=== PATIENT | male | born 1930 | race Caucasian/White ===

== ENCOUNTER 2017-10-06 09:06 | Day surgery (SDC) | payer OTHER ==
--- OUTSIDE RECORDS SUMMARY | 2017-10-06 09:09 | XMS REPORT | Clinical Summary ---
:1930 Author Organization [facility] Address [address] [place] [address] Care Team Providers Name Role Phone Asked, No Pcp Primary Care Provider Unavailable Allergies Active Allergy Reactions Severity Noted Date Comments Iodine Hives High 08/12/2017 Current Medications Prescription Sig. Disp. Refills Start Date End Date Status benzonatate Take 100 mg by 06/26/2017 Active (TESSALON) 100 MG mouth as capsule needed for cough. carvedilol (COREG) Take 25 mg by 06/18/2017 Active 25 MG tablet mouth 2 (two) times a day with meals. ferrous sulfate 325 Take 325 mg by Active (65 FE) MG tablet mouth daily with breakfast. amLODIPine Take 5 mg by Active (NORVASC) 5 mg mouth 2 (two) tablet times a day. simvastatin (ZOCOR) Take 20 mg by Active 20 MG tablet mouth nightly. aspirin (ECOTRIN) Take 81 mg by Active 81 MG enteric mouth daily. coated tablet VIT Take 1 tablet Active C/E/ZN/COPPR/LUTEIN by mouth 2 /ZEAXAN (two) times a (PRESERVISION AREDS day. 2 ORAL) FOLIC Take 1 tablet Active ACID/MULTIVIT,IRON, by mouth ENROLLMENT ADVISOR (CENTRUM daily. ORAL) furosemide (LASIX) Take 80 mg by Active 40 mg tablet mouth daily. Pt normally takes PRN but has been taking daily for the last 2 weeks due to fluid build up SENNOSIDES/DOCUSATE Take 2 tablets Active SODIUM (SENOKOT-S by mouth as ORAL) needed. clopidogrel 07/29/2017 08/12/2017 Discontinued (PLAVIX) 75 mg tablet HEMOCYTE-PLUS 106 06/26/2017 08/12/2017 Discontinued mg iron- 1 mg capsule doxazosin (CARDURA) 06/28/2017 08/12/2017 Discontinued 2 MG tablet acetaminophen-codei Take 1 tablet 12 tablet 0 08/12/2017 08/15/2017 ne (TYLENOL WITH by mouth every CODEINE #3) 300-30 6 (six) hours mg per tablet as needed for moderate pain for up to 3 days. 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 (Primary Dx) 08/12/2017 Hospital Encounter General Surgery Kee Curran MD 08/12/2017 Anesthesia Event General Surgery Daria Huerta MD 08/12/2017 Procedure Pass General Surgery 08/12/2017 Surgery General Surgery Kee Curran Left UPPER EXTREMITY MD Casey AV FISTULA CREATION after 10/05/2016 Social History Tobacco Use Types Packs/Day Years Used Date Never Smoker Smokeless Tobacco: Never Used Alcohol Use Drinks/Week oz/Week Comments No Sex Assigned at Date Recorded Not on file Last Filed Vital Signs Vital Sign Reading Time Taken Blood Pressure 168/72 08/12/2017 6:17 PM CARDIOTHORACIC PHYSIOTHERAPIST Pulse 64 08/12/2017 6:17 PM CARDIOTHORACIC PHYSIOTHERAPIST Temperature 37.1 C (98.7 F) 08/12/2017 6:17 PM CARDIOTHORACIC PHYSIOTHERAPIST Respiratory Rate 16 08/12/2017 6:17 PM CARDIOTHORACIC PHYSIOTHERAPIST Oxygen Saturation 96% 08/12/2017 6:17 PM CARDIOTHORACIC PHYSIOTHERAPIST Inhaled Oxygen Concentration - - Weight 83.5 kg (184 lb) 08/12/2017 11:51 AM CARDIOTHORACIC PHYSIOTHERAPIST Height 177.8 cm (5' 10") 08/12/2017 11:51 AM CARDIOTHORACIC PHYSIOTHERAPIST Body Mass Index 26.4 08/12/2017 11:51 AM CARDIOTHORACIC PHYSIOTHERAPIST Plan of Treatment Date Type Specialty Care Team Description 10/08/2017 Office Visit General Surgery Kee Curran MD [address] [facility] [address] [place] [id number] Health Maintenance Due Date Last Done Comments SHINGRIX VACCINE (#1) 1980 ZOSTER VACCINE 1990 PNEUMOCOCCAL POLYSACCHARIDE VACCINE AGE 65 AND OVER 1995 PNEUMOCOCCAL-13 1995 INFLUENZA VACCINE 01/06/2018 Procedures Procedure Name Priority Date/Time Associated Diagnosis Comments OR AN ELECTIVE Routine 08/12/2017 3:10 PM SUPRAGLOTTIC AIRWAY CARDIOTHORACIC PHYSIOTHERAPIST Procedure Note - Wilmer Contreras MD - 08/12/2017 3:10 PM CARDIOTHORACIC PHYSIOTHERAPIST Airway Performed by: DARIA HUERTA Authorized by: DARIA HUERTA Location: OR Urgency: Elective Difficult Airway: No Anesthesiologist: DARIA HUERTA Performed by: anesthesiologist Preoxygenated with 100% O2: Yes C-spine Precautions Maintained Throughout: Yes Mask Ventilation: Easy mask Final Airway Type: Supraglottic airway Final LMA: Classic LMA Size: 4 Number of Attempts at Approach: 1 Left UPPER EXTREMITY AV FISTULA 08/12/2017 2:45 PM CARDIOTHORACIC PHYSIOTHERAPIST End stage renal disease CREATION Case Notes C-ARM Special Needs C-ARM after 10/05/2016 Results Potassium, syringe (08/12/2017 11:45 AM) Component Value Ref Range Potassium, syringe 4.7 3.5 - 5.0 mEq/L Specimen Performing Laboratory Blood [facility] DEPARTMENT OF PATHOLOGY AND GENOMIC MEDICINE [address] [place] [address] Hemoglobin, syringe (08/12/2017 11:45 AM) Component Value Ref Range Hemoglobin, syringe 9.3 (L) 14.0 - 18.0 g/dL Specimen Performing Laboratory Blood [facility] DEPARTMENT OF PATHOLOGY AND GENOMIC MEDICINE [address] [place] [address] Glucose level, syringe (08/12/2017 11:45 AM) Component Value Ref Range Glucose, syringe 96 65 - 99 mg/dL Specimen Performing Laboratory Blood [facility] DEPARTMENT OF PATHOLOGY AND GENOMIC MEDICINE [address] [place] [address] after 10/05/2016 Insurance Payer Benefit Plan / Group Subscriber ID Type Phone Address MEDICARE MEDICARE PART A AND B xxxxxxxxxx Medicare [place], [place] AETNA AETNA PPO OPEN CHOICE xxxxxxxxx PPO [employer] Self 1930 Home: [address] Liability [phone] [phone] [place] [address]
[2017-10-06] MEDS ORDERED: NA CHLORIDE 0.9% 1,000 ML ONE (09:35)
[2017-10-06 09:39] LABS: Absolute Lymphocytes (CBC) 1.1 K/uL (0.7-4.9); Absolute Monocytes 0.6 K/uL (0.1-1.3); Absolute Neutrophil 3.9 K/uL (1.8-8.0); Basophils % 0.8 % (0-1.3); Eosinophils % 4.4 % (0-4.4); Hematocrit 24.5 % (39.6-49.0); Lymphocytes % 18.4 % (15.3-44.8); MCH 31.1 pg (27.0-35.0); MCV 91.8 fL (80-100); MPV 6.5 fL (7.6-11.3); Monocytes % 9.6 % (3.3-12.3); RBC Red Blood Cell Count 2.67 M/uL (4.33-5.43)
[2017-10-06 09:41] LABS: Potassium 4.4 mEq/L (3.6-5.0)
[2017-10-06] MEDS ORDERED: NS 0.9% VIAL 10 ML ONE (09:58)
[2017-10-06] MEDS ORDERED: HEPARIN 5000 UNIT/ML 1 ML VIAL ONE (09:59)
[2017-10-06] MEDS ORDERED: LIDOCAINE 1% 20 ML MDV ONE (09:59)
[2017-10-06] MEDS ORDERED: NA CHLORIDE 0.9% 100 ML IV ONE (09:59)
[2017-10-06] MEDS ORDERED: PROPOFOL 200 MG/20 ML VIAL IV ONE ×2 (10:17→11:31)
[2017-10-06] MEDS ORDERED: FENTANYL CITR 100 MCG/2 ML ONE (10:17)
[2017-10-06] MEDS ORDERED: LIDOCAINE 2% MPF 5 ML VIAL ONE (10:17)
[2017-10-06] MEDS ORDERED: CEFAZOLIN SODIUM 1 GM/VIAL ONE (11:28)
--- NOTE | 2017-10-06 11:51 | RAD REPORT ---
EXAM DESCRIPTION: RAD - Fluoroscopy <1 Hour - 10/06/2017 11:46 am CLINICAL HISTORY: Venous catheter insertion. COMPARISON: None. FINDINGS: Fluoroscopic imaging is submitted from placement of a venous catheter. Details of the pro cedure not available.
--- NOTE | 2017-10-06 12:14 | RAD REPORT ---
EXAM DESCRIPTION: RAD - Chest Single View - 10/06/2017 12:07 pm CLINICAL HISTORY: Venous catheter placement COMPARISON: 10/05/2017 FINDINGS: Portable technique limits examination quality. Right-sided venous catheter its tip in the SVC. No postprocedure pneumothorax. Moderate left pleural effusion again noted. The heart is normal in size. No displaced fractures. IMPRESSION: No postprocedure pneumothorax.
[2017-10-06] MEDS ORDERED: HYDROCODONE/APAP 7.5/325 MG TAB ONE (12:59)
[2017-10-06 13:28] VITALS: BP 153/51; TEMP 97.7; O2SAT 98
--- NOTE | 2017-10-07 00:53 | OP ---
Date of Procedure: 10/06/2017 Surgeon: Arnie Mena MD Preoperative Diagnosis: End-stage renal disease. Postoperative Diagnosis: End-stage renal disease. Procedure: Placement of right IJ Tesio catheter and interpretation of intraoperative fluoroscopy. Estimated Blood Loss: Minimal. Specimen: None. Findings: Normal anatomy. Anesthesia: MAC. Disposition: The patient tolerated the procedure in stable condition and was taken to recovery in go od general condition. Procedure In Detail: The patient was brought to the OR and placed in supine position. MAC anesthesi a was begun. The patient was prepped and draped in usual sterile fashion. Lidocaine 1% was infiltra herson locally. An 18-gauge needle was used to access the right IJ vein. Guidewire was passed. Positi on was confirmed with fluoroscopy. Counterincision was made on the right anterior chest. Tunneling device was used to tunnel the catheter between the 2 wounds. Seldinger technique was used. Tip of t he catheter was placed in the SVC under direct vision and flushed with heparin and packed with hepari n with good blood flow. Then, 3-0 chromic was used to approximate the subcutaneous tissue and 3-0 ny jocy was used to secure the tube to the chest wall. Sterile dressing was applied. The patient was aw akened and taken to Recovery in good general condition. Chest x-ray has been ordered. Discharge Note: The patient will go to Day Surgery and home when stable. Disposition: Home. Condition: Stable. Discharge Instructions: Resume home medications and diet. Activity as tolerated. No heavy lifting. Remove outer dressing in 2 days. Shower. Keep wound clean and dry. Follow up in my office in 2 w eeks, call for appointment. Follow up in dialysis. /MODL Voice ID: [id number] Report ID: [id number]
== END 2017-10-06 13:22 | disposition home or self-care (01) ==
LOC: OR 09:06
PROVIDERS: ATTEND Surgery
PROC: 05HM33Z Insertion of Infusion Device into Right Internal Jugular Vein, Percutaneous Approach (ICD-10-PCS; 2017-10-06)
PROC: 0JH63XZ Insertion of Tunneled Vascular Access Device into Chest Subcutaneous Tissue and Fascia, Percutaneous Approach (ICD-10-PCS; principal; 2017-10-06 11:00)
DX: I12.0 Hypertensive chronic kidney disease with stage 5 chronic kidney disease or end stage renal disease (principal); N18.6 End stage renal disease; Z85.038 Personal history of other malignant neoplasm of large intestine; Z88.3 Allergy status to other anti-infective agents
CPT/HCPCS: 36415; 36565; 71045; 80048; 85025; C1752; J0690; J1644; J3010; J7030; 76000

== ENCOUNTER 2017-10-11 16:07 | Inpatient (IN) | payer OTHER ==
--- OUTSIDE RECORDS SUMMARY | 2017-10-11 16:09 | XMS REPORT | Clinical Summary ---
:1930 Author Organization [facility] Address [address] [place] [address] Care Team Providers Name Role Phone Asked, [...] Take 1 tablet Active ACID/MULTIVIT,IRON, by mouth SOLAR FABRICATION TECHNICIAN (CENTRUM daily. 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 (Primary Dx) 08/12/2017 Hospital Encounter General Surgery Kee Curran MD 08/12/2017 Anesthesia Event General Surgery Daria Huerta MD 08/12/2017 Procedure Pass General Surgery 08/12/2017 Surgery General Surgery Kee Curran Left UPPER EXTREMITY MD Casey AV FISTULA CREATION after 10/10/2016 Social History Tobacco Use Types Packs/Day Years Used Date Never Smoker Smokeless Tobacco: Never Used Alcohol Use Drinks/Week oz/Week Comments No Sex Assigned at Date Recorded Not on file Last Filed Vital Signs Vital Sign Reading Time Taken Blood Pressure 168/72 08/12/2017 6:17 PM BRAKE LINING FINISHER Pulse 64 08/12/2017 6:17 PM BRAKE LINING FINISHER Temperature 37.1 C (98.7 F) 08/12/2017 6:17 PM BRAKE LINING FINISHER Respiratory Rate 16 08/12/2017 6:17 PM BRAKE LINING FINISHER Oxygen Saturation 96% 08/12/2017 6:17 PM BRAKE LINING FINISHER Inhaled Oxygen Concentration - - Weight 81.5 kg (179 lb 9.6 oz) 10/08/2017 2:56 PM CDT Height 177.8 cm (5' 10") 10/08/2017 2:56 PM CDT Body Mass Index 25.77 10/08/2017 2:56 PM CDT Plan of Treatment Health Maintenance Due Date Last Done Comments SHINGRIX VACCINE (#1) 1980 ZOSTER VACCINE 1990 PNEUMOCOCCAL POLYSACCHARIDE VACCINE AGE 65 AND OVER 1995 PNEUMOCOCCAL-13 1995 INFLUENZA VACCINE 01/06/2018 Procedures Procedure Name Priority Date/Time Associated Diagnosis Comments DC AN ELECTIVE Routine 08/12/2017 3:10 PM SUPRAGLOTTIC AIRWAY BRAKE LINING FINISHER Procedure Note - Wilmer Contreras MD - 08/12/2017 3:10 PM BRAKE LINING FINISHER Airway Performed by: DARIA HUERTA Authorized by: DARIA HUERTA Location: OR Urgency: Elective Difficult Airway: No Anesthesiologist: DARIA HUERTA Performed by: anesthesiologist Preoxygenated with 100% O2: Yes C-spine Precautions Maintained Throughout: Yes Mask Ventilation: Easy mask Final Airway Type: Supraglottic airway Final LMA: Classic LMA Size: 4 Number of Attempts at Approach: 1 Left UPPER EXTREMITY AV FISTULA 08/12/2017 2:45 PM BRAKE LINING FINISHER End stage renal disease CREATION Case Notes C-ARM Special Needs C-ARM after 10/10/2016 Results Potassium, syringe (08/12/2017 11:45 AM) Component Value Ref Range Potassium, syringe 4.7 3.5 - 5.0 mEq/L Specimen Performing Laboratory Blood [facility] DEPARTMENT OF PATHOLOGY AND GENOMIC MEDICINE [address] [place] [phone] Hemoglobin, syringe (08/12/2017 11:45 AM) Component Value Ref Range Hemoglobin, syringe 9.3 (L) 14.0 - 18.0 g/dL Specimen Performing Laboratory Blood [facility] DEPARTMENT OF PATHOLOGY AND GENOMIC MEDICINE [address] [place] [id number] Glucose level, syringe (08/12/2017 11:45 AM) Component Value Ref Range Glucose, syringe 96 65 - 99 mg/dL Specimen Performing Laboratory Blood [facility] DEPARTMENT OF PATHOLOGY AND GENOMIC MEDICINE [address] [place] [address] after 10/10/2016 Insurance Payer Benefit Plan / Group Subscriber ID Type Phone Address MEDICARE MEDICARE PART A AND B xxxxxxxxxx Medicare [place], [place] AETNA AETNA PPO OPEN CHOICE xxxxxxxxx PPO [employer] Self 1930 Home: [address] [phone] [place] [address]
[2017-10-11] MEDS ORDERED: FUROSEMIDE 40 MG/4 ML VIAL ONE (16:37)
[2017-10-11 17:17] LABS: Absolute Monocytes 0.9 K/uL (0.1-1.3); Absolute Neutrophil 8.8 K/uL (1.8-8.0); Basophils % 0.7 % (0-1.3); Hematocrit 23.7 % (39.6-49.0); Lymphocytes % 8.9 % (15.3-44.8); MCH 30.2 pg (27.0-35.0); MCV 92.1 fL (80-100); MPV 6.8 fL (7.6-11.3); Monocytes % 8.6 % (3.3-12.3); RBC Red Blood Cell Count 2.58 M/uL (4.33-5.43)
[2017-10-11 17:19] LABS: Protime INR 1.23
--- NOTE | 2017-10-11 17:31 | RAD REPORT ---
EXAM DESCRIPTION: RAD - Chest Single View - 10/11/2017 5:25 pm CLINICAL HISTORY: Shortness of breath COMPARISON: 10/06/2017 FINDINGS: Portable technique limits examination quality. Moderate left pleural effusion is noted, chronic in appearing unchanged since prior study. Trace righ t pleural effusion is seen. Since the prior study, a moderate right lower lobe patchy opacity has dev eloped, likely representing pneumonia. Heart is moderately enlarged in size. Right-sided venous lauren ter tip in the SVC. IMPRESSION: Interval development of a patchy opacity in the right lower lobe suspicious for developi ng pneumonia. Trace right pleural effusion also present. Chronic moderate-size left pleural effusion, stable.
[2017-10-11 17:43] LABS: ALT/SGPT 11 IU/L (10-60); AST/SGOT 29 IU/L (10-42); Albumin 2.8 g/dL (3.2-5.5); Alkaline Phosphatase 74 IU/L (42-121); BUN Blood Urea Nitrogen 50 mg/dL (6-20); Bicarbonate 30 mEq/L (21-31); Bilirubin Direct < 0.1 mg/dL (0-0.2); Bilirubin Total 0.3 mg/dL (0.3-1.2); Glucose Level 133 mg/dL (65-120); Potassium 4.3 mEq/L (3.6-5.0); Protein, Total 6.8 g/dL (6.0-8.3); Sodium Level 138 mEq/L (135-145)
[2017-10-11] MEDS ORDERED: CEFTRIAXONE/SWI 1gm 1 GM/10 ML SYR ONE (17:43)
[2017-10-11] MEDS ORDERED: AZITHROMYCIN IV 500 MG in NA CHLORIDE 0.9% 250 ML IVPB ONE (18:00)
--- NOTE | 2017-10-11 18:08 | EDPHYS ---
Physician Documentation [facility] Name: Evans Thomas Age: 87 yrs Sex: Male : 1930 Arrival Date: 10/11/2017 Time: 16:15 Bed 2 Private MD: ED Physician Mg Collado HPI: 10/11 16:37 This 87 yrs old Male presents to ER via EMS with complaints of Shortness Of rn Breath. 16:37 The patient has shortness of breath at rest, with light activity. Onset: The rn symptoms/episode began/occurred last night. Duration: The symptoms are continuous. The patient's shortness of breath is aggravated by coughing, light activity, talking. Associated signs and symptoms: Pertinent positives: productive cough, Pertinent negatives: fever, hemoptysis, loss of consciousness. Severity of symptoms: At their worst the symptoms were moderate in the emergency department the symptoms are unchanged. The patient has experienced similar episodes in the past. Reports sob that began last night, worse this AM, refused transport at 0500, got worse, son convinced him to come, + CKD with first dialysis Thursday, no fever, + clear sputum, taking lasix, not making as much urine as normal. No oxygen at home, O2 sat in 70s for EMS.. Historical: - Allergies: 16:25 Iodine; jl7 - Home Meds: 19:37 amlodipine oral [Active]; aspirin 81 mg Oral chew 1 tab once daily [Active]; carvedilol jl7 Oral [Active]; clopidogrel 75 mg Oral tab 1 tab once daily [Active]; Simvastatin Oral [Active]; - PMHx: 16:25 Angina; CAD; colon cancer; High Cholesterol; Hypertension; jl7 - Immunization history:: Adult Immunizations unknown. - Family history:: not pertinent. - Social history:: Smoking status: unknown. - Hospitalizations: : No recent hospitalization is reported. ROS: 16:37 Constitutional: Negative for fever, chills, and weight loss, Eyes: Negative for injury, rn pain, redness, and discharge, Neck: Negative for injury, pain, and swelling, Cardiovascular: + edema and chest pain Respiratory: + sob and cough Abdomen/GI: Negative for abdominal pain, nausea, vomiting, diarrhea, and constipation, MS/Extremity: Negative for injury and deformity, Skin: Negative for injury, rash, and discoloration, Neuro: + generalized weakness Exam: 16:37 Constitutional: This is a well developed, male with moderate tachypnea and shallow rn breathing Head/Face: Normocephalic, atraumatic. Eyes: Pupils equal round and reactive to light, extra-ocular motions intact. Lids and lashes normal. Conjunctiva and sclera are non-icteric and not injected. Cornea within normal limits. Periorbital areas with no swelling, redness, or edema. ENT: dry MM, no stridor Neck: Trachea midline Cardiovascular: regular, no murmur Respiratory: coarse bilateral breath sounds, faint exp wheezing, + tachypnea, speaking 4 word sentences. Abdomen/GI: soft, non-tender, + ventral hernia/diastasis MS/ Extremity: Pulses equal, no cyanosis. Neurovascular intact. Non-pitting edema bilateral lower ext Neuro: Awake, alert, answers questions, moves all 4 extremities. Vital Signs: 16:15 BP 170 / 69; Pulse 69; Resp 32 S; Temp 98.2(A); Pulse Ox 80% on R/A; jl7 16:45 BP 162 / 63; Pulse 71; Resp 27; Pulse Ox 97% on BiPAP; Pain 0/10; jl7 17:00 BP 167 / 66; Pulse 78; Resp 27 S; Pulse Ox 99% on BiPAP; jl7 17:30 BP 148 / 63; Pulse 63; Resp 25; Pulse Ox 99% on BiPAP; jl7 18:00 BP 157 / 67; Pulse 66; Resp 23; Pulse Ox 100% on BiPAP; jl7 18:30 BP 145 / 69; Pulse 64; Resp 21; Pulse Ox 99% on BiPAP; jl7 19:43 BP 140 / 63; Pulse 70; Resp 20; Temp 98.2(TE); Pulse Ox 99% on BiPAP; Pain 0/10; ak1 MDM: 16:20 Patient medically screened. rn 18:03 Differential diagnosis: Anemia CHF exacerbation, Myocardial Infarction pneumonia, rn Pneumothorax pulmonary edema, reactive airway disease, Sepsis. Data reviewed: vital signs, nurses notes, lab test result(s), EKG, radiologic studies, plain films, and as a result, I will admit patient. Counseling: I had a detailed discussion with the patient and/or guardian regarding: the historical points, exam findings, and any diagnostic results supporting the discharge/admit diagnosis, lab results, radiology results, the need for further work-up and treatment in the hospital. Admission orders: after a detailed discussion of the patient's condition and case, the admit orders are written by me. ED course: Pt with combination of CHF/PNA, improved a lot with bipap, stable, will admit for ABX and diuresis, may need dialysis tomorrow if does not respond to diuretics, still makes urine.. 10/11 16:22 Order name: Blood Culture Adult (2) rn 10/11 16:22 Order name: BMP; Complete Time: 17:55 rn 10/11 16:22 Order name: BNP; Complete Time: 17:55 rn 10/11 16:22 Order name: CBC with Diff; Complete Time: 17:23 rn 10/11 16:22 Order name: Hepatic Function; Complete Time: 17:55 rn 10/11 16:22 Order name: PT-INR; Complete Time: 17:22 rn 10/11 16:22 Order name: XRAY CXR (1 view); Complete Time: 17:55 rn 10/11 16:22 Order name: Ptt, Activated; Complete Time: 17:22 rn 10/11 16:22 Order name: Troponin (emerg Dept Use Only); Complete Time: 17:55 rn 10/11 16:22 Order name: BIPAP rn 10/11 16:22 Order name: Procalcitonin; Complete Time: 17:55 rn 10/11 16:22 Order name: EKG; Complete Time: 16:23 rn 10/11 16:22 Order name: Cardiac monitoring; Complete Time: 16:35 rn 10/11 16:22 Order name: EKG - Nurse/Tech; Complete Time: 17:05 rn 10/11 16:22 Order name: IV Saline Lock; Complete Time: 17: rn 10/11 16:22 Order name: Labs collected and sent; Complete Time: 17:05 rn 10/11 16:22 Order name: O2 Per Protocol; Complete Time: 16:35 rn 10/11 16:22 Order name: O2 Sat Monitoring; Complete Time: 16:35 rn Administered Medications: 16:45 Drug: Lasix 40 mg Route: IVP; Site: right antecubital; jl7 18:13 Follow up: Response: No adverse reaction jl7 18:02 Drug: Rocephin - (cefTRIAXone) 1 grams Route: IVPB; Infused Over: 30 mins; Site: right jl7 forearm; 18:04 Follow up: Response: No adverse reaction; IV Status: Completed infusion jl7 18:12 Drug: AZITHromycin 500 mg Route: IVPB; Infused Over: 1 hrs; Site: right forearm; jl7 19:21 Follow up: Response: No adverse reaction; IV Status: Completed infusion aa5 Disposition: 10/11/17 18:07 Hospitalization ordered by Tessy Seay for Inpatient Admission. Preliminary diagnosis are Unspecified combined systolic (congestive) and diastolic (congestive) heart failure, Pleural effusion, not elsewhere classified, Pneumonia, Hypoxemia. - Bed requested for Telemetry/MedSurg (Inpatient). - Status is Inpatient Admission. ak1 - Condition is Stable. - Problem is new. - Symptoms have improved. UTI on Admission? No Signatures: Dispatcher [employer] EDMS Liane Zabala RN RN Mg Collado MD MD rn Krenek, Amber, RN RN ak1 Loretta Mckeon RN RN 7 Latoya Mckinley Audri RN aa5 Corrections: (The following items were deleted from the chart) 18:21 18:07 Hospitalization Ordered by Tessy Seay MD for Inpatient Admission. Preliminary eb diagnosis is Unspecified combined systolic (congestive) and diastolic (congestive) heart failure; Pleural effusion, not elsewhere classified; Pneumonia; Hypoxemia. Bed requested for Telemetry/MedSurg (Inpatient). Status is Inpatient Admission. Condition is Stable. Problem is new. Symptoms have improved. UTI on Admission? No. rn 19:33 18:21 10/11/2017 18:07 Hospitalization Ordered by Tessy Seay MD for Inpatient kl Admission. Preliminary diagnosis is Unspecified combined systolic (congestive) and diastolic (congestive) heart failure; Pleural effusion, not elsewhere classified; Pneumonia; Hypoxemia. Bed requested for Telemetry/MedSurg (Inpatient). Status is Inpatient Admission. Condition is Stable. Problem is new. Symptoms have improved. UTI on Admission? No. eb 20:16 19:33 10/11/2017 18:07 Hospitalization Ordered by Tessy Seay MD for Inpatient ak1 Admission. Preliminary diagnosis is Unspecified combined systolic (congestive) and diastolic (congestive) heart failure; Pleural effusion, not elsewhere classified; Pneumonia; Hypoxemia. Bed requested for Telemetry/MedSurg (Inpatient). Status is Inpatient Admission. Condition is Stable. Problem is new. Symptoms have improved. UTI on Admission? No. kl
--- NOTE | 2017-10-11 18:08 | ER ---
Nurse's Notes [facility] Name: Evans Thomas Age: 87 yrs Sex: Male : 1930 Arrival Date: 10/11/2017 Time: 16:15 Bed 2 Private MD: Diagnosis: Unspecified combined systolic (congestive) and diastolic (congestive) heart failure;Pleural effusion, not elsewhere classified;Pneumonia;Hypoxemia Presentation: 10/11 16:16 Presenting complaint: EMS states: Started getting SOB last night, chest pain this jl7 morning with a cough, midsternal pain non-radiating, rated 2/10. Transition of care: patient was not received from another setting of care. Onset of symptoms was October 10, 2017. Initial Sepsis Screen: Does the patient meet any 2 criteria? RR > 20 per min. HR > 90 bpm. Yes Does the patient have a suspected source of infection? Yes: Productive cough/pneumonia If YES to both, name of provider notified: Mg Collado MD. Care prior to arrival: Medication(s) given: IV initiated. 20 GA, in the right antecubital area, Oxygen administered. via nasal cannula. 16:16 Method Of Arrival: EMS: [facility] 16:16 Acuity: DWAIN 2 jl7 Triage Assessment: 16:15 General: Appears distressed, Behavior is cooperative. Pain: Denies pain. Neuro: Level jl7 of Consciousness is awake, alert, obeys commands. Cardiovascular: Heart tones S1 S2 present. Respiratory: Reports shortness of breath at rest Airway is patent Respiratory effort is even, labored, with retractions, Respiratory pattern is symmetrical, tachypnea Breath sounds with crackles in right upper lobe and left upper lobe Onset: The symptoms/episode began/occurred Pt's family reports "He's had a cough for a while but the SOB just started about 3 this morning and got worse this afternoon.", the patient has severe shortness of breath. Derm: Skin is moist, Skin is pink, Skin temperature is warm. Historical: - Allergies: 16:25 Iodine; jl7 - Home Meds: 19:37 amlodipine oral [Active]; aspirin 81 mg Oral chew 1 tab once daily [Active]; carvedilol jl7 Oral [Active]; clopidogrel 75 mg Oral tab 1 tab once daily [Active]; Simvastatin Oral [Active]; - PMHx: 16:25 Angina; CAD; colon cancer; High Cholesterol; Hypertension; jl7 - Immunization history:: Adult Immunizations unknown. - Family history:: not pertinent. - Social history:: Smoking status: unknown. - Hospitalizations: : No recent hospitalization is reported. Screenin:00 Abuse screen: Denies threats or abuse. Denies injuries from another. Nutritional jl7 screening: No deficits noted. Tuberculosis screening: No symptoms or risk factors identified. Fall Risk IV access (20 points). Gait- Weak (10 pts.). Mental Status- Oriented to own ability (0 pts). Total Ramirez Fall Scale indicates Low Risk Score (25-44 pts). Fall prevention measures have been instituted. Side Rails Up X 2 Placed close to Nursing Station Frequent Obs/Assesments occuring Family Present and informed to notify staff if they need to leave bedside As available Patient and Family Educated on Fall Prevention Program and strategies. Assessment: 16:15 General: See triage assessment. jl7 17:15 Reassessment: Patient and/or family updated on plan of care and expected duration. Pain jl7 level reassessed. Patient is alert, oriented x 3, equal unlabored respirations, skin warm/dry/pink. Pt reports the BiPap is helping. 17:47 Reassessment: Dr. Collado notified of critical lab, Troponin, 2.52. ss 18:15 Reassessment: Patient and/or family updated on plan of care and expected duration. Pain jl7 level reassessed. Patient is alert, oriented x 3, equal unlabored respirations, skin warm/dry/pink. 19:41 Cardiovascular: Rhythm is regular. ak1 Vital Signs: 16:15 BP 170 / 69; Pulse 69; Resp 32 S; Temp 98.2(A); Pulse Ox 80% on R/A; jl7 16:45 BP 162 / 63; Pulse 71; Resp 27; Pulse Ox 97% on BiPAP; Pain 0/10; jl7 17:00 BP 167 / 66; Pulse 78; Resp 27 S; Pulse Ox 99% on BiPAP; jl7 17:30 BP 148 / 63; Pulse 63; Resp 25; Pulse Ox 99% on BiPAP; jl7 18:00 BP 157 / 67; Pulse 66; Resp 23; Pulse Ox 100% on BiPAP; jl7 18:30 BP 145 / 69; Pulse 64; Resp 21; Pulse Ox 99% on BiPAP; jl7 19:43 BP 140 / 63; Pulse 70; Resp 20; Temp 98.2(TE); Pulse Ox 99% on BiPAP; Pain 0/10; ak1 ED Course: 16:15 Patient arrived in ED. jl7 16:15 Arm band placed on right wrist. jl7 16:15 Patient has correct armband on for positive identification. Placed in gown. Bed in low jl7 position. Call light in reach. Side rails up X2. checker/stocker on. Pulse ox on. NIBP on. Warm blanket given. 16:15 Maintain EMS IV. Dressing intact. Good blood return noted. Site clean \\T\\ dry. Gauge \\T\\ jl 7 site: 20 right AC. 16:20 Mg Collado MD is Attending Physician. rn 16:22 Triage completed. jl7 17:00 Inserted saline lock: 20 gauge in right forearm, using aseptic technique. Blood jl7 collected. 17:00 Initial lab(s) drawn, by vt, sent to lab. First set of blood cultures drawn by vt. jl7 17:23 X-ray completed. Portable x-ray completed in exam room. Patient tolerated procedure la2 well. 17:26 XRAY CXR (1 view) In Process Unspecified. EDMS 17:37 Loretta Mckeon RN is Primary Nurse. jl7 18:06 Tessy Seay MD is Hospitalizing Provider. rn 18:30 Second set of blood cultures drawn by vt. jl7 19:41 No provider procedures requiring assistance completed. Patient admitted, IV remains in ak1 place. Administered Medications: 16:45 Drug: Lasix 40 mg Route: IVP; Site: right antecubital; jl7 18:13 Follow up: Response: No adverse reaction jl7 18:02 Drug: Rocephin - (cefTRIAXone) 1 grams Route: IVPB; Infused Over: 30 mins; Site: right jl7 forearm; 18:04 Follow up: Response: No adverse reaction; IV Status: Completed infusion jl7 18:12 Drug: AZITHromycin 500 mg Route: IVPB; Infused Over: 1 hrs; Site: right forearm; jl7 19:21 Follow up: Response: No adverse reaction; IV Status: Completed infusion aa5 Outcome: 18:07 Decision to Hospitalize by Provider. rn 19:41 Condition: stable ak1 19:41 Instructed on the need for admit. 19:52 Admitted to Tele accompanied by tech, family with patient, via stretcher, room 230, ak1 with oxygen, with chart, Report called to giuseppe 20:16 Patient left the ED. ak1 Signatures: Dispatcher [employer] EDMg Mims MD MD rn Calderon, Audri, RN RN aa5 Petrona Tristan RN RN ss Krenek, Amber, RN RN ak1 Loretta Mckeon RN RN jl7 Fatemeh Han
[2017-10-11] MEDS ORDERED: ACETAMINOPHEN 500 MG TAB PO PRN (19:20)
[2017-10-11] MEDS ORDERED: ONDANSETRON 4 MG/2 ML VIAL IV PRN (19:20)
[2017-10-11] MEDS ORDERED: FUROSEMIDE 40 MG/4 ML VIAL IV ONE (20:40)
--- NOTE | 2017-10-11 20:49 | P.HP ---
Certification for Inpatient Patient admitted to: Inpatient With expected LOS: >2 Midnights Practitioner: I am a practitioner with admitting privileges, knowledge of patient current condition, hospital course, and medical plan of care. Services: Services provided to patient in accordance with Admission requirements found in Title 42 Section 412.3 of the Code of Federal Regulations Patient History Date of Service: 10/11/17 Reason for admission: acute respiratory failure History of Present Illness: Mr Thomas is an 87 years old male with multiple medical problems including CAD, S /P stenting, HTN, ESRD first time HD 2 days ago, who has had chest pain starting last night. He describes the pain as pressure like, associated with nausea and SOB, no radiating, 10/10 of intensity. He has had some cough as well but no fever or chills. Early this morning his symptoms got worse, he refused to come to ED. Later his SOB was even worse and called 911. O2 sat at home was 70%, then in ER was 80% on RA. He was placed on BiPAP in ED. Work up remarkable for normal WBC count, Hgb 7.8 mg/dl, no obvious signs of active bleeding. Trop I significantly elevated, 2.52, procalcitonin normal. 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 CXR remarkable for right lower lobe patchy opacity, left chronic pleural effusion stable. At my examination, his chest pain was resolved , still on BiPAP. Allergies doxycycline Allergy (Verified 10/11/17 20:32) Itching/Hives/Rash iodine [Iodine] Allergy (Verified 06/18/17 20:09) Anaphylaxis Home Medications: Amlodipine [Norvasc*] 5 mg PO BID 09/08/16 Aspirin [Aspirin EC 81 MG] 81 mg PO DAILY 09/08/16 Simvastatin [Zocor*] 20 mg PO BEDTIME 09/08/16 Carvedilol [Coreg*] 25 mg PO BID 6AM 6PM #60 tab 06/18/17 Benzonatate [Tessalon Perle*] 100 mg PO TID PRN #90 cap 06/26/17 Docusate/Senna [Senokot-S*] 2 tab PO BEDTIME PRN #60 tab 06/26/17 Ferrous Sulfate [Ferrous Sulfate*] 325 mg PO DAILY #30 tab 06/26/17 Multivit,Ther Iron,Ca,FA & Min [Centrum Tablet*] 1 tab PO DAILY #30 tab Zinc Oxide [Zinc Oxide 20%*] 1 appl TOP BIDP PRN #1 tube 06/26/17 - Past Medical/Surgical History Diabetic: No -: Angina -: CAD -: HTN -: Hylerlipidemia -: Colon Ca -: CKD Stage 3 -: skin Ca- squamous cell-left ear, face & right hand -: dyspnea -: nephrotic range proteinuria -: renal anasarca -: part of colon removed(2007) -: removal of skin Ca from left ear, face & right hand(different times) -: right shoulder surgery - Social History Alcohol use: No CD- Drugs: No Caffeine use: No Place of Residence: Home Review of Systems 10-point ROS is otherwise unremarkable Physical Examination - Vital Signs Temperature: 98.2 F Blood Pressure: 140/63 Pulse: 70 Respirations: 20 - Physical Exam General: Alert, In no apparent distress HEENT: Atraumatic, PERRLA, Mucous membr. moist/pink, EOMI, Sclerae nonicteric Neck: Supple, 2+ carotid pulse no bruit, No LAD, Without JVD or thyroid abnormality Respiratory: Normal air movement, Crackles/rales (right base crackles) Cardiovascular: Normal S1 S2, No gallops Gastrointestinal: Normal bowel sounds, No tenderness Musculoskeletal: No tenderness Integumentary: No rashes Neurological: Normal speech, Normal strength at 5/5 x4 extr, Normal tone, Normal affect Lymphatics: No axilla or inguinal lymphadenopathy - Studies Laboratory Data (last 24 hrs) 10/11/17 16:55: PT 14.6 H, INR 1.23, APTT 32.4 10/11/17 16:55: WBC 10.9 D, Hgb 7.8 L*, Hct 23.7 L, Plt Count 322 10/11/17 16:55: B-Natriuretic Peptide 1853 H 10/11/17 16:55: Sodium 138, Potassium 4.3, BUN 50 H, Creatinine 3.68 H, Glucose 133 H, Total Bilirubin 0.3, AST 29, ALT 11, Alkaline Phosphatase 74 Assessment and Plan - Problems (Diagnosis) (1) ESRD on dialysis Current Visit: Yes Status: Acute (2) Pneumonia Current Visit: Yes Status: Acute Qualifiers: Pneumonia type: due to unspecified organism (3) Acute respiratory failure Current Visit: Yes Status: Acute Qualifiers: Respiratory failure complication: hypoxia Qualified Code(s): J96.01 - Acute respiratory failure with hypoxia (4) NSTEMI (non-ST elevated myocardial infarction) Current Visit: Yes Status: Acute (5) History of cancer Onset Date: 06/11/17 Current Visit: No Status: Acute (6) CAD (coronary artery disease) Onset Date: 06/11/17 Current Visit: No Status: Chronic Qualifiers: Coronary Disease-Associated Artery/Lesion type: [place] artery [place] vs. transplanted heart: [place] heart Associated angina: without angina Qualified Code(s): I25.10 - Atherosclerotic heart disease of [place] coronary artery without angina pectoris (7) HTN (hypertension) Onset Date: 06/11/17 Current Visit: No Status: Chronic Qualifiers: Hypertension type: essential hypertension Qualified Code(s): I10 - Essential (primary) hypertension - Plan The patient has been admitted to the hospital due to acute respiratory failure. Most likely etiology is a combination of volume overload with possible pneumonia. Will start IV empiric antibiotic, IV diuretics, Consult Neprhologist for HD orders, Consult Tuber Helper, Transfuse 1 UNIT of blood due to anemia in context of ACS, Hgb 7.8 mg/dl, goal Hgb close to 10. - Advance Directives Does patient have a Living Will: Yes Does patient have a Durable POA for Healthcare: Yes - Code Status/Comfort Care Code Status Assessed: Yes Code Status: Full Code
[2017-10-11] MEDS ORDERED: CEFTRIAXONE 1 GM/NS 50 ML 1 GM/50 ML BAG IV SCH (21:00)
[2017-10-11] MEDS ORDERED: NA CHLORIDE 0.9% 250 ML IV SCH (21:00)
[2017-10-11 21:35] VITALS: BMI 26.2
[2017-10-11] MEDS: ASPIRIN EC 81 MG TAB PO SCH (22:56)
[2017-10-11] MEDS: ATORVASTATIN 10 MG TAB PO SCH (22:56)
[2017-10-11] MEDS: CARVEDILOL 3.125 MG TAB PO SCH (22:56)
[2017-10-11] MEDS: ENOXAPARIN 80 MG/0.8 ML SQ SCH (22:57)
[2017-10-12] MEDS: CARVEDILOL 3.125 MG TAB PO SCH (05:20)
[2017-10-12 05:35] LABS: Absolute Lymphocytes (CBC) 1.2 K/uL (0.7-4.9); Absolute Monocytes 0.9 K/uL (0.1-1.3); Absolute Neutrophil 6.3 K/uL (1.8-8.0); Basophils % 0.6 % (0-1.3); Eosinophils % 0.9 % (0-4.4); Hematocrit 24.1 % (39.6-49.0); Lymphocytes % 13.6 % (15.3-44.8); MCV 90.5 fL (80-100); Monocytes % 11.2 % (3.3-12.3); RBC Red Blood Cell Count 2.67 M/uL (4.33-5.43)
[2017-10-12 05:55] LABS: Albumin 2.2 g/dL (3.2-5.5); Bilirubin Total 0.5 mg/dL (0.3-1.2); Potassium 4.6 mEq/L (3.6-5.0); Protein, Total 5.3 g/dL (6.0-8.3)
[2017-10-12] MEDS ORDERED: CARVEDILOL 3.125 MG TAB PO SCH (06:00)
--- NOTE | 2017-10-12 06:55 | EKG ---
Test Date: 2017-10-11 Test Time: 16:35:53 Overlock Collar Setter: ADINA MEASUREMENT RESULTS: Intervals: Rate: 71 AK: 260 QRSD: 88 QT: 408 QTc: 443 Holiday: P: 17 AK: 260 QRS: 51 T: 19 INTERPRETIVE STATEMENTS: Sinus rhythm with 1st degree AV block Anterior infarct, age undetermined Abnormal ECG Compared to ECG 06/10/2017 16:00:12 Myocardial infarct finding now present Sinus bradycardia no longer present Electronically Signed On 10-12-17 06:53:45 CDT by Jonathan Carmona
[2017-10-12] MEDS ORDERED: ASPIRIN EC 81 MG TAB PO SCH (09:00)
[2017-10-12] MEDS ORDERED: SIMVASTATIN 20 MG PO SCH (09:00)
[2017-10-12] MEDS: CEFTRIAXONE/SWI 1gm 1 GM/10 ML SYR IV SCH ×2 (09:21→20:53)
[2017-10-12] MEDS: ASPIRIN EC 81 MG TAB PO SCH (09:21)
[2017-10-12] MEDS: AZITHROMYCIN IV 500 MG in NA CHLORIDE 0.9% 250 ML IVPB SCH (09:22)
[2017-10-12] MEDS: CALCITROL 0.25 MCG CAP PO SCH (14:00)
--- NOTE | 2017-10-12 14:57 | RAD REPORT ---
EXAM DESCRIPTION: RAD - Barium Swallow Modified - 10/12/2017 2:45 pm CLINICAL HISTORY: Suspected aspiration COMPARISON: None. TECHNIQUE: The patient was given liquid, semi-solid and solid forms of barium. Lateral view fluorosc opic imaging was performed in conjunction with [facility]. FINDINGS: No aspiration was observed during the examination and no laryngeal penetration confirmed. There was pooling of contrast in the valleculae and piriform sinuses. IMPRESSION: No aspiration confirmed. Findings are further detailed on speech pathology report.
--- NOTE | 2017-10-12 16:04 | ECHO ---
HEIGHT: 5 ft 10 in WEIGHT: 183 lb 0 oz DATE OF STUDY: 10/12/[address]: Jonathan Carmona MD 2-DIMENSIONAL: YES M.MODE: YES DOPPLER: YES COLOR FLOW: YES TDS: PORTABLE: DEFINITY: BUBBLE STUDY: DIAGNOSIS: CONGESTIVE HEART FAILURE CARDIAC HISTORY: CATHERIZATION: YES SURGERY: NO PROSTHETIC VALVE: NO PACEMAKER: NO MEASUREMENTS (cm) DIASTOLIC (NORMALS) SYSTOLIC (NORMALS) IVSd 1.3 (0.6-1.2) LA Diam 3.6 (1.9-4.0) LVEF 57% LVIDd 5.4 (3.5-5.7) LVIDs 3.7 (2.0-3.5) %FS 30% LVPWd 1.3 (0.6-1.2) Ao Diam 3.4 (2.0-3.7) 2 DIMENSIONAL ASSESSMENT: RIGHT ATRIUM: NORMAL LEFT ATRIUM: NORMAL RIGHT VENTRICLE: NORMAL LEFT VENTRICLE: NORMAL TRICUSPID VALVE: NORMAL MITRAL VALVE: NORMAL PULMONIC VALVE: NORMAL AORTIC VALVE: NORMAL PERICARDIAL EFFUSION: NONE AORTIC ROOT: NORMAL LEFT VENTRICULAR WALL MOTION: NORMAL DOPPLER/COLOR FLOW: MILD TO MODERATE MITRAL REGURGITATION. MILD AORTIC REGURGITATION. COMMENTS: NORMAL LEFT VENTRICULAR EJECTION FRACTION. NORMAL 2-DIMENSIONAL ECHOCARDIOGRAM. MILD TO MODERATE MITRAL REGURGITATION. MILD AORTIC REGURGITATION. TECHNOLOGIST: RAY BRASWELL
--- NOTE | 2017-10-12 19:19 | P.PN ---
Subjective Date of Service: 10/12/17 Chief Complaint: acute respiratory failure Subjective: No C/O voiced, Improving, Doing well Review of Systems General: As per HPI Physical Examination - Vital Signs Temperature: 97.6 F Blood Pressure: 166/77 Pulse: 63 Respirations: 16 Pulse Ox (%): 99 - Physical Exam General: Alert, Oriented x3, Mild distress HEENT: Atraumatic, PERRLA, EOMI Neck: Supple, JVD distended Respiratory: Normal air movement, Crackles/rales Cardiovascular: Regular rate/rhythm, Normal S1 S2 Gastrointestinal: Normal bowel sounds, No tenderness Musculoskeletal: No tenderness Integumentary: No rashes Neurological: Normal speech, Normal tone, Normal affect Lymphatics: No axilla or inguinal lymphadenopathy - Studies Microbiology Data (last 24 hrs): 10/11/17 18:00 Blood - Blood Anaerobic Blood Culture - Final Medications List Reviewed: Yes Assessment & Plan - Problems (Diagnosis) (1) Acute respiratory failure Onset Date: 10/12/17 Current Visit: Yes Status: Acute Plan: Most Likely 2/2 to volume overload vs PNA -IV lasix and Abx on board -Currently on BIPAP. Will continue. -Repeat xray and lab in AM Qualifiers: Respiratory failure complication: hypoxia Qualified Code(s): J96.01 - Acute respiratory failure with hypoxia (2) ESRD on dialysis Onset Date: 10/12/17 Current Visit: Yes Status: Acute Plan: Nephrology consulted. -HD restarted here in the hospital (3) Pneumonia Onset Date: 10/12/17 Current Visit: Yes Status: Acute Plan: PNA on Xray -IV abx -Sputum and blood culture pending Qualifiers: Pneumonia type: due to unspecified organism (4) Debility Onset Date: 06/22/17 Current Visit: No Status: Chronic (5) CAD (coronary artery disease) Onset Date: 06/11/17 Current Visit: No Status: Chronic Plan: With Elevated Troponin. -cardiology consulted. -Reccs Cardiac Cath outpt once pt is more stable -Continue medical mgmt Qualifiers: Coronary Disease-Associated Artery/Lesion type: [place] artery [place] vs. transplanted heart: [place] heart Associated angina: without angina Qualified Code(s): I25.10 - Atherosclerotic heart disease of [place] coronary artery without angina pectoris (6) HTN (hypertension) Onset Date: 06/11/17 Current Visit: No Status: Chronic Qualifiers: Hypertension type: essential hypertension Qualified Code(s): I10 - Essential (primary) hypertension (7) Hyperlipidemia Onset Date: 06/11/17 Current Visit: No Status: Chronic Qualifiers: Hyperlipidemia type: mixed hyperlipidemia Qualified Code(s): E78.2 - Mixed hyperlipidemia Discharge Plan: Home Plan to discharge in: 48 Hours - Code Status/Comfort Care Code Status Assessed: Yes Critical Care: No
[2017-10-12] MEDS: CARVEDILOL 25 MG TAB PO SCH (20:52)
[2017-10-12] MEDS: ATORVASTATIN 10 MG TAB PO SCH (20:53)
[2017-10-12] MEDS: ENOXAPARIN 80 MG/0.8 ML SQ SCH (20:53)
[2017-10-12] MEDS: JUVEN PACKET PO SCH (21:00)
[2017-10-12] MEDS: DOCUSATE NA/SENNA CONC 1 TAB PO PRN (21:53)
[2017-10-12] MEDS ORDERED: EPOETIN ALFA 20,000 UNIT/ML SQ SCH (23:00)
[2017-10-12] MEDS ORDERED: EPOETIN ALFA 10,000 UNIT/ML VIAL ONE (23:17)
--- NOTE | 2017-10-13 01:23 | CON ---
Date of Consultation: 10/12/2017 Chief Complaint: End stage renal disease, shortness of breath. History Of Present Illness: The patient came to the hospital because of some chest pressure and chest pain and shortness of breath. He has end-stage renal disease and has been treated with dialysis. The patient presented to the hospital because of chest pain, pressure like, associated with nausea, shortness of breath. He has history of coronary artery disease, status post PTCA. He has history of hypertension. The patient was found to have hypoxemia, SpO2 was 70% . It improved somewhat to 80%. The patient was started on BiPAP for severe shortness of breath. He was found to have elevated troponin up to 2.52. Procalcitonin was normal. EKG showed changes consistent with old anterior infarct. Chest x-ray showed patchy opacity and left chronic pleural effusion. The patient was started on BiPAP for shortness of breath and urgent dialysis was ordered today for control of azotemia and hypervolemia. Review of Systems: Unobtainable. The patient remains on BiPAP. Past Medical History: Coronary artery disease, status post PTCA; hypertension; hyperlipidemia; end-stage renal disease; hypertensive heart and kidney disease; angina; anemia; CKD; renal osteodystrophy; colon cancer; history of nephrotic range proteinuria; colon surgery in 2007; surgery for skin cancer removal; right shoulder surgery. Social History: Denies tobacco, alcohol, or illicit drugs. Family History: chronic kidney disease in the family. Physical Examination: Vital Signs: Blood pressure is 180/60, heart rate is 70, temperature 98.2, respiratory rate 22. General: The patient is alert, although he remains in mild to moderate respiratory distress. He is on BiPAP. Eyes: Anicteric sclerae. EOMI. Ears, nose, mouth, and throat: Oral mucosa moist. No pallor. Neck: Supple. No bruits. No JVD. No thyromegaly. Respiratory: Crackles bilaterally present. No wheezing. No rhonchi. Cardiovascular: S1, S2. No pericardial friction or rub. Abdomen: Soft, benign, nontender. No rebound. No guarding. Extremities: Edema present in both legs. Neurological: Moving extremities. Cranial nerves intact. Psychiatric: Alert and oriented x3. Normal affect. Laboratory Data: PT 14.6, INR 1.23, PTT 32.4. WBC 10.9, hemoglobin 7.8, hematocrit 23.7, platelet count 322. BNP 1853. Sodium 138, potassium 4.3. BUN 50, creatinine 3.68, glucose 133, total bilirubin 0.3. AST 29, ALT 11. Impression And Plan: 1. End-stage renal disease. Emergent hemodialysis with ultrafiltration ordered to treat fluid overload and to provide treatment for congestive heart failure with hypoxemic respiratotu failure. 2. Respiratory failure, hypoxemia. Continue BiPAP and daily hemodialysis with ultrafiltration to treat fluid overload. 3. Congestive heart failure, acute on chronic with hypoxemic respiratory failure. The patient will continue p.o. fluid restriction and low-sodium diet. Plan is to order dialysis with ultrafiltration. The patient was found to have non-ST elevation myocardial infarction. Dialysis parameters adjusted accordingly. 4. Monitor electrolytes closely. Continue renal diet. 5. Pneumonia. Continue antibiotics and adjust dose to renal dose. 6. Hypertension, accelerated, volemia controlled ordered with dialysis. Continue low-sodium diet. Adjust blood pressure medication. 7. Anemia, [id number]. Continue GUNJAN and plan blood transfusion as needed. JEFF/MORENA Voice ID: [id number] Report ID: [id number] GREY
[2017-10-13] MEDS: JUVEN PACKET PO SCH ×2 (09:00→20:33)
[2017-10-13] MEDS: ASPIRIN EC 81 MG TAB PO SCH (09:20)
[2017-10-13] MEDS: AZITHROMYCIN IV 500 MG in NA CHLORIDE 0.9% 250 ML IVPB SCH (09:20)
[2017-10-13] MEDS: CEFTRIAXONE/SWI 1gm 1 GM/10 ML SYR IV SCH ×2 (09:20→20:27)
[2017-10-13] MEDS: CARVEDILOL 25 MG TAB PO SCH ×2 (09:20→20:27)
[2017-10-13] MEDS: FUROSEMIDE 40 MG TABLET PO SCH (09:20)
[2017-10-13] MEDS: FERROUS SULFATE 325 MG TAB PO SCH (09:20)
--- NOTE | 2017-10-13 16:14 | P.PN ---
Subjective Date of Service: 10/13/17 Chief Complaint: acute respiratory failure Patient seen and examined at bedside with RN. Chart reviewed. Patient doing well overall. No complaints to offer overnight. Review of Systems General: As per HPI Physical Examination - Vital Signs Temperature: 98.3 F Blood Pressure: 166/70 Pulse: 65 Respirations: 16 Pulse Ox (%): 100 - Physical Exam General: Alert, In no apparent distress HEENT: Atraumatic Neck: Supple, JVD not distended Respiratory: Normal air movement, Crackles/rales Cardiovascular: Regular rate/rhythm, Normal S1 S2 Gastrointestinal: Normal bowel sounds, No tenderness Musculoskeletal: No tenderness Integumentary: No rashes Neurological: Normal speech, Normal tone, Normal affect Lymphatics: No axilla or inguinal lymphadenopathy - Studies Microbiology Data (last 24 hrs): 10/11/17 18:00 Blood - Blood Anaerobic Blood Culture - Final Medications List Reviewed: Yes Assessment & Plan - Problems (Diagnosis) (1) Acute respiratory failure Onset Date: 10/12/17 Current Visit: Yes Status: Acute Plan: Most Likely 2/2 to volume overload vs PNA -IV lasix and Abx on board -Currently on NC. Will continue. Qualifiers: Respiratory failure complication: hypoxia Qualified Code(s): J96.01 - Acute respiratory failure with hypoxia (2) ESRD on dialysis Onset Date: 10/12/17 Current Visit: Yes Status: Acute Plan: Nephrology consulted. -HD restarted here in the hospital (3) Pneumonia Onset Date: 10/12/17 Current Visit: Yes Status: Acute Plan: PNA on Xray -IV abx -Sputum and blood culture pending Qualifiers: Pneumonia type: due to unspecified organism (4) Debility Onset Date: 06/22/17 Current Visit: No Status: Chronic (5) CAD (coronary artery disease) Onset Date: 06/11/17 Current Visit: No Status: Chronic Plan: With Elevated Troponin. -cardiology consulted. -Reccs Cardiac Cath outpt once pt is more stable -Continue medical mgmt Qualifiers: Coronary Disease-Associated Artery/Lesion type: [place] artery [place] vs. transplanted heart: [place] heart Associated angina: without angina Qualified Code(s): I25.10 - Atherosclerotic heart disease of [place] coronary artery without angina pectoris (6) HTN (hypertension) Onset Date: 06/11/17 Current Visit: No Status: Chronic Qualifiers: Hypertension type: essential hypertension Qualified Code(s): I10 - Essential (primary) hypertension (7) Hyperlipidemia Onset Date: 06/11/17 Current Visit: No Status: Chronic Qualifiers: Hyperlipidemia type: mixed hyperlipidemia Qualified Code(s): E78.2 - Mixed hyperlipidemia
--- NOTE | 2017-10-13 19:00 | PN ---
Date of Progress Note: 10/13/2017 Subjective: The patient was admitted with non-ST elevation MO, over volume. The patient had dialysi s yesterday and today is seen. On dialysis yesterday, we managed to remove 2400. Physical Examination: Vital Signs: When I saw the patient, blood pressure 166/70, pulse of 65. Chest: Crackles bilateral with decreased entry on the left base. Heart: S1, S2. Regular. Systolic murmur. Abdomen: Soft, nontender. Extremities: Plus edema. Laboratory Data: H and H 8.3/24.1, WBC 8.5. Sodium 141, potassium 4.6, bicarb 27, BUN 54, creatinin e 3.9, calcium 9.2. Troponin 5.6. Medications: Current medications the patient is on include: 1.Z-Bec. 2.Ceftriaxone. 3.Ferrous sulfate. 4.Atorvastatin. 5.Carvedilol 25 b.i.d. 6.Lasix 80 daily. 7.Docusate. 8.Calcitriol 0.25. Assessment And Plan: 1.End-stage renal disease, over volume. I am going to do dialysis today and do sequential tomorrow. Then we will place the patient back to his schedule as Thursday, Thursday, Thursday, and we will monit or the patient. 2.Hypertension. We will utilize blood pressure for more diuresis and ultrafiltration. 3.Anemia. Resume Epogen. 4.Non-ST elevation myocardial infarction with congestive heart failure. We will follow up with Cardiology. 5.Pneumonia. Continue current antibiotic. ILDA Voice ID: [id number] Report ID: [id number]
[2017-10-13] MEDS: ENOXAPARIN 80 MG/0.8 ML SQ SCH (20:27)
[2017-10-13] MEDS: ATORVASTATIN 10 MG TAB PO SCH (20:27)
[2017-10-14 08:26] VITALS: O2SAT 95
[2017-10-14 09:40] LABS: HBsAG Nonreactive (Nonreactive)
[2017-10-14] MEDS: FUROSEMIDE 40 MG TABLET PO SCH (09:53)
[2017-10-14] MEDS: CEFTRIAXONE/SWI 1gm 1 GM/10 ML SYR IV SCH (09:53)
[2017-10-14] MEDS: FERROUS SULFATE 325 MG TAB PO SCH (09:53)
[2017-10-14] MEDS: ASPIRIN EC 81 MG TAB PO SCH (09:54)
[2017-10-14] MEDS: CARVEDILOL 25 MG TAB PO SCH (09:55)
[2017-10-14] MEDS: AZITHROMYCIN IV 500 MG in NA CHLORIDE 0.9% 250 ML IVPB SCH (09:55)
[2017-10-14] MEDS: JUVEN PACKET PO SCH (09:57)
[2017-10-14] MEDS ORDERED: EPOETIN ALFA 10,000 UNIT/ML VIAL IV SCH (11:00)
--- NOTE | 2017-10-14 11:01 | CON ---
Date of Consultation: 10/12/2017 Admitted on 10/11/[address] Worrell's service. I saw the patient on 10/12/2017. Reason For Consultation: Shortness of breath, chest pain, and pneumonia. History Of Present Illness: Mr. Thomas is an 87-year-old white male. He has been a patient of ____ clinic for a few years. On 10/06/2017, Dr. Mena placed an access sheath for dialysis. He got his first dialysis on 10/09/2017. The following day he did have some chest, had some shortness of br eath came into the hospital. Chest x-ray showed possible pneumonia, bilateral effusion. He was hype rtensive and had a blood pressure of 179/80. His creatinine was 3.08. His hemoglobin was 7.8. He h ad elevated white count of 10.4 with 80% neutrophils. The troponin was 5.61. BNP was 1853. When I saw him, he was on BiPAP and he continues to appear short of breath. Dialysis is pending. Dr. Ter olsen is seeing him. Denied any fever or chills. 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 Review of Systems: Negative. Social History: Negative. Most of the history obtained is from Mrs. Thomas. Physical Examination: Vital Signs: He was in sinus rhythm. HEENT: Negative. Neck: His neck was supple without bruit, JVD, lymphadenopathy or thyromegaly. Chest: His chest reveals some crackles at both bases. Cardiac: Revealed a regular rhythm and rate with an S4 and gallop but no murmurs or rubs. Extremities: Revealed 1+ edema. Diagnostic Data: As stated above. Impression And Plan: 1.Chest pain and shortness of breath, high troponin and high BNP certainly suggestive of coronary ar marium disease and non-ST elevation VT and congestive heart failure. We will obtain an echocardiogram to rule out wall motion abnormalities to check on his ejection fraction. He has a pneumonia with a w cora count of 10.8 and left shift on antibiotics. He is very anemic and is receiving blood transfusi on. I certainly do not think this is the right time to do a heart catheterization on Mr. Thomas and I am not so sure how eager he is to do so, but we will discuss this further as he improves. I will di scuss the case with Dr. Thomas, his son, as well as Dr. Santiago. The blood pressure is better controll ed today. 2.He has a history of dyslipidemia on Zocor. We will continue present regimen for now. BERNICE/MORENA Voice ID: [id number] Report ID: [id number]
--- NOTE | 2017-10-14 12:00 | EKG ---
Test Date: 2017-10-14 Test Time: 01:05:09 Medical Receptionist Biller: RT-O MEASUREMENT RESULTS: Intervals: Rate: 63 MT: 286 QRSD: 92 QT: 454 QTc: 464 Hudson: P: 23 MT: 286 QRS: 44 T: 74 INTERPRETIVE STATEMENTS: Sinus rhythm with marked sinus arrhythmia with 1st degree AV block Anterior infarct, age undetermined ST & T wave abnormality, consider lateral ischemia Abnormal ECG Compared to ECG 10/11/2017 16:35:53 ST (T wave) deviation now present Possible ischemia now present Myocardial infarct finding still present Electronically Signed On 10-14-17 12:00:12 CDT by Roque Santiago
--- NOTE | 2017-10-14 12:05 | P.PN ---
Subjective Date of Service: 10/14/17 Chief Complaint: acute respiratory failure Patient seen and examined at bedside with RN. Chart reviewed. Patient doing well overall. No complaints to offer overnight. Review of Systems General: As per HPI Physical Examination - Vital Signs Temperature: 98.7 F Blood Pressure: 167/75 Pulse: 64 Respirations: 16 Pulse Ox (%): 100 - Physical Exam General: Alert, Oriented x3, Mild distress HEENT: Atraumatic, PERRLA, EOMI Neck: Supple, JVD distended Respiratory: Normal air movement, Crackles/rales Cardiovascular: Regular rate/rhythm, Normal S1 S2 Gastrointestinal: Normal bowel sounds, No tenderness Musculoskeletal: No tenderness Integumentary: No rashes Neurological: Normal speech, Normal tone, Normal affect Lymphatics: No axilla or inguinal lymphadenopathy - Studies Medications List Reviewed: Yes Assessment & Plan - Problems (Diagnosis) (1) Acute respiratory failure Onset Date: 10/12/17 Current Visit: Yes Status: Acute Plan: Most Likely 2/2 to volume overload -IV lasix -On HD here in the hospital -Currently on NC. -IS and repeat ted in the AM Qualifiers: Respiratory failure complication: hypoxia Qualified Code(s): J96.01 - Acute respiratory failure with hypoxia (2) ESRD on dialysis Onset Date: 10/12/17 Current Visit: Yes Status: Acute Plan: Nephrology consulted. -HD restarted here in the hospital (3) Pneumonia Onset Date: 10/12/17 Current Visit: Yes Status: Acute Plan: PNA on Xray -IV abx -Blood culture negative for now. Qualifiers: Pneumonia type: due to unspecified organism (4) Debility Onset Date: 06/22/17 Current Visit: No Status: Chronic (5) CAD (coronary artery disease) Onset Date: 06/11/17 Current Visit: No Status: Chronic Plan: With Elevated Troponin NSTEMI -cardiology consulted. -Reccs Cardiac Cath outpt once pt is more stable -Continue medical mgmt Qualifiers: Coronary Disease-Associated Artery/Lesion type: [place] artery [place] vs. transplanted heart: [place] heart Associated angina: without angina Qualified Code(s): I25.10 - Atherosclerotic heart disease of [place] coronary artery without angina pectoris (6) HTN (hypertension) Onset Date: 06/11/17 Current Visit: No Status: Chronic Qualifiers: Hypertension type: essential hypertension Qualified Code(s): I10 - Essential (primary) hypertension (7) Hyperlipidemia Onset Date: 06/11/17 Current Visit: No Status: Chronic Qualifiers: Hyperlipidemia type: mixed hyperlipidemia Qualified Code(s): E78.2 - Mixed hyperlipidemia (8) CHF (congestive heart failure) Current Visit: Yes Status: Acute Qualifiers: Heart failure type: right-sided Heart failure chronicity: acute on chronic Qualified Code(s): I50.813 - Acute on chronic right heart failure (9) Anemia in chronic kidney disease Current Visit: Yes Status: Chronic Qualifiers: Chronic kidney disease stage: on chronic dialysis Qualified Code(s): N18.6 - End stage renal disease; D63.1 - Anemia in chronic kidney disease; Z99.2 - Dependence on renal dialysis (10) Pressure ulcer Current Visit: Yes Status: Chronic Qualifiers: Pressure ulcer location: unspecified location Pressure ulcer stage: stage 2 Qualified Code(s): L89.92 - Pressure ulcer of unspecified site, stage 2
--- NOTE | 2017-10-14 14:04 | PN ---
Subjective: The patient seen on dialysis. The patient feeling better. Shortness of breath has been subsided. The patient was seen by Cardiology. No intervention currently. Physical Examination: Vital Signs: Blood pressure 167/75, pulse of 64, afebrile. The patient had ultrafiltration yesterda y of 2200. Re-going for 3 L today. Chest: Crackles on the right base. Decreased air entry on the left. Heart: S1, S2. Systolic murmur. Abdomen: Soft, nontender. Extremities: No edema. Laboratory Data: WBC 8.5, H and H 8.3/24.1, platelets 240. Sodium 141, potassium 4.6, bicarb 27, BU N 53, creatinine 3.9, calcium 9.2. Medications: Current medications the patient on its include: 1.Z-Bec. 2.Ceftriaxone. 3.Lovenox. 4.Epogen. 5.Oral iron. 6.Carvedilol 25 b.i.d. 7.Tylenol. 8.Lasix. 9.Zofran. 10.Docusate. Assessment And Plan: 1.End-stage renal disease, over volume. Currently normal volume to me. I am going to back the sandra ent to his regular schedule as Thursday, Thursday, Thursday. 2.Hypertension, controlled, not optimal given the cardiac status and I am going to start the nephrot ic range of proteinuria before we will start the patient on low dose of AMADOU inhibitor and we will fol low up the patient. 3.Non-ST elevation myocardial infarction. Follow up with Cardiology. 4.Congestive heart failure. Echocardiogram show hypokinesia with ejection fraction of 57%. We will follow up with Cardiology. Normal volume currently. 5.Left pleural effusion, stable. CHRISTOPHER/MORENA Voice ID: [id number] Report ID: [id number]
[2017-10-14] MEDS: CALCITROL 0.25 MCG CAP PO SCH (15:02)
[2017-10-14] MEDS: DOCUSATE NA/SENNA CONC 1 TAB PO PRN (15:02)
[2017-10-14 17:01] VITALS: BP 155/69; TEMP 97.4
[2017-10-15] MEDS ORDERED: LISINOPRIL 10 MG TAB PO SCH (09:00)
== END 2017-10-14 07:45 | disposition home or self-care (01) | DRG 189 ==
LOC: ER 16:07 → ERHOLD 18:07 → 2ND 19:39
PROVIDERS: ADMIT Family Medicine; ATTEND Family Medicine
PROC: 5A09357 Assistance with Respiratory Ventilation, Less than 24 Consecutive Hours, Continuous Positive Airway Pressure (ICD-10-PCS; principal; 2017-10-11)
PROC: 5A1D70Z Performance of Urinary Filtration, Intermittent, Less than 6 Hours Per Day (ICD-10-PCS; 2017-10-12)
PROC: 5A1D70Z Performance of Urinary Filtration, Intermittent, Less than 6 Hours Per Day (ICD-10-PCS; 2017-10-13)
PROC: 5A1D70Z Performance of Urinary Filtration, Intermittent, Less than 6 Hours Per Day (ICD-10-PCS; 2017-10-14)
DX: J96.01 Acute respiratory failure with hypoxia (principal); N18.6 End stage renal disease; I21.4 Non-ST elevation (NSTEMI) myocardial infarction; J18.9 Pneumonia, unspecified organism; I12.0 Hypertensive chronic kidney disease with stage 5 chronic kidney disease or end stage renal disease; D62 Acute posthemorrhagic anemia; I13.2 Hypertensive heart and chronic kidney disease with heart failure and with stage 5 chronic kidney disease, or end stage renal disease; I25.10 Atherosclerotic heart disease of native coronary artery without angina pectoris; E78.5 Hyperlipidemia, unspecified; R53.81 Other malaise; I50.9 Heart failure, unspecified; L89.92 Pressure ulcer of unspecified site, stage 2; Z99.2 Dependence on renal dialysis
CPT/HCPCS: 36415; 71045; 74230; 80048; 80053; 80076; 83880; 84145; 84484; 85025; 85610; 85730; 86704; 86706; 86803; 86850; 86900; 86901; 87040; 87340; 90935; 93005; 93306; 94660; 97163; 99285; G0257; J0456; J0696; J0885; J1650; P9016; Q4081

== ENCOUNTER 2017-10-25 21:22 | Inpatient (IN) | payer OTHER ==
--- OUTSIDE RECORDS SUMMARY | 2017-10-25 21:24 | XMS REPORT | Clinical Summary ---
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 ORAL) furosemide (LASIX) Take 80 [...] EXTREMITY MD Casey AV FISTULA CREATION after 10/24/2016 Social History Tobacco Use Types Packs/Day Years Used Date Never Smoker Smokeless Tobacco: Never Used Alcohol Use Drinks/Week oz/Week Comments No Sex Assigned at Date Recorded Not on file Last Filed Vital Signs Vital Sign Reading Time Taken Blood Pressure 168/72 08/12/2017 6:17 PM OCCUPATIONAL THERAPIST ASSISTANT Pulse 64 08/12/2017 6:17 PM OCCUPATIONAL THERAPIST ASSISTANT Temperature 37.1 C (98.7 F) 08/12/2017 6:17 PM OCCUPATIONAL THERAPIST ASSISTANT Respiratory Rate 16 08/12/2017 6:17 PM OCCUPATIONAL THERAPIST ASSISTANT Oxygen Saturation 96% 08/12/2017 6:17 PM OCCUPATIONAL THERAPIST ASSISTANT Inhaled Oxygen Concentration - - Weight 81.5 [...] Procedure Name Priority Date/Time Associated Diagnosis Comments IA AN ELECTIVE Routine 08/12/2017 3:10 PM SUPRAGLOTTIC AIRWAY OCCUPATIONAL THERAPIST ASSISTANT Procedure Note - Wilmer Contreras MD - 08/12/2017 3:10 PM OCCUPATIONAL THERAPIST ASSISTANT Airway Performed by: DARIA HUERTA Authorized by: DARIA HUERTA Location: OR Urgency: Elective Difficult Airway: No Anesthesiologist: DARIA HUERTA Performed by: anesthesiologist Preoxygenated with 100% O2: Yes C-spine Precautions Maintained Throughout: Yes Mask Ventilation: Easy mask Final Airway Type: Supraglottic airway Final LMA: Classic LMA Size: 4 Number of Attempts at Approach: 1 Left UPPER EXTREMITY AV FISTULA 08/12/2017 2:45 PM OCCUPATIONAL THERAPIST ASSISTANT End stage renal disease CREATION Case Notes C-ARM Special Needs C-ARM after 10/24/2016 Results Potassium, syringe (08/12/2017 11:45 AM) Component Value Ref Range Potassium, syringe 4.7 3.5 - 5.0 mEq/L Specimen Performing Laboratory Blood [facility] DEPARTMENT OF PATHOLOGY AND GENOMIC MEDICINE [address] [place] [phone] Hemoglobin, syringe (08/12/2017 11:45 AM) Component Value Ref Range Hemoglobin, syringe 9.3 (L) 14.0 - 18.0 g/dL Specimen Performing Laboratory Blood [facility] DEPARTMENT OF PATHOLOGY AND GENOMIC MEDICINE [address] [place] [id number] Glucose level, syringe (08/12/2017 11:45 AM) Component Value Ref Range Glucose, syringe 96 65 - 99 mg/dL Specimen Performing Laboratory Blood [facility] DEPARTMENT OF PATHOLOGY AND GENOMIC MEDICINE [address] [place] [id number] after 10/24/2016 Insurance Payer Benefit Plan / Group Subscriber ID Type Phone Address MEDICARE MEDICARE PART A AND B xxxxxxxxxx Medicare [place], [place] AETNA AETNA PPO OPEN CHOICE xxxxxxxxx PPO [employer] Self 1930 Home: [address] Liability [phone] [address] [place] [address]
[2017-10-25 21:46] LABS: Absolute Lymphocytes (CBC) 0.9 K/uL (0.7-4.9); Absolute Monocytes 0.6 K/uL (0.1-1.3); Absolute Neutrophil 5.8 K/uL (1.8-8.0); Eosinophils % 4.9 % (0-4.4); Hematocrit 26.7 % (39.6-49.0); Lymphocytes % 11.1 % (15.3-44.8); MCH 30.5 pg (27.0-35.0); MCV 91.8 fL (80-100); MPV 6.8 fL (7.6-11.3); Monocytes % 8.3 % (3.3-12.3); RBC Red Blood Cell Count 2.91 M/uL (4.33-5.43)
[2017-10-25 21:58] LABS: Protime INR 1.26
[2017-10-25 22:01] LABS: Bicarbonate 30 mEq/L (21-31); Glucose Level 135 mg/dL (65-120); Lipase 31 U/L (22-51); Sodium Level 138 mEq/L (135-145)
[2017-10-25 22:08] LABS: ALT/SGPT 13 IU/L (10-60); AST/SGOT 18 IU/L (10-42); Albumin 2.8 g/dL (3.2-5.5); Alkaline Phosphatase 69 IU/L (42-121); BUN Blood Urea Nitrogen 54 mg/dL (6-20); Bilirubin Direct < 0.1 mg/dL (0-0.2); Bilirubin Total 0.2 mg/dL (0.3-1.2); Creatine Phosphokinase 21 IU/L (22-269); Protein, Total 6.7 g/dL (6.0-8.3)
[2017-10-25 22:10] LABS: CKMB Creatine Kinase MB 1.9 ng/ml (0.3-4.0)
[2017-10-25] MEDS ORDERED: ALBUTEROL 2.5 MG/3 ML NEB SOL ONE (22:14)
[2017-10-25] MEDS ORDERED: IPRATROPIUM BROM 0.5MG/2.5ML ONE (22:15)
--- NOTE | 2017-10-25 23:31 | ER ---
Nurse's Notes [facility] Name: Evans Thomas Age: 87 yrs Sex: Male : 1930 Arrival Date: 10/25/2017 Time: 21:29 Bed 5 Private MD: Evans Thomas E Diagnosis: Shortness of breath;Pulmonary edema Presentation: 10/25 21:30 Presenting complaint: EMS states: that pt is having difficulty breathing. Was fc discharged recently from hospital for pneumonia. Sats 96% on O2 at 2 liters per nasal cannula. Pt does have nonproductive cough. Transition of care: patient was not received from another setting of care. Onset of symptoms was October 25, 2017. Initial Sepsis Screen: Does the patient meet any 2 criteria? RR > 20 per min. Yes Does the patient have a suspected source of infection? Yes: Productive cough/pneumonia. Care prior to arrival: Medication(s) given: Albuterol Neb x 1, Atrovent Neb x 1, IV initiated. 20 GA, in the right antecubital area. 21:30 Method Of Arrival: EMS: [facility] 21:30 Acuity: DWAIN 3 Triage Assessment: 22:28 General: Appears uncomfortable, ill, Behavior is calm, cooperative, appropriate for bs1 age. Respiratory: Onset: The symptoms/episode began/occurred gradually, the patient has moderate shortness of breath. Respiratory: Reports shortness of breath at rest on exertion Airway is patent Trachea midline Respiratory effort is even, unlabored, Respiratory pattern is regular, symmetrical. Historical: - Allergies: 21:41 Iodine; fc 21:41 Doxycycline; fc - Home Meds: 21:41 Zocor 20 mg Oral tab 1 tab once daily [Active]; Men's Multivitamin Gummies 200 mcg oral fc chew daily [Active]; lisinopril 10 mg Oral tab 1 tab once daily [Active]; furosemide 80 mg Oral tab 1 tab once daily [Active]; ferrous sulfate 325 mg (65 mg iron) Oral tab daily [Active]; Senokot S 2 tabs Oral bedtime prn [Active]; Vitamin D Oral 1,000 unit daily [Active]; carvedilol 25 mg oral tab 1 tab 2 times per day [Active]; Tums 200 mg calcium (500 mg) Oral chew with every meal [Active]; calcitriol 0.25 mcg oral cap 1 cap q 48 hrs [Active]; benzonatate 100 mg oral cap 1 cap q6hr prn [Active]; aspirin 81 mg Oral TbEC 1 tab once daily [Active]; - PMHx: 21:41 ESRD; CHF; Hypertension; Anemia; Pneumonia; Myocardial infarction; High Cholesterol; fc colon cancer; CAD; Angina; - PSHx: 21:41 Heart stents; Bowel resection; right chest wall pascual; left forearm fistula; fc - Immunization history:: Last tetanus immunization: unknown. - Social history:: Smoking status: Patient/guardian denies using tobacco, Patient/guardian denies using alcohol. Screenin:30 Abuse screen: Denies threats or abuse. Nutritional screening: No deficits noted. fc Tuberculosis screening: No symptoms or risk factors identified. 22:28 Fall Risk No fall in past 12 months (0 pts). No secondary diagnosis (0 pts). IV access bs1 (20 points). Ambulatory Aid- Crutches/Cane/Walker (15 pts). Gait- Weak (10 pts.). Mental Status- Oriented to own ability (0 pts). Total Ramirez Fall Scale indicates Low Risk Score (25-44 pts). Assessment: 21:35 General: Appears uncomfortable, ill, Behavior is calm, cooperative, appropriate for bs1 age. Pain: Denies pain. Neuro: Level of Consciousness is awake, alert, obeys commands, Oriented to person, place, time, situation, Appropriate for age Tool Distributor are equal bilaterally Weakness Gait is unsteady, Speech is normal, Facial symmetry appears normal, Pupils are PERRLA. Cardiovascular: Reports shortness of breath, Denies chest pain, palpitations, Heart tones S1 S2 present Capillary refill < 3 seconds Patient's skin is warm and dry. Pulses are all present. Rhythm is regular. Respiratory: Airway is patent Trachea midline Respiratory effort is. Respiratory: Respiratory effort is even, unlabored, Respiratory pattern is regular, Breath sounds with crackles bilaterally. Breath sounds are diminished bilaterally. Respiratory: Reports shortness of breath at rest on exertion. GI: Abdomen is round Bowel sounds present X 4 quads. Abd is non tender X 4 quads. : Reports having a hard time urinating, doesn't urinate as much. EENT: No deficits noted. No signs and/or symptoms were reported regarding the EENT system. Derm: Skin has skin tears on noted to left forearm Skin is pale, Skin temperature is warm Bruising that is dark purple, on right arm and left arm Patients dialysis access noted to right subclavian, fistula noted to left forearm, thrill felt. Musculoskeletal: Circulation, motion, and sensation intact. Capillary refill < 3 seconds, Range of motion: intact in all extremities. 22:45 Reassessment: After breathing tx given patient was on room air, oxygen saturation bs1 dropped to 88%, when patient arrived patient was 97-100% on room air, applied 2L due to SOB on admission. 2L NC applied again at 2245 due to low oxygen saturation. 23:08 Reassessment: Patient appears in no apparent distress at this time. No changes from ak1 previously documented assessment. Patient is alert, oriented x 3, equal unlabored respirations, skin warm/dry/pink. pt placed on 2.5L NC after neb treatment. 10/26 00:22 Reassessment: Patient appears in no apparent distress at this time. Patient and/or bs1 family updated on plan of care and expected duration. Pain level reassessed. Patient is alert, oriented x 3, equal unlabored respirations, skin warm/dry/pink. Vital Signs: 10/25 21:30 BP 139 / 73; Pulse 84; Resp 22; Temp 98.8(TE); Pulse Ox 100% on 2 lpm NC; Weight 78.02 fc kg (R); Height 5 ft. 10 in. (177.80 cm); Pain 0/10; 23:10 BP 174 / 67; Pulse 75; Resp 25; Pulse Ox 95% on 2.5 lpm NC; ak1 23:45 BP 168 / 64 RA Supine (auto/); Pulse 74; Resp 20 S; Temp 98.3(O); Pulse Ox 97% on 2 lpm bs1 NC; Pain 0/10; 10/26 00:21 BP 164 / 87 RA Sitting (auto/reg); Pulse 75 RA; Resp 20 S; Pulse Ox 98% on 2 lpm NC; bs1 10/25 21:30 Body Mass Index 24.68 (78.02 kg, 177.80 cm) ED Course: 10/25 21:29 Patient arrived in ED. 21:30 Evans Thomas MD is Private Physician. 21:30 Arm band placed on Patient placed in an exam room, on a stretcher. fc 21:30 Patient has correct armband on for positive identification. Placed in gown. Bed in low fc position. Call light in reach. Side rails up X2. clinical research monitor on. Pulse ox on. NIBP on. 21:30 No provider procedures requiring assistance completed. Maintain EMS IV. Dressing fc intact. Good blood return noted. Site clean \T\ dry. Gauge \T\ site: 20 gauge to right a/c. 21:32 Triage completed. fc 21:32 Bob Estrella PA is PHCP. cp 21:32 Abhinav Oates MD is Attending Physician. cp 21:41 Ml Shipley, ROBERT is Primary Nurse. ak1 22:19 X-ray completed. Portable x-ray completed in exam room. Patient tolerated procedure kp1 well. 22:21 Chest Single View XRAY In Process Unspecified. EDMS 23:30 Carmen Lima MD is Hospitalizing Provider. 10/26 00:45 Patient admitted, IV remains in place. intact. bs1 Administered Medications: 10/25 22:20 Drug: Albuterol - atroVENT (3:1) (2.5 mg - 0.5 mg) 3 ml Route: Nebulizer; bs1 10/26 00:01 Follow up: Response: No adverse reaction bs1 10/25 23:56 Drug: Lasix 80 mg Route: IVP; Site: right antecubital; bs1 10/26 00:01 Follow up: Response: No adverse reaction bs1 Point of Care Testing: Blood Glucose: 10/25 21:51 Blood Glucose: 147 mg/dL; ak1 Ranges: Outcome: 23:30 Decision to Hospitalize by Provider. 10/26 00:21 Condition: stable bs1 00:45 Admitted to Med/surg accompanied by tech, via stretcher, room 204, with chart, Report bs1 called to BHARTI Moran 00:45 Instructed on the need for admit. 00:58 Patient left the ED. bs1 Signatures: Dispatcher [employer] EDBrielle Benavidez RN RN Ml Shipley, RN RN ak1 Bob Estrella PA PA Dianna Torres 1 Jessica Lutz RN RN bs1 Corrections: (The following items were deleted from the chart) 10/25 23:59 21:35 Derm: Skin has skin tears on noted to left forearm Skin is pale, Skin temperature bs1 is warm Bruising that is dark purple, on right arm and left arm bs1
--- NOTE | 2017-10-25 23:31 | EDPHYS ---
Physician Documentation [facility] Name: Evans Thomas Age: 87 yrs Sex: Male : 1930 Arrival Date: 10/25/2017 Time: 21:29 Bed 5 Private MD: Evans Thomas E ED Physician Abhinav Oates HPI: 10/25 21:40 This 87 yrs old Male presents to ER via EMS with complaints of Shortness Of cp Breath. 21:40 The patient has shortness of breath at rest. cp 21:40 Onset: The symptoms/episode began/occurred gradually. Duration: The symptoms are cp continuous, and are steadily getting worse. 21:40 Associated signs and symptoms: Pertinent positives: non-productive cough, Pertinent cp negatives: chest pain, diaphoresis, fever, hemoptysis, vomiting. Severity of symptoms: in the emergency department the symptoms are unchanged despite home interventions. Historical: - Allergies: 21:41 Iodine; fc 21:41 Doxycycline; fc - Home Meds: 21:41 Zocor 20 mg Oral tab 1 tab once daily [Active]; Men's Multivitamin Gummies 200 mcg oral fc chew daily [Active]; lisinopril 10 mg Oral tab 1 tab once daily [Active]; furosemide 80 mg Oral tab 1 tab once daily [Active]; ferrous sulfate 325 mg (65 mg iron) Oral tab daily [Active]; Senokot S 2 tabs Oral bedtime prn [Active]; Vitamin D Oral 1,000 unit daily [Active]; carvedilol 25 mg oral tab 1 tab 2 times per day [Active]; Tums 200 mg calcium (500 mg) Oral chew with every meal [Active]; calcitriol 0.25 mcg oral cap 1 cap q 48 hrs [Active]; benzonatate 100 mg oral cap 1 cap q6hr prn [Active]; aspirin 81 mg Oral TbEC 1 tab once daily [Active]; - PMHx: 21:41 ESRD; CHF; Hypertension; Anemia; Pneumonia; Myocardial infarction; High Cholesterol; fc colon cancer; CAD; Angina; - PSHx: 21:41 Heart stents; Bowel resection; right chest wall pascual; left forearm fistula; fc - Immunization history:: Last tetanus immunization: unknown. - Social history:: Smoking status: Patient/guardian denies using tobacco, Patient/guardian denies using alcohol. ROS: 21:45 Constitutional: Negative for body aches, chills, fever, poor PO intake. cp 21:45 Eyes: Negative for injury, pain, redness, and discharge. cp 21:45 ENT: Negative for drainage from ear(s), ear pain, sore throat, difficulty swallowing, difficulty handling secretions. 21:45 Neck: Negative for pain with movement, pain at rest, stiffness, swollen nodes, tenderness. 21:45 Cardiovascular: Negative for chest pain, edema, palpitations. 21:45 Respiratory: Positive for cough, with no reported sputum, shortness of breath, at rest. Negative for wheezing. 21:45 Abdomen/GI: Negative for abdominal pain, nausea, vomiting, and diarrhea, constipation, black/tarry stool, rectal bleeding. 21:45 Back: Negative for radiated pain. 21:45 : Negative for urinary symptoms. 21:45 Skin: Negative for cellulitis, rash. 21:45 Neuro: Negative for altered mental status, dizziness, headache, syncope, near syncope, weakness. 21:45 All other systems are negative. Exam: 21:47 Constitutional: The patient appears alert, awake, non-diaphoretic, non-toxic, well cp developed, well nourished, in obvious distress, mildly distressed. 21:47 Head/Face: Normocephalic, atraumatic. cp 21:47 Eyes: Periorbital structures: appear normal, Pupils: equal, round, and reactive to light and accomodation, Extraocular movements: intact throughout, Conjunctiva: normal, no exudate, no injection, Sclera: no appreciated abnormality, Lids and lashes: appear normal, bilaterally. 21:47 ENT: External ear(s): are unremarkable, Ear canal(s): are normal, clear, TM's: bulging, is not appreciated, bilaterally, dullness, bilaterally, erythema, is not appreciated, bilaterally, Nose: is normal, Mouth: Lips: moist, Oral mucosa: moist, Posterior pharynx: is normal, airway is patent, no erythema, no exudate. 21:47 Neck: ROM/movement: is normal, is supple, without pain, no range of motions limitations, no meningismus, no nuchal rigidity, Lymph nodes: no appreciated lymphadenopathy. 21:47 Chest/axilla: Inspection: normal, Palpation: is normal, no crepitus, no tenderness. 21:47 Cardiovascular: Rate: normal, Rhythm: regular, Pulses: Pulses are 2+ in right radial artery and left radial artery. Edema: is not appreciated, JVD: is not appreciated. 21:47 Respiratory: mild respiratory distress is noted, Respirations: labored breathing, that is mild, intercostal retractions, are absent, tachypnea, that is mild, Breath sounds: decreased breath sounds, that are moderate, throughout. 21:47 Abdomen/GI: Inspection: abdomen appears normal, Bowel sounds: active, all quadrants, Palpation: abdomen is soft and non-tender, in all quadrants, rebound tenderness, is not appreciated, voluntary guarding, is not appreciated, involuntary guarding, is not appreciated. 21:47 Back: pain, is absent, ROM is normal. Vital Signs: 21:30 BP 139 / 73; Pulse 84; Resp 22; Temp 98.8(TE); Pulse Ox 100% on 2 lpm NC; Weight 78.02 fc kg (R); Height 5 ft. 10 in. (177.80 cm); Pain 0/10; 23:10 BP 174 / 67; Pulse 75; Resp 25; Pulse Ox 95% on 2.5 lpm NC; ak1 23:45 BP 168 / 64 RA Supine (auto/); Pulse 74; Resp 20 S; Temp 98.3(O); Pulse Ox 97% on 2 lpm bs1 NC; Pain 0/10; 10/26 00:21 BP 164 / 87 RA Sitting (auto/reg); Pulse 75 RA; Resp 20 S; Pulse Ox 98% on 2 lpm NC; bs1 10/25 21:30 Body Mass Index 24.68 (78.02 kg, 177.80 cm) fc MDM: 10/25 21:46 Patient medically screened. cp 22:00 Differential diagnosis: CHF exacerbation, Chronic Obstructive Pulmonary Disease cp Myocardial Infarction pneumonia, Pneumothorax pulmonary edema, Pulmonary Embolism Sepsis Unstable Angina. 23:00 Physician consultation: Carmen Lima MD was contacted at 23:00, regarding admission, cp to the telemetry unit. and will see patient in ED, shortly. 23:25 Data reviewed: vital signs, nurses notes, lab test result(s), EKG, radiologic studies, cp plain films. 23:25 Antibiotic administration: Not indicated, the patient does not have an appreciated cp infiltrate. Test interpretation: by ED physician or midlevel provider: ECG, plain radiologic studies. 23:30 Physician consultation: Reymundo Marie MD was called at 23:25, was contacted at 23:25, cp regarding consult, patient's condition, arrangement for dialysis tomorrow. 10/25 21:34 Order name: Urine Microscopic Only cp 10/25 21:34 Order name: Basic Metabolic Panel; Complete Time: 22:37 cp 10/25 22:37 Interpretation: Normal except: CL 100; GLUC 135; BUN 54; CRE 4.43; GFR 13. cp 10/25 21:34 Order name: Blood Culture Adult (2) cp 10/25 21:35 Order name: BNP; Complete Time: 22:37 cp 10/25 22:37 Interpretation: Abnormal: BNP 2496. cp 10/25 21:35 Order name: CBC with Diff; Complete Time: 21:54 cp 10/25 22:38 Interpretation: Normal except: RBC 2.91; HGB 8.9; HCT 26.7; PLT 325; MPV 6.8; CATHERINE% cp 74.7; LYM% 11.1; EOSINOPHIL % 4.9. 10/25 21:35 Order name: Ckmb; Complete Time: 22:37 cp 10/25 21:35 Order name: CPK; Complete Time: 22:37 cp 10/25 22:49 Interpretation: Abnormal: CPK 21. cp 10/25 21:35 Order name: Lactate; Complete Time: 22:37 cp 10/25 21:35 Order name: LFT's; Complete Time: 22:37 cp 10/25 22:37 Interpretation: Normal except: BILIT 0.2; ALB 2.8; GLOB 3.9; A/G 0.7. cp 10/25 21:35 Order name: Lipase; Complete Time: 22:37 cp 10/25 21:35 Order name: Procalcitonin; Complete Time: 22:37 cp 10/25 21:35 Order name: Protime (+inr); Complete Time: 22:37 cp 20 22:38 Interpretation: PT 14.9. cp 10/25 21:35 Order name: Ptt, Activated; Complete Time: 22:37 cp 10/25 21:35 Order name: Troponin (emerg Dept Use Only); Complete Time: 22:37 cp 10/25 22:38 Interpretation: Abnormal: TROPED 0.04. cp 10/25 21:35 Order name: Chest Single View XRAY cp 10/25 21:35 Order name: Accucheck; Complete Time: 21:50 cp 10/25 21:35 Order name: Cardiac monitoring; Complete Time: 21:42 cp 10/25 21:35 Order name: EKG - Nurse/Tech; Complete Time: 22:12 cp 10/25 21:35 Order name: IV Saline Lock - Large Bore; Complete Time: 21:42 cp 10/25 21:35 Order name: Labs collected and sent; Complete Time: 21:42 cp 10/25 21:35 Order name: O2 Per Protocol; Complete Time: 21:42 cp 10/25 21:35 Order name: O2 Sat Monitoring; Complete Time: 21:42 cp 10/25 21:54 Order name: Influenza Screen (a \T\ B); Complete Time: 22:37 cp Administered Medications: 22:20 Drug: Albuterol - atroVENT (3:1) (2.5 mg - 0.5 mg) 3 ml Route: Nebulizer; bs1 10/26 00:01 Follow up: Response: No adverse reaction bs1 10/25 23:56 Drug: Lasix 80 mg Route: IVP; Site: right antecubital; bs1 10/26 00:01 Follow up: Response: No adverse reaction bs1 Point of Care Testing: Blood Glucose: 10/25 21:51 Blood Glucose: 147 mg/dL; ak1 Ranges: Critical Glucose Levels:Adult <50 mg/dl or >400 mg/dl <40 mg/dl or >180 mg/dl Disposition: 10/26 06:24 Co-signature as Attending Physician, Abhinav Oates MD. pkjerson Disposition: 10/25/17 23:30 Hospitalization ordered by Carmen Lima for Observation. Preliminary diagnosis are Shortness of breath, Pulmonary edema. - Bed requested for Telemetry/MedSurg (observation). - Status is Observation. bs1 - Condition is Stable. - Problem is an acute exacerbation. - Symptoms have improved. UTI on Admission? No Signatures: Dispatcher [employer] EDAbhinav Garcia MD MD pkl Chretien, Felicia, RN RN fc Page, Corey, PA PA cp Salazar, Brittany, RN RN bs1 Corrections: (The following items were deleted from the chart) 10/25 23:47 23:30 Hospitalization Ordered by Carmen Lima MD for Observation. Preliminary cp diagnosis is Shortness of breath. Bed requested for Telemetry/MedSurg (observation). Status is Observation. Condition is Stable. Problem is an acute exacerbation. Symptoms have improved. UTI on Admission? No. cp 10/26 00:05 10/25 23:47 10/25/2017 23:30 Hospitalization Ordered by Carmen Lima MD for fc Observation. Preliminary diagnosis is Shortness of breath; Pulmonary edema. Bed requested for Telemetry/MedSurg (observation). Status is Observation. Condition is Stable. Problem is an acute exacerbation. Symptoms have improved. UTI on Admission? No. cp 10/26 00:58 00:05 10/25/2017 23:30 Hospitalization Ordered by Carmen Lima MD for Observation. bs1 Preliminary diagnosis is Shortness of breath; Pulmonary edema. Bed requested for Telemetry/MedSurg (observation). Status is Observation. Condition is Stable. Problem is an acute exacerbation. Symptoms have improved. UTI on Admission? No. fc
--- NOTE | 2017-10-25 23:45 | P.HP ---
Certification for Inpatient Patient admitted to: Observation With expected LOS: <2 Midnights Practitioner: I am a practitioner with admitting privileges, knowledge of patient current condition, hospital course, and medical plan of care. Services: Services provided to patient in accordance with Admission requirements found in Title 42 Section 412.3 of the Code of Federal Regulations Patient History Date of Service: 10/25/17 Reason for admission: acute respiratory failure History of Present Illness: Mr Thomas is an 87 years old male with history of HTN, CAD, ESRD on HD who was recently admitted to the hospital due to pneumonia. After discharge home he was doing well, however he started with SOB associated with productive cough with whitish secretion. The cough is not new but is more profuse now. Last time he had HD was 2 days ago. No history of fever or chills. No chest pain either. At arrival to ED he was dyspneic, with O2 sat about 96% on 2L NC. Lab work remarkable for normal WBC count, elevated bnp, CXR similar to previous one during his last admission, however, awaiting radiology report. Allergies doxycycline Allergy (Verified 10/11/17 20:32) Itching/Hives/Rash iodine [Iodine] Allergy (Verified 06/18/17 20:09) Anaphylaxis Home Medications: Aspirin [Aspirin EC 81 MG] 81 mg PO DAILY 10/11/17 Benzonatate [Tessalon Perle*] 100 mg PO Q6H PRN 10/11/17 Calcitrol [Rocaltrol*] 0.25 mcg PO Q48H 10/11/17 Calcium Carbonate [Tums] 1 tab PO AC 10/11/17 Carvedilol [Coreg*] 25 mg PO BID 10/11/17 Cholecalciferol (Vitamin D3) [Vitamin D3] 1,000 units PO DAILY 10/11/17 Docusate/Senna [Senokot-S*] 2 tab PO BEDTIME PRN 10/11/17 Ferrous Sulfate [Ferrous Sulfate*] 325 mg PO DAILY 10/11/17 Furosemide [Lasix*] 80 mg PO DAILY 10/11/17 Multivit-Minerals/Folic Acid [Men's Multivitamin Gummies] 1 tab PO DAILY Simvastatin [Zocor] 20 mg PO DAILY 10/11/17 Vit A/Vit C/Vit E/Zinc/Copper [Preservision Areds Softgel] 1 cap PO BID Zinc Oxide [Zinc Oxide 20%*] 1 appl TOP BID PRN 10/11/17 Lisinopril [Prinivil*] 10 mg PO DAILY #30 tab 10/14/17 - Past Medical/Surgical History Diabetic: No -: Angina -: CAD -: HTN -: Hylerlipidemia -: Colon Ca -: CKD Stage 3 -: skin Ca- squamous cell-left ear, face & right hand -: dyspnea -: nephrotic range proteinuria -: renal anasarca -: part of colon removed(2007) -: removal of skin Ca from left ear, face & right hand(different times) -: right shoulder surgery - Family History Family History: Reviewed- Non-Contributory - Social History Alcohol use: No CD- Drugs: No Caffeine use: No Place of Residence: Home Review of Systems 10-point ROS is otherwise unremarkable Physical Examination - Physical Exam General: Alert, In no apparent distress HEENT: Atraumatic, PERRLA, Mucous membr. moist/pink, EOMI, Sclerae nonicteric Neck: Supple, 2+ carotid pulse no bruit, No LAD, Without JVD or thyroid abnormality Respiratory: Diminished, Expiratory wheezes, Rhonchi/gurgles Cardiovascular: Regular rate/rhythm, Normal S1 S2 Gastrointestinal: Normal bowel sounds, No tenderness Musculoskeletal: No tenderness Integumentary: No rashes Neurological: Normal speech, Normal strength at 5/5 x4 extr, Normal tone, Normal affect Lymphatics: No axilla or inguinal lymphadenopathy - Studies Laboratory Data (last 24 hrs) 10/25/17 21:35: PT 14.9 H, INR 1.26, APTT 32.1 10/25/17 21:35: WBC 7.8, Hgb 8.9 L, Hct 26.7 L, Plt Count 325 D 10/25/17 21:35: B-Natriuretic Peptide 2496 H 10/25/17 21:35: Sodium 138, Potassium 4.0, BUN 54 H, Creatinine 4.43 H, Glucose 135 H, Total Bilirubin 0.2 L, AST 18, ALT 13, Alkaline Phosphatase 69, Lipase 31 Microbiology Data (last 24 hrs): 10/25/17 22:18 Nasopharnyx Influenza Type A Antigen Screen - Final 10/25/17 22:18 Nasopharnyx Influenza Type B Antigen Screen - Final Assessment and Plan - Problems (Diagnosis) (1) Acute respiratory failure Onset Date: 10/12/17 Current Visit: No Status: Acute Qualifiers: Respiratory failure complication: hypoxia Qualified Code(s): J96.01 - Acute respiratory failure with hypoxia (2) CHF (congestive heart failure) Current Visit: No Status: Acute Qualifiers: Heart failure type: right-sided Heart failure chronicity: acute on chronic Qualified Code(s): I50.813 - Acute on chronic right heart failure (3) ESRD on dialysis Onset Date: 10/12/17 Current Visit: No Status: Acute (4) Anemia in chronic kidney disease Current Visit: No Status: Chronic Qualifiers: Chronic kidney disease stage: on chronic dialysis Qualified Code(s): N18.6 - End stage renal disease; D63.1 - Anemia in chronic kidney disease; Z99.2 - Dependence on renal dialysis (5) CAD (coronary artery disease) Onset Date: 06/11/17 Current Visit: No Status: Chronic Qualifiers: Coronary Disease-Associated Artery/Lesion type: [place] artery [place] vs. transplanted heart: [place] heart Associated angina: without angina Qualified Code(s): I25.10 - Atherosclerotic heart disease of [place] coronary artery without angina pectoris (6) HTN (hypertension) Onset Date: 06/11/17 Current Visit: No Status: Chronic Qualifiers: Hypertension type: essential hypertension Qualified Code(s): I10 - Essential (primary) hypertension - Plan The patient will be admitted to the hospital due to acute respiratory failure. Normal WBC count, no fever, CXR bilateral infiltrate similar to previous one in the last admission. Will resume his home medication once verified, consult Dr Marie to order HD. - Advance Directives Does patient have a Living Will: Yes Does patient have a Durable POA for Healthcare: Yes - Code Status/Comfort Care Code Status Assessed: Yes Code Status: Full Code
[2017-10-25] MEDS ORDERED: FUROSEMIDE 40 MG/4 ML VIAL ONE (23:50)
[2017-10-26] MEDS ORDERED: ACETAMINOPHEN 500 MG TAB PO PRN (00:53)
[2017-10-26] MEDS ORDERED: ONDANSETRON 4 MG/2 ML VIAL IV PRN (00:53)
[2017-10-26 02:56] LABS: Urine Appearance CLEAR; Urine Bilirubin NEGATIVE (NEG); Urine Blood NEGATIVE (NEG); Urine Color YELLOW; Urine Glucose NEGATIVE (NEG); Urine Protein 3+ (NEG); Urine Urobilinogen 0.2 mg/dL (0.2-1.0)
[2017-10-26 03:00] LABS: Urine Microscopic Reflex ORDER UMIC
[2017-10-26 03:27] LABS: Urine Amorphous Sediment 1+ /HPF (NONE SEEN); Urine Bacteria <20 /HPF (NONE SEEN); Urine Coarse Granular Casts 0-5 /LPF (NONE SEEN); Urine Culture Reflex Order REFLEXED; Urine RBC <5 /HPF (NONE SEEN)
[2017-10-26 04:53] LABS: Absolute Lymphocytes (CBC) 1.2 K/uL (0.7-4.9); Absolute Monocytes 0.8 K/uL (0.1-1.3); Absolute Neutrophil 5.3 K/uL (1.8-8.0); Basophils % 0.3 % (0-1.3); Eosinophils % 3.9 % (0-4.4); Hematocrit 25.5 % (39.6-49.0); Lymphocytes % 15.7 % (15.3-44.8); MCV 91.9 fL (80-100); MPV 6.8 fL (7.6-11.3); Monocytes % 10.9 % (3.3-12.3); RBC Red Blood Cell Count 2.77 M/uL (4.33-5.43)
--- NOTE | 2017-10-26 07:59 | EKG ---
Test Date: 2017-10-25 Test Time: 21:55:40 Mass Spectrometry Manager: JOSEPH MEASUREMENT RESULTS: Intervals: Rate: 75 VA: 296 QRSD: 86 QT: 418 QTc: 466 [place]: P: 66 VA: 296 QRS: 40 T: 23 INTERPRETIVE STATEMENTS: Sinus rhythm with 1st degree AV block Septal infarct, age undetermined T wave abnormality, consider anterior ischemia Abnormal ECG Compared to ECG 10/14/2017 01:05:09 T-wave abnormality now present Sinus arrhythmia no longer present ST (T wave) deviation no longer present Myocardial infarct finding still present Possible ischemia still present Electronically Signed On 10-26-17 07:58:38 CDT by Roque Santiago
--- NOTE | 2017-10-26 09:05 | RAD REPORT ---
EXAM DESCRIPTION: [place] Single View10/25/2017 10:21 pm CLINICAL HISTORY: cough COMPARISON: October 11 FINDINGS: Moderate left and small to moderate right pleural effusions are suspected. Bibasilar lung opacities are seen. The heart is enlarged. Central venous catheter remains in place IMPRESSION: By basilar lung opacities may represent pneumonia or pulmonary edema Bilateral pleural effusions
[2017-10-26] MEDS ORDERED: DOCUSATE NA/SENNA CONC 1 TAB PO PRN (16:29)
[2017-10-26] MEDS: CALCIUM CARBONATE CHEW 500MG TAB PO SCH (16:30)
--- NOTE | 2017-10-26 16:35 | P.PN ---
Subjective Date of Service: 10/26/17 Chief Complaint: acute respiratory failure Subjective: Improving (Patient improved. Patient off BiPAP. Patient to get dialysis.) Physical Examination - Vital Signs Temperature: 99.0 F Blood Pressure: 190/87 Pulse: 71 Respirations: 18 Pulse Ox (%): 98 - Physical Exam General: Alert, In no apparent distress, Cooperative HEENT: Atraumatic Neck: Supple Respiratory: Diminished (Bilateral) Cardiovascular: Normal pulses, Regular rate/rhythm Gastrointestinal: Normal bowel sounds, Soft and benign, Non-distended, No masses , No rebound, No guarding Musculoskeletal: No tenderness, No warmth Integumentary: Tenderness/swelling (Mild swelling bilateral to the lower extremities) Neurological: Normal speech, Normal strength at 5/5 x4 extr - Studies Laboratory Data (last 24 hrs) 10/25/17 21:35: PT 14.9 H, INR 1.26, APTT 32.1 10/25/17 21:35: WBC 7.8, Hgb 8.9 L, Hct 26.7 L, Plt Count 325 D 10/25/17 21:35: B-Natriuretic Peptide 2496 H 10/25/17 21:35: Sodium 138, Potassium 4.0, BUN 54 H, Creatinine 4.43 H, Glucose 135 H, Total Bilirubin 0.2 L, AST 18, ALT 13, Alkaline Phosphatase 69, Lipase 31 Microbiology Data (last 24 hrs): 10/25/17 22:18 Nasopharnyx Influenza Type A Antigen Screen - Final 10/25/17 22:18 Nasopharnyx Influenza Type B Antigen Screen - Final Medications List Reviewed: Yes Assessment & Plan - Problems (Diagnosis) (1) Acute respiratory failure Onset Date: 10/12/17 Current Visit: Yes Status: Acute Plan: Patient off BiPAP. Transition an wean off oxygen. Patient to get dialysis. Respiratory distress likely related to acute on chronic CHF with noted end- stage renal disease. Will teach on 1500 cc per day fluid restriction and low- salt diet. Will monitor closely. Will continue with Lasix. Will get physical therapy to ambulate tomorrow. Will need to assess home needs. Qualifiers: Respiratory failure complication: hypoxia Qualified Code(s): J96.01 - Acute respiratory failure with hypoxia (2) CHF (congestive heart failure) Onset Date: 10/26/17 Current Visit: Yes Status: Acute Plan: Continue with diuresis. Patient received dialysis. Will teach on fluid restriction and low-salt diet. Qualifiers: Heart failure type: diastolic Heart failure chronicity: acute on chronic Qualified Code(s): I50.33 - Acute on chronic diastolic (congestive) heart failure (3) ESRD on dialysis Onset Date: 10/12/17 Current Visit: Yes Status: Acute Plan: Patient to receive dialysis. Nephrology consulted (4) Anemia in chronic kidney disease Onset Date: 10/26/17 Current Visit: Yes Status: Chronic Plan: Will monitor closely. Overall stable. Qualifiers: Chronic kidney disease stage: on chronic dialysis Qualified Code(s): N18.6 - End stage renal disease; D63.1 - Anemia in chronic kidney disease; Z99.2 - Dependence on renal dialysis (5) CAD (coronary artery disease) Onset Date: 06/11/17 Current Visit: No Status: Chronic Plan: Continue with his medication Qualifiers: Coronary Disease-Associated Artery/Lesion type: [place] artery [place] vs. transplanted heart: [place] heart Associated angina: without angina Qualified Code(s): I25.10 - Atherosclerotic heart disease of [place] coronary artery without angina pectoris (6) HTN (hypertension) Onset Date: 06/11/17 Current Visit: No Status: Chronic Plan: Restart home medication. Qualifiers: Hypertension type: essential hypertension Qualified Code(s): I10 - Essential (primary) hypertension (7) Hyperlipidemia Onset Date: 06/11/17 Current Visit: No Status: Chronic Plan: Continue with medication Qualifiers: Hyperlipidemia type: mixed hyperlipidemia Qualified Code(s): E78.2 - Mixed hyperlipidemia Discharge Plan: Home Plan to discharge in: 24 Hours Time Spent Managing Pts Care (In Minutes): 55
[2017-10-26] MEDS ORDERED: HYDRALAZINE HCL 20 MG/ML VIAL IV PRN (16:36)
[2017-10-26] MEDS ORDERED: CALCITROL 0.25 MCG CAP PO SCH (17:00)
[2017-10-26] MEDS: CARVEDILOL 25 MG TAB PO SCH (17:40)
[2017-10-26] MEDS: LISINOPRIL 10 MG TAB PO SCH (17:41)
[2017-10-26] MEDS ORDERED: EPOETIN ALFA 10,000 UNIT/ML VIAL SQ ONE (21:00)
[2017-10-26] MEDS ORDERED: ATORVASTATIN 10 MG TAB PO SCH (21:00)
[2017-10-26] MEDS ORDERED: HOME MED 1 EA UNK (Vit A/Vit C/Vit E/Zinc/Copper [Preservision Areds Softgel] 1 CAP) PO SCH (21:00)
[2017-10-27 04:55] LABS: Absolute Lymphocytes (CBC) 1.2 K/uL (0.7-4.9); Absolute Monocytes 0.6 K/uL (0.1-1.3); Absolute Neutrophil 3.9 K/uL (1.8-8.0); Basophils % 1.3 % (0-1.3); Eosinophils % 4.4 % (0-4.4); Hematocrit 23.3 % (39.6-49.0); Lymphocytes % 19.5 % (15.3-44.8); MCH 30.5 pg (27.0-35.0); MCV 91.6 fL (80-100); MPV 6.9 fL (7.6-11.3); Monocytes % 10.1 % (3.3-12.3); RBC Red Blood Cell Count 2.55 M/uL (4.33-5.43)
[2017-10-27 05:05] LABS: Magnesium 1.8 mg/dL (1.8-2.5); Potassium 3.8 mEq/L (3.6-5.0)
[2017-10-27 05:40] VITALS: BMI 24.5
[2017-10-27] MEDS ORDERED: MAGNESIUM SULFATE 1 gm IVPB 1 GM/100 ML BAG IV ONE (05:44)
--- NOTE | 2017-10-27 08:23 | CON ---
Date of Consultation: 10/26/2017 Chief Complaint: End-stage renal disease, on dialysis. History Of Present Illness: The patient has multiple medical problems including history of congestive heart failure, coronary artery disease, hypertension. He recently was admitted to the hospital for pneumonia. After discharge from hospital he was doing well until 2 days ago when he developed progressively worse shortness of breath, productive cough with whitish secretion. He was found to have some dyspnea and he was placed on 2 L nasal cannula in the emergency room. He is admitted to the hospital because of respiratory distress, shortness of breath with light activities, and some chest discomfort. White blood cell count was normal. The patient is dialysis dependent and has been dialyzed 3 times per week. Last dialysis was on Thursday. Review of Systems: The patient complains generalized weakness and shortness of breath. Denies fever and chills. Eyes: Denies vision changes. Ears, Nose, Mouth, and Throat: Denies sore throat or earache. Respiratory: Has shortness of breath with light activities, productive cough. Denies hemoptysis. GI: Denies nausea or vomiting. : Denies dysuria or hematuria. Musculoskeletal: Denies muscle aches or joint swelling. Has some edema of the legs. All other system reviewed and all are negative. 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 Past Surgical History: Removal of the skin cancer of the left ear and right shoulder surgery, colon surgery. Family History: No kidney disease in the family. Social History: Denies tobacco, alcohol, or illicit drugs. Physical Examination: General: The patient is not in acute distress. Eyes: Anicteric sclerae. EOMI. Ears, Nose, Mouth, and Throat: Oral mucosa moist. No pallor. Neck: Supple. No JVD. No bruits. Lungs: Diminished breath sounds in the bases. Few wheezes, rhonchi, and crackles present bilaterally. Heart: S1, S2. No pericardial friction rub. Abdomen: Soft, benign, nontender. No rebound. No guarding. Extremities: Some edema present in both legs. Neurological: Moving extremities. Cranial nerves intact. Psychiatric: Alert and oriented x3. Normal affect. Laboratory Data: Sodium 140, potassium 4.0, chloride 104, CO2 27, BUN 56, creatinine 4.42, glucose 93, calcium 8.7, lactic acid 12.4, glucose 147. Troponin 0.04. BNP 2496. Hemoglobin 8.3, WBC 7.7, platelet count 306,000. 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 Impression And Plan: 1. Congestive heart failure, severe with diastolic dysfunction, fluid overload , hypertensive heart disease; the patient will start dialysis to control volume status. The patient was found to have elevated blood pressure. Systolic blood pressure up to 180. Resume carvedilol for blood pressure control. The patient has fluid overload. Continue dialysis. The patient may require dialysis with ultrafiltration. It will be done daily to treat fluid overload and provide management for acute on chronic congestive heart failure. 2. Anemia due to chronic disease , monitor hemoglobin level, adjust GUNJAN. 3. Renal osteodystrophy. Continue renal diet, monitor phosphorus and calcium level, adjust binders.. 4. Pulmonary edema. Workup is pending for coronary artery disease. Monitor troponin level. The patient will be seen by director of convention services to evaluate for congestive heart failure. 5. History of hyperparathyroidism. Continue renal diet , monitor phosphorus. 6. History of hypoalbuminemia, malnutrition, failure to thrive. Continue high -protein intake. Monitor calorie intake. JEFF/MORENA Voice ID: [id number] Report ID: [id number] GREY
--- NOTE | 2017-10-27 08:49 | RAD REPORT ---
EXAM DESCRIPTION: RAD - Chest Single View - 10/27/2017 6:44 am CLINICAL HISTORY: Shortness of breath. COMPARISON: 10/25/2017 FINDINGS: Portable technique limits examination quality. Moderate left and a small right pleural effusion, appearing slightly increased since prior study. Pat nathan opacity in both lung bases appear similar to comparative study. Right-sided venous catheter has t ip in the SVC. The heart is moderately enlarged. No displaced fractures. IMPRESSION: Slight worsening in lung aeration as detailed since comparative study.
[2017-10-27] MEDS ORDERED: FOLIC ACID 1 MG TABLET PO SCH (09:00)
[2017-10-27] MEDS ORDERED: ASPIRIN EC 81 MG TAB PO SCH (09:00)
[2017-10-27] MEDS ORDERED: MULTIVIT W/ MINERAL TAB PO SCH (09:00)
[2017-10-27] MEDS ORDERED: FERROUS SULFATE 325 MG TAB PO SCH (09:00)
[2017-10-27] MEDS ORDERED: OCUVITE (VIT A,C & E/LUTEIN/MINERAL) TABLET PO SCH (09:00)
[2017-10-27] MEDS ORDERED: VITAMIN D 1000 UNIT TAB PO SCH (09:00)
[2017-10-27] MEDS ORDERED: FUROSEMIDE 40 MG TABLET PO SCH (09:00)
[2017-10-27] MEDS: CALCIUM CARBONATE CHEW 500MG TAB PO SCH ×2 (09:14→11:38)
[2017-10-27] MEDS: LISINOPRIL 10 MG TAB PO SCH (09:15)
[2017-10-27] MEDS: CARVEDILOL 25 MG TAB PO SCH (09:17)
[2017-10-27 09:18] LABS: Hematocrit 26.4 % (39.6-49.0)
--- NOTE | 2017-10-27 12:33 | P.DS ---
Admission Date: 10/27/17 Discharge Date: 10/27/17 Primary Care Provider: Dr. Thomas; Nephrology-Dr. Marie Disposition: DC HOME/HOME HEALTH CARE Discharge Condition: GOOD Reason for Admission: acute respiratory failure Consultations: Nephrology-Dr. Hernandez/Dr. Quiñones Procedures: Recent echo shows ejection fraction 57%. - Problems (1) Acute respiratory failure Onset Date: 10/12/17 Current Visit: Yes Status: Acute Qualifiers: Respiratory failure complication: hypoxia Qualified Code(s): J96.01 - Acute respiratory failure with hypoxia (2) CHF (congestive heart failure) Onset Date: 10/26/17 Current Visit: Yes Status: Acute Qualifiers: Heart failure type: diastolic Heart failure chronicity: acute on chronic Qualified Code(s): I50.33 - Acute on chronic diastolic (congestive) heart failure (3) ESRD on dialysis Onset Date: 10/12/17 Current Visit: Yes Status: Acute (4) Anemia in chronic kidney disease Onset Date: 10/26/17 Current Visit: Yes Status: Chronic Qualifiers: Chronic kidney disease stage: on chronic dialysis Qualified Code(s): N18.6 - End stage renal disease; D63.1 - Anemia in chronic kidney disease; Z99.2 - Dependence on renal dialysis (5) CAD (coronary artery disease) Onset Date: 06/11/17 Current Visit: No Status: Chronic Qualifiers: Coronary Disease-Associated Artery/Lesion type: [place] artery [place] vs. transplanted heart: [place] heart Associated angina: without angina Qualified Code(s): I25.10 - Atherosclerotic heart disease of [place] coronary artery without angina pectoris (6) HTN (hypertension) Onset Date: 06/11/17 Current Visit: No Status: Chronic Qualifiers: Hypertension type: essential hypertension Qualified Code(s): I10 - Essential (primary) hypertension (7) Hyperlipidemia Onset Date: 06/11/17 Current Visit: No Status: Chronic Qualifiers: Hyperlipidemia type: mixed hyperlipidemia Qualified Code(s): E78.2 - Mixed hyperlipidemia (8) Anemia Current Visit: Yes Status: Chronic Qualifiers: Anemia type: due to chronic kidney disease Chronic kidney disease stage: on chronic dialysis Qualified Code(s): N18.6 - End stage renal disease; D63.1 - Anemia in chronic kidney disease; Z99.2 - Dependence on renal dialysis (9) Pleural effusion Current Visit: Yes Status: Chronic Brief History of Present Illness: 87-year-old male presented emergency room with increased shortness of breath. Patient with history of end-stage renal disease on dialysis, chronic pleural effusion, CHF, hypertension. Patient was evaluated emergency room. Patient required BiPAP initially. The patient was admitted for further evaluation. Hospital Course: Patient presented with acute respiratory distress secondary to chronic pleural effusions and likely acute on chronic CHF with underlying end-stage renal disease on hemodialysis. Patient was treated with dialysis. Shortness of breath improved. Patient had negative blood cultures. Patient with history of chronic pleural effusions. Previous CT scan done April 2017 showed bilateral pleural effusions at that time. Patient received information on fluid restriction and low-salt diet. Patient with home oxygen. At discharge he will continue with home oxygen to maintain sats above 90%. Patient will continue with a 1500 cc per day fluid restriction and low-salt diet. Patient did receive 2 dialysis treatments in the hospital. Patient will continue with dialysis Wednesdays and Fridays. He will need to monitor his weight daily. If his weight increases by more than 5 lb he is to contact nephrology for further recommendation. Nephrology requests that the patient be seen as an outpatient by pulmonology to further assess his chronic pleural effusions. Patient will continue with home health and physical therapy at discharge. Patient will continue with Lasix 80 mg daily. Case discussed with pulmonology prior to discharge. Patient has seen pulmonology in the past. Patient with chronic pleural effusions. At this time will continue with diuretic therapy. Patient with end-stage renal disease. Patient continue with dialysis Wednesdays and Fridays. Recommendation is for the patient follow up with nephrology as an outpatient to further monitor. Patient has hypertension. Patient continue with his medications carvedilol 25 mg 1 pill twice daily and lisinopril 10 mg daily. Recommendation is to maintain blood pressures less 150/80. Further adjustment can be done by nephrology or PCP. Patient has anemia of chronic disease. This has remained stable. This can be monitored and addressed by nephrology as an outpatient. Recommendation to recheck CBC in 1-2 weeks to monitor his progress. Patient will continue with iron supplementation and folic acid. Patient has CHF, diastolic dysfunction. Patient continue with above recommendation. Patient has hyperlipidemia peer patient continue with medication. Vital Signs/Physical Exam: Temp Pulse Resp BP Pulse Ox 98.0 F 60 18 158/65 H 96 10/27/17 08:00 10/27/17 09:17 10/27/17 08:00 10/27/17 09:17 10/27/17 08:00 General: Alert, In no apparent distress, Oriented x3, Cooperative HEENT: Atraumatic Neck: Supple Respiratory: Clear to auscultation bilaterally, Normal air movement Cardiovascular: Normal pulses, Regular rate/rhythm Gastrointestinal: Normal bowel sounds, Soft and benign, Non-distended, No tenderness, No masses, No rebound, No guarding Musculoskeletal: No erythema, No tenderness, No warmth Integumentary: No erythema, No warmth, No cyanosis Neurological: Normal speech, Normal strength at 5/5 x4 extr, Normal tone, Normal affect Laboratory Data at Discharge: WBC 6.0 K/uL (4.3-10.9) D 10/27/17 04:32 Hgb 8.9 g/dL (13.6-17.9) L 10/27/17 09:06 Hct 26.4 % (39.6-49.0) L 10/27/17 09:06 Plt Count 302 K/uL (152-406) 10/27/17 04:32 PT 14.9 SECONDS (9.5-12.5) H 10/25/17 21:35 INR 1.26 10/25/17 21:35 APTT 32.1 SECONDS (24.3-36.9) 10/25/17 21:35 Sodium 140 mEq/L (135-145) 10/27/17 04:32 Potassium 3.8 mEq/L (3.6-5.0) 10/27/17 04:32 BUN 35 mg/dL (6-20) H D 10/27/17 04:32 Creatinine 3.48 mg/dL (0.61-1.24) H 10/27/17 04:32 Glucose 105 mg/dL (65-120) 10/27/17 04:32 Magnesium 1.8 mg/dL (1.8-2.5) 10/27/17 04:32 Total Bilirubin 0.2 mg/dL (0.3-1.2) L 10/25/17 21:35 AST 18 IU/L (10-42) 10/25/17 21:35 ALT 13 IU/L (10-60) 10/25/17 21:35 Alkaline Phosphatase 69 IU/L (42-121) 10/25/17 21:35 B-Natriuretic Peptide 2496 pg/ml (<=100) H 10/25/17 21:35 Lipase 31 U/L (22-51) 10/25/17 21:35 Home Medications: Aspirin [Aspirin EC 81 MG] 81 mg PO DAILY 10/11/17 Benzonatate [Tessalon Perle*] 100 mg PO Q6H PRN 10/11/17 Calcitrol [Rocaltrol*] 0.25 mcg PO Q48H 10/11/17 Calcium Carbonate [Tums] 1 tab PO AC 10/11/17 Carvedilol [Coreg*] 25 mg PO BID 10/11/17 Cholecalciferol (Vitamin D3) [Vitamin D3] 1,000 units PO DAILY 10/11/17 Docusate/Senna [Senokot-S*] 2 tab PO BEDTIME PRN 10/11/17 Ferrous Sulfate [Ferrous Sulfate*] 325 mg PO DAILY 10/11/17 Furosemide [Lasix*] 80 mg PO DAILY 10/11/17 Multivit-Minerals/Folic Acid [Men's Multivitamin Gummies] 1 tab PO DAILY Simvastatin [Zocor] 20 mg PO DAILY 10/11/17 Vit A/Vit C/Vit E/Zinc/Copper [Preservision Areds Softgel] 1 cap PO BID Zinc Oxide [Zinc Oxide 20%*] 1 appl TOP BID PRN 10/11/17 Lisinopril [Prinivil*] 10 mg PO DAILY #30 tab 10/14/17 Folic Acid 1 mg PO DAILY #30 tablet 10/27/17 New Medications: Folic Acid 1 mg PO DAILY #30 tablet Patient Discharge Instructions: 1. Patient will need a follow up with PCP in 1 week to follow up this hospitalization. 2. Patient presented with acute respiratory distress secondary to chronic pleural effusions and likely acute on chronic CHF with underlying end-stage renal disease on hemodialysis. Patient was treated with dialysis. Shortness of breath improved. Patient had negative blood cultures. Patient with history of chronic pleural effusions. Previous CT scan done April 2017 showed bilateral pleural effusions at that time. At discharge he will continue with home oxygen to maintain sats above 90%. Patient will continue with a 1500 cc per day fluid restriction and low-salt diet. Patient will continue with dialysis Wednesdays and Fridays. He will need to monitor his weight daily. If his weight increases by more than 5 lb he is to contact nephrology for further recommendation. Patient will continue with home health and physical therapy at discharge. Patient will continue with Lasix 80 mg daily. Patient will need to follow up with pulmonology as an outpatient to further follow his chronic pleural effusions. 3. Patient with end-stage renal disease. Patient continue with dialysis Wednesdays and Fridays. Recommendation is for the patient follow up with nephrology as an outpatient to further monitor. 4. Patient has hypertension. Patient continue with his medications carvedilol 25 mg 1 pill twice daily and lisinopril 10 mg daily. Recommendation is to maintain blood pressures less 150/80. Further adjustment can be done by nephrology or PCP. 5. Patient has anemia of chronic disease. This has remained stable. This can be monitored and addressed by nephrology as an outpatient. Recommendation to recheck CBC in 1-2 weeks to monitor his progress. Patient will continue with iron supplementation and folic acid. 6. Patient has CHF, diastolic dysfunction. Patient continue with above recommendation. Diet: Renal Activity: Fall precautions Time spent managing pt's care (in minutes): 55
--- NOTE | 2017-10-27 13:16 | PN ---
Date of Progress Note: 10/27/2017 Subjective: The patient admitted with over volume. The patient is status post dialysis yesterday, f eeling better. Still requiring oxygen. Blood pressure has been maintained. Objective: Vital Signs: Blood pressure 158/65, pulse of 60, afebrile. Chest: Decreased air entry on the left base. Heart: S1, S2. Regular. Systolic murmur. Abdomen: Soft, nontender. Extremities: Trace edema. Laboratory Data: H and H 8.9/26.4. Sodium 140, potassium 3.8, bicarb 31, BUN 35, creatinine 3.4, ca lcium 8.3, magnesium 1.8. Medications: Current medications the patient on its include Epogen, oral iron, calcium carbonate, at orvastatin, carvedilol 25 b.i.d., hydralazine p.r.n., lisinopril 10 daily, Lasix 80 daily, folic acid , Calcitriol, cholecalciferol, multivitamin. Assessment And Plan: 1.End-stage renal disease, over volume. I am going to go ahead and do sequential of 2 hour today. After that, the patient is going to be cleared from the renal standpoint for discharge planning to fo llow up with his dialysis Thursday, Thursday, Thursday. We will consider doing extra treatment every ot her week to establish better volume control on him given the recurrent admission. 2.Anemia. Continue Epogen. 3.Secondary hyperparathyroidism, stable. Continue current treatment. 4.Clear effusion. The patient had been seen by Dr. Sharma before. We will arrange for outpatient followup. The patient cleared from the renal standpoint for discharge planning. ILDA Voice ID: [id number] Report ID: [id number]
[2017-10-27 16:44] VITALS: BP 183/81; TEMP 97.8
[2017-10-27] MEDS ORDERED: CALCITROL 0.25 MCG CAP PO SCH (17:00)
[2017-10-27 17:19] VITALS: O2SAT 95
[2017-10-29 02:40] LABS: HBsAG Nonreactive (Nonreactive)
== END 2017-10-27 17:25 | disposition home health service (06) | DRG 189 ==
LOC: ER 21:22 → ERHOLD 23:30 → 2ND 10-26 00:09 → OBSVTOIN 10-27 11:54
PROVIDERS: ADMIT Internal Medicine; ATTEND Internal Medicine
PROC: 5A1D70Z Performance of Urinary Filtration, Intermittent, Less than 6 Hours Per Day (ICD-10-PCS; principal; 2017-10-27)
PROC: 5A09457 Assistance with Respiratory Ventilation, 24-96 Consecutive Hours, Continuous Positive Airway Pressure (ICD-10-PCS; 2017-10-27)
DX: J96.01 Acute respiratory failure with hypoxia (principal); N18.6 End stage renal disease; I50.33 Acute on chronic diastolic (congestive) heart failure; I13.2 Hypertensive heart and chronic kidney disease with heart failure and with stage 5 chronic kidney disease, or end stage renal disease; Z99.2 Dependence on renal dialysis; I25.10 Atherosclerotic heart disease of native coronary artery without angina pectoris; D63.1 Anemia in chronic kidney disease; E78.5 Hyperlipidemia, unspecified; Z79.82 Long term (current) use of aspirin; N25.0 Renal osteodystrophy
CPT/HCPCS: 36415; 71045; 80048; 80076; 81003; 81015; 82550; 82553; 82962; 83605; 83690; 83735; 83880; 84145; 84484; 85014; 85018; 85025; 85610; 85730; 86704; 86706; 86803; 87040; 87086; 87088; 87340; 87804; 90935; 93005; 94640; 94660; 94760; 96374; 99285; G0378; J3475; Q4081

== ENCOUNTER 2017-11-17 12:58 | Observation (INO) | payer OTHER ==
--- OUTSIDE RECORDS SUMMARY | 2017-11-17 13:04 | XMS REPORT | Clinical Summary ---
:1930 Author Organization [facility] Address [address] [place] [address] Care Team Providers Name Role Phone Asked, [...] Take 1 tablet Active ACID/MULTIVIT,IRON, by mouth TOWEL HEMMER (CENTRUM daily. ORAL) furosemide (LASIX) Take 80 [...] EXTREMITY MD Casey AV FISTULA CREATION after 11/16/2016 Social History Tobacco Use Types Packs/Day Years Used Date Never Smoker Smokeless Tobacco: Never Used Alcohol Use Drinks/Week oz/Week Comments No Sex Assigned at Date Recorded Not on file Last Filed Vital Signs Vital Sign Reading Time Taken Blood Pressure 168/72 08/12/2017 6:17 PM [employer]ER Pulse 64 08/12/2017 6:17 PM [employer] Temperature 37.1 C (98.7 F) 08/12/2017 6:17 PM [employer] RECY[employer]ER Respiratory Rate 16 08/12/2017 6:17 PM [employer]S RECYCLER Oxygen Saturation 96% 08/12/2017 6:17 PM MATERIALS RECYCLER Inhaled Oxygen Concentration - - Weight 81.5 [...] Procedure Name Priority Date/Time Associated Diagnosis Comments TN AN ELECTIVE Routine 08/12/2017 3:10 PM SUPRAGLOTTIC AIRWAY [employer] Procedure Note - Wilmer Contreras MD - 08/12/2017 3:10 PM [employer] Airway Performed by: DARIA HUERTA Authorized by: DARIA HUERTA Location: OR Urgency: Elective Difficult Airway: No Anesthesiologist: DARIA HUERTA Performed by: anesthesiologist Preoxygenated with 100% O2: Yes C-spine Precautions Maintained Throughout: Yes Mask Ventilation: Easy mask Final Airway Type: Supraglottic airway Final LMA: Classic LMA Size: 4 Number of Attempts at Approach: 1 Left UPPER EXTREMITY AV FISTULA 08/12/2017 2:45 PM MATERIALS RECYCLER End stage renal disease CREATION Case Notes C-ARM Special Needs C-ARM after 11/16/2016 Results Potassium, syringe (08/12/2017 11:45 AM) Component Value Ref Range Potassium, syringe 4.7 3.5 - 5.0 mEq/L Specimen Performing Laboratory Blood [facility] DEPARTMENT OF PATHOLOGY AND GENOMIC MEDICINE [address] [place] [phone] Hemoglobin, syringe (08/12/2017 11:45 AM) Component Value Ref Range Hemoglobin, syringe 9.3 (L) 14.0 - 18.0 g/dL Specimen Performing Laboratory Blood [facility] DEPARTMENT OF PATHOLOGY AND GENOMIC MEDICINE [address] [place] [phone] Glucose level, syringe (08/12/2017 11:45 AM) Component Value Ref Range Glucose, syringe 96 65 - 99 mg/dL Specimen Performing Laboratory Blood [facility] DEPARTMENT OF PATHOLOGY AND GENOMIC MEDICINE [address] [place] [phone] after 11/16/2016 Insurance Payer Benefit Plan / Group Subscriber ID Type Phone Address MEDICARE MEDICARE PART A AND B xxxxxxxxxx Medicare [place], [place] AETNA AETNA PPO OPEN CHOICE xxxxxxxxx PPO [employer] Self 1930 Home: [address] Liability [phone] [phone] [place] [address]
[2017-11-17] MEDS ORDERED: ONDANSETRON 4 MG/2 ML VIAL IV PRN (13:53)
[2017-11-17] MEDS ORDERED: ACETAMINOPHEN 500 MG TAB PO PRN (13:53)
[2017-11-17] MEDS ORDERED: VANCOMYCIN/NS 1 gm 1 GM/250 ML BAG IVPB SCH (14:00)
[2017-11-17 14:10] VITALS: BMI 23.4
[2017-11-17 14:34] LABS: Absolute Lymphocytes (CBC) 1.2 K/uL (0.7-4.9); Absolute Monocytes 0.7 K/uL (0.1-1.3); Absolute Neutrophil 3.7 K/uL (1.8-8.0); Basophils % 0.8 % (0-1.3); Eosinophils % 3.8 % (0-4.4); Hematocrit 25.9 % (39.6-49.0); Lymphocytes % 20.1 % (15.3-44.8); MCV 89.8 fL (80-100); MPV 6.7 fL (7.6-11.3); RBC Red Blood Cell Count 2.88 M/uL (4.33-5.43)
--- NOTE | 2017-11-17 14:37 | EKG ---
Test Date: 2017-11-17 Test Time: 14:04:54 [employer] Conservationist: BERNICE MEASUREMENT RESULTS: Intervals: Rate: 60 [place]: QRSD: 98 QT: 454 QTc: 454 [place]: P: IL: QRS: 59 T: 52 INTERPRETIVE STATEMENTS: Atrial fibrillation Septal infarct, age undetermined T wave abnormality, consider anterior ischemia or digitalis effect Abnormal ECG Compared to ECG 10/25/2017 21:55:40 Sinus rhythm no longer present First degree AV block no longer present Myocardial infarct finding still present T-wave abnormality still present Possible ischemia still present Electronically Signed On 11-17-17 14:36:54 CDT by Jonathan Carmona
[2017-11-17 14:45] LABS: Potassium 3.2 mEq/L (3.6-5.0)
[2017-11-17] MEDS ORDERED: VANCOMYCIN 500 MG in NA CHLORIDE 0.9% 100 ML IVPB SCH (14:45)
[2017-11-17 14:48] LABS: Albumin 2.7 g/dL (3.2-5.5); Bilirubin Total 0.4 mg/dL (0.3-1.2); Phosphorus 3.5 mg/dL (2.5-4.3); Protein, Total 6.7 g/dL (6.0-8.3)
[2017-11-17] MEDS: CEFTRIAXONE/SWI 1gm 1 GM/10 ML SYR IV SCH ×2 (14:57→20:21)
--- NOTE | 2017-11-17 15:54 | RAD REPORT ---
EXAM DESCRIPTION: RAD - Chest Pa And Lat (2 Views) - 11/17/2017 3:42 pm CLINICAL HISTORY: Shortness of breath COMPARISON: 10/27/2017 FINDINGS: Small left pleural effusion is noted. Linear atelectasis is present in the right lung base . Right-sided venous catheter its tip in the SVC. The heart is mildly enlarged. No displaced fracture s. IMPRESSION: Small left pleural effusion.
[2017-11-17] MEDS ORDERED: POTASSIUM CL SA 10 MEQ TAB PO ONE (16:00)
[2017-11-17] MEDS: ENOXAPARIN 30 MG/0.3 ML SQ SCH (17:05)
[2017-11-17] MEDS ORDERED: EPOETIN ALFA 10,000 UNIT/ML VIAL SQ SCH (17:30)
[2017-11-17] MEDS ORDERED: SOD FERRIC GLUC COMPLX/SUCROSE 125 MG in NA CHLORIDE 0.9% 100 ML IV SCH (18:00)
[2017-11-17] MEDS ORDERED: DOCUSATE NA/SENNA CONC 1 TAB PO PRN (18:08)
[2017-11-17] MEDS: CARVEDILOL 12.5 MG TAB PO SCH (20:20)
[2017-11-17] MEDS: ATORVASTATIN 10 MG TAB PO SCH (20:20)
[2017-11-17] MEDS ORDERED: CALCITROL 0.25 MCG CAP PO SCH (21:00)
--- NOTE | 2017-11-18 02:00 | HP ---
Date of Admission: 11/17/2017 Primary Care Physician: Dr. Evans Thomas. Attraction Attendant: Dr. Marie, Nephrology. Chief Complaint: Shortness of breath. Code Status: Do not resuscitate. History Of Present Illness: The patient is an 87-year-old male with past medical history of coronary artery disease, hypertension, hyperlipidemia, history of colon cancer, chronic kidney disease, end-stage renal disease on hemodialysis, congestive heart failure. He was in his usual state of health and was recently discharged from the hospital on 10/27/2017 for acute respiratory failure. 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 The patient is suspected to have pneumonia. He always has some chronic effusion. The patient was therefore sent into the hospital for further evaluation and treatment of his symptoms as a direct admission by Dr. Marie. The patient does report generalized weakness for the past week, some shortness of breath. It should be noted that the patient is on 2 L of oxygen all the time. The patient denies any cough, fever, or sputum production. Does report some ill contacts, specifically his grandson, whom he visited recently. The patient was noted to have a hemoglobin of 7.5 from labs that were drawn on Thursday. The patient's symptoms were constant, moderate, progressively worsening. The patient was admitted to the hospital for further evaluation and treatment. Past Medical History: Coronary artery disease, CHF, hypertension, hyperlipidemia, history of colon cancer, end-stage renal disease on hemodialysis Thursday, Thursday, Thursday; history of skin cancers on the left ear , face and right hand. Past Surgical History: Partial colectomy 2007, removal of skin cancer from the left ear, face and right hand at different times, right shoulder surgery. Allergies: TO DOXYCYCLINE CAUSES ITCHING, HIVES AND RASH; TO IODINE, WHICH CAUSES ANAPHYLAXIS. Medications: List reviewed. Family History: Noncontributory in this 87-year-old male. Social History: The patient denies any alcohol use, tobacco use, or illicit drug use. The patient lives at home. Needs cane with activities of daily living. Review of Systems: An 11-point system reviewed, negative except as per HPI. Physical Examination: Vital Signs: T97.2, HR 73. RR18 BP 154/83 O2 98% ON 2L General: Awake, alert, oriented x3, in some mild distress. Elderly male, ill appearing, lethargic. HEENT: Normocephalic and atraumatic. PERRLA. EOMI. Moist mucous membranes. Oropharynx is clear. Conjunctiva anicteric. Normal dentition. CV: S1 and S2. Regular rate and rhythm. Peripheral pulses present. Respiratory: Diminished breath sounds at the bases. No wheezing or stridor. Gastrointestinal: Abdomen is soft, nontender, nondistended. Positive bowel sounds. No guarding or rigidity. Extremities: No clubbing, cyanosis, or edema. No calf tenderness. Neurologic: Cranial nerves 2 through 12 intact grossly. Strength is symmetric in bilateral upper and lower extremities. Speech is normal. Skin: No rashes. Normal skin turgor. Psych: Mood is okay. Affect is full. Insight and judgment are good. Laboratory Data: Pending. Assessment And Plan: An 87-year-old male with; 1. [id number] respiratory distress, may be secondary to pneumonia versus pleural effusion from pulmonary edema related to his end-stage renal disease. We will obtain chest x-ray. Continue home oxygen. Monitor O2 saturation. 2. End-stage renal disease, on hemodialysis. We will consult Dr. Marie. The patient was dialyzed extra day yesterday. 3. Congestive heart failure, diastolic dysfunction, chronic. 4. Anemia of chronic disease secondary to end-stage renal disease on dialysis. We will monitor H and H. The patient will likely need transfusion. We will type and cross and transfuse in a.m. with dialysis. Hemoglobin was 7.5 on the weekend. 5. Coronary artery disease, negative artery and negative heart without angina. Resume home medications as appropriate. 6. Essential hypertension. We will resume home medications as appropriate. 7. Hyperlipidemia, mixed. Continue home medications. 8. History of colon cancer, status post partial colectomy. 9. History of skin cancer, status post resection. 10. Gastrointestinal and deep venous thrombosis prophylaxis with PPI and Lovenox renally dosed. Plan: Admit to Med-Surg, place as observation. The patient may have pneumonia. We will start him on empiric antibiotics. Obtain chest x-ray, blood cultures, sputum cultures, pharmacy to dose. /MORENA Voice ID: [id number]
[2017-11-18] MEDS ORDERED: HYDRALAZINE HCL 20 MG/ML VIAL IV ONE (03:49)
[2017-11-18 04:48] LABS: Absolute Lymphocytes (CBC) 1.4 K/uL (0.7-4.9); Absolute Monocytes 0.6 K/uL (0.1-1.3); Absolute Neutrophil 3.9 K/uL (1.8-8.0); Basophils % 0.7 % (0-1.3); Hematocrit 26.7 % (39.6-49.0); Lymphocytes % 21.8 % (15.3-44.8); MCH 29.4 pg (27.0-35.0); MCV 89.8 fL (80-100); MPV 6.6 fL (7.6-11.3); Monocytes % 10.2 % (3.3-12.3); RBC Red Blood Cell Count 2.97 M/uL (4.33-5.43)
[2017-11-18 05:14] LABS: Potassium 3.6 mEq/L (3.6-5.0)
[2017-11-18] MEDS: CALCIUM CARBONATE CHEW 500MG TAB PO SCH ×3 (09:11→18:34)
--- NOTE | 2017-11-18 09:11 | EKG ---
Test Date: 2017-11-18 Test Time: 07:36:33 Senior Information Security Architect: BERNICE MEASUREMENT RESULTS: Intervals: Rate: 71 CO: 354 QRSD: 96 QT: 430 QTc: 467 [place]: P: 59 CO: 354 QRS: 64 T: 37 INTERPRETIVE STATEMENTS: Sinus rhythm with 1st degree AV block Anteroseptal infarct, age undetermined T wave abnormality, consider lateral ischemia Abnormal ECG Compared to ECG 11/17/2017 14:04:54 First degree AV block now present Atrial fibrillation no longer present Myocardial infarct finding still present T-wave abnormality still present Possible ischemia still present Electronically Signed On 11-18-17 09:10:45 CDT by Roque Santiago
[2017-11-18] MEDS: CARVEDILOL 12.5 MG TAB PO SCH ×2 (09:12→21:07)
[2017-11-18] MEDS: ASPIRIN EC 81 MG TAB PO SCH (09:12)
[2017-11-18] MEDS: CEFTRIAXONE/SWI 1gm 1 GM/10 ML SYR IV SCH ×2 (09:13→21:08)
[2017-11-18] MEDS: LISINOPRIL 10 MG TAB PO SCH (09:13)
[2017-11-18] MEDS: FOLIC ACID 1 MG TABLET PO SCH (09:14)
[2017-11-18] MEDS ORDERED: NA CHLORIDE 0.9% 250 ML ONE (11:47)
--- NOTE | 2017-11-18 12:06 | CON ---
Date of Consultation: 11/18/2017 Additional Consulting Physician: Tessy Seay MD Reason For Consultation: Elevated BUN and creatinine, fluid management, end-stage renal disease. History Of Present Illness: This is an 87-year-old gentleman with significant past medical history o f hypertension, end-stage renal disease, recently started on dialysis, CHF, coronary artery disease c omplicated with congestive heart failure, skin cancer, the patient came to the hospital direct admiss ion from my office as the patient's lab showed severe anemia down to 7.3. The patient was shortness of breath and feeling weak. For that reason, send over. The patient denied any cough. Has signific ant fatigue. The patient had treatment of dialysis in Thursday. After that, he felt better, then ag ain felt weak. Past Medical History: Includes: 1.Coronary artery disease, complicated with congestive heart failure. 2.Hypertension. 3.Hyperlipidemia. 4.End-stage renal disease, on hemodialysis, Thursday, Thursday, Thursday at home dialysis through [facility]. Past Surgical History: Includes: 1.Colectomy in 2007. 2.Skin cancer removal. 3.Right hand surgery. 4.AV fistula creation on the left arm. Allergies: TO DOXYCYCLINE, IODINE. Family History: Positive for hypertension. Social History: Denies smoking. Denied alcohol. Denied drug abuse. Review of Systems: Head and Neck: No red eye. No ear pain. Has fatigue. GI: Decreased intake. : No polyuria. No dysuria. No hematuria. BIO MEDICAL TECHNICIAN: Not applicable. Respiratory: Has shortness of breath, oxygen-dependent. Cardiovascular: No leg swelling. Has orthopnea. Endocrine: No polydipsia. Skin: No rash. Neuro: Generalized fatigue. Musculoskeletal: Generalized weakness. Physical Examination: Vital Signs: When I saw the patient, blood pressure 179/64, pulse of 69, afebrile. Chest: Decreased air entry on the left base. Heart: S1, S2. Systolic murmur. Abdomen: Soft, nontender. Extremity: No edema. Laboratory Data: WBC 6.3, H and H 8.7/26.7, platelets 305. Sodium 141, potassium 3.6, bicarb 30, BU N 40, creatinine 4.1, GFR of 14, calcium 8.8. Vitamin D of 26, TSH of 1. Chest x-ray, cardiomegaly, no significant congestion. Assessment And Plan: 1.End-stage renal disease, looked to me normal volume. I am going to do dialysis today. I will adj ust his dry weight to 74 kilos. We are not going to challenge the patient as looked the patient on t he dry side and we will follow up. 2.Hypertension. The patient was orthostatic mostly secondary to over ultrafiltration. We are not g oing to challenge the patient today and we will follow up the patient. 3.Questionable bronchitis/pneumonia. Continue current antibiotics. Culture done yesterday, still n egative. 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 We will give 1 unit of transfusion today. We will give IV iron and Epogen, and we will follow up. 5.Congestive heart failure, currently normal volume. We will establish better new dry weight. The patient cleared from the Renal standpoint for discharge kristian nichole after dialysis. CHRISTOPHER/MORENA Voice ID: [id number] Report ID: [id number]
--- NOTE | 2017-11-18 16:43 | DS ---
Date of Discharge: 11/18/2017 Consultants: Dr. Marie with Nephrology. Admitting Diagnoses: 1.Acute on chronic respiratory distress. 2.End-stage renal disease, on hemodialysis. 3.Congestive heart failure, diastolic dysfunction, chronic. 4.Anemia of chronic disease secondary to end-stage renal disease, on dialysis. 5.Coronary artery disease, ek[place] artery and ekuk heart without angina. 6.Essential hypertension. 7.Hyperlipidemia, mixed. 8.History of colon cancer status post partial colectomy. 9.History of skin cancer status post resection. Discharge Diagnoses: 1.Acute on chronic respiratory distress secondary to pneumonia and pleural effusion, improved. 2.End-stage renal disease, on hemodialysis. 3.Diastolic heart failure, chronic. 4.Anemia of chronic disease secondary to end-stage renal disease, on dialysis. 5.Coronary artery disease, ek[place] artery and ek[place] heart without angina. 6.Essential hypertension, stable. 7.Hyperlipidemia, mixed. 8.History of colon cancer status post partial colectomy. 9.History of skin cancer, status post resection. Hospital Course: The patient is an 87-year-old male, who is on dialysis due to end-stage renal disea se. Has other comorbid conditions including heart disease, hypertension, hyperlipidemia, history of previous skin and colon cancer, who comes in directly from Dr. Marie's office for hemoglobin of 7. 3. The patient was admitted to the hospital. He was also found to have some possible pneumonia type symptoms; however, his chest x-ray only showed a small pleural effusion. The patient's white count was normal. His hemoglobin was improved, on admission it was 8.3; however, he did receive 1 unit of PRBCs with dialysis. He did have some electrolyte abnormalities, which were corrected. His blood cu ltures were negative. The patient was seen by Dr. Marie with Nephrology. He was dialyzed the . The patient did report some weakness, otherwise was doing okay at home. The patient was then cleared for discharge after dialysis. He did have some difficulty getting access to his dialys is catheter. Condition: Fair. Diet: Renal. Activity: Fall precautions. Followup: Follow up with primary care physician in 2-3 days. Return to ER for worsening condition. Follow up with corrosion control technician, Dr. Marie in 1 week. Medications: As per medication reconciliation list. Physical Examination: General: Awake, alert, oriented, no acute distress. CV: S1, S2. No murmurs. Respiratory: Moving air well bilaterally. Gastrointestinal: Abdomen is soft, nontender, and nondistended. Positive bowel sounds. Extremities: No clubbing, cyanosis, edema. Neurologic: Nonfocal. SA/MODL Voice ID: [id number] Report ID: [id number]
[2017-11-18] MEDS: HYDRALAZINE HCL 20 MG/ML VIAL IV PRN (16:45)
[2017-11-18] MEDS ORDERED: FUROSEMIDE 20 MG/ 2ML VIAL IV ONE (17:00)
[2017-11-18] MEDS ORDERED: cloNIDine HCl 0.1 MG TAB PO ONE (18:00)
[2017-11-18] MEDS: ENOXAPARIN 30 MG/0.3 ML SQ SCH (18:35)
--- NOTE | 2017-11-18 20:33 | RAD REPORT ---
EXAM DESCRIPTION: RAD - Chest Single View - 11/18/2017 8:13 pm CLINICAL HISTORY: Dialysis patient, shortness of breath COMPARISON: November 17 TECHNIQUE: AP portable chest image was obtained 2002 hours . FINDINGS: Left pleural effusion is present similar to the prior study. Right pleural fluid is slight ly larger than prior study. Lung volumes are low accentuating heart, vasculature and lung markings. R esidual volume overload suspected. Trachea is midline. Dialysis catheter in place. Heart size is mini fredo enlarged. No pneumothorax. No gross bony abnormality seen. No acute aortic findings suspected. IMPRESSION: Shallow inspiration film showing bilateral pleural effusions slightly larger on the righ t compared to November 17. Vasculature and lung markings are prominent. Residual or recurrent volume overload suspected.
[2017-11-18 20:44] LABS: Hematocrit 28.1 % (39.6-49.0)
[2017-11-18] MEDS: ATORVASTATIN 10 MG TAB PO SCH (21:07)
[2017-11-18 21:11] LABS: Potassium 3.8 mEq/L (3.6-5.0)
[2017-11-18 21:12] LABS: Magnesium 1.8 mg/dL (1.8-2.5)
[2017-11-19] MEDS: HYDRALAZINE HCL 20 MG/ML VIAL IV PRN (01:40)
[2017-11-19 05:24] LABS: Absolute Lymphocytes (CBC) 1.2 K/uL (0.7-4.9); Absolute Monocytes 0.8 K/uL (0.1-1.3); Absolute Neutrophil 4.6 K/uL (1.8-8.0); Basophils % 0.7 % (0-1.3); Eosinophils % 3.9 % (0-4.4); Hematocrit 27.3 % (39.6-49.0); Lymphocytes % 17.3 % (15.3-44.8); MCH 30.4 pg (27.0-35.0); MCV 88.1 fL (80-100); MPV 6.8 fL (7.6-11.3); Monocytes % 11.4 % (3.3-12.3)
[2017-11-19 05:46] LABS: Potassium 3.6 mEq/L (3.6-5.0)
[2017-11-19 08:19] VITALS: BP 125/54; TEMP 97.2
[2017-11-19] MEDS: CEFTRIAXONE/SWI 1gm 1 GM/10 ML SYR IV SCH (08:23)
[2017-11-19] MEDS: CALCIUM CARBONATE CHEW 500MG TAB PO SCH (08:23)
[2017-11-19] MEDS: FOLIC ACID 1 MG TABLET PO SCH (08:24)
[2017-11-19] MEDS: ASPIRIN EC 81 MG TAB PO SCH (08:24)
[2017-11-19] MEDS: CARVEDILOL 12.5 MG TAB PO SCH (08:24)
--- NOTE | 2017-11-19 08:24 | EKG ---
Test Date: 2017-11-19 Test Time: 06:41:40 Sole Seamer: RT MEASUREMENT RESULTS: Intervals: Rate: 71 RI: QRSD: 96 QT: 442 QTc: 480 [place]: P: RI: QRS: 54 T: 19 INTERPRETIVE STATEMENTS: Atrial fibrillation Anteroseptal infarct, age undetermined Abnormal ECG Compared to ECG 11/18/2017 07:36:33 Sinus rhythm no longer present First degree AV block no longer present T-wave abnormality no longer present Possible ischemia no longer present Myocardial infarct finding still present Electronically Signed On 11-19-17 08:23:34 CDT by Jonathan Carmona
[2017-11-19] MEDS: LISINOPRIL 10 MG TAB PO SCH (08:25)
[2017-11-19 09:21] VITALS: O2SAT 98
--- NOTE | 2017-11-19 16:32 | PN ---
Date of Progress Note: 11/19/2017 Subjective: The patient doing well. No nausea. No vomiting. Feeling more energy. Physical Examination: Vital Signs: Blood pressure 125/54, pulse of 73. Chest: Clear to auscultation. Heart: S1, S2. Regular. Abdomen: Soft, nontender. Extremities: No edema. Laboratory Data: H and H 9.4/27.3. Sodium 141, potassium 3.6, bicarb 31, BUN 22, creatinine 2.8, calcium 8.8. Medications: Current medications the patient on its include Lasix, hydralazine. Assessment And Plan: 1. End-stage renal disease. Continue dialysis Thursday, Thursday, Thursday. 2. Secondary hyperparathyroidism, stable. 3. Anemia status post transfusion. Continue of IV iron. 4. Fatigue secondary to over ultrafiltration. We will adjust his dry weight and we will follow up. 5. Bronchitis, chronic obstructive pulmonary disease exacerbation. Agreed with Levaquin and breathing treatment. The patient cleared from the Renal standpoint for discharge planning to follow up with his dialysis. ILDA Voice ID: [id number] Report ID: [id number] GREY
--- NOTE | 2017-11-19 17:17 | PN ---
Date of Progress Note: 11/19/2017 Subjective: The patient seen and examined, chart reviewed, and case discussed with RN and Dr. Artemio mc. The patient unfortunately was unable to be discharged yesterday after blood transfusion and dial ysis and repeat blood check. The patient denies any complaints other than a little bit of leg spasms . Review of Systems: Negative except as above. Medications: Reviewed. Objective: Vital signs: Temperature 97.2, heart rate 73, blood pressure 125/54, respirations 18, an d O2 98% on 2 L via nasal cannula. General: Awake, alert, oriented, no acute distress. Elderly male. CV: S1, S2. Peripheral pulses present. Respiratory: Moving air well bilaterally. Some diminished breath sounds at the bases. Gastrointestinal: Abdomen is soft, nontender, nondistended. Positive bowel sounds. Extremities: No clubbing, cyanosis. Trace edema. Neurologic: Nonfocal. Laboratory Data: Sodium 141, potassium 3.6, chloride 99, CO2 31, BUN 22, creatinine 2.80, glucose 11 1, and calcium 8.8. WBC 6.8, H and H 7.4, 27.3, and platelets 280. Chest x-ray shows shallow inspir ation, film showing bilateral pleural effusions slightly larger on the right compared to November 17. Vascular and lung markings prominent, residual recurrent volume overload suspected. Assessment: An 87-year-old male with; 1.Acute on chronic respiratory distress secondary to pleural effusion, improved, back on 2 L. The p atient is oxygen dependent. 2.End-stage renal disease, on hemodialysis. 3.Diastolic heart failure, chronic. 4.Anemia of chronic disease secondary to end-stage renal disease, on dialysis. 5.Coronary artery disease, [place] artery and [place] fork heart without angina. 6.Essential hypertension, stable. 7.Hyperlipidemia, mixed. 8.History of colon cancer, status post partial colectomy. 9.History of skin cancer, status post resection. 10.Bilateral pleural effusions secondary to end-stage renal disease. Plan: Discharge home. /MORENA Voice ID: [id number] Report ID: [id number]
== END 2017-11-19 12:46 | disposition home or self-care (01) ==
LOC: 4TH 13:01
PROVIDERS: ADMIT Family Medicine; ATTEND Family Medicine
DX: R06.03 Acute respiratory distress (principal); I13.2 Hypertensive heart and chronic kidney disease with heart failure and with stage 5 chronic kidney disease, or end stage renal disease; N18.6 End stage renal disease; I50.32 Chronic diastolic (congestive) heart failure; D63.1 Anemia in chronic kidney disease; I25.10 Atherosclerotic heart disease of native coronary artery without angina pectoris; E78.2 Mixed hyperlipidemia; Z85.038 Personal history of other malignant neoplasm of large intestine; Z85.828 Personal history of other malignant neoplasm of skin; Z99.2 Dependence on renal dialysis
CPT/HCPCS: 36415 ×2; 71045; 71046; 80048 ×2; 80053; 82306; 83605; 83735 ×2; 84100; 84132; 84443; 85014; 85018; 85025 ×3; 86850; 86900; 86901; 87040 ×2; 90935; 93005 ×3; 94760 ×6; J0360 ×3; J0696 ×5; J1650 ×2; J2916; P9016; Q4081; 36430; G0257

== ENCOUNTER 2017-12-30 08:54 | Day surgery (SDC) | payer OTHER ==
[2017-12-30] MEDS ORDERED: BUPIVACAINE 0.5% PF 10 ML VIAL ONE (09:13)
--- OUTSIDE RECORDS SUMMARY | 2017-12-30 09:32 | XMS REPORT | Clinical Summary ---
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 ORAL) furosemide (LASIX) Take 80 [...] EXTREMITY MD Casey AV FISTULA CREATION after 12/29/2016 Social History Tobacco Use Types Packs/Day Years Used Date Never Smoker Smokeless Tobacco: Never Used Alcohol Use Drinks/Week oz/Week Comments No Sex Assigned at Date Recorded Not on file Last Filed Vital Signs Vital Sign Reading Time Taken Blood Pressure 168/72 08/12/2017 6:17 PM HEALTH PLAN SPECIALIST Pulse 64 08/12/2017 6:17 PM HEALTH PLAN SPECIALIST Temperature 37.1 C (98.7 F) 08/12/2017 6:17 PM HEALTH PLAN SPECIALIST Respiratory Rate 16 08/12/2017 6:17 PM HEALTH PLAN SPECIALIST Oxygen Saturation 96% 08/12/2017 6:17 PM HEALTH PLAN SPECIALIST Inhaled Oxygen Concentration - - Weight 81.5 [...] Procedure Name Priority Date/Time Associated Diagnosis Comments [place] AN ELECTIVE Routine 08/12/2017 3:10 PM SUPRAGLOTTIC AIRWAY HEALTH PLAN SPECIALIST Procedure Note - Wilmer Contreras MD - 08/12/2017 3:10 PM HEALTH PLAN SPECIALIST Airway Performed by: DARIA HUERTA Authorized by: DARIA HUERTA Location: OR Urgency: Elective Difficult Airway: No Anesthesiologist: DARIA HUERTA Performed by: anesthesiologist Preoxygenated with 100% O2: Yes C-spine Precautions Maintained Throughout: Yes Mask Ventilation: Easy mask Final Airway Type: Supraglottic airway Final LMA: Classic LMA Size: 4 Number of Attempts at Approach: 1 CREATION, AV FISTULA 08/12/2017 2:45 PM HEALTH PLAN SPECIALIST End stage renal disease Case Notes C-ARM Special Needs C-ARM HEMOGLOBIN, SYRINGE STAT 08/12/2017 11:45 AM HEALTH PLAN SPECIALIST GLUCOSE LEVEL, SYRINGE STAT 08/12/2017 11:45 AM HEALTH PLAN SPECIALIST POTASSIUM, SYRINGE STAT 08/12/2017 11:45 AM HEALTH PLAN SPECIALIST after 12/29/2016 Results Potassium, syringe (08/12/2017 11:45 AM) Potassium, syringe 4.7 3.5 - 5.0 mEq/L [facility] DEPARTMENT OF PATHOLOGY AND GENOMIC MEDICINE Specimen Blood Performing Organization Address City/[facility] Phone Number [facility] DEPARTMENT OF PATHOLOGY AND [address] [place] [phone] GENOMIC MEDICINE Hemoglobin, syringe (08/12/2017 11:45 AM) Hemoglobin, syringe 9.3 (L) 14.0 - 18.0 g/dL [facility] DEPARTMENT OF PATHOLOGY AND GENOMIC MEDICINE Specimen Blood Performing Organization Address City/[facility] Phone Number [facility] DEPARTMENT OF PATHOLOGY AND [address] [place] [phone] GENOMIC MEDICINE Glucose level, syringe (08/12/2017 11:45 AM) Glucose, syringe 96 65 - 99 mg/dL [facility] DEPARTMENT OF PATHOLOGY AND GENOMIC MEDICINE Specimen Blood Performing Organization Address City/[facility] Phone Number [facility] DEPARTMENT OF PATHOLOGY AND [address] [place], [place] [phone] [employer] MEDICINE after 12/29/2016 Insurance Payer Benefit Plan / Group Subscriber ID Type Phone Address MEDICARE MEDICARE PART A AND B xxxxxxxxxx Medicare [place], [place] AETNA AETNA PPO OPEN CHOICE xxxxxxxxx PPO [employer] Self 1930 Home: [address] [facility] [phone] [place] [address]
[2017-12-30 09:43] LABS: Absolute Lymphocytes (CBC) 1.3 K/uL (0.7-4.9); Absolute Monocytes 0.6 K/uL (0.1-1.3); Absolute Neutrophil 3.5 K/uL (1.8-8.0); Basophils % 0.9 % (0-1.3); Eosinophils % 6.8 % (0-4.4); Lymphocytes % 21.9 % (15.3-44.8); MCV 90.3 fL (80-100); MPV 6.9 fL (7.6-11.3); Monocytes % 10.7 % (3.3-12.3); RBC Red Blood Cell Count 3.33 M/uL (4.33-5.43)
[2017-12-30 09:49] LABS: Potassium 3.7 mmol/L (3.5-5.1)
[2017-12-30] MEDS ORDERED: NA CHLORIDE 0.9% 500 ML ONE (10:06)
[2017-12-30] MEDS ORDERED: CEFAZOLIN/SWI 1gm 1 GM/10 ML SYR ONE (10:37)
[2017-12-30] MEDS ORDERED: LIDOCAINE 1% MPF 5 ML VIAL ONE (10:45)
[2017-12-30] MEDS ORDERED: PROPOFOL 200 MG/20 ML VIAL IV ONE (10:45)
[2017-12-30] MEDS ORDERED: FENTANYL CITR 100 MCG/2 ML ONE (10:45)
[2017-12-30 13:45] VITALS: BP 183/65; TEMP 98.4; O2SAT 96
--- NOTE | 2017-12-30 19:02 | OP ---
Date of Procedure: 12/30/2017 Surgeon: Arnie Mena MD Preoperative Diagnosis: End-stage renal disease. Postoperative Diagnosis: End-stage renal disease. Procedure: Removal OF right chest Tesio catheter. Estimated Blood Loss: Minimal. Specimen: Tensor catheter for identification. Findings: Normal anatomy. Anesthesia: MAC. Complications: None. Disposition: The patient tolerated the procedure in stable condition and taken to Recovery in good g eneral condition. Operative Note: The patient was brought to the OR and placed in supine position. MAC anesthesia beg un and then the patient was prepped draped in the usual sterile fashion. Lidocaine 1% was infiltrated locally. A 15-blade was used to make approximately a 3 x 1 cm ellipse of skin incision around the i nsertion site of the catheter. Subcutaneous tissue divided. Cuff identified, freed from the surroun ding tissue with sharp and blunt dissection. Then catheter removed for identification and sent to [facility]. Wound irrigated. Bleeding controlled with the cautery. Flaps created. A 2-0 chromic and 3-0 chromic used to approximate tissue and close the skin. Sterile dressing was applied. The patien t was awakened and taken to Recovery in good general condition. Discharge Note: The patient will go to Day surgery and home when stable. Disposition: Home. Condition: Stable. Discharge Instructions: Resume home medications and diet. Activity as tolerated. No heavy lifting. Remove outer dressing in 2 days. Shower. Keep wound clean and dry. Follow up in my office in 2 w eeks. Call for appointment. Tylenol No.3 one tablet p.o. q.4 p.r.n. pain. /MODL Voice ID: [id number] Report ID: [id number]
== END 2017-12-30 12:40 | disposition home or self-care (01) ==
LOC: OR 08:54
PROVIDERS: ATTEND Surgery
PROC: 0JPT0XZ Removal of Tunneled Vascular Access Device from Trunk Subcutaneous Tissue and Fascia, Open Approach (ICD-10-PCS; principal; 2017-12-30 10:45)
DX: Z49.01 Encounter for fitting and adjustment of extracorporeal dialysis catheter (principal); N18.6 End stage renal disease
CPT/HCPCS: 36415; 36590; 80048; 85025; 88300; J0690; J3010

== ENCOUNTER 2018-02-14 12:59 | Inpatient (IN) | payer OTHER ==
--- OUTSIDE RECORDS SUMMARY | 2018-02-14 13:02 | XMS REPORT | Clinical Summary ---
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 ORAL) furosemide (LASIX) Take 80 [...] EXTREMITY MD Casey AV FISTULA CREATION after 02/13/2017 Social History Tobacco Use Types Packs/Day Years Used Date Never Smoker Smokeless Tobacco: Never Used Alcohol Use Drinks/Week oz/Week Comments No Sex Assigned at Date Recorded Not on file Last Filed Vital Signs Vital Sign Reading Time Taken Blood Pressure 168/72 08/12/2017 6:17 PM HYDRATOR OPERATOR Pulse 64 08/12/2017 6:17 PM HYDRATOR OPERATOR Temperature 37.1 C (98.7 F) 08/12/2017 6:17 PM HYDRATOR OPERATOR Respiratory Rate 16 08/12/2017 6:17 PM HYDRATOR OPERATOR Oxygen Saturation 96% 08/12/2017 6:17 PM HYDRATOR OPERATOR Inhaled Oxygen Concentration - - Weight 81.5 [...] Procedure Name Priority Date/Time Associated Diagnosis Comments [place] AN ELECTIVE Routine 08/12/2017 3:10 PM SUPRAGLOTTIC AIRWAY HYDRATOR OPERATOR Procedure Note - Wilmer Contreras MD - 08/12/2017 3:10 PM HYDRATOR OPERATOR Airway Performed by: DARIA UHERTA Authorized by: DARIA HUERTA Location: OR Urgency: Elective Difficult Airway: No Anesthesiologist: DARIA HUERTA Performed by: anesthesiologist Preoxygenated with 100% O2: Yes C-spine Precautions Maintained Throughout: Yes Mask Ventilation: Easy mask Final Airway Type: Supraglottic airway Final LMA: Classic LMA Size: 4 Number of Attempts at Approach: 1 CREATION, AV FISTULA 08/12/2017 2:45 PM HYDRATOR OPERATOR End stage renal disease Case Notes C-ARM Special Needs C-ARM HEMOGLOBIN, SYRINGE STAT 08/12/2017 11:45 AM HYDRATOR OPERATOR GLUCOSE LEVEL, SYRINGE STAT 08/12/2017 11:45 AM HYDRATOR OPERATOR POTASSIUM, SYRINGE STAT 08/12/2017 11:45 AM HYDRATOR OPERATOR after 02/13/2017 Results Potassium, syringe (08/12/2017 11:45 AM) Potassium, syringe 4.7 3.5 - 5.0 mEq/L [facility] DEPARTMENT OF PATHOLOGY AND GENOMIC MEDICINE Specimen Blood Performing Organization Address City[facility] Phone Number [facility] DEPARTMENT OF PATHOLOGY AND [address] [place] [phone] GENOMIC MEDICINE Hemoglobin, syringe (08/12/2017 11:45 AM) Hemoglobin, syringe 9.3 (L) 14.0 - 18.0 g/dL [facility] DEPARTMENT OF PATHOLOGY AND GENOMIC MEDICINE Specimen Blood Performing Organization Address City/[facility] Phone Number [facility] DEPARTMENT OF PATHOLOGY AND [address] [place] [phone] GENOMIC MEDICINE Glucose level, syringe (08/12/2017 11:45 AM) Glucose, syringe 96 65 - 99 mg/dL [facility] DEPARTMENT OF PATHOLOGY AND GENOMIC MEDICINE Specimen Blood Performing Organization Address City/[facility] Phone Number [facility] DEPARTMENT OF PATHOLOGY AND [address] [place], [place] [phone] [employer] MEDICINE after 02/13/2017 Insurance Payer Benefit Plan / Group Subscriber ID Type Phone Address MEDICARE MEDICARE PART A AND B xxxxxxxxxx Medicare [place], [place] AETNA AETNA PPO OPEN CHOICE xxxxxxxxx PPO [employer] ROSS Third [employer] Party Self 1930 Home: [address] [facility] [phone] [place] [address]
--- NOTE | 2018-02-14 14:08 | RAD REPORT ---
EXAM DESCRIPTION: RAD - Chest Single View - 02/14/2018 1:52 pm CLINICAL HISTORY: Shortness of breath COMPARISON: November 2017 TECHNIQUE: AP portable chest image was obtained 1347 hours . FINDINGS: Lung volumes are low. Central vasculature and lung markings are prominent. Small bilateral pleural effusions are present. There is lung base atelectasis. Heart size is still within normal ran ge. Trachea is midline. No pneumothorax. No gross bony abnormality seen. No acute aortic findings shamar pected. IMPRESSION: Mild CHF/volume overload findings accentuated by shallow inspiration.
[2018-02-14 14:26] LABS: Absolute Monocytes 0.6 K/uL (0.1-1.3); Absolute Neutrophil 4.4 K/uL (1.8-8.0); Basophils % 1.2 % (0-1.3); Eosinophils % 2.7 % (0-4.4); Hematocrit 29.5 % (39.6-49.0); Lymphocytes % 16.4 % (15.3-44.8); MCH 29.7 pg (27.0-35.0); MPV 7.1 fL (7.6-11.3); Monocytes % 9.7 % (3.3-12.3); RBC Red Blood Cell Count 3.24 M/uL (4.33-5.43)
[2018-02-14 14:29] LABS: Protime INR 1.31
[2018-02-14 14:40] LABS: CKMB Creatine Kinase MB 1.6 ng/mL (0.3-3.6); Magnesium 2.2 mg/dL (1.8-2.4); Potassium 3.8 mmol/L (3.5-5.1); Troponin (Emerg Dept Use Only) 0.24 ng/mL (0.0-0.045)
--- NOTE | 2018-02-14 15:05 | EDPHYS ---
Physician Documentation [facility] Name: Evans Thomas Age: 87 yrs Sex: Male : 1930 Arrival Date: 02/14/2018 Time: 13:01 Bed 14 Private MD: ED Physician Mg Collado HPI: 02/14 14:55 This 87 yrs old Male presents to ER via Wheelchair with complaints of kb Breathing Difficulty. 14:55 The patient has shortness of breath at rest. Onset: The symptoms/episode began/occurred kb 1 week(s) ago. Duration: The symptoms are continuous. The patient's shortness of breath is aggravated by light activity. Associated signs and symptoms: The patient has no apparent associated signs or symptoms. Severity of symptoms: At their worst the symptoms were moderate in the emergency department the symptoms are unchanged. The patient has experienced similar episodes in the past, multiple times. The patient has not recently seen a physician. Historical: - Allergies: 13:18 Doxycycline; aj1 13:18 Iodine; aj1 - Home Meds: 13:18 carvedilol 12.5 mg oral tab 2 times per day [Active]; lisinopril 10 mg Oral tab 1 tab aj1 once daily [Active]; Zocor 20 mg Oral tab 1 tab once daily [Active]; folic acid 1 mg Oral tab 1 tab once daily [Active]; hydralazine 25 mg Oral tab 1 tab three times daily. Hold if SBP <140 [Active]; Senokot S 2 tabs Oral bedtime prn [Active]; aspirin 81 mg Oral TbEC 1 tab once daily [Active]; Men's Multivitamin Gummies 200 mcg Oral chew daily [Active]; Vitamin D Oral 1000 unit daily [Active]; - PMHx: 13:18 Anemia; Angina; CAD; CHF; colon cancer; ESRD; High Cholesterol; Hypertension; aj1 Myocardial infarction; Pneumonia; - PSHx: 13:30 Heart stents; Bowel resection; right chest wall pascual; rb1 - Immunization history:: Flu vaccine is not up to date. - Social history:: Smoking status: Patient/guardian denies using tobacco. - Ebola Screening: : Patient denies travel to an Ebola-affected area in the 21 days before illness onset. ROS: 14:55 Constitutional: Negative for fever, chills, and weight loss, Cardiovascular: Negative kb for chest pain, palpitations, and edema, Abdomen/GI: Negative for abdominal pain, nausea, vomiting, diarrhea, and constipation, Back: Negative for injury and pain, : Negative for injury, bleeding, discharge, and swelling, MS/Extremity: Negative for injury and deformity, Skin: Negative for injury, rash, and discoloration, Neuro: Negative for headache, weakness, numbness, tingling, and seizure. 14:55 Respiratory: Positive for dyspnea on exertion, shortness of breath, Negative for cough, hemoptysis, orthopnea, pleurisy, sputum production, wheezing. Exam: 14:55 Constitutional: This is a well developed, well nourished patient who is awake, alert, kb and in no acute distress. Head/Face: Normocephalic, atraumatic. Chest/axilla: Normal chest wall appearance and motion. Nontender with no deformity. No lesions are appreciated. Cardiovascular: Regular rate and rhythm with a normal S1 and S2. No gallops, murmurs, or rubs. Normal PMI, no JVD. No pulse deficits. Abdomen/GI: Soft, non-tender, with normal bowel sounds. No distension or tympany. No guarding or rebound. No evidence of tenderness throughout. Skin: Warm, dry with normal turgor. Normal color with no rashes, no lesions, and no evidence of cellulitis. MS/ Extremity: Pulses equal, no cyanosis. Neurovascular intact. Full, normal range of motion. Neuro: Awake and alert, GCS 15, oriented to person, place, time, and situation. Cranial nerves II-XII grossly intact. Motor strength 5/5 in all extremities. Sensory grossly intact. Cerebellar exam normal. Normal gait. 14:55 Respiratory: mild respiratory distress is noted, Respirations: labored breathing, that is mild, Breath sounds: decreased breath sounds, that are mild, that are moderate, are located in both bases. Vital Signs: 13:18 BP 162 / 48; Pulse 62; Resp 20; Temp 97.6(TE); Pulse Ox 98% on 2 lpm NC; Weight 73.48 aj1 kg (R); 16:30 BP 173 / 69; Pulse 60; Resp 22; Pulse Ox 100% on 2 lpm NC; rb1 17:30 BP 187 / 70; Pulse 67; Resp 20; Pulse Ox 99% on 2 lpm NC; rb1 18:30 BP 183 / 71; Pulse 64; Resp 19; Pulse Ox 99% on 2 lpm NC; rb1 MDM: 13:23 Patient medically screened. kb 15:02 Data reviewed: vital signs, nurses notes. Data interpreted: Pulse oximetry: on room air kb is 98 %. Interpretation: normal. Counseling: I had a detailed discussion with the patient and/or guardian regarding: the historical points, exam findings, and any diagnostic results supporting the discharge/admit diagnosis, lab results, radiology results, the need for further work-up and treatment in the hospital. 15:02 Physician consultation: Josesito Pitts MD was contacted at 15:03, regarding admission, to kb the telemetry unit. patient's condition, and will see patient shortly, would like consultation with Nephrology. 15:03 Physician consultation: Sherman Pérez MD was contacted at 15:03, regarding kb consult. 02/14 13:32 Order name: Basic Metabolic Panel kb 02/14 13:32 Order name: CBC with Diff; Complete Time: 14:38 kb 02/14 13:32 Order name: Ckmb; Complete Time: 14:46 kb 02/14 13:32 Order name: CPK; Complete Time: 14:46 kb 02/14 13:32 Order name: Magnesium; Complete Time: 14:46 kb 02/14 13:32 Order name: NT PRO-BNP; Complete Time: 14:46 kb 02/14 13:32 Order name: PT-INR; Complete Time: 14:38 kb 02/14 13:32 Order name: Ptt, Activated; Complete Time: 14:38 kb 02/14 13:32 Order name: Troponin (emerg Dept Use Only); Complete Time: 14:46 kb 02/14 13:32 Order name: XRAY Chest (1 view); Complete Time: 14:16 kb 02/14 13:32 Order name: EKG; Complete Time: 13:33 kb 02/14 13:32 Order name: Cardiac monitoring; Complete Time: 14:15 kb 02/14 13:33 Order name: Basic Metabolic Panel; Complete Time: 14:46 EDMS 02/14 13:32 Order name: IV Saline Lock; Complete Time: 14:15 kb 02/14 13:32 Order name: Labs collected and sent; Complete Time: 14:15 kb 02/14 13:32 Order name: O2 Per Protocol; Complete Time: 14:15 kb 02/14 13:32 Order name: O2 Sat Monitoring; Complete Time: 14:15 kb Administered Medications: No medications were administered Disposition: 02/15 06:59 Co-signature as Attending Physician, Mg Collado MD. rn Disposition: 02/14/18 15:04 Hospitalization ordered by Josesito Pitts for Observation. Preliminary diagnosis are Dyspnea, Volume Overload. - Bed requested for Telemetry/MedSurg (observation). - Status is Observation. rb1 - Condition is Stable. - Problem is an acute exacerbation. - Symptoms are unchanged. UTI on Admission? No Signatures: Dispatcher [employer] EDMS Akilah Cope, RENÉE-C NEUROSURGICAL NURSE-CkBonnie Dao Angela, RN RN aj1 Mg Collado MD MD rn Barber, Rebecca RN RN rb1 Corrections: (The following items were deleted from the chart) 02/14 15:02 14:55 Respiratory: mild respiratory distress is noted, moderate respiratory distress is kb noted, kb 16:24 15:04 Hospitalization Ordered by Josesito Pitts MD for Observation. Preliminary diagnosis bd is Dyspnea; Volume Overload. Bed requested for Telemetry/MedSurg (observation). Status is Observation. Condition is Stable. Problem is an acute exacerbation. Symptoms are unchanged. UTI on Admission? No. kb 18:32 16:24 02/14/2018 15:04 Hospitalization Ordered by Josesito Pitts MD for Observation. rb1 Preliminary diagnosis is Dyspnea; Volume Overload. Bed requested for Telemetry/MedSurg (observation). Status is Observation. Condition is Stable. Problem is an acute exacerbation. Symptoms are unchanged. UTI on Admission? No. bd
--- NOTE | 2018-02-14 15:05 | ER ---
Nurse's Notes [facility] Name: Evans Thomas Age: 87 yrs Sex: Male : 1930 Arrival Date: 02/14/2018 Time: 13:01 Bed 14 Private MD: Diagnosis: Dyspnea;Volume Overload Presentation: 02/14 13:12 Presenting complaint: Child states: He's been feeling short of breath for several days, aj1 when he had dialysis on Thursday he was told to come to the emergency room on Thursday to have a blood transfusion and to see if he needs dialysis again. Denies cough, congestion, fever. Transition of care: patient was not received from another setting of care. Onset of symptoms was February 12, 2018. Risk Assessment: Do you want to hurt yourself or someone else? Patient reports no desire to harm self or others. Initial Sepsis Screen: Does the patient meet any 2 criteria? No. Patient's initial sepsis screen is negative. Does the patient have a suspected source of infection? No. Patient's initial sepsis screen is negative. Care prior to arrival: None. 13:12 Method Of Arrival: Wheelchair aj1 13:12 Acuity: DWAIN 3 aj1 Triage Assessment: 13:18 General: Appears in no apparent distress. uncomfortable, Behavior is calm, cooperative, aj1 appropriate for age. Pain: Denies pain. Neuro: Level of Consciousness is awake, alert, obeys commands. Cardiovascular: Patient's skin is warm and dry. Respiratory: Reports shortness of breath on exertion Airway is patent Respiratory effort is even, unlabored, Respiratory pattern is regular, symmetrical, Onset: The symptoms/episode began/occurred gradually, the patient has mild shortness of breath. Historical: - Allergies: 13:18 Doxycycline; aj1 13:18 Iodine; aj1 - Home Meds: 13:18 carvedilol 12.5 mg oral tab 2 times per day [Active]; lisinopril 10 mg Oral tab 1 tab aj1 once daily [Active]; Zocor 20 mg Oral tab 1 tab once daily [Active]; folic acid 1 mg Oral tab 1 tab once daily [Active]; hydralazine 25 mg Oral tab 1 tab three times daily. Hold if SBP <140 [Active]; Senokot S 2 tabs Oral bedtime prn [Active]; aspirin 81 mg Oral TbEC 1 tab once daily [Active]; Men's Multivitamin Gummies 200 mcg Oral chew daily [Active]; Vitamin D Oral 1000 unit daily [Active]; - PMHx: 13:18 Anemia; Angina; CAD; CHF; colon cancer; ESRD; High Cholesterol; Hypertension; aj1 Myocardial infarction; Pneumonia; - PSHx: 13:30 Heart stents; Bowel resection; right chest wall pascual; rb1 - Immunization history:: Flu vaccine is not up to date. - Social history:: Smoking status: Patient/guardian denies using tobacco. - Ebola Screening: : Patient denies travel to an Ebola-affected area in the 21 days before illness onset. Screenin:30 Abuse screen: Denies threats or abuse. Nutritional screening: No deficits noted. rb1 Tuberculosis screening: No symptoms or risk factors identified. 13:30 Fall Risk No fall in past 12 months (0 pts). No secondary diagnosis (0 pts). IV access rb1 (20 points). Ambulatory Aid- Crutches/Cane/Walker (15 pts). Gait- Normal/Bed Rest/Wheelchair (0 pts) Mental Status- Oriented to own ability (0 pts). Total Ramirez Fall Scale indicates Low Risk Score (25-44 pts). Fall prevention measures have been instituted. Side Rails Up X 2 Placed close to Nursing Station 1:1 attendant Assigned to Pt. Frequent Obs/Assesments occuring Family Present and informed to notify staff if they need to leave bedside As available Patient and Family Educated on Fall Prevention Program and strategies. Assessment: 13:30 General: Appears in no apparent distress. comfortable, Behavior is calm, cooperative, rb1 Denies fever. Pain: Denies pain. Neuro: Level of Consciousness is awake, alert, obeys commands, Oriented to person, place, time, situation. Cardiovascular: Capillary refill < 3 seconds is brisk in bilateral fingers. Respiratory: Airway is patent Respiratory effort is even, unlabored, Respiratory pattern is regular, symmetrical, Breath sounds are diminished in right lower lobe Denies cough, congestions Parent/caregiver reports the patient having shortness of breath several days. GI: No signs and/or symptoms were reported involving the gastrointestinal system. : Parent/caregiver report the patient having Dialysis on MWF. Derm: Skin is pink, warm \T\ dry. Musculoskeletal: NO STICKS ON THE LEFT ARM. 13:30 Cardiovascular: Rhythm is irregular. rb1 14:30 Reassessment: Patient appears in no apparent distress at this time. No changes from rb1 previously documented assessment. Family at bedside. 15:29 Reassessment: Patient appears in no apparent distress at this time. Patient and/or rb1 family updated on plan of care and expected duration. Pain level reassessed. Patient is alert, oriented x 3, equal unlabored respirations, skin warm/dry/pink. Call light within reach. 15:30 Reassessment: Gave report to ROBERT Morales. She will be coming in to dialyze the pt later. rb1 Provider, Pt. and family notified. 16:28 Reassessment: Patient appears in no apparent distress at this time. Pt. is resting with rb1 eyes closed, respirations even, unlabored. Call light within reach. Family at bedside. 17:15 Reassessment: Tried to call report, was told by community relations officer that ROBERT Polanco was rb1 giving pain medication and would call me back for report. 17:26 Reassessment: Patient appears in no apparent distress at this time. Patient and/or rb1 family updated on plan of care and expected duration. Pain level reassessed. Patient is alert, oriented x 3, equal unlabored respirations, skin warm/dry/pink. 18:00 Reassessment: Gave report to ROBERT Polanco. Information from the [facility] was given. All rb1 questions asked and answered. 18:04 Reassessment: Dr. Pitts is at bedside. Notified of pt. high blood pressure. He will put rb1 orders in for the floor. 18:22 Reassessment: Patient appears in no apparent distress at this time. No changes from rb1 previously documented assessment. Vital Signs: 13:18 BP 162 / 48; Pulse 62; Resp 20; Temp 97.6(TE); Pulse Ox 98% on 2 lpm NC; Weight 73.48 aj1 kg (R); 16:30 BP 173 / 69; Pulse 60; Resp 22; Pulse Ox 100% on 2 lpm NC; rb1 17:30 BP 187 / 70; Pulse 67; Resp 20; Pulse Ox 99% on 2 lpm NC; rb1 18:30 BP 183 / 71; Pulse 64; Resp 19; Pulse Ox 99% on 2 lpm NC; rb1 ED Course: 13:01 Patient arrived in ED. as 13:15 Triage completed. aj1 13:18 Arm band placed on Patient placed in an exam room. aj1 13:23 [facility]ilah Cope [facility]-C [facility]. kb 13:23 Mg Collado MD is Attending Physician. kb 13:25 Marium Linda, RN is Primary Nurse. rb1 13:30 Patient has correct armband on for positive identification. Bed in low position. Call rb1 light in reach. Side rails up X 1. RED SLEEVE PLACED ON LEFT ARM. air sampling and monitoring on. Pulse ox on. NIBP on. Warm blanket given. 13:52 XRAY Chest (1 view) In Process Unspecified. EDMS 14:05 Initial lab(s) drawn, by me, sent to lab. Inserted saline lock: 20 gauge in right dh3 antecubital area, using aseptic technique. Blood collected. 15:04 Josesito Pitts MD is Hospitalizing Provider. kb 18:32 No provider procedures requiring assistance completed. Patient admitted, IV remains in rb1 place. Administered Medications: No medications were administered Outcome: 15:04 Decision to Hospitalize by Provider. kb 18:32 Patient left the ED. rb1 18:32 Admitted to accompanied by nurse, via wheelchair, Report called to ROBERT Moralescheckering machine adjuster rb1 will take the pt. to the floor after dialysis 18:32 Condition: stable 18:32 Instructed on the need for admit. Signatures: Dispatcher [employer] EDIN Akilah Cope FNP-C FNP-Manuela Caldwell RN RN aj1 Makayla Wright as Marium Linda, RN RN [facility] Corrections: (The following items were deleted from the chart) 16:56 13:30 Respiratory: Airway is patent Respiratory effort is even, unlabored, Respiratory rb1 pattern is regular, symmetrical, Breath sounds are diminished in right lower lobe Denies cough, congestions rb1
[2018-02-14] MEDS ORDERED: HYDRALAZINE HCL 20 MG/ML VIAL IV PRN (18:10)
--- NOTE | 2018-02-14 18:32 | P.HP ---
Certification for Inpatient Patient admitted to: Observation With expected LOS: <2 Midnights Patient will require the following post-hospital care: None Practitioner: I am a practitioner with admitting privileges, knowledge of patient current condition, hospital course, and medical plan of care. Services: Services provided to patient in accordance with Admission requirements found in Title 42 Section 412.3 of the Code of Federal Regulations Patient History Date of Service: 02/14/18 Reason for admission: SOB History of Present Illness: 87 y/o man with CAD, ESRD on HD who presents with progressive SOB, worseing in the past 2 days. He has no chest pain. He has no fever. He had similar problems in the recent past. He states that urgent HD did not help much of his SOB. CT showed pleural effusions before, as well as small amount pericardial effusions. Allergies doxycycline Allergy (Verified 12/30/17 09:19) Itching/Hives/Rash iodine [Iodine] Allergy (Verified 12/30/17 09:19) Anaphylaxis Home Medications: Aspirin [Aspirin EC 81 MG] 81 mg PO DAILY 10/11/17 Calcitrol [Rocaltrol*] 0.25 mcg PO Q48H 10/11/17 Carvedilol [Coreg*] 12.5 mg PO BID 10/11/17 Docusate/Senna [Senokot-S*] 2 tab PO BEDTIME PRN 10/11/17 Multivit-Minerals/Folic Acid [Men's Multivitamin Gummies] 1 tab PO DAILY Simvastatin [Zocor] 20 mg PO BEDTIME 10/11/17 Vit A/Vit C/Vit E/Zinc/Copper [Preservision Areds Softgel] 1 cap PO BID Folic Acid 1 mg PO DAILY #30 tablet 10/27/17 Amino Acids/Protein Hydrolys [Liquacel 100 Liquid Protein] 2 tbsp PO DAILY 11/17 Calcium Carbonate [Tums] 200 mg PO TIDWM 12/30/17 Hydralazine HCl 25 mg PO TID PRN 12/30/17 Lisinopril [Prinivil*] 10 mg PO BID 12/30/17 - Past Medical/Surgical History Diabetic: No -: Angina -: CAD -: HTN -: Hylerlipidemia -: Colon Ca -: CKD Stage 3 -: skin Ca- squamous cell-left ear, face & right hand -: dyspnea -: nephrotic range proteinuria -: renal anasarca -: part of colon removed(2007) -: removal of skin Ca from left ear, face & right hand(different times) -: right shoulder surgery -: left fistula -: right pascual - Family History Father -: Heart disease Sister -: Diabetes - Social History Alcohol use: No CD- Drugs: No Caffeine use: No Review of Systems 10-point ROS is otherwise unremarkable Physical Examination - Physical Exam General: Alert, In no apparent distress HEENT: Atraumatic, PERRLA, Mucous membr. moist/pink, EOMI, Sclerae nonicteric Neck: Supple, 2+ carotid pulse no bruit, No LAD, Without JVD or thyroid abnormality Respiratory: Clear to auscultation bilaterally, Normal air movement Cardiovascular: Regular rate/rhythm, Normal S1 S2 Gastrointestinal: Normal bowel sounds, No tenderness Musculoskeletal: No tenderness Integumentary: No rashes Neurological: Normal gait, Normal speech, Normal strength at 5/5 x4 extr, Normal tone, Normal affect Lymphatics: No axilla or inguinal lymphadenopathy - Studies Laboratory Data (last 24 hrs) 02/14/18 14:03: PT 15.5 H, INR 1.31, APTT 36.7 02/14/18 14:03: WBC 6.3, Hgb 9.6 L, Hct 29.5 L, Plt Count 337 02/14/18 14:03: Sodium 145, Potassium 3.8, BUN 64 H, Creatinine 5.50 H*, Glucose 118 H, Magnesium 2.2 Assessment and Plan - Plan SOB, fluid overload, r/o pericardial effusion, r/o pleural effusion CAD, ? A Fib on EKG HTN ESRD on HD PLANS: --Will start urgent HD today --Hydralazine PRN IV --CT chest --ECho repeated tomorrow --Resume home meds - Advance Directives Does patient have a Living Will: Yes Does patient have a Durable POA for Healthcare: Yes
[2018-02-15 05:34] LABS: Urine Appearance CLOUDY; Urine Bilirubin NEGATIVE (NEG); Urine Blood TRACE (NEG); Urine Color YELLOW; Urine Glucose TRACE (NEG); Urine Protein 3+ (NEG); Urine Specific Gravity 1.025 (1.005-1.030); Urine Urobilinogen 0.2 mg/dL (0.2-1.0); Urine pH 5.5 (5.0-7.0)
[2018-02-15 05:36] LABS: Urine Microscopic Reflex ORDER UMIC
[2018-02-15 05:45] LABS: Absolute Lymphocytes (CBC) 1.1 K/uL (0.7-4.9); Absolute Monocytes 0.6 K/uL (0.1-1.3); Absolute Neutrophil 3.9 K/uL (1.8-8.0); Basophils % 0.7 % (0-1.3); Eosinophils % 5.1 % (0-4.4); Lymphocytes % 18.3 % (15.3-44.8); MCH 29.9 pg (27.0-35.0); MCV 89.7 fL (80-100); MPV 6.5 fL (7.6-11.3); Monocytes % 10.8 % (3.3-12.3); RBC Red Blood Cell Count 3.13 M/uL (4.33-5.43)
[2018-02-15 05:47] LABS: Albumin 2.4 g/dL (3.4-5.0); Bilirubin Total 0.3 mg/dL (0.2-1.0); Protein, Total 6.9 g/dL (6.4-8.2)
[2018-02-15 05:56] LABS: Urine Bacteria >50 /HPF (NONE SEEN); Urine Coarse Granular Casts 0-5 /LPF (NONE SEEN); Urine Culture Reflex Order REFLEXED; Urine Waxy Casts 0-5 /LPF (NONE SEEN)
--- NOTE | 2018-02-15 07:03 | EKG ---
Test Date: 2018-02-14 Test Time: 14:45:47 Diploma Dental Assistant: MEASUREMENT RESULTS: Intervals: Rate: 62 [place]: QRSD: 100 QT: 506 QTc: 513 [place]: P: IL: QRS: 63 T: 87 INTERPRETIVE STATEMENTS: Atrial fibrillation Anteroseptal infarct, age undetermined Prolonged QT Abnormal ECG Compared to ECG 11/19/2017 06:41:40 Prolonged QT interval now present Myocardial infarct finding still present Electronically Signed On 02-15-18 07:01:14 CDT by Jonathan Carmona
[2018-02-15] MEDS ORDERED: PNEUMOCOCCAL VACCINE 0.5 ML IMVAC ONE (08:00)
[2018-02-15] MEDS ORDERED: ALBUTEROL 2.5 MG/3 ML NEB SOL IH PRN (08:06)
[2018-02-15] MEDS: HYDRALAZINE HCL 25 MG TABLET PO SCH ×3 (08:54→22:30)
[2018-02-15] MEDS: CARVEDILOL 12.5 MG TAB PO SCH ×2 (08:54→22:31)
[2018-02-15] MEDS: LISINOPRIL 10 MG TAB PO SCH (08:54)
[2018-02-15] MEDS: VITAMIN D 1000 UNIT TAB PO SCH (08:54)
[2018-02-15] MEDS: FOLIC ACID 1 MG TABLET PO SCH (08:54)
[2018-02-15] MEDS: ASPIRIN EC 81 MG TAB PO SCH (08:58)
--- NOTE | 2018-02-15 08:58 | RAD REPORT ---
EXAM DESCRIPTION: CT - Thorax Wo Con - 02/15/2018 8:35 am CLINICAL HISTORY: Shortness of breath COMPARISON: Chest film February 14, CT chest April 2017 TECHNIQUE: Axial 5 mm thick images of the chest were obtained without IV contrast. All CT scans are performed using dose optimization technique as appropriate and may include automated exposure control or mA/KV adjustment according to patient size. FINDINGS: Large pleural effusion is present filling approximately 40% of the right hemithorax. Pleur al effusion has either enlarged or is significantly underestimated based on the prior day chest film. No mass or infiltrate of the aerated lung parenchyma. There is complete right lower lobe atelectasis and partial right middle lobe atelectasis. Pleural calcifications are present without a right-side p leural based mass. Small left pleural effusion is present. This has a more thickened rind when compar ed to the left. Loculation is suspected. There are pleural calcifications on the left. In the posteri or gutter on the left there is masslike opacification present 7 x 3 cm in size. This may simply be at electasis. Focal infiltrate is present. Lung parenchymal mass lesion is possible. No pneumothorax. No abnormal mediastinal or hilar masses or lymphadenopathy seen. No gross aortic or pulmonary artery finding suspected. Pericardial thickening and pericardial effusion are present but diminished from [place]. Dense vascular calcifications are present. Disc and bony degenerative changes are present without pat hologic bone process confirmed. No chest wall mass or abnormal axillary lymphadenopathy. IMPRESSION: Large right pleural effusion occupying approximately 40% of the right hemithorax. There is complete right lower lobe atelectasis and partial right middle lobe atelectasis. Small left pleural effusion is present. Size is smaller than seen in April; however, there are conchita nges now present suggesting the pleural effusion is now loculated. Masslike density 7 x 3 cm in the posterior gutter on the left may be simple atelectasis/scarred paren chyma. Focal pneumonia or even a focal lung mass lesion are possible. Pericardial thickening and pericardial effusion are present but improved from April.
[2018-02-15] MEDS ORDERED: PROMETHAZINE 25 MG/ML VIAL IV PRN (11:30)
--- NOTE | 2018-02-15 17:40 | P.PN ---
Subjective Date of Service: 02/15/18 Chief Complaint: SOB feels slightly better Physical Examination - Vital Signs Temperature: 97.4 F Blood Pressure: 142/63 Pulse: 59 Respirations: 18 Pulse Ox (%): 98 - Physical Exam General: Alert, In no apparent distress HEENT: Atraumatic, PERRLA, EOMI Neck: Supple, JVD not distended Respiratory: Clear to auscultation bilaterally, Normal air movement Cardiovascular: Regular rate/rhythm, Normal S1 S2 Gastrointestinal: Normal bowel sounds, No tenderness Musculoskeletal: No tenderness Integumentary: No rashes Neurological: Normal speech, Normal tone, Normal affect Lymphatics: No axilla or inguinal lymphadenopathy - Studies Medications List Reviewed: Yes Assessment And Plan - Current Problems (Diagnosis) (1) Pleural effusion Current Visit: Yes Status: Chronic (2) ESRD on hemodialysis Onset Date: 02/15/18 Current Visit: Yes Status: Acute (3) SOB (shortness of breath) Onset Date: 02/15/18 Current Visit: Yes Status: Acute (4) CHF (congestive heart failure) Onset Date: 10/26/17 Current Visit: No Status: Acute Qualifiers: Heart failure type: diastolic Heart failure chronicity: acute on chronic Qualified Code(s): I50.33 - Acute on chronic diastolic (congestive) heart failure (5) CAD (coronary artery disease) Onset Date: 06/11/17 Current Visit: No Status: Chronic Qualifiers: Coronary Disease-Associated Artery/Lesion type: [place] artery [place] vs. transplanted heart: [place] heart Associated angina: without angina Qualified Code(s): I25.10 - Atherosclerotic heart disease of [place] coronary artery without angina pectoris (6) HTN (hypertension) Onset Date: 06/11/17 Current Visit: No Status: Chronic Qualifiers: Hypertension type: essential hypertension Qualified Code(s): I10 - Essential (primary) hypertension - Plan SOB, more likely from a large right pleural effusion CAD, ? new onset A Fib on EKG HTN ESRD on HD Lung Mass PLANS: --Cont HD today --Hydralazine PRN IV --CT chest shows a large effusion --ECho repeated today --Cons Dr Gutierres RE: possible thoracentesis --Cons Dr Carmona new A fib
[2018-02-15] MEDS: ALBUMIN HUMAN 25% 50 ML IV SCH (19:18)
--- NOTE | 2018-02-16 04:54 | CON ---
Date of Consultation: 02/15/2018 Chief Complaint: Severe fatigue, dyspnea, congestive heart failure, fluid overload. History Of Present Illness: The patient presented to the hospital because of generalized weakness. He has end-stage renal disease and has been dialyzed 3 times per week on Thursday, Thursday, Thursday. He was complaining of progressively worse dyspnea, fatigue, and denies cough. Over the last 7 days, he has not been feeling well, although he denies PND, orthopnea and difficulty with ambulation and castañeda d dyspnea on exertion. The patient was admitted to the hospital for further workup. He had emergent dialysis done to control volume overload. During dialysis, blood pressure was in stable range. Ult rafiltration was adjusted to prevent intradialytic hypotension. The patient has history of coronary artery disease, end-stage renal disease, on dialysis. After dialysis, shortness of breath somewhat i mproved. CT scan showed pleural effusion previously as well as small amount of pericardial effusion. Review of Systems: Constitutional: The patient is complaining of generalized weakness. Denies syncope. Eyes: Denies vision changes. Ears, Nose, Mouth, and Throat: Denies sore throat or earache. Respiratory: Has severe dyspnea on exertion. Denies PND, orthopnea. GI: Denies nausea, vomiting. He is complaining of abdominal distention. Denies constipation, melen a, hematemesis. : Denies dysuria, hematuria. Musculoskeletal: Denies gout or joint swelling. All other systems reviewed and all are negative. Past Medical History: Coronary artery disease; angina; hypertension; hyperlipidemia; colon cancer; e nd-stage renal disease; skin cancer, squamous cell, left ear, face, and right hand; dyspnea; history of nephrotic range proteinuria; anasarca; colon removed in 2007; removal of the skin cancer from the ear, face, and right hand; right shoulder surgery; left fistula for dialysis access, right IJ tunnele d dialysis catheter. Family History: Father had heart disease. Sister has diabetes. Social History: Denies use tobacco, alcohol, or illicit drugs. Physical Examination: General: The patient is awake alert. Eyes: Anicteric sclerae. EOMI. Ears, Nose, Mouth, and Throat: Oral mucosa moist. No pallor. Neck: Supple. No JVD. No bruits. Lungs: Diminished breath sounds at bases, few rhonchi. Cardiovascular: S1, S2. No pericardial friction rub. Abdomen: Somewhat soft. No rebound. No guarding. Extremities: Slight edema in both ankles. Neurological: Moving extremities. Cranial nerves intact. Psychiatric: Alert and oriented x3. Normal affect. Laboratory Data: Sodium 145, potassium 3.8, BUN 64, creatinine 5.5, glucose 118, magnesium 2.2. WBC 6.3, hemoglobin 9.6, hematocrit 29.5, platelet count 337,000. Chest x-ray showed mild CHF, volume o verload, finding accentuated by shallow inspiration. No pneumothorax. There is lung base atelectasi s. Heart size is within normal range. CT scan of the chest without contrast was done today. There was large pleural effusion present, seeing approximately 40% of right hemithorax. Pleural effusion h as enlarged significantly, was underestimated on the chest x-ray. Lung parenchymal lesion is possibl e, but no pneumothorax. Small left pleural effusion was present. Mass like density 7 x 3 cm in post erior gutter of the left lung may represent atelectasis or scar tissue. Focal pneumonia, focal lung mass lesion needs to be ruled out. Pericardial thickening and pericardial effusion present, but impr kristyn since April. Impression And Plan: 1.Fluid overload, pleural effusion, possible pneumonia. The patient is undergoing workup with Mandi espinoza. 2.Intradialytic hypotension. The patient will require IV albumin for blood pressure control. 3.Fluid overload, dyspnea. The patient will require daily dialysis with ultrafiltration. The patie nt is scheduled to have treatment today to control volemia. 4.Anemia of chronic kidney disease. Monitor hemoglobin level. Adjust GUNJAN. 5.Renal osteodystrophy. Continue renal diet. Monitor phosphorus level. Adjust binders as needed. 6.History of pericardial effusion. The patient will have cardiac workup. 7.Questionable lung mass. The patient will require several workup, and pulmonary consultation was o btained. EB/MODL Voice ID: [id number] Report ID: [id number]
[2018-02-16 05:47] LABS: Absolute Lymphocytes (CBC) 1.3 K/uL (0.7-4.9); Absolute Monocytes 0.8 K/uL (0.1-1.3); Basophils % 0.7 % (0-1.3); Eosinophils % 5.3 % (0-4.4); Hematocrit 27.9 % (39.6-49.0); Lymphocytes % 20.7 % (15.3-44.8); MCH 29.7 pg (27.0-35.0); MCV 89.4 fL (80-100); MPV 6.9 fL (7.6-11.3); RBC Red Blood Cell Count 3.12 M/uL (4.33-5.43)
[2018-02-16 05:56] LABS: Albumin 2.5 g/dL (3.4-5.0); Bilirubin Total 0.4 mg/dL (0.2-1.0); Potassium 3.9 mmol/L (3.5-5.1)
[2018-02-16] MEDS: LISINOPRIL 10 MG TAB PO SCH (08:49)
[2018-02-16] MEDS: VITAMIN D 1000 UNIT TAB PO SCH (08:49)
[2018-02-16] MEDS: FOLIC ACID 1 MG TABLET PO SCH (08:49)
[2018-02-16] MEDS: CARVEDILOL 12.5 MG TAB PO SCH ×2 (08:50→21:51)
[2018-02-16] MEDS: ASPIRIN EC 81 MG TAB PO SCH (08:50)
[2018-02-16] MEDS: HYDRALAZINE HCL 25 MG TABLET PO SCH ×3 (08:50→21:00)
--- NOTE | 2018-02-16 09:28 | ECHO ---
HEIGHT: 5 ft 10 in WEIGHT: 154 lb 4 oz DATE OF STUDY: 02/15/[address]: Josesito Pitts MD 2-DIMENSIONAL: YES M.MODE: YES DOPPLER: YES COLOR FLOW: YES TDS: NO PORTABLE: NO DEFINITY: NO BUBBLE STUDY: NO DIAGNOSIS: CHEST PAIN CARDIAC HISTORY: CATHERIZATION: YES SURGERY: NO PROSTHETIC VALVE: NO PACEMAKER: NO MEASUREMENTS (cm) DIASTOLIC (NORMALS) SYSTOLIC (NORMALS) IVSd 1.3 (0.6-1.2) LA Diam 4.5 (1.9-4.0) LVEF 57% LVIDd 5.0 (3.5-5.7) LVIDs 3.5 (2.0-3.5) %FS 30% LVPWd 1.3 (0.6-1.2) Ao Diam 3.4 (2.0-3.7) 2 DIMENSIONAL ASSESSMENT: RIGHT ATRIUM: NORMAL LEFT ATRIUM: DILATED RIGHT VENTRICLE: NORMAL LEFT VENTRICLE: NORMAL TRICUSPID VALVE: NORMAL MITRAL VALVE: NORMAL PULMONIC VALVE: NORMAL AORTIC VALVE: NORMAL PERICARDIAL EFFUSION: TRACE AORTIC ROOT: NORMAL LEFT VENTRICULAR WALL MOTION: NORMAL DOPPLER/COLOR FLOW: MILD TRICUSPID REGURGITATION. RIGHT VENTRICULAR SYSTOLIC PRESSURE 40mmHg. COMMENTS: MILD PULMONARY HYPERTENSION. TRACE PERICARDIAL EFFUSION. NORMAL LEFT VENTRICULAR SIZE AND FUNCTION. NO WALL MOTION ABNORMALITY. LEFT ATRIAL ENLARGEMENT. NO THROMBUS. TECHNOLOGIST: Christine COLEMAN
[2018-02-16] MEDS: ALBUMIN HUMAN 25% 50 ML IV SCH ×2 (11:19→12:54)
--- NOTE | 2018-02-16 11:39 | P.CNS ---
Date of Consult: 02/16/18 Reason for Consult: Pleural effusion Chief Complaint: SOB History of Present Illness: Patient is 87 years of age on a chronic hemodialysis admitted with worsening dyspnea over the past week he has had dyspnea for a prolonged time. Has some discomfort on the left side denies any fever chills cough sputum or hemoptysis patient denies any edema of lower extremities Allergies doxycycline Allergy (Verified 12/30/17 09:19) Itching/Hives/Rash iodine [Iodine] Allergy (Verified 12/30/17 09:19) Anaphylaxis Home Medications: Aspirin [Aspirin EC 81 MG] 81 mg PO DAILY 10/11/17 Carvedilol [Coreg*] 12.5 mg PO BID 10/11/17 Docusate/Senna [Senokot-S*] 1 - 2 tab PO BEDTIME PRN PRN 10/11/17 Multivit-Minerals/Folic Acid [Men's Multivitamin Gummies] 1 tab PO DAILY Simvastatin [Zocor] 20 mg PO BEDTIME 10/11/17 Vit A/Vit C/Vit E/Zinc/Copper [Preservision Areds Softgel] 1 cap PO BID Folic Acid 1 mg PO DAILY #30 tablet 10/27/17 Amino Acids/Protein Hydrolys [Liquacel 100 Liquid Protein] 2 tbsp PO BREAKFAST 11/17/17 Hydralazine HCl 25 mg PO TID 12/30/17 Lisinopril [Prinivil*] 10 mg PO DAILY 12/30/17 Albuterol Sulfate [Albuterol Sulfate 0.083% Neb Soln] 2.5 mg IH Q4HP PRN Cholecalciferol (Vitamin D3) [Vitamin D3] 1,000 unit PO DAILY 02/14/18 - Past Medical/Surgical History Diabetic: No -: Angina -: CAD -: HTN -: Hylerlipidemia -: Colon Ca -: CKD Stage 3 -: skin Ca- squamous cell-left ear, face & right hand -: dyspnea -: nephrotic range proteinuria -: renal anasarca -: part of colon removed(2007) -: removal of skin Ca from left ear, face & right hand(different times) -: right shoulder surgery -: left fistula -: right pascual - Family History Father Medical History: Heart disease Sister Medical History: Diabetes - Social History Smoking Status: Unknown if ever smoked Alcohol use: No CD- Drugs: No Caffeine use: No Place of Residence: Home Review of Systems 10-point ROS is otherwise unremarkable General: Weakness Respiratory: Shortness of Breath Cardiovascular: Chest Pain Physical Examination Temp Pulse Resp BP Pulse Ox 97.0 F 68 16 120/58 L 98 02/16/18 08:00 02/16/18 08:00 02/16/18 08:00 02/16/18 08:00 02/16/18 08:00 General: Alert, Oriented x3 HEENT: Atraumatic Neck: Supple Respiratory: Diminished (Diminished air entry left worse than the right) Cardiovascular: No edema, Normal S1 S2 Gastrointestinal: Normal bowel sounds, Soft and benign - Problems (1) Pleural effusion Current Visit: Yes Status: Chronic Plan: Patient is 87 years of age admitted with worsening dyspnea he has bilateral pleural effusion right worse than the left no evidence of sepsis white count is normal patient has chronic renal failure BNP is daily 30,000 echocardiogram shows normal left ventricular function TSH done last year was normal 98% on 2 L patient is prominent layering on the right side on the CT scan I am not sure this time thoracentesis is going to help I have ordered bilateral decubitus of the chest and PA lateral chest x-ray continue with present treatment I suspect that he has atelectasis and is a left lower lung base which is visible on the CT scan
--- NOTE | 2018-02-16 14:02 | P.PN ---
Subjective Date of Service: 02/16/18 Chief Complaint: SOB Patient seen and examined at bedside with RN. Chart reviewed. Case discussed with nephrology. Currently awaiting recommendations from pulmonology. Patient this morning does complain of having some shortness of breath. States that he feels like there is a lot of fluid in his lungs. Review of Systems 10-point ROS is otherwise unremarkable Physical Examination - Vital Signs Temperature: 97.0 F Blood Pressure: 120/58 Pulse: 68 Respirations: 16 Pulse Ox (%): 98 - Physical Exam General: Alert, Oriented x3, Mild distress HEENT: Atraumatic, PERRLA, EOMI Neck: Supple, JVD not distended Respiratory: Normal air movement, Diminished, Rhonchi/gurgles Cardiovascular: Regular rate/rhythm, Normal S1 S2 Gastrointestinal: Normal bowel sounds, Soft and benign, Non-distended, No tenderness Musculoskeletal: No tenderness Integumentary: No rashes Neurological: Normal speech, Normal tone, Normal affect Lymphatics: No axilla or inguinal lymphadenopathy - Studies Medications List Reviewed: Yes Assessment And Plan - Current Problems (Diagnosis) (1) Acute respiratory failure Onset Date: 10/12/17 Current Visit: No Status: Acute Plan: acute respiratory failure 2.2 to Volume overload vs pleural effusion vs Atelectasis -oxygen as needed. Wean as tolerated -pulmonology consulted. -Geraldo Chest PA and lateral -possible thoracentesis Qualifiers: Respiratory failure complication: hypoxia Qualified Code(s): J96.01 - Acute respiratory failure with hypoxia (2) ESRD on hemodialysis Onset Date: 02/15/18 Current Visit: Yes Status: Chronic (3) CHF (congestive heart failure) Onset Date: 10/26/17 Current Visit: No Status: Chronic Qualifiers: Heart failure type: diastolic Heart failure chronicity: acute on chronic Qualified Code(s): I50.33 - Acute on chronic diastolic (congestive) heart failure (4) History of cancer Onset Date: 06/11/17 Current Visit: No Status: Chronic (5) Anemia Current Visit: No Status: Chronic Qualifiers: Anemia type: due to chronic kidney disease Chronic kidney disease stage: on chronic dialysis Qualified Code(s): N18.6 - End stage renal disease; D63.1 - Anemia in chronic kidney disease; Z99.2 - Dependence on renal dialysis (6) CAD (coronary artery disease) Onset Date: 06/11/17 Current Visit: No Status: Chronic Qualifiers: Coronary Disease-Associated Artery/Lesion type: [place] artery [place] vs. transplanted heart: [place] heart Associated angina: without angina Qualified Code(s): I25.10 - Atherosclerotic heart disease of [place] coronary artery without angina pectoris (7) HTN (hypertension) Onset Date: 06/11/17 Current Visit: No Status: Chronic Qualifiers: Hypertension type: essential hypertension Qualified Code(s): I10 - Essential (primary) hypertension (8) Hyperlipidemia Onset Date: 06/11/17 Current Visit: No Status: Chronic Qualifiers: Hyperlipidemia type: mixed hyperlipidemia Qualified Code(s): E78.2 - Mixed hyperlipidemia (9) Pressure ulcer Current Visit: No Status: Chronic Qualifiers: Qualified Code(s): L89.92 - Pressure ulcer of unspecified site, stage 2 - Plan Currently awaiting clinical improvement at this time. Patient is awaiting pulmonology consult. Nephrology will be doing dialysis here in the hospital daily for volume overload. Will follow up with pulmonology on further recommendations at this time. Discharge Plan: Other Plan to discharge in: 72 Hours - Code Status/Comfort Care Code Status Assessed: Yes Critical Care: No
--- NOTE | 2018-02-16 16:43 | RAD REPORT ---
EXAM DESCRIPTION: RAD - Chest Pa And Lat (2 Views) - 02/16/2018 4:31 pm CLINICAL HISTORY: Pleural effusion Chest pain. COMPARISON: Chest Single View dated 02/14/2018; Chest Single View dated 11/18/2017; Chest Pa And Lat (2 Views) dated 11/17/2017; Chest Single View dated 10/27/2017 FINDINGS: Moderate left and a small right pleural effusion is noted. Mild interstitial pulmonary tee ma. The heart is moderately enlarged in size. No displaced fractures. Aortic atherosclerosis. IMPRESSION: Moderate left and a small right pleural effusion is noted. Mild CHF.
--- NOTE | 2018-02-16 17:13 | RAD REPORT ---
EXAM DESCRIPTION: RAD - Chest Lateral Decubitus - 02/16/2018 4:54 pm CLINICAL HISTORY: sob Pleural effusions. COMPARISON: Chest Pa And Lat (2 Views) dated 02/16/2018 FINDINGS: Left side up decubitus view shows a freely flowing large right pleural effusion measuring 6 cm in maximum thickness. Right-side up decubitus view shows a small to moderate-sized loculated lef t pleural effusion measuring 2 cm in maximum thickness.
[2018-02-16 18:49] VITALS: BMI 21.8
[2018-02-16] MEDS ORDERED: EPOETIN ALFA 10,000 UNIT/ML VIAL IV SCH (21:45)
--- NOTE | 2018-02-17 | CON ---
Date of Consultation: 02/16/[address] Pitts's service on 02/14/2018. I saw the patient on 02/16/2018. Reason For Consultation: New-onset atrial fibrillation. History Of Present Illness: Mr. Thomas is an 87-year-old white male. He has end-stage renal disease, on hemodialysis. He has history of colon cancer, anemia, coronary artery disease, hypertension, dys lipidemia, and COPD. He is followed from a renal standpoint by Dr. Hernandez. He basically came in for v olume overload and has been getting dialysis daily. While he is in the hospital, he was noted to go into atrial fibrillation at a rate of 60 without any symptoms. Past Medical History: As stated above. Allergies: HE IS ALLERGIC TO IODINE AND DOXYCYCLINE. Review of Systems: Negative. Social History: Negative. Family History: Negative. Medications At Home: Include multiple inhalers, aspirin, Coreg, lisinopril, Zocor, and hydralazine. Physical Examination: General: He appeared his stated age. Vital Signs: Stable. Atrial fibrillation, rate of 60, afebrile. HEENT: Negative. Neck: Supple. No bruit or lymphadenopathy or JVD. Chest: Clear. Cardiac: Revealed an irregularly irregular rhythm and rate without any murmurs, gallops, or rubs. Abdomen: Benign. Extremities: Revealed no clubbing, cyanosis. He had trace edema. Laboratory Data: His creatinine was 5.5, hemoglobin 9.4, troponin 0.24. BNP was 29,915. Impression And Plan: 1.New-onset atrial fibrillation, rate control, asymptomatic. The patient has anemia of chronic dar l disease, history of colon cancer. Not a candidate for anticoagulation. 2.Chronic diastolic congestive heart failure. Another echocardiogram is pending. 3.Coronary artery disease, stable. 4.Hypertension, that is stable. 5.Dyslipidemia, that is controlled. 6.Chronic obstructive pulmonary disease. The patient's chest x-ray showed moderate left pleural eff usion. This seems to be loculated. I am not so sure if there is any plan for workup after this left pleural effusion with a possible mass. There is 1 more reason not to give him any anticoagulation. I will leave the pulmonary workup up to primary admitting physician and pulmonary consult. BERNICE/MORENA Voice ID: [id number] Report ID: [id number]
--- NOTE | 2018-02-17 02:26 | PN ---
Date of Progress Note: 02/16/2018 Subjective: The patient was admitted for shortness of breath, found to have right-sided clear effusi on with a questionable mass. The patient over volume. Physical Examination: Vital Signs: When I saw the patient blood pressure 113/56, pulse of 62. Chest: Decreased entry on the right base. Crackles on the upper zone. Heart: S1, S2. Systolic murmur. Abdomen: Soft, nontender. Extremities: Trace edema. Laboratory Data: H and H 9.3/27.9. Sodium 139, potassium 3.9, bicarb 30, BUN 32, creatinine 3.4, ca lcium 8.6. BNP 52106. Medications: Current medications the patient is on include: 1.Aspirin. 2.Promethazine. 3.Albumin. 4.Hydralazine 25 t.i.d. 5.Lisinopril. Assessment And Plan: 1.End-stage renal disease, over volume. I am going to continue the patient on daily dialysis. We w ill alternate between sequential and regular dialysis. 2.Over volume. As above we will continue diuresis and ultrafiltration. 3.Hypertension. Given the low blood pressure, I am going to discontinue hydralazine to utilize the blood pressure for more ultrafiltration and I am going to discontinue lisinopril. We will monitor th e patient off blood pressure medication. 4.Clear effusion. We will follow up with Pulmonary. We will get thoracocentesis. 5.Questionable lung mass/atelectasis. We will follow up with Pulmonary. ILDA Voice ID: [id number] Report ID: [id number]
[2018-02-17] MEDS ORDERED: MORPHINE 2 MG/ML SYR IV PRN (03:16)
[2018-02-17] MEDS: CARVEDILOL 12.5 MG TAB PO SCH ×2 (09:00→20:54)
[2018-02-17] MEDS: FOLIC ACID 1 MG TABLET PO SCH (10:04)
[2018-02-17] MEDS: VITAMIN D 1000 UNIT TAB PO SCH (10:04)
[2018-02-17] MEDS: ASPIRIN EC 81 MG TAB PO SCH (10:16)
--- NOTE | 2018-02-17 13:57 | P.PN ---
Subjective Date of Service: 02/17/18 Chief Complaint: SOB Patient seen and examined at bedside with RN. Chart reviewed. Case discussed with nephrology. Currently states that has been feeling better than before. Pulmonology repeated x-ray shows improvement no plans for thoracentesis Review of Systems 10-point ROS is otherwise unremarkable Physical Examination - Vital Signs Temperature: 97.8 F Blood Pressure: 141/61 Pulse: 60 Respirations: 18 Pulse Ox (%): 100 - Physical Exam General: Alert, Oriented x3, Acute distress HEENT: Atraumatic, PERRLA, EOMI Neck: Supple, JVD not distended Respiratory: Normal air movement, Expiratory wheezes, Inspiratory wheezes Cardiovascular: Regular rate/rhythm, Normal S1 S2 Gastrointestinal: Normal bowel sounds, No tenderness Musculoskeletal: No tenderness Integumentary: No rashes Neurological: Normal speech, Normal tone, Normal affect Lymphatics: No axilla or inguinal lymphadenopathy - Studies Microbiology Data (last 24 hrs): 02/15/18 03:50 Clean Catch Urine Moore Count - Final 02/15/18 03:50 Clean Catch Urine - Final Medications List Reviewed: Yes Assessment And Plan - Current Problems (Diagnosis) (1) Acute respiratory failure Onset Date: 10/12/17 Current Visit: No Status: Acute Plan: acute respiratory failure 2.2 to Volume overload vs Atelectasis -oxygen as needed. Wean as tolerated -pulmonology consulted. Recommendations appreciated this time -no plans for thoracentesis this chest x-ray shows improvement -patient improving slowly as well today. Qualifiers: Respiratory failure complication: hypoxia Qualified Code(s): J96.01 - Acute respiratory failure with hypoxia (2) ESRD on hemodialysis Onset Date: 02/15/18 Current Visit: Yes Status: Chronic Plan: Continue on dialysis for volume overload -will follow up with nephrology regarding discharge planning -patient is Thursday schedule. (3) CHF (congestive heart failure) Onset Date: 10/26/17 Current Visit: No Status: Chronic Qualifiers: Heart failure type: diastolic Heart failure chronicity: acute on chronic Qualified Code(s): I50.33 - Acute on chronic diastolic (congestive) heart failure (4) History of cancer Onset Date: 06/11/17 Current Visit: No Status: Chronic (5) Anemia Current Visit: No Status: Chronic Qualifiers: Anemia type: due to chronic kidney disease Chronic kidney disease stage: on chronic dialysis Qualified Code(s): N18.6 - End stage renal disease; D63.1 - Anemia in chronic kidney disease; Z99.2 - Dependence on renal dialysis (6) CAD (coronary artery disease) Onset Date: 06/11/17 Current Visit: No Status: Chronic Qualifiers: Coronary Disease-Associated Artery/Lesion type: [place] artery [place] vs. transplanted heart: [place] heart Associated angina: without angina Qualified Code(s): I25.10 - Atherosclerotic heart disease of [place] coronary artery without angina pectoris (7) HTN (hypertension) Onset Date: 06/11/17 Current Visit: No Status: Chronic Qualifiers: Hypertension type: essential hypertension Qualified Code(s): I10 - Essential (primary) hypertension (8) Hyperlipidemia Onset Date: 06/11/17 Current Visit: No Status: Chronic Qualifiers: Hyperlipidemia type: mixed hyperlipidemia Qualified Code(s): E78.2 - Mixed hyperlipidemia (9) Pressure ulcer Current Visit: No Status: Chronic Qualifiers: Qualified Code(s): L89.92 - Pressure ulcer of unspecified site, stage 2 - Plan Currently awaiting clinical improvement at this time. Will monitor for next 24- 48 hr for worsening of his respiratory failure. If no worsening noted that patient can be safely discharged home. Will get physical therapy consultation at this time as well. Discharge Plan: Home Plan to discharge in: 48 Hours - Code Status/Comfort Care Code Status Assessed: Yes Critical Care: No
--- NOTE | 2018-02-17 16:23 | PN ---
Date of Progress Note: 02/17/2018 Subjective: The patient, according to him, doing better. No significant the nasal cannul a. The patient seen by Dr. Sharma, Pulmonary. Want to watch currently. No intervention. No thor acocentesis. The patient is scheduled for dialysis today. Objective: Vital Signs: Blood pressure 141/61, pulse of 60. Chest decreased entry on the right base. Heart: S1, S2. Systolic murmur. Abdomen: Soft. Nontender. Extremity: No edema. Laboratory Data: H and H 9.3/27.9. Sodium 139, potassium 3.9, bicarb 30, BUN 32, creatinine 3.4, GF R of 17. Current Medications: The patient on its include: 1.Aspirin. 2.Promethazine. 3.Epogen. 4.Carvedilol 12.5 b.i.d. 5.Folic acid. 6.Cholecalciferol. Assessment And Plan: 1.End-stage renal disease with over volume status. We will do extra treatment today just sequential of 2 hours. The patient will be cleared to be discharged after dialysis. 2.Hypertension, controlled optimal. Continue current medication. 3.Secondary hyperparathyroidism, stable. 4.Anemia. Continue Epogen. 5.Pleural effusion. Follow up with Pulmonary. CHRISTOPHER/MORENA Voice ID: [id number] Report ID: [id number]
[2018-02-17 19:40] LABS: HBsAG Nonreactive (Nonreactive)
[2018-02-17 21:44] VITALS: O2SAT 99
[2018-02-18] MEDS: FOLIC ACID 1 MG TABLET PO SCH (08:07)
[2018-02-18] MEDS: CARVEDILOL 12.5 MG TAB PO SCH (08:07)
[2018-02-18] MEDS: VITAMIN D 1000 UNIT TAB PO SCH (08:07)
[2018-02-18] MEDS: ASPIRIN EC 81 MG TAB PO SCH (08:08)
--- NOTE | 2018-02-18 15:05 | P.DS ---
Admission Date: 02/16/18 Discharge Date: 02/18/18 Disposition: ROUTINE DISCHARGE Discharge Condition: GOOD Reason for Admission: SOB Consultations: Nephrology Pulmonology - Problems (1) Acute respiratory failure Onset Date: 10/12/17 Status: Acute Qualifiers: Respiratory failure complication: hypoxia Qualified Code(s): J96.01 - Acute respiratory failure with hypoxia (2) ESRD on hemodialysis Onset Date: 02/15/18 Status: Chronic (3) CHF (congestive heart failure) Onset Date: 10/26/17 Status: Chronic Qualifiers: Heart failure type: diastolic Heart failure chronicity: acute on chronic Qualified Code(s): I50.33 - Acute on chronic diastolic (congestive) heart failure (4) History of cancer Onset Date: 06/11/17 Status: Chronic (5) Anemia Status: Chronic Qualifiers: Anemia type: due to chronic kidney disease Chronic kidney disease stage: on chronic dialysis Qualified Code(s): N18.6 - End stage renal disease; D63.1 - Anemia in chronic kidney disease; Z99.2 - Dependence on renal dialysis (6) CAD (coronary artery disease) Onset Date: 06/11/17 Status: Chronic Qualifiers: Coronary Disease-Associated Artery/Lesion type: [place] artery [place] vs. transplanted heart: [place] heart Associated angina: without angina Qualified Code(s): I25.10 - Atherosclerotic heart disease of [place] coronary artery without angina pectoris (7) HTN (hypertension) Onset Date: 06/11/17 Status: Chronic Qualifiers: Hypertension type: essential hypertension Qualified Code(s): I10 - Essential (primary) hypertension (8) Hyperlipidemia Onset Date: 06/11/17 Status: Chronic Qualifiers: Hyperlipidemia type: mixed hyperlipidemia Qualified Code(s): E78.2 - Mixed hyperlipidemia (9) Pressure ulcer Status: Chronic Qualifiers: Qualified Code(s): L89.92 - Pressure ulcer of unspecified site, stage 2 Brief History of Present Illness: 87 y/o man with CAD, ESRD on HD who presents with progressive SOB, worseing in the past 2 days. He has no chest pain. He has no fever. He had similar problems in the recent past. He states that urgent HD did not help much of his SOB. CT showed pleural effusions before, as well as small amount pericardial effusions. Hospital Course: Patient remained stable while here in the hospital Patient initially was admitted to the hospital for dyspnea most likely secondary to volume overload. Initially patient was found to have right pleural effusion along with small left pleural effusion pulmonology was consulted for possible thoracentesis who recommended the patient be started on IV Lasix and have emergent dialysis here in the hospital. Patient did have improvement in his dyspnea after having hemodialysis. Then patient had chest x-ray which showed improvement in his pleural effusion at that time. No further procedure was required to help with patient's dyspnea or profusion. Patient is a end-stage renal disease and I mentioned before received dialysis here in the hospital and had no complications from it. Patient then was working with physical therapy and ambulated 150 feet with rolling walker and thus was discharged home under stable condition. Patient also had an x-ray with its risks concerning for a long months however pulmonology stated that it is most likely atelectasis and will be followed up in the clinic in about 1-2 weeks. Patient was notified about followup appointments and was asked to continue taking all his medications at home and then was discharged home under stable condition Vital Signs/Physical Exam: Temp Pulse Resp BP Pulse Ox 97.1 F 68 17 164/72 H 100 02/18/18 08:00 02/18/18 08:07 02/18/18 08:00 02/18/18 08:07 02/18/18 08:00 General: Alert, In no apparent distress HEENT: Atraumatic, PERRLA, EOMI Neck: Supple, JVD not distended Respiratory: Clear to auscultation bilaterally, Normal air movement Cardiovascular: Regular rate/rhythm, Normal S1 S2 Gastrointestinal: Normal bowel sounds, No tenderness Musculoskeletal: No tenderness Integumentary: No rashes Neurological: Normal speech, Normal tone, Normal affect Lymphatics: No axilla or inguinal lymphadenopathy Laboratory Data at Discharge: WBC 6.4 K/uL (4.3-10.9) 02/16/18 05:12 Hgb 9.3 g/dL (13.6-17.9) L 02/16/18 05:12 Hct 27.9 % (39.6-49.0) L 02/16/18 05:12 Plt Count 293 K/uL (152-406) 02/16/18 05:12 PT 15.5 SECONDS (9.5-12.5) H 02/14/18 14:03 INR 1.31 02/14/18 14:03 APTT 36.7 SECONDS (24.3-36.9) 02/14/18 14:03 Sodium 139 mmol/L (136-145) 02/16/18 05:12 Potassium 3.9 mmol/L (3.5-5.1) 02/16/18 05:12 BUN 32 mg/dL (7-18) H 02/16/18 05:12 Creatinine 3.40 mg/dL (0.55-1.3) H 02/16/18 05:12 Glucose 88 mg/dL (74-106) 02/16/18 05:12 Magnesium 2.2 mg/dL (1.8-2.4) 02/14/18 14:03 Total Bilirubin 0.4 mg/dL (0.2-1.0) 02/16/18 05:12 AST 13 U/L (15-37) L 02/16/18 05:12 ALT 16 U/L (12-78) 02/16/18 05:12 Alkaline Phosphatase 93 U/L (45-117) 02/16/18 05:12 Home Medications: Aspirin [Aspirin EC 81 MG] 81 mg PO DAILY 10/11/17 Carvedilol [Coreg*] 12.5 mg PO BID 10/11/17 Docusate/Senna [Senokot-S*] 1 - 2 tab PO BEDTIME PRN PRN 10/11/17 Multivit-Minerals/Folic Acid [Men's Multivitamin Gummies] 1 tab PO DAILY Simvastatin [Zocor] 20 mg PO BEDTIME 10/11/17 Vit A/Vit C/Vit E/Zinc/Copper [Preservision Areds Softgel] 1 cap PO BID Folic Acid 1 mg PO DAILY #30 tablet 10/27/17 Amino Acids/Protein Hydrolys [Liquacel 100 Liquid Protein] 2 tbsp PO BREAKFAST 11/17/17 Hydralazine HCl 25 mg PO TID 12/30/17 Lisinopril [Prinivil*] 10 mg PO DAILY 12/30/17 Albuterol Sulfate [Albuterol Sulfate 0.083% Neb Soln] 2.5 mg IH Q4HP PRN Cholecalciferol (Vitamin D3) [Vitamin D3] 1,000 unit PO DAILY 02/14/18 Patient Discharge Instructions: Please f.u with Pulomonology and Nephrology in 1 to 2 week post discharge. No New medicaiton. COntinue all home medication. You will need to See Dr Aviles in the office to repeat a Chest Xray Diet: Regular Activity: Ad ashley Followup: Denis Sharma MD [ACTIVE - CAN ADMIT] - 1 Week (Call office to schedule an appointment) Reymundo Marie MD [ACTIVE - CAN ADMIT] - 1 Week (Call office to schedule an appointment) Jonathan Carmona MD [ACTIVE - CAN ADMIT] - 1-2 Weeks (Call office to schedule an appointment)
[2018-02-18 17:52] VITALS: BP 124/58; TEMP 97.5
--- NOTE | 2018-02-19 04:24 | PN ---
Date of Progress Note: 02/18/2018 Subjective: The patient was admitted with respiratory distress secondary to over volume, pleural eff usion. Seen by Pulmonary, who will monitor patient for the time being. Physical Examination: Vital Signs: Blood pressure 124/58, pulse of 57. Chest: Clear on the upper zone. Decreased air entry, bilateral base. Heart: S1, S2. Regular. Systolic murmur. Abdomen: Soft, nontender. Extremities: No edema. Laboratory Data: H and H 9.3/27.9. Sodium 139, potassium 3.9, bicarb 30, BUN 32, creatinine 3.4, ca lcium 8.6. Medications: Current medications the patient on include; 1.Aspirin. 2.Albuterol. 3.Cholecalciferol. 4.Epogen. 5.Promethazine. Assessment And Plan: 1.End-stage renal disease. We will continue the patient on dialysis. He is due for dialysis tomorr ow. 2.Hypertension, controlled, optimal. 3.Pleural effusion. No intervention for the time being. 4.Congestive heart failure. Started to be in normal volume. Right now we will continue to monitor. The patient cleared from the renal standpoint for discharge planning. ILDA Voice ID: [id number] Report ID: [id number]
== END 2018-02-18 14:12 | disposition home health service (06) | DRG 291 ==
LOC: ER 12:59 → ERHOLD 15:05 → 2ND 18:19 → OBSVTOIN 02-16 21:58
PROVIDERS: ADMIT Internal Medicine Hematology & Oncology; ATTEND Family Medicine
PROC: 5A1D70Z Performance of Urinary Filtration, Intermittent, Less than 6 Hours Per Day (ICD-10-PCS; principal; 2018-02-14)
PROC: 5A1D70Z Performance of Urinary Filtration, Intermittent, Less than 6 Hours Per Day (ICD-10-PCS; 2018-02-15)
PROC: 5A1D70Z Performance of Urinary Filtration, Intermittent, Less than 6 Hours Per Day (ICD-10-PCS; 2018-02-16)
PROC: 5A1D70Z Performance of Urinary Filtration, Intermittent, Less than 6 Hours Per Day (ICD-10-PCS; 2018-02-17)
DX: I13.2 Hypertensive heart and chronic kidney disease with heart failure and with stage 5 chronic kidney disease, or end stage renal disease (principal); J96.01 Acute respiratory failure with hypoxia; N18.6 End stage renal disease; I50.33 Acute on chronic diastolic (congestive) heart failure; N25.81 Secondary hyperparathyroidism of renal origin; J98.11 Atelectasis; I25.10 Atherosclerotic heart disease of native coronary artery without angina pectoris; E78.5 Hyperlipidemia, unspecified; I95.3 Hypotension of hemodialysis; D63.1 Anemia in chronic kidney disease; N25.0 Renal osteodystrophy; L89.92 Pressure ulcer of unspecified site, stage 2; Z99.2 Dependence on renal dialysis
CPT/HCPCS: 36415; 71045; 71046; 71250; 80048; 80053; 81003; 81015; 82550; 82553; 83735; 83880; 84484; 85025; 85610; 85730; 86317; 86704; 86706; 87086; 87088; 87340; 90935; 93005; 93306; 97163; 99285; G0257; G0378; J2550; P9047

== ENCOUNTER 2018-03-18 07:30 | Day surgery (SDC) | payer OTHER ==
[2018-03-17 15:25] LABS: Hematocrit 24.2 % (39.6-49.0)
--- OUTSIDE RECORDS SUMMARY | 2018-03-18 07:38 | XMS REPORT | Clinical Summary ---
:1930 Author Organization [facility] Address [address] [place] [address] Care Team Providers Name Role Phone Asked, [...] Take 1 tablet Active ACID/MULTIVIT,IRON, by mouth SHIPPING RECEIVING MANAGER (CENTRUM daily. ORAL) furosemide (LASIX) Take 80 [...] EXTREMITY MD Casey AV FISTULA CREATION after 03/17/2017 Social History Tobacco Use Types Packs/Day Years Used Date Never Smoker Smokeless Tobacco: Never Used Alcohol Use Drinks/Week oz/Week Comments No Sex Assigned at Date Recorded Not on file Last Filed Vital Signs Vital Sign Reading Time Taken Blood Pressure 168/72 08/12/2017 6:17 PM INDUSTRIAL HEALTH ENGINEER Pulse 64 08/12/2017 6:17 PM INDUSTRIAL HEALTH ENGINEER Temperature 37.1 C (98.7 F) 08/12/2017 6:17 PM INDUSTRIAL HEALTH ENGINEER Respiratory Rate 16 08/12/2017 6:17 PM INDUSTRIAL HEALTH ENGINEER Oxygen Saturation 96% 08/12/2017 6:17 PM INDUSTRIAL HEALTH ENGINEER Inhaled Oxygen Concentration - - Weight 81.5 [...] Procedure Name Priority Date/Time Associated Diagnosis Comments VT AN ELECTIVE Routine 08/12/2017 3:10 PM SUPRAGLOTTIC AIRWAY INDUSTRIAL HEALTH ENGINEER Procedure Note - Wilmer Contreras MD - 08/12/2017 3:10 PM INDUSTRIAL HEALTH ENGINEER Airway Performed by: DARIA HUERTA Authorized by: DARIA HUERTA Location: OR Urgency: Elective Difficult Airway: No Anesthesiologist: DARIA HUERTA Performed by: anesthesiologist Preoxygenated with 100% O2: Yes C-spine Precautions Maintained Throughout: Yes Mask Ventilation: Easy mask Final Airway Type: Supraglottic airway Final LMA: Classic LMA Size: 4 Number of Attempts at Approach: 1 CREATION, AV FISTULA 08/12/2017 2:45 PM INDUSTRIAL HEALTH ENGINEER End stage renal disease Case Notes C-ARM Special Needs C-ARM HEMOGLOBIN, SYRINGE STAT 08/12/2017 11:45 AM INDUSTRIAL HEALTH ENGINEER GLUCOSE LEVEL, SYRINGE STAT 08/12/2017 11:45 AM INDUSTRIAL HEALTH ENGINEER POTASSIUM, SYRINGE STAT 08/12/2017 11:45 AM INDUSTRIAL HEALTH ENGINEER after 03/17/2017 Results Potassium, syringe (08/12/2017 11:45 AM) Potassium, syringe 4.7 3.5 - 5.0 mEq/L [facility] DEPARTMENT OF PATHOLOGY AND GENOMIC MEDICINE Specimen Blood Performing Organization Address City/[facility] Number [facility] DEPARTMENT OF PATHOLOGY AND [address] [place] [phone] GENOMIC MEDICINE Hemoglobin, syringe (08/12/2017 11:45 AM) Hemoglobin, syringe 9.3 (L) 14.0 - 18.0 g/dL [facility] DEPARTMENT OF PATHOLOGY AND GENOMIC MEDICINE Specimen Blood Performing Organization Address City/[facility] Phone Number [facility] DEPARTMENT OF PATHOLOGY AND [address] [place] [phone] GENOMIC MEDICINE Glucose level, syringe (08/12/2017 11:45 AM) Glucose, syringe 96 65 - 99 mg/dL [facility] DEPARTMENT OF PATHOLOGY AND GENOMIC MEDICINE Specimen Blood Performing Organization Address City/[facility] Phone Number [facility] DEPARTMENT OF PATHOLOGY AND [address] [place], [place] [phone] [employer] MEDICINE after 03/17/2017 Insurance Payer Benefit Plan / Group Subscriber ID Type Phone Address MEDICARE MEDICARE PART A AND B xxxxxxxxxx Medicare [place], [place] AETNA AETNA PPO OPEN CHOICE xxxxxxxxx PPO [employer] Self 1930 Home: [address] [facility] [phone] [place] [address]
[2018-03-18] MEDS ORDERED: NA CHLORIDE 0.9% 250 ML ONE ×2 (08:09→12:32)
[2018-03-18 08:59] VITALS: BMI 21.9
[2018-03-18 15:36] VITALS: BP 144/55; TEMP 97.5; O2SAT 100
[2018-03-18 17:04] LABS: Hematocrit 28.8 % (39.6-49.0)
== END 2018-03-18 14:30 | disposition home or self-care (01) ==
LOC: DS 07:30
PROVIDERS: ATTEND Internal Medicine Nephrology
DX: N18.6 End stage renal disease (principal); D63.1 Anemia in chronic kidney disease
CPT/HCPCS: 36415; 36430; 84132; 85014 ×2; 85018 ×2; 86850; 86900; 86901; P9016 ×2

== ENCOUNTER 2018-04-30 12:43 | Observation (INO) | payer OTHER ==
--- OUTSIDE RECORDS SUMMARY | 2018-04-30 12:45 | XMS REPORT | Clinical Summary ---
:1930 Author Organization [facility] Address [address] [place] [address] Care Team Providers Name Role Phone Asked, No Pcp Primary Care Provider Unavailable Allergies Active Allergy Reactions Severity Noted Date Comments Iodine Hives High 08/12/2017 Medications Medication Sig Dispensed Refills Start Date End Date Status benzonatate Take 100 mg by 0 06/26/2017 Active (TESSALON) 100 MG mouth as needed capsule for cough. carvedilol (COREG) Take 25 mg by 0 06/18/2017 Active 25 MG tablet mouth 2 (two) times a day with meals. ferrous sulfate Take 325 mg by 0 Active 325 (65 FE) MG mouth daily tablet with breakfast. amLODIPine Take 5 mg by 0 Active (NORVASC) 5 mg mouth 2 (two) tablet times a day. simvastatin Take 20 mg by 0 Active (ZOCOR) 20 MG mouth nightly. tablet aspirin (ECOTRIN) Take 81 mg by 0 Active 81 MG enteric mouth daily. coated tablet VIT Take 1 tablet 0 Active C/E/ZN/COPPR/LUTEI by mouth 2 N/ZEAXAN (two) times a (PRESERVISION day. AREDS 2 ORAL) FOLIC Take 1 tablet 0 Active ACID/MULTIVIT,IRON by mouth daily. ,VINER OPERATOR (CENTRUM ORAL) furosemide (LASIX) Take 80 mg by 0 Active 40 mg tablet mouth daily. Pt normally takes PRN but has been taking daily for the last 2 weeks due to fluid build up SENNOSIDES/DOCUSAT Take 2 tablets 0 Active E SODIUM by mouth as (SENOKOT-S ORAL) needed. clopidogrel 0 07/29/2017 08/12/2017 Discontinued (PLAVIX) 75 mg tablet HEMOCYTE-PLUS 106 0 06/26/2017 08/12/2017 Discontinued mg iron- 1 mg capsule doxazosin 0 06/28/2017 08/12/2017 Discontinued (CARDURA) 2 MG tablet acetaminophen-code Take 1 tablet 12 tablet 0 08/12/2017 08/15/2017 ine (TYLENOL WITH by mouth every CODEINE #3) [...] not on chronic dialysis (Primary Dx) 08/12/2017 Anesthesia Event General Surgery Daria Huerta MD 08/12/2017 Surgery General Surgery Kee Curran Left UPPER EXTREMITY MD Casey AV FISTULA CREATION 08/12/2017 Hospital Encounter General Surgery Kee Curran MD after 04/29/2017 Social History Tobacco Use Types Packs/Day Years Used Date Never Smoker Smokeless Tobacco: Never Used Alcohol Use Drinks/Week oz/Week Comments No Sex Assigned at Date Recorded Not on file Job Start Date Occupation Industry Not on file Not on file Not on file Travel History Travel Start Travel End No recent travel history available. Last Filed Vital Signs Vital Sign Reading Time Taken Blood Pressure 168/72 08/12/2017 6:17 PM ANESTHESIA TECHNICIAN Pulse 64 08/12/2017 6:17 PM ANESTHESIA TECHNICIAN Temperature 37.1 C (98.7 F) 08/12/2017 6:17 PM ANESTHESIA TECHNICIAN Respiratory Rate 16 08/12/2017 6:17 PM ANESTHESIA TECHNICIAN Oxygen Saturation 96% 08/12/2017 6:17 PM ANESTHESIA TECHNICIAN Inhaled Oxygen Concentration - - Weight 81.5 kg (179 lb 9.6 oz) 10/08/2017 2:56 PM CDT Height 177.8 cm (5' 10") 10/08/2017 2:56 PM CDT Body Mass Index 25.77 10/08/2017 2:56 PM CDT Plan of Treatment Health Maintenance Due Date Last Done Comments SHINGRIX VACCINE (1 of 2) 1980 ZOSTER VACCINE 1990 PNEUMOCOCCAL POLYSACCHARIDE VACCINE AGE 65 AND OVER 1995 PNEUMOCOCCAL-13 1995 INFLUENZA VACCINE 01/06/2018 Procedures Procedure Name Priority Date/Time Associated Diagnosis Comments ND AN ELECTIVE Routine 08/12/2017 3:10 PM SUPRAGLOTTIC AIRWAY ANESTHESIA TECHNICIAN Procedure Note - Wilmer Contreras MD - 08/12/2017 3:10 PM ANESTHESIA TECHNICIAN Airway Performed by: DARIA HUERTA Authorized by: DARIA HUERTA Location: OR Urgency: Elective Difficult Airway: No Anesthesiologist: DARIA HUERTA Performed by: anesthesiologist Preoxygenated with 100% O2: Yes C-spine Precautions Maintained Throughout: Yes Mask Ventilation: Easy mask Final Airway Type: Supraglottic airway Final LMA: Classic LMA Size: 4 Number of Attempts at Approach: 1 CREATION, AV FISTULA 08/12/2017 2:45 PM ANESTHESIA TECHNICIAN End stage renal disease Case Notes C-ARM Special Needs C-ARM HEMOGLOBIN, SYRINGE STAT 08/12/2017 11:45 AM ANESTHESIA TECHNICIAN GLUCOSE LEVEL, SYRINGE STAT 08/12/2017 11:45 AM ANESTHESIA TECHNICIAN POTASSIUM, SYRINGE STAT 08/12/2017 11:45 AM ANESTHESIA TECHNICIAN after 04/29/2017 Results Potassium, syringe (08/12/2017 11:45 AM ANESTHESIA TECHNICIAN) Potassium, syringe 4.7 3.5 - 5.0 mEq/L [facility] DEPARTMENT OF PATHOLOGY AND GENOMIC MEDICINE Specimen Blood Performing Organization Address [facility] Phone Number [facility] DEPARTMENT OF PATHOLOGY AND [address] [place] [phone] GENOMIC MEDICINE Hemoglobin, syringe (08/12/2017 11:45 AM ANESTHESIA TECHNICIAN) Hemoglobin, syringe 9.3 (L) 14.0 - 18.0 g/dL [facility] DEPARTMENT OF PATHOLOGY AND GENOMIC MEDICINE Specimen Blood Performing Organization Address City/[facility] Phone Number [facility] DEPARTMENT OF PATHOLOGY AND [address] [place] [phone] GENOMIC MEDICINE Glucose level, syringe (08/12/2017 11:45 AM ANESTHESIA TECHNICIAN) Glucose, syringe 96 65 - 99 mg/dL [facility] DEPARTMENT OF PATHOLOGY AND GENOMIC MEDICINE Specimen Blood Performing Organization Address [facility]ode Phone Number [facility] DEPARTMENT OF PATHOLOGY AND [address] [place] [phone] GENOMIC MEDICINE after 04/29/2017 Insurance Payer Benefit Plan / Group Subscriber ID Type Phone Address MEDICARE MEDICARE PART A AND B xxxxxxxxxx Medicare [place], [place] AETNA AETNA PPO OPEN CHOICE xxxxxxxxx PPO Advance Directives Patient has advance care planning documents on file. For more information, please contact:[place] [address]
[2018-04-30 14:16] LABS: Absolute Lymphocytes (CBC) 1.1 K/uL (0.7-4.9); Absolute Monocytes 1.1 K/uL (0.1-1.3); Absolute Neutrophil 4.4 K/uL (1.8-8.0); Eosinophils % 5.6 % (0-4.4); Hematocrit 26.6 % (39.6-49.0); Lymphocytes % 15.3 % (15.3-44.8); MPV 7.4 fL (7.6-11.3); Monocytes % 15.2 % (3.3-12.3); RBC Red Blood Cell Count 2.92 M/uL (4.33-5.43)
[2018-04-30 14:24] LABS: Protime INR 1.32
[2018-04-30 14:43] LABS: ALT/SGPT 25 U/L (12-78); AST/SGOT 13 U/L (15-37); Albumin 2.5 g/dL (3.4-5.0); Alkaline Phosphatase 99 U/L (45-117); BUN Blood Urea Nitrogen 91 mg/dL (7-18); Bicarbonate 25 mmol/L (21-32); Bilirubin Direct 0.2 mg/dL (0-0.2); Bilirubin Total 0.4 mg/dL (0.2-1.0); Blood Morphology Comment NOTED (NOT SEEN); Glucose Level 91 mg/dL (74-106); Magnesium 2.1 mg/dL (1.8-2.4); NT PRO-BNP 21057 pg/mL (<450); Platelet Estimate ADEQ; Potassium 4.2 mmol/L (3.5-5.1); Sodium Level 141 mmol/L (136-145); Troponin (Emerg Dept Use Only) < 0.02 ng/mL (0.0-0.045); Urine White Blood Cell Casts OK
[2018-04-30 14:44] LABS: Hypochromasia 1+
[2018-04-30 14:46] LABS: Elliptocytes 1+
--- NOTE | 2018-04-30 16:07 | ER ---
Nurse's Notes [facility] Name: Evans Thomas Age: 87 yrs Sex: Male : 1930 Arrival Date: 04/30/2018 Time: 12:49 Bed 19 Private MD: Diagnosis: Chronic kidney disease (CKD);Pleural effusion in conditions classified elsewhere;Systolic (congestive) heart failure;Chest pain, unspecified Presentation: 04/30 12:55 Presenting complaint: EMS states: called out to dialysis center for right sided chest em pain with nausea, missed Thursday dialysis due to "blow dialysis access," completed little over an hour of dialysis, given Nitro x 1 at dialysis center, pt appears in no apparent distress, rates pain 2/10. Transition of care: patient was not received from another setting of care. Onset of symptoms Onset of symptoms was April 30, 2018. Risk Assessment: Do you want to hurt yourself or someone else? Patient reports no desire to harm self or others. Initial Sepsis Screen: Does the patient meet any 2 criteria? No. Patient's initial sepsis screen is negative. Does the patient have a suspected source of infection? No. Patient's initial sepsis screen is negative. Care prior to arrival: Medication(s) given: Nitro 0.4 mg. 12:55 Method Of Arrival: EMS: [facility] em 13:16 Acuity: DWAIN 3 ss Triage Assessment: 13:08 General: Appears in no apparent distress. comfortable, Behavior is calm, cooperative. em Pain: Complains of pain in anterior aspect of right upper chest. Cardiovascular: Capillary refill < 3 seconds Patient's skin is warm and dry. Rhythm is atrial fibrillation. GI: Reports nausea. Historical: - Allergies: 13:08 Doxycycline; em 13:08 Iodine; em - Home Meds: 13:08 aspirin 81 mg Oral TbEC 1 tab once daily [Active]; carvedilol 12.5 mg Oral tab 2 times em per day [Active]; folic acid 1 mg Oral tab 1 tab once daily [Active]; hydralazine 25 mg Oral tab 1 tab three times daily. Hold if SBP <140 [Active]; lisinopril 10 mg Oral tab 1 tab once daily [Active]; Zocor 20 mg Oral tab 1 tab once daily [Active]; Senokot S 2 tabs Oral bedtime prn [Active]; - PMHx: 13:08 Anemia; Angina; CAD; CHF; colon cancer; ESRD; High Cholesterol; Hypertension; em Myocardial infarction; Pneumonia; ADD/ADHD; - PSHx: 13:08 Heart stents; partial colon removal; em - Immunization history:: Adult Immunizations up to date. - Social history:: Smoking status: Patient/guardian denies using tobacco. - Ebola Screening: : Patient negative for fever greater than or equal to 101.5 degrees Fahrenheit, and additional compatible Ebola Virus Disease symptoms Patient denies exposure to infectious person Patient denies travel to an Ebola-affected area in the 21 days before illness onset No symptoms or risks identified at this time. Screenin:09 Abuse screen: Denies threats or abuse. Nutritional screening: No deficits noted. em Tuberculosis screening: No symptoms or risk factors identified. Fall Risk None identified. Assessment: 13:10 General: Appears in no apparent distress. comfortable, Behavior is calm, cooperative, em Denies fever. Pain: Complains of pain in anterior aspect of right upper chest Pain does not radiate. Pain currently is 2 out of 10 on a pain scale. Pain began 30 min ago. Neuro: Level of Consciousness is awake, alert, obeys commands, Oriented to person, place, time, situation. Cardiovascular: Reports nausea, Heart tones S1 S2 present Capillary refill < 3 seconds Patient's skin is warm and dry. Rhythm is atrial fibrillation Dialysis shunt: in the dorsal aspect of left forearm, with palpable thrill, with auscultated bruit, with no erythema, with no edema, no bleeding noted. Respiratory: Airway is patent Respiratory effort is even, unlabored, Respiratory pattern is regular, symmetrical, Breath sounds with wheezes in right posterior upper lobe and right posterior middle lobe Onset: The symptoms/episode began/occurred suddenly. GI: Abdomen is flat, Reports nausea, Patient currently denies vomiting. : No signs and/or symptoms were reported regarding the genitourinary system. EENT: No signs and/or symptoms were reported regarding the EENT system. Derm: Skin is intact, Skin is pink, warm \\T\\ dry. Musculoskeletal: Range of motion: intact in all extremities. 13:15 General: The previous assessment is accurate, call light remains within reach. . ss 14:00 Reassessment: Patient appears in no apparent distress at this time. Patient and/or em family updated on plan of care and expected duration. Pain level reassessed. Patient is alert, oriented x 3, equal unlabored respirations, skin warm/dry/pink. 15:07 Reassessment: Patient appears in no apparent distress at this time. Patient and/or em family updated on plan of care and expected duration. Pain level reassessed. Patient is alert, oriented x 3, equal unlabored respirations, skin warm/dry/pink. Patient denies pain at this time. Patient states feeling better. Patient states symptoms have improved. 16:05 Reassessment: Patient appears in no apparent distress at this time. Patient and/or em family updated on plan of care and expected duration. Pain level reassessed. Patient is alert, oriented x 3, equal unlabored respirations, skin warm/dry/pink. 17:20 Reassessment: Patient appears in no apparent distress at this time. Patient and/or em family updated on plan of care and expected duration. Pain level reassessed. Patient is alert, oriented x 3, equal unlabored respirations, skin warm/dry/pink. pending room assignment, family at bedside. 18:30 Reassessment: Patient appears in no apparent distress at this time. Patient and/or em family updated on plan of care and expected duration. Pain level reassessed. Patient is alert, oriented x 3, equal unlabored respirations, skin warm/dry/pink. pending room assignment Patient denies pain at this time. Patient states symptoms have improved. 19:00 Reassessment: Patient appears in no apparent distress at this time. Patient and/or jb4 family updated on plan of care and expected duration. Pain level reassessed. Patient is alert, oriented x 3, equal unlabored respirations, skin warm/dry/pink. Cardiovascular: Patient's skin is warm and dry. Respiratory: Airway is patent Respiratory effort is even, unlabored, Respiratory pattern is regular, symmetrical. 20:18 Reassessment: Patient appears in no apparent distress at this time. Patient and/or jb4 family updated on plan of care and expected duration. Pain level reassessed. Patient is alert, oriented x 3, equal unlabored respirations, skin warm/dry/pink. Vital Signs: 13:08 BP 159 / 69; Pulse 66; Resp 18; Temp 97.7(T); Pulse Ox 99% on R/A; Weight 71.67 kg; em Height 5 ft. 10 in. (177.80 cm); Pain 2/10; 14:29 BP 146 / 69; Pulse 59; Resp 17; Pulse Ox 97% on R/A; mh5 15:14 BP 151 / 50; Pulse 67; Resp 15; Pulse Ox 96% on R/A; Pain 0/10; em 16:15 BP 139 / 73; Pulse 63; Resp 18; Pulse Ox 99% on R/A; Pain 0/10; em 17:30 BP 143 / 62; Pulse 65; Resp 20; Pulse Ox 99% ; em 18:30 BP 148 / 59; Pulse 59; Resp 16; Pulse Ox 99% on R/A; Pain 0/10; em 19:30 BP 153 / 58; Pulse 63; Resp 18; Pulse Ox 97% on R/A; jb4 13:08 Body Mass Index 22.67 (71.67 kg, 177.80 cm) em ED Course: 12:49 Patient arrived in ED. tw2 12:55 Jone Ponce LVN is Primary Nurse. em 12:58 Rick Yeboah PA is PHCP. tw2 13:08 Arm band placed on. em 13:12 Patient has correct armband on for positive identification. Placed in gown. Bed in low em position. Call light in reach. Adult w/ patient. case monitor on. Pulse ox on. NIBP on. 13:12 No provider procedures requiring assistance completed. Maintain EMS IV. Dressing em intact. Good blood return noted. Site clean \\T\\ dry. Gauge \\T\\ site: 20 RAC. Patient maintains SpO2 saturation greater than 95% on room air. 13:17 Triage completed. ss 14:13 Bob Ovalle MD is Attending Physician. jr8 14:41 X-ray completed. Portable x-ray completed in exam room. Patient tolerated procedure ag1 well. 14:44 XRAY Chest (1 view) In Process Unspecified. EDMS 16:00 Yisel Bell MD is Hospitalizing Provider. jr8 20:18 Patient admitted, IV remains in place. jb4 Administered Medications: No medications were administered Outcome: 16:01 Decision to Hospitalize by Provider. jr8 20:17 Admitted to Med/surg accompanied by tech, via stretcher, room 204, with chart, Report jb4 called to ROBERT Heredia 20:17 Condition: stable 20:17 Discharge instructions given to patient, Instructed on the need for admit, Demonstrated understanding of instructions. 20:19 Patient left the ED. jb4 Signatures: Dispatcher [employer] Jone Malhotra, SALES FACILITATOR SALES FACILITATOR Petrona Carranza, RN RN ss Rick Yeboah PA PA jr8 Shahnaz Alex 1 Alisa Charles RN RN tw2 Master Winter RN RN jb4 Kylie Wright [facility]
--- NOTE | 2018-04-30 16:07 | EDPHYS ---
Physician Documentation [facility] Name: Evans Thomas Age: 87 yrs Sex: Male : 1930 Arrival Date: 04/30/2018 Time: 12:49 Bed 19 Private MD: ED Physician Bob Ovalle HPI: 04/30 14:11 This 87 yrs old Male presents to ER via EMS with complaints of Chest Pain. jr8 14:11 The patient or guardian reports chest pain that is located primarily in the anterior jr8 chest wall, right. Onset: acutely, today. The pain does not radiate. Associated signs and symptoms: The patient has no apparent associated signs or symptoms. The chest pain is described as dull. Duration: The patient or guardian reports a single episode. Modifying factors: The symptoms are alleviated by nothing. the symptoms are aggravated by nothing. The patient has experienced a previous episode. The patient has not recently seen a physician. Patient stated that for the past three times at dialysis they have not been able to take as much fluid off of him. Stated that he started to have chest tightness which will happen if he accumulates water around his lungs which has happened before. Historical: - Allergies: 13:08 Doxycycline; em 13:08 Iodine; em - Home Meds: 13:08 aspirin 81 mg Oral TbEC 1 tab once daily [Active]; carvedilol 12.5 mg Oral tab 2 times em per day [Active]; folic acid 1 mg Oral tab 1 tab once daily [Active]; hydralazine 25 mg Oral tab 1 tab three times daily. Hold if SBP <140 [Active]; lisinopril 10 mg Oral tab 1 tab once daily [Active]; Zocor 20 mg Oral tab 1 tab once daily [Active]; Senokot S 2 tabs Oral bedtime prn [Active]; - PMHx: 13:08 Anemia; Angina; CAD; CHF; colon cancer; ESRD; High Cholesterol; Hypertension; em Myocardial infarction; Pneumonia; ADD/ADHD; - PSHx: 13:08 Heart stents; partial colon removal; em - Immunization history:: Adult Immunizations up to date. - Social history:: Smoking status: Patient/guardian denies using tobacco. - Ebola Screening: : Patient negative for fever greater than or equal to 101.5 degrees Fahrenheit, and additional compatible Ebola Virus Disease symptoms Patient denies exposure to infectious person Patient denies travel to an Ebola-affected area in the 21 days before illness onset No symptoms or risks identified at this time. ROS: 14:11 Eyes: Negative for injury, pain, redness, and discharge, ENT: Negative for injury, jr8 pain, and discharge, Neck: Negative for injury, pain, and swelling, Respiratory: Negative for shortness of breath, cough, wheezing, and pleuritic chest pain, Abdomen/GI: Negative for abdominal pain, nausea, vomiting, diarrhea, and constipation, Back: Negative for injury and pain, MS/Extremity: Negative for injury and deformity, Skin: Negative for injury, rash, and discoloration, Neuro: Negative for headache, weakness, numbness, tingling, and seizure. 14:11 Cardiovascular: Positive for chest pain, Negative for edema, orthopnea, palpitations, paroxysmal nocturnal dyspnea. Exam: 14:11 Eyes: Pupils equal round and reactive to light, extra-ocular motions intact. Lids and jr8 lashes normal. Conjunctiva and sclera are non-icteric and not injected. Cornea within normal limits. Periorbital areas with no swelling, redness, or edema. ENT: Nares patent. No nasal discharge, no septal abnormalities noted. Tympanic membranes are normal and external auditory canals are clear. Oropharynx with no redness, swelling, or masses, exudates, or evidence of obstruction, uvula midline. Mucous membranes moist. Neck: Trachea midline, no thyromegaly or masses palpated, and no cervical lymphadenopathy. Supple, full range of motion without nuchal rigidity, or vertebral point tenderness. No Meningismus. Cardiovascular: Regular rate and rhythm with a normal S1 and S2. No gallops, murmurs, or rubs. Normal PMI, no JVD. No pulse deficits. Abdomen/GI: Soft, non-tender, with normal bowel sounds. No distension or tympany. No guarding or rebound. No evidence of tenderness throughout. Back: No spinal tenderness. No costovertebral tenderness. Full range of motion. Skin: Warm, dry with normal turgor. Normal color with no rashes, no lesions, and no evidence of cellulitis. MS/ Extremity: Pulses equal, no cyanosis. Neurovascular intact. Full, normal range of motion. Neuro: Awake and alert, GCS 15, oriented to person, place, time, and situation. Cranial nerves II-XII grossly intact. Motor strength 5/5 in all extremities. Sensory grossly intact. Cerebellar exam normal. Normal gait. 14:11 Respiratory: the patient does not display signs of respiratory distress, Respirations: normal, symetrical, no use of accessory muscles, no grunting, no evidence of nasal flaring, no prolonged exhalations, no pursed lip breathing, no retractions, no shallow respirations, no splinting, no tachypnea, Breath sounds: rales, that are mild, are heard in the right upper lobe, right posterior upper lobe and right posterior middle lobe. Vital Signs: 13:08 BP 159 / 69; Pulse 66; Resp 18; Temp 97.7(T); Pulse Ox 99% on R/A; Weight 71.67 kg; em Height 5 ft. 10 in. (177.80 cm); Pain 2/10; 14:29 BP 146 / 69; Pulse 59; Resp 17; Pulse Ox 97% on R/A; mh5 15:14 BP 151 / 50; Pulse 67; Resp 15; Pulse Ox 96% on R/A; Pain 0/10; em 16:15 BP 139 / 73; Pulse 63; Resp 18; Pulse Ox 99% on R/A; Pain 0/10; em 17:30 BP 143 / 62; Pulse 65; Resp 20; Pulse Ox 99% ; em 18:30 BP 148 / 59; Pulse 59; Resp 16; Pulse Ox 99% on R/A; Pain 0/10; em 19:30 BP 153 / 58; Pulse 63; Resp 18; Pulse Ox 97% on R/A; jb4 13:08 Body Mass Index 22.67 (71.67 kg, 177.80 cm) em MDM: 12:58 Patient medically screened. [facility] 15:59 Data reviewed: vital signs, nurses notes, lab test result(s), EKG, radiologic studies, jr8 plain films. Data interpreted: Pulse oximetry: on room air is 96 %. Interpretation: normal. Counseling: I had a detailed discussion with the patient and/or guardian regarding: the historical points, exam findings, and any diagnostic results supporting the discharge/admit diagnosis, lab results, radiology results, the need for further work-up and treatment in the hospital. Physician consultation: Yisel Bell MD was called at 15:59, was contacted at 16:00, regarding admission, to the telemetry unit. consult, patient's condition, and will see patient. 04/30 13:31 Order name: Basic Metabolic Panel; Complete Time: 14:47 [facility] 04/30 13:31 Order name: CBC with Diff; Complete Time: 14:47 8 04/30 13:31 Order name: LFT's; Complete Time: 14:47 [facility] 04/30 13:31 Order name: Magnesium; Complete Time: 14:47 [facility] 04/30 13:31 Order name: NT PRO-BNP; Complete Time: 14:47 8 04/30 13:31 Order name: PT-INR; Complete Time: 14:40 [facility] 04/30 13:31 Order name: Troponin (emerg Dept Use Only); Complete Time: 14:47 [facility] 04/30 13:31 Order name: XRAY Chest (1 view); Complete Time: 17:19 [facility] 04/30 13:31 Order name: EKG; Complete Time: 13:33 [facility] 04/30 13:31 Order name: Cardiac monitoring; Complete Time: 13:38 [facility] 04/30 13:31 Order name: EKG - Nurse/Tech; Complete Time: 13:38 [facility] 04/30 13:31 Order name: IV Saline Lock; Complete Time: 13:38 [facility] 04/30 14:23 Order name: CBC Smear Scan; Complete Time: 14:47 [facility]PR 04/30 16:15 Order name: CONS Physician Consult EDPR 04/30 13:31 Order name: Labs collected and sent; Complete Time: 13:38 [facility] 04/30 13:31 Order name: O2 Per Protocol; Complete Time: 13:38 [facility] 04/30 13:31 Order name: O2 Sat Monitoring; Complete Time: 13:38 [facility] Administered Medications: No medications were administered Disposition: 04/30/18 16:01 Hospitalization ordered by Yisel Bell for Observation. Preliminary diagnosis are Chronic kidney disease (CKD), Pleural effusion in conditions classified elsewhere, Systolic (congestive) heart failure, Chest pain, unspecified. - Bed requested for Telemetry/MedSurg (observation). - Status is Observation. jb4 - Condition is Stable. - Problem is new. - Symptoms have improved. UTI on Admission? No Addendum: 05/03/2018 08:14 Co-signature as Attending Physician, Bob Ovalle MD I agree with the assessment and c castañeda plan of care. Signatures: Dispatcher [employer] Chani Mercedes, RN RN Bob Bradford MD MD cha Munoz, Edgar, AUTO REBUILDER AUTO REBUILDER Rick Nava PA PA jr8 Master Winter, RN RN jb4 Corrections: (The following items were deleted from the chart) 04/30 19:38 16:01 Hospitalization Ordered by Yisel Bell MD for Observation. Preliminary diagnosis dw is Chronic kidney disease (CKD); Pleural effusion in conditions classified elsewhere; Systolic (congestive) heart failure; Chest pain, unspecified. Bed requested for Telemetry/MedSurg (observation). Status is Observation. Condition is Stable. Problem is new. Symptoms have improved. UTI on Admission? No. jr8 20:19 19:38 04/30/2018 16:01 Hospitalization Ordered by Yisel Bell MD for Observation. jb4 Preliminary diagnosis is Chronic kidney disease (CKD); Pleural effusion in conditions classified elsewhere; Systolic (congestive) heart failure; Chest pain, unspecified. Bed requested for Telemetry/MedSurg (observation). Status is Observation. Condition is Stable. Problem is new. Symptoms have improved. UTI on Admission? No. dw
--- NOTE | 2018-04-30 17:18 | RAD REPORT ---
EXAM DESCRIPTION: RAD - Chest Single View - 04/30/2018 2:44 pm CLINICAL HISTORY: Chest pain, shortness of breath COMPARISON: Two-view chest exam February 16, 2018, CT chest study February 15, 2011 TECHNIQUE: AP portable chest image was obtained 1438 hours . FINDINGS: Lung volumes are low. Bilateral pleural effusions are present similar on the left and slig htly larger on the right compared to chest imaging. Vasculature is prominent. Heart size is normal ra nge and stable. No pneumothorax. Trachea is midline. Retrocardiac left base opacification is present. This has been seen on prior imaging. The CT study demonstrated a 7 x 3 centimeter focal mass density that could be chronic atelectasis, mass or infiltrate. There are no findings to suggest interval res olution. IMPRESSION: Shallow inspiration film showing a mild failure/ volume overload pattern. Right pleural effusion has increased slightly from prior imaging. Masslike density retrocardiac left base has not changed from the mid February imaging. Chronic infil trate, chronic atelectasis and mass are all possible.
--- NOTE | 2018-04-30 17:54 | P.HP ---
Certification for Inpatient Patient admitted to: Observation With expected LOS: <2 Midnights Patient will require the following post-hospital care: None Practitioner: I am a practitioner with admitting privileges, knowledge of patient current condition, hospital course, and medical plan of care. Services: Services provided to patient in accordance with Admission requirements found in Title 42 Section 412.3 of the Code of Federal Regulations Patient History Date of Service: 04/30/18 Primary Care Provider: Dr Thomas Reason for admission: Chest pain History of Present Illness: This is a 87-year-old male with significant past medical history of end-stage renal disease on hemodialysis Thursday, congestive heart failure , CAD, hypertension, GERD, recurrent pleural effusion volume overload state who presented to the ED complaining of having some chest tightness that has been going on for past couple of days. Patient's family at bedside stated that patient usually gets this chest tightness when there is a lot of fluid that is built around his lungs and he is unable to take a deep breath in. Patient has not been able to finish his dialysis session for past 3 days due to several reasons. The 1st session has been disconnected due to malfunction of his catheters the 2nd was unknown reason and on the 3rd 1 because patient started having chest tightness. Again patient was decided to come to the ER for further workup. Patient was seen last visit for similar symptoms and was found to have pair of fusion that got worse due to volume overload. At that time pulmonology was consulted who recommended he margin dialysis versus IV Lasix. Patient had marked improvement after the treatment and did not require any thoracentesis. In the ER today patient was again found to have chest tightness and on imaging and lab work was found to have volume overload with worsening of the right- sided pleural effusion. Patient thus was admitted for further care for his Pleural Effusion and chest tightness. Allergies doxycycline Allergy (Verified 12/30/17 09:19) Itching/Hives/Rash iodine [Iodine] Allergy (Verified 12/30/17 09:19) Anaphylaxis Home Medications: Aspirin [Aspirin EC 81 MG] 81 mg PO DAILY 10/11/17 Carvedilol [Coreg*] 12.5 mg PO BID 10/11/17 Docusate/Senna [Senokot-S*] 1 - 2 tab PO BEDTIME PRN PRN 10/11/17 Multivit-Minerals/Folic Acid [Men's Multivitamin Gummies] 1 tab PO DAILY Simvastatin [Zocor] 20 mg PO BEDTIME 10/11/17 Vit A/Vit C/Vit E/Zinc/Copper [Preservision Areds Softgel] 1 cap PO BID Folic Acid 1 mg PO DAILY #30 tablet 10/27/17 Amino Acids/Protein Hydrolys [Liquacel 100 Liquid Protein] 2 tbsp PO BREAKFAST 11/17/17 Hydralazine HCl 25 mg PO TID 12/30/17 Lisinopril [Prinivil*] 10 mg PO DAILY 12/30/17 Albuterol Sulfate [Albuterol Sulfate 0.083% Neb Soln] 2.5 mg IH Q4HP PRN Cholecalciferol (Vitamin D3) [Vitamin D3] 1,000 unit PO DAILY 02/14/18 - Past Medical/Surgical History Diabetic: No -: Angina -: CAD -: HTN -: Hylerlipidemia -: Colon Ca -: CKD Stage 3 -: skin Ca- squamous cell-left ear, face & right hand -: dyspnea -: nephrotic range proteinuria -: renal anasarca -: part of colon removed(2007) -: removal of skin Ca from left ear, face & right hand(different times) -: right shoulder surgery -: left fistula -: right pascual - Family History Father -: Heart disease Sister -: Diabetes - Social History Alcohol use: No CD- Drugs: No Caffeine use: No Review of Systems 10-point ROS is otherwise unremarkable Physical Examination - Physical Exam General: Alert, Cachectic, Mild distress HEENT: Atraumatic, PERRLA, EOMI, Sclerae nonicteric Neck: Supple, 2+ carotid pulse no bruit, No LAD, JVD distended Respiratory: Normal air movement, Crackles/rales Cardiovascular: Regular rate/rhythm, Normal S1 S2 Gastrointestinal: Normal bowel sounds, Soft and benign, Non-distended, No tenderness Musculoskeletal: No tenderness Integumentary: No rashes Neurological: Normal gait, Normal speech, Normal strength at 5/5 x4 extr, Normal tone, Normal affect Lymphatics: No axilla or inguinal lymphadenopathy - Studies Laboratory Data (last 24 hrs) 04/30/18 14:08: PT 15.6 H, INR 1.32 04/30/18 14:08: WBC 7.0, Hgb 9.0 L, Hct 26.6 L, Plt Count 286 04/30/18 14:08: Sodium 141, Potassium 4.2, BUN 91 H, Creatinine 6.70 H*, Glucose 91, Magnesium 2.1, Total Bilirubin 0.4, AST 13 L, ALT 25, Alkaline Phosphatase 99 Assessment and Plan - Problems (Diagnosis) (1) Chest pain Current Visit: Yes Status: Acute Plan: Chest tightness on Breathing most likely 2.2 to Pleural Effusion and volume overload due to Failed dialysis for past 3 session -Cardiology consulted. Awaiting reccs -Troponin x 2 q8h to r.o CAD -IV lasix and Dialysis for Volume overload and Pleural Effusion Qualifiers: Chest pain type: chest pain on breathing Qualified Code(s): R07.1 - Chest pain on breathing; R07.81 - Pleurodynia (2) Pleural effusion Current Visit: No Status: Chronic Plan: BL pleural Effusion, Right worse than Left and Right worse than before as well -2.2 to Volume overload -IV lasix for now -If no improvement Pulmonology consult for possible Throacentesis (3) ESRD on dialysis Onset Date: 10/12/17 Current Visit: No Status: Chronic Plan: HD M,W,F however unable to get it done for past three times for multifactorial reasons -Nephrology consulted. Awaiting reccs -Will need Emergent Dialysis here in the hospital -Will F.u post dialysis (4) Anemia in chronic kidney disease Onset Date: 10/26/17 Current Visit: No Status: Chronic Plan: Currently Stable. Monitor closely Qualifiers: Chronic kidney disease stage: on chronic dialysis Qualified Code(s): N18.6 - End stage renal disease; D63.1 - Anemia in chronic kidney disease; Z99.2 - Dependence on renal dialysis (5) CAD (coronary artery disease) Onset Date: 06/11/17 Current Visit: No Status: Chronic Qualifiers: Coronary Disease-Associated Artery/Lesion type: [place] artery [place] vs. transplanted heart: [place] heart Associated angina: with stable angina Qualified Code(s): I25.118 - Atherosclerotic heart disease of [place] coronary artery with other forms of angina pectoris (6) CHF (congestive heart failure) Onset Date: 10/26/17 Current Visit: No Status: Chronic Qualifiers: Heart failure type: systolic Heart failure chronicity: chronic Qualified Code(s): I50.22 - Chronic systolic (congestive) heart failure (7) HTN (hypertension) Onset Date: 06/11/17 Current Visit: No Status: Chronic Qualifiers: Hypertension type: essential hypertension Qualified Code(s): I10 - Essential (primary) hypertension (8) Hyperlipidemia Onset Date: 06/11/17 Current Visit: No Status: Chronic Qualifiers: Hyperlipidemia type: mixed hyperlipidemia Qualified Code(s): E78.2 - Mixed hyperlipidemia Discharge Plan: Home Plan to discharge in: 48 Hours - Advance Directives Does patient have a Living Will: Yes Does patient have a Durable POA for Healthcare: Yes - Code Status/Comfort Care Code Status Assessed: Yes Critical Care: No
[2018-04-30] MEDS ORDERED: ONDANSETRON 4 MG/2 ML VIAL IV PRN (20:04)
[2018-04-30 22:36] LABS: Troponin I < 0.02 ng/mL (0.0-0.045)
[2018-05-01 03:07] LABS: Urine Appearance CLEAR; Urine Bilirubin NEGATIVE (NEG); Urine Blood NEGATIVE (NEG); Urine Color YELLOW; Urine Glucose NEGATIVE (NEG); Urine Protein 2+ (NEG); Urine Specific Gravity 1.015 (1.005-1.030); Urine Urobilinogen 0.2 mg/dL (0.2-1.0); Urine pH 5.5 (5.0-7.0)
[2018-05-01 03:16] LABS: Urine Microscopic Reflex ORDER UMIC
[2018-05-01 03:25] LABS: Urine Amorphous Sediment TRACE /HPF (NONE SEEN); Urine Bacteria <20 /HPF (NONE SEEN); Urine Culture Reflex Order NOT NEEDED; Urine RBC NONE SEEN /HPF (NONE SEEN)
[2018-05-01 05:44] LABS: Absolute Lymphocytes (CBC) 1.4 K/uL (0.7-4.9); Absolute Monocytes 0.7 K/uL (0.1-1.3); Absolute Neutrophil 3.7 K/uL (1.8-8.0); Basophils % 0.8 % (0-1.3); Eosinophils % 8.4 % (0-4.4); Hematocrit 24.8 % (39.6-49.0); MPV 7.3 fL (7.6-11.3); Monocytes % 11.5 % (3.3-12.3); RBC Red Blood Cell Count 2.71 M/uL (4.33-5.43)
[2018-05-01 06:01] LABS: Albumin 2.4 g/dL (3.4-5.0); Bilirubin Total 0.4 mg/dL (0.2-1.0); Magnesium 2.3 mg/dL (1.8-2.4); Phosphorus 7.9 mg/dL (2.5-4.9); Potassium 4.7 mmol/L (3.5-5.1); Protein, Total 6.6 g/dL (6.4-8.2)
--- NOTE | 2018-05-01 07:03 | EKG ---
Test Date: 2018-04-30 Test Time: 13:07:39 Software Systems Architect: KEREN MEASUREMENT RESULTS: Intervals: Rate: 65 SD: QRSD: 92 QT: 430 QTc: 447 Shannon: P: SD: QRS: 78 T: 67 INTERPRETIVE STATEMENTS: Atrial fibrillation Anteroseptal infarct, age undetermined Abnormal ECG Compared to ECG 02/14/2018 14:45:47 Prolonged QT interval no longer present Myocardial infarct finding still present Electronically Signed On 05-01-18 07:02:57 ANIMAL CARE PROVIDER by Roque Santiago
[2018-05-01] MEDS ORDERED: NA CHLORIDE 0.9% 1,000 ML IV PRN (08:28)
--- NOTE | 2018-05-01 08:38 | RAD REPORT ---
EXAM DESCRIPTION: RAD - Chest Pa And Lat (2 Views) - 05/01/2018 6:22 am CLINICAL HISTORY: Pleural effusion, shortness of breath COMPARISON: Portable April 30, two view February 16 TECHNIQUE: PA and lateral views of the chest were obtained. FINDINGS: The lungs are normal volume. There is underlying fibrotic lung disease. Small bilateral pl eural effusions are present not substantially different back to February. Masslike density remains in the posterior left lung base. Heart size is normal and central vasculature is within normal limits . No pleural effusion or pneumothorax seen. No acute bony finding noted. No aortic abnormality. IMPRESSION: Bilateral pleural effusion stable back to February 16. Posterior left base masslike density unchanged back to February imaging. No new or progressive cardiopulmonary finding.
[2018-05-01] MEDS: FUROSEMIDE 20 MG/ 2ML VIAL IV SCH ×3 (08:47→16:37)
[2018-05-01] MEDS ORDERED: ALBUMIN HUMAN 25% 50 ML IV SCH (09:00)
--- NOTE | 2018-05-01 11:16 | CON ---
History Of Present Illness: Mr. Thomas is 87. He has renal failure. He has missed 2 dialysis becaus e of problems with his access graft. He has an AV fistula or AV connection of some kind in his left arm. It has normally worked well, but one spell of dialysis was interrupted by low blood pressure. The second one interrupted by the graft failure. Now, he is here complaining of being tired and out of breath. He normally gets dialysis on Mondays, Wednesdays and Fridays, but now has gotten just 1 h our of dialysis where he should have had about 9. His creatinine is 7.7. Mr. Thomas has a history of coronary heart disease with multiple stents. He has history of colon cancer. He is not having ches t pain now. He has renal failure, longstanding hypertension, dyslipidemia. Physical Examination: General: He looks tired, exhausted. Vital signs: He is 5 feet and 10 inches, 157 pounds. Lungs: Clear. Heart: Regular rate and rhythm. Abdomen: Soft. Extremities: The left arm has a graft with a thrill, but there is ecchymosis, hematoma around the mo re proximal portion of that. Recommendations: I would recommend we put a Tesio catheter in, do dialysis through that for a month or so, let the graft heal, let it get revised if need be, but do all his dialysis through Tesio. He probably needs to get the Tesio today and dialysis later today. JOYCE/MORENA Voice ID: [id number] Report ID: [id number]
--- NOTE | 2018-05-01 11:37 | PREOPCON ---
Date of Consultation: 05/01/2018 Reason: The patient needs a Tesio catheter. History Of Present Illness: The patient is an 87-year-old gentleman, who has end-stage renal disease , is on dialysis, has a left arm AV fistula, which was infiltrated couple of days ago and yesterday t ried to dialyze it more, not able to and needs a catheter for dialysis while his AV fistula heals and he may need intervention which is unclear at this time. He is awake, alert, no complaint. He had o ccasional chest discomfort secondary to increased fluid. No fever or chills. No other signs of infe ction. Review of Systems: Otherwise unremarkable. Past Medical History: Significant for angina coronary artery disease, hypertension, hyperlipidemia, colon cancer, and end-stage renal disease. Past Surgical History: Significant for colectomy, skin cancer, removal of vitiligo surgery, left arm AV fistula. Catheters in the past for dialysis. Allergies: DOXYCYCLINE AND IODINE. Social History: He does not smoke or drink. Family History: Significant for heart disease and diabetes. Physical Examination: Vital Signs: Stable. He is afebrile. General: He is awake, alert, orient x3. Head and Neck: Cranial nerves 2 through 12 grossly within normal limits. No neck masses. No JVD. Throat clear. Neck is supple. Chest: Clear. Heart: S1, S2. Abdomen: Soft. Extremities: Neurovascularly intact. Neuro: Nonfocal. Laboratory Data: White count is 6.5, H and H is 8.4 and 24.8, platelets are 256. INR is 1.32. Chem istry shows BUN to be 101, creatinine to be 7.7. Assessment: An 87-year-old gentleman with end-stage renal disease requiring dialysis soon because of volume overload. Recommendations: We will proceed with Tesio catheter placement. The case discussed with the nephrol ogist and Dr. Santiago. The patient understands the risks, benefits, and alternatives and agrees to pr ocedure. We will do it today. /MODL Voice ID: [id number] Report ID: [id number]
[2018-05-01] MEDS ORDERED: HYDRALAZINE HCL 20 MG/ML VIAL IV ONE (11:38)
[2018-05-01] MEDS ORDERED: NA CHLORIDE 0.9% 500 ML ONE (13:21)
[2018-05-01] MEDS ORDERED: MIDAZOLAM HCL 2 MG/2 ML INJ ONE (13:39)
[2018-05-01] MEDS ORDERED: CEFAZOLIN/SWI 1gm 1 GM/10 ML SYR ONE (13:41)
[2018-05-01] MEDS ORDERED: NS 0.9% VIAL 10 ML ONE (13:42)
[2018-05-01] MEDS ORDERED: NA CHLORIDE 0.9% 100 ML IV ONE (13:43)
[2018-05-01] MEDS ORDERED: LIDOCAINE 1% MPF 30 ML VIAL ONE (13:43)
--- NOTE | 2018-05-01 13:47 | P.CNS ---
Date of Consult: 05/01/18 Reason for Consult: ESRD to resume HD and volume management Primary Care Provider: Dr Thomas Chief Complaint: Chest pain History of Present Illness: AN 87-year-old man with past medical history of hypertension, ESRD on home HD MWF via lt AVF , CHF on Home o2, coronary artery disease complicated with congestive heart failure, and skin cancer. Pt was complaining of chest pain started yesterday during HD pt didnt have full HD treatments this wk , due to hypertotension and access infiltration in ER Bun 91/Cr 6.7, CXR pulmonary edema No palpitation, nausea, vomiting or diarrhea t Allergies doxycycline Allergy (Verified 04/30/18 20:49) Itching/Hives/Rash iodine [Iodine] Allergy (Verified 04/30/18 20:49) constipation Home Medications: Albuterol Sulfate [Albuterol Sulfate 0.083% Neb Soln] 1 vial IH Q4H PRN Amino AC/Protein Hydr/Whey Pro [Liquacel Liquid Protein] 2 tbsp PO DAILY Aspirin [Adult Aspirin] 1 tab PO DAILY 04/30/18 Carvedilol [Coreg] 1 tab PO BID 04/30/18 Cholecalciferol (Vitamin D3) [Vitamin D3] 1 tab PO DAILY 04/30/18 Docusate/Senna [Senokot-S*] 1 tab PO BEDTIME PRN 04/30/18 Folic Acid 1 tab PO DAILY 04/30/18 Hydralazine [Apresoline*] 1 tab PO TID PRN 04/30/18 Lisinopril 1 tab PO DAILY 04/30/18 Multivit-Min/Folic/Vit K/Lycop [Men's Multivitamin Tablet] 1 tab PO DAILY Simvastatin 1 tab PO BEDTIME 04/30/18 Vit A/Vit C/Vit E/Zinc/Copper [Preservision Areds Softgel] 1 tab PO BID - Past Medical/Surgical History Diabetic: No -: Angina -: CAD -: HTN -: Hylerlipidemia -: Colon Ca -: CKD Stage 3 -: skin Ca- squamous cell-left ear, face & right hand -: dyspnea -: nephrotic range proteinuria -: renal anasarca -: anemia -: CHF -: part of colon removed(2007) -: removal of skin Ca from left ear, face & right hand(different times) -: right shoulder surgery -: left fistula -: right pascual - Family History Father Medical History: Heart disease Sister Medical History: Diabetes - Social History Smoking Status: Unknown if ever smoked Alcohol use: No CD- Drugs: No Caffeine use: No Place of Residence: Home Physical Examination Temp Pulse Resp BP Pulse Ox 98.1 F 63 16 174/80 H 95 05/01/18 12:00 05/01/18 12:00 05/01/18 12:00 05/01/18 12:00 05/01/18 12:00 General: Alert, Oriented x3 HEENT: Atraumatic Neck: Supple, Without JVD or thyroid abnormality Respiratory: Crackles/rales Cardiovascular: Regular rate/rhythm, Normal S1 S2, No rubs, No murmurs, Edema Laboratory Data (last 24 hrs) 04/30/18 14:08: PT 15.6 H, INR 1.32 04/30/18 14:08: WBC 7.0, Hgb 9.0 L, Hct 26.6 L, Plt Count 286 04/30/18 14:08: Sodium 141, Potassium 4.2, BUN 91 H, Creatinine 6.70 H*, Glucose 91, Magnesium 2.1, Total Bilirubin 0.4, AST 13 L, ALT 25, Alkaline Phosphatase 99 - Problems (1) Chest pain Current Visit: Yes Status: Acute Qualifiers: Chest pain type: chest pain on breathing Qualified Code(s): R07.1 - Chest pain on breathing; R07.81 - Pleurodynia (2) Hypervolemia Onset Date: 02/15/18 Current Visit: No Status: Acute (3) CAD (coronary artery disease) Onset Date: 06/11/17 Current Visit: No Status: Chronic Qualifiers: Coronary Disease-Associated Artery/Lesion type: [place] artery [place] vs. transplanted heart: [place] heart Associated angina: with stable angina Qualified Code(s): I25.118 - Atherosclerotic heart disease of [place] coronary artery with other forms of angina pectoris (4) ESRD on dialysis Onset Date: 10/12/17 Current Visit: No Status: Chronic Conclusions/Impression: AN 87-year-old man with past medical history of hypertension, ESRD on home HD MWF via lt AVF , CHF on Home o2, coronary artery disease complicated with congestive heart failure, and skin cancer. Pt was complaining of chest pain started yesterday during HD pt didnt have full HD treatments this wk , due to hypertotension and access infiltration in ER Bun 91/Cr 6.7, CXR pulmonary edema No palpitation, nausea, vomiting or diarrhea ESRD on HD MWF Access infiltrated Will need PC for now HD today and then TTsat MWF at home will monotr Bun between rx infiltrated access PC today Chest pain ce -ve so far Anemia Will check iron panel, b12 and folate will resume Epo MBD check Phos resume binders
[2018-05-01] MEDS: HEPARIN 5000 UNIT/ML 1 ML VIAL ONE ×2 (14:15→14:21)
--- NOTE | 2018-05-01 14:28 | P.OP ---
Preoperative diagnosis: ESRD, Failed Fistula Postoperative diagnosis: same Primary procedure: KARLI Lama, Fluoroscopy Anesthesia: MAC Estimated blood loss: min Specimen: none Findings: as above Complications: None Transferred to: Recovery Room Condition: Good
--- NOTE | 2018-05-01 15:13 | OP ---
Date of Procedure: 05/01/2018 Surgeon: Arnie Mena MD Preoperative Diagnosis: End-stage renal disease and arteriovenous fistula not working. Postoperative Diagnosis: End-stage renal disease and arteriovenous fistula not working. Procedure: Placement of right internal jugular Tesio catheter and interpretation of intraoperative f luoroscopy. Estimated Blood Loss: Minimal. Specimen: None. Findings: Normal anatomy. Anesthesia: MAC. Complications: None. Disposition: The patient tolerated the procedure in stable condition. Taken recovery in good genera l condition. Procedure In Detail: The patient was brought to the OR, placed in supine position. MAC anesthesia w as begun. The patient was prepped and draped in the usual sterile fashion. Lidocaine 1% infiltrated locally. An 18-gauge needle was used to access the right IJ vein. Guidewire was passed. Position was confirmed with fluoroscopy. Counterincision was made in the right chest. Tunneling device was u sed to tunnel the catheter between the 2 wounds. Seldinger technique was used. Vein was dilated, an d then tip of the catheter was placed in the SVC under fluoroscopy, and then catheter was flushed wit h heparin and packed with heparin with good blood flow, and 3-0 chromic was used to approximate the s ubcutaneous tissue and close skin and 3-0 nylon was used to secure the tube to the chest wall. Steri le dressing was applied. The patient was awakened and taken to recovery in good general condition, and chest x-r ay has been ordered. /MODL Voice ID: [id number] Report ID: [id number]
--- NOTE | 2018-05-01 15:28 | P.PN ---
Subjective Date of Service: 05/01/18 Primary Care Provider: Dr Thomas Chief Complaint: Chest pain Patient seen and examined at bedside with RN. Chart reviewed. Case discussed with general surgery and nephrology at this time. Patient has been scheduled for a Tesio catheter placement this morning Review of Systems 10-point ROS is otherwise unremarkable Physical Examination - Vital Signs Temperature: 98 F Blood Pressure: 131/48 Pulse: 68 Respirations: 16 Pulse Ox (%): 95 - Physical Exam General: Alert, Oriented x3, Mild distress HEENT: Atraumatic, PERRLA, EOMI Neck: Supple, JVD not distended Respiratory: Normal air movement, Crackles/rales Cardiovascular: Regular rate/rhythm, Normal S1 S2 Gastrointestinal: Normal bowel sounds, No tenderness Musculoskeletal: No tenderness Integumentary: No rashes Neurological: Normal speech, Normal tone, Normal affect Lymphatics: No axilla or inguinal lymphadenopathy - Studies Medications List Reviewed: Yes Assessment And Plan - Current Problems (Diagnosis) (1) Chest pain Current Visit: Yes Status: Acute Plan: Chest tightness on Breathing most likely 2.2 to Pleural Effusion and volume overload due to Failed dialysis for past 3 session -Cardiology consulted. Recommendations appreciated at this time -Troponin x 2 q8h to r.o CAD -IV lasix and Dialysis after Tesio catheter placed for Volume overload and Pleural Effusion Qualifiers: Chest pain type: chest pain on breathing Qualified Code(s): R07.1 - Chest pain on breathing; R07.81 - Pleurodynia (2) Pleural effusion Current Visit: No Status: Chronic Plan: BL pleural Effusion, Right worse than Left and Right worse than before as well -2.2 to Volume overload -IV lasix for now -If no improvement Pulmonology consult for possible Throacentesis (3) ESRD on dialysis Onset Date: 10/12/17 Current Visit: No Status: Chronic Plan: HD M,W,F however unable to get it done for past three times for multifactorial reasons -Nephrology consulted. Recommendations appreciated at this time -general surgery has been consulted. Recommendations appreciated at this time -patient scheduled for a Tesio catheter placement this morning has his fistula and the permanent catheter has not been working -patient will be dialyzed post the catheter placement (4) Anemia in chronic kidney disease Onset Date: 10/26/17 Current Visit: No Status: Chronic Plan: Currently Stable. Monitor closely Qualifiers: Chronic kidney disease stage: on chronic dialysis Qualified Code(s): N18.6 - End stage renal disease; D63.1 - Anemia in chronic kidney disease; Z99.2 - Dependence on renal dialysis (5) CAD (coronary artery disease) Onset Date: 06/11/17 Current Visit: No Status: Chronic Qualifiers: Coronary Disease-Associated Artery/Lesion type: [place] artery [place] vs. transplanted heart: [place] heart Associated angina: with stable angina Qualified Code(s): I25.118 - Atherosclerotic heart disease of [place] coronary artery with other forms of angina pectoris (6) CHF (congestive heart failure) Onset Date: 10/26/17 Current Visit: No Status: Chronic Qualifiers: Heart failure type: systolic Heart failure chronicity: chronic Qualified Code(s): I50.22 - Chronic systolic (congestive) heart failure (7) HTN (hypertension) Onset Date: 06/11/17 Current Visit: No Status: Chronic Qualifiers: Hypertension type: essential hypertension Qualified Code(s): I10 - Essential (primary) hypertension (8) Hyperlipidemia Onset Date: 06/11/17 Current Visit: No Status: Chronic Qualifiers: Hyperlipidemia type: mixed hyperlipidemia Qualified Code(s): E78.2 - Mixed hyperlipidemia - Plan Pending clinical improvement at this time Discharge Plan: Home Plan to discharge in: 48 Hours - Code Status/Comfort Care Code Status Assessed: Yes Critical Care: No
--- NOTE | 2018-05-01 16:07 | RAD REPORT ---
EXAM DESCRIPTION: RAD - Chest Single View - 05/01/2018 3:18 pm CLINICAL HISTORY: Expiration chest film following Tessio catheter placement COMPARISON: May 01, April 30 TECHNIQUE: AP portable chest image was obtained 1508 hours . FINDINGS: Tessio catheter is in place on the right side with the catheter tips in the mid and distal SVC. There is a small pneumothorax seen in the lateral mid and upper right lung field. Review of ned or imaging shows the pneumothorax was present prior to the catheter placement. Pneumothorax is accent uated due to the expiration technique. This is estimated at 10% or less. Enlargement since prior imag ing has not occurred. No left-sided pneumothorax. Left base parenchymal opacification has not changed . IMPRESSION: Small 10% or less right-sided pneumothorax. Tessio catheter is in good position. The pneumothorax pre dates the catheter placement. No evidence for interval enlargement.
--- NOTE | 2018-05-01 16:57 | RAD REPORT ---
EXAM DESCRIPTION: RAD - Fluoroscopy <1 Hour - 05/01/2018 2:46 pm FINDINGS: Two portable C-arm views were obtained during fluoroscopic assisted placement of a Tessio catheter. No suspicious or unexpected finding. Fluoro time was 0.1 minutes.
[2018-05-01] MEDS: ACETAMINOPHEN 500 MG TAB PO PRN (23:47)
[2018-05-02 02:50] VITALS: BMI 22.8
[2018-05-02 05:31] LABS: Absolute Lymphocytes (CBC) 0.7 K/uL (0.7-4.9); Absolute Monocytes 0.6 K/uL (0.1-1.3); Absolute Neutrophil 4.6 K/uL (1.8-8.0); Basophils % 0.5 % (0-1.3); Hematocrit 25.6 % (39.6-49.0); Lymphocytes % 11.5 % (15.3-44.8); Monocytes % 10.3 % (3.3-12.3); RBC Red Blood Cell Count 2.84 M/uL (4.33-5.43)
[2018-05-02 05:44] LABS: Albumin 2.5 g/dL (3.4-5.0); Bilirubin Total 0.4 mg/dL (0.2-1.0); Phosphorus 5.1 mg/dL (2.5-4.9)
[2018-05-02 06:12] LABS: Ferritin 1033.3 ng/mL (26-388); Folic Acid, (Folate) > 20.0 ng/mL (3.1-17.5); Transferrin 130 mg/dL (200-360)
[2018-05-02] MEDS: ACETAMINOPHEN 500 MG TAB PO PRN ×2 (08:06→11:28)
[2018-05-02] MEDS: FUROSEMIDE 20 MG/ 2ML VIAL IV SCH (09:00)
[2018-05-02] MEDS ORDERED: EPOETIN ALFA 10,000 UNIT/ML VIAL SQ SCH (10:00)
--- NOTE | 2018-05-02 10:34 | PN ---
Date of Progress Note: 05/02/2018 Subjective: The patient is awake and alert, feels better after dialysis. No complaints. Objective: Vital Signs: Stable. Afebrile. Imaging: Chest x-ray yesterday after the procedure revealed a 10% pneumothorax. However, that pneum othorax had been present prior to my intervention and had not changed and it was 10%. Dressing is cl keegan, dry, and intact, had minimal bleeding from it and dressing was changed earlier. Assessment: Status post chest tube catheter placement. Recommendation: Medical management and renal follow up. Follow up the patient with chest x-rays and encouraged oxygen incentive spirometry. /MODL Voice ID: [id number] Report ID: [id number]
--- NOTE | 2018-05-02 10:59 | PN ---
Mr. Thomas is feeling better today. He is less fatigued, less dyspneic. I think he probably lost a s ignificant amount of extracellular fluid yesterday during dialysis. His dialysis was accomplished vi a a Tesio catheter put in by Dr. Mena. There were no complications. SH/MODL Voice ID: [id number] Report ID: [id number]
[2018-05-02] MEDS ORDERED: HYDRALAZINE HCL 25 MG TABLET PO PRN (11:20)
[2018-05-02] MEDS ORDERED: DOCUSATE NA/SENNA CONC 1 TAB PO PRN (11:20)
--- NOTE | 2018-05-02 11:29 | P.PN ---
Subjective Date of Service: 05/02/18 Primary Care Provider: Dr Thomas Chief Complaint: Chest pain no new complaints Chest pain resolved trop -ve X3 Bun/cr significantly improved after HD HD now via Rt PC will cont HD MWF Physical Examination - Vital Signs Temperature: 97.6 F Blood Pressure: 119/57 Pulse: 64 Respirations: 20 Pulse Ox (%): 96 - Physical Exam General: In no apparent distress, Oriented x3 HEENT: Atraumatic Neck: Supple, Without JVD or thyroid abnormality Respiratory: Clear to auscultation bilaterally Cardiovascular: No edema, Regular rate/rhythm, Normal S1 S2, No gallops, No rubs - Studies Medications List Reviewed: Yes Assessment And Plan - Current Problems (Diagnosis) (1) Chest pain Current Visit: Yes Status: Acute Qualifiers: Chest pain type: chest pain on breathing Qualified Code(s): R07.1 - Chest pain on breathing; R07.81 - Pleurodynia (2) Hypervolemia Onset Date: 02/15/18 Current Visit: No Status: Acute (3) CAD (coronary artery disease) Onset Date: 06/11/17 Current Visit: No Status: Chronic Qualifiers: Coronary Disease-Associated Artery/Lesion type: [place] artery [place] vs. transplanted heart: [place] heart Associated angina: with stable angina Qualified Code(s): I25.118 - Atherosclerotic heart disease of [place] coronary artery with other forms of angina pectoris (4) ESRD on dialysis Onset Date: 10/12/17 Current Visit: No Status: Chronic - Plan AN 87-year-old man with past medical history of hypertension, ESRD on home HD MWF via lt AVF , CHF on Home o2, coronary artery disease complicated with congestive heart failure, and skin cancer. Pt was complaining of chest pain started yesterday during HD pt didnt have full HD treatments this wk , due to hypertotension and access infiltration in ER Bun 91/Cr 6.7, CXR pulmonary edema No palpitation, nausea, vomiting or diarrhea ESRD on HD MWF Access infiltrated HD now via Rt Perm cath Will cont HD MWF Chest pain , resolved trop -ve x3 Anemia on Epo b12 and folate ok ferin .1000, not candidate for IV iron MBD High phos Will check PTH resume binders
[2018-05-02] MEDS ORDERED: CA ACETATE 667 MG CAP PO SCH (12:00)
[2018-05-02 12:53] VITALS: BP 120/82; TEMP 98.3
--- NOTE | 2018-05-02 13:08 | RAD REPORT ---
EXAM DESCRIPTION: RAD - Chest Pa And Lat (2 Views) - 05/02/2018 8:56 am CLINICAL HISTORY: Pleural Effusion Chest pain. COMPARISON: Chest Single View dated 05/01/2018; Chest Pa And Lat (2 Views) dated 05/01/2018; Chest S ranjit View dated 04/30/2018; Chest Pa And Lat (2 Views) dated 02/16/2018; Chest Lateral Decubitus date d 02/16/2018 FINDINGS: Small right-sided pneumothorax is again seen, however, mildly reduced in size since compar ative study, estimated at about 5% of lung volume. Small bilateral pleural effusions are present, gre ater on the left. The heart is mildly enlarged in size. Right-sided venous catheter has tip in the SV C.
[2018-05-02 13:40] VITALS: O2SAT 94
--- NOTE | 2018-05-02 13:56 | P.DS ---
Admission Date: 04/30/18 Discharge Date: 05/02/18 Primary Care Provider: Dr Thomas Disposition: ROUTINE DISCHARGE Discharge Condition: GOOD Reason for Admission: Chest pain - Problems (1) Chest pain Current Visit: Yes Status: Acute Qualifiers: Chest pain type: chest pain on breathing Qualified Code(s): R07.1 - Chest pain on breathing; R07.81 - Pleurodynia (2) Pleural effusion Current Visit: No Status: Chronic (3) ESRD on dialysis Onset Date: 10/12/17 Current Visit: No Status: Chronic (4) Anemia in chronic kidney disease Onset Date: 10/26/17 Current Visit: No Status: Chronic Qualifiers: Chronic kidney disease stage: on chronic dialysis Qualified Code(s): N18.6 - End stage renal disease; D63.1 - Anemia in chronic kidney disease; Z99.2 - Dependence on renal dialysis (5) CAD (coronary artery disease) Onset Date: 06/11/17 Current Visit: No Status: Chronic Qualifiers: Coronary Disease-Associated Artery/Lesion type: [place] artery [place] vs. transplanted heart: [place] heart Associated angina: with stable angina Qualified Code(s): I25.118 - Atherosclerotic heart disease of [place] coronary artery with other forms of angina pectoris (6) CHF (congestive heart failure) Onset Date: 10/26/17 Current Visit: No Status: Chronic Qualifiers: Heart failure type: systolic Heart failure chronicity: chronic Qualified Code(s): I50.22 - Chronic systolic (congestive) heart failure (7) HTN (hypertension) Onset Date: 06/11/17 Current Visit: No Status: Chronic Qualifiers: Hypertension type: essential hypertension Qualified Code(s): I10 - Essential (primary) hypertension (8) Hyperlipidemia Onset Date: 06/11/17 Current Visit: No Status: Chronic Qualifiers: Hyperlipidemia type: mixed hyperlipidemia Qualified Code(s): E78.2 - Mixed hyperlipidemia Brief History of Present Illness: This is a 87-year-old male with significant past medical history of end-stage renal disease on hemodialysis Thursday, congestive heart failure , CAD, hypertension, GERD, recurrent pleural effusion volume overload state who presented to the ED complaining of having some chest tightness that has been going on for past couple of days. Patient's family at bedside stated that patient usually gets this chest tightness when there is a lot of fluid that is built around his lungs and he is unable to take a deep breath in. Patient has not been able to finish his dialysis session for past 3 days due to several reasons. The 1st session has been disconnected due to malfunction of his catheters the 2nd was unknown reason and on the 3rd 1 because patient started having chest tightness. Again patient was decided to come to the ER for further workup. Patient was seen last visit for similar symptoms and was found to have pair of fusion that got worse due to volume overload. At that time pulmonology was consulted who recommended he margin dialysis versus IV Lasix. Patient had marked improvement after the treatment and did not require any thoracentesis. In the ER today patient was again found to have chest tightness and on imaging and lab work was found to have volume overload with worsening of the right- sided pleural effusion. Patient thus was admitted for further care for his Pleural Effusion and chest tightness. Hospital Course: Overall during the hospital stay patient remained stable Patient was initially admitted to the hospital for chest tightness most likely secondary to volume overload 2.2 to failed Dialysis session due to non working Fistula. After admission patient had a general surgery consulted here in the hospital will put in a TESIO catheter. Patient is to get hemodialysis through the CATHETER AT THIS TIME. PATIENT PER NEPHROLOGY CAN BE DISCHARGED HOME UNDER STABLE CONDITION. PATIENT WILL HAVE CONSULTED VASCULAR SURGEON ABOUT 1-2 WEEKS POST DISCHARGE FOR OUTPATIENT REVISION OF HIS PERMANENT CATHETER. Family and patient demonstrated understanding and thus patient was discharged home under stable condition Vital Signs/Physical Exam: Temp Pulse Resp BP Pulse Ox 98.3 F 72 18 120/82 94 05/02/18 12:00 05/02/18 12:00 05/02/18 12:00 05/02/18 12:00 05/02/18 12:00 General: Alert, In no apparent distress HEENT: Atraumatic, PERRLA, EOMI Neck: Supple, JVD not distended Respiratory: Clear to auscultation bilaterally, Normal air movement Cardiovascular: Regular rate/rhythm, Normal S1 S2 Gastrointestinal: Normal bowel sounds, No tenderness Musculoskeletal: No tenderness Integumentary: No rashes Neurological: Normal speech, Normal tone, Normal affect Lymphatics: No axilla or inguinal lymphadenopathy Laboratory Data at Discharge: WBC 6.3 K/uL (4.3-10.9) 05/02/18 04:50 Hgb 8.7 g/dL (13.6-17.9) L 05/02/18 04:50 Hct 25.6 % (39.6-49.0) L 05/02/18 04:50 Plt Count 262 K/uL (152-406) 05/02/18 04:50 PT 15.6 SECONDS (9.5-12.5) H 04/30/18 14:08 INR 1.32 04/30/18 14:08 Sodium 136 mmol/L (136-145) 05/02/18 04:50 Potassium 4.0 mmol/L (3.5-5.1) 05/02/18 04:50 BUN 43 mg/dL (7-18) H D 05/02/18 04:50 Creatinine 4.30 mg/dL (0.55-1.3) H D 05/02/18 04:50 Glucose 104 mg/dL (74-106) 05/02/18 04:50 Phosphorus 5.1 mg/dL (2.5-4.9) H 05/02/18 04:50 Magnesium 2.0 mg/dL (1.8-2.4) 05/02/18 04:50 Total Bilirubin 0.4 mg/dL (0.2-1.0) 05/02/18 04:50 AST 18 U/L (15-37) 05/02/18 04:50 ALT 22 U/L (12-78) 05/02/18 04:50 Alkaline Phosphatase 100 U/L (45-117) 05/02/18 04:50 Troponin I < 0.02 ng/mL (0.0-0.045) 05/01/18 13:25 Home Medications: Albuterol Sulfate [Albuterol Sulfate 0.083% Neb Soln] 1 vial IH Q4H PRN Amino AC/Protein Hydr/Whey Pro [Liquacel Liquid Protein] 2 tbsp PO DAILY Aspirin [Adult Aspirin] 1 tab PO DAILY 04/30/18 Carvedilol [Coreg] 1 tab PO BID 04/30/18 Cholecalciferol (Vitamin D3) [Vitamin D3] 1 tab PO DAILY 04/30/18 Docusate/Senna [Senokot-S*] 1 tab PO BEDTIME PRN 04/30/18 Folic Acid 1 tab PO DAILY 04/30/18 Hydralazine [Apresoline*] 1 tab PO TID PRN 04/30/18 Lisinopril 1 tab PO DAILY 04/30/18 Multivit-Min/Folic/Vit K/Lycop [Men's Multivitamin Tablet] 1 tab PO DAILY Simvastatin 1 tab PO BEDTIME 04/30/18 Vit A/Vit C/Vit E/Zinc/Copper [Preservision Areds Softgel] 1 tab PO BID Diet: Regular Activity: Ad ashley Followup: Reymundo Marie MD [ACTIVE - CAN ADMIT] - 1 Week Roque Santiago MD [ACTIVE - CAN ADMIT] - 1 Week
[2018-05-02] MEDS ORDERED: ATORVASTATIN 10 MG TAB PO SCH (21:00)
[2018-05-02] MEDS ORDERED: CARVEDILOL 12.5 MG TAB PO SCH (21:00)
[2018-05-03] MEDS ORDERED: LISINOPRIL 10 MG TAB PO SCH (09:00)
[2018-05-03] MEDS ORDERED: PROTEIN HYDR PO SCH (09:00)
[2018-05-03] MEDS ORDERED: AMINO AC PO SCH (09:00)
[2018-05-03] MEDS ORDERED: VITAMIN D 1000 UNIT TAB PO SCH (09:00)
[2018-05-03] MEDS ORDERED: WHEY PRO PO SCH (09:00)
[2018-05-03] MEDS ORDERED: ASPIRIN EC 81 MG TAB PO SCH (09:00)
[2018-05-03] MEDS ORDERED: FOLIC ACID 1 MG TABLET PO SCH (09:00)
[2018-05-05 03:34] LABS: HBsAG Nonreactive (Nonreactive)
== END 2018-05-02 14:32 | disposition home or self-care (01) ==
LOC: ER 12:43 → ERHOLD 16:13 → 2ND 20:07
PROVIDERS: ADMIT Family Medicine; ATTEND Family Medicine
PROC: B513ZZA Fluoroscopy of Right Jugular Veins, Guidance (ICD-10-PCS; 2018-05-01)
PROC: 05HM33Z Insertion of Infusion Device into Right Internal Jugular Vein, Percutaneous Approach (ICD-10-PCS; principal; 2018-05-01 14:00)
DX: R07.81 Pleurodynia (principal); J93.9 Pneumothorax, unspecified; I13.2 Hypertensive heart and chronic kidney disease with heart failure and with stage 5 chronic kidney disease, or end stage renal disease; N18.6 End stage renal disease; I50.22 Chronic systolic (congestive) heart failure; D63.1 Anemia in chronic kidney disease; I25.10 Atherosclerotic heart disease of native coronary artery without angina pectoris; E78.5 Hyperlipidemia, unspecified; Z99.2 Dependence on renal dialysis; Z85.038 Personal history of other malignant neoplasm of large intestine
CPT/HCPCS: 36415 ×2; 36565; 71045 ×2; 71046 ×2; 77001; 80048; 80053 ×2; 80076; 82607; 82728; 82746; 83540; 83735 ×3; 83880; 84100 ×2; 84443; 84466; 84484 ×4; 85025 ×3; 85610; 86317; 86704; 86706; 87340; 90935; 93005; 99285; C1752; G0378 ×2; J0360; J0690; J1644 ×3; J2250; Q4081; 76000; 81003; 81015; J1940

== ENCOUNTER 2018-05-19 09:05 | Emergency (ER) | payer OTHER ==
--- OUTSIDE RECORDS SUMMARY | 2018-05-19 09:07 | XMS REPORT | Clinical Summary ---
:1930 Author Organization [facility] [employer] Address [address] [place] [address] Care Team Providers Name Role Phone Asked, [...] tablet 0 Active ACID/MULTIVIT,IRON by mouth daily. 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 (LASIX) Take 80 mg [...] Encounter General Surgery Kee Curran MD after 05/18/2017 Social History Tobacco Use Types Packs/Day Years [...] Taken Blood Pressure 168/72 08/12/2017 6:17 PM INTERNATIONAL MARKETING COORDINATOR Pulse 64 08/12/2017 6:17 PM INTERNATIONAL MARKETING COORDINATOR Temperature 37.1 C (98.7 F) 08/12/2017 6:17 PM INTERNATIONAL MARKETING COORDINATOR Respiratory Rate 16 08/12/2017 6:17 PM INTERNATIONAL MARKETING COORDINATOR Oxygen Saturation 96% 08/12/2017 6:17 PM INTERNATIONAL MARKETING COORDINATOR Inhaled Oxygen Concentration - - Weight 81.5 [...] Procedure Name Priority Date/Time Associated Diagnosis Comments [place] AN ELECTIVE Routine 08/12/2017 3:10 PM SUPRAGLOTTIC AIRWAY INTERNATIONAL MARKETING COORDINATOR Procedure Note - Wilmer Contreras MD - 08/12/2017 3:10 PM INTERNATIONAL MARKETING COORDINATOR Airway Performed by: DARIA HUERTA Authorized by: DARIA HUERTA Location: OR Urgency: Elective Difficult Airway: No Anesthesiologist: DARIA HUERTA Performed by: anesthesiologist Preoxygenated with 100% O2: Yes C-spine Precautions Maintained Throughout: Yes Mask Ventilation: Easy mask Final Airway Type: Supraglottic airway Final LMA: Classic LMA Size: 4 Number of Attempts at Approach: 1 CREATION, AV FISTULA 08/12/2017 2:45 PM INTERNATIONAL MARKETING COORDINATOR End stage renal disease Case Notes C-ARM Special Needs C-ARM HEMOGLOBIN, SYRINGE STAT 08/12/2017 11:45 AM INTERNATIONAL MARKETING COORDINATOR GLUCOSE LEVEL, SYRINGE STAT 08/12/2017 11:45 AM INTERNATIONAL MARKETING COORDINATOR POTASSIUM, SYRINGE STAT 08/12/2017 11:45 AM INTERNATIONAL MARKETING COORDINATOR after 05/18/2017 Results Potassium, syringe (08/12/2017 11:45 AM INTERNATIONAL MARKETING COORDINATOR) Potassium, syringe 4.7 3.5 - 5.0 mEq/L [facility] DEPARTMENT OF PATHOLOGY AND GENOMIC MEDICINE Specimen Blood Performing Organization Address [facility] [place] Phone Number [facility] DEPARTMENT OF PATHOLOGY AND [address] [place] [phone] GENOMIC MEDICINE Hemoglobin, syringe (08/12/2017 11:45 AM INTERNATIONAL MARKETING COORDINATOR) Hemoglobin, syringe 9.3 (L) 14.0 - 18.0 g/dL [facility] DEPARTMENT OF PATHOLOGY AND GENOMIC MEDICINE Specimen Blood Performing Organization Address City/[facility] [place] Phone Number [facility] DEPARTMENT OF PATHOLOGY AND [address] [place] [phone] GENOMIC MEDICINE Glucose level, syringe (08/12/2017 11:45 AM INTERNATIONAL MARKETING COORDINATOR) Glucose, syringe 96 65 - 99 mg/dL [facility] DEPARTMENT OF PATHOLOGY AND GENOMIC MEDICINE Specimen Blood Performing Organization Address [facility] [place] Phone Number [facility] DEPARTMENT OF PATHOLOGY AND [address] [place] [phone] GENOMIC MEDICINE after 05/18/2017 Insurance Payer Benefit Plan / Group Subscriber ID Type Phone Address MEDICARE MEDICARE PART A AND B xxxxxxxxxx Medicare [place], [place] AETNA A[employer] PPO OPEN CHOICE xxxxxxxxx PPO Advance Directives Patient has advance care planning documents on file. For more information, please contact:[place] [address]
[2018-05-19 09:55] LABS: Absolute Monocytes 0.6 K/uL (0.1-1.3); Basophils % 1.2 % (0-1.3); Eosinophils % 4.6 % (0-4.4); Hematocrit 31.4 % (39.6-49.0); MCH 30.1 pg (27.0-35.0); MCV 93.4 fL (80-100); MPV 7.2 fL (7.6-11.3); Monocytes % 10.7 % (3.3-12.3); RBC Red Blood Cell Count 3.36 M/uL (4.33-5.43)
[2018-05-19 10:22] LABS: Albumin 2.7 g/dL (3.4-5.0); Bilirubin Total 0.4 mg/dL (0.2-1.0); Potassium 4.2 mmol/L (3.5-5.1); Protein, Total 7.5 g/dL (6.4-8.2)
--- NOTE | 2018-05-19 10:56 | RAD REPORT ---
EXAM DESCRIPTION: RAD - Chest Single View - 05/19/2018 10:39 am CLINICAL HISTORY: verify line placement Chest pain. COMPARISON: Chest Pa And Lat (2 Views) dated 05/02/2018; Chest Single View dated 05/01/2018; Chest P a And Lat (2 Views) dated 05/01/2018; Chest Single View dated 04/30/2018 FINDINGS: Portable technique limits examination quality. Previously noted minimal right-sided pneumothorax appears resolved. Opacities in both lung bases have a relatively chronic appearance probably representing small amounts of pleural fluid. The heart is m ildly enlarged in size. Right-sided dialysis catheter has tip in the SVC. No new catheter tubing is s een.
--- NOTE | 2018-05-19 11:11 | RAD REPORT ---
EXAM DESCRIPTION: US - UPPER EXTREMITY VENOUS UNILATE - 05/19/2018 11:03 am CLINICAL HISTORY: pain, swelling, dialysis cath Right upper extremity swelling COMPARISON: Extrem Venous W Compress Viet dated 06/15/2017 FINDINGS: Right upper extremity venous system was interrogated with Doppler technique. Normal flow, compressibility and augmentation was noted. There is no DVT present. IMPRESSION: No evidence of right upper extremity deep venous thrombosis.
--- NOTE | 2018-05-19 11:17 | EDPHYS ---
Physician Documentation [facility] Name: Evans Thomas Age: 87 yrs Sex: Male : 1930 Arrival Date: 05/19/2018 Time: 09:07 Bed 8 Private MD: Evans Thomas E ED Physician Mg Collado HPI: 05/19 10:17 This 87 yrs old Male presents to ER via Wheelchair with complaints of Neck jr8 swelling. 10:17 Family and patient noticed that right side of neck had swollen area that he did not jr8 have on Thursday. Patient has dialysis catheter on right side. Had dialysis on Thursday with no complications. Denies fevers or chills. Only pain to swollen region of neck . Severity of symptoms: At their worst the symptoms were mild in the emergency department the symptoms are unchanged. The patient has not experienced similar symptoms in the past. The patient has not recently seen a physician. Historical: - Allergies: 09:32 Iodine; iw 09:32 Doxycycline; iw - Home Meds: :32 carvedilol 12.5 mg Oral tab 2 times per day [Active]; lisinopril 10 mg Oral tab 1 tab iw once daily [Active]; Zocor 20 mg Oral tab 1 tab once daily [Active]; folic acid 1 mg Oral tab 1 tab once daily [Active]; hydralazine 25 mg Oral tab 1 tab three times daily. Hold if SBP <140 [Active]; aspirin 81 mg Oral TbEC 1 tab once daily [Active]; PreserVision AREDS 7,160-113-100 wcke-wu-stci oral tab twice a day [Active]; Men's Multivitamin Gummies 200 mcg Oral chew daily [Active]; Vitamin D3 1,000 unit oral tab daily [Active]; Liquacel oral liqd daily [Active]; albuterol sulfate 2.5 mg/0.5 mL Inhl nebu 0.5 mL 4 times per day [Active]; - PMHx: 09:32 ADD/ADHD; Anemia; Angina; CAD; CHF; colon cancer; ESRD; High Cholesterol; Hypertension; iw Myocardial infarction; Pneumonia; - PSHx: 09:32 Heart stents; partial colon removal; iw - Immunization history:: Adult Immunizations not up to date. - Social history:: Smoking status: Patient/guardian denies using tobacco. - Ebola Screening: : Patient negative for fever greater than or equal to 101.5 degrees Fahrenheit, and additional compatible Ebola Virus Disease symptoms Patient denies exposure to infectious person Patient denies travel to an Ebola-affected area in the 21 days before illness onset No symptoms or risks identified at this time. ROS: 10:17 Eyes: Negative for injury, pain, redness, and discharge, ENT: Negative for injury, jr8 pain, and discharge, Neck: Negative for injury, pain, and swelling, Cardiovascular: Negative for chest pain, palpitations, and edema, Respiratory: Negative for shortness of breath, cough, wheezing, and pleuritic chest pain, Abdomen/GI: Negative for abdominal pain, nausea, vomiting, diarrhea, and constipation, Back: Negative for injury and pain, MS/Extremity: Negative for injury and deformity, Skin: Negative for injury, rash, and discoloration, Neuro: Negative for headache, weakness, numbness, tingling, and seizure. Exam: 10:17 Eyes: Pupils equal round and reactive to light, extra-ocular motions intact. Lids and jr8 lashes normal. Conjunctiva and sclera are non-icteric and not injected. Cornea within normal limits. Periorbital areas with no swelling, redness, or edema. ENT: Nares patent. No nasal discharge, no septal abnormalities noted. Tympanic membranes are normal and external auditory canals are clear. Oropharynx with no redness, swelling, or masses, exudates, or evidence of obstruction, uvula midline. Mucous membranes moist. Cardiovascular: Regular rate and rhythm with a normal S1 and S2. No gallops, murmurs, or rubs. Normal PMI, no JVD. No pulse deficits. Respiratory: Lungs have equal breath sounds bilaterally, clear to auscultation and percussion. No rales, rhonchi or wheezes noted. No increased work of breathing, no retractions or nasal flaring. Abdomen/GI: Soft, non-tender, with normal bowel sounds. No distension or tympany. No guarding or rebound. No evidence of tenderness throughout. Back: No spinal tenderness. No costovertebral tenderness. Full range of motion. Skin: Warm, dry with normal turgor. Normal color with no rashes, no lesions, and no evidence of cellulitis. MS/ Extremity: Pulses equal, no cyanosis. Neurovascular intact. Full, normal range of motion. Neuro: Awake and alert, GCS 15, oriented to person, place, time, and situation. Cranial nerves II-XII grossly intact. Motor strength 5/5 in all extremities. Sensory grossly intact. Cerebellar exam normal. Normal gait. 10:17 Neck: External neck: Patient has palpable catheter to right side starting below the clavicle and go superiorly to IJ region. Tenderness to area. No erythema or edema noted , Thyroid: appears normal, no enlargement, no nodules, no tenderness, Trachea: is midline with no obvious abnormalities, ROM/movement: is normal, Lymph nodes: no appreciated lymphadenopathy. Vital Signs: 09:23 BP 173 / 49; Pulse 62; Resp 18; Temp 96.8(TE); Pulse Ox 100% on R/A; Weight 76.2 kg; hj Height 5 ft. 10 in. (177.80 cm); 10:12 BP 151 / 45; Pulse 58; Resp 18; Pulse Ox 100% on R/A; hj 11:04 BP 163 / 58; Pulse 55; Resp 18; Pulse Ox 100% on R/A; hj 09:23 Body Mass Index 24.11 (76.20 kg, 177.80 cm) MDM: 09:23 Patient medically screened. 8 11:09 Data reviewed: vital signs, nurses notes, lab test result(s), radiologic studies, plain jr8 films, ultrasound. Data interpreted: Pulse oximetry: on room air is 100 %. Interpretation: normal. Counseling: I had a detailed discussion with the patient and/or guardian regarding: the historical points, exam findings, and any diagnostic results supporting the discharge/admit diagnosis, lab results, radiology results, the need for outpatient follow up, a general surgeon, to return to the emergency department if symptoms worsen or persist or if there are any questions or concerns that arise at home. ED course: Discussed with family and patient that the bend in the catheter and moved more superficially which has cause the catheter pain and them to be able to see catheter at neck level. No dvt or other suspicious findings noted. Patient needs to f/u with surgeon who put it in . 05/19 09:36 Order name: CBC with Diff; Complete Time: 10:16 jr8 05/19 09:36 Order name: CMP; Complete Time: 10:28 jr8 05/19 09:36 Order name: IV; Complete Time: 09:41 jr8 05/19 09:36 Order name: XRAY Chest (1 view); Complete Time: 11:16 jr8 05/19 10:35 Order name: UPPER EXTREMITY VENOUS UNILATE; Complete Time: 11:16 EDMS Administered Medications: No medications were administered Disposition: 11:26 Co-signature as Attending Physician, Mg Collado MD. rn Disposition: 05/19/18 11:16 Discharged to Home. Impression: Other complication of vascular dialysis catheter. - Condition is Stable. - Discharge Instructions: Hemodialysis. - Medication Reconciliation Form, Thank You Letter, Antibiotic Education, Prescription Opioid Use form. - Follow up: Arnie Mena MD; When: 2 - 3 days; Reason: Recheck today's complaints, Continuance of care, Re-evaluation by your physician. - Problem is new. - Symptoms have improved. Signatures: Dispatcher [employer] [facility] Bridgette Granger RN RN iw Nieto, Roman, MD MD rn Roszak, Josh, PA PA jr8 Elvis Easley RN RN Corrections: (The following items were deleted from the chart) 10:35 10:32 Extremity Venous Uni [id number] ordered. [facility] EDRI 11:24 11:16 05/19/2018 11:16 Discharged to Home. Impression: Other complication of vascular hj dialysis catheter. Condition is Stable. Forms are Medication Reconciliation Form, Thank You Letter, Antibiotic Education, Prescription Opioid Use. Follow up: Dr. Arnie Mena; When: 2 - 3 days; Reason: Recheck today's complaints, Continuance of care, Re-evaluation by your physician. Problem is new. Symptoms have improved. jr8
--- NOTE | 2018-05-19 11:17 | ER ---
Nurse's Notes [facility] Name: Evans Thomas Age: 87 yrs Sex: Male : 1930 Arrival Date: 05/19/2018 Time: 09:07 Bed 8 Private MD: Evans Thomas E Diagnosis: Other complication of vascular dialysis catheter Presentation: 05/19 09:26 Presenting complaint: Patient states: has had pain and tenderness to dialysis catheter iw in chest, today he noticed that vein in his neck is hard, last dialysis was Thursday, due for dialysis today, sees Dr. Contreras, catheter was placed the week of by Dr. Mena. Transition of care: patient was not received from another setting of care. Onset of symptoms was May 18, 2018. Risk Assessment: Do you want to hurt yourself or someone else? Patient reports no desire to harm self or others. Initial Sepsis Screen: Does the patient meet any 2 criteria? No. Patient's initial sepsis screen is negative. Does the patient have a suspected source of infection? No. Patient's initial sepsis screen is negative. Care prior to arrival: None. 09:26 Method Of Arrival: Wheelchair iw 09:26 Acuity: DWAIN 3 iw Triage Assessment: 09:35 General: Appears in no apparent distress. uncomfortable, Behavior is calm, cooperative, hj appropriate for age. Pain: Complains of pain in neck. Historical: - Allergies: 09:32 Iodine; iw 09:32 Doxycycline; iw - Home Meds: 09:32 carvedilol 12.5 mg Oral tab 2 times per day [Active]; lisinopril 10 mg Oral tab 1 tab iw once daily [Active]; Zocor 20 mg Oral tab 1 tab once daily [Active]; folic acid 1 mg Oral tab 1 tab once daily [Active]; hydralazine 25 mg Oral tab 1 tab three times daily. Hold if SBP <140 [Active]; aspirin 81 mg Oral TbEC 1 tab once daily [Active]; PreserVision AREDS 7,160-113-100 rhme-yq-ejrm oral tab twice a day [Active]; Men's Multivitamin Gummies 200 mcg Oral chew daily [Active]; Vitamin D3 1,000 unit oral tab daily [Active]; Liquacel oral liqd daily [Active]; albuterol sulfate 2.5 mg/0.5 mL Inhl nebu 0.5 mL 4 times per day [Active]; - PMHx: 09:32 ADD/ADHD; Anemia; Angina; CAD; CHF; colon cancer; ESRD; High Cholesterol; Hypertension; iw Myocardial infarction; Pneumonia; - PSHx: 09:32 Heart stents; partial colon removal; iw - Immunization history:: Adult Immunizations not up to date. - Social history:: Smoking status: Patient/guardian denies using tobacco. - Ebola Screening: : Patient negative for fever greater than or equal to 101.5 degrees Fahrenheit, and additional compatible Ebola Virus Disease symptoms Patient denies exposure to infectious person Patient denies travel to an Ebola-affected area in the 21 days before illness onset No symptoms or risks identified at this time. Screenin:35 Abuse screen: Denies threats or abuse. Denies injuries from another. Nutritional hj screening: No deficits noted. Tuberculosis screening: No symptoms or risk factors identified. Fall Risk None identified. Assessment: 09:37 General: Appears in no apparent distress. uncomfortable, Behavior is calm, cooperative, hj appropriate for age. Pain: Complains of pain in neck. Neuro: Level of Consciousness is awake, alert, obeys commands, Oriented to person, place, time, situation, Appropriate for age. Cardiovascular: Capillary refill < 3 seconds Patient's skin is warm and dry. Respiratory: Airway is patent Respiratory effort is even, unlabored, Respiratory pattern is regular, symmetrical. GI: No signs and/or symptoms were reported involving the gastrointestinal system. : No signs and/or symptoms were reported regarding the genitourinary system. EENT: No signs and/or symptoms were reported regarding the EENT system. Derm: No signs and/or symptoms reported regarding the dermatologic system. Musculoskeletal: No signs and/or symptoms reported regarding the musculoskeletal system. 10:12 Reassessment: Patient and/or family updated on plan of care and expected duration. Pain hj level reassessed. Patient is alert, oriented x 3, equal unlabored respirations, skin warm/dry/pink. awaiting results;. 10:39 Reassessment: provider in room for results and POC;. hj 11:04 Reassessment: USD tech in room;. hj Vital Signs: 09:23 BP 173 / 49; Pulse 62; Resp 18; Temp 96.8(TE); Pulse Ox 100% on R/A; Weight 76.2 kg; hj Height 5 ft. 10 in. (177.80 cm); 10:12 BP 151 / 45; Pulse 58; Resp 18; Pulse Ox 100% on R/A; hj 11:04 BP 163 / 58; Pulse 55; Resp 18; Pulse Ox 100% on R/A; hj 09:23 Body Mass Index 24.11 (76.20 kg, 177.80 cm) ED Course: 09:07 Patient arrived in ED. mr 09:07 Evans Thomas MD is Private Physician. mr 09:11 Elvis Easley, ROBERT is Primary Nurse. hj 09:14 Rick Yeboah PA is PHCP. jr8 09:14 Mg Collado MD is Attending Physician. jr8 09:29 Triage completed. iw 09:32 Arm band placed on. iw 09:36 Patient has correct armband on for positive identification. Bed in low position. Call light in reach. Side rails up X 1. Adult w/ patient. 09:41 Initial lab(s) drawn, by me, sent to lab. Inserted saline lock: 20 gauge in right dh3 antecubital area, using aseptic technique. Blood collected. 10:39 XRAY Chest (1 view) In Process Unspecified. EDMS 11:03 UPPER EXTREMITY VENOUS UNILATE In Process Unspecified. EDMS 11:15 Arnie Mena MD is Referral Physician. jr8 11:23 No provider procedures requiring assistance completed. IV discontinued, intact, hj bleeding controlled, No redness/swelling at site. Pressure dressing applied. Administered Medications: No medications were administered Outcome: 11:16 Discharge ordered by . jr8 11:23 Discharged to home ambulatory, with family. hj 11:23 Condition: stable 11:23 Discharge instructions given to patient, family, Instructed on discharge instructions, follow up and referral plans. Demonstrated understanding of instructions, follow-up care. 11:24 Patient left the ED. Signatures: Dispatcher [employer] STACYCO Reinaldo Misa herrera Bridgette Granger, RN RN Rick Yeboah PA PA jr8 Elvis Easley RN RN Cristela Dangelonna [facility] Corrections: (The following items were deleted from the chart) 09:26 09:23 BP 173 / 49; Pulse 62bpm; Resp 18bpm; Pulse Ox 100% RA; hj hj
[2018-05-19 11:31] VITALS: TEMP 96.8; O2SAT 100
[2018-05-19 11:34] VITALS: BP 163/58
== END 2018-05-19 11:24 | disposition home or self-care (01) ==
LOC: ER 09:05
DX: T82.898A Other specified complication of vascular prosthetic devices, implants and grafts, initial encounter (principal); I12.0 Hypertensive chronic kidney disease with stage 5 chronic kidney disease or end stage renal disease; N18.6 End stage renal disease; I25.10 Atherosclerotic heart disease of native coronary artery without angina pectoris; I50.9 Heart failure, unspecified; I25.2 Old myocardial infarction; Z99.2 Dependence on renal dialysis; Z85.038 Personal history of other malignant neoplasm of large intestine; Z79.82 Long term (current) use of aspirin; Z88.1 Allergy status to other antibiotic agents; Z91.048 Other nonmedicinal substance allergy status
CPT/HCPCS: 36415; 71045; 80053; 85025; 93971; 99283

== ENCOUNTER 2018-06-10 09:36 | Day surgery (SDC) | payer OTHER ==
--- OUTSIDE RECORDS SUMMARY | 2018-06-10 09:39 | XMS REPORT | Clinical Summary ---
:1930 Author Organization [facility] Address [address] [place] [address] Care Team Providers Name Role Phone Asked, [...] tablet 0 Active ACID/MULTIVIT,IRON by mouth daily. ,TALENT SOURCER (CENTRUM ORAL) furosemide (LASIX) Take 80 mg [...] Encounter General Surgery Kee Curran MD after 06/09/2017 Social History Tobacco Use Types Packs/Day Years [...] Taken Blood Pressure 168/72 08/12/2017 6:17 PM PIE CRUST MIXER Pulse 64 08/12/2017 6:17 PM PIE CRUST MIXER Temperature 37.1 C (98.7 F) 08/12/2017 6:17 PM PIE CRUST MIXER Respiratory Rate 16 08/12/2017 6:17 PM PIE CRUST MIXER Oxygen Saturation 96% 08/12/2017 6:17 PM PIE CRUST MIXER Inhaled Oxygen Concentration - - Weight 81.5 kg (179 lb 9.6 oz) 10/08/2017 2:56 PM CDT Height 177.8 cm (5' 10") 10/08/2017 2:56 PM CDT Body Mass Index 25.77 10/08/2017 2:56 PM CDT Plan of Treatment Health Maintenance Due Date Last Done Comments SHINGLES VACCINES (1 of 2) 1980 PNEUMOCOCCAL POLYSACCHARIDE VACCINE AGE 65 AND OVER 1995 PNEUMOCOCCAL-13 1995 INFLUENZA VACCINE 01/06/2018 Procedures Procedure Name Priority Date/Time Associated Diagnosis Comments UT AN ELECTIVE Routine 08/12/2017 3:10 PM SUPRAGLOTTIC AIRWAY PIE CRUST MIXER Procedure Note - Wilmer Contreras MD - 08/12/2017 3:10 PM PIE CRUST MIXER Airway Performed by: DARIA HUERTA Authorized by: DARIA HUERTA Location: OR Urgency: Elective Difficult Airway: No Anesthesiologist: DARIA HUERTA Performed by: anesthesiologist Preoxygenated with 100% O2: Yes C-spine Precautions Maintained Throughout: Yes Mask Ventilation: Easy mask Final Airway Type: Supraglottic airway Final LMA: Classic LMA Size: 4 Number of Attempts at Approach: 1 CREATION, AV FISTULA 08/12/2017 2:45 PM PIE CRUST MIXER End stage renal disease Case Notes C-ARM Special Needs C-ARM HEMOGLOBIN, SYRINGE STAT 08/12/2017 11:45 AM PIE CRUST MIXER GLUCOSE LEVEL, SYRINGE STAT 08/12/2017 11:45 AM PIE CRUST MIXER POTASSIUM, SYRINGE STAT 08/12/2017 11:45 AM PIE CRUST MIXER after 06/09/2017 Results Potassium, syringe (08/12/2017 11:45 AM PIE CRUST MIXER) Potassium, syringe 4.7 3.5 - 5.0 mEq/L [facility] DEPARTMENT OF PATHOLOGY AND GENOMIC MEDICINE Specimen Blood Performing Organization Address [facility] Phone Number [facility] DEPARTMENT OF PATHOLOGY AND [address] [place], [place] [phone] GENOMIC MEDICINE Hemoglobin, syringe (08/12/2017 11:45 AM PIE CRUST MIXER) Hemoglobin, syringe 9.3 (L) 14.0 - 18.0 g/dL [facility] DEPARTMENT OF PATHOLOGY AND GENOMIC MEDICINE Specimen Blood Performing Organization Address City/[facility]/Zipcode Phone Number [facility] DEPARTMENT OF PATHOLOGY AND [address] [place] [phone] GENOMIC MEDICINE Glucose level, syringe (08/12/2017 11:45 AM PIE CRUST MIXER) Glucose, syringe 96 65 - 99 mg/dL [facility] DEPARTMENT OF PATHOLOGY AND GENOMIC MEDICINE Specimen Blood Performing Organization Address City/[facility] Phone Number [facility] DEPARTMENT OF PATHOLOGY AND [address] [place] [phone] GENOMIC MEDICINE after 06/09/2017 Insurance Payer Benefit Plan / Group Subscriber ID Type Phone Address MEDICARE MEDICARE PART A AND B xxxxxxxxxx Medicare [place], [place] AETNA AETNA PPO OPEN CHOICE xxxxxxxxx PPO Advance Directives Patient has advance care planning documents on file. For more information, please contact:Rik Lao[address] [place] [address]
[2018-06-10 09:55] LABS: Absolute Monocytes 0.5 K/uL (0.1-1.3); Absolute Neutrophil 3.5 K/uL (1.8-8.0); Basophils % 0.9 % (0-1.3); Eosinophils % 3.5 % (0-4.4); Hematocrit 32.2 % (39.6-49.0); Lymphocytes % 18.5 % (15.3-44.8); MPV 7.3 fL (7.6-11.3); Monocytes % 9.9 % (3.3-12.3); RBC Red Blood Cell Count 3.46 M/uL (4.33-5.43)
[2018-06-10] MEDS ORDERED: CEFAZOLIN 1GM (PREMIX IV) 1 GM/50 ML BAG ONE (10:03)
[2018-06-10] MEDS ORDERED: NA CHLORIDE 0.9% 500 ML ONE (10:03)
[2018-06-10 10:13] LABS: Potassium 4.1 mmol/L (3.5-5.1)
[2018-06-10] MEDS ORDERED: LIDOCAINE 1% MPF 5 ML VIAL ONE (10:27)
[2018-06-10] MEDS ORDERED: LIDOCAINE 2% MPF 5 ML VIAL ONE (10:45)
[2018-06-10] MEDS ORDERED: PROPOFOL 200 MG/20 ML VIAL IV ONE (10:45)
--- NOTE | 2018-06-10 11:38 | DS ---
Discharge Note: The patient will go to Day Surgery and home when stable. Disposition: Home. Condition: Stable. Discharge Instructions: Resume home medications and diet. Activity as tolerated. No heavy lifting. Remove outer dressing in 2 days. Shower. Keep wound clean and dry. Keep Steri-Strips on at all t imes. Follow up in my office p.r.n. Remove Steri-Strips after 2 weeks. Tylenol No. 3 one tablet p.o . q.4h. p.r.n. pain. EDGAR/MORENA Voice ID: [id number] Report ID: [id number]
[2018-06-10 11:49] VITALS: BP 116/50; TEMP 98.6; O2SAT 97
--- NOTE | 2018-06-10 11:53 | OP ---
Date of Procedure: 06/10/2018 Surgeon: Arnie Mena MD Preoperative Diagnosis: End-stage renal disease. Postoperative Diagnosis: End-stage renal disease. Procedure: Removal of right chest Tesio catheter. Estimated Blood Loss: Minimal. Specimen: Tesio catheter. Findings: Normal anatomy. Anesthesia: MAC. Complications: None. Disposition: The patient tolerated the procedure in stable condition and taken to Recovery in good g eneral condition. Procedure In Detail: The patient was brought to the OR and placed in supine position. MAC anesthesi a was begun. The patient was prepped and draped in the sterile fashion. Lidocaine 1% was infiltrate d locally. A 15-blade was used to make a slight incision around the insertion site. Subcutaneous ti ssue divided. Gentle pressure applied. Cuff removed. Tip of the catheter removed, sent to Patholog y for identification. Wound irrigated. Bleeding controlled with cautery. A 3-0 chromic used to nella roximate the subcutaneous tissue and close the skin. Sterile dressing was applied. The patient was awakened and taken to [facility] very in good general condition. /MODL Voice ID: [id number] Report ID: [id number]
== END 2018-06-10 12:10 | disposition home or self-care (01) ==
LOC: OR 09:36
PROVIDERS: ATTEND Surgery
PROC: 0JPT0XZ Removal of Tunneled Vascular Access Device from Trunk Subcutaneous Tissue and Fascia, Open Approach (ICD-10-PCS; principal; 2018-06-10 11:00)
DX: Z45.2 Encounter for adjustment and management of vascular access device (principal); I12.0 Hypertensive chronic kidney disease with stage 5 chronic kidney disease or end stage renal disease; N18.6 End stage renal disease; Z85.038 Personal history of other malignant neoplasm of large intestine; Z91.041 Radiographic dye allergy status; Z88.8 Allergy status to other drugs, medicaments and biological substances
CPT/HCPCS: 36415; 36589; 80048; 85025; 88300; J0690; J2704

== ENCOUNTER 2018-06-29 07:30 | Day surgery (SDC) | payer OTHER ==
--- OUTSIDE RECORDS SUMMARY | 2018-06-28 13:17 | XMS REPORT | Clinical Summary ---
:1930 Author Organization [facility] Address [address] [place] [address] Care Team Providers Name Role Phone Asked, [...] tablet 0 Active ACID/MULTIVIT,IRON by mouth daily. ,CLIENT ACCOUNT ASSISTANT (CENTRUM ORAL) furosemide (LASIX) Take 80 mg [...] Encounter General Surgery Kee Curran MD after 06/27/2017 Social History Tobacco Use Types Packs/Day Years [...] Taken Blood Pressure 168/72 08/12/2017 6:17 PM ACADEMIC SPECIALIST Pulse 64 08/12/2017 6:17 PM ACADEMIC SPECIALIST Temperature 37.1 C (98.7 F) 08/12/2017 6:17 PM ACADEMIC SPECIALIST Respiratory Rate 16 08/12/2017 6:17 PM ACADEMIC SPECIALIST Oxygen Saturation 96% 08/12/2017 6:17 PM ACADEMIC SPECIALIST Inhaled Oxygen Concentration - - Weight [...] Procedure Name Priority Date/Time Associated Diagnosis Comments KS AN ELECTIVE Routine 08/12/2017 3:10 PM SUPRAGLOTTIC AIRWAY ACADEMIC SPECIALIST Procedure Note - Wilmer Contreras MD - 08/12/2017 3:10 PM ACADEMIC SPECIALIST Airway Performed by: DARIA HUERTA Authorized by: DARIA HUERTA Location: OR Urgency: Elective Difficult Airway: No Anesthesiologist: DARIA HUERTA Performed by: anesthesiologist Preoxygenated with 100% O2: Yes C-spine Precautions Maintained Throughout: Yes Mask Ventilation: Easy mask Final Airway Type: Supraglottic airway Final LMA: Classic LMA Size: 4 Number of Attempts at Approach: 1 CREATION, AV FISTULA 08/12/2017 2:45 PM ACADEMIC SPECIALIST End stage renal disease Case Notes C-ARM Special Needs C-ARM HEMOGLOBIN, SYRINGE STAT 08/12/2017 11:45 AM ACADEMIC SPECIALIST GLUCOSE LEVEL, SYRINGE STAT 08/12/2017 11:45 AM ACADEMIC SPECIALIST POTASSIUM, SYRINGE STAT 08/12/2017 11:45 AM ACADEMIC SPECIALIST after 06/27/2017 Results Potassium, syringe (08/12/2017 11:45 AM ACADEMIC SPECIALIST) Potassium, syringe 4.7 3.5 - 5.0 mEq/L [facility] DEPARTMENT OF PATHOLOGY AND GENOMIC MEDICINE Specimen Blood Performing Organization Address [facility] Phone Number [facility] DEPARTMENT OF PATHOLOGY AND [address] [place], [place] [phone] GENOMIC MEDICINE Hemoglobin, syringe (08/12/2017 11:45 AM ACADEMIC SPECIALIST) Hemoglobin, syringe 9.3 (L) 14.0 - 18.0 g/dL [facility] DEPARTMENT OF PATHOLOGY AND GENOMIC MEDICINE Specimen Blood Performing Organization Address City/[facility]/Zipcode Phone Number [facility] DEPARTMENT OF PATHOLOGY AND [address] [place] [phone] GENOMIC MEDICINE Glucose level, syringe (08/12/2017 11:45 AM ACADEMIC SPECIALIST) Glucose, syringe 96 65 - 99 mg/dL [facility] DEPARTMENT OF PATHOLOGY AND GENOMIC MEDICINE Specimen Blood Performing Organization Address City/[facility] Phone Number [facility] DEPARTMENT OF PATHOLOGY AND [address] [place] [phone] [employer] MEDICINE after 06/27/2017 Insurance Payer Benefit Plan / Group Subscriber ID Type Phone Address MEDICARE MEDICARE PART A AND B xxxxxxxxxx Medicare [place], [place] AETNA AETNA PPO OPEN CHOICE xxxxxxxxx PPO Advance Directives Patient has advance care planning documents on file. For more information, please contact:Rik Lao[address] [place] [address]
[2018-06-28 13:40] LABS: Hematocrit 29.4 % (39.6-49.0)
--- OUTSIDE RECORDS SUMMARY | 2018-06-29 07:32 | XMS REPORT | Clinical Summary ---
:1930 Author Organization [facility] [employer] Address [address] [place] [address] Care Team Providers Name Role Phone Asked, [...] tablet 0 Active ACID/MULTIVIT,IRON by mouth daily. ,TRANSPORT COMPANY MANAGER (CENTRUM ORAL) furosemide (LASIX) Take 80 [...] Encounter General Surgery Kee Curran MD after 06/28/2017 Social History Tobacco Use Types Packs/Day Years [...] Taken Blood Pressure 168/72 08/12/2017 6:17 PM FILM SPLICER Pulse 64 08/12/2017 6:17 PM FILM SPLICER Temperature 37.1 C (98.7 F) 08/12/2017 6:17 PM FILM SPLICER Respiratory Rate 16 08/12/2017 6:17 PM FILM SPLICER Oxygen Saturation 96% 08/12/2017 6:17 PM FILM SPLICER Inhaled Oxygen Concentration - - Weight 81.5 [...] Procedure Name Priority Date/Time Associated Diagnosis Comments RI AN ELECTIVE Routine 08/12/2017 3:10 PM SUPRAGLOTTIC AIRWAY FILM SPLICER Procedure Note - Wlimer Contreras MD - 08/12/2017 3:10 PM FILM SPLICER Airway Performed by: DARIA HUERTA Authorized by: DARIA HUERTA Location: OR Urgency: Elective Difficult Airway: No Anesthesiologist: DARIA HUERTA Performed by: anesthesiologist Preoxygenated with 100% O2: Yes C-spine Precautions Maintained Throughout: Yes Mask Ventilation: Easy mask Final Airway Type: Supraglottic airway Final LMA: Classic LMA Size: 4 Number of Attempts at Approach: 1 CREATION, AV FISTULA 08/12/2017 2:45 PM FILM SPLICER End stage renal disease Case Notes C-ARM Special Needs C-ARM HEMOGLOBIN, SYRINGE STAT 08/12/2017 11:45 AM FILM SPLICER GLUCOSE LEVEL, SYRINGE STAT 08/12/2017 11:45 AM FILM SPLICER POTASSIUM, SYRINGE STAT 08/12/2017 11:45 AM FILM SPLICER after 06/28/2017 Results Potassium, syringe (08/12/2017 11:45 AM FILM SPLICER) Potassium, syringe 4.7 3.5 - 5.0 mEq/L [facility] DEPARTMENT OF PATHOLOGY AND GENOMIC MEDICINE Specimen Blood Performing Organization Address [facility] Phone Number [facility] DEPARTMENT OF PATHOLOGY AND [address] [place], [place] [phone] GENOMIC MEDICINE Hemoglobin, syringe (08/12/2017 11:45 AM FILM SPLICER) Hemoglobin, syringe 9.3 (L) 14.0 - 18.0 g/dL [facility] DEPARTMENT OF PATHOLOGY AND GENOMIC MEDICINE Specimen Blood Performing Organization Address City/[facility]/Zipcode Phone Number [facility] DEPARTMENT OF PATHOLOGY AND [address] [place] [phone] GENOMIC MEDICINE Glucose level, syringe (08/12/2017 11:45 AM FILM SPLICER) Glucose, syringe 96 65 - 99 mg/dL [facility] DEPARTMENT OF PATHOLOGY AND GENOMIC MEDICINE Specimen Blood Performing Organization Address City/[facility] Centercode Phone Number [facility] DEPARTMENT OF PATHOLOGY AND [address] [place] [phone] [employer] MEDICINE after 06/28/2017 Insurance Payer Benefit Plan / Group Subscriber ID Type Phone Address MEDICARE MEDICARE PART A AND B xxxxxxxxxx Medicare [place], [place] AETNA AETNA PPO OPEN CHOICE xxxxxxxxx PPO Advance Directives Patient has advance care planning documents on file. For more information, please contact:Rik Lao[address] [place] [address]
[2018-06-29] MEDS ORDERED: NA CHLORIDE 0.9% 250 ML ONE (08:55)
[2018-06-29 12:37] LABS: Hematocrit 30.9 % (39.6-49.0)
[2018-06-29 12:48] VITALS: BP 141/46; TEMP 98.5; O2SAT 97
== END 2018-06-29 12:40 | disposition home or self-care (01) ==
LOC: DS 07:30
PROVIDERS: ATTEND Internal Medicine Nephrology
DX: N18.6 End stage renal disease (principal); D63.1 Anemia in chronic kidney disease
CPT/HCPCS: 36415 ×2; 36430; 85014 ×2; 85018 ×2; 86850; 86900; 86901; P9016

== ENCOUNTER 2018-09-01 21:13 | Inpatient (IN) | payer OTHER ==
--- OUTSIDE RECORDS SUMMARY | 2018-09-01 21:16 | XMS REPORT | Clinical Summary ---
:1930 Author Organization [facility] Address [address] [place] [address] Care Team Providers Name Role Phone Asked, No Pcp Primary Care Provider Unavailable Allergies Active Allergy Reactions Severity Noted Date Comments Iodine Hives High 08/12/2017 Medications Medication Sig Dispensed Refills Start Date End Date Status benzonatate (TESSALON) Take 100 mg by 0 06/26/2017 Active 100 MG capsule mouth as needed for cough. carvedilol (COREG) 25 Take 25 mg by 0 06/18/2017 Active MG tablet mouth 2 (two) times a day with meals. ferrous sulfate 325 Take 325 mg by 0 Active (65 FE) MG tablet mouth daily with breakfast. amLODIPine (NORVASC) 5 Take 5 mg by mouth 0 Active mg tablet 2 (two) times a day. simvastatin (ZOCOR) 20 Take 20 mg by 0 Active MG tablet mouth nightly. aspirin (ECOTRIN) 81 Take 81 mg by 0 Active MG enteric coated mouth daily. tablet VIT Take 1 tablet by 0 Active C/E/ZN/COPPR/LUTEIN/ZE mouth 2 (two) AXAN (PRESERVISION times a day. AREDS 2 ORAL) FOLIC Take 1 tablet by 0 Active ACID/MULTIVIT,IRON,MIN mouth daily. ER (CENTRUM ORAL) furosemide (LASIX) 40 Take 80 mg by 0 Active mg tablet mouth daily. Pt normally takes PRN but has been taking daily for the last 2 weeks due to fluid build up SENNOSIDES/DOCUSATE Take 2 tablets by 0 Active SODIUM (SENOKOT-S mouth as needed. ORAL) Active Problems No known active problems Encounters Date Type Specialty Care Team Description 10/08/2017 Office Visit General Surgery Kee Curran, Surgery follow- up MD examination (Primary Dx) after 08/31/2017 Social History Tobacco Use Types Packs/Day Years [...] Vital Sign Reading Time Taken Blood Pressure - - Pulse - - Temperature - - Respiratory Rate - - Oxygen Saturation - - Inhaled Oxygen Concentration - - Weight 81.5 kg (179 lb 9.6 oz) 10/08/2017 2:56 PM CDT Height 177.8 cm (5' 10") 10/08/2017 2:56 PM CDT Body Mass Index 25.77 10/08/2017 2:56 PM CDT Plan of Treatment Health Maintenance Due Date Last Done Comments SHINGLES VACCINES (#1) 1980 65+ PNEUMOCOCCAL VACCINE (1 of 2 - PCV13) 1995 PNEUMOCOCCAL POLYSACCHARIDE VACCINE AGE 65 AND OVER 1995 INFLUENZA VACCINE 01/06/2018 Results Not on fileafter 08/31/2017 Insurance Payer Benefit Plan / Group Subscriber ID Type Phone Address MEDICARE MEDICARE PART A AND B xxxxxxxxxx Medicare [place], [place] AETNA AETNA PPO OPEN CHOICE xxxxxxxxx PPO Advance Directives Patient has advance care planning documents on file. For more information, please contact:[place] [address]
[2018-09-01 22:02] LABS: Absolute Lymphocytes (CBC) 0.8 K/uL (0.7-4.9); Absolute Monocytes 0.6 K/uL (0.1-1.3); Absolute Neutrophil 5.2 K/uL (1.8-8.0); Basophils % 0.7 % (0-1.3); Eosinophils % 1.4 % (0-4.4); Hematocrit 35.6 % (39.6-49.0); MPV 7.1 fL (7.6-11.3); Monocytes % 8.6 % (3.3-12.3); RBC Red Blood Cell Count 3.84 M/uL (4.33-5.43)
[2018-09-01 22:05] LABS: Protime INR 1.29
[2018-09-01 22:13] LABS: Potassium 3.5 mmol/L (3.5-5.1)
[2018-09-01] MEDS ORDERED: ACETAMINOPHEN 500 MG TAB PO PRN (22:27)
[2018-09-01] MEDS ORDERED: ONDANSETRON 4 MG/2 ML VIAL IV PRN (22:27)
--- NOTE | 2018-09-01 22:34 | ER ---
Nurse's Notes [facility] Name: Evans Thomas Age: 88 yrs Sex: Male : 1930 Arrival Date: 09/01/2018 Time: 21:16 Bed 25 Private MD: Diagnosis: Cerebral infarction Presentation: 09/01 21:20 Presenting complaint: EMS states: THE NOTICED PATIENT SLURRED SPEECH AT AROUND rv 1900. 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 NO LOC. NO CHEST PAIN. NO HEADACHE. Transition of care: patient was not received from another setting of care. Onset of symptoms was September 01, 2018 at 19:00. Risk Assessment: Do you want to hurt yourself or someone else? Patient reports no desire to harm self or others. Initial Sepsis Screen: Does the patient meet any 2 criteria? No. Patient's initial sepsis screen is negative. Does the patient have a suspected source of infection? No. Patient's initial sepsis screen is negative. Care prior to arrival: None. 21:20 Method Of Arrival: EMS: [facility] rv 21:20 Acuity: DWAIN 3 rv Triage Assessment: 21:28 General: Appears in no apparent distress. comfortable, Behavior is calm, cooperative. rv Pain: Complains of pain in heel of left foot. EENT: No signs and/or symptoms were reported regarding the EENT system. Neuro: Level of Consciousness is awake, alert, obeys commands, Oriented to person, place. Cardiovascular: Capillary refill < 3 seconds. Respiratory: Airway is patent. GI: No signs and/or symptoms were reported involving the gastrointestinal system. : No signs and/or symptoms were reported regarding the genitourinary system. Derm: Skin is intact. Musculoskeletal: No signs and/or symptoms reported regarding the musculoskeletal system. Historical: - Allergies: 21: Doxycycline; rv 21:27 Iodine; rv - Home Meds: 21:27 carvedilol 6.25 mg oral tab 1 tab 2 times per day [Active]; lisinopril 10 mg Oral tab 1 rv tab once daily [Active]; simvastatin 20 mg Oral tab 1 tab once daily [Active]; folic acid 1 mg Oral tab 1 tab once daily [Active]; hydralazine 25 mg Oral tab 1 tab three times daily. Hold if SBP <140 [Active]; omeprazole 40 mg Oral cpDR 1 cap once daily [Active]; ferrous sulfate 325 mg (65 mg iron) Oral TbEC 325 mg daily [Active]; magnesium oxide 250 mg Oral tab daily [Active]; Senokot S 1-3 TABS Oral as needed [Active]; aspirin 81 mg Oral TbEC 1 tab once daily [Active]; PreserVision AREDS 7,160-113-100 gryc-vs-[id number] Oral tab twice a day [Active]; Men's Multivitamin Gummies 200 mcg Oral chew daily [Active]; - PMHx: 21:27 ADD/ADHD; Anemia; Angina; CAD; CHF; colon cancer; ESRD; High Cholesterol; Hypertension; rv Myocardial infarction; - PSHx: 21:27 CARDIAC STENTS; rv - Immunization history:: Adult Immunizations up to date. - Social history:: Smoking status: Patient/guardian denies using tobacco. - Ebola Screening: : Patient negative for fever greater than or equal to 101.5 degrees Fahrenheit, and additional compatible Ebola Virus Disease symptoms Patient denies exposure to infectious person Patient denies travel to an Ebola-affected area in the 21 days before illness onset. Screenin:29 Abuse screen: Denies threats or abuse. Denies injuries from another. Nutritional rv screening: No deficits noted. Tuberculosis screening: No symptoms or risk factors identified. Fall Risk None identified. 21:35 VAN Screening: Arm Drift: Patient shows no arm weakness. Patient is VAN negative. ca1 Visual Disturbance: No visual disturbance noted. Aphasia: Expressive aphasia noted. Provider notified of +VAN scoring. Neglect: No neglect noted. 22:28 Patient has been NPO before screening. The patient is alert, able to follow commands. ca1 The patient does not exhibit slurred or garbled speech The patient is exhibiting difficulty speaking. The patient does not exhibit difficulty understanding words. The patient is able to swallow own secretions with no drooling or need for suction. Patient tolerated one teaspoon of water. No drooling, immediate coughing, gurgling, or clearing of the throat was noted. The patient tolerated 90mL of water. No drooling, immediate coughing, gurgling, or clearing of the throat was noted. The patient passed the bedside swallow screening. Oral medications may be given as ordered. Contact Physician for further diet orders. Provider notified of bedside swallow screening results: Denae Gottlieb RN. Assessment: 21:35 General: Appears in no apparent distress. comfortable, Behavior is calm, cooperative, ca1 appropriate for age. Pain: Denies pain. Neuro: Level of Consciousness is awake, alert, obeys commands, Oriented to none Sap Project Manager are equal bilaterally Moves all extremities. Speech with expressive aphasia noted, Facial symmetry appears normal, Pupils are PERRLA, Intact. Cardiovascular: Heart tones S1 S2 present Capillary refill < 3 seconds Patient's skin is warm and dry. Rhythm is regular. Respiratory: Airway is patent Respiratory effort is even, unlabored, Respiratory pattern is regular, symmetrical, Breath sounds are clear bilaterally. GI: Abdomen is flat, non-distended, Bowel sounds present X 4 quads. Abd is soft and non tender X 4 quads. : No deficits noted. No signs and/or symptoms were reported regarding the genitourinary system. EENT: No deficits noted. No signs and/or symptoms were reported regarding the EENT system. Derm: Skin is intact, is fragile, is thin, Skin is. Musculoskeletal: Circulation, motion, and sensation intact. Capillary refill < 3 seconds. 22:25 Reassessment: Patient appears in no apparent distress at this time. Patient and/or ca1 family updated on plan of care and expected duration. Pain level reassessed. Patient is alert, oriented x 3, equal unlabored respirations, skin warm/dry/pink. 23:21 Reassessment: Patient appears in no apparent distress at this time. Patient and/or ca1 family updated on plan of care and expected duration. Pain level reassessed. Patient is alert, oriented x 3, equal unlabored respirations, skin warm/dry/pink. Family at bedside. 23:21 Reassessment: Called 4th for report. Nurse will call back. ca1 23:30 Reassessment: Assisted pt to bedside commode. Pt tolerated well. Reassessment: Patient ca1 appears in no apparent distress at this time. Patient is alert, oriented x 3, equal unlabored respirations, skin warm/dry/pink. Vital Signs: 21:35 BP 141 / 76; Pulse 72; Resp 19; Temp 100.1; Pulse Ox 100% on 2 lpm NC; Weight 70.31 kg; ca1 Height 5 ft. 10 in. (177.80 cm); Pain 0/10; 22:49 BP 149 / 59; Pulse 65; Resp 19; Temp 99.4(O); Pulse Ox 99% on 2 lpm NC; ca1 23:21 BP 133 / 66; Pulse 67; Resp 19; Temp 98.8(O); Pulse Ox 95% on 2 lpm NC; ca1 21:35 Body Mass Index 22.24 (70.31 kg, 177.80 cm) ca1 Vitals: 21:35 Cardiac Rhythm Assessment Sinus rhythm. ca1 NIH Stroke Scale Scores: 22:00 NIHSS Score: 4 ca1 22:16 NIHSS Score: 3 ED Course: 21:16 Patient arrived in ED. rv 21:22 Triage completed. rv 21:29 Patient has correct armband on for positive identification. Placed in gown. Bed in low rv position. Call light in reach. Side rails up X2. Adult w/ patient. cafeteria monitor on. Pulse ox on. NIBP on. 21:30 Patient placed in an exam room, on a stretcher, on cafeteria monitor, on pulse oximetry, rv Patient notified of wait time. 21:36 Denae Gottlieb RN is Primary Nurse. ca1 21:38 Inserted saline lock: 20 gauge in right antecubital area, using aseptic technique. ca1 Blood collected. 21:42 Shaka Ortiz MD is Attending Physician. gs 22:03 CT Stroke Brain w/o Contrast In Process Unspecified. EDMS 22:16 X-ray completed. Portable x-ray completed in exam room. Patient tolerated procedure ml well. 22:18 Stroke CXR 1 View In Process Unspecified. EDMS 22:33 Markus Abdi MD is Hospitalizing Provider. gs 23:18 No provider procedures requiring assistance completed. Patient admitted, IV remains in ca1 place. Administered Medications: No medications were administered Point of Care Testing: Blood Glucose: 22:22 Blood Glucose: 99 mg/dL; lt1 Ranges: Outcome: 22:33 Decision to Hospitalize by Provider. gs 23:31 Admitted to Tele accompanied by tech, family with patient, via stretcher, room 429, ca1 Report called to Daria Lion RN 23:31 Condition: stable 23:31 Instructed on the need for admit. 23:57 Patient left the ED. ca1 NIH Stroke Scale - NIH Stroke Score Date: 09/01/2018 Time: 22:00 Total Score = 4 1a. Level of Consciousness (LOC) - 0(Alert) 1b. Level of Consciousness (LOC) (Year \T\ Age) - 2(Neither) 1c. LOC Commands (Open \T\ Closes Eyes/Energy Risk Management Analyst) - 0(Both) 2. Best Gaze (Lateral Gaze Paresis) - 0(Normal) 3. Visual Field Loss - 0(No visual loss) 4. Facial Palsy - 0(Normal) 5a. Left Arm: Motor (10-second hold) - 0(No drift) 5b. Right Arm: Motor (10-second hold) - 0(No drift) 6a. Left Leg: Motor (5-second hold - always test supine) - 0(No drift) 6b. Right Leg: Motor (5-second hold - always test supine) - 0(No drift) 7. Limb Ataxia (finger/nose \T\ heel/valencia - test with eyes open) - 0(Absent) 8. Sensory Loss (pinprick arms/legs/face) - 0(Normal) 9. Best Language: Aphasia (description/naming/reading) - 1(Mild to moderate aphasia) 10. Dysarthria (speech clarity - read or repeat words) - 1(Mild to Moderate) 11. Extinction and Inattention (visual/tactile/auditory/spatial/personal) - 0(No abnormality) Initials: ca1 NIH Stroke Scale - NIH Stroke Score Date: 09/01/2018 Time: 22:16 Total Score = 3 1a. Level of Consciousness (LOC) - 0(Alert) 1b. Level of Consciousness (LOC) (Year \T\ Age) - 1(One) 1c. LOC Commands (Open \T\ Closes Eyes/Energy Risk Management Analyst) - 0(Both) 2. Best Gaze (Lateral Gaze Paresis) - 0(Normal) 3. Visual Field Loss - 0(No visual loss) 4. Facial Palsy - 0(Normal) 5a. Left Arm: Motor (10-second hold) - 0(No drift) 5b. Right Arm: Motor (10-second hold) - 0(No drift) 6a. Left Leg: Motor (5-second hold - always test supine) - 0(No drift) 6b. Right Leg: Motor (5-second hold - always test supine) - 0(No drift) 7. Limb Ataxia (finger/nose \T\ heel/valencia - test with eyes open) - 0(Absent) 8. Sensory Loss (pinprick arms/legs/face) - 0(Normal) 9. Best Language: Aphasia (description/naming/reading) - 2(Severe aphasia) 10. Dysarthria (speech clarity - read or repeat words) - 0(Normal) 11. Extinction and Inattention (visual/tactile/auditory/spatial/personal) - 0(No abnormality) Initials: Signatures: Dispatcher [employer] Caitlin Hyman Gregory, MD MD Rosendo Faith RN RN Denae Gottlieb RN RN [facility] [place], Sabrina lt1 Corrections: (The following items were deleted from the chart) 23: 23:21 BP 133 / 66; Pulse 67bpm; Resp 19bpm; Pulse Ox 95% 2 lpm Nasal Cannula; [place] [id number] 09/02 00:43 09/01 23:31 Admitted to Tele accompanied by tech, family with patient, via [facility] stretcher, room 429, [facility]
--- NOTE | 2018-09-01 22:34 | EDPHYS ---
Physician Documentation [facility] Name: Evans Thomas Age: 88 yrs Sex: Male : 1930 Arrival Date: 09/01/2018 Time: 21:16 Bed 25 Private MD: ED Physician Shaka Ortiz HPI: 09/02 03:08 This 88 yrs old Male presents to ER via EMS with complaints of DIFFICULTY gs SPEAKING. 03:08 The patient presents to the emergency department with a speech or higher order brain gs function problem, aphasia, that is moderate. Onset: The symptoms/episode began/occurred yesterday, at 18:00. Context: occurred at home, occurred while the patient was sitting. Associated signs and symptoms: Pertinent negatives: loss of vision, weakness. Severity of symptoms: At their worst the symptoms were moderate in the emergency department the symptoms are unchanged. Current symptoms: APHASIA. The patient has not experienced similar symptoms in the past. Historical: - Allergies: 09/01 21:27 Doxycycline; rv 21:27 Iodine; rv - Home Meds: 21:27 carvedilol 6.25 mg oral tab 1 tab 2 times per day [Active]; lisinopril 10 mg Oral tab 1 rv tab once daily [Active]; simvastatin 20 mg Oral tab 1 tab once daily [Active]; folic acid 1 mg Oral tab 1 tab once daily [Active]; hydralazine 25 mg Oral tab 1 tab three times daily. Hold if SBP <140 [Active]; omeprazole 40 mg Oral cpDR 1 cap once daily [Active]; ferrous sulfate 325 mg (65 mg iron) Oral TbEC 325 mg daily [Active]; magnesium oxide 250 mg Oral tab daily [Active]; Senokot S 1-3 TABS Oral as needed [Active]; aspirin 81 mg Oral TbEC 1 tab once daily [Active]; PreserVision AREDS 7,160-113-100 epye-ir-twsu Oral tab twice a day [Active]; Men's Multivitamin Gummies 200 mcg Oral chew daily [Active]; - PMHx: 21:27 ADD/ADHD; Anemia; Angina; CAD; CHF; colon cancer; ESRD; High Cholesterol; Hypertension; rv Myocardial infarction; - PSHx: 21:27 CARDIAC STENTS; rv - Immunization history:: Adult Immunizations up to date. - Social history:: Smoking status: Patient/guardian denies using tobacco. - Ebola Screening: : Patient negative for fever greater than or equal to 101.5 degrees Fahrenheit, and additional compatible Ebola Virus Disease symptoms Patient denies exposure to infectious person Patient denies travel to an Ebola-affected area in the 21 days before illness onset. ROS: 09/02 03:08 All other systems are negative. gs Exam: 03:08 Head/Face: Normocephalic, atraumatic. Eyes: Pupils equal round and reactive to light, gs extra-ocular motions intact. Lids and lashes normal. Conjunctiva and sclera are non-icteric and not injected. Cornea within normal limits. Periorbital areas with no swelling, redness, or edema. ENT: Nares patent. No nasal discharge, no septal abnormalities noted. Tympanic membranes are normal and external auditory canals are clear. Oropharynx with no redness, swelling, or masses, exudates, or evidence of obstruction, uvula midline. Mucous membranes moist. Neck: Trachea midline, no thyromegaly or masses palpated, and no cervical lymphadenopathy. Supple, full range of motion without nuchal rigidity, or vertebral point tenderness. No Meningismus. Chest/axilla: Normal chest wall appearance and motion. Nontender with no deformity. No lesions are appreciated. Respiratory: Lungs have equal breath sounds bilaterally, clear to auscultation and percussion. No rales, rhonchi or wheezes noted. No increased work of breathing, no retractions or nasal flaring. Abdomen/GI: Soft, non-tender, with normal bowel sounds. No distension or tympany. No guarding or rebound. No evidence of tenderness throughout. Back: No spinal tenderness. No costovertebral tenderness. Full range of motion. Skin: Warm, dry with normal turgor. Normal color with no rashes, no lesions, and no evidence of cellulitis. 03:08 MS/ Extremity: Pulses equal, no cyanosis. Neurovascular intact. Full, normal range of motion. 03:08 Constitutional: The patient appears alert, awake. 03:08 Cardiovascular: Rate: normal, Rhythm: irregularly irregular, Pulses: no pulse deficits are appreciated. 03:08 ECG was reviewed by the Attending Physician. 03:08 ECG was reviewed by the Attending Physician. 03:08 Neuro: Cranial nerves: CN II- XII are normal as tested, Cerebellar function: normal finger to nose testing, Motor: moves all fours, Sensation: no obvious gross deficits. Vital Signs: 09/01 21:35 BP 141 / 76; Pulse 72; Resp 19; Temp 100.1; Pulse Ox 100% on 2 lpm NC; Weight 70.31 kg; ca1 Height 5 ft. 10 in. (177.80 cm); Pain 0/10; 22:49 BP 149 / 59; Pulse 65; Resp 19; Temp 99.4(O); Pulse Ox 99% on 2 lpm NC; ca1 23:21 BP 133 / 66; Pulse 67; Resp 19; Temp 98.8(O); Pulse Ox 95% on 2 lpm NC; ca1 21:35 Body Mass Index 22.24 (70.31 kg, 177.80 cm) ca1 NIH Stroke Scale Scores: 22:00 NIHSS Score: 4 ca1 22:16 NIHSS Score: 3 gs MDM: 22:11 Patient medically screened. 09/02 03:08 Data reviewed: vital signs, nurses notes, lab test result(s), EKG, radiologic studies, gs CT scan. Data interpreted: monitoring analyst: Pulse oximetry:. Counseling: I had a detailed discussion with the patient and/or guardian regarding: the historical points, exam findings, and any diagnostic results supporting the discharge/admit diagnosis, lab results, radiology results, the need for further work-up and treatment in the hospital. Response to treatment: the patient's symptoms have mildly improved after treatment, and as a result, I will discharge patient. ED course: NO TPA OUT OF WINDOW.. 03:08 Physician consultation: Deandre Solis MD regarding patient's condition, need to gs evaluate the patient as soon as possible, and will see patient in inpatient room. 09/01 21:43 Order name: Basic Metabolic Panel; Complete Time: 22:14 09/01 21:43 Order name: CBC with Diff; Complete Time: 22:22 09/01 21:43 Order name: Protime (+inr); Complete Time: 22:22 09/01 21:43 Order name: Ptt, Activated; Complete Time: 22:22 09/01 22:25 Order name: Glucose, Ancillary Testing; Complete Time: : EDMS 09/01 22:32 Order name: CBC with Automated Diff EDMS 09/01 22:32 Order name: CBC with Automated Diff EDNE 09/01 22:32 Order name: Comprehensive Metabolic Panel [facility]NE 09/01 22:32 Order name: Comprehensive Metabolic Panel [facility] 09/01 22:32 Order name: Lipid Profile [facility] 09/01 22:32 Order name: Lipid Profile [facility] 09/01 22:32 Order name: Magnesium [facility] 09/01 22:32 Order name: Magnesium [facility] 09/01 22:32 Order name: Phosphorus [facility] 09/01 21:43 Order name: CT Stroke Brain w/o Contrast 09/01 21:43 Order name: Stroke CXR 1 View 09/01 21:43 Order name: EKG; Complete Time: 21:43 09/01 22:31 Order name: NPO [facility] 09/01 22:31 Order name: NPO [facility] 09/01 22:32 Order name: Physical Therapy Consult [facility] 09/01 22:32 Order name: Speech Therapy Consult [facility] 09/01 22:32 Order name: NPO [facility] 09/01 22:32 Order name: Echo with Doppler [facility] 09/01 22:32 Order name: EKG Electrocardiogram [facility] 09/01 22:32 Order name: Phosphorus [facility] 09/01 22:32 Order name: Troponin I [facility] 09/01 22:32 Order name: Troponin I [facility] 09/01 22:32 Order name: Stroke Protocol [facility] 09/01 22:33 Order name: Chest Pa And Lat (2 Views) [facility] 09/01 22:33 Order name: Carotid Artery Bilateral [facility] 09/01 21:43 Order name: Accucheck; Complete Time: : 09/01 21:43 Order name: Cardiac monitoring; Complete Time: : 09/01 21:43 Order name: EKG - Nurse/Tech; Complete Time: 22: 09/01 21:43 Order name: IV Saline Lock; Complete Time: : 09/01 21:43 Order name: Labs collected and sent; Complete Time: : 09/01 21:43 Order name: NPO; Complete Time: 22: 09/01 21:43 Order name: O2 Per Protocol; Complete Time: 22: 09/01 21:43 Order name: O2 Sat Monitoring; Complete Time: : 09/01 21:43 Order name: Stroke Swallow Screen; Complete Time: :27 EC:08 Rate is 69 beats/min. Rhythm is irregular. QRS interval is normal. QT interval is gs normal. T waves are Inverted. T waves are Flattened. Clinical impression: Abnormal EKG without significant change and Atrial Fibrillation. Interpreted by me. Administered Medications: No medications were administered Point of Care Testing: Blood Glucose: 09/01 22:22 Blood Glucose: 99 mg/dL; lt1 Ranges: Critical Glucose Levels:Adult <50 mg/dl or >400 mg/dl <40 mg/dl or >180 mg/dl Disposition: 09/01/18 22:33 Hospitalization ordered by Markus Abdi for Inpatient Admission. Preliminary diagnosis is Cerebral infarction. - Bed requested for Telemetry/MedSurg (Inpatient). - Status is Inpatient Admission. ca1 - Condition is Stable. - Problem is new. - Symptoms have improved. UTI on Admission? No Critical care time excluding procedures: 09/02 03:08 Critical care time: Bedside Care: 10 minutes, Consultation: 10 minutes, Family gs Intervention: 10 minutes. Total time: 30 minutes NIH Stroke Scale - NIH Stroke Score Date: 09/01/2018 Time: 22:00 Total Score = 4 1a. Level of Consciousness (LOC) - 0(Alert) 1b. Level of Consciousness (LOC) (Year \T\ Age) - 2(Neither) 1c. LOC Commands (Open \T\ Closes Eyes/Putaway Driver) - 0(Both) 2. Best Gaze (Lateral Gaze Paresis) - 0(Normal) 3. Visual Field Loss - 0(No visual loss) 4. Facial Palsy - 0(Normal) 5a. Left Arm: Motor (10-second hold) - 0(No drift) 5b. Right Arm: Motor (10-second hold) - 0(No drift) 6a. Left Leg: Motor (5-second hold - always test supine) - 0(No drift) 6b. Right Leg: Motor (5-second hold - always test supine) - 0(No drift) 7. Limb Ataxia (finger/nose \T\ heel/valencia - test with eyes open) - 0(Absent) 8. Sensory Loss (pinprick arms/legs/face) - 0(Normal) 9. Best Language: Aphasia (description/naming/reading) - 1(Mild to moderate aphasia) 10. Dysarthria (speech clarity - read or repeat words) - 1(Mild to Moderate) 11. Extinction and Inattention (visual/tactile/auditory/spatial/personal) - 0(No abnormality) Initials: ca1 NIH Stroke Scale - NIH Stroke Score Date: 09/01/2018 Time: 22:16 Total Score = 3 1a. Level of Consciousness (LOC) - 0(Alert) 1b. Level of Consciousness (LOC) (Year \T\ Age) - 1(One) 1c. LOC Commands (Open \T\ Closes Eyes/Putaway Driver) - 0(Both) 2. Best Gaze (Lateral Gaze Paresis) - 0(Normal) 3. Visual Field Loss - 0(No visual loss) 4. Facial Palsy - 0(Normal) 5a. Left Arm: Motor (10-second hold) - 0(No drift) 5b. Right Arm: Motor (10-second hold) - 0(No drift) 6a. Left Leg: Motor (5-second hold - always test supine) - 0(No drift) 6b. Right Leg: Motor (5-second hold - always test supine) - 0(No drift) 7. Limb Ataxia (finger/nose \T\ heel/valencia - test with eyes open) - 0(Absent) 8. Sensory Loss (pinprick arms/legs/face) - 0(Normal) 9. Best Language: Aphasia (description/naming/reading) - 2(Severe aphasia) 10. Dysarthria (speech clarity - read or repeat words) - 0(Normal) 11. Extinction and Inattention (visual/tactile/auditory/spatial/personal) - 0(No abnormality) Initials: Signatures: Dispatcher [employer] EDMS Lucy Paige RN RN mw Starr, Gregory, MD MD Rosendo Faith RN RN AcobDenae RN RN ca1 Corrections: (The following items were deleted from the chart) 09/01 23:05 22:33 Hospitalization Ordered by Markus Abdi MD for Inpatient Admission. caren Preliminary diagnosis is Cerebral infarction. Bed requested for Telemetry/MedSurg (Inpatient). Status is Inpatient Admission. Condition is Stable. Problem is new. Symptoms have improved. UTI on Admission? No. 23:57 23:05 09/01/2018 22:33 Hospitalization Ordered by Markus Abdi MD for ca1 Inpatient Admission. Preliminary diagnosis is Cerebral infarction. Bed requested for Telemetry/MedSurg (Inpatient). Status is Inpatient Admission. Condition is Stable. Problem is new. Symptoms have improved. UTI on Admission? No. mw
[2018-09-02] MEDS: NA CHLORIDE 0.9% 1,000 ML IV SCH ×2 (00:40→12:20)
[2018-09-02 01:59] VITALS: BMI 24.5
[2018-09-02] MEDS ORDERED: ASPIRIN 325 MG TAB PO ONE (02:06)
[2018-09-02] MEDS ORDERED: DOCUSATE NA/SENNA CONC 1 TAB PO PRN (03:24)
[2018-09-02 04:24] LABS: Absolute Lymphocytes (CBC) 1.1 K/uL (0.7-4.9); Absolute Monocytes 0.7 K/uL (0.1-1.3); Absolute Neutrophil 4.5 K/uL (1.8-8.0); Basophils % 0.7 % (0-1.3); Eosinophils % 1.8 % (0-4.4); Hematocrit 33.4 % (39.6-49.0); Lymphocytes % 16.9 % (15.3-44.8); MPV 7.4 fL (7.6-11.3); Monocytes % 10.7 % (3.3-12.3); RBC Red Blood Cell Count 3.64 M/uL (4.33-5.43)
[2018-09-02 04:33] LABS: Albumin 2.4 g/dL (3.4-5.0); Bilirubin Total 0.6 mg/dL (0.2-1.0); Magnesium 1.8 mg/dL (1.8-2.4); Potassium 3.3 mmol/L (3.5-5.1); Protein, Total 6.6 g/dL (6.4-8.2); Troponin I 0.04 ng/mL (0.0-0.045)
[2018-09-02] MEDS ORDERED: MAGNESIUM SULFATE 1 gm IVPB 1 GM/100 ML BAG IV ONE (04:40)
[2018-09-02] MEDS ORDERED: ENOXAPARIN 60 MG/0.6 ML SQ ONE ×2 (05:00→06:00)
--- NOTE | 2018-09-02 06:00 | EKG ---
Test Date: 2018-09-01 Test Time: 21:36:34 Bar Attendant: LILA MEASUREMENT RESULTS: Intervals: Rate: 69 DC: QRSD: 96 QT: 442 QTc: 473 [place]: P: DC: QRS: 49 T: 146 INTERPRETIVE STATEMENTS: Atrial fibrillation with a competing junctional pacemaker Anteroseptal infarct, age undetermined T wave abnormality, consider lateral ischemia Abnormal ECG Compared to ECG 04/30/2018 13:07:39 no significant change from previous ECG Electronically Signed On 09-02-18 05:59:57 CDT by Roque Santiago
[2018-09-02] MEDS: PANTOPRAZOLE 40MG TABLET PO SCH (06:30)
[2018-09-02] MEDS: ENOXAPARIN 60 MG/0.6 ML SQ SCH (06:31)
--- NOTE | 2018-09-02 08:08 | RAD REPORT ---
EXAM DESCRIPTION: [place] Single View3 10:29 pm CLINICAL HISTORY: Shortness of breath COMPARISON: May 2018 FINDINGS: Small to moderate pleural effusions suspected. Mild bilateral pulmonary opacities. The heart is moderately enlarged IMPRESSION: These findings probably indicate CHF
[2018-09-02] MEDS ORDERED: ENOXAPARIN 30 MG/0.3 ML SQ SCH (09:00)
[2018-09-02] MEDS: CLOPIDOGREL 75 MG TABLET PO SCH (09:00)
[2018-09-02] MEDS: ASPIRIN EC 81 MG TAB PO SCH (09:00)
[2018-09-02] MEDS: CARVEDILOL 12.5 MG TAB PO SCH ×2 (09:00→20:53)
--- NOTE | 2018-09-02 09:04 | CON ---
History Of Present Illness: Mr. Thomas was in his usual state of health until late afternoon when he started slurring speech and not being very aware. He has been brought to the emergency room and [facility] then a brain CAT scan has been done. The radiologist has not typed interpretation yet. To my own reading, it does not show anything remarkable. Mr. Thomas has an extensive past medical history. He has had colon cancer, multiple intracoronary stents, chronic atrial fib, GI blood loss, unable to katia erate anticoagulation, and end-stage renal disease, on hemodialysis. His CAT scan does not look like there is a mass or hemorrhage. Medications: Outpatient medications have been aspirin, Senokot, hydralazine, folic acid, simvastatin , lisinopril, carvedilol, multivitamin, omeprazole, vitamin A, magnesium oxide, iron sulfate. Physical Examination: General: He is searching for words, stumbling. He seems to have no awareness of his difficulties wi th speech. He does not think there is anything wrong. Vital Signs: His blood pressure is 133/66, heart rate 67, atrial fibrillation. Lungs: Clear. Heart: Otherwise, within normal limits. Abdomen: Soft. Extremities: Mild edema. There is discoloration of the skin at the feet and ankles. Distal pulses diminished. Laboratory Data: Reveals creatinine 3.97. Troponin is 0.04. Impression: I believe a neurological consult is underway. I would be very reluctant to initiate ant icoagulant therapy in Mr. Thomas because of his history of GI bleeding. I think we are fairly much st uck here. If we do try it, we could try it with a low dose of Lovenox in the hospital first as that would wear off quicker than any oral anticoagulant in case he does start bleed ing again. JOYCE/MODL Voice ID: [id number] Report ID: [id number]
--- NOTE | 2018-09-02 10:10 | RAD REPORT ---
EXAM DESCRIPTION: MRI - Brain Wo Cont - 09/02/2018 9:08 am CLINICAL HISTORY: Slurred speech COMPARISON: September 01, 2017 TECHNIQUE: Axial, sagittal, and coronal magnetic images of the brain were obtained. Contrast was not requested FINDINGS: Serpiginous signal is present within the left parietal lobe measuring approximately 4 x 1 centimeters consistent with an acute infarction. Mild to moderate signal within periventricular white matter likely secondary to ischemic changes seco ndary to small vessel disease. The ventricles are normal caliber. An extra-axial fluid collection is not present Mild signal seen within left mastoids. Fluid within the sinuses is not noted IMPRESSION: 4 x 1 centimeter acute left parietal lobe infarction. The exam was discussed with Dr. Rabia snow
--- NOTE | 2018-09-02 10:13 | RAD REPORT ---
EXAM DESCRIPTION: MRI - MRA Head Wo Cont - 09/02/2018 9:08 am CLINICAL HISTORY: Slurred speech COMPARISON: None. TECHNIQUE: Magnetic resonance angiogram was performed. 3D MIPS reconstruction performed FINDINGS: The anterior cerebral, middle cerebral, right posterior cerebral, distal internal carotid and basilar arteries do not demonstrate a significant stenosis. Diminished signal is seen within a posterior branch of the left middle cerebral artery An aneurysm is not displayed. IMPRESSION: Diminished signal within a posterior branch of the left middle cerebral artery. Patient has a known left parietal lobe infarct
--- NOTE | 2018-09-02 10:19 | RAD REPORT ---
EXAM DESCRIPTION: USCarotid Artery Bilateral09/02/2018 9:46 am CLINICAL HISTORY: Slurred speech COMPARISON: 2017 FINDINGS: The velocity of the right internal carotid artery equals 81 cm/sec. The right ICA/CCA rati o 1.5 The velocity of the left internal carotid artery equals 53 cm/sec. The left ICA/CCA ratio 0.8 Mild plaque is present within the carotid arteries. The vertebral arteries demonstrate antegrade flow IMPRESSION: Mild plaque within the carotid arteries without evidence of a hemodynamically significan t stenosis NASCET criteria used. Mild 0-49% stenosis Moderate 50-69% stenosis Severe 70-99% stenosis
--- NOTE | 2018-09-02 10:28 | P.HP ---
Certification for Inpatient Patient admitted to: Inpatient With expected LOS: >2 Midnights Patient will require the following post-hospital care: None Practitioner: I am a practitioner with admitting privileges, knowledge of patient current condition, hospital course, and medical plan of care. Services: Services provided to patient in accordance with Admission requirements found in Title 42 Section 412.3 of the Code of Federal Regulations Patient History Date of Service: 09/01/18 Reason for admission: CVA History of Present Illness: Patient is a 88-year-old gentleman who came into the hospital with Wernicke's aphasia. Mr. Thomas have slurred speech. He was not able to operate his wheelchair. The brought him into the hospital. In the emergency room, he was found have a CVA. He will be admitted to the hospital for stroke workup. Allergies doxycycline Allergy (Verified 06/29/18 09:20) Itching/Hives/Rash iodine [Iodine] Allergy (Verified 06/29/18 09:20) constipation Home Medications: Aspirin [Adult Aspirin] 1 tab PO DAILY 04/30/18 Carvedilol [Coreg] 6.25 mg PO BID 04/30/18 Docusate/Senna [Senokot-S*] 1 tab PO BEDTIME PRN 04/30/18 Folic Acid 1 tab PO DAILY 04/30/18 Hydralazine [Apresoline*] 1 tab PO TID PRN 04/30/18 Lisinopril 1 tab PO DAILY 04/30/18 Simvastatin 1 tab PO BEDTIME 04/30/18 Multivitamin [Multivitamins] 1 each PO DAILY 06/10/18 Omeprazole [Prilosec] 40 mg PO DAILY 06/10/18 Ferrous Sulfate [Ferrous Sulfate*] 1 tab PO DAILY 09/02/18 Magnesium Oxide [Magnesium] 1 tab PO DAILY 09/02/18 Vit A/Vit C/Vit E/Zinc/Copper [Preservision Areds Softgel] 1 tab PO BID - Past Medical/Surgical History Has patient received pneumonia vaccine in the past: Yes Diabetic: No -: Angina -: CAD -: HTN -: Hylerlipidemia -: Colon Ca -: CKD Stage 3 -: skin Ca- squamous cell-left ear, face & right hand -: dyspnea -: ESRD (MWF) -: ADD/ADHD -: anemia -: CHF -: part of colon removed(2007) -: removal of skin Ca from left ear, face & right hand(different times) -: right shoulder surgery -: left fistula -: right pascual - Family History Father Medical History: Heart disease Sister Medical History: Diabetes, Cancer Notes: colon cancer - Social History Smoking Status: Never smoker Alcohol use: No CD- Drugs: No Caffeine use: No Place of Residence: Home Review of Systems 10-point ROS is otherwise unremarkable Physical Examination - Vital Signs Temperature: 98.8 F Blood Pressure: 133/66 Pulse: 67 Respirations: 19 - Physical Exam General: Alert, In no apparent distress, Oriented x3 HEENT: Atraumatic, PERRLA, Mucous membr. moist/pink, EOMI, Sclerae nonicteric Neck: Supple, 2+ carotid pulse no bruit, No LAD, Without JVD or thyroid abnormality Respiratory: Clear to auscultation bilaterally, Normal air movement Cardiovascular: Regular rate/rhythm, Normal S1 S2, No murmurs Gastrointestinal: Normal bowel sounds, Soft and benign, Non-distended, No tenderness Musculoskeletal: No clubbing, No swelling, No tenderness Integumentary: No rashes Neurological: Normal gait, Normal speech, Normal strength at 5/5 x4 extr, Normal tone, Sensation intact, Cranial nerves 3-12 intact, Normal affect Lymphatics: No axilla or inguinal lymphadenopathy - Studies Laboratory Data (last 24 hrs) 09/01/18 21:35: PT 15.1 H, INR 1.29, APTT 33.1 09/01/18 21:35: WBC 6.7, Hgb 11.3 L, Hct 35.6 L, Plt Count 248 09/01/18 21:35: Sodium 140, Potassium 3.5, BUN 29 H, Creatinine 3.64 H, Glucose 110 H Assessment & Plan - Problems (Diagnosis) (1) Stroke Current Visit: Yes Status: Acute (2) CAD (coronary artery disease) Onset Date: 06/11/17 Current Visit: No Status: Chronic Qualifiers: Coronary Disease-Associated Artery/Lesion type: [place] artery [place] vs. transplanted heart: [place] heart Associated angina: with stable angina Qualified Code(s): I25.118 - Atherosclerotic heart disease of [place] coronary artery with other forms of angina pectoris (3) CHF (congestive heart failure) Onset Date: 10/26/17 Current Visit: No Status: Chronic Qualifiers: Heart failure type: systolic Heart failure chronicity: chronic Qualified Code(s): I50.22 - Chronic systolic (congestive) heart failure (4) Chronic renal failure, stage 3 (moderate) Onset Date: 06/11/17 Current Visit: No Status: Chronic (5) ESRD on dialysis Onset Date: 10/12/17 Current Visit: No Status: Chronic (6) HTN (hypertension) Onset Date: 06/11/17 Current Visit: No Status: Chronic Qualifiers: Hypertension type: essential hypertension Qualified Code(s): I10 - Essential (primary) hypertension (7) Hyperlipidemia Onset Date: 06/11/17 Current Visit: No Status: Chronic Qualifiers: Hyperlipidemia type: mixed hyperlipidemia Qualified Code(s): E78.2 - Mixed hyperlipidemia - Plan Plan: 1. Anti-platelet therapy and statin therapy 2. Lipid profile 3. DVT prophylaxis 4. PT and speech therapy 5. Cardiac medications 6. Strict blood pressure and blood sugar control 7. MRI of the brain 8. Echo and carotid Doppler 9. GI and DVT prophylaxis Discharge Plan: Home Plan to discharge in: Greater than 2 days - Advance Directives Does patient have a Living Will: Yes Does patient have a Durable POA for Healthcare: Yes - Code Status/Comfort Care Code Status Assessed: Yes Code Status: Full Code Critical Care: No Time Spent Managing PTS Care (In Minutes): 45
--- NOTE | 2018-09-02 12:08 | ECHO ---
HEIGHT: 5 ft 7 in WEIGHT: 157 lb 0 oz DATE OF STUDY: 09/02/[address]: Markus Abdi MD 2-DIMENSIONAL: YES M.MODE: YES DOPPLER: YES COLOR FLOW: YES TDS: PORTABLE: DEFINITY: BUBBLE STUDY: DIAGNOSIS: STROKE CARDIAC HISTORY: CATHERIZATION: YES SURGERY: NO PROSTHETIC VALVE: NO PACEMAKER: NO MEASUREMENTS (cm) DIASTOLIC (NORMALS) SYSTOLIC (NORMALS) IVSd 1.2 (0.6-1.2) LA Diam 4.5 (1.9-4.0) LVEF 46% LVIDd 5.2 (3.5-5.7) LVIDs 4.0 (2.0-3.5) %FS 23% LVPWd 1.3 (0.6-1.2) Ao Diam 3.0 (2.0-3.7) 2 DIMENSIONAL ASSESSMENT: RIGHT ATRIUM: NORMAL LEFT ATRIUM: DILATED RIGHT VENTRICLE: NORMAL LEFT VENTRICLE: NORMAL TRICUSPID VALVE: NORMAL MITRAL VALVE: NORMAL PULMONIC VALVE: NORMAL AORTIC VALVE: NORMAL PERICARDIAL EFFUSION: NONE AORTIC ROOT: NORMAL LEFT VENTRICULAR WALL MOTION: GLOBAL HYPOKINESIS DOPPLER/COLOR FLOW: MILD AORTIC, MITRAL AND TRICUSPID REGURGITATION. MODERATE PULMONARY HYPERTENSION. ESTIMATED RIGHT VENTRICULAR SYSTOLIC PRESSURE 55 mmHg. COMMENTS: DEPRESSED LEFT VENTRICULAR EJECTION FRACTION. DILATED LEFT ATRIUM. SMALL PERICARDIAL EFFUSION. MILD AORTIC, MITRAL AND TRICUSPID REGURGITATION. MODERATE PULMONARY HYPERTENSION. TECHNOLOGIST: RAY BRASWELL
[2018-09-02 12:43] VITALS: O2SAT 100
--- NOTE | 2018-09-02 12:54 | RAD REPORT ---
EXAM DESCRIPTION: CT - Ct Stroke Brain Wo Cont - 09/01/2018 10:02 pm CLINICAL HISTORY: DECLINING STATE COMPARISON: None Available. TECHNIQUE: Multiple helical axial tomographic images were obtained of the head without intravenous c ontrast. Coronal and sagittal reformatted images were obtained. This exam was performed according to our departmental dose-optimization program, which includes automated exposure control, adjustment of the mA and/or kV according to patient size and/or use of iterative reconstruction technique. FINDINGS: Mild generalized brain volume loss is present. There is mild low-attenuation in the perive ntricular and subcortical white matter suggestive of chronic microvascular ischemic changes. There is no acute intracranial hemorrhage. No mass. No midline shift. No ventriculomegaly. Sanders-white matter differentiation is maintained. Paranasal sinuses are clear. Mastoid air cells and middle ear spaces are clear. Changes of lens repla cement noted. Osseous structures are unremarkable. Surrounding soft tissues are unremarkable. IMPRESSION: No acute intracranial process. THIS REPORT CONTAINS FINDINGS THAT MAY BE CRITICAL TO PATIENT CARE: The findings were verbally discu ssed via telephone conference with Dr. Ortiz by Dr. Bell at 2212 hours central time on September 01, 2018. The results were acknowledged and understood. Electronically signed by: Mirza Bell MD 09/01/2018 10:12 PM CDT Due to temporary technical issues with the PACS/Fluency reporting system, reports are being signed by the in house radiologist as a courtesy to ensure prompt reporting. The interpreting radiologist is f ully responsible for the content of the report.
--- NOTE | 2018-09-02 18:31 | P.PN ---
Subjective Date of Service: 09/02/18 Chief Complaint: CVA Subjective: No new changes Review of Systems 10-point ROS is otherwise unremarkable Physical Examination - Vital Signs Temperature: 96.6 F Blood Pressure: 145/60 Pulse: 63 Respirations: 22 Pulse Ox (%): 100 - Physical Exam General: Alert, In no apparent distress, Other (with aphasia) HEENT: Mucous membr. moist/pink Neck: Supple, 2+ carotid pulse no bruit Respiratory: Clear to auscultation bilaterally Gastrointestinal: Normal bowel sounds Neurological: Abnormal speech - Studies Laboratory Data (last 24 hrs) 09/01/18 21:35: PT 15.1 H, INR 1.29, APTT 33.1 09/01/18 21:35: WBC 6.7, Hgb 11.3 L, Hct 35.6 L, Plt Count 248 09/01/18 21:35: Sodium 140, Potassium 3.5, BUN 29 H, Creatinine 3.64 H, Glucose 110 H Assessment And Plan - Plan 1. Anti-platelet therapy and statin therapy 2. PT, OT and speech therapy 3. Cardiac medications 4. Strict blood pressure and blood sugar control 5. GI and DVT prophylaxis
[2018-09-02] MEDS ORDERED: ATORVASTATIN 10 MG TAB PO SCH (21:00)
[2018-09-02] MEDS ORDERED: ATORVASTATIN 20 MG TAB PO SCH (21:00)
--- NOTE | 2018-09-03 00:25 | CON ---
Reason For Consultation: Consultation called because of stroke. History Of Present Illness: Mr. Thomas is an 88-year-old patient, who was doing well yesterday aftern oon when he had sudden onset confusion, slurred speech, and he was reportedly "speaking gibberish" an d he was brought into the [facility] and his workup for stroke initially revealed head CT sc an without an obvious acute ischemic or hemorrhagic change. The initial NIH stroke scale was 4 and a repeat 16 was later, 3. The patient was admitted for stroke workup. His brain MRI done earlier tolakeshia melton identified a 4 x 1 cm acute ischemic stroke in the left parietal lobe off the posterior branch of the left middle cerebral artery. His electrocardiogram showed atrial fibrillation with a paced ventr icular response. It should be noted that the patient has had a history of GI bleeding and is not on anticoagulation. He is just taking an aspirin daily. Additional workup included a brain MRA of the head, which showed a serpentigenous branch of the left posterior middle cerebral artery consistent with the location of the patient's ischemic stroke. His echocardiogram of the heart showed ejection fraction of 46% with moderate pulmonary hypertension. Ca rotid artery ultrasound showed no evidence of hemodynamically significant stenosis. In the emergency room, the patient's regimen of antiplatelet medication was adjusted to aspirin along with Plavix. Radha cochran was put on Lovenox for DVT prophylaxis level. Lipitor was continued 40 mg at bedtime. Past Medical History: Includes atrial fibrillation, hypertension, prior GI bleed, dyslipidemia, myoc ardial infarction. Family History: Noncontributory. Social History: The patient resides with the family in with his . He does have a son, Dr. Thomas , who is a physician in the area. No alcohol, tobacco, or IV drug use. Allergies: DOXYCYCLINE, IODINE. Medications At Home: Carvedilol 6.25 mg twice daily, lisinopril 10 mg daily, simvastatin 20 mg daily , folate 1 mg daily, hydralazine 25 mg daily, omeprazole 40 mg daily, ferrous sulfate 325 mg daily, m agnesium oxide 250 mg daily, Senokot-S 1-3 tablets as needed, aspirin 81 mg daily, PreserVision AREDS twice daily with men's multivitamin daily. Surgical History: Multiple cardiac stents. Review of Systems: Mr. Thomas had no recent fevers, chills, nausea, vomiting, myalgias, arthralgias, rash, headache, weig ht change, or active psychiatric issues. Physical Examination: Vital Signs: Blood pressure 145/60, pulse 63, respiratory rate 18, temperature is afebrile, oxygen s aturation 100% on 2 L oxygen by nasal cannula. Weight 157 pounds, height 5 feet and 7 inches. General: Mr. Thomas is resting in bed. He is in no acute distress. HEENT: Normocephalic, atraumatic. Sclerae are anicteric. Oropharynx is moist. Neck: Supple. Chest: Clear. Heart: Irregularly irregular. Extremities: Show no clubbing, cyanosis, or edema. Abdomen: Soft. Neurological: He is alert and oriented to himself. He does follow commands with some simple repeate d instructions. He has poor labial, lingual, and guttural sounds and mild expressive and receptive a phasia. He has mild incoordination of the left upper extremity and lower extremity. Otherwise, no s tocking-glove loss to light touch, temperature. Depressed reflexes with stress noted in upper and lo wer extremities. The patient actually will be ambulated with the physical therapist. NIH stroke sca le of 3. Laboratory Studies: White blood cell count 6.4, hemoglobin of 10.5, platelets 240. INR 1.29. Chemi stries: Sodium 138, potassium 3.3, chloride 100, carbon dioxide 21, BUN 35, creatinine 3.97. Please note, he is actually on hemodialysis 3 days a week. HDL cholesterol 38, LDL cholesterol 22, total c holesterol 73. Assessment: Mr. Thomas is an 88-year-old patient in the acute stroke in the posterior branch of the l eft middle cerebral artery, illustrating aphasia and incoordination in his left upper and lower extre mities. He has chronic atrial fibrillation and is not on any anticoagulation due to history of GI bl eeds. He has multiple stroke risk factors. Currently on aspirin and Plavix along with Lovenox, foli c acid, statin, and AMADOU inhibitor. Plan: The patient should be on full anticoagulation with careful followup for the possible GI bleed to reduce his risk of stroke given atrial fibrillation carries identifiable stroke risk increase. Th is was discussed with the patient's family and will be further discussed with Dr. Roque Santiago, his c ardiologist and the Renal [facility]. Otherwise, he may be evaluated by physical, occupational, and spe ech therapist to determine his level of need for his stroke. It should be noted that he did have a b edside swallow evaluation and has been cleared for swallowing, but at the time of my evaluation nallely asher the lunchtime, he did have some coughing while eating lunch. He should have a barium swallow evalu ation. HEMAL/MORENA Voice ID: [id number] Report ID: [id number]
[2018-09-03] MEDS: ENOXAPARIN 60 MG/0.6 ML SQ SCH (06:00)
[2018-09-03] MEDS: PANTOPRAZOLE 40MG TABLET PO SCH (06:23)
[2018-09-03 06:26] LABS: Magnesium 1.9 mg/dL (1.8-2.4); Potassium 3.6 mmol/L (3.5-5.1)
[2018-09-03 06:32] LABS: Ferritin 987.6 ng/mL (26-388)
--- NOTE | 2018-09-03 08:23 | CON ---
Date of Consultation: 09/02/2018 Chief Complaint: Cerebrovascular accident and congestive heart failure. Reason For Consult: Fluid overload, elevated BUN and creatinine, hemodialysis. History Of Present Illness: The patient is unable to provide history. History is obtained from nico t and family at bedside. An 88-year-old man with past medical history of end-stage renal disease and on hemodialysis by left AV fistula on Thursday, Thursday, and Thursday. History of congestive heart fa ilure, AFib, on anticoagulation, and coronary artery disease. The patient was admitted for slurred s peech . Chest x-ray showed pulmonary edema and congestion. Head CT was negative. The pat ient denies chest pain, nausea, vomiting or diarrhea. Past Medical History: As above. Review of Systems: As in HPI. Past Surgical History: Left AV fistula. Family History: Father with history of coronary artery disease. Sister with diabetes and colon canc er. Social History: Never a smoker. No history of alcohol or recreational drug abuse. Allergies: DOXYCYCLINE AND IODINE. Medications At Home: Aspirin, Coreg, hydralazine, lisinopril, simvastatin, multivitamin, omeprazole. Physical Examination: Vital signs: Temperature 96.6, pulse 63, respiratory rate 22, blood pressure 145/60. General: Awake and alert, not in distress. Heart: Regular rate and rhythm. Normal S1 and S2. Chest: Clear to auscultation bilaterally. Abdomen: Soft and nontender. Extremities: No edema. Laboratory Data: White count 6.4, hemoglobin 10.5, platelet count 214. Sodium 138, potassium 3.3, B UN 35, creatinine 3.9, calcium 8.2, and albumin 2.4. Assessment And Plan: 1.End-stage renal disease, on hemodialysis today for fluid overload and then will resume patient's s chedule. medication. 2.Cerebrovascular accident with mild aphasia. The aphasia is improving now. Head CT negative. Foll ow up MRI and carotid doppler results. 3.Anemia. We will hold Epogen, . Recently B12 and within normal limits. We wi ll check iron panel. 4.Metabolic bone disease. Corrected calcium within normal. We will check phosphorous. 5.Congestive heart failure, not in distress. Continue oxygen. We will do dialysis today. 6.Atrial fibrillation. He is on anticoagulation due to history of gastrointestinal bleeding, on Keesha enox right now. as per Cardiology. 7.Rehabilitation. Continue physical therapy and occupational therapy evaluation and speech and swal low evaluation. POP Voice ID: [id number] Report ID: [id number]
[2018-09-03 08:41] LABS: Hematocrit 32.2 % (39.6-49.0); MPV 7.7 fL (7.6-11.3); RBC Red Blood Cell Count 3.51 M/uL (4.33-5.43)
[2018-09-03] MEDS ORDERED: POTASSIUM 25 MEQ EFFERV TAB PO ONE (09:00)
--- NOTE | 2018-09-03 09:07 | PN ---
Mr. Thomas has evidence of a stroke due to a posterior branch of the left middle cerebral artery consi stent with the place of his infarct consistent with his speech deficit. I would think this is most l ikely to be a cardioembolic event. The big question is whether he would be able to tolerate anticoag ulation at all. With him on Lovenox, his hemoglobin dropped almost a gram overnight. We will check another CBC today and see if him taking Lovenox is tolerated. If it is, we can try apixaban 2.5 b.i. d. to prevent further strokes, but in the past, we have abandoned this because of actual bleeding wit nessed or concerns that he would bleed. JOYCE/MORENA Voice ID: [id number] Report ID: [id number]
[2018-09-03] MEDS: CLOPIDOGREL 75 MG TABLET PO SCH (10:07)
[2018-09-03] MEDS: CARVEDILOL 12.5 MG TAB PO SCH (10:07)
[2018-09-03] MEDS: ASPIRIN EC 81 MG TAB PO SCH (10:08)
--- NOTE | 2018-09-03 14:34 | P.PN ---
Subjective Date of Service: 09/03/18 Chief Complaint: CVA Subjective: Improving Patient seen and evaluated at bedside. Family at bedside. Chart reviewed and case discussed with nursing staff Pateint seems to know what he would like to say but unable to find words, seems to be slightly improved though, Was able to tell us that he has not had his sennakot x 2 days and therefore not had a bowel movement. Review of Systems 10-point ROS is otherwise unremarkable Physical Examination - Vital Signs Temperature: 96.6 F Blood Pressure: 145/60 Pulse: 63 Respirations: 22 Pulse Ox (%): 100 - Physical Exam General: Alert, In no apparent distress HEENT: Atraumatic Neck: 2+ carotid pulse no bruit Respiratory: Clear to auscultation bilaterally, Normal air movement Cardiovascular: Normal pulses, Regular rate/rhythm Gastrointestinal: Normal bowel sounds Neurological: Abnormal speech Assessment And Plan - Current Problems (Diagnosis) (1) Acute CVA (cerebrovascular accident) Onset Date: 09/01/18 Current Visit: Yes Status: Acute (2) History of GI bleed Current Visit: Yes Status: Acute (3) CAD (coronary artery disease) Onset Date: 06/11/17 Current Visit: No Status: Chronic Qualifiers: Coronary Disease-Associated Artery/Lesion type: tribal artery [place] vs. transplanted heart: tribal heart Associated angina: with stable angina Qualified Code(s): I25.118 - Atherosclerotic heart disease of tribal coronary artery with other forms of angina pectoris (4) CHF (congestive heart failure) Onset Date: 10/26/17 Current Visit: No Status: Chronic Qualifiers: Heart failure type: systolic Heart failure chronicity: chronic Qualified Code(s): I50.22 - Chronic systolic (congestive) heart failure (5) ESRD on hemodialysis Onset Date: 02/15/18 Current Visit: No Status: Chronic (6) HTN (hypertension) Onset Date: 06/11/17 Current Visit: No Status: Chronic Qualifiers: Hypertension type: essential hypertension Qualified Code(s): I10 - Essential (primary) hypertension - Plan Acute CVA Continue anticoagulation with lovenox at this time. Will need to closely monitor for any bleeding and closely monitor H&H Continue with PT, OT, and speech therapy. Neuro consult, Recommendations appreciated. CAD CHF, chronic systolic Cardiac medications Cardiology consultation, Recommendations appreciated. ESRD, on HD Nephrology consult, Recommendations appreciated HD per nephro History of GI bleed Continue lovenox at this time. Monitor H&H/bleeding. If tolerated, will consider changing to PO anticoagulation. Will discuss with cardiology.
--- NOTE | 2018-09-03 15:49 | RAD REPORT ---
EXAM DESCRIPTION: RAD - Barium Swallow Modified - 09/03/2018 3:42 pm CLINICAL HISTORY: Difficulty swallowing, CVA COMPARISON: October 2017 TECHNIQUE: The patient was given liquid, semi-solid and solid forms of barium. Lateral view fluorosc opic imaging was performed in conjunction with speech pathology service. FINDINGS: Cineloop acquisitions: 16 Fluoro time: 3:24 minutes Laryngeal penetration: cleared with large cup sip thin Pharyngeal residue: vallecular, mild with thin and pill with thin. Pyriform with mild to moderate with honey, pill with thin via cup sip. reduced to minimum on subsequ ent swallow. barium tablet got stuck in esophagus, did not clear with thin liquid or pudding wash. IMPRESSION: Modified barium swallow as detailed above and on speech pathology report.
[2018-09-03 16:22] VITALS: BP 122/57; TEMP 97.2
--- NOTE | 2018-09-03 19:44 | PN ---
Date of Progress Note: 09/03/2018 Subjective: The patient with end-stage renal disease on hemodialysis Thursday, Thursday and Thursday at home. The patient was admitted for slurred speech. MRI of left parietal lobe, infarct. The patien t has stable vitals today. Tolerated hemodialysis yesterday. We will do dialysis on Thursday, then resume his schedule Thursday, Thursday, and Thursday. Plan to transfer to rehab. We will hold on Epoge n due to stroke. We will start on IV iron. Objective: VITAL SIGNS: Temperature 97.8, pulse 61, blood pressure 114/53. General: Awake and alert, not in distress. Heart: Regular rate and rhythm. Normal S1 and S2. Chest: Clear to auscultation bilaterally. No rubs or wheezes. Abdomen: Soft and nontender. Extremities: No edema. Laboratory Data: White count 6.2, hemoglobin 10.2, platelet of 17. Sodium 138, potassium 3.6, BUN 2 6, creatinine 3.5, calcium 8.3. Assessment And Plan: 1.End-stage renal disease. The patient on hemodialysis Thursday, Thursday, and Thursday at home. We w ill dialyze him tomorrow on Thursday, then resume his home scheduled Thursday, Thursday, and Thursday. 2.Anemia. We will hold on Epogen right now due to stroke. We will start on IV iron. 3.Metabolic bone disease. Continue binders. 4.Cerebrovascular accident. MRI, left parietal lobe infarct. Continue PT/OT. Anticoagulation on h old due to high risks of GI bleeding. On aspirin and Plavix. The patient right now on Lovenox. Possible plan to start him on apixaban as per Cardiology. 5.Deconditioning, PT/OT. AA/MODL Voice ID: [id number] Report ID: [id number]
[2018-09-03] MEDS ORDERED: DOCUSATE NA/SENNA CONC 1 TAB PO SCH (21:00)
[2018-09-04] MEDS ORDERED: SOD FERRIC GLUC COMPLX/SUCROSE 125 MG in NA CHLORIDE 0.9% 100 ML IV SCH (09:00)
== END 2018-09-03 17:54 | DRG 64 ==
LOC: ER 21:13 → ERHOLD 22:28 → 4TH 23:43
PROVIDERS: ADMIT Hospitalist; ATTEND Family Medicine
PROC: 5A1D70Z Performance of Urinary Filtration, Intermittent, Less than 6 Hours Per Day (ICD-10-PCS; principal; 2018-09-02)
DX: I63.89 Other cerebral infarction (principal); N18.6 End stage renal disease; I13.2 Hypertensive heart and chronic kidney disease with heart failure and with stage 5 chronic kidney disease, or end stage renal disease; I50.22 Chronic systolic (congestive) heart failure; R47.01 Aphasia; I25.118 Atherosclerotic heart disease of native coronary artery with other forms of angina pectoris; Z99.2 Dependence on renal dialysis; E78.2 Mixed hyperlipidemia; Z85.038 Personal history of other malignant neoplasm of large intestine; Z85.828 Personal history of other malignant neoplasm of skin; I48.2 Chronic atrial fibrillation; Z95.5 Presence of coronary angioplasty implant and graft; R29.703 NIHSS score 3; E87.70 Fluid overload, unspecified; N25.0 Renal osteodystrophy; D64.9 Anemia, unspecified; Z87.898 Personal history of other specified conditions; Z79.02 Long term (current) use of antithrombotics/antiplatelets; Z79.82 Long term (current) use of aspirin
CPT/HCPCS: 36415; 70450; 70544; 70551; 71045; 74230; 80048; 80053; 80061; 82728; 82962; 83540; 83735; 84100; 84466; 84484; 85025; 85027; 85610; 85730; 90935; 92523; 92610; 92611; 93005; 93306; 93880; 97116; 97163; 97165; 99285; J1650; J2916; J7030

== ENCOUNTER 2018-09-03 13:41 | Inpatient (IN) | payer OTHER ==
--- NOTE | 2018-09-03 15:42 | R.PREADM ---
SCREENING DATE AND TIME 09/03/2018 14:12 (CDT) ANTICIPATED REHAB ADMISSION DATE 09/05/2018 REFERRING FACILITY [facility] REFERRAL DATE AND TIME 09/03/2018 14:13 (CDT) REFERRAL ROOM# [id number] ACUTE ADMIT DATE 09/01/2018 Previous Rehabilitation(s): No. 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 Deandre Solis M.D. MR# [id number] NAME EVANS ROSS ADDRESS [address] [facility] [address] [facility] PHONE [facility] [id number] DATE OF 1930 AGE 88 SSN# [id number] GENDER male MARITAL STATUS RACE white ADMIT FROM 02 - [facility] PRE-HOSPITAL LIVING SETTING 01 - Home (private home/apt. board/care, assisted living, half-way, transitional living) HOME TYPE AND DETAILS Type of home: two sandy # of steps within the residence: 0 # of levels in the residence: 2 # of steps to enter the residence: 4 PRE-HOSPITAL LIVING WITH Family/Relatives FAMILY SUPPORT Yes PRIMARY FAMILY CONTACT NAME Monisha ROSS PRIMARY FAMILY CONTACT PHONE PHONE PRIMARY FAMILY CONTACT ON ADM.? no IS PRIMARY FAMILY CONTACT AUTH. REP.? no 1ST EMERGENCY CONTACT Monisha ROSS 1ST CONTACT PHONE PHONE 1ST CONTACT ON ADM. no IS 1ST CONTACT AUTH. REP.? no PHONE 2ND CONTACT ON ADM.? no PATIENT EMPLOYMENT STATUS Retired (for age) PATIENT EMPLOYER No Employer PAYOR INFORMATION: 1ST PAYOR NAME MEDICARE 1ST PAYOR PHONE [phone] 1ST PAYOR INJURY/ILLNESS DUE TO ACCIDENT? No ANOTHER GREEN PARTY RESPONSIBLE? No PRIMARY REHAB/ACUTE DIAGNOSIS: ACUTE LEFT PARIETAL LOBE INFARCTION ONSET DATE 09/01/2018 REHAB IMPAIRMENT CATEGORY (ROLAND): 01 Stroke (STR) MEETS 60% rule AFFECTED EXTREMITIES: RLE, and RUE PRIMARY DIAGNOSIS-RELATED SURGERIES: N/A COMORBID REHAB/ACUTE DIAGNOSES: - Tier 1 Dependence on renal dialysis (Z99.2) - N/A CAD ANGINA HYPERTENSION HYPERLIPIDEMIA COLON CA CKD STAGE 3 SKIN CANCER DYSPNEA ESRDA ADD/ADHD ANEMIA CHF INTERVENTIONS: - CAD 02 sats Activity management Medications VS - Hypertension Fluid management Medications VS RISK FOR COMPLICATIONS: - CAD CHF Cardiac Arrest ID Pain - Hypertension CVA Hypotension ID TIA SUMMARY OF ACUTE HOSPITALIZATION: Pt. is a 88 yo Right-handed white male. On 09/01/2018 Pt. presented to [facility] with sudden onset of right-side weakn ess. On 09/01/2018 he was admitted to [facility] with diagnosis ACUTE LEFT PARIETAL LOBE INFARCTION. His impairment category is Stroke 01 - Right Body (Left Brain) (01.2). Pre-morbidly, Pt. was independent/mod-I in Self-Care, Sphincter Control, Transfers Control, Locomotio n, Communication, and Social Cognition; and he had good Sphincter Control. Currently, he has deficits of Transfers Control, Locomotion, Communication, Endurance, Balance, Safet y Awareness, and Self-Care. Pt. is now referred to [facility] for acute in-patient rehabilitation in order to maximize patient's functional independence in activities of daily living, strength, ROM, and mobi lity. Patient has realistic goal of being discharged at assistance level 3-modA to reside at Home with Fam ming/Relatives. Evans Ross is an 88 year old male that lives in a two sandy home with spouse and family. Patient manages to ambulate without assistive device. On 09/01/2018, he started to have slurred speech and was admitted to [facility] and treated. He is now medically stable but in need of 24-hour nursing, doctor supervision and oversite while receiving acti ve and ongoing intensive PT, OT expected to participate in 3hours of therapy a day/15 hours per week and receive care with an intensive interdisciplinary approach. PAST MEDICAL HISTORY ADD/ADHD ANEMIA ANGINA CAD CHF CKD STAGE 3 COLON CA DYSPNEA Dependence on renal dialysis (Z99.2) ESRDA HYPERLIPIDEMIA HYPERTENSION SKIN CANCER PAST SURGICAL HISTORY: PART OF COLON REMOVED RIGHT SHOULDER SURGERY LEFT FISTULA RIGHT ROXANA REMOVAL OF SKIN CA FROM LEFT EAR, FACE AND RIGHT HAND MEDICATION ALLERGIES: DOXYCYCLINE Iodine ENVIRONMENTAL ALLERGIES: None Known - Substance Allergies None Known - Other Allergies None Known CODE STATUS: Full code WEIGHT/HEIGHT/BMI: WEIGHT 157 lbs HEIGHT 5' 7" BMI 24.6 DIET: - Diet Type Regular - Diet - Solid Texture Regular - Diet - Liquid Texture Regular - Tube Feed N/A REVIEW OF SYSTEMS: - Gen Alert and awake Lying in bed No apparent distress Oriented to: person, time, and place - Vital Signs Temperature: 96.6 F SBP/DBP: 145/60 Pulse: 63 Resp: 22 Vital signs stable, afebrile - CVS RRR VITAL SIGNS Temperature: 96.6 F SBP/DBP: 145/60 Pulse: 63 Resp: 22 Vital signs stable, afebrile CURRENT SPHINCTER CONTROL: Pre-hospital bladder status: continent # of bladder accidents in the last 7 days prior to screenin Pre-hospital bowel status: continent # of bowel accidents in the last 7 days prior to screenin Last Bowel Movement Date: 09/03/2018 DETAILED CURRENT FUNCTIONAL STATUS: - Bladder accident frequency: Ind - No accidents in the past 7 days - Bowel accident frequency: Ind - No accidents in the past 7 days - Walking score based on distance walked: 3(>=150ft) - Wheelchair score based on distance traveled: 0(N/A) FUNCTIONAL STATUS: - Self-Care A. Eating Ind Ind B. Grooming Ind Ind C. Bathing Ind sup D. Dressing - Upper Ind sup E. Dressing - Lower Ind Gale F. Toileting Ind Gale - Sphincter Control G: Bladder control Ind Ind H: Bowel control Ind Ind - Transfers Control I. Bed/Chair/Wheelchair Ind CGA J. Toilet Ind CGA K. Tub/Shower Ind ADNO - Locomotion L. Walk/Wheelchair (C) Ind CGA L. Walk/Wheelchair (W) Ind CGA M. Stairs Ind ADNO - Communication N. Comprehension (B) Ind Gale O. Expression (B) Ind modA - Social Cognition P. Social Interaction Ind Princess Q. Problem Solving Ind Princess R. Memory Ind Princess - Endurance Fair - Balance Fair - Safety Awareness Fair CURRENT FUNC. DEFICITS: Transfers Control, Locomotion, Communication, Endurance, Balance, Safety Awareness, and Self-Care THERAPY NOTES FROM ACUTE CARE: Attached. SPECIAL NEEDS: - Safety Concerns Skin breakdown precautions needed due to skin breakdown risk PATIENT NEEDS ACTIVE AND ONGOING THERAPEUTIC INTERVENTION OF MULTIPLE THERAPY DISCIPLINES, INCLUDING: - Occupational Therapy Evaluate and Treat. Visual Perceptual Training. Cognitive Retraining. - Speech Therapy Cognitive Training. Memory Strategies. Speech Intelligibility Training. Expressive Language Skills. R eceptive Language Skills. - Physical Therapy Evaluate and Treat. PATIENT NEEDS CLOSE MEDICAL SUPERVISION BY A REHABILITATION PHYSICIAN FOR: Bowel and Bladder Management Coordination of Treatment Team Medical and Co-Morbidity Management DVT Management PATIENT REQUIRES 24X7 REHAB NURSING FOR MEDICAL AND FUNCTIONAL MGT. OF THE FOLLOWING DEFICITS: ADL's Ambulation Bowel and Bladder Management Cognition Communication Disease Management Medication Management Patient/Family Education Providing Safe Environment Transfers PATIENT REQUIRES INTENSIVE, COORDINATED INTERDISCIPLINARY APPROACH TO REHAB: Arranging Home Equipment/Services Discharge Planning Family Intervention/Training Head Girls Golf Coach/Case Management PATIENT REHAB POTENTIAL: Expected level of measurable improvement will be of a practical value to patient's functional capacit y or adaptations to impairments Has a viable Discharge Plan Medically appropriate; condition is sufficiently stable to participate in intensive rehab program Patient is able and expected to receive 3 hours of individualized therapy daily on at least 5 of ever y 7 days Patient's prognosis for significant practical improvement within a reasonable period of time appears Good DISCHARGE PLAN: - Estimated Length of Stay (days) 17. - Consensus on plan Discharge plan has been discussed with primary caregiver. Patient/Family is in agreement with the cami n. Primary caregiver is in agreement with the plan. - Patient/Family Goals Return home with assistance. - Planned Living Setting Upon Discharge Home, to live with Family/Relatives. Transitional Living. RECOMMENDED CARE LEVEL: IRF RECOMMENDATION DETAILS: Recommended Admission to Comprehensive Rehabilitation Program to Increase Functional [place] SCREENER'S COMPLETENESS CONFIRMATION: - Screening Confirmation The patient data collection on this preadmission screening form is finished PHYSICIANS REVIEW AND ADMISSION DETERMINATION Admit - Based on my review of the Pre-Admission Screening results, in my medical judgment and experie nce, I concur with the findings and recommend admission to [facility], as this patient requires an IRF level of care. SIGNATURE PANEL: Clinical Liaison - [electronically] signed by Eva Ramirez on 09/03/2018 at 15:38 (CDT) Physician Reviewer - [electronically] signed by Dr. Deandre Solis M.D. on 09/03/2018 at 15:41 (CDT )
--- OUTSIDE RECORDS SUMMARY | 2018-09-03 18:01 | XMS REPORT | Clinical Summary ---
:1930 Author Organization [facility] Address [address] [place] [address] Care Team Providers Name Role Phone Asked, [...] follow- up MD examination (Primary Dx) after 09/02/2017 Social History Tobacco Use Types Packs/Day Years [...] INFLUENZA VACCINE 01/06/2018 Results Not on fileafter 09/02/2017 Insurance Payer Benefit Plan / Group Subscriber ID Type Phone Address MEDICARE MEDICARE PART A AND B xxxxxxxxxx Medicare [place], [place] AETNA A[employer] PPO OPEN CHOICE xxxxxxxxx PPO Advance Directives Patient has advance care planning documents on file. For more information, please contact:[place] [address]
[2018-09-03] MEDS: ATORVASTATIN 20 MG TAB PO SCH (20:10)
[2018-09-03] MEDS: DOCUSATE NA/SENNA CONC 1 TAB PO PRN (20:10)
[2018-09-03] MEDS: CARVEDILOL 6.25 MG TAB PO SCH (20:11)
[2018-09-04] MEDS ORDERED: HYDRALAZINE HCL 25 MG TABLET PO PRN (00:34)
[2018-09-04 05:48] LABS: Urine Appearance CLOUDY; Urine Bilirubin NEGATIVE (NEG); Urine Blood 2+ (NEG); Urine Color YELLOW; Urine Glucose NEGATIVE (NEG); Urine Protein 3+ (NEG); Urine Specific Gravity 1.015 (1.005-1.030); Urine Urobilinogen 0.2 mg/dL (0.2-1.0)
[2018-09-04 06:29] LABS: Urine Bacteria <20 /HPF (NONE SEEN); Urine RBC >50 /HPF (NONE SEEN)
[2018-09-04 06:30] LABS: Urine Culture Reflex Order NOT NEEDED
[2018-09-04] MEDS: PANTOPRAZOLE 40MG TABLET PO SCH (06:45)
[2018-09-04 06:54] LABS: Absolute Lymphocytes (CBC) 1.1 K/uL (0.7-4.9); Absolute Monocytes 0.6 K/uL (0.1-1.3); Basophils % 1.2 % (0-1.3); Eosinophils % 3.4 % (0-4.4); Hematocrit 38.4 % (39.6-49.0); Lymphocytes % 17.7 % (15.3-44.8); MPV 6.9 fL (7.6-11.3); Monocytes % 9.9 % (3.3-12.3); RBC Red Blood Cell Count 4.15 M/uL (4.33-5.43)
[2018-09-04 07:19] LABS: Albumin 2.9 g/dL (3.4-5.0); Potassium 4.1 mmol/L (3.5-5.1); Prealbumin 14.8 mg/dL (20-40)
[2018-09-04] MEDS: OCUVITE (VIT A,C & E/LUTEIN/MINERAL) TABLET PO SCH (08:00)
[2018-09-04] MEDS: FERROUS SULFATE 325 MG TAB PO SCH (08:23)
[2018-09-04] MEDS: MAGNESIUM OXIDE 400 MG TAB PO SCH (08:23)
[2018-09-04] MEDS: MULTIVITAMINS,THERAPEUT 1 TAB PO SCH (08:23)
[2018-09-04] MEDS: FOLIC ACID 1 MG TABLET PO SCH (08:23)
[2018-09-04] MEDS: ASPIRIN EC 81 MG TAB PO SCH (08:23)
[2018-09-04] MEDS: LISINOPRIL 10 MG TAB PO SCH (08:24)
[2018-09-04] MEDS: CARVEDILOL 6.25 MG TAB PO SCH ×2 (08:24→20:09)
--- NOTE | 2018-09-04 14:25 | FAST ---
SHIFT START DATE/TIME: 09/04/2018 07:00 (CDT) SHIFT END DATE/TIME: 09/04/2018 19:00 (CDT) NAME JOSE ALEJANDRO ROSS DATE OF : 1930 DATE OF ADMISSION: 09/03/2018 17:45 (CDT) PHONE: AGE: 88 N# [id number] GENDER: Male ENCOUNTER PHYSICIAN: Dr. Deandre Solis M.D. ADMISSION DIAGNOSIS: - Stroke 01 - Right Body (Left Brain) (01.2) ACUTE LEFT PARIETAL LOBE INFARCTION. EATING: EATING - STEP 1: Does the patient require the assistance of a person or device, or need extra time when eating? Yes. EATING - STEP 2: Does the patient require the assistance of a helper? Yes. EATING - STEP 3: Does the patient perform half or more of the eating tasks? Yes. EATING - STEP 4: Does the patient need only supervision, cuing, coaxing OR help to apply an orthosis OR help to cut fo od, open containers, pour liquids, or butter bread? Yes. EATING - SCORE: 5-SUP GROOMING: Activity did not occur on this shift GROOMING - SCORE: 0-UNK BATHING: Activity did not occur on this shift BATHING - SCORE: 0-UNK DRESSING - UPPER BODY: Activity did not occur on this shift ARTICLES SCORE Total number of steps: 0 DRESSING - UPPER BODY - SCORE: 0-UNK DRESSING - LOWER BODY: Activity did not occur on this shift ARTICLES SCORE Total number of steps: 0 DRESSING - LOWER BODY - SCORE: 0-UNK TOILETING: TOILETING - STEP 1: Does the patient require the assistance of a person or device, or need extra time with toileting? Yes . TOILETING - STEP 2: Does the patient require the assistance of a helper? Yes. TOILETING - STEP 3: How much assistance does the patient require from the helper? Hands-on assistance from the helper TOILETING - STEP 4: Of the 3 tasks: 1) Adjusting clothing prior to use, 2) Cleansing of perineal area, 3) Adjusting clot dileep after use; How many tasks does the patient perform WITHOUT assistance of the helper? Three tasks with steadying assistance from the helper TOILETING - SCORE: 4-MIN BLADDER MANAGEMENT: BLADDER MANAGEMENT - STEP 1: Does the patient control the bladder completely and intentionally without equipment or devices or med ications, and is always continent? No. BLADDER MANAGEMENT - STEP 2: Does the patient require the assistance of a helper? No, patient only requires extra time BLADDER MANAGEMENT - SCORE: 6-CATHY BLADDER MANAGEMENT - FREQUENCY OF ACCIDENTS: BLADDER MANAGEMENT(FA) - STEP 1: How many accidents has the patient had during the current shift? 0 BOWEL MANAGEMENT: BOWEL MANAGEMENT - STEP 1: Does the patient control bowels completely and intentionally without equipment devices or medications AND is always continent? No. BOWEL MANAGEMENT - STEP 2: Does the patient require the assistance of a helper? No, patient requires medication for control such as stool softeners, suppositories, laxatives, enemas, or OTC medications BOWEL MANAGEMENT - SCORE: 6-CATHY BOWEL MANAGEMENT - FREQUENCY OF ACCIDENTS: BOWEL MANAGEMENT(FA) - STEP 1: How many accidents has the patient had during the current shift? 0 TRANSFERS: BED, CHAIR, WHEELCHAIR: TRANSFERS: BED, CHAIR, WHEELCHAIR - STEP 1: Does the patient require assistance of a person or device, or need extra time with bed, chair, or whe elchair transfers? Yes. TRANSFERS: BED, CHAIR, WHEELCHAIR - STEP 2: Does the patient require the assistance of a helper? Yes. TRANSFERS: BED, CHAIR, WHEELCHAIR - STEP 3: How much assistance does the patient require from the helper? Steadying/guiding assistance TRANSFERS: BED, CHAIR, WHEELCHAIR - SCORE: 4-MIN TRANSFERS: TOILET: TRANSFERS: TOILET - STEP 1: Does the patient require the assistance of a person or device, or need extra time with toilet transfe rs? Yes. TRANSFERS: TOILET - STEP 2: Does the patient require the assistance of a helper? Yes. TRANSFERS: TOILET - STEP 3: How much assistance does the patient require from the helper? Patient performs half or more of the tr ansferring tasks TRANSFERS: TOILET - STEP 4: Does the patient need only incidental help such as contact guard or steadying during toilet transfer? Yes. TRANSFERS: TOILET - SCORE: 4-MIN TRANSFERS: SHOWER: Activity did not occur on this shift TRANSFERS: SHOWER - SCORE: 0-UNK TRANSFERS: TUB: Activity did not occur on this shift TRANSFERS: TUB - SCORE: 0-UNK LOCOMOTION: WALK: LOCOMOTION: WALK - STEP 1: Does the patient need help from a person or device, or need extra time to walk 150 feet? Yes. LOCOMOTION: WALK - STEP 2: How much assistance does the patient require to walk a minimum of 150 feet? More than incidental help LOCOMOTION: WALK - SCORE: 3-MOD LOCOMOTION: WHEELCHAIR: Activity did not occur on this shift LOCOMOTION: WHEELCHAIR - SCORE: 0-UNK COMPREHENSION: COMPREHENSION: TYPE: Both COMPREHENSION - STEP 1: Does the patient require help from a person or device, or need extra time to understand complex and a bstract ideas (such as current events, finances, discharge planning, medical issues, relationships, e tc)? Yes. COMPREHENSION - STEP 2: Does the patient require help to understand questions or statements about basic needs or ideas (such as hunger, thirst, sleep, safety, daily schedule, room location, or discomfort) half or more of the t ezio? No. COMPREHENSION - STEP 3: How often does the patient need help to understand directions and conversation about basic needs? 10% - 24% of the time COMPREHENSION - SCORE: 4-MIN EXPRESSION EXPRESSION: TYPE: Both EXPRESSION - STEP 1: Does the patient require help from a person or device, or need extra time expressing complex and abst ract ideas (such as current events, finances, discharge planning, medical issues, relationships, etc) ? Yes. EXPRESSION - STEP 2: Does the patient require help to express basic necessities or ideas (such as hunger, thirst, sleep, s afety, daily schedule, room location, or discomfort) half or more of the time? No. EXPRESSION - STEP 3: How often does the patient need help to express directions and conversation about basic needs? 10-24% of the time EXPRESSION - SCORE: 4-MIN SOCIAL INTERACTION: SOCIAL INTERACTION - STEP 1: Does the patient require a helper to interact with others in social and therapeutic situations? No. SOCIAL INTERACTION - STEP 2: Does the patient need extra time in social situations, OR does s/he interact with staff, other patien ts, and family members ONLY in structured environments, OR does s/he require medication for social in teraction? Yes, patient needs extra time SOCIAL INTERACTION - SCORE: 6-CATHY PROBLEM SOLVING: PROBLEM SOLVING - STEP 1: Does the patient need help from a person or device, or need extra time to solve complex problems such as managing a checking account or confronting interpersonal problems? Yes. PROBLEM SOLVING - STEP 2: Does the patient solve basic routine problems half or more of the time? Yes. PROBLEM SOLVING - STEP 3: How often does the patient need help to solve basic routine problems? 10%-24% of the time PROBLEM SOLVING - SCORE: 4-MIN MEMORY: MEMORY - STEP 1: Does the patient need help from a person or device, or need extra time to remember frequently encount ered people, daily routines, and executing requests? Yes. MEMORY - STEP 2: How often does the patient need help to remember frequently encountered people, daily routines, and e xecuting requests? 10% - 24% of the time MEMORY - SCORE: 4-MIN SIGNATURE PANEL: The following modified sections: Eating - Score, Grooming - Score, Bathing - Score, Dressing - Upper Body - Score, Dressing - Lower Body - Score, Toileting - Score, Bladder Management - Score, Bowel Man agement - Score, Transfers: Bed, Chair, Wheelchair - Score, Transfers: Toilet - Score, Transfers: Rupa wer - Score, Transfers: Tub - Score, Locomotion: Walk - Score, Locomotion: Wheelchair - Score, Compre hension - Score, Expression - Score, Social Interaction - Score, Problem Solving - Score, Memory - Sc ore were [electronically] signed by Su Pop C.N.A. on ThuSep 04 2018 14:23:38 T-0500 (Centra l Daylight Time)
[2018-09-04] MEDS: ATORVASTATIN 20 MG TAB PO SCH (20:10)
[2018-09-04] MEDS: DOCUSATE NA/SENNA CONC 1 TAB PO PRN (20:53)
--- NOTE | 2018-09-04 21:44 | R.HP ---
FACILITY: [facility] ENCOUNTER DATE AND TIME: 09/04/2018 21:37 (CDT) MR#: [id number] NAME EVANS THOMAS ADDRESS: [address] [place] [address] CITY: [place] [address]IP [id number] PHONE: DATE OF : 1930 AGE: 88 SSN# [id number] GENDER: Male DEXTERITY Right-handed MARITAL STATUS RACE White PRE-HOSPITAL LIVING SETTING 01 - Home (private home/apt. board/care, assisted living, long-term, transitional living) PRE-HOSPITAL LIVING WITH Family/Relatives ENCOUNTER PHYSICIAN: Dr. Deandre Solis M.D. REFERRING DOCTOR: tiffany Bell DATE OF ADMISSION: 09/03/2018 17:45 (CDT) REFERRING FACILITY [facility] HOME TYPE AND DETAILS: Type of home: two sandy # of steps within the residence: 0 # of levels in the residence: 2 # of steps to enter the residence: 4 ADMISSION DIAGNOSIS: ACUTE LEFT PARIETAL LOBE INFARCTION ONSET DATE: 09/01/2018 PRIMARY DIAGNOSIS-RELATED SURGERIES: N/A SECONDARY/COMORBID DIAGNOSES (TIERED): - Tier 1 Dependence on renal dialysis (Z99.2) - N/A CAD ANGINA HYPERTENSION HYPERLIPIDEMIA COLON CA CKD STAGE 3 SKIN CANCER DYSPNEA ESRDA ADD/ADHD ANEMIA CHF HISTORY OF PRESENT ILLNESS (HPI): Pt. is a 88 yo Right-handed white male. On 09/01/2018 Pt. presented to [facility] with sudden onset of right-side weakn ess. On 09/01/2018 he was admitted to [facility] with diagnosis ACUTE LEFT PARIETAL LOBE INFARCTION. His impairment category is Stroke 01 - Right Body (Left Brain) (01.2). Pre-morbidly, Pt. was independent/mod-I in Self-Care, Sphincter Control, Transfers Control, Locomotio n, Communication, and Social Cognition; and he had good Sphincter Control. Currently, he has deficits of Transfers Control, Locomotion, Communication, Endurance, Balance, Safet y Awareness, and Self-Care. Pt. is now referred to [facility] for acute in-patient rehabilitation in order to maximize patient's functional independence in activities of daily living, strength, ROM, and mobi lity. Patient has realistic goal of being discharged at assistance level 3-modA to reside at Home with Fam ming/Relatives. Evans Thomas is an 88 year old male that lives in a two sandy home with spouse and family. Patient manages to ambulate without assistive device. On 09/01/2018, he started to have slurred speech and was admitted to [facility] and treated. He is now medically stable but in need of 24-hour nursing, doctor supervision and oversite while receiving acti ve and ongoing intensive PT, OT expected to participate in 3hours of therapy a day/15 hours per week and receive care with an intensive interdisciplinary approach. MEDICATION ALLERGIES: DOXYCYCLINE Iodine ENVIRONMENTAL ALLERGIES: None Known - Substance Allergies None Known - Other Allergies None Known PAST MEDICAL HISTORY: ADD/ADHD ANEMIA ANGINA CAD CHF CKD STAGE 3 COLON CA DYSPNEA Dependence on renal dialysis (Z99.2) ESRDA HYPERLIPIDEMIA HYPERTENSION SKIN CANCER PAST SURGICAL HISTORY: PART OF COLON REMOVED RIGHT SHOULDER SURGERY LEFT FISTULA RIGHT ROXANA REMOVAL OF SKIN CA FROM LEFT EAR, FACE AND RIGHT HAND FAMILY HISTORY: Family history is not contributory. SOCIAL HISTORY: - Home Living Family/Relatives REVIEW OF SYSTEMS: - Gen No Chills No Fatigue No Fever - Eyes No Double Vision No itchiness - ENMT No Difficulty Swallowing - CVS No Chest Discomfort No Chest Pain Fatigue No Weight Gain - Resp No Cough No Shortness of Breath - GI Continent No Abdominal Pain No Constipation No Diarrhea - Continent No Kidney Pain No Painful Urination No Urinary Urgency - MSK No Joint Pain No Muscle Cramps No Stiffness - Skin No Itching No Rash No Suspicious Lesions - Neuro Coordination Difficulty No Difficulty with Concentration No Memory Loss No Seizures Weakness - Psych No Anxiety No Depression No HIV Exposure No Persistent Infections No Seasonal Allergies - Endo No Cold/Heat Intolerance No Excessive Hunger No Excessive Thirst No Excessive Urination PHYSICAL EXAM - Gen Alert and awake Lying in bed No apparent distress Oriented to: person, time, and place - Skin No breakdown Normacephalic - Eyes No abnormalities - ENMT No abnormalities - Neck No abnormalities - CVS RRR - Chest No abnormalities - Resp Clear to auscultation - Abd +bowel sounds - GI Soft Deferred - Little urine production. On hemodialysis three times weekly. - Ext No significant edema - MSK 5-/5 weakness in left upper and lower extremity - Neuro Aphasia, dysarthria, 5-/5 strength left upper and lower extremities. Unsteady gait. - Psych Mild depression. VITAL SIGNS Temperature: 96.6 F SBP/DBP: 145/60 Pulse: 63 Resp: 22 NURSING: - Shower allowing shower - Bladder care per protocol - Skin care per protocol PRECAUTIONS: - Weight Bearing Precaution WBAT left LE ACTIVITIES OOB only with supervision FUNCTIONAL STATUS: - Self-Care A. Eating Ind Ind B. Grooming Ind Ind C. Bathing Ind sup D. Dressing - Upper Ind sup E. Dressing - Lower Ind Gale F. Toileting Ind Gale - Sphincter Control G: Bladder control Ind Ind H: Bowel control Ind Ind - Transfers Control I. Bed/Chair/Wheelchair Ind CGA J. Toilet Ind CGA K. Tub/Shower Ind ADNO - Locomotion L. Walk/Wheelchair (C) Ind CGA L. Walk/Wheelchair (W) Ind CGA M. Stairs Ind ADNO - Communication N. Comprehension (B) Ind Gale O. Expression (B) Ind modA - Social Cognition P. Social Interaction Ind Princess Q. Problem Solving Ind Princess R. Memory Ind Princess - Endurance Fair - Balance Fair - Safety Awareness Fair CURRENT FUNC. DEFICITS: Transfers Control, Locomotion, Communication, Endurance, Balance, Safety Awareness, and Self-Care ASSESSMENT: Pt. is a 88 yo Right-handed white male.On 09/01/2018 Pt. presented to [facility] with sudden onset of right-side weakness.On 09/01/2018 [facility] diagnosis ACUTE LEFT PARIETAL LOBE INFARCTION.His impairment category is Stroke 01 - Ri ght Body (Left Brain) (01.2).Pre-morbidly, Pt. was independent/mod-I in Self-Care, Sphincter Control, Transfers Control, Locomotion, Communication, and Social Cognition; and he had good Sphincter Contro l.Currently, he has deficits of Transfers Control, Locomotion, Communication, Endurance, Balance, Saf ety Awareness, and Self-Care.Pt. is now referred to [facility] for acute in-pa tient rehabilitation in order to maximize patient's functional independence in activities of daily li ving, strength, ROM, and mobility.- Rehab Goal Patient has realistic goal of being discharged at assistance level 3-modA to reside at Home with Fam ming/Relatives. Evans Thomas is an 88 year old male that lives in a two sandy home with spouse and family. Patient manages to ambulate without assistive device. On 09/01/2018, he started to have slurred speech and was admitted to [facility] and treated. He is now medically stable but in need of 24-hour nursing, doctor supervision and oversite while receiving acti ve and ongoing intensive PT, OT expected to participate in 3hours of therapy a day/15 hours per week and receive care with an intensive interdisciplinary approach.REHAB PLAN: for Dementia, TBI, Stroke, or others - Physical Therapy Gait dysfunction - to improve, our physical therapists will perform initial evaluation of pt's status upon admission and devise an individualized program for Gait Training, and Wheel Chair mobility Inability to transfer - to improve, our physical therapists will perform initial evaluation of pt's s tatus upon admission and devise an individualized program for Bed mobility Need for home safety evaluation - to improve, our physical therapists will perform initial evaluation of pt's status upon admission and devise an individualized program for Home Evaluation Need in caregiver upon discharge - to improve, our physical therapists will perform initial evaluatio n of pt's status upon admission and devise an individualized program for Caregiver Training New precaution - to improve, our physical therapists will perform initial evaluation of pt's status u karin admission and devise an individualized program for Patient precaution education Edema - to improve, our physical therapists will perform initial evaluation of pt's status upon admi ssion and devise an individualized program for Elevation Training, and Lymphedema Therapy Poor balance - to improve, our physical therapists will perform initial evaluation of pt's status upo n admission and devise an individualized program for Balance Training Poor endurance - to improve, our physical therapists will perform initial evaluation of pt's status u karin admission and devise an individualized program for Endurance Training Weakness - to improve, our physical therapists will perform initial evaluation of pt's status upon ad mission and devise an individualized program for Aquatic Therapy, Neuromuscular Reeducation, and Stre ngthening Achieving independence - to improve, our physical therapists will perform initial evaluation of pt's status upon admission and devise an individualized program for Community Reintegration Activities - Occupational Therapy ADL deficits - to improve, our occupation therapists will perform initial evaluation of pt's status u karin admission and devise an individualized program for Bathing, Bed mobility, Community Reintegration , Cooking, Dressing, Eating, Fine Motor Skills, Grooming, Homemaking, Kitchen Mobility, Laundry, Antonette ent Education, Safety Awareness, Splinting - Positioning, Transfers(Toilet, Tub, Shower), and Wheel C hair Management Need for care partner - to improve, our occupation therapists will perform initial evaluation of pt's s tatus upon admission and devise an individualized program for Caregiver Training Weakness - to improve, our occupation therapists will perform initial evaluation of pt's status upon admission and devise an individualized program for Aquatic Therapy, Balance, Endurance, UE ROM, and U E strengthening MEDICAL PLAN: - Diet Type Start Regular - Diet - Liquid Texture Start Regular - Tube Feed Start N/A - Bladder care per protocol - Weight Bearing Precaution WBAT left LE - Skin care per protocol - Diet - Solid Texture Regular - Shower shower DISCHARGE PLAN: - Estimated Length of Stay (days) 17. - Consensus on plan Discharge plan has been discussed with primary caregiver. Patient/Family is in agreement with the cami n. Primary caregiver is in agreement with the plan. - Patient/Family Goals Return home with assistance. - Planned Living Setting Upon Discharge Home, to live with Family/Relatives. Transitional Living. SIGNATURE PANEL: (CDT)
--- NOTE | 2018-09-04 21:45 | PAPE ---
PATIENT: [facility] MR# [id number] REFERRING DOCTOR tiffany Bell EVALUATION DATE AND TIME 09/04/2018 21:43 (CDT) NAME JOSE ALEJANDRO ROSS DATE OF 1930 AGE 88 PHONE N# [id number] GENDER male EVALUATING PHYSICIAN Dr. Deandre Solis M.D. ADMISSION DIAGNOSIS: ACUTE LEFT PARIETAL LOBE INFARCTION ONSET DATE 09/01/2018 SECONDARY/COMORBID DIAGNOSES TIERED: - Tier 1 Dependence on renal dialysis (Z99.2) - N/A CAD ANGINA HYPERTENSION HYPERLIPIDEMIA COLON CA CKD STAGE 3 SKIN CANCER DYSPNEA ESRDA ADD/ADHD ANEMIA CHF POST-ADMISSION FUNCTIONAL/MEDICAL STATUS: - Bladder Same accident frequency: Ind - No accidents in the past 7 days - Bowel Same accident frequency: Ind - No accidents in the past 7 days - Walking Same score based on distance walked: 3(>=150ft) - Wheelchair Same score based on distance traveled: 0(N/A) STATUS CHANGE EVALUATION: No change in Functional or Medical Status is identified compared with Pre-Admission screening. PATIENT NEEDS CLOSE MEDICAL SUPERVISION BY A REHABILITATION PHYSICIAN FOR: Bowel and Bladder Management Coordination of Treatment Team Medical and Co-Morbidity Management DVT Management PATIENT REQUIRES 24X7 REHAB NURSING FOR MEDICAL AND FUNCTIONAL MGT. OF THE FOLLOWING DEFICITS: ADL's Ambulation Bowel and Bladder Management Cognition Communication Disease Management Medication Management Patient/Family Education Providing Safe Environment Transfers PATIENT REQUIRES INTENSIVE, COORDINATED INTERDISCIPLINARY APPROACH TO REHAB: Arranging Home Equipment/Services Discharge Planning Family Intervention/Training Expanded Function Dental Assistant/Case Management LIST OF IDENTIFIED AND POTENTIAL PROBLEMS: Alteration in leisure activities Bladder, Incontinence Blood Pressure, Hypertension/hypotension Issues Bowel, Incontinence Fluid volume overload related to Congestive Heart Failure (CHF) Infection, Actual or Potential Mobility Impaired Pain, Alteration in Comfort Self Care Deficit Skin Integrity, Actual or Potential Urinary Tract Infection (UTI), Actual or Potential RISK FOR COMPLICATIONS - CAD CHF. Cardiac Arrest. WI. Pain. - Hypertension CVA. Hypotension. WI. TIA. INTERVENTIONS - CAD 02 sats. Activity management. Medications. VS. - Hypertension PATIENT COULD BE AT RISK FOR COMPLICATIONS FROM ADVERSE MEDICAL CONDITIONS DUE TO HIS/HER COMORBIDITI ES AND THE RIGORS OF THE INTENSIVE REHABILLITATION PROGRAM. METHODS OR INTERVENTIONS TO AVOID COMPLIC ATIONS INCLUDE: - Deep Vein Thrombosis (DVT) Prophylaxis therapy for prevention . Sequential Compression Device (SCD). ARDEN Borjas Hose. - Bleeding Stroke patients assessed for lethargy or change in status. - Infection Clinical staff to assess and manage the signs and symptoms of infection including fever, redness, war mth, etc. - Urinary Tract Infection - Aspiration Clinical staff will assess and manage coughing, drooling, congestion. - Falls Patient will be evaluated for Fall Precautions and will be placed on Fall Precautions as indicated pe r protocol. - Skin Breakdown Nursing will assess skin daily using assessment tool and will place on Skin Breakdown Precautions as indicated per protocol. - Pain Clinical staff may employ non-medication methods such as massage, distraction, decrease stimulus, etc . as needed. Clinical staff will assess patient's pain level every shift per protocol to assess and e nsure pain management effectiveness. Medications will be given and the pain level re-assessed. PRELIMINARY PLAN OF CARE: - Physical Therapy Patient needs Physical Therapy for a daily minimum of 1.5 hours at least 5 out of 7 days, to improve: Mobility, Strengthening, Transfers, Stretching, ROM, Endurance, Ability to manage stairs, Gait, and Balance. - Speech Therapy Patient needs Speech Therapy for a daily minimum of 0.5 hours at least 5 out of 7 days, to improve: S wallowing, Cognition, Language Skills, and Compensatory Strategies. - Rehabilitation Nursing Patient requires 24x7 Rehabilitation Nursing for: Pain Issues, Identifying and preventing risk factor s, Monitoring and reporting current medical conditions, Assisting with ambulation and transfer, Marlen ting with all ADL-s, Teaching patients about disease process and medications, Family teaching, Provid ing safe environment, Bowel and Bladder Issues, Skin Integrity, and Medication Management. Patient needs Expanded Function Dental Assistant and/or Case Management for: Discharge Planning, Arranging Home Equipmen t or Services, and Family Interventions. - Dietary and Nutrition Services Patient needs Dietary and Nutrition Services for: Adequate Nutrition, Nutritional Supplements, and Nu tritional Education. - Occupational Therapy Patient needs Occupational Therapy for a daily minimum of 1.5 hours at least 5 out of 7 days, to impr ove Activities of Daily Living, including: Eating, Grooming, Bathing, Dressing, Toileting, Toilet Tra nsfers, Community Reintegration, Higher functional activities, Adaptive Equipment, Splinting, Househo ld Tasks, and Other activities as determined. POTENTIAL FUNCTIONAL GOALS FOR PATIENT TO ACHIEVE BY DISCHARGE: - Safety Precaution Patient will remain free from falls or injury at time of discharge. - Bed Mobility Patient will perform bed mobility at 4-Gale level of assistance. - Transfers Patient will complete transfers from bed to chair at 4-Gale level of assistance. - Mobility Patient will ambulate 150 ft with 4-Gale level of assistance with RW. PATIENT REHAB POTENTIAL Expected level of measurable improvement will be of a practical value to patient's functional capacit y or adaptations to impairments Has a viable Discharge Plan Medically appropriate; condition is sufficiently stable to participate in intensive rehab program Patient is able and expected to receive 3 hours of individualized therapy daily on at least 5 of ever y 7 days Patient's prognosis for significant practical improvement within a reasonable period of time appears Good DISCHARGE PLAN: - Estimated Length of Stay (days) 17. - Consensus on plan Discharge plan has been discussed with primary caregiver. Patient/Family is in agreement with the cami n. Primary caregiver is in agreement with the plan. - Patient/Family Goals Return home with assistance. - Planned Living Setting Upon Discharge Home, to live with Family/Relatives. Transitional Living. CONCLUSION ON REHABILITATION NECESSITY: I have evaluated patient's pre-admission functional status and, comparing it to the patient's post-ad mission functional status now, I conclude that the pre-admission assessment was accurate. Patient's c ondition on admission supports the medical necessity of admission to [facility]. It is safe to proceed with patient's therapy program. SIGNATURE PANEL: (CDT)
--- NOTE | 2018-09-05 00:39 | FAST ---
SHIFT START DATE/TIME: 09/04/2018 19:00 (CDT) SHIFT END DATE/TIME: 09/05/2018 07:00 (CDT) NAME JOSE ALEJANDRO ROSS DATE OF : 1930 DATE OF ADMISSION: 09/03/2018 17:45 (CDT) PHONE: AGE: 88 N# [id number] GENDER: Male ENCOUNTER PHYSICIAN: Dr. Deandre Solis M.D. ADMISSION DIAGNOSIS: - Stroke 01 - Right Body (Left Brain) (01.2) ACUTE LEFT PARIETAL LOBE INFARCTION. EATING: Activity did not occur on this shift EATING - SCORE: 0-UNK GROOMING: Wash, rinse, and dry hands GROOMING - STEP 1: Does the patient require the assistance of a person or device, or need extra time when grooming? Yes. GROOMING - STEP 2: Does the patient require the assistance of a helper? Yes. GROOMING - STEP 3: How much assistance does the patient require from the helper? Only prior equipment preparation/set up from the helper GROOMING - SCORE: 5-SUP BATHING: Activity did not occur on this shift BATHING - SCORE: 0-UNK DRESSING - UPPER BODY: Patient is not dressing in public clothing ARTICLES SCORE Total number of steps: 0 DRESSING - UPPER BODY - SCORE: 0-UNK DRESSING - LOWER BODY: Patient is not dressing in public clothing ARTICLES SCORE Total number of steps: 0 DRESSING - LOWER BODY - SCORE: 0-UNK TOILETING: TOILETING - STEP 1: Does the patient require the assistance of a person or device, or need extra time with toileting? Yes . TOILETING - STEP 2: Does the patient require the assistance of a helper? Yes. TOILETING - STEP 3: How much assistance does the patient require from the helper? Hands-on assistance from the helper TOILETING - STEP 4: Of the 3 tasks: 1) Adjusting clothing prior to use, 2) Cleansing of perineal area, 3) Adjusting clot dileep after use; How many tasks does the patient perform WITHOUT assistance of the helper? Three tasks with steadying assistance from the helper TOILETING - SCORE: 4-MIN BLADDER MANAGEMENT: BLADDER MANAGEMENT - STEP 1: Does the patient control the bladder completely and intentionally without equipment or devices or med ications, and is always continent? No. BLADDER MANAGEMENT - STEP 2: Does the patient require the assistance of a helper? Yes. BLADDER MANAGEMENT - STEP 3: How much assistance does the patient require from the helper? Only supervision, stand-by, cuing, or c oaxing BLADDER MANAGEMENT - SCORE: 5-SUP BOWEL MANAGEMENT: BOWEL MANAGEMENT - STEP 1: Does the patient control bowels completely and intentionally without equipment devices or medications AND is always continent? No. BOWEL MANAGEMENT - STEP 2: Does the patient require the assistance of a helper? No, patient requires medication for control such as stool softeners, suppositories, laxatives, enemas, or OTC medications BOWEL MANAGEMENT - SCORE: 6-CATHY TRANSFERS: BED, CHAIR, WHEELCHAIR: TRANSFERS: BED, CHAIR, WHEELCHAIR - STEP 1: Does the patient require assistance of a person or device, or need extra time with bed, chair, or whe elchair transfers? Yes. TRANSFERS: BED, CHAIR, WHEELCHAIR - STEP 2: Does the patient require the assistance of a helper? Yes. TRANSFERS: BED, CHAIR, WHEELCHAIR - STEP 3: How much assistance does the patient require from the helper? Steadying/guiding assistance TRANSFERS: BED, CHAIR, WHEELCHAIR - SCORE: 4-MIN TRANSFERS: TOILET: TRANSFERS: TOILET - STEP 1: Does the patient require the assistance of a person or device, or need extra time with toilet transfe rs? Yes. TRANSFERS: TOILET - STEP 2: Does the patient require the assistance of a helper? Yes. TRANSFERS: TOILET - STEP 3: How much assistance does the patient require from the helper? Only supervision, cuing, coaxing, OR he lp to set out transfer equipment or to lock brakes and/or lift foot rests TRANSFERS: TOILET - SCORE: 5-SUP TRANSFERS: SHOWER: Activity did not occur on this shift TRANSFERS: SHOWER - SCORE: 0-UNK TRANSFERS: TUB: Activity did not occur on this shift TRANSFERS: TUB - SCORE: 0-UNK LOCOMOTION: WALK: Activity did not occur on this shift LOCOMOTION: WALK - SCORE: 0-UNK LOCOMOTION: WHEELCHAIR: Activity did not occur on this shift LOCOMOTION: WHEELCHAIR - SCORE: 0-UNK COMPREHENSION: COMPREHENSION: TYPE: Both COMPREHENSION - STEP 1: Does the patient require help from a person or device, or need extra time to understand complex and a bstract ideas (such as current events, finances, discharge planning, medical issues, relationships, e tc)? Yes. COMPREHENSION - STEP 2: Does the patient require help to understand questions or statements about basic needs or ideas (such as hunger, thirst, sleep, safety, daily schedule, room location, or discomfort) half or more of the t ezio? No. COMPREHENSION - STEP 3: How often does the patient need help to understand directions and conversation about basic needs? 10% - 24% of the time COMPREHENSION - SCORE: 4-MIN EXPRESSION EXPRESSION: TYPE: Both EXPRESSION - STEP 1: Does the patient require help from a person or device, or need extra time expressing complex and abst ract ideas (such as current events, finances, discharge planning, medical issues, relationships, etc) ? Yes. EXPRESSION - STEP 2: Does the patient require help to express basic necessities or ideas (such as hunger, thirst, sleep, s afety, daily schedule, room location, or discomfort) half or more of the time? Yes. EXPRESSION - STEP 3: Is the patient basically unable to express or does s/he express inappropriately or inconsistently key pite prompting? No. EXPRESSION - SCORE: 2-MAX SOCIAL INTERACTION: SOCIAL INTERACTION - STEP 1: Does the patient require a helper to interact with others in social and therapeutic situations? Yes. SOCIAL INTERACTION - STEP 2: Does the patient interact appropriately half or more of the time? Yes. SOCIAL INTERACTION - STEP 3: How often does the patient need help to interact appropriately? 10-24% of the time SOCIAL INTERACTION - SCORE: 4-MIN PROBLEM SOLVING: PROBLEM SOLVING - STEP 1: Does the patient need help from a person or device, or need extra time to solve complex problems such as managing a checking account or confronting interpersonal problems? Yes. PROBLEM SOLVING - STEP 2: Does the patient solve basic routine problems half or more of the time? Yes. PROBLEM SOLVING - STEP 3: How often does the patient need help to solve basic routine problems? 10%-24% of the time PROBLEM SOLVING - SCORE: 4-MIN MEMORY: MEMORY - STEP 1: Does the patient need help from a person or device, or need extra time to remember frequently encount ered people, daily routines, and executing requests? Yes. MEMORY - STEP 2: How often does the patient need help to remember frequently encountered people, daily routines, and e xecuting requests? 25% - 49% of the time MEMORY - SCORE: 3-MOD SIGNATURE PANEL: The following modified sections: Eating - Score, Grooming - Score, Dressing - Upper Body - Score, Kyrie ssing - Lower Body - Score, Toileting - Score, Bladder Management - Score, Bowel Management - Score, Transfers: Bed, Chair, Wheelchair - Score, Transfers: Toilet - Score, Transfers: Shower - Score, [place] sfers: Tub - Score, Locomotion: Walk - Score, Locomotion: Wheelchair - Score, Comprehension - Score, Expression - Score, Social Interaction - Score, Problem Solving - Score, Memory - Score were [electro nically] signed by Carmen Caal CNA on ThuSep 05 2018 00:38:28 GMT-0500 (Central Daylight Time)
--- NOTE | 2018-09-05 04:13 | CON ---
Date of Consultation: 09/04/2018 Chief Complaint: End-stage renal disease, on dialysis. History Of Present Illness: The patient has multiple medical problems including history of end-stage renal disease. He developed CVA and is admitted to rehab for PT. The patient on arrival to the hospital was found to have congestive heart failure, atrial fibrillation, and chest x-ray showed pulmonary edema. He underwent dialysis today. He is to have dialysis for metabolic clearance and to obtain ultrafiltration. Review of Systems: Constitutional: The patient denies fever, chills. Eyes: Denies vision changes. Ears, Nose, Mouth, and Throat: Denies sore throat, earache. Respiratory: Denies PND, orthopnea. Cardiovascular: Denies chest pain, syncope. Has shortness of breath with activities. All other systems reviewed and all are negative. 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 Family History: Diabetes mellitus, coronary artery disease, hypertension. Social History: Denies tobacco, alcohol, or illicit drugs. Physical Examination: Vital Signs: Blood pressure is 140/60, heart rate 63, temperature 96.6, respiratory rate 16. Eyes: Anicteric sclerae, EOMI. Ears, Nose, Mouth, and Throat: Oral mucosa moist. No pallor. Neck: Supple. No JVD Lungs: Few crackles at bases. Heart: S1, S2. No pericardial friction rub. Abdomen: Soft, benign. No rebound Extremities: Slight edema in both ankles. Skin: no cellulitis, no oozing. Neurologic: CN intact, no tremor Laboratory Data: WBC 6.4, hemoglobin 10.5, platelet count 214,000. Sodium 138 , potassium 3.3, BUN 35, creatinine 3.9, albumin 2.4. Impression And Plan: 1. End-stage renal disease. Dialysis will be done to provide metabolic clearance and ultrafiltration. Continue p.o. fluid restriction, low-sodium diet. 2. Renal osteodystrophy. Monitor phosphorus level. Adjust binders. 3. Hypoalbuminemia. Increase p.o. protein intake. 4. Anemia in chronic kidney disease. Hemoglobin level improved from 10.5 to 12.1. Monitor hemoglobin level. GUNJAN on hold. 5. Deconditioning, history of stroke. Physical therapy program will be started and evaluation is pending. JEFF/MORENA Voice ID: [id number] Report ID: [id number] MTDD
[2018-09-05] MEDS: PANTOPRAZOLE 40MG TABLET PO SCH (07:52)
[2018-09-05] MEDS: ASPIRIN EC 81 MG TAB PO SCH (08:52)
[2018-09-05] MEDS: FOLIC ACID 1 MG TABLET PO SCH (08:53)
[2018-09-05] MEDS: CARVEDILOL 6.25 MG TAB PO SCH ×2 (08:53→20:12)
[2018-09-05] MEDS: MULTIVITAMINS,THERAPEUT 1 TAB PO SCH (08:54)
[2018-09-05] MEDS: LISINOPRIL 10 MG TAB PO SCH (08:54)
[2018-09-05] MEDS: MAGNESIUM OXIDE 400 MG TAB PO SCH (08:54)
[2018-09-05] MEDS: FERROUS SULFATE 325 MG TAB PO SCH (08:55)
[2018-09-05] MEDS: OCUVITE (VIT A,C & E/LUTEIN/MINERAL) TABLET PO SCH (13:28)
--- NOTE | 2018-09-05 13:35 | FAST ---
SHIFT START DATE/TIME: 09/05/2018 07:00 (CDT) SHIFT END DATE/TIME: 09/05/2018 19:00 (CDT) NAME JOSE ALEJANDRO ROSS DATE OF : 1930 DATE OF ADMISSION: 09/03/2018 17:45 (CDT) PHONE: AGE: 88 N# [id number] GENDER: Male ENCOUNTER PHYSICIAN: Dr. Deandre Solis M.D. ADMISSION DIAGNOSIS: - Stroke 01 - Right Body (Left Brain) (01.2) ACUTE LEFT PARIETAL LOBE INFARCTION. EATING: EATING - STEP 1: Does the patient require the assistance of a person or device, or need extra time when eating? Yes. EATING - STEP 2: Does the patient require the assistance of a helper? Yes. EATING - STEP 3: Does the patient perform half or more of the eating tasks? Yes. EATING - STEP 4: Does the patient need only supervision, cuing, coaxing OR help to apply an orthosis OR help to cut fo od, open containers, pour liquids, or butter bread? Yes. EATING - SCORE: 5-SUP GROOMING: Activity did not occur on this shift GROOMING - SCORE: 0-UNK BATHING: Activity did not occur on this shift BATHING - SCORE: 0-UNK DRESSING - UPPER BODY: Activity did not occur on this shift ARTICLES SCORE Total number of steps: 0 DRESSING - UPPER BODY - SCORE: 0-UNK DRESSING - LOWER BODY: Activity did not occur on this shift ARTICLES SCORE Total number of steps: 0 DRESSING - LOWER BODY - SCORE: 0-UNK TOILETING: TOILETING - STEP 1: Does the patient require the assistance of a person or device, or need extra time with toileting? Yes . TOILETING - STEP 2: Does the patient require the assistance of a helper? Yes. TOILETING - STEP 3: How much assistance does the patient require from the helper? Hands-on assistance from the helper TOILETING - STEP 4: Of the 3 tasks: 1) Adjusting clothing prior to use, 2) Cleansing of perineal area, 3) Adjusting clot dileep after use; How many tasks does the patient perform WITHOUT assistance of the helper? Two tasks TOILETING - SCORE: 3-MOD BLADDER MANAGEMENT: BLADDER MANAGEMENT - STEP 1: Does the patient control the bladder completely and intentionally without equipment or devices or med ications, and is always continent? No. BLADDER MANAGEMENT - STEP 2: Does the patient require the assistance of a helper? No, patient only requires extra time BLADDER MANAGEMENT - SCORE: 6-CATHY BLADDER MANAGEMENT - FREQUENCY OF ACCIDENTS: BLADDER MANAGEMENT(FA) - STEP 1: How many accidents has the patient had during the current shift? 0 BOWEL MANAGEMENT: Activity did not occur on this shift BOWEL MANAGEMENT - SCORE: 7-IND BOWEL MANAGEMENT - FREQUENCY OF ACCIDENTS: BOWEL MANAGEMENT(FA) - STEP 1: How many accidents has the patient had during the current shift? 0 TRANSFERS: BED, CHAIR, WHEELCHAIR: TRANSFERS: BED, CHAIR, WHEELCHAIR - STEP 1: Does the patient require assistance of a person or device, or need extra time with bed, chair, or whe elchair transfers? Yes. TRANSFERS: BED, CHAIR, WHEELCHAIR - STEP 2: Does the patient require the assistance of a helper? Yes. TRANSFERS: BED, CHAIR, WHEELCHAIR - STEP 3: How much assistance does the patient require from the helper? Steadying/guiding assistance TRANSFERS: BED, CHAIR, WHEELCHAIR - SCORE: 4-MIN TRANSFERS: TOILET: TRANSFERS: TOILET - STEP 1: Does the patient require the assistance of a person or device, or need extra time with toilet transfe rs? Yes. TRANSFERS: TOILET - STEP 2: Does the patient require the assistance of a helper? Yes. TRANSFERS: TOILET - STEP 3: How much assistance does the patient require from the helper? Patient performs half or more of the tr ansferring tasks TRANSFERS: TOILET - STEP 4: Does the patient need only incidental help such as contact guard or steadying during toilet transfer? Yes. TRANSFERS: TOILET - SCORE: 4-MIN TRANSFERS: SHOWER: Activity did not occur on this shift TRANSFERS: SHOWER - SCORE: 0-UNK TRANSFERS: TUB: Activity did not occur on this shift TRANSFERS: TUB - SCORE: 0-UNK LOCOMOTION: WALK: Activity did not occur on this shift LOCOMOTION: WALK - SCORE: 0-UNK LOCOMOTION: WHEELCHAIR: Activity did not occur on this shift LOCOMOTION: WHEELCHAIR - SCORE: 0-UNK COMPREHENSION: COMPREHENSION: TYPE: Both COMPREHENSION - STEP 1: Does the patient require help from a person or device, or need extra time to understand complex and a bstract ideas (such as current events, finances, discharge planning, medical issues, relationships, e tc)? Yes. COMPREHENSION - STEP 2: Does the patient require help to understand questions or statements about basic needs or ideas (such as hunger, thirst, sleep, safety, daily schedule, room location, or discomfort) half or more of the t ezio? No. COMPREHENSION - STEP 3: How often does the patient need help to understand directions and conversation about basic needs? Les s than 10% of the time COMPREHENSION - SCORE: 5-SUP EXPRESSION EXPRESSION: TYPE: Both EXPRESSION - STEP 1: Does the patient require help from a person or device, or need extra time expressing complex and abst ract ideas (such as current events, finances, discharge planning, medical issues, relationships, etc) ? Yes. EXPRESSION - STEP 2: Does the patient require help to express basic necessities or ideas (such as hunger, thirst, sleep, s afety, daily schedule, room location, or discomfort) half or more of the time? No. EXPRESSION - STEP 3: How often does the patient need help to express directions and conversation about basic needs? 10-24% of the time EXPRESSION - SCORE: 4-MIN SOCIAL INTERACTION: SOCIAL INTERACTION - STEP 1: Does the patient require a helper to interact with others in social and therapeutic situations? No. SOCIAL INTERACTION - STEP 2: Does the patient need extra time in social situations, OR does s/he interact with staff, other patien ts, and family members ONLY in structured environments, OR does s/he require medication for social in teraction? Yes, patient needs extra time SOCIAL INTERACTION - SCORE: 6-CATHY PROBLEM SOLVING: PROBLEM SOLVING - STEP 1: Does the patient need help from a person or device, or need extra time to solve complex problems such as managing a checking account or confronting interpersonal problems? Yes. PROBLEM SOLVING - STEP 2: Does the patient solve basic routine problems half or more of the time? Yes. PROBLEM SOLVING - STEP 3: How often does the patient need help to solve basic routine problems? Less than 10% of the time PROBLEM SOLVING - SCORE: 5-SUP MEMORY: MEMORY - STEP 1: Does the patient need help from a person or device, or need extra time to remember frequently encount ered people, daily routines, and executing requests? Yes. MEMORY - STEP 2: How often does the patient need help to remember frequently encountered people, daily routines, and e xecuting requests? 10% - 24% of the time MEMORY - SCORE: 4-MIN SIGNATURE PANEL: The following modified sections: Eating - Score, Grooming - Score, Bathing - Score, Dressing - Upper Body - Score, Dressing - Lower Body - Score, Toileting - Score, Bladder Management - Score, Bowel Man agement - Score, Transfers: Bed, Chair, Wheelchair - Score, Transfers: Toilet - Score, Transfers: Rupa wer - Score, Transfers: Tub - Score, Locomotion: Walk - Score, Locomotion: Wheelchair - Score, Compre hension - Score, Expression - Score, Social Interaction - Score, Problem Solving - Score, Memory - Sc ore were [electronically] signed by Su Pop C.N.A. on ThuSep 05 2018 13:35:20 T-0500 (Centra l Daylight Time)
[2018-09-05] MEDS ORDERED: ONDANSETRON 4 MG (ODT) TAB PO ONE (13:40)
[2018-09-05] MEDS ORDERED: LACTULOSE 20 GM/30 ML UCUP PO ONE (13:40)
[2018-09-05] MEDS: ATORVASTATIN 20 MG TAB PO SCH (20:12)
[2018-09-05] MEDS: DOCUSATE NA/SENNA CONC 1 TAB PO SCH (20:13)
--- NOTE | 2018-09-06 00:33 | FAST ---
SHIFT START DATE/TIME: 09/05/2018 19:00 (CDT) SHIFT END DATE/TIME: 09/06/2018 07:00 (CDT) NAME JOSE ALEJANDRO ROSS DATE OF : 1930 DATE OF ADMISSION: 09/03/2018 17:45 (CDT) PHONE: AGE: 88 N# [id number] GENDER: Male ENCOUNTER PHYSICIAN: Dr. Deandre Solis M.D. ADMISSION DIAGNOSIS: - Stroke 01 - Right Body (Left Brain) (01.2) ACUTE LEFT PARIETAL LOBE INFARCTION. EATING: Activity did not occur on this shift EATING - SCORE: 0-UNK GROOMING: Oral care Wash, rinse, and dry hands GROOMING - STEP 1: Does the patient require the assistance of a person or device, or need extra time when grooming? Yes. GROOMING - STEP 2: Does the patient require the assistance of a helper? Yes. GROOMING - STEP 3: How much assistance does the patient require from the helper? Only prior equipment preparation/set up from the helper GROOMING - SCORE: 5-SUP BATHING: Activity did not occur on this shift BATHING - SCORE: 0-UNK DRESSING - UPPER BODY: Patient is not dressing in public clothing ARTICLES SCORE Total number of steps: 0 DRESSING - UPPER BODY - SCORE: 0-UNK DRESSING - LOWER BODY: Patient is not dressing in public clothing ARTICLES SCORE Total number of steps: 0 DRESSING - LOWER BODY - SCORE: 0-UNK TOILETING: TOILETING - STEP 1: Does the patient require the assistance of a person or device, or need extra time with toileting? Yes . TOILETING - STEP 2: Does the patient require the assistance of a helper? Yes. TOILETING - STEP 3: How much assistance does the patient require from the helper? Hands-on assistance from the helper TOILETING - STEP 4: Of the 3 tasks: 1) Adjusting clothing prior to use, 2) Cleansing of perineal area, 3) Adjusting clot dileep after use; How many tasks does the patient perform WITHOUT assistance of the helper? Three tasks with steadying assistance from the helper TOILETING - SCORE: 4-MIN BLADDER MANAGEMENT: BLADDER MANAGEMENT - STEP 1: Does the patient control the bladder completely and intentionally without equipment or devices or med ications, and is always continent? No. BLADDER MANAGEMENT - STEP 2: Does the patient require the assistance of a helper? No, patient only requires extra time BLADDER MANAGEMENT - SCORE: 6-CATHY BOWEL MANAGEMENT: BOWEL MANAGEMENT - STEP 1: Does the patient control bowels completely and intentionally without equipment devices or medications AND is always continent? No. BOWEL MANAGEMENT - STEP 2: Does the patient require the assistance of a helper? No, patient requires medication for control such as stool softeners, suppositories, laxatives, enemas, or OTC medications BOWEL MANAGEMENT - SCORE: 6-CATHY TRANSFERS: BED, CHAIR, WHEELCHAIR: TRANSFERS: BED, CHAIR, WHEELCHAIR - STEP 1: Does the patient require assistance of a person or device, or need extra time with bed, chair, or whe elchair transfers? Yes. TRANSFERS: BED, CHAIR, WHEELCHAIR - STEP 2: Does the patient require the assistance of a helper? Yes. TRANSFERS: BED, CHAIR, WHEELCHAIR - STEP 3: How much assistance does the patient require from the helper? Steadying/guiding assistance TRANSFERS: BED, CHAIR, WHEELCHAIR - SCORE: 4-MIN TRANSFERS: TOILET: TRANSFERS: TOILET - STEP 1: Does the patient require the assistance of a person or device, or need extra time with toilet transfe rs? Yes. TRANSFERS: TOILET - STEP 2: Does the patient require the assistance of a helper? Yes. TRANSFERS: TOILET - STEP 3: How much assistance does the patient require from the helper? Only supervision, cuing, coaxing, OR he lp to set out transfer equipment or to lock brakes and/or lift foot rests TRANSFERS: TOILET - SCORE: 5-SUP TRANSFERS: SHOWER: Activity did not occur on this shift TRANSFERS: SHOWER - SCORE: 0-UNK TRANSFERS: TUB: Activity did not occur on this shift TRANSFERS: TUB - SCORE: 0-UNK LOCOMOTION: WALK: Activity did not occur on this shift LOCOMOTION: WALK - SCORE: 0-UNK LOCOMOTION: WHEELCHAIR: Activity did not occur on this shift LOCOMOTION: WHEELCHAIR - SCORE: 0-UNK COMPREHENSION: COMPREHENSION: TYPE: Both COMPREHENSION - STEP 1: Does the patient require help from a person or device, or need extra time to understand complex and a bstract ideas (such as current events, finances, discharge planning, medical issues, relationships, e tc)? Yes. COMPREHENSION - STEP 2: Does the patient require help to understand questions or statements about basic needs or ideas (such as hunger, thirst, sleep, safety, daily schedule, room location, or discomfort) half or more of the t ezio? Yes. COMPREHENSION - STEP 3: Is the patient basically able to understand and respond appropriately and consistently? Yes. COMPREHENSION - SCORE: 2-MAX EXPRESSION EXPRESSION: TYPE: Both EXPRESSION - STEP 1: Does the patient require help from a person or device, or need extra time expressing complex and abst ract ideas (such as current events, finances, discharge planning, medical issues, relationships, etc) ? Yes. EXPRESSION - STEP 2: Does the patient require help to express basic necessities or ideas (such as hunger, thirst, sleep, s afety, daily schedule, room location, or discomfort) half or more of the time? Yes. EXPRESSION - STEP 3: Is the patient basically unable to express or does s/he express inappropriately or inconsistently key pite prompting? No. EXPRESSION - SCORE: 2-MAX SOCIAL INTERACTION: SOCIAL INTERACTION - STEP 1: Does the patient require a helper to interact with others in social and therapeutic situations? Yes. SOCIAL INTERACTION - STEP 2: Does the patient interact appropriately half or more of the time? Yes. SOCIAL INTERACTION - STEP 3: How often does the patient need help to interact appropriately? 10-24% of the time SOCIAL INTERACTION - SCORE: 4-MIN PROBLEM SOLVING: PROBLEM SOLVING - STEP 1: Does the patient need help from a person or device, or need extra time to solve complex problems such as managing a checking account or confronting interpersonal problems? Yes. PROBLEM SOLVING - STEP 2: Does the patient solve basic routine problems half or more of the time? Yes. PROBLEM SOLVING - STEP 3: How often does the patient need help to solve basic routine problems? 10%-24% of the time PROBLEM SOLVING - SCORE: 4-MIN MEMORY: MEMORY - STEP 1: Does the patient need help from a person or device, or need extra time to remember frequently encount ered people, daily routines, and executing requests? Yes. MEMORY - STEP 2: How often does the patient need help to remember frequently encountered people, daily routines, and e xecuting requests? 25% - 49% of the time MEMORY - SCORE: 3-MOD SIGNATURE PANEL: The following modified sections: Eating - Score, Grooming - Score, Dressing - Upper Body - Score, Kyrie ssing - Lower Body - Score, Toileting - Score, Bladder Management - Score, Bowel Management - Score, Transfers: Bed, Chair, Wheelchair - Score, Transfers: Toilet - Score, Transfers: Shower - Score, [place] sfers: Tub - Score, Locomotion: Walk - Score, Locomotion: Wheelchair - Score, Comprehension - Score, Expression - Score, Social Interaction - Score, Problem Solving - Score, Memory - Score were [electro nically] signed by Carmen Caal CNA on ThuSep 06 2018 00:32:37 GMT-0500 (Central Daylight Time)
--- NOTE | 2018-09-06 03:50 | PN ---
Date of Progress Note: 09/05/2018 Chief Complaint: End-stage renal disease; congestive heart failure, chronic. The patient is dialysis dependent. He is undergoing physical therapy rehab after he developed stroke. Today, he is complaining of constipation, episodes of nausea. Denies melena, hematemesis. Physical Examination: Lungs: Clear to auscultation bilaterally. Heart: S1, S2. Abdomen: Soft, benign. Extremities: No edema. Laboratory Data: Hemoglobin is 10.5, platelet count 214,000. Sodium 138, potassium 3.3, BUN 35, creatinine 3.9, albumin 2.4. Impression And Plan: 1. End-stage renal disease. Next dialysis tomorrow. 2. Renal osteodystrophy. Monitor calcium and phosphorus. 3. Anemia in chronic kidney disease. Hemoglobin level is maintained at target range. Continue to monitor and adjust GUNJAN. 4. Deconditioning. History of stroke. Continue physical therapy. 5. Constipation. The patient will have lactulose p.r.n. constipation. The patient will continue Zofran for antinausea medication. JEFF/MORENA Voice ID: [id number] Report ID: [id number] GREY
[2018-09-06 05:26] VITALS: BMI 24.0
[2018-09-06] MEDS: PANTOPRAZOLE 40MG TABLET PO SCH (07:25)
[2018-09-06] MEDS: HEPARIN 5000 UNIT/ML 1 ML VIAL SQ SCH (07:48)
[2018-09-06] MEDS: ASPIRIN EC 81 MG TAB PO SCH (08:16)
[2018-09-06] MEDS: FERROUS SULFATE 325 MG TAB PO SCH (08:16)
[2018-09-06] MEDS: LISINOPRIL 10 MG TAB PO SCH (08:16)
[2018-09-06] MEDS: CARVEDILOL 6.25 MG TAB PO SCH ×2 (08:16→22:19)
[2018-09-06] MEDS: OCUVITE (VIT A,C & E/LUTEIN/MINERAL) TABLET PO SCH (08:16)
[2018-09-06] MEDS: MAGNESIUM OXIDE 400 MG TAB PO SCH (08:16)
[2018-09-06] MEDS: MULTIVITAMINS,THERAPEUT 1 TAB PO SCH (08:16)
[2018-09-06] MEDS: FOLIC ACID 1 MG TABLET PO SCH (08:17)
--- NOTE | 2018-09-06 12:27 | FAST ---
ENCOUNTER DATE AND TIME: 09/06/2018 08:00 (CDT) NAME JOSE ALEJANDRO ROSS DATE OF : 1930 DATE OF ADMISSION: 09/03/2018 17:45 (CDT) PHONE: AGE: 88 N# [id number] GENDER: Male ENCOUNTER PHYSICIAN: Dr. Deandre Solis M.D. ADMISSION DIAGNOSIS: - Stroke 01 - Right Body (Left Brain) (01.2) ACUTE LEFT PARIETAL LOBE INFARCTION. EATING: Activity did not occur on this shift EATING - SCORE: 0-UNK GROOMING: Activity did not occur on this shift GROOMING - SCORE: 0-UNK BATHING: Activity did not occur on this shift BATHING - SCORE: 0-UNK DRESSING - UPPER BODY: Activity did not occur on this shift Patient is not dressing in public clothing ARTICLES SCORE Total number of steps: 0 DRESSING - UPPER BODY - SCORE: 0-UNK DRESSING - LOWER BODY: Activity did not occur on this shift Patient is not dressing in public clothing ARTICLES SCORE Total number of steps: 0 DRESSING - LOWER BODY - SCORE: 0-UNK TOILETING: Activity did not occur on this shift TOILETING - SCORE: 0-UNK BLADDER MANAGEMENT: Activity did not occur on this shift BLADDER MANAGEMENT - SCORE: 7-IND BOWEL MANAGEMENT: Activity did not occur on this shift BOWEL MANAGEMENT - SCORE: 7-IND TRANSFERS: BED, CHAIR, WHEELCHAIR: TRANSFERS: BED, CHAIR, WHEELCHAIR - STEP 1: Does the patient require assistance of a person or device, or need extra time with bed, chair, or whe elchair transfers? Yes. TRANSFERS: BED, CHAIR, WHEELCHAIR - STEP 2: Does the patient require the assistance of a helper? Yes. TRANSFERS: BED, CHAIR, WHEELCHAIR - STEP 3: How much assistance does the patient require from the helper? Lifting of the patient TRANSFERS: BED, CHAIR, WHEELCHAIR - STEP 4: Does the helper lift the patient ONLY up? ONLY down? Up AND Down? ONLY up. TRANSFERS: BED, CHAIR, WHEELCHAIR - SCORE: 3-MOD TRANSFERS: TOILET: Activity did not occur on this shift TRANSFERS: TOILET - SCORE: 0-UNK TRANSFERS: SHOWER: Activity did not occur on this shift TRANSFERS: SHOWER - SCORE: 0-UNK TRANSFERS: TUB: Activity did not occur on this shift TRANSFERS: TUB - SCORE: 0-UNK LOCOMOTION: WALK: Patient walks less than 50 feet LOCOMOTION: WALK - SCORE: 1-DEP LOCOMOTION: WHEELCHAIR: LOCOMOTION: WHEELCHAIR - STEP 1: Does the patient need help to go 150 feet in a wheelchair? Yes. LOCOMOTION: WHEELCHAIR - STEP 2: How much assistance does the patient need from the helper? Only incidental help such as around corner s or over thresholds LOCOMOTION: WHEELCHAIR - SCORE: 4-MIN LOCOMOTION: STAIRS: Activity did not occur on this shift LOCOMOTION: STAIRS - SCORE: 0-UNK COMPREHENSION: COMPREHENSION - SCORE: 0-UNK EXPRESSION EXPRESSION - SCORE: 0-UNK SOCIAL INTERACTION: SOCIAL INTERACTION - SCORE: 0-UNK PROBLEM SOLVING: PROBLEM SOLVING - SCORE: 0-UNK MEMORY: MEMORY - SCORE: 0-UNK SIGNATURE PANEL: The following modified sections: Transfers: Bed, Chair, Wheelchair - Score, Transfers: Toilet - Score , Locomotion: Walk - Score, Locomotion: Wheelchair - Score, Locomotion: Stairs - Score were [electron genesis] signed by Shorty Fernandez PT on ThuSep 06 2018 12:27:02 T-0500 (Central Daylight Time)
--- NOTE | 2018-09-06 14:39 | FAST ---
ENCOUNTER DATE AND TIME: 09/04/2018 08:00 (CDT) NAME JOSE ALEJANDRO ROSS DATE OF : 1930 DATE OF ADMISSION: 09/03/2018 17:45 (CDT) PHONE: AGE: 88 N# [id number] GENDER: Male ENCOUNTER PHYSICIAN: Dr. Deandre Solis M.D. ADMISSION DIAGNOSIS: - Stroke 01 - Right Body (Left Brain) (01.2) ACUTE LEFT PARIETAL LOBE INFARCTION. EATING: EATING - STEP 1: Does the patient require the assistance of a person or device, or need extra time when eating? No. EATING - SCORE: 7-IND GROOMING: Comb/brush hair Wash, rinse, and dry face Wash, rinse, and dry hands GROOMING - STEP 1: Does the patient require the assistance of a person or device, or need extra time when grooming? Yes. GROOMING - STEP 2: Does the patient require the assistance of a helper? Yes. GROOMING - STEP 3: How much assistance does the patient require from the helper? Cuing, coaxing, instructions, or encour agement for completion of grooming GROOMING - SCORE: 5-SUP BATHING: Abdomen Buttocks Chest Left arm Left lower leg and foot Left upper leg Perineal area Right arm Right lower leg and foot Right upper leg BATHING - STEP 1: Does the patient require the assistance of a person or device, or need extra time when bathing? Yes. BATHING - STEP 2: Does the patient require the assistance of a helper? Yes. BATHING - STEP 3: How much assistance does the patient require from the helper? Only incidental help such as placement of a wash cloth in his/her hand a few times as s/he bathes OR help to bathe just one or two areas of the body BATHING - SCORE: 4-MIN DRESSING - UPPER BODY: Patient is not dressing in public clothing ARTICLES SCORE Total number of steps: 0 DRESSING - UPPER BODY - SCORE: 0-UNK DRESSING - LOWER BODY: Elastic waist pants (three steps) Sock - Left foot (one step) Sock - Right foot (one step) Underwear (three steps) ARTICLES SCORE Total number of steps: 8 DRESSING - LOWER BODY - STEP 1: Does the patient require help from a person or device, or need extra time when dressing below the woody st? Yes. DRESSING - LOWER BODY - STEP 2: Does the patient require the assistance of a helper? Yes. DRESSING - LOWER BODY - STEP 3: Does the helper touch the patient while dressing? Yes. DRESSING - LOWER BODY - STEP 4: How many of the total steps does the patient complete on his/her own? 2 DRESSING - LOWER BODY - STEP 5: Does patient require total assistance for dressing below the waist such as the helper holding clothin g and performing basically all the activities? No. DRESSING - LOWER BODY - SCORE: 2-MAX TOILETING: Activity did not occur on this shift TOILETING - SCORE: 0-UNK BLADDER MANAGEMENT: Activity did not occur on this shift BLADDER MANAGEMENT - SCORE: 7-IND BOWEL MANAGEMENT: Activity did not occur on this shift BOWEL MANAGEMENT - SCORE: 7-IND TRANSFERS: BED, CHAIR, WHEELCHAIR: Activity did not occur on this shift TRANSFERS: BED, CHAIR, WHEELCHAIR - SCORE: 0-UNK TRANSFERS: TOILET: Activity did not occur on this shift TRANSFERS: TOILET - SCORE: 0-UNK TRANSFERS: SHOWER: TRANSFERS: SHOWER - STEP 1: Does the patient require the assistance of a person or device, or need extra time with shower transfe rs? Yes. TRANSFERS: SHOWER - STEP 2: Does the patient require the assistance of a helper? Yes. TRANSFERS: SHOWER - STEP 3: How much assistance does the patient require from the helper? Only incidental help such as contact gu arding or steadying during shower transfers, or help to lift one leg into the shower TRANSFERS: SHOWER - SCORE: 4-MIN TRANSFERS: TUB: Activity did not occur on this shift TRANSFERS: TUB - SCORE: 0-UNK LOCOMOTION: WALK: Activity did not occur on this shift LOCOMOTION: WALK - SCORE: 0-UNK LOCOMOTION: WHEELCHAIR: Activity did not occur on this shift LOCOMOTION: WHEELCHAIR - SCORE: 0-UNK LOCOMOTION: STAIRS: Activity did not occur on this shift LOCOMOTION: STAIRS - SCORE: 0-UNK COMPREHENSION: COMPREHENSION: TYPE: Both COMPREHENSION - STEP 1: Does the patient require help from a person or device, or need extra time to understand complex and a bstract ideas (such as current events, finances, discharge planning, medical issues, relationships, e tc)? Yes. COMPREHENSION - STEP 2: Does the patient require help to understand questions or statements about basic needs or ideas (such as hunger, thirst, sleep, safety, daily schedule, room location, or discomfort) half or more of the t ezio? No. COMPREHENSION - STEP 3: How often does the patient need help to understand directions and conversation about basic needs? Les s than 10% of the time COMPREHENSION - SCORE: 5-SUP EXPRESSION EXPRESSION: TYPE: Both EXPRESSION - STEP 1: Does the patient require help from a person or device, or need extra time expressing complex and abst ract ideas (such as current events, finances, discharge planning, medical issues, relationships, etc) ? Yes. EXPRESSION - STEP 2: Does the patient require help to express basic necessities or ideas (such as hunger, thirst, sleep, s afety, daily schedule, room location, or discomfort) half or more of the time? Yes. EXPRESSION - STEP 3: Is the patient basically unable to express or does s/he express inappropriately or inconsistently key pite prompting? No. EXPRESSION - SCORE: 2-MAX SOCIAL INTERACTION: SOCIAL INTERACTION - STEP 1: Does the patient require a helper to interact with others in social and therapeutic situations? Yes. SOCIAL INTERACTION - STEP 2: Does the patient interact appropriately half or more of the time? Yes. SOCIAL INTERACTION - STEP 3: How often does the patient need help to interact appropriately? Less than 10% of the time SOCIAL INTERACTION - SCORE: 5-SUP PROBLEM SOLVING: PROBLEM SOLVING - STEP 1: Does the patient need help from a person or device, or need extra time to solve complex problems such as managing a checking account or confronting interpersonal problems? Yes. PROBLEM SOLVING - STEP 2: Does the patient solve basic routine problems half or more of the time? Yes. PROBLEM SOLVING - STEP 3: How often does the patient need help to solve basic routine problems? 10%-24% of the time PROBLEM SOLVING - SCORE: 4-MIN MEMORY: MEMORY - STEP 1: Does the patient need help from a person or device, or need extra time to remember frequently encount ered people, daily routines, and executing requests? Yes. MEMORY - STEP 2: How often does the patient need help to remember frequently encountered people, daily routines, and e xecuting requests? 10% - 24% of the time MEMORY - SCORE: 4-MIN SIGNATURE PANEL: The following modified sections: Eating - Score, Grooming - Score, Bathing - Score, Dressing - Upper Body - Score, Dressing - Lower Body - Score, Toileting - Score, Transfers: Bed, Chair, Wheelchair - S core, Transfers: Toilet - Score, Transfers: Tub - Score, Transfers: Shower - Score, Comprehension - S core, Expression - Score, Social Interaction - Score, Problem Solving - Score, Memory - Score were [e lectronically] signed by Shayy Mendoza OT on ThuSep 06 2018 14:38:17 T-0500 (Central Daylight T ezio)
--- NOTE | 2018-09-06 15:42 | FAST ---
SHIFT START DATE/TIME: 09/06/2018 07:00 (CDT) SHIFT END DATE/TIME: 09/06/2018 19:00 (CDT) NAME JOSE ALEJANDRO ROSS DATE OF : 1930 DATE OF ADMISSION: 09/03/2018 17:45 (CDT) PHONE: AGE: 88 N# [id number] GENDER: Male ENCOUNTER PHYSICIAN: Dr. Deandre Solis M.D. ADMISSION DIAGNOSIS: - Stroke 01 - Right Body (Left Brain) (01.2) ACUTE LEFT PARIETAL LOBE INFARCTION. EATING: EATING - STEP 1: Does the patient require the assistance of a person or device, or need extra time when eating? Yes. EATING - STEP 2: Does the patient require the assistance of a helper? Yes. EATING - STEP 3: Does the patient perform half or more of the eating tasks? Yes. EATING - STEP 4: Does the patient need only supervision, cuing, coaxing OR help to apply an orthosis OR help to cut fo od, open containers, pour liquids, or butter bread? Yes. EATING - SCORE: 5-SUP GROOMING: Comb/brush hair Oral care Wash, rinse, and dry face Wash, rinse, and dry hands GROOMING - STEP 1: Does the patient require the assistance of a person or device, or need extra time when grooming? Yes. GROOMING - STEP 2: Does the patient require the assistance of a helper? No. The patient only requires an assistive devic e, OR takes more than reasonable time to groom, OR there is a concern for safety as the patient groom s GROOMING - SCORE: 6-CATHY BATHING: Activity did not occur on this shift BATHING - SCORE: 0-UNK DRESSING - UPPER BODY: Activity did not occur on this shift ARTICLES SCORE Total number of steps: 0 DRESSING - UPPER BODY - SCORE: 0-UNK DRESSING - LOWER BODY: Activity did not occur on this shift ARTICLES SCORE Total number of steps: 0 DRESSING - LOWER BODY - SCORE: 0-UNK TOILETING: TOILETING - STEP 1: Does the patient require the assistance of a person or device, or need extra time with toileting? Yes . TOILETING - STEP 2: Does the patient require the assistance of a helper? Yes. TOILETING - STEP 3: How much assistance does the patient require from the helper? Hands-on assistance from the helper TOILETING - STEP 4: Of the 3 tasks: 1) Adjusting clothing prior to use, 2) Cleansing of perineal area, 3) Adjusting clot dileep after use; How many tasks does the patient perform WITHOUT assistance of the helper? Three tasks with steadying assistance from the helper TOILETING - SCORE: 4-MIN BLADDER MANAGEMENT: BLADDER MANAGEMENT - STEP 1: Does the patient control the bladder completely and intentionally without equipment or devices or med ications, and is always continent? No. BLADDER MANAGEMENT - STEP 2: Does the patient require the assistance of a helper? No, patient requires and independently uses an a ssistive device, such as a urinal, bedpan, bedside commode, catheter, absorbent pad, or collecting de vice BLADDER MANAGEMENT - SCORE: 6-CATHY BOWEL MANAGEMENT: Activity did not occur on this shift BOWEL MANAGEMENT - SCORE: 7-IND TRANSFERS: BED, CHAIR, WHEELCHAIR: TRANSFERS: BED, CHAIR, WHEELCHAIR - STEP 1: Does the patient require assistance of a person or device, or need extra time with bed, chair, or whe elchair transfers? Yes. TRANSFERS: BED, CHAIR, WHEELCHAIR - STEP 2: Does the patient require the assistance of a helper? Yes. TRANSFERS: BED, CHAIR, WHEELCHAIR - STEP 3: How much assistance does the patient require from the helper? Steadying/guiding assistance TRANSFERS: BED, CHAIR, WHEELCHAIR - SCORE: 4-MIN TRANSFERS: TOILET: TRANSFERS: TOILET - STEP 1: Does the patient require the assistance of a person or device, or need extra time with toilet transfe rs? Yes. TRANSFERS: TOILET - STEP 2: Does the patient require the assistance of a helper? Yes. TRANSFERS: TOILET - STEP 3: How much assistance does the patient require from the helper? Patient performs half or more of the tr ansferring tasks TRANSFERS: TOILET - STEP 4: Does the patient need only incidental help such as contact guard or steadying during toilet transfer? No. Patient needs more than incidental help TRANSFERS: TOILET - SCORE: 3-MOD TRANSFERS: SHOWER: Activity did not occur on this shift TRANSFERS: SHOWER - SCORE: 0-UNK TRANSFERS: TUB: Activity did not occur on this shift TRANSFERS: TUB - SCORE: 0-UNK LOCOMOTION: WALK: Activity did not occur on this shift LOCOMOTION: WALK - SCORE: 0-UNK LOCOMOTION: WHEELCHAIR: Activity did not occur on this shift LOCOMOTION: WHEELCHAIR - SCORE: 0-UNK COMPREHENSION: COMPREHENSION: TYPE: Both COMPREHENSION - STEP 1: Does the patient require help from a person or device, or need extra time to understand complex and a bstract ideas (such as current events, finances, discharge planning, medical issues, relationships, e tc)? Yes. COMPREHENSION - STEP 2: Does the patient require help to understand questions or statements about basic needs or ideas (such as hunger, thirst, sleep, safety, daily schedule, room location, or discomfort) half or more of the t ezio? No. COMPREHENSION - STEP 3: How often does the patient need help to understand directions and conversation about basic needs? Les s than 10% of the time COMPREHENSION - SCORE: 5-SUP EXPRESSION EXPRESSION: TYPE: Both EXPRESSION - STEP 1: Does the patient require help from a person or device, or need extra time expressing complex and abst ract ideas (such as current events, finances, discharge planning, medical issues, relationships, etc) ? Yes. EXPRESSION - STEP 2: Does the patient require help to express basic necessities or ideas (such as hunger, thirst, sleep, s afety, daily schedule, room location, or discomfort) half or more of the time? No. EXPRESSION - STEP 3: How often does the patient need help to express directions and conversation about basic needs? 25-49% of the time EXPRESSION - SCORE: 3-MOD SOCIAL INTERACTION: SOCIAL INTERACTION - STEP 1: Does the patient require a helper to interact with others in social and therapeutic situations? Yes. SOCIAL INTERACTION - STEP 2: Does the patient interact appropriately half or more of the time? Yes. SOCIAL INTERACTION - STEP 3: How often does the patient need help to interact appropriately? 25-49% of the time SOCIAL INTERACTION - SCORE: 3-MOD PROBLEM SOLVING: PROBLEM SOLVING - STEP 1: Does the patient need help from a person or device, or need extra time to solve complex problems such as managing a checking account or confronting interpersonal problems? Yes. PROBLEM SOLVING - STEP 2: Does the patient solve basic routine problems half or more of the time? Yes. PROBLEM SOLVING - STEP 3: How often does the patient need help to solve basic routine problems? 25%-49% of the time PROBLEM SOLVING - SCORE: 3-MOD MEMORY: MEMORY - STEP 1: Does the patient need help from a person or device, or need extra time to remember frequently encount ered people, daily routines, and executing requests? Yes. MEMORY - STEP 2: How often does the patient need help to remember frequently encountered people, daily routines, and e xecuting requests? 25% - 49% of the time MEMORY - SCORE: 3-MOD SIGNATURE PANEL: The following modified sections: Eating - Score, Grooming - Score, Bathing - Score, Dressing - Upper Body - Score, Dressing - Lower Body - Score, Toileting - Score, Bladder Management - Score, Bowel Man agement - Score, Transfers: Bed, Chair, Wheelchair - Score, Transfers: Toilet - Score, Transfers: Rupa wer - Score, Transfers: Tub - Score, Locomotion: Walk - Score, Locomotion: Wheelchair - Score, Compre hension - Score, Expression - Score, Social Interaction - Score, Problem Solving - Score, Memory - Sc ore were [electronically] signed by Jarad Chaney on ThuSep 06 2018 15:41:14 T-0500 (Central Daylight Time)
--- NOTE | 2018-09-06 21:52 | R.PN ---
ENCOUNTER DATE AND TIME: 09/06/2018 21:44 (CDT) NAME JOSE ALEJANDRO ROSS DATE OF : 1930 DATE OF ADMISSION: 09/03/2018 17:45 (CDT) ACUTE LEFT PARIETAL LOBE INFARCTIONCHIEF COMPLAINT: Aphasic stroke, dysphagia, incoordination SUBJECTIVE: Pt denied any Shortness of Breath. Pt denied any depression. WBC 6, Hgb 12.1, prealbumin 14.8, Repairer Helper 5.5, urine culture is negative. Ambulated 675', contact guard assistance. Working well speech therapy. He passed his barium swallow t est last Thursday without aspiration. Minor coughing noted with meals. VITAL SIGNS Temperature: 97.6 F SBP/DBP: 149/65 Pulse: 61 Resp: 16 MEDICATION ALLERGIES: DOXYCYCLINE Iodine ENVIRONMENTAL ALLERGIES: None Known - Substance Allergies None Known - Other Allergies None Known NURSING: - Shower allowing shower - Bladder care per protocol - Skin care per protocol PRECAUTIONS: - Weight Bearing Precaution WBAT left LE ACTIVITIES OOB only with supervision THERAPIES: - Occupational Therapy Evaluate and Treat. Visual Perceptual Training. Cognitive Retraining. - Speech Therapy Cognitive Training. Memory Strategies. Speech Intelligibility Training. Expressive Language Skills. R eceptive Language Skills. - Physical Therapy Evaluate and Treat. PHYSICAL EXAM - Gen Alert and awake Lying in bed No apparent distress Oriented to: person, time, and place - Skin No breakdown Normacephalic - Eyes No abnormalities - ENMT No abnormalities - Neck No abnormalities - CVS RRR - Chest No abnormalities - Resp Clear to auscultation - Abd +bowel sounds - GI Soft Deferred - Little urine production. On hemodialysis three times weekly. - Ext No significant edema - MSK 5-/5 weakness in left upper and lower extremity - Neuro Aphasia, dysarthria, 5-/5 strength left upper and lower extremities. Unsteady gait. - Psych Mild depression. ASSESSMENT: Pt. is a 88 yo Right-handed white male.On 09/01/2018 Pt. presented to [facility] with sudden onset of right-side weakness.On 09/01/2018 he was admitted to [facility] with diagnosis ACUTE LEFT PARIETAL LOBE INFARCTION.His impairment category is Stroke 01 - Ri ght Body (Left Brain) (01.2).Pre-morbidly, Pt. was independent/mod-I in Self-Care, Sphincter Control, Transfers Control, Locomotion, Communication, and Social Cognition; and he had good Sphincter Contro l.Currently, he has deficits of Transfers Control, Locomotion, Communication, Endurance, Balance, Saf ety Awareness, and Self-Care.Pt. is now referred to [facility] for acute in-pa tient rehabilitation in order to maximize patient's functional independence in activities of daily li ving, strength, ROM, and mobility.- Rehab Goal Patient has realistic goal of being discharged at assistance level 3-modA to reside at Home with Fam ming/Relatives. MDM/PLAN: - Physical Therapy Gait dysfunction - to improve, our physical therapists will perform initial evaluation of pt's statu s upon admission and devise an individualized program for Gait Training, and Wheel Chair mobility Inability to transfer - to improve, our physical therapists will perform initial evaluation of pt's status upon admission and devise an individualized program for Bed mobility Need for home safety evaluation - to improve, our physical therapists will perform initial evaluatio n of pt's status upon admission and devise an individualized program for Home Evaluation Need in caregiver upon discharge - to improve, our physical therapists will perform initial evaluati on of pt's status upon admission and devise an individualized program for Caregiver Training New precaution - to improve, our physical therapists will perform initial evaluation of pt's status upon admission and devise an individualized program for Patient precaution education Edema - to improve, our physical therapists will perform initial evaluation of pt's status upon admis rui and devise an individualized program for Elevation Training, and Lymphedema Therapy Poor balance - to improve, our physical therapists will perform initial evaluation of pt's status up on admission and devise an individualized program for Balance Training Poor endurance - to improve, our physical therapists will perform initial evaluation of pt's status upon admission and devise an individualized program for Endurance Training Weakness - to improve, our physical therapists will perform initial evaluation of pt's status upon a dmission and devise an individualized program for Aquatic Therapy, Neuromuscular Reeducation, and Str engthening Achieving independence - to improve, our physical therapists will perform initial evaluation of pt's status upon admission and devise an individualized program for Community Reintegration Activities - Occupational Therapy ADL deficits - to improve, our occupation therapists will perform initial evaluation of pt's status upon admission and devise an individualized program for Bathing, Bed mobility, Community Reintegratio n, Cooking, Dressing, Eating, Fine Motor Skills, Grooming, Homemaking, Kitchen Mobility, Laundry, Pat ient Education, Safety Awareness, Splinting - Positioning, Transfers(Toilet, Tub, Shower), and Wheel Chair Management Need for care nurse rn - to improve, our occupation therapists will perform initial evaluation of pt's status upon admission and devise an individualized program for Caregiver Training Weakness - to improve, our occupation therapists will perform initial evaluation of pt's status upon admission and devise an individualized program for Aquatic Therapy, Balance, Endurance, UE ROM, and UE strengthening - Diet Type Continue Regular - Diet - Liquid Texture Continue Regular - Tube Feed Continue N/A - Bladder care per protocol - Weight Bearing Precaution WBAT left LE - Skin care per protocol - Diet - Solid Texture Continue Regular - Shower allowing shower for Dementia, TBI, Stroke, or others FUNCTIONAL STATUS: UPDATED AT WEEKLY TEAM CONFERENCE - Bladder Same accident frequency: 7-Ind - No accidents in the past 7 days - Bowel Same accident frequency: 7-Ind - No accidents in the past 7 days - Walking Same score based on distance walked: 3(>=150ft) - Wheelchair Same score based on distance traveled: 0(N/A) FUNCTIONAL STATUS: - Self-Care A. Eating Ind B. Grooming Ind C. Bathing sup D. Dressing - Upper sup E. Dressing - Lower Gale F. Toileting Gale - Sphincter Control G: Bladder control Ind H: Bowel control Ind - Transfers Control I. Bed/Chair/Wheelchair CGA J. Toilet CGA K. Tub/Shower ADNO - Locomotion L. Walk/Wheelchair (C) CGA L. Walk/Wheelchair (W) CGA M. Stairs ADNO - Communication N. Comprehension (B) Gale O. Expression (B) modA - Social Cognition P. Social Interaction Princess Q. Problem Solving Princess R. Memory Princess - Endurance Fair - Balance Fair - Safety Awareness Fair [facility] DEFICITS: Transfers Control, Locomotion, Communication, Endurance, Balance, Safety Awareness, and Self-Care SIGNATURE PANEL: (CDT)
[2018-09-06] MEDS: DOCUSATE NA/SENNA CONC 1 TAB PO SCH (22:20)
[2018-09-06] MEDS: ATORVASTATIN 20 MG TAB PO SCH (22:20)
--- NOTE | 2018-09-07 02:37 | FAST ---
SHIFT START DATE/TIME: 09/06/2018 19:00 (CDT) SHIFT END DATE/TIME: 09/07/2018 07:00 (CDT) NAME JOSE ALEJANDRO ROSS DATE OF : 1930 DATE OF ADMISSION: 09/03/2018 17:45 (CDT) PHONE: AGE: 88 SSN# [id number] GENDER: Male ENCOUNTER PHYSICIAN: Dr. Deandre Solis M.D. ADMISSION DIAGNOSIS: - Stroke 01 - Right Body (Left Brain) (01.2) ACUTE LEFT PARIETAL LOBE INFARCTION. EATING: Activity did not occur on this shift EATING - SCORE: 0-UNK GROOMING: Activity did not occur on this shift GROOMING - SCORE: 0-UNK BATHING: Activity did not occur on this shift BATHING - SCORE: 0-UNK DRESSING - UPPER BODY: Activity did not occur on this shift ARTICLES SCORE Total number of steps: 0 DRESSING - UPPER BODY - SCORE: 0-UNK DRESSING - LOWER BODY: Activity did not occur on this shift ARTICLES SCORE Total number of steps: 0 DRESSING - LOWER BODY - SCORE: 0-UNK TOILETING: TOILETING - STEP 1: Does the patient require the assistance of a person or device, or need extra time with toileting? Yes . TOILETING - STEP 2: Does the patient require the assistance of a helper? Yes. TOILETING - STEP 3: How much assistance does the patient require from the helper? Only supervision TOILETING - SCORE: 5-SUP BLADDER MANAGEMENT: BLADDER MANAGEMENT - STEP 1: Does the patient control the bladder completely and intentionally without equipment or devices or med ications, and is always continent? Yes. BLADDER MANAGEMENT - SCORE: 7-IND BOWEL MANAGEMENT: Activity did not occur on this shift BOWEL MANAGEMENT - SCORE: 7-IND TRANSFERS: BED, CHAIR, WHEELCHAIR: TRANSFERS: BED, CHAIR, WHEELCHAIR - STEP 1: Does the patient require assistance of a person or device, or need extra time with bed, chair, or whe elchair transfers? Yes. TRANSFERS: BED, CHAIR, WHEELCHAIR - STEP 2: Does the patient require the assistance of a helper? Yes. TRANSFERS: BED, CHAIR, WHEELCHAIR - STEP 3: How much assistance does the patient require from the helper? Steadying/guiding assistance TRANSFERS: BED, CHAIR, WHEELCHAIR - SCORE: 4-MIN TRANSFERS: TOILET: TRANSFERS: TOILET - STEP 1: Does the patient require the assistance of a person or device, or need extra time with toilet transfe rs? Yes. TRANSFERS: TOILET - STEP 2: Does the patient require the assistance of a helper? Yes. TRANSFERS: TOILET - STEP 3: How much assistance does the patient require from the helper? Patient performs half or more of the tr ansferring tasks TRANSFERS: TOILET - STEP 4: Does the patient need only incidental help such as contact guard or steadying during toilet transfer? Yes. TRANSFERS: TOILET - SCORE: 4-MIN TRANSFERS: SHOWER: Activity did not occur on this shift TRANSFERS: SHOWER - SCORE: 0-UNK TRANSFERS: TUB: Activity did not occur on this shift TRANSFERS: TUB - SCORE: 0-UNK LOCOMOTION: WALK: Activity did not occur on this shift LOCOMOTION: WALK - SCORE: 0-UNK LOCOMOTION: WHEELCHAIR: Activity did not occur on this shift LOCOMOTION: WHEELCHAIR - SCORE: 0-UNK COMPREHENSION: COMPREHENSION: TYPE: Both COMPREHENSION - STEP 1: Does the patient require help from a person or device, or need extra time to understand complex and a bstract ideas (such as current events, finances, discharge planning, medical issues, relationships, e tc)? Yes. COMPREHENSION - STEP 2: Does the patient require help to understand questions or statements about basic needs or ideas (such as hunger, thirst, sleep, safety, daily schedule, room location, or discomfort) half or more of the t ezio? Yes. COMPREHENSION - STEP 3: Is the patient basically able to understand and respond appropriately and consistently? Yes. COMPREHENSION - SCORE: 2-MAX EXPRESSION EXPRESSION: TYPE: Both EXPRESSION - STEP 1: Does the patient require help from a person or device, or need extra time expressing complex and abst ract ideas (such as current events, finances, discharge planning, medical issues, relationships, etc) ? Yes. EXPRESSION - STEP 2: Does the patient require help to express basic necessities or ideas (such as hunger, thirst, sleep, s afety, daily schedule, room location, or discomfort) half or more of the time? Yes. EXPRESSION - STEP 3: Is the patient basically unable to express or does s/he express inappropriately or inconsistently key pite prompting? No. EXPRESSION - SCORE: 2-MAX SOCIAL INTERACTION: SOCIAL INTERACTION - STEP 1: Does the patient require a helper to interact with others in social and therapeutic situations? No. SOCIAL INTERACTION - STEP 2: Does the patient need extra time in social situations, OR does s/he interact with staff, other patien ts, and family members ONLY in structured environments, OR does s/he require medication for social in teraction? No. SOCIAL INTERACTION - SCORE: 7-IND PROBLEM SOLVING: Patient requires bed/chair alarms due to attempts to get up unassisted when helper is needed. PROBLEM SOLVING - STEP 1: How often do the bed/chair alarms go off? Occasionally - the alarms go off about 25% or less PROBLEM SOLVING - SCORE: 4-MIN MEMORY: MEMORY - STEP 1: How often do the bed/chair alarms go off? Occasionally - the alarms go off about 25% of the time or l ess MEMORY - SCORE: 4-MIN SIGNATURE PANEL: The following modified sections: Eating - Score, Grooming - Score, Bathing - Score, Dressing - Upper Body - Score, Dressing - Lower Body - Score, Toileting - Score, Bladder Management - Score, Bowel Man agement - Score, Transfers: Bed, Chair, Wheelchair - Score, Transfers: Shower - Score, Transfers: Tub - Score, Locomotion: Walk - Score, Locomotion: Wheelchair - Score, Comprehension - Score, Expression - Score, Social Interaction - Score, Problem Solving - Score, Memory - Score, Transfers: Toilet - Sc ore were [electronically] signed by Divina Pena CNA on ThuSep 07 2018 02:37:01 T-0500 ([facility] Time)
--- NOTE | 2018-09-07 02:57 | PN ---
Date of Progress Note: 09/06/2018 History Of Present Illness: End-stage renal disease, congestive heart failure, acute on chronic escobar tolic and systolic dysfunction. The patient underwent dialysis on Thursday. He is scheduled to have dialysis with ultrafiltration today. Review of Systems: Denies PND or orthopnea. Denies melena or hematemesis. Physical Examination: LUNGS: Crackles bilaterally present. HEART: S1, S2. No pericardial friction. ABDOMEN: Soft and benign. EXTREMITIES: No edema. Laboratory Data: Hemoglobin 10.5. Potassium 3.3, sodium 138, creatinine 3.9, albumin 2.4, BUN 35. Impression And Plan: 1.End-stage renal disease. Next dialysis on Thursday. The patient underwent dialysis today with u ltrafiltration and procedure was well tolerated. 2.Renal osteodystrophy. Monitor phosphorus level. Adjust GUNJAN. 3.Decondition. 4.History of stroke. The patient will continue physical therapy. Monitor urine output and fluid ba orin. 5.Constipation. The patient will have lactulose p.r.n. and Zofran p.r.n. nausea. EB/MODL Voice ID: [id number] Report ID: [id number]
[2018-09-07] MEDS: PANTOPRAZOLE 40MG TABLET PO SCH (05:33)
[2018-09-07] MEDS ORDERED: BISACODYL 10 MG RECTAL SUPP PR PRN (07:10)
[2018-09-07] MEDS ORDERED: FLEET ENEMA ADULT PR PRN (07:11)
[2018-09-07] MEDS: FERROUS SULFATE 325 MG TAB PO SCH (08:29)
[2018-09-07] MEDS: ASPIRIN EC 81 MG TAB PO SCH (08:29)
[2018-09-07] MEDS: CARVEDILOL 6.25 MG TAB PO SCH ×2 (08:29→19:58)
[2018-09-07] MEDS: MULTIVITAMINS,THERAPEUT 1 TAB PO SCH (08:29)
[2018-09-07] MEDS: MAGNESIUM OXIDE 400 MG TAB PO SCH (08:29)
[2018-09-07] MEDS: FOLIC ACID 1 MG TABLET PO SCH (08:30)
[2018-09-07] MEDS: LISINOPRIL 10 MG TAB PO SCH (08:30)
[2018-09-07] MEDS: OCUVITE (VIT A,C & E/LUTEIN/MINERAL) TABLET PO SCH (08:31)
[2018-09-07] MEDS: HEPARIN 5000 UNIT/ML 1 ML VIAL SQ SCH (09:04)
--- NOTE | 2018-09-07 10:43 | FAST ---
SHIFT START DATE/TIME: 09/07/2018 07:00 (CDT) SHIFT END DATE/TIME: 09/07/2018 19:00 (CDT) NAME JOSE ALEJANDRO ROSS DATE OF : 1930 DATE OF ADMISSION: 09/03/2018 17:45 (CDT) PHONE: AGE: 88 SSN# [id number] GENDER: Male ENCOUNTER PHYSICIAN: Dr. Deandre Solis M.D. ADMISSION DIAGNOSIS: - Stroke 01 - Right Body (Left Brain) (01.2) ACUTE LEFT PARIETAL LOBE INFARCTION. EATING: EATING - STEP 1: Does the patient require the assistance of a person or device, or need extra time when eating? Yes. EATING - STEP 2: Does the patient require the assistance of a helper? No, patient only requires an assistive device, O R s/he takes more than reasonable time to eat, OR there is a safety concern, OR s/he requires modifie d food consistency EATING - SCORE: 6-CATHY GROOMING: Comb/brush hair Oral care Wash, rinse, and dry face Wash, rinse, and dry hands GROOMING - STEP 1: Does the patient require the assistance of a person or device, or need extra time when grooming? Yes. GROOMING - STEP 2: Does the patient require the assistance of a helper? No. The patient only requires an assistive devic e, OR takes more than reasonable time to groom, OR there is a concern for safety as the patient groom s GROOMING - SCORE: 6-CATHY BATHING: Activity did not occur on this shift BATHING - SCORE: 0-UNK DRESSING - UPPER BODY: Activity did not occur on this shift ARTICLES SCORE Total number of steps: 0 DRESSING - UPPER BODY - SCORE: 0-UNK DRESSING - LOWER BODY: Activity did not occur on this shift ARTICLES SCORE Total number of steps: 0 DRESSING - LOWER BODY - SCORE: 0-UNK TOILETING: TOILETING - STEP 1: Does the patient require the assistance of a person or device, or need extra time with toileting? Yes . TOILETING - STEP 2: Does the patient require the assistance of a helper? Yes. TOILETING - STEP 3: How much assistance does the patient require from the helper? Hands-on assistance from the helper TOILETING - STEP 4: Of the 3 tasks: 1) Adjusting clothing prior to use, 2) Cleansing of perineal area, 3) Adjusting clot dileep after use; How many tasks does the patient perform WITHOUT assistance of the helper? Two tasks TOILETING - SCORE: 3-MOD BLADDER MANAGEMENT: BLADDER MANAGEMENT - STEP 1: Does the patient control the bladder completely and intentionally without equipment or devices or med ications, and is always continent? No. BLADDER MANAGEMENT - STEP 2: Does the patient require the assistance of a helper? No, patient requires and independently uses an a ssistive device, such as a urinal, bedpan, bedside commode, catheter, absorbent pad, or collecting de vice BLADDER MANAGEMENT - SCORE: 6-CATHY BOWEL MANAGEMENT: Activity did not occur on this shift BOWEL MANAGEMENT - SCORE: 7-IND TRANSFERS: BED, CHAIR, WHEELCHAIR: TRANSFERS: BED, CHAIR, WHEELCHAIR - STEP 1: Does the patient require assistance of a person or device, or need extra time with bed, chair, or whe elchair transfers? Yes. TRANSFERS: BED, CHAIR, WHEELCHAIR - STEP 2: Does the patient require the assistance of a helper? Yes. TRANSFERS: BED, CHAIR, WHEELCHAIR - STEP 3: How much assistance does the patient require from the helper? Only supervision TRANSFERS: BED, CHAIR, WHEELCHAIR - SCORE: 5-SUP TRANSFERS: TOILET: TRANSFERS: TOILET - STEP 1: Does the patient require the assistance of a person or device, or need extra time with toilet transfe rs? Yes. TRANSFERS: TOILET - STEP 2: Does the patient require the assistance of a helper? Yes. TRANSFERS: TOILET - STEP 3: How much assistance does the patient require from the helper? Only supervision, cuing, coaxing, OR he lp to set out transfer equipment or to lock brakes and/or lift foot rests TRANSFERS: TOILET - SCORE: 5-SUP TRANSFERS: SHOWER: Activity did not occur on this shift TRANSFERS: SHOWER - SCORE: 0-UNK TRANSFERS: TUB: Activity did not occur on this shift TRANSFERS: TUB - SCORE: 0-UNK LOCOMOTION: WALK: Activity did not occur on this shift LOCOMOTION: WALK - SCORE: 0-UNK LOCOMOTION: WHEELCHAIR: Activity did not occur on this shift LOCOMOTION: WHEELCHAIR - SCORE: 0-UNK COMPREHENSION: COMPREHENSION: TYPE: Both COMPREHENSION - STEP 1: Does the patient require help from a person or device, or need extra time to understand complex and a bstract ideas (such as current events, finances, discharge planning, medical issues, relationships, e tc)? Yes. COMPREHENSION - STEP 2: Does the patient require help to understand questions or statements about basic needs or ideas (such as hunger, thirst, sleep, safety, daily schedule, room location, or discomfort) half or more of the t ezio? No. COMPREHENSION - STEP 3: How often does the patient need help to understand directions and conversation about basic needs? 10% - 24% of the time COMPREHENSION - SCORE: 4-MIN EXPRESSION EXPRESSION: TYPE: Both EXPRESSION - STEP 1: Does the patient require help from a person or device, or need extra time expressing complex and abst ract ideas (such as current events, finances, discharge planning, medical issues, relationships, etc) ? Yes. EXPRESSION - STEP 2: Does the patient require help to express basic necessities or ideas (such as hunger, thirst, sleep, s afety, daily schedule, room location, or discomfort) half or more of the time? No. EXPRESSION - STEP 3: How often does the patient need help to express directions and conversation about basic needs? 25-49% of the time EXPRESSION - SCORE: 3-MOD SOCIAL INTERACTION: SOCIAL INTERACTION - STEP 1: Does the patient require a helper to interact with others in social and therapeutic situations? Yes. SOCIAL INTERACTION - STEP 2: Does the patient interact appropriately half or more of the time? Yes. SOCIAL INTERACTION - STEP 3: How often does the patient need help to interact appropriately? Less than 10% of the time SOCIAL INTERACTION - SCORE: 5-SUP PROBLEM SOLVING: PROBLEM SOLVING - STEP 1: Does the patient need help from a person or device, or need extra time to solve complex problems such as managing a checking account or confronting interpersonal problems? Yes. PROBLEM SOLVING - STEP 2: Does the patient solve basic routine problems half or more of the time? Yes. PROBLEM SOLVING - STEP 3: How often does the patient need help to solve basic routine problems? 25%-49% of the time PROBLEM SOLVING - SCORE: 3-MOD MEMORY: MEMORY - STEP 1: Does the patient need help from a person or device, or need extra time to remember frequently encount ered people, daily routines, and executing requests? Yes. MEMORY - STEP 2: How often does the patient need help to remember frequently encountered people, daily routines, and e xecuting requests? 25% - 49% of the time MEMORY - SCORE: 3-MOD SIGNATURE PANEL: The following modified sections: Eating - Score, Grooming - Score, Bathing - Score, Dressing - Upper Body - Score, Dressing - Lower Body - Score, Toileting - Score, Bladder Management - Score, Bowel Man agement - Score, Transfers: Bed, Chair, Wheelchair - Score, Transfers: Toilet - Score, Transfers: Rupa wer - Score, Transfers: Tub - Score, Locomotion: Walk - Score, Locomotion: Wheelchair - Score, Compre hension - Score, Expression - Score, Social Interaction - Score, Problem Solving - Score, Memory - Sc ore were [electronically] signed by Jarad Chaney on ThuSep 07 2018 10:42:20 GMT-0500 (Central Daylight Time)
--- NOTE | 2018-09-07 14:08 | FAST ---
ENCOUNTER DATE AND TIME: 09/07/2018 08:00 (CDT) NAME JOSE ALEJANDRO ROSS DATE OF : 1930 DATE OF ADMISSION: 09/03/2018 17:45 (CDT) PHONE: AGE: 88 N# [id number] GENDER: Male ENCOUNTER PHYSICIAN: Dr. Deandre Solis M.D. ADMISSION DIAGNOSIS: - Stroke 01 - Right Body (Left Brain) (01.2) ACUTE LEFT PARIETAL LOBE INFARCTION. EATING: Activity did not occur on this shift EATING - SCORE: 0-UNK GROOMING: Activity did not occur on this shift GROOMING - SCORE: 0-UNK BATHING: Activity did not occur on this shift BATHING - SCORE: 0-UNK DRESSING - UPPER BODY: Activity did not occur on this shift Patient is not dressing in public clothing ARTICLES SCORE Total number of steps: 0 DRESSING - UPPER BODY - SCORE: 0-UNK DRESSING - LOWER BODY: Activity did not occur on this shift Patient is not dressing in public clothing ARTICLES SCORE Total number of steps: 0 DRESSING - LOWER BODY - SCORE: 0-UNK TOILETING: Activity did not occur on this shift TOILETING - SCORE: 0-UNK BLADDER MANAGEMENT: Activity did not occur on this shift BLADDER MANAGEMENT - SCORE: 7-IND BOWEL MANAGEMENT: Activity did not occur on this shift BOWEL MANAGEMENT - SCORE: 7-IND TRANSFERS: BED, CHAIR, WHEELCHAIR: TRANSFERS: BED, CHAIR, WHEELCHAIR - STEP 1: Does the patient require assistance of a person or device, or need extra time with bed, chair, or whe elchair transfers? Yes. TRANSFERS: BED, CHAIR, WHEELCHAIR - STEP 2: Does the patient require the assistance of a helper? Yes. TRANSFERS: BED, CHAIR, WHEELCHAIR - STEP 3: How much assistance does the patient require from the helper? Steadying/guiding assistance TRANSFERS: BED, CHAIR, WHEELCHAIR - SCORE: 4-MIN TRANSFERS: TOILET: Activity did not occur on this shift TRANSFERS: TOILET - SCORE: 0-UNK TRANSFERS: SHOWER: Activity did not occur on this shift TRANSFERS: SHOWER - SCORE: 0-UNK TRANSFERS: TUB: Activity did not occur on this shift TRANSFERS: TUB - SCORE: 0-UNK LOCOMOTION: WALK: LOCOMOTION: WALK - STEP 1: Does the patient need help from a person or device, or need extra time to walk 150 feet? Yes. LOCOMOTION: WALK - STEP 2: How much assistance does the patient require to walk a minimum of 150 feet? Only incidental help such as contact guarding or steadying LOCOMOTION: WALK - SCORE: 4-MIN LOCOMOTION: WHEELCHAIR: Activity did not occur on this shift LOCOMOTION: WHEELCHAIR - SCORE: 0-UNK LOCOMOTION: STAIRS: Activity did not occur on this shift LOCOMOTION: STAIRS - SCORE: 0-UNK COMPREHENSION: COMPREHENSION - SCORE: 0-UNK EXPRESSION EXPRESSION - SCORE: 0-UNK SOCIAL INTERACTION: SOCIAL INTERACTION - SCORE: 0-UNK PROBLEM SOLVING: PROBLEM SOLVING - SCORE: 0-UNK MEMORY: MEMORY - SCORE: 0-UNK SIGNATURE PANEL: The following modified sections: Transfers: Bed, Chair, Wheelchair - Score, Transfers: Toilet - Score , Locomotion: Walk - Score, Locomotion: Wheelchair - Score, Locomotion: Stairs - Score were [electron genesis] signed by Shorty Fernandez PT on ThuSep 07 2018 14:07:40 T-0500 (Central Daylight Time)
[2018-09-07] MEDS: MAGNES/ALUMIN/SIMET 30ML UCUP PO PRN ×2 (14:44→23:16)
--- NOTE | 2018-09-07 15:59 | P.CNS ---
Date of Consult: 09/07/18 Reason for Consult: Painful toenails and left heel Chief Complaint: Painful toenails and left heel Allergies doxycycline Allergy (Verified 06/29/18 09:20) Itching/Hives/Rash iodine [Iodine] Allergy (Verified 06/29/18 09:20) constipation Home Medications: Aspirin [Adult Aspirin] 1 tab PO DAILY 04/30/18 Carvedilol [Coreg] 6.25 mg PO BID 04/30/18 Docusate/Senna [Senokot-S*] 3 tab PO BEDTIME 04/30/18 Folic Acid 1 tab PO DAILY 04/30/18 Hydralazine [Apresoline*] 1 tab PO TID PRN 04/30/18 Lisinopril 1 tab PO DAILY 04/30/18 Simvastatin 1 tab PO BEDTIME 04/30/18 Multivitamin [Multivitamins] 1 each PO DAILY 06/10/18 Omeprazole [Prilosec] 40 mg PO DAILY 06/10/18 Ferrous Sulfate [Ferrous Sulfate*] 1 tab PO DAILY 09/02/18 Magnesium Oxide [Magnesium] 1 tab PO DAILY 09/02/18 Vit A/Vit C/Vit E/Zinc/Copper [Preservision Areds Softgel] 1 tab PO BID - Past Medical/Surgical History Diabetic: No -: Angina -: CAD -: HTN -: Hylerlipidemia -: Colon Ca -: CKD Stage 3 -: skin Ca- squamous cell-left ear, face & right hand -: dyspnea -: ESRD (MWF) -: ADD/ADHD -: anemia -: CHF -: part of colon removed(2007) -: removal of skin Ca from left ear, face & right hand(different times) -: right shoulder surgery -: left fistula -: right pascual - Family History Father Medical History: Heart disease Sister Medical History: Diabetes, Cancer Notes: colon cancer - Social History Smoking Status: Unknown if ever smoked Alcohol use: No CD- Drugs: No Caffeine use: No Place of Residence: Home Review of Systems 10-point ROS is otherwise unremarkable Physical Examination Temp Pulse Resp BP Pulse Ox 97.8 F 63 16 132/62 98 09/07/18 07:03 09/07/18 08:30 09/07/18 07:03 09/07/18 08:30 09/07/18 07:03 General: Alert, In no apparent distress Cardiovascular: No edema, Abnormal pulses (nonpalpable pedal pulses bilateral) Capillary refill: >2 Seconds Musculoskeletal: No clubbing, No swelling, No contractures, No erythema, Tenderness (tenderness on palpation posterior aspect of left heel with lexi prominence. Mild erythema, no eschar, no open wound) Integumentary: Other (absent hair growth bilateral feet with thickened hypertrophic nails with subungual debris bilateral hallux and third digit. Dystrophic nails otherwise) Neurological: Sensation intact - Problems (1) Generalized atherosclerosis Current Visit: Yes Status: Acute (2) Tinea unguium Current Visit: Yes Status: Acute (3) Onychogryphosis Current Visit: Yes Status: Acute Conclusions/Impression: Debridement of nails at bedside. Patient has lexi prominence posterior left heel that when the foot is resting in the bed/recliner causes pressure on this area. Patient to suspend left heel off of a pillow to relieve pressure Physician Review: Patient Assessed, Agree with Above Assessment and Plan Critical Care: No Time Spent Managing Pts care (In Minutes): 30
--- NOTE | 2018-09-07 16:54 | PN ---
Date of Progress Note: 09/07/2018 Subjective: The patient complaining of epigastric pain. The patient was admitted with CVA. Transfe rred to rehab. Physical Examination: Vital Signs: Blood pressure 132/62, pulse of 63. Chest: Clear to auscultation. Heart: S1, S2. Regular. Abdomen: Mild tenderness on the epigastric area. Extremities: No edema. Laboratory Data: H and H of 12.1/38.4. Sodium 138, potassium 4.1, bicarb 29, BUN 42, creatinine 5.5 , calcium 8.9. Medications: Current medications the patient is on include: 1.Ferrous sulfate. 2.Atorvastatin. 3.Carvedilol 6.25. 4.Hydralazine 25 t.i.d. 5.Lisinopril. 6.Pantoprazole. Assessment And Plan: 1.End-stage renal disease. Normal volume. I am going to continue the patient on dialysis Thursday, W , Thursday. The patient is going to be due for dialysis tomorrow. 2.Hypertension, controlled optimal to avoid low blood pressure. I am going to hold on the hydralazi ne for the time being and we will follow up. 3.Cerebrovascular accident. Continue PT/OT. Follow up with Primary. 4.Anemia of chronic kidney disease. No need for GUNJAN for the time being. ILDA Voice ID: [id number] Report ID: [id number]
--- NOTE | 2018-09-07 18:24 | R.PN ---
ENCOUNTER DATE AND TIME: 09/07/2018 18:19 (CDT) NAME JOSE ALEJANDRO ROSS DATE OF : 1930 DATE OF ADMISSION: 09/03/2018 17:45 (CDT) ACUTE LEFT PARIETAL LOBE INFARCTIONCHIEF COMPLAINT: Aphasic stroke, dysphagia, incoordination SUBJECTIVE: Pt denied any Shortness of Breath. Pt denied any depression. WBC 6, Hgb 12.1, prealbumin 14.8, Hop Strainer 5.5, urine culture is negative. Ambulated 500' contact guard assistance. Working well speech therapy. He passed his barium swallow te st last Thursday without aspiration. Minor coughing noted with meals. Dr. Man identified left heel bone spur likely causing pain in the left heel. Rec. off loading the h eel. VITAL SIGNS Temperature: 97.8 F SBP/DBP: 132/62 Pulse: 63 Resp: 16 MEDICATION ALLERGIES: DOXYCYCLINE Iodine ENVIRONMENTAL ALLERGIES: None Known - Substance Allergies None Known - Other Allergies None Known NURSING: - Shower allowing shower - Bladder care per protocol - Skin care per protocol PRECAUTIONS: - Weight Bearing Precaution WBAT left LE ACTIVITIES OOB only with supervision THERAPIES: - Occupational Therapy Evaluate and Treat. Visual Perceptual Training. Cognitive Retraining. - Speech Therapy Cognitive Training. Memory Strategies. Speech Intelligibility Training. Expressive Language Skills. R eceptive Language Skills. - Physical Therapy Evaluate and Treat. PHYSICAL EXAM - Gen Alert and awake Lying in bed No apparent distress Oriented to: person, time, and place - Skin No breakdown Normacephalic - Eyes No abnormalities - ENMT No abnormalities - Neck No abnormalities - CVS RRR - Chest No abnormalities - Resp Clear to auscultation - Abd +bowel sounds - GI Soft Deferred - Little urine production. On hemodialysis three times weekly. - Ext No significant edema - MSK 5-/5 weakness in left upper and lower extremity - Neuro Aphasia, dysarthria, 5-/5 strength left upper and lower extremities. Unsteady gait. - Psych Mild depression. ASSESSMENT: Pt. is a 88 yo Right-handed white male.On 09/01/2018 Pt. presented to [facility] with sudden onset of right-side weakness.On 09/01/2018 [facility] ACUTE LEFT PARIETAL LOBE INFARCTION.His impairment category is Stroke 01 - Ri ght Body (Left Brain) (01.2).Pre-morbidly, Pt. was independent/mod-I in Self-Care, Sphincter Control, Transfers Control, Locomotion, Communication, and Social Cognition; and he had good Sphincter Contro l.Currently, he has deficits of Transfers Control, Locomotion, Communication, Endurance, Balance, Saf ety Awareness, and Self-Care.Pt. is now referred to [facility] for acute in-pa tient rehabilitation in order to maximize patient's functional independence in activities of daily li ving, strength, ROM, and mobility.- Rehab Goal Patient has realistic goal of being discharged at assistance level 3-modA to reside at Home with Fam ming/Relatives. MDM/PLAN: - Physical Therapy Gait dysfunction - to improve, our physical therapists will perform initial evaluation of pt's statu s upon admission and devise an individualized program for Gait Training, and Wheel Chair mobility Inability to transfer - to improve, our physical therapists will perform initial evaluation of pt's status upon admission and devise an individualized program for Bed mobility Need for home safety evaluation - to improve, our physical therapists will perform initial evaluatio n of pt's status upon admission and devise an individualized program for Home Evaluation Need in caregiver upon discharge - to improve, our physical therapists will perform initial evaluati on of pt's status upon admission and devise an individualized program for Caregiver Training New precaution - to improve, our physical therapists will perform initial evaluation of pt's status upon admission and devise an individualized program for Patient precaution education Edema - to improve, our physical therapists will perform initial evaluation of pt's status upon admi ssion and devise an individualized program for Elevation Training, and Lymphedema Therapy Poor balance - to improve, our physical therapists will perform initial evaluation of pt's status up on admission and devise an individualized program for Balance Training Poor endurance - to improve, our physical therapists will perform initial evaluation of pt's status upon admission and devise an individualized program for Endurance Training Weakness - to improve, our physical therapists will perform initial evaluation of pt's status upon a dmission and devise an individualized program for Aquatic Therapy, Neuromuscular Reeducation, and Str engthening Achieving independence - to improve, our physical therapists will perform initial evaluation of pt's status upon admission and devise an individualized program for Community Reintegration Activities - Occupational Therapy ADL deficits - to improve, our occupation therapists will perform initial evaluation of pt's status upon admission and devise an individualized program for Bathing, Bed mobility, Community Reintegratio n, Cooking, Dressing, Eating, Fine Motor Skills, Grooming, Homemaking, Kitchen Mobility, Laundry, Pat ient Education, Safety Awareness, Splinting - Positioning, Transfers(Toilet, Tub, Shower), and Wheel Chair Management Need for hearing care professional - to improve, our occupation therapists will perform initial evaluation of pt's status upon admission and devise an individualized program for Caregiver Training Weakness - to improve, our occupation therapists will perform initial evaluation of pt's status upon admission and devise an individualized program for Aquatic Therapy, Balance, Endurance, UE ROM, and UE strengthening - Diet Type Continue Regular - Diet - Liquid Texture Continue Regular - Tube Feed Continue N/A - Bladder care per protocol - Weight Bearing Precaution WBAT left LE - Skin care per protocol - Diet - Solid Texture Continue Regular - Shower allowing shower for Dementia, TBI, Stroke, or others FUNCTIONAL STATUS: UPDATED AT WEEKLY TEAM CONFERENCE - Bladder Same accident frequency: 7-Ind - No accidents in the past 7 days - Bowel Same accident frequency: 7-Ind - No accidents in the past 7 days - Walking Same score based on distance walked: 3(>=150ft) - Wheelchair Same score based on distance traveled: 0(N/A) FUNCTIONAL STATUS: - Self-Care A. Eating Ind B. Grooming Ind C. Bathing sup D. Dressing - Upper sup E. Dressing - Lower Gale F. Toileting Gale - Sphincter Control G: Bladder control Ind H: Bowel control Ind - Transfers Control I. Bed/Chair/Wheelchair CGA J. Toilet CGA K. Tub/Shower ADNO - Locomotion L. Walk/Wheelchair (C) CGA L. Walk/Wheelchair (W) CGA M. Stairs ADNO - Communication N. Comprehension (B) Gale O. Expression (B) modA - Social Cognition P. Social Interaction Princess Q. Problem Solving Princess R. Memory Princess - Endurance Fair - Balance Fair - Safety Awareness Fair CURRENT FUNC. DEFICITS: Transfers Control, Locomotion, Communication, Endurance, Balance, Safety Awareness, and Self-Care SIGNATURE PANEL: (CDT)
[2018-09-07] MEDS: MELATONIN 3 MG TABLET PO SCH (19:59)
[2018-09-07] MEDS: ATORVASTATIN 20 MG TAB PO SCH (19:59)
[2018-09-07] MEDS: DOCUSATE NA/SENNA CONC 1 TAB PO SCH (19:59)
[2018-09-07] MEDS: GABAPENTIN 100 MG CAP PO SCH (19:59)
--- NOTE | 2018-09-08 02:00 | FAST ---
SHIFT START DATE/TIME: 09/07/2018 19:00 (CDT) SHIFT END DATE/TIME: 09/08/2018 07:00 (CDT) NAME JOSE ALEJANDRO ROSS DATE OF : 1930 DATE OF ADMISSION: 09/03/2018 17:45 (CDT) PHONE: AGE: 88 N# [id number] GENDER: Male ENCOUNTER PHYSICIAN: Dr. Deandre Solis M.D. ADMISSION DIAGNOSIS: - Stroke 01 - Right Body (Left Brain) (01.2) ACUTE LEFT PARIETAL LOBE INFARCTION. EATING: Activity did not occur on this shift EATING - SCORE: 0-UNK GROOMING: Activity did not occur on this shift GROOMING - SCORE: 0-UNK BATHING: Activity did not occur on this shift BATHING - SCORE: 0-UNK DRESSING - UPPER BODY: Activity did not occur on this shift ARTICLES SCORE Total number of steps: 0 DRESSING - UPPER BODY - SCORE: 0-UNK DRESSING - LOWER BODY: Activity did not occur on this shift ARTICLES SCORE Total number of steps: 0 DRESSING - LOWER BODY - SCORE: 0-UNK TOILETING: TOILETING - STEP 1: Does the patient require the assistance of a person or device, or need extra time with toileting? Yes . TOILETING - STEP 2: Does the patient require the assistance of a helper? Yes. TOILETING - STEP 3: How much assistance does the patient require from the helper? Hands-on assistance from the helper TOILETING - STEP 4: Of the 3 tasks: 1) Adjusting clothing prior to use, 2) Cleansing of perineal area, 3) Adjusting clot dileep after use; How many tasks does the patient perform WITHOUT assistance of the helper? Three tasks with steadying assistance from the helper TOILETING - SCORE: 4-MIN BLADDER MANAGEMENT: BLADDER MANAGEMENT - STEP 1: Does the patient control the bladder completely and intentionally without equipment or devices or med ications, and is always continent? Yes. BLADDER MANAGEMENT - SCORE: 7-IND BOWEL MANAGEMENT: Activity did not occur on this shift BOWEL MANAGEMENT - SCORE: 7-IND TRANSFERS: BED, CHAIR, WHEELCHAIR: TRANSFERS: BED, CHAIR, WHEELCHAIR - STEP 1: Does the patient require assistance of a person or device, or need extra time with bed, chair, or whe elchair transfers? Yes. TRANSFERS: BED, CHAIR, WHEELCHAIR - STEP 2: Does the patient require the assistance of a helper? Yes. TRANSFERS: BED, CHAIR, WHEELCHAIR - STEP 3: How much assistance does the patient require from the helper? Steadying/guiding assistance TRANSFERS: BED, CHAIR, WHEELCHAIR - SCORE: 4-MIN TRANSFERS: TOILET: TRANSFERS: TOILET - STEP 1: Does the patient require the assistance of a person or device, or need extra time with toilet transfe rs? Yes. TRANSFERS: TOILET - STEP 2: Does the patient require the assistance of a helper? Yes. TRANSFERS: TOILET - STEP 3: How much assistance does the patient require from the helper? Patient performs half or more of the tr ansferring tasks TRANSFERS: TOILET - STEP 4: Does the patient need only incidental help such as contact guard or steadying during toilet transfer? Yes. TRANSFERS: TOILET - SCORE: 4-MIN TRANSFERS: SHOWER: Activity did not occur on this shift TRANSFERS: SHOWER - SCORE: 0-UNK TRANSFERS: TUB: Activity did not occur on this shift TRANSFERS: TUB - SCORE: 0-UNK LOCOMOTION: WALK: Activity did not occur on this shift LOCOMOTION: WALK - SCORE: 0-UNK LOCOMOTION: WHEELCHAIR: Activity did not occur on this shift LOCOMOTION: WHEELCHAIR - SCORE: 0-UNK COMPREHENSION: COMPREHENSION: TYPE: Both COMPREHENSION - STEP 1: Does the patient require help from a person or device, or need extra time to understand complex and a bstract ideas (such as current events, finances, discharge planning, medical issues, relationships, e tc)? Yes. COMPREHENSION - STEP 2: Does the patient require help to understand questions or statements about basic needs or ideas (such as hunger, thirst, sleep, safety, daily schedule, room location, or discomfort) half or more of the t ezio? Yes. COMPREHENSION - STEP 3: Is the patient basically able to understand and respond appropriately and consistently? Yes. COMPREHENSION - SCORE: 2-MAX EXPRESSION EXPRESSION: TYPE: Both EXPRESSION - STEP 1: Does the patient require help from a person or device, or need extra time expressing complex and abst ract ideas (such as current events, finances, discharge planning, medical issues, relationships, etc) ? Yes. EXPRESSION - STEP 2: Does the patient require help to express basic necessities or ideas (such as hunger, thirst, sleep, s afety, daily schedule, room location, or discomfort) half or more of the time? Yes. EXPRESSION - STEP 3: Is the patient basically unable to express or does s/he express inappropriately or inconsistently key pite prompting? No. EXPRESSION - SCORE: 2-MAX SOCIAL INTERACTION: SOCIAL INTERACTION - STEP 1: Does the patient require a helper to interact with others in social and therapeutic situations? No. SOCIAL INTERACTION - STEP 2: Does the patient need extra time in social situations, OR does s/he interact with staff, other patien ts, and family members ONLY in structured environments, OR does s/he require medication for social in teraction? Yes, patient needs extra time SOCIAL INTERACTION - SCORE: 6-CATHY PROBLEM SOLVING: Patient requires bed/chair alarms due to attempts to get up unassisted when helper is needed. PROBLEM SOLVING - STEP 1: How often do the bed/chair alarms go off? Occasionally - the alarms go off about 25% or less PROBLEM SOLVING - SCORE: 4-MIN MEMORY: MEMORY - STEP 1: How often do the bed/chair alarms go off? Occasionally - the alarms go off about 25% of the time or l ess MEMORY - SCORE: 4-MIN SIGNATURE PANEL: The following modified sections: Eating - Score, Grooming - Score, Bathing - Score, Dressing - Upper Body - Score, Dressing - Lower Body - Score, Toileting - Score, Bladder Management - Score, Bowel Man agement - Score, Transfers: Bed, Chair, Wheelchair - Score, Transfers: Toilet - Score, Transfers: Rupa wer - Score, Transfers: Tub - Score, Locomotion: Walk - Score, Locomotion: Wheelchair - Score, Compre hension - Score, Expression - Score, Social Interaction - Score, Problem Solving - Score, Memory - Sc ore were [electronically] signed by Divina Pena CNA on ThuSep 08 2018 01:59:35 GMT-0500 ([place] Da ylight Time)
[2018-09-08] MEDS: HEPARIN 5000 UNIT/ML 1 ML VIAL SQ SCH (07:06)
[2018-09-08] MEDS: PANTOPRAZOLE 40MG TABLET PO SCH (07:06)
[2018-09-08] MEDS: CARVEDILOL 6.25 MG TAB PO SCH ×2 (08:30→21:39)
[2018-09-08] MEDS: MAGNESIUM OXIDE 400 MG TAB PO SCH (08:31)
[2018-09-08] MEDS: ASPIRIN EC 81 MG TAB PO SCH (08:31)
[2018-09-08] MEDS: FOLIC ACID 1 MG TABLET PO SCH (08:31)
[2018-09-08] MEDS: OCUVITE (VIT A,C & E/LUTEIN/MINERAL) TABLET PO SCH (08:31)
[2018-09-08] MEDS: FERROUS SULFATE 325 MG TAB PO SCH (08:31)
[2018-09-08] MEDS: MULTIVITAMINS,THERAPEUT 1 TAB PO SCH (08:31)
[2018-09-08] MEDS: LISINOPRIL 10 MG TAB PO SCH (08:31)
[2018-09-08] MEDS: MAGNES/ALUMIN/SIMET 30ML UCUP PO PRN (09:29)
--- NOTE | 2018-09-08 13:55 | FAST ---
SHIFT START DATE/TIME: 09/08/2018 07:00 (CDT) SHIFT END DATE/TIME: 09/08/2018 19:00 (CDT) NAME JOSE ALEJANDRO ROSS DATE OF : 1930 DATE OF ADMISSION: 09/03/2018 17:45 (CDT) PHONE: AGE: 88 SSN# [id number] GENDER: Male ENCOUNTER PHYSICIAN: Dr. Deandre Solis M.D. ADMISSION DIAGNOSIS: - Stroke 01 - Right Body (Left Brain) (01.2) ACUTE LEFT PARIETAL LOBE INFARCTION. EATING: EATING - STEP 1: Does the patient require the assistance of a person or device, or need extra time when eating? Yes. EATING - STEP 2: Does the patient require the assistance of a helper? No, patient only requires an assistive device, O R s/he takes more than reasonable time to eat, OR there is a safety concern, OR s/he requires modifie d food consistency EATING - SCORE: 6-CATHY GROOMING: GROOMING - STEP 1: Does the patient require the assistance of a person or device, or need extra time when grooming? Yes. GROOMING - STEP 2: Does the patient require the assistance of a helper? No. The patient only requires an assistive devic e, OR takes more than reasonable time to groom, OR there is a concern for safety as the patient groom s GROOMING - SCORE: 6-CATHY BATHING: Activity did not occur on this shift BATHING - SCORE: 0-UNK DRESSING - UPPER BODY: Activity did not occur on this shift ARTICLES SCORE Total number of steps: 0 DRESSING - UPPER BODY - SCORE: 0-UNK DRESSING - LOWER BODY: Activity did not occur on this shift ARTICLES SCORE Total number of steps: 0 DRESSING - LOWER BODY - SCORE: 0-UNK TOILETING: TOILETING - STEP 1: Does the patient require the assistance of a person or device, or need extra time with toileting? Yes . TOILETING - STEP 2: Does the patient require the assistance of a helper? Yes. TOILETING - STEP 3: How much assistance does the patient require from the helper? Hands-on assistance from the helper TOILETING - STEP 4: Of the 3 tasks: 1) Adjusting clothing prior to use, 2) Cleansing of perineal area, 3) Adjusting clot dileep after use; How many tasks does the patient perform WITHOUT assistance of the helper? Two tasks TOILETING - SCORE: 3-MOD BLADDER MANAGEMENT: Patient is on renal dialysis or peritoneal dialysis and no voiding activity BLADDER MANAGEMENT - SCORE: 7-IND BLADDER MANAGEMENT - FREQUENCY OF ACCIDENTS: BLADDER MANAGEMENT(FA) - STEP 1: How many accidents has the patient had during the current shift? 0 BOWEL MANAGEMENT: BOWEL MANAGEMENT - STEP 1: Does the patient control bowels completely and intentionally without equipment devices or medications AND is always continent? No. BOWEL MANAGEMENT - STEP 2: Does the patient require the assistance of a helper? No, patient requires medication for control such as stool softeners, suppositories, laxatives, enemas, or OTC medications BOWEL MANAGEMENT - SCORE: 6-CATHY BOWEL MANAGEMENT - FREQUENCY OF ACCIDENTS: BOWEL MANAGEMENT(FA) - STEP 1: How many accidents has the patient had during the current shift? 0 TRANSFERS: BED, CHAIR, WHEELCHAIR: TRANSFERS: BED, CHAIR, WHEELCHAIR - STEP 1: Does the patient require assistance of a person or device, or need extra time with bed, chair, or whe elchair transfers? Yes. TRANSFERS: BED, CHAIR, WHEELCHAIR - STEP 2: Does the patient require the assistance of a helper? Yes. TRANSFERS: BED, CHAIR, WHEELCHAIR - STEP 3: How much assistance does the patient require from the helper? Steadying/guiding assistance TRANSFERS: BED, CHAIR, WHEELCHAIR - SCORE: 4-MIN TRANSFERS: TOILET: TRANSFERS: TOILET - STEP 1: Does the patient require the assistance of a person or device, or need extra time with toilet transfe rs? Yes. TRANSFERS: TOILET - STEP 2: Does the patient require the assistance of a helper? Yes. TRANSFERS: TOILET - STEP 3: How much assistance does the patient require from the helper? Only supervision, cuing, coaxing, OR he lp to set out transfer equipment or to lock brakes and/or lift foot rests TRANSFERS: TOILET - SCORE: 5-SUP TRANSFERS: SHOWER: Activity did not occur on this shift TRANSFERS: SHOWER - SCORE: 0-UNK TRANSFERS: TUB: Activity did not occur on this shift TRANSFERS: TUB - SCORE: 0-UNK LOCOMOTION: WALK: LOCOMOTION: WALK - STEP 1: Does the patient need help from a person or device, or need extra time to walk 150 feet? Yes. LOCOMOTION: WALK - STEP 2: How much assistance does the patient require to walk a minimum of 150 feet? Only incidental help such as contact guarding or steadying LOCOMOTION: WALK - SCORE: 4-MIN LOCOMOTION: WHEELCHAIR: Activity did not occur on this shift LOCOMOTION: WHEELCHAIR - SCORE: 0-UNK COMPREHENSION: COMPREHENSION: TYPE: Both COMPREHENSION - STEP 1: Does the patient require help from a person or device, or need extra time to understand complex and a bstract ideas (such as current events, finances, discharge planning, medical issues, relationships, e tc)? Yes. COMPREHENSION - STEP 2: Does the patient require help to understand questions or statements about basic needs or ideas (such as hunger, thirst, sleep, safety, daily schedule, room location, or discomfort) half or more of the t ezio? No. COMPREHENSION - STEP 3: How often does the patient need help to understand directions and conversation about basic needs? 10% - 24% of the time COMPREHENSION - SCORE: 4-MIN EXPRESSION EXPRESSION: TYPE: Both EXPRESSION - STEP 1: Does the patient require help from a person or device, or need extra time expressing complex and abst ract ideas (such as current events, finances, discharge planning, medical issues, relationships, etc) ? Yes. EXPRESSION - STEP 2: Does the patient require help to express basic necessities or ideas (such as hunger, thirst, sleep, s afety, daily schedule, room location, or discomfort) half or more of the time? No. EXPRESSION - STEP 3: How often does the patient need help to express directions and conversation about basic needs? 25-49% of the time EXPRESSION - SCORE: 3-MOD SOCIAL INTERACTION: SOCIAL INTERACTION - STEP 1: Does the patient require a helper to interact with others in social and therapeutic situations? No. SOCIAL INTERACTION - STEP 2: Does the patient need extra time in social situations, OR does s/he interact with staff, other patien ts, and family members ONLY in structured environments, OR does s/he require medication for social in teraction? Yes, patient needs extra time SOCIAL INTERACTION - SCORE: 6-CATHY PROBLEM SOLVING: PROBLEM SOLVING - STEP 1: Does the patient need help from a person or device, or need extra time to solve complex problems such as managing a checking account or confronting interpersonal problems? Yes. PROBLEM SOLVING - STEP 2: Does the patient solve basic routine problems half or more of the time? Yes. PROBLEM SOLVING - STEP 3: How often does the patient need help to solve basic routine problems? 25%-49% of the time PROBLEM SOLVING - SCORE: 3-MOD MEMORY: MEMORY - STEP 1: Does the patient need help from a person or device, or need extra time to remember frequently encount ered people, daily routines, and executing requests? Yes. MEMORY - STEP 2: How often does the patient need help to remember frequently encountered people, daily routines, and e xecuting requests? 25% - 49% of the time MEMORY - SCORE: 3-MOD SIGNATURE PANEL: The following modified sections: Eating - Score, Grooming - Score, Bathing - Score, Dressing - Upper Body - Score, Dressing - Lower Body - Score, Toileting - Score, Bladder Management - Score, Bowel Man agement - Score, Transfers: Bed, Chair, Wheelchair - Score, Transfers: Toilet - Score, Transfers: Rupa wer - Score, Transfers: Tub - Score, Locomotion: Walk - Score, Locomotion: Wheelchair - Score, Compre hension - Score, Expression - Score, Social Interaction - Score, Problem Solving - Score, Memory - Sc ore were [electronically] signed by Su Pop C.N.A. on ThuSep 08 2018 13:54:52 T-0500 ([place])
--- NOTE | 2018-09-08 14:37 | FAST ---
ENCOUNTER DATE AND TIME: 09/08/2018 08:00 (CDT) NAME JOSE ALEJANDRO ROSS DATE OF : 1930 DATE OF ADMISSION: 09/03/2018 17:45 (CDT) PHONE: AGE: 88 N# [id number] GENDER: Male ENCOUNTER PHYSICIAN: Dr. Deandre Solis M.D. ADMISSION DIAGNOSIS: - Stroke 01 - Right Body (Left Brain) (01.2) ACUTE LEFT PARIETAL LOBE INFARCTION. EATING: Activity did not occur on this shift EATING - SCORE: 0-UNK GROOMING: Activity did not occur on this shift GROOMING - SCORE: 0-UNK BATHING: Activity did not occur on this shift BATHING - SCORE: 0-UNK DRESSING - UPPER BODY: Activity did not occur on this shift Patient is not dressing in public clothing ARTICLES SCORE Total number of steps: 0 DRESSING - UPPER BODY - SCORE: 0-UNK DRESSING - LOWER BODY: Activity did not occur on this shift Patient is not dressing in public clothing ARTICLES SCORE Total number of steps: 0 DRESSING - LOWER BODY - SCORE: 0-UNK TOILETING: Activity did not occur on this shift TOILETING - SCORE: 0-UNK BLADDER MANAGEMENT: Activity did not occur on this shift BLADDER MANAGEMENT - SCORE: 7-IND BOWEL MANAGEMENT: Activity did not occur on this shift BOWEL MANAGEMENT - SCORE: 7-IND TRANSFERS: BED, CHAIR, WHEELCHAIR: TRANSFERS: BED, CHAIR, WHEELCHAIR - STEP 1: Does the patient require assistance of a person or device, or need extra time with bed, chair, or whe elchair transfers? Yes. TRANSFERS: BED, CHAIR, WHEELCHAIR - STEP 2: Does the patient require the assistance of a helper? Yes. TRANSFERS: BED, CHAIR, WHEELCHAIR - STEP 3: How much assistance does the patient require from the helper? Only supervision TRANSFERS: BED, CHAIR, WHEELCHAIR - SCORE: 5-SUP TRANSFERS: TOILET: Activity did not occur on this shift TRANSFERS: TOILET - SCORE: 0-UNK TRANSFERS: SHOWER: Activity did not occur on this shift TRANSFERS: SHOWER - SCORE: 0-UNK TRANSFERS: TUB: Activity did not occur on this shift TRANSFERS: TUB - SCORE: 0-UNK LOCOMOTION: WALK: LOCOMOTION: WALK - STEP 1: Does the patient need help from a person or device, or need extra time to walk 150 feet? Yes. LOCOMOTION: WALK - STEP 2: How much assistance does the patient require to walk a minimum of 150 feet? Only supervision, cuing, or coaxing LOCOMOTION: WALK - SCORE: 5-SUP LOCOMOTION: WHEELCHAIR: Activity did not occur on this shift LOCOMOTION: WHEELCHAIR - SCORE: 0-UNK LOCOMOTION: STAIRS: LOCOMOTION: STAIRS - STEP 1: Does the patient need help to go up and down 12 to 14 stairs? Yes. LOCOMOTION: STAIRS - STEP 2: How much assistance does the patient need from the helper to go a minimum of 12 to 14 stairs? Only dee pervision, cuing, or coaxing LOCOMOTION: STAIRS - SCORE: 5-SUP COMPREHENSION: COMPREHENSION - SCORE: 0-UNK EXPRESSION EXPRESSION - SCORE: 0-UNK SOCIAL INTERACTION: SOCIAL INTERACTION - SCORE: 0-UNK PROBLEM SOLVING: PROBLEM SOLVING - SCORE: 0-UNK MEMORY: MEMORY - SCORE: 0-UNK SIGNATURE PANEL: The following modified sections: Transfers: Bed, Chair, Wheelchair - Score, Transfers: Toilet - Score , Locomotion: Walk - Score, Locomotion: Wheelchair - Score, Locomotion: Stairs - Score were [electron genesis] signed by Shorty Fernandez PT on ThuSep 08 2018 14:37:10 T-0500 ([place] Daylight Time)
[2018-09-08] MEDS: ATORVASTATIN 20 MG TAB PO SCH (21:39)
[2018-09-08] MEDS: DOCUSATE NA/SENNA CONC 1 TAB PO SCH (21:40)
[2018-09-08] MEDS: GABAPENTIN 100 MG CAP PO SCH (21:40)
[2018-09-08] MEDS: MELATONIN 3 MG TABLET PO SCH (21:40)
--- NOTE | 2018-09-09 02:17 | FAST ---
SHIFT START DATE/TIME: 09/08/2018 19:00 (CDT) SHIFT END DATE/TIME: 09/09/2018 07:00 (CDT) NAME JOSE ALEJANDRO ROSS DATE OF : 1930 DATE OF ADMISSION: 09/03/2018 17:45 (CDT) PHONE: AGE: 88 N# [id number] GENDER: Male ENCOUNTER PHYSICIAN: Dr. Deandre Solis M.D. ADMISSION DIAGNOSIS: - Stroke 01 - Right Body (Left Brain) (01.2) ACUTE LEFT PARIETAL LOBE INFARCTION. EATING: Activity did not occur on this shift EATING - SCORE: 0-UNK GROOMING: Oral care Wash, rinse, and dry hands GROOMING - STEP 1: Does the patient require the assistance of a person or device, or need extra time when grooming? Yes. GROOMING - STEP 2: Does the patient require the assistance of a helper? Yes. GROOMING - STEP 3: How much assistance does the patient require from the helper? Only prior equipment preparation/set up from the helper GROOMING - SCORE: 5-SUP BATHING: Activity did not occur on this shift BATHING - SCORE: 0-UNK DRESSING - UPPER BODY: Patient is not dressing in public clothing ARTICLES SCORE Total number of steps: 0 DRESSING - UPPER BODY - SCORE: 0-UNK DRESSING - LOWER BODY: Patient is not dressing in public clothing ARTICLES SCORE Total number of steps: 0 DRESSING - LOWER BODY - SCORE: 0-UNK TOILETING: TOILETING - STEP 1: Does the patient require the assistance of a person or device, or need extra time with toileting? Yes . TOILETING - STEP 2: Does the patient require the assistance of a helper? Yes. TOILETING - STEP 3: How much assistance does the patient require from the helper? Only supervision TOILETING - SCORE: 5-SUP BLADDER MANAGEMENT: BLADDER MANAGEMENT - STEP 1: Does the patient control the bladder completely and intentionally without equipment or devices or med ications, and is always continent? No. BLADDER MANAGEMENT - STEP 2: Does the patient require the assistance of a helper? Yes. BLADDER MANAGEMENT - STEP 3: How much assistance does the patient require from the helper? Only supervision, stand-by, cuing, or c oaxing BLADDER MANAGEMENT - SCORE: 5-SUP BOWEL MANAGEMENT: BOWEL MANAGEMENT - STEP 1: Does the patient control bowels completely and intentionally without equipment devices or medications AND is always continent? No. BOWEL MANAGEMENT - STEP 2: Does the patient require the assistance of a helper? No, patient requires medication for control such as stool softeners, suppositories, laxatives, enemas, or OTC medications BOWEL MANAGEMENT - SCORE: 6-CATHY TRANSFERS: BED, CHAIR, WHEELCHAIR: TRANSFERS: BED, CHAIR, WHEELCHAIR - STEP 1: Does the patient require assistance of a person or device, or need extra time with bed, chair, or whe elchair transfers? Yes. TRANSFERS: BED, CHAIR, WHEELCHAIR - STEP 2: Does the patient require the assistance of a helper? Yes. TRANSFERS: BED, CHAIR, WHEELCHAIR - STEP 3: How much assistance does the patient require from the helper? Steadying/guiding assistance TRANSFERS: BED, CHAIR, WHEELCHAIR - SCORE: 4-MIN TRANSFERS: TOILET: TRANSFERS: TOILET - STEP 1: Does the patient require the assistance of a person or device, or need extra time with toilet transfe rs? Yes. TRANSFERS: TOILET - STEP 2: Does the patient require the assistance of a helper? Yes. TRANSFERS: TOILET - STEP 3: How much assistance does the patient require from the helper? Only supervision, cuing, coaxing, OR he lp to set out transfer equipment or to lock brakes and/or lift foot rests TRANSFERS: TOILET - SCORE: 5-SUP TRANSFERS: SHOWER: Activity did not occur on this shift TRANSFERS: SHOWER - SCORE: 0-UNK TRANSFERS: TUB: Activity did not occur on this shift TRANSFERS: TUB - SCORE: 0-UNK LOCOMOTION: WALK: Activity did not occur on this shift LOCOMOTION: WALK - SCORE: 0-UNK LOCOMOTION: WHEELCHAIR: Activity did not occur on this shift LOCOMOTION: WHEELCHAIR - SCORE: 0-UNK COMPREHENSION: COMPREHENSION: TYPE: Both COMPREHENSION - STEP 1: Does the patient require help from a person or device, or need extra time to understand complex and a bstract ideas (such as current events, finances, discharge planning, medical issues, relationships, e tc)? Yes. COMPREHENSION - STEP 2: Does the patient require help to understand questions or statements about basic needs or ideas (such as hunger, thirst, sleep, safety, daily schedule, room location, or discomfort) half or more of the t ezio? No. COMPREHENSION - STEP 3: How often does the patient need help to understand directions and conversation about basic needs? 10% - 24% of the time COMPREHENSION - SCORE: 4-MIN EXPRESSION EXPRESSION: TYPE: Both EXPRESSION - STEP 1: Does the patient require help from a person or device, or need extra time expressing complex and abst ract ideas (such as current events, finances, discharge planning, medical issues, relationships, etc) ? Yes. EXPRESSION - STEP 2: Does the patient require help to express basic necessities or ideas (such as hunger, thirst, sleep, s afety, daily schedule, room location, or discomfort) half or more of the time? No. EXPRESSION - STEP 3: How often does the patient need help to express directions and conversation about basic needs? 10-24% of the time EXPRESSION - SCORE: 4-MIN SOCIAL INTERACTION: SOCIAL INTERACTION - STEP 1: Does the patient require a helper to interact with others in social and therapeutic situations? No. SOCIAL INTERACTION - STEP 2: Does the patient need extra time in social situations, OR does s/he interact with staff, other patien ts, and family members ONLY in structured environments, OR does s/he require medication for social in teraction? Yes, patient needs extra time SOCIAL INTERACTION - SCORE: 6-CATHY PROBLEM SOLVING: PROBLEM SOLVING - STEP 1: Does the patient need help from a person or device, or need extra time to solve complex problems such as managing a checking account or confronting interpersonal problems? Yes. PROBLEM SOLVING - STEP 2: Does the patient solve basic routine problems half or more of the time? Yes. PROBLEM SOLVING - STEP 3: How often does the patient need help to solve basic routine problems? 10%-24% of the time PROBLEM SOLVING - SCORE: 4-MIN MEMORY: MEMORY - STEP 1: Does the patient need help from a person or device, or need extra time to remember frequently encount ered people, daily routines, and executing requests? Yes. MEMORY - STEP 2: How often does the patient need help to remember frequently encountered people, daily routines, and e xecuting requests? 25% - 49% of the time MEMORY - SCORE: 3-MOD SIGNATURE PANEL: The following modified sections: Eating - Score, Grooming - Score, Dressing - Upper Body - Score, [place] ssing - Lower Body - Score, Toileting - Score, Bladder Management - Score, Bowel Management - Score, Transfers: Bed, Chair, Wheelchair - Score, Transfers: Toilet - Score, Transfers: Shower - Score, [place] sfers: Tub - Score, Locomotion: Walk - Score, Locomotion: Wheelchair - Score, Comprehension - Score, Expression - Score, Social Interaction - Score, Problem Solving - Score, Memory - Score were [electro nically] signed by Carmen Caal CNA on ThuSep 09 2018 02:16:52 GMT-0500 ([place] Daylight Time)
[2018-09-09 06:15] LABS: Absolute Lymphocytes (CBC) 1.2 K/uL (0.7-4.9); Absolute Monocytes 0.6 K/uL (0.1-1.3); Absolute Neutrophil 3.3 K/uL (1.8-8.0); Eosinophils % 4.3 % (0-4.4); Hematocrit 28.8 % (39.6-49.0); Lymphocytes % 21.6 % (15.3-44.8); MPV 7.2 fL (7.6-11.3); RBC Red Blood Cell Count 3.18 M/uL (4.33-5.43)
[2018-09-09 06:38] LABS: Albumin 2.5 g/dL (3.4-5.0); Potassium 5.1 mmol/L (3.5-5.1); Prealbumin 11.9 mg/dL (20-40)
[2018-09-09] MEDS: PANTOPRAZOLE 40MG TABLET PO SCH (07:15)
[2018-09-09] MEDS: HEPARIN 5000 UNIT/ML 1 ML VIAL SQ SCH (07:15)
[2018-09-09] MEDS: CARVEDILOL 6.25 MG TAB PO SCH ×2 (08:00→20:44)
[2018-09-09] MEDS: LISINOPRIL 10 MG TAB PO SCH (08:00)
[2018-09-09] MEDS: FOLIC ACID 1 MG TABLET PO SCH (08:10)
[2018-09-09] MEDS: MULTIVITAMINS,THERAPEUT 1 TAB PO SCH (08:10)
[2018-09-09] MEDS: MAGNESIUM OXIDE 400 MG TAB PO SCH (08:11)
[2018-09-09] MEDS: FERROUS SULFATE 325 MG TAB PO SCH (08:11)
[2018-09-09] MEDS: OCUVITE (VIT A,C & E/LUTEIN/MINERAL) TABLET PO SCH (08:11)
[2018-09-09] MEDS: ASPIRIN EC 81 MG TAB PO SCH (08:11)
--- NOTE | 2018-09-09 12:13 | FAST ---
ENCOUNTER DATE AND TIME: 09/08/2018 08:00 (CDT) NAME JOSE ALEJANDRO ROSS DATE OF : 1930 DATE OF ADMISSION: 09/03/2018 17:45 (CDT) PHONE: AGE: 88 N# [id number] GENDER: Male ENCOUNTER PHYSICIAN: Dr. Deandre Solis M.D. ADMISSION DIAGNOSIS: - Stroke 01 - Right Body (Left Brain) (01.2) ACUTE LEFT PARIETAL LOBE INFARCTION. EATING: EATING - STEP 1: Does the patient require the assistance of a person or device, or need extra time when eating? No. EATING - SCORE: 7-IND GROOMING: Comb/brush hair Wash, rinse, and dry face Wash, rinse, and dry hands GROOMING - STEP 1: Does the patient require the assistance of a person or device, or need extra time when grooming? No. GROOMING - SCORE: 7-IND BATHING: Abdomen Buttocks Chest Left arm Left lower leg and foot Left upper leg Perineal area Right arm Right lower leg and foot Right upper leg BATHING - STEP 1: Does the patient require the assistance of a person or device, or need extra time when bathing? Yes. BATHING - STEP 2: Does the patient require the assistance of a helper? Yes. BATHING - STEP 3: How much assistance does the patient require from the helper? Only supervision, cuing, coaxing, instr uctions, encouragement BATHING - SCORE: 5-SUP DRESSING - UPPER BODY: T-shirt/pullover shirt (four steps) ARTICLES SCORE Total number of steps: 4 DRESSING - UPPER BODY - STEP 1: Does the patient require help from a person or device, or need extra time when dressing above the wood[address] st? Yes. DRESSING - UPPER BODY - STEP 2: Does the patient require the assistance of a helper? Yes. DRESSING - UPPER BODY - STEP 3: Does the helper touch the patient while dressing? No. DRESSING - UPPER BODY - SCORE: 5-SUP DRESSING - LOWER BODY: Elastic waist pants (three steps) Slip-on shoe - Left foot (one step) Slip-on shoe - Right foot (one step) Sock - Left foot (one step) Sock - Right foot (one step) Underwear (three steps) ARTICLES SCORE Total number of steps: 10 DRESSING - LOWER BODY - STEP 1: Does the patient require help from a person or device, or need extra time when dressing below the woody st? Yes. DRESSING - LOWER BODY - STEP 2: Does the patient require the assistance of a helper? Yes. DRESSING - LOWER BODY - STEP 3: Does the helper touch the patient while dressing? No. DRESSING - LOWER BODY - SCORE: 5-SUP TOILETING: TOILETING - STEP 1: Does the patient require the assistance of a person or device, or need extra time with toileting? No. TOILETING - SCORE: 7-IND BLADDER MANAGEMENT: Activity did not occur on this shift BLADDER MANAGEMENT - SCORE: 7-IND BOWEL MANAGEMENT: Activity did not occur on this shift BOWEL MANAGEMENT - SCORE: 7-IND TRANSFERS: BED, CHAIR, WHEELCHAIR: Activity did not occur on this shift TRANSFERS: BED, CHAIR, WHEELCHAIR - SCORE: 0-UNK TRANSFERS: TOILET: Activity did not occur on this shift TRANSFERS: TOILET - SCORE: 0-UNK TRANSFERS: SHOWER: TRANSFERS: SHOWER - STEP 1: Does the patient require the assistance of a person or device, or need extra time with shower transfe rs? Yes. TRANSFERS: SHOWER - STEP 2: Does the patient require the assistance of a helper? Yes. TRANSFERS: SHOWER - STEP 3: How much assistance does the patient require from the helper? Only supervision, cuing, coaxing, or he lp to set out transfer equipment or to lock brakes and/or lift foot rests TRANSFERS: SHOWER - SCORE: 5-SUP TRANSFERS: TUB: Activity did not occur on this shift TRANSFERS: TUB - SCORE: 0-UNK LOCOMOTION: WALK: Activity did not occur on this shift LOCOMOTION: WALK - SCORE: 0-UNK LOCOMOTION: WHEELCHAIR: Activity did not occur on this shift LOCOMOTION: WHEELCHAIR - SCORE: 0-UNK LOCOMOTION: STAIRS: Activity did not occur on this shift LOCOMOTION: STAIRS - SCORE: 0-UNK COMPREHENSION: COMPREHENSION: TYPE: Both COMPREHENSION - STEP 1: Does the patient require help from a person or device, or need extra time to understand complex and a bstract ideas (such as current events, finances, discharge planning, medical issues, relationships, e tc)? No. COMPREHENSION - STEP 2: Does the patient need extra time, require an assistive device (such as glasses for visual comprehensi on or a hearing aid for auditory comprehension) or does s/he have mild difficulty understanding compl ex and abstract information? Yes. COMPREHENSION - SCORE: 6-CATHY EXPRESSION EXPRESSION: TYPE: Both EXPRESSION - STEP 1: Does the patient require help from a person or device, or need extra time expressing complex and abst ract ideas (such as current events, finances, discharge planning, medical issues, relationships, etc) ? Yes. EXPRESSION - STEP 2: Does the patient require help to express basic necessities or ideas (such as hunger, thirst, sleep, s afety, daily schedule, room location, or discomfort) half or more of the time? No. EXPRESSION - STEP 3: How often does the patient need help to express directions and conversation about basic needs? 10-24% of the time EXPRESSION - SCORE: 4-MIN SOCIAL INTERACTION: SOCIAL INTERACTION - STEP 1: Does the patient require a helper to interact with others in social and therapeutic situations? Yes. SOCIAL INTERACTION - STEP 2: Does the patient interact appropriately half or more of the time? Yes. SOCIAL INTERACTION - STEP 3: How often does the patient need help to interact appropriately? Less than 10% of the time SOCIAL INTERACTION - SCORE: 5-SUP PROBLEM SOLVING: PROBLEM SOLVING - STEP 1: Does the patient need help from a person or device, or need extra time to solve complex problems such as managing a checking account or confronting interpersonal problems? Yes. PROBLEM SOLVING - STEP 2: Does the patient solve basic routine problems half or more of the time? Yes. PROBLEM SOLVING - STEP 3: How often does the patient need help to solve basic routine problems? Less than 10% of the time PROBLEM SOLVING - SCORE: 5-SUP MEMORY: MEMORY - STEP 1: Does the patient need help from a person or device, or need extra time to remember frequently encount ered people, daily routines, and executing requests? Yes. MEMORY - STEP 2: How often does the patient need help to remember frequently encountered people, daily routines, and e xecuting requests? Less than 10% of the time MEMORY - SCORE: 5-SUP SIGNATURE PANEL: The following modified sections: Eating - Score, Grooming - Score, Bathing - Score, Dressing - Upper Body - Score, Dressing - Lower Body - Score, Toileting - Score, Transfers: Bed, Chair, Wheelchair - S core, Transfers: Toilet - Score, Transfers: Tub - Score, Transfers: Shower - Score, Comprehension - S core, Expression - Score, Social Interaction - Score, Problem Solving - Score, Memory - Score were [e lectronically] signed by Shayy Mendoza OT on ThuSep 09 2018 12:12:44 GMT-0500 ([facility] Day[facility] T e[facility]io)
--- NOTE | 2018-09-09 13:49 | FAST ---
SHIFT START DATE/TIME: 09/09/2018 07:00 (CDT) SHIFT END DATE/TIME: 09/09/2018 19:00 (CDT) NAME JOSE ALEJANDRO ROSS DATE OF : 1930 DATE OF ADMISSION: 09/03/2018 17:45 (CDT) PHONE: AGE: 88 SSN# [id number] GENDER: Male ENCOUNTER PHYSICIAN: Dr. Deandre Solis M.D. ADMISSION DIAGNOSIS: - Stroke 01 - Right Body (Left Brain) (01.2) ACUTE LEFT PARIETAL LOBE INFARCTION. EATING: EATING - STEP 1: Does the patient require the assistance of a person or device, or need extra time when eating? Yes. EATING - STEP 2: Does the patient require the assistance of a helper? No, patient only requires an assistive device, O R s/he takes more than reasonable time to eat, OR there is a safety concern, OR s/he requires modifie d food consistency EATING - SCORE: 6-CATHY GROOMING: Activity did not occur on this shift GROOMING - SCORE: 0-UNK BATHING: Activity did not occur on this shift BATHING - SCORE: 0-UNK DRESSING - UPPER BODY: Activity did not occur on this shift ARTICLES SCORE Total number of steps: 0 DRESSING - UPPER BODY - SCORE: 0-UNK DRESSING - LOWER BODY: Activity did not occur on this shift ARTICLES SCORE Total number of steps: 0 DRESSING - LOWER BODY - SCORE: 0-UNK TOILETING: TOILETING - STEP 1: Does the patient require the assistance of a person or device, or need extra time with toileting? Yes . TOILETING - STEP 2: Does the patient require the assistance of a helper? Yes. TOILETING - STEP 3: How much assistance does the patient require from the helper? Hands-on assistance from the helper TOILETING - STEP 4: Of the 3 tasks: 1) Adjusting clothing prior to use, 2) Cleansing of perineal area, 3) Adjusting clot dileep after use; How many tasks does the patient perform WITHOUT assistance of the helper? Two tasks TOILETING - SCORE: 3-MOD BLADDER MANAGEMENT: BLADDER MANAGEMENT - STEP 1: Does the patient control the bladder completely and intentionally without equipment or devices or med ications, and is always continent? No. BLADDER MANAGEMENT - STEP 2: Does the patient require the assistance of a helper? No, patient only requires extra time BLADDER MANAGEMENT - SCORE: 6-CATHY BLADDER MANAGEMENT - FREQUENCY OF ACCIDENTS: BLADDER MANAGEMENT(FA) - STEP 1: How many accidents has the patient had during the current shift? 0 BOWEL MANAGEMENT: Activity did not occur on this shift BOWEL MANAGEMENT - SCORE: 7-IND BOWEL MANAGEMENT - FREQUENCY OF ACCIDENTS: BOWEL MANAGEMENT(FA) - STEP 1: How many accidents has the patient had during the current shift? 0 TRANSFERS: BED, CHAIR, WHEELCHAIR: TRANSFERS: BED, CHAIR, WHEELCHAIR - STEP 1: Does the patient require assistance of a person or device, or need extra time with bed, chair, or whe elchair transfers? Yes. TRANSFERS: BED, CHAIR, WHEELCHAIR - STEP 2: Does the patient require the assistance of a helper? Yes. TRANSFERS: BED, CHAIR, WHEELCHAIR - STEP 3: How much assistance does the patient require from the helper? Steadying/guiding assistance TRANSFERS: BED, CHAIR, WHEELCHAIR - SCORE: 4-MIN TRANSFERS: TOILET: TRANSFERS: TOILET - STEP 1: Does the patient require the assistance of a person or device, or need extra time with toilet transfe rs? Yes. TRANSFERS: TOILET - STEP 2: Does the patient require the assistance of a helper? Yes. TRANSFERS: TOILET - STEP 3: How much assistance does the patient require from the helper? Only supervision, cuing, coaxing, OR he lp to set out transfer equipment or to lock brakes and/or lift foot rests TRANSFERS: TOILET - SCORE: 5-SUP TRANSFERS: SHOWER: Activity did not occur on this shift TRANSFERS: SHOWER - SCORE: 0-UNK TRANSFERS: TUB: Activity did not occur on this shift TRANSFERS: TUB - SCORE: 0-UNK LOCOMOTION: WALK: LOCOMOTION: WALK - STEP 1: Does the patient need help from a person or device, or need extra time to walk 150 feet? Yes. LOCOMOTION: WALK - STEP 2: How much assistance does the patient require to walk a minimum of 150 feet? Only incidental help such as contact guarding or steadying LOCOMOTION: WALK - SCORE: 4-MIN LOCOMOTION: WHEELCHAIR: Activity did not occur on this shift LOCOMOTION: WHEELCHAIR - SCORE: 0-UNK COMPREHENSION: COMPREHENSION: TYPE: Both COMPREHENSION - STEP 1: Does the patient require help from a person or device, or need extra time to understand complex and a bstract ideas (such as current events, finances, discharge planning, medical issues, relationships, e tc)? Yes. COMPREHENSION - STEP 2: Does the patient require help to understand questions or statements about basic needs or ideas (such as hunger, thirst, sleep, safety, daily schedule, room location, or discomfort) half or more of the t ezio? No. COMPREHENSION - STEP 3: How often does the patient need help to understand directions and conversation about basic needs? 10% - 24% of the time COMPREHENSION - SCORE: 4-MIN EXPRESSION EXPRESSION: TYPE: Both EXPRESSION - STEP 1: Does the patient require help from a person or device, or need extra time expressing complex and abst ract ideas (such as current events, finances, discharge planning, medical issues, relationships, etc) ? Yes. EXPRESSION - STEP 2: Does the patient require help to express basic necessities or ideas (such as hunger, thirst, sleep, s afety, daily schedule, room location, or discomfort) half or more of the time? No. EXPRESSION - STEP 3: How often does the patient need help to express directions and conversation about basic needs? 25-49% of the time EXPRESSION - SCORE: 3-MOD SOCIAL INTERACTION: SOCIAL INTERACTION - STEP 1: Does the patient require a helper to interact with others in social and therapeutic situations? No. SOCIAL INTERACTION - STEP 2: Does the patient need extra time in social situations, OR does s/he interact with staff, other patien ts, and family members ONLY in structured environments, OR does s/he require medication for social in teraction? Yes, patient needs extra time SOCIAL INTERACTION - SCORE: 6-CATHY PROBLEM SOLVING: PROBLEM SOLVING - STEP 1: Does the patient need help from a person or device, or need extra time to solve complex problems such as managing a checking account or confronting interpersonal problems? Yes. PROBLEM SOLVING - STEP 2: Does the patient solve basic routine problems half or more of the time? Yes. PROBLEM SOLVING - STEP 3: How often does the patient need help to solve basic routine problems? 25%-49% of the time PROBLEM SOLVING - SCORE: 3-MOD MEMORY: MEMORY - STEP 1: Does the patient need help from a person or device, or need extra time to remember frequently encount ered people, daily routines, and executing requests? Yes. MEMORY - STEP 2: How often does the patient need help to remember frequently encountered people, daily routines, and e xecuting requests? 25% - 49% of the time MEMORY - SCORE: 3-MOD SIGNATURE PANEL: The following modified sections: Eating - Score, Grooming - Score, Bathing - Score, Dressing - Upper Body - Score, Dressing - Lower Body - Score, Toileting - Score, Bladder Management - Score, Bowel Man agement - Score, Transfers: Bed, Chair, Wheelchair - Score, Transfers: Toilet - Score, Transfers: Rupa wer - Score, Transfers: Tub - Score, Locomotion: Walk - Score, Locomotion: Wheelchair - Score, Compre hension - Score, Expression - Score, Social Interaction - Score, Problem Solving - Score, Memory - Sc ore were [electronically] signed by Ruben ManzoNCande on ThuSep 09 2018 13:48:54 T-0500 ([facility])
--- NOTE | 2018-09-09 13:49 | P.PN ---
Subjective Date of Service: 09/09/18 Chief Complaint: Painful toenails and left heel Subjective: Improving participating in PT/OT HD MWF Bp on the lower side , will cont to monitor and consider reducing lisinopril or Coreg Physical Examination - Vital Signs Temperature: 97.4 F Blood Pressure: 104/51 Pulse: 59 Respirations: 16 Pulse Ox (%): 98 - Physical Exam General: In no apparent distress, Oriented x3 HEENT: Atraumatic Neck: Supple, Without JVD or thyroid abnormality Respiratory: Clear to auscultation bilaterally, Normal air movement Cardiovascular: No edema, Regular rate/rhythm Gastrointestinal: Normal bowel sounds - Studies Laboratory Data (last 24 hrs) 09/09/18 05:51: Sodium 136, Potassium 5.1, BUN 38 H, Creatinine 4.30 H D, Glucose 77 09/09/18 05:51: WBC 5.4, Hgb 9.4 L D, Hct 28.8 L D, Plt Count 212 D Assessment And Plan - Current Problems (Diagnosis) (1) Acute CVA (cerebrovascular accident) Onset Date: 09/01/18 Current Visit: No Status: Acute (2) ESRD on dialysis Onset Date: 10/12/17 Current Visit: No Status: Chronic - Plan End-stage renal disease. Cont HD MWF renal dose meds Anemia. completed IV iron We will hold on Epogen right now due to stroke. Metabolic bone disease. Phso wnl , not on binders Cerebrovascular accident. Continue PT/OT. HTn Bp on the lower normal side will consider reducing Coreg and lisinopril dose if still on the lo side Physician Review: Patient Assessed, Agree with Above Assessment and Plan
--- NOTE | 2018-09-09 15:07 | FAST ---
ENCOUNTER DATE AND TIME: 09/09/2018 08:00 (CDT) NAME JOSE ALEJANDRO ROSS DATE OF : 1930 DATE OF ADMISSION: 09/03/2018 17:45 (CDT) PHONE: AGE: 88 N# [id number] GENDER: Male ENCOUNTER PHYSICIAN: Dr. Deandre Solis M.D. ADMISSION DIAGNOSIS: - Stroke 01 - Right Body (Left Brain) (01.2) ACUTE LEFT PARIETAL LOBE INFARCTION. EATING: Activity did not occur on this shift EATING - SCORE: 0-UNK GROOMING: Activity did not occur on this shift GROOMING - SCORE: 0-UNK BATHING: Activity did not occur on this shift BATHING - SCORE: 0-UNK DRESSING - UPPER BODY: Activity did not occur on this shift Patient is not dressing in public clothing ARTICLES SCORE Total number of steps: 0 DRESSING - UPPER BODY - SCORE: 0-UNK DRESSING - LOWER BODY: Activity did not occur on this shift Patient is not dressing in public clothing ARTICLES SCORE Total number of steps: 0 DRESSING - LOWER BODY - SCORE: 0-UNK TOILETING: Activity did not occur on this shift TOILETING - SCORE: 0-UNK BLADDER MANAGEMENT: Activity did not occur on this shift BLADDER MANAGEMENT - SCORE: 7-IND BOWEL MANAGEMENT: Activity did not occur on this shift BOWEL MANAGEMENT - SCORE: 7-IND TRANSFERS: BED, CHAIR, WHEELCHAIR: TRANSFERS: BED, CHAIR, WHEELCHAIR - STEP 1: Does the patient require assistance of a person or device, or need extra time with bed, chair, or whe elchair transfers? Yes. TRANSFERS: BED, CHAIR, WHEELCHAIR - STEP 2: Does the patient require the assistance of a helper? Yes. TRANSFERS: BED, CHAIR, WHEELCHAIR - STEP 3: How much assistance does the patient require from the helper? Only supervision TRANSFERS: BED, CHAIR, WHEELCHAIR - SCORE: 5-SUP TRANSFERS: TOILET: Activity did not occur on this shift TRANSFERS: TOILET - SCORE: 0-UNK TRANSFERS: SHOWER: Activity did not occur on this shift TRANSFERS: SHOWER - SCORE: 0-UNK TRANSFERS: TUB: Activity did not occur on this shift TRANSFERS: TUB - SCORE: 0-UNK LOCOMOTION: WALK: LOCOMOTION: WALK - STEP 1: Does the patient need help from a person or device, or need extra time to walk 150 feet? Yes. LOCOMOTION: WALK - STEP 2: How much assistance does the patient require to walk a minimum of 150 feet? Only supervision, cuing, or coaxing LOCOMOTION: WALK - SCORE: 5-SUP LOCOMOTION: WHEELCHAIR: Activity did not occur on this shift LOCOMOTION: WHEELCHAIR - SCORE: 0-UNK LOCOMOTION: STAIRS: Activity did not occur on this shift LOCOMOTION: STAIRS - SCORE: 0-UNK COMPREHENSION: COMPREHENSION - SCORE: 0-UNK EXPRESSION EXPRESSION - SCORE: 0-UNK SOCIAL INTERACTION: SOCIAL INTERACTION - SCORE: 0-UNK PROBLEM SOLVING: PROBLEM SOLVING - SCORE: 0-UNK MEMORY: MEMORY - SCORE: 0-UNK SIGNATURE PANEL: The following modified sections: Transfers: Bed, Chair, Wheelchair - Score, Transfers: Toilet - Score , Locomotion: Walk - Score, Locomotion: Wheelchair - Score, Locomotion: Stairs - Score were [electron ically] signed by Shorty Fernandez PT on ThuSep 09 2018 15:06:42 T-0500 (Central Daylight Time)
[2018-09-09 19:02] LABS: HBsAG Nonreactive (Nonreactive)
[2018-09-09] MEDS: GABAPENTIN 100 MG CAP PO SCH (20:44)
[2018-09-09] MEDS: MELATONIN 3 MG TABLET PO SCH (20:44)
[2018-09-09] MEDS: DOCUSATE NA/SENNA CONC 1 TAB PO SCH (20:45)
[2018-09-09] MEDS: ATORVASTATIN 20 MG TAB PO SCH (20:45)
--- NOTE | 2018-09-10 00:49 | FAST ---
SHIFT START DATE/TIME: 09/09/2018 19:00 (CDT) SHIFT END DATE/TIME: 09/10/2018 07:00 (CDT) NAME JOSE ALEJANDRO ROSS DATE OF : 1930 DATE OF ADMISSION: 09/03/2018 17:45 (CDT) PHONE: AGE: 88 SSN# [id number] GENDER: Male ENCOUNTER PHYSICIAN: Dr. Deandre Solis M.D. ADMISSION DIAGNOSIS: - Stroke 01 - Right Body (Left Brain) (01.2) ACUTE LEFT PARIETAL LOBE INFARCTION. EATING: Activity did not occur on this shift EATING - SCORE: 0-UNK GROOMING: Oral care Wash, rinse, and dry hands GROOMING - STEP 1: Does the patient require the assistance of a person or device, or need extra time when grooming? Yes. GROOMING - STEP 2: Does the patient require the assistance of a helper? Yes. GROOMING - STEP 3: How much assistance does the patient require from the helper? Only prior equipment preparation/set up from the helper GROOMING - SCORE: 5-SUP BATHING: Activity did not occur on this shift BATHING - SCORE: 0-UNK DRESSING - UPPER BODY: Patient is not dressing in public clothing ARTICLES SCORE Total number of steps: 0 DRESSING - UPPER BODY - SCORE: 0-UNK DRESSING - LOWER BODY: Patient is not dressing in public clothing ARTICLES SCORE Total number of steps: 0 DRESSING - LOWER BODY - SCORE: 0-UNK TOILETING: TOILETING - STEP 1: Does the patient require the assistance of a person or device, or need extra time with toileting? Yes . TOILETING - STEP 2: Does the patient require the assistance of a helper? Yes. TOILETING - STEP 3: How much assistance does the patient require from the helper? Only supervision TOILETING - SCORE: 5-SUP BLADDER MANAGEMENT: BLADDER MANAGEMENT - STEP 1: Does the patient control the bladder completely and intentionally without equipment or devices or med ications, and is always continent? No. BLADDER MANAGEMENT - STEP 2: Does the patient require the assistance of a helper? No, patient only requires extra time BLADDER MANAGEMENT - SCORE: 6-CATHY BOWEL MANAGEMENT: BOWEL MANAGEMENT - STEP 1: Does the patient control bowels completely and intentionally without equipment devices or medications AND is always continent? No. BOWEL MANAGEMENT - STEP 2: Does the patient require the assistance of a helper? No, patient requires medication for control such as stool softeners, suppositories, laxatives, enemas, or OTC medications BOWEL MANAGEMENT - SCORE: 6-CATHY TRANSFERS: BED, CHAIR, WHEELCHAIR: TRANSFERS: BED, CHAIR, WHEELCHAIR - STEP 1: Does the patient require assistance of a person or device, or need extra time with bed, chair, or whe elchair transfers? Yes. TRANSFERS: BED, CHAIR, WHEELCHAIR - STEP 2: Does the patient require the assistance of a helper? Yes. TRANSFERS: BED, CHAIR, WHEELCHAIR - STEP 3: How much assistance does the patient require from the helper? Steadying/guiding assistance TRANSFERS: BED, CHAIR, WHEELCHAIR - SCORE: 4-MIN TRANSFERS: TOILET: TRANSFERS: TOILET - STEP 1: Does the patient require the assistance of a person or device, or need extra time with toilet transfe rs? Yes. TRANSFERS: TOILET - STEP 2: Does the patient require the assistance of a helper? Yes. TRANSFERS: TOILET - STEP 3: How much assistance does the patient require from the helper? Only supervision, cuing, coaxing, OR he lp to set out transfer equipment or to lock brakes and/or lift foot rests TRANSFERS: TOILET - SCORE: 5-SUP TRANSFERS: SHOWER: Activity did not occur on this shift TRANSFERS: SHOWER - SCORE: 0-UNK TRANSFERS: TUB: Activity did not occur on this shift TRANSFERS: TUB - SCORE: 0-UNK LOCOMOTION: WALK: Activity did not occur on this shift LOCOMOTION: WALK - SCORE: 0-UNK LOCOMOTION: WHEELCHAIR: Activity did not occur on this shift LOCOMOTION: WHEELCHAIR - SCORE: 0-UNK COMPREHENSION: COMPREHENSION: TYPE: Both COMPREHENSION - STEP 1: Does the patient require help from a person or device, or need extra time to understand complex and a bstract ideas (such as current events, finances, discharge planning, medical issues, relationships, e tc)? Yes. COMPREHENSION - STEP 2: Does the patient require help to understand questions or statements about basic needs or ideas (such as hunger, thirst, sleep, safety, daily schedule, room location, or discomfort) half or more of the t ezio? No. COMPREHENSION - STEP 3: How often does the patient need help to understand directions and conversation about basic needs? 10% - 24% of the time COMPREHENSION - SCORE: 4-MIN EXPRESSION EXPRESSION: TYPE: Both EXPRESSION - STEP 1: Does the patient require help from a person or device, or need extra time expressing complex and abst ract ideas (such as current events, finances, discharge planning, medical issues, relationships, etc) ? Yes. EXPRESSION - STEP 2: Does the patient require help to express basic necessities or ideas (such as hunger, thirst, sleep, s afety, daily schedule, room location, or discomfort) half or more of the time? No. EXPRESSION - STEP 3: How often does the patient need help to express directions and conversation about basic needs? 10-24% of the time EXPRESSION - SCORE: 4-MIN SOCIAL INTERACTION: SOCIAL INTERACTION - STEP 1: Does the patient require a helper to interact with others in social and therapeutic situations? No. SOCIAL INTERACTION - STEP 2: Does the patient need extra time in social situations, OR does s/he interact with staff, other patien ts, and family members ONLY in structured environments, OR does s/he require medication for social in teraction? Yes, patient needs extra time SOCIAL INTERACTION - SCORE: 6-CATHY PROBLEM SOLVING: PROBLEM SOLVING - STEP 1: Does the patient need help from a person or device, or need extra time to solve complex problems such as managing a checking account or confronting interpersonal problems? Yes. PROBLEM SOLVING - STEP 2: Does the patient solve basic routine problems half or more of the time? Yes. PROBLEM SOLVING - STEP 3: How often does the patient need help to solve basic routine problems? 10%-24% of the time PROBLEM SOLVING - SCORE: 4-MIN MEMORY: MEMORY - STEP 1: Does the patient need help from a person or device, or need extra time to remember frequently encount ered people, daily routines, and executing requests? No. MEMORY - STEP 2: Does the patient have slight difficulty recognizing frequently encountered people, daily routines, or executing requests without the need for repetition or using self-initiated or environmental cues to remember? Yes. MEMORY - SCORE: 6-CATHY SIGNATURE PANEL: The following modified sections: Eating - Score, Grooming - Score, Dressing - Upper Body - Score, Kyrie ssing - Lower Body - Score, Toileting - Score, Bladder Management - Score, Bowel Management - Score, Transfers: Bed, Chair, Wheelchair - Score, Transfers: Toilet - Score, Transfers: Shower - Score, [place] sfers: Tub - Score, Locomotion: Walk - Score, Locomotion: Wheelchair - Score, Comprehension - Score, Expression - Score, Social Interaction - Score, Problem Solving - Score, Memory - Score were [electro nically] signed by Carmen Caal CNA on ThuSep 10 2018 00:47:59 GMT-0500 (Central Daylight Time)
[2018-09-10] MEDS: ACETAMINOPHEN 500 MG TAB PO PRN ×2 (01:17→08:34)
[2018-09-10] MEDS: PANTOPRAZOLE 40MG TABLET PO SCH (07:21)
[2018-09-10] MEDS: CARVEDILOL 6.25 MG TAB PO SCH ×2 (08:00→21:07)
[2018-09-10] MEDS: LISINOPRIL 10 MG TAB PO SCH (08:00)
[2018-09-10] MEDS: ASPIRIN EC 81 MG TAB PO SCH (08:30)
[2018-09-10] MEDS: DULOXETINE 20 MG CAP PO SCH (08:30)
[2018-09-10] MEDS: OCUVITE (VIT A,C & E/LUTEIN/MINERAL) TABLET PO SCH (08:30)
[2018-09-10] MEDS: MULTIVITAMINS,THERAPEUT 1 TAB PO SCH (08:30)
[2018-09-10] MEDS: HEPARIN 5000 UNIT/ML 1 ML VIAL SQ SCH (08:31)
[2018-09-10] MEDS: MAGNESIUM OXIDE 400 MG TAB PO SCH (08:31)
[2018-09-10] MEDS: FERROUS SULFATE 325 MG TAB PO SCH (08:31)
[2018-09-10] MEDS: FOLIC ACID 1 MG TABLET PO SCH (08:32)
[2018-09-10] MEDS: MECLIZINE HCL 12.5 MG TAB PO PRN (09:21)
--- NOTE | 2018-09-10 09:27 | FAST ---
SHIFT START DATE/TIME: 09/10/2018 07:00 (CDT) SHIFT END DATE/TIME: 09/10/2018 19:00 (CDT) NAME JOSE ALEJANDRO ROSS DATE OF : 1930 DATE OF ADMISSION: 09/03/2018 17:45 (CDT) PHONE: AGE: 88 SSN# [id number] GENDER: Male ENCOUNTER PHYSICIAN: Dr. Deandre Solis M.D. ADMISSION DIAGNOSIS: - Stroke 01 - Right Body (Left Brain) (01.2) ACUTE LEFT PARIETAL LOBE INFARCTION. EATING: EATING - STEP 1: Does the patient require the assistance of a person or device, or need extra time when eating? Yes. EATING - STEP 2: Does the patient require the assistance of a helper? No, patient only requires an assistive device, O R s/he takes more than reasonable time to eat, OR there is a safety concern, OR s/he requires modifie d food consistency EATING - SCORE: 6-CATHY GROOMING: Activity did not occur on this shift GROOMING - SCORE: 0-UNK BATHING: Activity did not occur on this shift BATHING - SCORE: 0-UNK DRESSING - UPPER BODY: Activity did not occur on this shift ARTICLES SCORE Total number of steps: 0 DRESSING - UPPER BODY - SCORE: 0-UNK DRESSING - LOWER BODY: Elastic waist pants (three steps) Underwear (three steps) ARTICLES SCORE Total number of steps: 6 DRESSING - LOWER BODY - STEP 1: Does the patient require help from a person or device, or need extra time when dressing below the woody st? Yes. DRESSING - LOWER BODY - STEP 2: Does the patient require the assistance of a helper? Yes. DRESSING - LOWER BODY - STEP 3: Does the helper touch the patient while dressing? Yes. DRESSING - LOWER BODY - STEP 4: How many of the total steps does the patient complete on his/her own? 5 DRESSING - LOWER BODY - SCORE: 4-MIN TOILETING: TOILETING - STEP 1: Does the patient require the assistance of a person or device, or need extra time with toileting? Yes . TOILETING - STEP 2: Does the patient require the assistance of a helper? No. TOILETING - SCORE: 6-CATHY BLADDER MANAGEMENT: BLADDER MANAGEMENT - STEP 1: Does the patient control the bladder completely and intentionally without equipment or devices or med ications, and is always continent? Yes. BLADDER MANAGEMENT - SCORE: 7-IND BLADDER MANAGEMENT - FREQUENCY OF ACCIDENTS: BLADDER MANAGEMENT(FA) - STEP 1: How many accidents has the patient had during the current shift? 0 BOWEL MANAGEMENT: BOWEL MANAGEMENT - STEP 1: Does the patient control bowels completely and intentionally without equipment devices or medications AND is always continent? Yes. BOWEL MANAGEMENT - SCORE: 7-IND BOWEL MANAGEMENT - FREQUENCY OF ACCIDENTS: BOWEL MANAGEMENT(FA) - STEP 1: How many accidents has the patient had during the current shift? 0 TRANSFERS: BED, CHAIR, WHEELCHAIR: TRANSFERS: BED, CHAIR, WHEELCHAIR - STEP 1: Does the patient require assistance of a person or device, or need extra time with bed, chair, or whe elchair transfers? Yes. TRANSFERS: BED, CHAIR, WHEELCHAIR - STEP 2: Does the patient require the assistance of a helper? Yes. TRANSFERS: BED, CHAIR, WHEELCHAIR - STEP 3: How much assistance does the patient require from the helper? Steadying/guiding assistance TRANSFERS: BED, CHAIR, WHEELCHAIR - SCORE: 4-MIN TRANSFERS: TOILET: TRANSFERS: TOILET - STEP 1: Does the patient require the assistance of a person or device, or need extra time with toilet transfe rs? Yes. TRANSFERS: TOILET - STEP 2: Does the patient require the assistance of a helper? Yes. TRANSFERS: TOILET - STEP 3: How much assistance does the patient require from the helper? Patient performs half or more of the tr ansferring tasks TRANSFERS: TOILET - STEP 4: Does the patient need only incidental help such as contact guard or steadying during toilet transfer? Yes. TRANSFERS: TOILET - SCORE: 4-MIN TRANSFERS: SHOWER: Activity did not occur on this shift TRANSFERS: SHOWER - SCORE: 0-UNK TRANSFERS: TUB: Activity did not occur on this shift TRANSFERS: TUB - SCORE: 0-UNK LOCOMOTION: WALK: Activity did not occur on this shift LOCOMOTION: WALK - SCORE: 0-UNK LOCOMOTION: WHEELCHAIR: Activity did not occur on this shift LOCOMOTION: WHEELCHAIR - SCORE: 0-UNK COMPREHENSION: COMPREHENSION - SCORE: 0-UNK EXPRESSION EXPRESSION - SCORE: 0-UNK SOCIAL INTERACTION: SOCIAL INTERACTION - SCORE: 0-UNK PROBLEM SOLVING: PROBLEM SOLVING - SCORE: 0-UNK MEMORY: MEMORY - SCORE: 0-UNK SIGNATURE PANEL: The following modified sections: Eating - Score, Grooming - Score, Bathing - Score, Dressing - Upper Body - Score, Dressing - Lower Body - Score, Toileting - Score, Bladder Management - Score, Bowel Man agement - Score, Transfers: Bed, Chair, Wheelchair - Score, Transfers: Toilet - Score, Transfers: Rupa wer - Score, Transfers: Tub - Score, Locomotion: Walk - Score, Locomotion: Wheelchair - Score, Compre hension - Score, Expression - Score, Social Interaction - Score, Problem Solving - Score, Memory - Sc ore were [electronically] signed by Evelyn Stout CNA on ThuSep 10 2018 09:26:37 T-0500 (Centra l Daylight Time)
--- NOTE | 2018-09-10 09:27 | P.RH.PN ---
Estimated Length of Stay: 13 Expected Discharge Date: 09/15/18 Discharge Disposition Plan: Home Family Support: Yes Residential Goal: Mobility, Transfers, Self Care Vital Signs: Last Vital Signs Temp 97.2 F 09/10/18 07:20 Pulse 61 09/10/18 07:20 Resp 16 09/10/18 07:20 BP 111/56 L 09/10/18 07:20 Pulse Ox 95 09/10/18 07:20 Laboratory: Laboratory Last Values WBC 5.4 K/uL (4.3-10.9) 09/09/18 05:51 RBC 3.18 M/uL (4.33-5.43) L D 09/09/18 05:51 Hgb 9.4 g/dL (13.6-17.9) L D 09/09/18 05:51 Hct 28.8 % (39.6-49.0) L D 09/09/18 05:51 MCV 90.7 fL (80-100) 09/09/18 05:51 MCH 29.4 pg (27.0-35.0) 09/09/18 05:51 MCHC 32.4 g/dL (32.0-36.0) 09/09/18 05:51 RDW 17.2 % (12.1-15.2) H 09/09/18 05:51 Plt Count 212 K/uL (152-406) D 09/09/18 05:51 MPV 7.2 fL (7.6-11.3) L 09/09/18 05:51 Neutrophils % 62.1 % (41.7-73.7) 09/09/18 05:51 Lymphocytes % 21.6 % (15.3-44.8) 09/09/18 05:51 Monocytes % 11.0 % (3.3-12.3) 09/09/18 05:51 Eosinophils % 4.3 % (0-4.4) 09/09/18 05:51 Basophils % 1.0 % (0-1.3) 09/09/18 05:51 Absolute Neutrophils 3.3 K/uL (1.8-8.0) 09/09/18 05:51 Absolute Lymphocytes 1.2 K/uL (0.7-4.9) 09/09/18 05:51 Absolute Monocytes 0.6 K/uL (0.1-1.3) 09/09/18 05:51 Absolute Eosinophils 0.2 K/uL (0-0.5) 09/09/18 05:51 Absolute Basophils 0.1 K/uL (0-0.5) 09/09/18 05:51 Sodium 136 mmol/L (136-145) 09/09/18 05:51 Potassium 5.1 mmol/L (3.5-5.1) 09/09/18 05:51 Chloride 99 mmol/L (98-107) 09/09/18 05:51 Carbon Dioxide 30 mmol/L (21-32) 09/09/18 05:51 BUN 38 mg/dL (7-18) H 09/09/18 05:51 Creatinine 4.30 mg/dL (0.55-1.3) H D 09/09/18 05:51 Estimated GFR 13 mL/min (=/>90) L 09/09/18 05:51 Glucose 77 mg/dL (74-106) 09/09/18 05:51 Calcium 8.2 mg/dL (8.5-10.1) L 09/09/18 05:51 Magnesium 2.0 mg/dL (1.8-2.4) 09/04/18 06:41 Albumin 2.5 g/dL (3.4-5.0) L 09/09/18 05:51 Prealbumin 11.9 mg/dL (20-40) L 09/09/18 05:51 Urine Color Yellow 09/04/18 04:30 Urine Appearance Cloudy 09/04/18 04:30 Urine pH 7.0 (5.0-7.0) 09/04/18 04:30 Ur Specific [place] 1.015 (1.005-1.030) 09/04/18 04:30 Urine Ketones Negative (NEG) 09/04/18 04:30 Urine Blood 2+ (NEG) H 09/04/18 04:30 Urine Nitrite Negative (NEG) 09/04/18 04:30 Urine Bilirubin Negative (NEG) 09/04/18 04:30 Urine Urobilinogen 0.2 mg/dL (0.2-1.0) 09/04/18 04:30 Ur Leukocyte Esterase Trace (NEG) H 09/04/18 04:30 Urine RBC >50 /HPF (NONE SEEN) H 09/04/18 04:30 Urine WBC 10-20 /HPF (<5) H 09/04/18 04:30 Ur Squamous Epith Cells 10-20 /HPF (NONE SEEN) H 09/04/18 04:30 Urine Bacteria <20 /HPF (NONE SEEN) 09/04/18 04:30 Urine Culture Reflexed Not needed 09/04/18 04:30 Urine Glucose Negative (NEG) 09/04/18 04:30 Urine Total Protein 3+ (NEG) H 09/04/18 04:30 Hep Bs Antigen Nonreactive (Nonreactive) 09/04/18 13:25 Hep Bs Antibody Nonreactive (Nonreactive) 09/04/18 13:25 Hep B Core Total Ab Nonreactive (Nonreactive) 09/04/18 13:25 Hepatitis C Antibody Nonreactive (Nonreactive) 09/04/18 13:25 Hep C Ab Signal/Cutoff 0.02 ratio (<1.00) 09/04/18 13:25 Weight: 154 lb 9 oz Wound Present: No Closed Surgical Incision Present: No Negative Pressure Wound Therapy Present: No Physician Update: His labs have reviewed. His Hgb is low at 9.4 down from 12.1, 5 days ago. His prealbumin islow at 11.9. His at standby assistance with occupational therapy. He ambulates with observation. He gets frustrated with speech expression and comprehension. 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 Cymbalta 20 mg is started. Medical Issues: DVT Prophylaxis - Heparin 5,000 units SQ Daily Pain Issues: Gabapentin 100mg PO Bedtime Functional Improvement: pt has demonstrated progress throughout the week; however, pt's decreased motivation and willingness to participate fully in therapy has limited his improvement. pt continues to retain potential for significant improvement and requires continued intensive therapy to enhance his functional performance and safety. Functional Improvement Occupational Therapy: Patient requires SBA and set up during BADL tasks at this time, due to significant fatigue. Continues to benefit from further OT to address overall strenght/endurance, which should help improving independence with BADL tasks and functional trf; meeting LTG as set in POC before a safe d/c home. Speech Therapy Update: Patient has been working diligently in speech therapy and has made significant progress in his ability to comprehend complex information and communicate verbally. Patient is at MIN A for auditory comprehension, MOD A for verbal expression, SUPV for social interaction, SUPV for problem solving, and SUPV for memory. At times patient is emotionally labile but is redirectable. Summary: Patient's care plan and long winder tender goals have been reviewed and revised as necessary. Please see the Rehabilitation Signature page for all necessary signatures.
[2018-09-10] MEDS: ONDANSETRON 4 MG (ODT) TAB PO PRN (12:06)
--- NOTE | 2018-09-10 15:41 | FAST ---
ENCOUNTER DATE AND TIME: 09/10/2018 08:00 (CDT) NAME JOSE ALEJANDRO ROSS DATE OF : 1930 DATE OF ADMISSION: 09/03/2018 17:45 (CDT) PHONE: AGE: 88 N# [id number] GENDER: Male ENCOUNTER PHYSICIAN: Dr. Deandre Solis M.D. ADMISSION DIAGNOSIS: - Stroke 01 - Right Body (Left Brain) (01.2) ACUTE LEFT PARIETAL LOBE INFARCTION. EATING: Activity did not occur on this shift EATING - SCORE: 0-UNK GROOMING: Activity did not occur on this shift GROOMING - SCORE: 0-UNK BATHING: Activity did not occur on this shift BATHING - SCORE: 0-UNK DRESSING - UPPER BODY: Activity did not occur on this shift Patient is not dressing in public clothing ARTICLES SCORE Total number of steps: 0 DRESSING - UPPER BODY - SCORE: 0-UNK DRESSING - LOWER BODY: Activity did not occur on this shift Patient is not dressing in public clothing ARTICLES SCORE Total number of steps: 0 DRESSING - LOWER BODY - SCORE: 0-UNK TOILETING: Activity did not occur on this shift TOILETING - SCORE: 0-UNK BLADDER MANAGEMENT: Activity did not occur on this shift BLADDER MANAGEMENT - SCORE: 7-IND BOWEL MANAGEMENT: Activity did not occur on this shift BOWEL MANAGEMENT - SCORE: 7-IND TRANSFERS: BED, CHAIR, WHEELCHAIR: TRANSFERS: BED, CHAIR, WHEELCHAIR - STEP 1: Does the patient require assistance of a person or device, or need extra time with bed, chair, or whe elchair transfers? Yes. TRANSFERS: BED, CHAIR, WHEELCHAIR - STEP 2: Does the patient require the assistance of a helper? Yes. TRANSFERS: BED, CHAIR, WHEELCHAIR - STEP 3: How much assistance does the patient require from the helper? Steadying/guiding assistance TRANSFERS: BED, CHAIR, WHEELCHAIR - SCORE: 4-MIN TRANSFERS: TOILET: Activity did not occur on this shift TRANSFERS: TOILET - SCORE: 0-UNK TRANSFERS: SHOWER: Activity did not occur on this shift TRANSFERS: SHOWER - SCORE: 0-UNK TRANSFERS: TUB: Activity did not occur on this shift TRANSFERS: TUB - SCORE: 0-UNK LOCOMOTION: WALK: Activity did not occur on this shift LOCOMOTION: WALK - SCORE: 0-UNK LOCOMOTION: WHEELCHAIR: LOCOMOTION: WHEELCHAIR - STEP 1: Does the patient need help to go 150 feet in a wheelchair? Yes. LOCOMOTION: WHEELCHAIR - STEP 2: How much assistance does the patient need from the helper? Only incidental help such as around corner s or over thresholds LOCOMOTION: WHEELCHAIR - SCORE: 4-MIN LOCOMOTION: STAIRS: Activity did not occur on this shift LOCOMOTION: STAIRS - SCORE: 0-UNK COMPREHENSION: COMPREHENSION - SCORE: 0-UNK EXPRESSION EXPRESSION - SCORE: 0-UNK SOCIAL INTERACTION: SOCIAL INTERACTION - SCORE: 0-UNK PROBLEM SOLVING: PROBLEM SOLVING - SCORE: 0-UNK MEMORY: MEMORY - SCORE: 0-UNK SIGNATURE PANEL: The following modified sections: Transfers: Bed, Chair, Wheelchair - Score, Transfers: Toilet - Score , Locomotion: Walk - Score, Locomotion: Wheelchair - Score, Locomotion: Stairs - Score were [cheri hurtado] signed by Marium Ruiz PTA on ThuSep 10 2018 15:40:14 T-0500 (Central Daylight Time)
[2018-09-10] MEDS: DOCUSATE NA/SENNA CONC 1 TAB PO SCH (21:07)
[2018-09-10] MEDS: MELATONIN 3 MG TABLET PO SCH (21:07)
[2018-09-10] MEDS: GABAPENTIN 100 MG CAP PO SCH (21:07)
[2018-09-10] MEDS: ATORVASTATIN 20 MG TAB PO SCH (21:07)
[2018-09-11] MEDS: PANTOPRAZOLE 40MG TABLET PO SCH (06:55)
[2018-09-11] MEDS: ONDANSETRON 4 MG (ODT) TAB PO PRN (06:55)
[2018-09-11] MEDS: CARVEDILOL 6.25 MG TAB PO SCH ×2 (08:00→20:43)
[2018-09-11] MEDS: LISINOPRIL 10 MG TAB PO SCH (08:00)
[2018-09-11] MEDS: OCUVITE (VIT A,C & E/LUTEIN/MINERAL) TABLET PO SCH (08:34)
[2018-09-11] MEDS: FERROUS SULFATE 325 MG TAB PO SCH (08:35)
[2018-09-11] MEDS: MULTIVITAMINS,THERAPEUT 1 TAB PO SCH (08:35)
[2018-09-11] MEDS: DULOXETINE 20 MG CAP PO SCH (08:35)
[2018-09-11] MEDS: MAGNESIUM OXIDE 400 MG TAB PO SCH (08:35)
[2018-09-11] MEDS: ASPIRIN EC 81 MG TAB PO SCH (08:36)
[2018-09-11] MEDS: FOLIC ACID 1 MG TABLET PO SCH (08:36)
[2018-09-11] MEDS: HEPARIN 5000 UNIT/ML 1 ML VIAL SQ SCH (09:18)
--- NOTE | 2018-09-11 09:51 | FAST ---
SHIFT START DATE/TIME: 09/11/2018 07:00 (CDT) SHIFT END DATE/TIME: 09/11/2018 19:00 (CDT) NAME JOSE ALEJANDRO ROSS DATE OF : 1930 DATE OF ADMISSION: 09/03/2018 17:45 (CDT) PHONE: AGE: 88 N# [id number] GENDER: Male ENCOUNTER PHYSICIAN: Dr. Deandre Solis M.D. ADMISSION DIAGNOSIS: - Stroke 01 - Right Body (Left Brain) (01.2) ACUTE LEFT PARIETAL LOBE INFARCTION. EATING: EATING - STEP 1: Does the patient require the assistance of a person or device, or need extra time when eating? Yes. EATING - STEP 2: Does the patient require the assistance of a helper? Yes. EATING - STEP 3: Does the patient perform half or more of the eating tasks? Yes. EATING - STEP 4: Does the patient need only supervision, cuing, coaxing OR help to apply an orthosis OR help to cut fo od, open containers, pour liquids, or butter bread? Yes. EATING - SCORE: 5-SUP GROOMING: Comb/brush hair Oral care Wash, rinse, and dry face Wash, rinse, and dry hands GROOMING - STEP 1: Does the patient require the assistance of a person or device, or need extra time when grooming? Yes. GROOMING - STEP 2: Does the patient require the assistance of a helper? No. The patient only requires an assistive devic e, OR takes more than reasonable time to groom, OR there is a concern for safety as the patient groom s GROOMING - SCORE: 6-CATHY BATHING: Activity did not occur on this shift BATHING - SCORE: 0-UNK DRESSING - UPPER BODY: Activity did not occur on this shift ARTICLES SCORE Total number of steps: 0 DRESSING - UPPER BODY - SCORE: 0-UNK DRESSING - LOWER BODY: Activity did not occur on this shift ARTICLES SCORE Total number of steps: 0 DRESSING - LOWER BODY - SCORE: 0-UNK TOILETING: TOILETING - STEP 1: Does the patient require the assistance of a person or device, or need extra time with toileting? Yes . TOILETING - STEP 2: Does the patient require the assistance of a helper? Yes. TOILETING - STEP 3: How much assistance does the patient require from the helper? Hands-on assistance from the helper TOILETING - STEP 4: Of the 3 tasks: 1) Adjusting clothing prior to use, 2) Cleansing of perineal area, 3) Adjusting clot dileep after use; How many tasks does the patient perform WITHOUT assistance of the helper? Two tasks TOILETING - SCORE: 3-MOD BLADDER MANAGEMENT: BLADDER MANAGEMENT - STEP 1: Does the patient control the bladder completely and intentionally without equipment or devices or med ications, and is always continent? No. BLADDER MANAGEMENT - STEP 2: Does the patient require the assistance of a helper? No, patient requires and independently uses an a ssistive device, such as a urinal, bedpan, bedside commode, catheter, absorbent pad, or collecting de vice BLADDER MANAGEMENT - SCORE: 6-CATHY BOWEL MANAGEMENT: Activity did not occur on this shift BOWEL MANAGEMENT - SCORE: 7-IND TRANSFERS: BED, CHAIR, WHEELCHAIR: TRANSFERS: BED, CHAIR, WHEELCHAIR - STEP 1: Does the patient require assistance of a person or device, or need extra time with bed, chair, or whe elchair transfers? Yes. TRANSFERS: BED, CHAIR, WHEELCHAIR - STEP 2: Does the patient require the assistance of a helper? Yes. TRANSFERS: BED, CHAIR, WHEELCHAIR - STEP 3: How much assistance does the patient require from the helper? Steadying/guiding assistance TRANSFERS: BED, CHAIR, WHEELCHAIR - SCORE: 4-MIN TRANSFERS: TOILET: TRANSFERS: TOILET - STEP 1: Does the patient require the assistance of a person or device, or need extra time with toilet transfe rs? Yes. TRANSFERS: TOILET - STEP 2: Does the patient require the assistance of a helper? Yes. TRANSFERS: TOILET - STEP 3: How much assistance does the patient require from the helper? Patient performs half or more of the tr ansferring tasks TRANSFERS: TOILET - STEP 4: Does the patient need only incidental help such as contact guard or steadying during toilet transfer? Yes. TRANSFERS: TOILET - SCORE: 4-MIN TRANSFERS: SHOWER: Activity did not occur on this shift TRANSFERS: SHOWER - SCORE: 0-UNK TRANSFERS: TUB: Activity did not occur on this shift TRANSFERS: TUB - SCORE: 0-UNK LOCOMOTION: WALK: Activity did not occur on this shift LOCOMOTION: WALK - SCORE: 0-UNK LOCOMOTION: WHEELCHAIR: Activity did not occur on this shift LOCOMOTION: WHEELCHAIR - SCORE: 0-UNK COMPREHENSION: COMPREHENSION: TYPE: Both COMPREHENSION - STEP 1: Does the patient require help from a person or device, or need extra time to understand complex and a bstract ideas (such as current events, finances, discharge planning, medical issues, relationships, e tc)? Yes. COMPREHENSION - STEP 2: Does the patient require help to understand questions or statements about basic needs or ideas (such as hunger, thirst, sleep, safety, daily schedule, room location, or discomfort) half or more of the t ezio? No. COMPREHENSION - STEP 3: How often does the patient need help to understand directions and conversation about basic needs? 10% - 24% of the time COMPREHENSION - SCORE: 4-MIN EXPRESSION EXPRESSION: TYPE: Both EXPRESSION - STEP 1: Does the patient require help from a person or device, or need extra time expressing complex and abst ract ideas (such as current events, finances, discharge planning, medical issues, relationships, etc) ? Yes. EXPRESSION - STEP 2: Does the patient require help to express basic necessities or ideas (such as hunger, thirst, sleep, s afety, daily schedule, room location, or discomfort) half or more of the time? No. EXPRESSION - STEP 3: How often does the patient need help to express directions and conversation about basic needs? 10-24% of the time EXPRESSION - SCORE: 4-MIN SOCIAL INTERACTION: SOCIAL INTERACTION - STEP 1: Does the patient require a helper to interact with others in social and therapeutic situations? Yes. SOCIAL INTERACTION - STEP 2: Does the patient interact appropriately half or more of the time? Yes. SOCIAL INTERACTION - STEP 3: How often does the patient need help to interact appropriately? 10-24% of the time SOCIAL INTERACTION - SCORE: 4-MIN PROBLEM SOLVING: PROBLEM SOLVING - STEP 1: Does the patient need help from a person or device, or need extra time to solve complex problems such as managing a checking account or confronting interpersonal problems? Yes. PROBLEM SOLVING - STEP 2: Does the patient solve basic routine problems half or more of the time? Yes. PROBLEM SOLVING - STEP 3: How often does the patient need help to solve basic routine problems? 10%-24% of the time PROBLEM SOLVING - SCORE: 4-MIN MEMORY: MEMORY - STEP 1: Does the patient need help from a person or device, or need extra time to remember frequently encount ered people, daily routines, and executing requests? Yes. MEMORY - STEP 2: How often does the patient need help to remember frequently encountered people, daily routines, and e xecuting requests? 25% - 49% of the time MEMORY - SCORE: 3-MOD SIGNATURE PANEL: The following modified sections: Eating - Score, Grooming - Score, Bathing - Score, Dressing - Upper Body - Score, Dressing - Lower Body - Score, Toileting - Score, Bladder Management - Score, Bowel Man agement - Score, Transfers: Bed, Chair, Wheelchair - Score, Transfers: Toilet - Score, Transfers: Rupa wer - Score, Transfers: Tub - Score, Locomotion: Walk - Score, Locomotion: Wheelchair - Score, Compre hension - Score, Expression - Score, Social Interaction - Score, Problem Solving - Score, Memory - Sc ore were [electronically] signed by Jarad Chaney on Sat Sep 11 2018 09:50:37 GMT-0500 (Central Daylight Time)
[2018-09-11] MEDS: MAGNES/ALUMIN/SIMET 30ML UCUP PO PRN (20:42)
[2018-09-11] MEDS: DOCUSATE NA/SENNA CONC 1 TAB PO SCH (20:42)
[2018-09-11] MEDS: MELATONIN 3 MG TABLET PO SCH (20:43)
[2018-09-11] MEDS: GABAPENTIN 100 MG CAP PO SCH (20:43)
[2018-09-11] MEDS: ATORVASTATIN 20 MG TAB PO SCH (20:43)
[2018-09-11] MEDS: ACETAMINOPHEN 500 MG TAB PO PRN (20:47)
--- NOTE | 2018-09-12 03:19 | FAST ---
SHIFT START DATE/TIME: 09/11/2018 19:00 (CDT) SHIFT END DATE/TIME: 09/12/2018 07:00 (CDT) NAME JOSE ALEJANDRO ROSS DATE OF : 1930 DATE OF ADMISSION: 09/03/2018 17:45 (CDT) PHONE: AGE: 88 SSN# [id number] GENDER: Male ENCOUNTER PHYSICIAN: Dr. Deandre Solis M.D. ADMISSION DIAGNOSIS: - Stroke 01 - Right Body (Left Brain) (01.2) ACUTE LEFT PARIETAL LOBE INFARCTION. EATING: Activity did not occur on this shift EATING - SCORE: 0-UNK GROOMING: Activity did not occur on this shift GROOMING - SCORE: 0-UNK BATHING: Activity did not occur on this shift BATHING - SCORE: 0-UNK DRESSING - UPPER BODY: Activity did not occur on this shift ARTICLES SCORE Total number of steps: 0 DRESSING - UPPER BODY - SCORE: 0-UNK DRESSING - LOWER BODY: Activity did not occur on this shift ARTICLES SCORE Total number of steps: 0 DRESSING - LOWER BODY - SCORE: 0-UNK TOILETING: TOILETING - STEP 1: Does the patient require the assistance of a person or device, or need extra time with toileting? Yes . TOILETING - STEP 2: Does the patient require the assistance of a helper? Yes. TOILETING - STEP 3: How much assistance does the patient require from the helper? Only supervision TOILETING - SCORE: 5-SUP BLADDER MANAGEMENT: BLADDER MANAGEMENT - STEP 1: Does the patient control the bladder completely and intentionally without equipment or devices or med ications, and is always continent? No. BLADDER MANAGEMENT - STEP 2: Does the patient require the assistance of a helper? Yes. BLADDER MANAGEMENT - STEP 3: How much assistance does the patient require from the helper? Only supervision, stand-by, cuing, or c oaxing BLADDER MANAGEMENT - SCORE: 5-SUP BOWEL MANAGEMENT: Activity did not occur on this shift BOWEL MANAGEMENT - SCORE: 7-IND TRANSFERS: BED, CHAIR, WHEELCHAIR: TRANSFERS: BED, CHAIR, WHEELCHAIR - STEP 1: Does the patient require assistance of a person or device, or need extra time with bed, chair, or whe elchair transfers? Yes. TRANSFERS: BED, CHAIR, WHEELCHAIR - STEP 2: Does the patient require the assistance of a helper? Yes. TRANSFERS: BED, CHAIR, WHEELCHAIR - STEP 3: How much assistance does the patient require from the helper? Steadying/guiding assistance TRANSFERS: BED, CHAIR, WHEELCHAIR - SCORE: 4-MIN TRANSFERS: TOILET: TRANSFERS: TOILET - STEP 1: Does the patient require the assistance of a person or device, or need extra time with toilet transfe rs? Yes. TRANSFERS: TOILET - STEP 2: Does the patient require the assistance of a helper? Yes. TRANSFERS: TOILET - STEP 3: How much assistance does the patient require from the helper? Only supervision, cuing, coaxing, OR he lp to set out transfer equipment or to lock brakes and/or lift foot rests TRANSFERS: TOILET - SCORE: 5-SUP TRANSFERS: SHOWER: Activity did not occur on this shift TRANSFERS: SHOWER - SCORE: 0-UNK TRANSFERS: TUB: Activity did not occur on this shift TRANSFERS: TUB - SCORE: 0-UNK LOCOMOTION: WALK: Activity did not occur on this shift LOCOMOTION: WALK - SCORE: 0-UNK LOCOMOTION: WHEELCHAIR: Activity did not occur on this shift LOCOMOTION: WHEELCHAIR - SCORE: 0-UNK COMPREHENSION: COMPREHENSION: TYPE: Both COMPREHENSION - STEP 1: Does the patient require help from a person or device, or need extra time to understand complex and a bstract ideas (such as current events, finances, discharge planning, medical issues, relationships, e tc)? Yes. COMPREHENSION - STEP 2: Does the patient require help to understand questions or statements about basic needs or ideas (such as hunger, thirst, sleep, safety, daily schedule, room location, or discomfort) half or more of the t ezio? No. COMPREHENSION - STEP 3: How often does the patient need help to understand directions and conversation about basic needs? 10% - 24% of the time COMPREHENSION - SCORE: 4-MIN EXPRESSION EXPRESSION: TYPE: Both EXPRESSION - STEP 1: Does the patient require help from a person or device, or need extra time expressing complex and abst ract ideas (such as current events, finances, discharge planning, medical issues, relationships, etc) ? Yes. EXPRESSION - STEP 2: Does the patient require help to express basic necessities or ideas (such as hunger, thirst, sleep, s afety, daily schedule, room location, or discomfort) half or more of the time? No. EXPRESSION - STEP 3: How often does the patient need help to express directions and conversation about basic needs? 10-24% of the time EXPRESSION - SCORE: 4-MIN SOCIAL INTERACTION: SOCIAL INTERACTION - STEP 1: Does the patient require a helper to interact with others in social and therapeutic situations? No. SOCIAL INTERACTION - STEP 2: Does the patient need extra time in social situations, OR does s/he interact with staff, other patien ts, and family members ONLY in structured environments, OR does s/he require medication for social in teraction? Yes, patient needs extra time SOCIAL INTERACTION - SCORE: 6-CATHY PROBLEM SOLVING: Patient requires bed/chair alarms due to attempts to get up unassisted when helper is needed. PROBLEM SOLVING - STEP 1: How often do the bed/chair alarms go off? Occasionally - the alarms go off about 25% or less PROBLEM SOLVING - SCORE: 4-MIN MEMORY: MEMORY - STEP 1: How often do the bed/chair alarms go off? Occasionally - the alarms go off about 25% of the time or l ess MEMORY - SCORE: 4-MIN SIGNATURE PANEL: The following modified sections: Eating - Score, Grooming - Score, Bathing - Score, Dressing - Upper Body - Score, Dressing - Lower Body - Score, Toileting - Score, Bladder Management - Score, Bowel Man agement - Score, Transfers: Bed, Chair, Wheelchair - Score, Transfers: Toilet - Score, Transfers: Rupa wer - Score, Transfers: Tub - Score, Locomotion: Walk - Score, Locomotion: Wheelchair - Score, Compre hension - Score, Expression - Score, Social Interaction - Score, Problem Solving - Score, Memory - Sc ore were [electronically] signed by Divina Pena CNA on ThuSep 12 2018 03:18:58 T-0500 ([place] Da ylight Time)
[2018-09-12] MEDS: PANTOPRAZOLE 40MG TABLET PO SCH (07:07)
[2018-09-12] MEDS: ONDANSETRON 4 MG (ODT) TAB PO PRN (07:07)
[2018-09-12] MEDS: LISINOPRIL 10 MG TAB PO SCH (08:00)
[2018-09-12] MEDS: CARVEDILOL 6.25 MG TAB PO SCH ×2 (08:00→20:00)
[2018-09-12] MEDS: MAGNESIUM OXIDE 400 MG TAB PO SCH (08:29)
[2018-09-12] MEDS: FERROUS SULFATE 325 MG TAB PO SCH (08:29)
[2018-09-12] MEDS: OCUVITE (VIT A,C & E/LUTEIN/MINERAL) TABLET PO SCH (08:29)
[2018-09-12] MEDS: MECLIZINE HCL 12.5 MG TAB PO PRN (08:31)
[2018-09-12] MEDS: DULOXETINE 20 MG CAP PO SCH (08:31)
[2018-09-12] MEDS: MULTIVITAMINS,THERAPEUT 1 TAB PO SCH (08:31)
[2018-09-12] MEDS: FOLIC ACID 1 MG TABLET PO SCH (08:32)
[2018-09-12] MEDS: ASPIRIN EC 81 MG TAB PO SCH (08:32)
[2018-09-12] MEDS: HEPARIN 5000 UNIT/ML 1 ML VIAL SQ SCH (09:13)
--- NOTE | 2018-09-12 09:22 | FAST ---
SHIFT START DATE/TIME: 09/12/2018 07:00 (CDT) SHIFT END DATE/TIME: 09/12/2018 19:00 (CDT) NAME JOSE ALEJANDRO ROSS DATE OF : 1930 DATE OF ADMISSION: 09/03/2018 17:45 (CDT) PHONE: AGE: 88 N# [id number] GENDER: Male ENCOUNTER PHYSICIAN: Dr. Deandre Solis M.D. ADMISSION DIAGNOSIS: - Stroke 01 - Right Body (Left Brain) (01.2) ACUTE LEFT PARIETAL LOBE INFARCTION. EATING: EATING - STEP 1: Does the patient require the assistance of a person or device, or need extra time when eating? Yes. EATING - STEP 2: Does the patient require the assistance of a helper? Yes. EATING - STEP 3: Does the patient perform half or more of the eating tasks? Yes. EATING - STEP 4: Does the patient need only supervision, cuing, coaxing OR help to apply an orthosis OR help to cut fo od, open containers, pour liquids, or butter bread? Yes. EATING - SCORE: 5-SUP GROOMING: Comb/brush hair Oral care GROOMING - STEP 1: Does the patient require the assistance of a person or device, or need extra time when grooming? Yes. GROOMING - STEP 2: Does the patient require the assistance of a helper? Yes. GROOMING - STEP 3: How much assistance does the patient require from the helper? Only prior equipment preparation/set up from the helper GROOMING - SCORE: 5-SUP BATHING: Activity did not occur on this shift BATHING - SCORE: 0-UNK DRESSING - UPPER BODY: Activity did not occur on this shift ARTICLES SCORE Total number of steps: 0 DRESSING - UPPER BODY - SCORE: 0-UNK DRESSING - LOWER BODY: Activity did not occur on this shift ARTICLES SCORE Total number of steps: 0 DRESSING - LOWER BODY - SCORE: 0-UNK TOILETING: TOILETING - STEP 1: Does the patient require the assistance of a person or device, or need extra time with toileting? Yes . TOILETING - STEP 2: Does the patient require the assistance of a helper? Yes. TOILETING - STEP 3: How much assistance does the patient require from the helper? Only supervision TOILETING - SCORE: 5-SUP BLADDER MANAGEMENT: BLADDER MANAGEMENT - STEP 1: Does the patient control the bladder completely and intentionally without equipment or devices or med ications, and is always continent? No. BLADDER MANAGEMENT - STEP 2: Does the patient require the assistance of a helper? No, patient requires and independently uses an a ssistive device, such as a urinal, bedpan, bedside commode, catheter, absorbent pad, or collecting de vice BLADDER MANAGEMENT - SCORE: 6-CATHY BOWEL MANAGEMENT: Activity did not occur on this shift BOWEL MANAGEMENT - SCORE: 7-IND TRANSFERS: BED, CHAIR, WHEELCHAIR: TRANSFERS: BED, CHAIR, WHEELCHAIR - STEP 1: Does the patient require assistance of a person or device, or need extra time with bed, chair, or whe elchair transfers? Yes. TRANSFERS: BED, CHAIR, WHEELCHAIR - STEP 2: Does the patient require the assistance of a helper? Yes. TRANSFERS: BED, CHAIR, WHEELCHAIR - STEP 3: How much assistance does the patient require from the helper? Steadying/guiding assistance TRANSFERS: BED, CHAIR, WHEELCHAIR - SCORE: 4-MIN TRANSFERS: TOILET: TRANSFERS: TOILET - STEP 1: Does the patient require the assistance of a person or device, or need extra time with toilet transfe rs? Yes. TRANSFERS: TOILET - STEP 2: Does the patient require the assistance of a helper? Yes. TRANSFERS: TOILET - STEP 3: How much assistance does the patient require from the helper? Only supervision, cuing, coaxing, OR he lp to set out transfer equipment or to lock brakes and/or lift foot rests TRANSFERS: TOILET - SCORE: 5-SUP TRANSFERS: SHOWER: Activity did not occur on this shift TRANSFERS: SHOWER - SCORE: 0-UNK TRANSFERS: TUB: Activity did not occur on this shift TRANSFERS: TUB - SCORE: 0-UNK LOCOMOTION: WALK: Activity did not occur on this shift LOCOMOTION: WALK - SCORE: 0-UNK LOCOMOTION: WHEELCHAIR: Activity did not occur on this shift LOCOMOTION: WHEELCHAIR - SCORE: 0-UNK COMPREHENSION: COMPREHENSION: TYPE: Both COMPREHENSION - STEP 1: Does the patient require help from a person or device, or need extra time to understand complex and a bstract ideas (such as current events, finances, discharge planning, medical issues, relationships, e tc)? Yes. COMPREHENSION - STEP 2: Does the patient require help to understand questions or statements about basic needs or ideas (such as hunger, thirst, sleep, safety, daily schedule, room location, or discomfort) half or more of the t ezio? No. COMPREHENSION - STEP 3: How often does the patient need help to understand directions and conversation about basic needs? 10% - 24% of the time COMPREHENSION - SCORE: 4-MIN EXPRESSION EXPRESSION: TYPE: Both EXPRESSION - STEP 1: Does the patient require help from a person or device, or need extra time expressing complex and abst ract ideas (such as current events, finances, discharge planning, medical issues, relationships, etc) ? Yes. EXPRESSION - STEP 2: Does the patient require help to express basic necessities or ideas (such as hunger, thirst, sleep, s afety, daily schedule, room location, or discomfort) half or more of the time? No. EXPRESSION - STEP 3: How often does the patient need help to express directions and conversation about basic needs? Less t [place] 10% of the time EXPRESSION - SCORE: 5-SUP SOCIAL INTERACTION: SOCIAL INTERACTION - STEP 1: Does the patient require a helper to interact with others in social and therapeutic situations? Yes. SOCIAL INTERACTION - STEP 2: Does the patient interact appropriately half or more of the time? Yes. SOCIAL INTERACTION - STEP 3: How often does the patient need help to interact appropriately? 10-24% of the time SOCIAL INTERACTION - SCORE: 4-MIN PROBLEM SOLVING: PROBLEM SOLVING - STEP 1: Does the patient need help from a person or device, or need extra time to solve complex problems such as managing a checking account or confronting interpersonal problems? Yes. PROBLEM SOLVING - STEP 2: Does the patient solve basic routine problems half or more of the time? Yes. PROBLEM SOLVING - STEP 3: How often does the patient need help to solve basic routine problems? 10%-24% of the time PROBLEM SOLVING - SCORE: 4-MIN MEMORY: MEMORY - STEP 1: Does the patient need help from a person or device, or need extra time to remember frequently encount ered people, daily routines, and executing requests? Yes. MEMORY - STEP 2: How often does the patient need help to remember frequently encountered people, daily routines, and e xecuting requests? 10% - 24% of the time MEMORY - SCORE: 4-MIN SIGNATURE PANEL: The following modified sections: Eating - Score, Grooming - Score, Bathing - Score, Dressing - Upper Body - Score, Dressing - Lower Body - Score, Toileting - Score, Bladder Management - Score, Bowel Man agement - Score, Transfers: Bed, Chair, Wheelchair - Score, Transfers: Toilet - Score, Transfers: Rupa wer - Score, Transfers: Tub - Score, Locomotion: Walk - Score, Locomotion: Wheelchair - Score, Compre hension - Score, Expression - Score, Social Interaction - Score, Problem Solving - Score, Memory - Sc ore were [electronically] signed by Jarad Chaney on ThuSep 12 2018 09:21:29 GMT-0500 (Central Daylight Time)
--- NOTE | 2018-09-12 15:43 | PN ---
Date of Progress Note: 09/12/2018 The patient is sleepy today comfortable. Physical Examination: Vital Signs: Blood pressure 118/57, pulse of 63. Chest: Faint crackles on the left base. Heart: S1-S2, systolic murmur. Abdomen: Soft, nontender. Extremities: No edema. Laboratory Data: H and H 9.4/28.8. Sodium 136, potassium 5.1, bicarb 30, BUN 38, creatinine 4.3, ca lcium 8.2, albumin 2.5, corrected calcium is 9.8. Current Medications: The patient on its include atorvastatin, carvedilol 6.25, Lasix 10 mg, gabapent in 100 at bedtime, folic acid, Zofran, pantoprazole, Bisacodyl, Fleet enema, multivitamin. Assessment And Plan: 1.End-stage renal disease. Normal volume. We will continue the patient on dialysis Thursday, ay, Thursday. The patient is scheduled for dialysis tomorrow. 2.We will use the sodium module and low temperature to maintain good blood pressure. 3.Hypertension, controlled, optimal. Continue current treatment. 4.Constipation. I am going to discontinue Fleet given the patient has end-stage renal disease. 5.Anemia of chronic kidney disease. Continue Epogen. 6.cerebrovascular accident, continue PT OT. Follow up with Physical. ILDA Voice ID: [id number] Report ID: [id number]
[2018-09-12] MEDS: ATORVASTATIN 20 MG TAB PO SCH (20:06)
[2018-09-12] MEDS: GABAPENTIN 100 MG CAP PO SCH (20:06)
[2018-09-12] MEDS: ACETAMINOPHEN 500 MG TAB PO PRN (20:06)
[2018-09-12] MEDS: DOCUSATE NA/SENNA CONC 1 TAB PO SCH (20:07)
[2018-09-12] MEDS: MELATONIN 3 MG TABLET PO SCH (20:07)
--- NOTE | 2018-09-13 01:57 | FAST ---
SHIFT START DATE/TIME: 09/12/2018 19:00 (CDT) SHIFT END DATE/TIME: 09/13/2018 07:00 (CDT) NAME JOSE ALEJANDRO ROSS DATE OF : 1930 DATE OF ADMISSION: 09/03/2018 17:45 (CDT) PHONE: AGE: 88 N# [id number] GENDER: Male ENCOUNTER PHYSICIAN: Dr. Deandre Solis M.D. ADMISSION DIAGNOSIS: - Stroke 01 - Right Body (Left Brain) (01.2) ACUTE LEFT PARIETAL LOBE INFARCTION. EATING: Activity did not occur on this shift EATING - SCORE: 0-UNK GROOMING: Activity did not occur on this shift GROOMING - SCORE: 0-UNK BATHING: Activity did not occur on this shift BATHING - SCORE: 0-UNK DRESSING - UPPER BODY: Activity did not occur on this shift ARTICLES SCORE Total number of steps: 0 DRESSING - UPPER BODY - SCORE: 0-UNK DRESSING - LOWER BODY: Activity did not occur on this shift ARTICLES SCORE Total number of steps: 0 DRESSING - LOWER BODY - SCORE: 0-UNK TOILETING: TOILETING - STEP 1: Does the patient require the assistance of a person or device, or need extra time with toileting? Yes . TOILETING - STEP 2: Does the patient require the assistance of a helper? Yes. TOILETING - STEP 3: How much assistance does the patient require from the helper? Hands-on assistance from the helper TOILETING - STEP 4: Of the 3 tasks: 1) Adjusting clothing prior to use, 2) Cleansing of perineal area, 3) Adjusting clot dileep after use; How many tasks does the patient perform WITHOUT assistance of the helper? Three tasks with steadying assistance from the helper TOILETING - SCORE: 4-MIN BLADDER MANAGEMENT: BLADDER MANAGEMENT - STEP 1: Does the patient control the bladder completely and intentionally without equipment or devices or med ications, and is always continent? Yes. BLADDER MANAGEMENT - SCORE: 7-IND BOWEL MANAGEMENT: Activity did not occur on this shift BOWEL MANAGEMENT - SCORE: 7-IND TRANSFERS: BED, CHAIR, WHEELCHAIR: TRANSFERS: BED, CHAIR, WHEELCHAIR - STEP 1: Does the patient require assistance of a person or device, or need extra time with bed, chair, or whe elchair transfers? Yes. TRANSFERS: BED, CHAIR, WHEELCHAIR - STEP 2: Does the patient require the assistance of a helper? Yes. TRANSFERS: BED, CHAIR, WHEELCHAIR - STEP 3: How much assistance does the patient require from the helper? Steadying/guiding assistance TRANSFERS: BED, CHAIR, WHEELCHAIR - SCORE: 4-MIN TRANSFERS: TOILET: TRANSFERS: TOILET - STEP 1: Does the patient require the assistance of a person or device, or need extra time with toilet transfe rs? Yes. TRANSFERS: TOILET - STEP 2: Does the patient require the assistance of a helper? Yes. TRANSFERS: TOILET - STEP 3: How much assistance does the patient require from the helper? Patient performs half or more of the tr ansferring tasks TRANSFERS: TOILET - STEP 4: Does the patient need only incidental help such as contact guard or steadying during toilet transfer? Yes. TRANSFERS: TOILET - SCORE: 4-MIN TRANSFERS: SHOWER: Activity did not occur on this shift TRANSFERS: SHOWER - SCORE: 0-UNK TRANSFERS: TUB: Activity did not occur on this shift TRANSFERS: TUB - SCORE: 0-UNK LOCOMOTION: WALK: Activity did not occur on this shift LOCOMOTION: WALK - SCORE: 0-UNK LOCOMOTION: WHEELCHAIR: Activity did not occur on this shift LOCOMOTION: WHEELCHAIR - SCORE: 0-UNK COMPREHENSION: COMPREHENSION: TYPE: Both COMPREHENSION - STEP 1: Does the patient require help from a person or device, or need extra time to understand complex and a bstract ideas (such as current events, finances, discharge planning, medical issues, relationships, e tc)? Yes. COMPREHENSION - STEP 2: Does the patient require help to understand questions or statements about basic needs or ideas (such as hunger, thirst, sleep, safety, daily schedule, room location, or discomfort) half or more of the t ezio? No. COMPREHENSION - STEP 3: How often does the patient need help to understand directions and conversation about basic needs? 10% - 24% of the time COMPREHENSION - SCORE: 4-MIN EXPRESSION EXPRESSION: TYPE: Both EXPRESSION - STEP 1: Does the patient require help from a person or device, or need extra time expressing complex and abst ract ideas (such as current events, finances, discharge planning, medical issues, relationships, etc) ? Yes. EXPRESSION - STEP 2: Does the patient require help to express basic necessities or ideas (such as hunger, thirst, sleep, s afety, daily schedule, room location, or discomfort) half or more of the time? No. EXPRESSION - STEP 3: How often does the patient need help to express directions and conversation about basic needs? 10-24% of the time EXPRESSION - SCORE: 4-MIN SOCIAL INTERACTION: SOCIAL INTERACTION - STEP 1: Does the patient require a helper to interact with others in social and therapeutic situations? No. SOCIAL INTERACTION - STEP 2: Does the patient need extra time in social situations, OR does s/he interact with staff, other patien ts, and family members ONLY in structured environments, OR does s/he require medication for social in teraction? Yes, patient needs extra time SOCIAL INTERACTION - SCORE: 6-CATHY PROBLEM SOLVING: Patient requires bed/chair alarms due to attempts to get up unassisted when helper is needed. PROBLEM SOLVING - STEP 1: How often do the bed/chair alarms go off? Occasionally - the alarms go off about 25% or less PROBLEM SOLVING - SCORE: 4-MIN MEMORY: MEMORY - STEP 1: How often do the bed/chair alarms go off? Occasionally - the alarms go off about 25% of the time or l ess MEMORY - SCORE: 4-MIN SIGNATURE PANEL: The following modified sections: Eating - Score, Grooming - Score, Bathing - Score, Dressing - Upper Body - Score, Dressing - Lower Body - Score, Toileting - Score, Bladder Management - Score, Bowel Man agement - Score, Transfers: Bed, Chair, Wheelchair - Score, Transfers: Toilet - Score, Transfers: Rupa wer - Score, Transfers: Tub - Score, Locomotion: Walk - Score, Locomotion: Wheelchair - Score, Compre hension - Score, Expression - Score, Social Interaction - Score, Problem Solving - Score, Memory - Sc ore were [electronically] signed by Divina Pena CNA on ThuSep 13 2018 01:57:28 T-0500 ([place] Da ylight Time)
[2018-09-13 06:57] VITALS: BP 120/63; TEMP 96.8
[2018-09-13] MEDS: PANTOPRAZOLE 40MG TABLET PO SCH (07:24)
[2018-09-13] MEDS: HEPARIN 5000 UNIT/ML 1 ML VIAL SQ SCH (07:25)
[2018-09-13] MEDS: DULOXETINE 20 MG CAP PO SCH (08:47)
[2018-09-13] MEDS: FERROUS SULFATE 325 MG TAB PO SCH (08:47)
[2018-09-13] MEDS: CARVEDILOL 6.25 MG TAB PO SCH (08:47)
[2018-09-13] MEDS: OCUVITE (VIT A,C & E/LUTEIN/MINERAL) TABLET PO SCH (08:47)
[2018-09-13] MEDS: MAGNESIUM OXIDE 400 MG TAB PO SCH (08:47)
[2018-09-13] MEDS: ASPIRIN EC 81 MG TAB PO SCH (08:47)
[2018-09-13] MEDS: FOLIC ACID 1 MG TABLET PO SCH (08:47)
[2018-09-13] MEDS: LISINOPRIL 10 MG TAB PO SCH (08:48)
[2018-09-13] MEDS: MULTIVITAMINS,THERAPEUT 1 TAB PO SCH (08:48)
[2018-09-13 11:21] LABS: Absolute Lymphocytes (CBC) 0.9 K/uL (0.7-4.9); Absolute Monocytes 0.4 K/uL (0.1-1.3); Absolute Neutrophil 4.3 K/uL (1.8-8.0); Basophils % 1.4 % (0-1.3); Eosinophils % 0.7 % (0-4.4); Lymphocytes % 15.8 % (15.3-44.8); MPV 7.2 fL (7.6-11.3); Monocytes % 7.7 % (3.3-12.3); RBC Red Blood Cell Count 3.43 M/uL (4.33-5.43)
[2018-09-13 12:22] LABS: Albumin 2.9 g/dL (3.4-5.0); Bilirubin Total 0.5 mg/dL (0.2-1.0); Phosphorus 6.3 mg/dL (2.5-4.9); Protein, Total 7.3 g/dL (6.4-8.2)
[2018-09-13 12:26] LABS: Potassium 6.8 mmol/L (3.5-5.1)
[2018-09-13] MEDS ORDERED: SOD POLYSTYREN SUL 15 GM/60 ML UCUP PO ONE (13:15)
[2018-09-13] MEDS ORDERED: ALBUTEROL 2.5 MG/3 ML NEB SOL NEB ONE ×2 (14:45→15:45)
[2018-09-13] MEDS ORDERED: CALCIUM GLUC 10% INJ 4.65 MEQ in NA CHLORIDE 0.9% 100 ML IV ONE (14:45)
--- NOTE | 2018-09-13 16:20 | RAD REPORT ---
EXAM DESCRIPTION: RAD - Chest Pa And Lat (2 Views) - 09/13/2018 4:02 pm CLINICAL HISTORY: chf Chest pain. COMPARISON: Chest Single View dated 09/01/2018; Chest Single View dated 05/19/2018; Chest Pa And Lat (2 Views) dated 05/02/2018; Chest Single View dated 05/01/2018 FINDINGS: Bilateral pulmonary opacities are present, most compatible with pulmonary edema, mildly im proved since 09/01/2018 study. Small to moderate bilateral pleural effusions persists, unchanged. The heart is moderately enlarged in size. IMPRESSION: CHF is again noted, mildly improved since comparative study.
--- NOTE | 2018-09-13 17:34 | R.PN ---
ENCOUNTER DATE AND TIME: 09/13/2018 17:25 (CDT) NAME JOSE ALEJANDRO ROSS DATE OF : 1930 DATE OF ADMISSION: 09/03/2018 17:45 (CDT) ACUTE LEFT PARIETAL LOBE INFARCTIONCHIEF COMPLAINT: Aphasic stroke, dysphagia, incoordination SUBJECTIVE: Pt denied any Shortness of Breath. Pt denied any depression. WBC 5.7, Hgb 9.9, potassium 7.3. Kayexelate 45 gram x 1 was given. Mg 2.6. He has dialysis later toda y. Prealbumin 14.8, Search Engine [employer] Specialist 5.5, urine culture is negative. Ambulated 80' with minimum assistance using a rollator and walker. Working well speech therapy. He pa ssed his barium swallow test last Thursday without aspiration. Minor coughing noted with meals. Dr. Man identified left heel bone spur likely causing pain in the left heel. Rec. off loading the h eel. EKG showing atrial fibrillation. The renal service wants transfer to the acute care floor. The patien t was discharged to telemetry. Ambulated 175', 100' with contact guard assistance using a rolling walker. Requires constant verbal e ncouragement. UP and down 5 steps with moderate assistance. VITAL SIGNS Temperature: 97.8 F SBP/DBP: 120/63 Pulse: 82 Resp: 16 MEDICATION ALLERGIES: DOXYCYCLINE Iodine ENVIRONMENTAL ALLERGIES: None Known - Substance Allergies None Known - Other Allergies None Known NURSING: - Shower allowing shower - Bladder care per protocol - Skin care per protocol PRECAUTIONS: - Weight Bearing Precaution WBAT left LE ACTIVITIES OOB only with supervision THERAPIES: - Occupational Therapy Evaluate and Treat. Visual Perceptual Training. Cognitive Retraining. - Speech Therapy Cognitive Training. Memory Strategies. Speech Intelligibility Training. Expressive Language Skills. R eceptive Language Skills. - Physical Therapy Evaluate and Treat. PHYSICAL EXAM - Gen Alert and awake Lying in bed No apparent distress Oriented to: person, time, and place - Skin No breakdown Normacephalic - Eyes No abnormalities - ENMT No abnormalities - Neck No abnormalities - CVS RRR - Chest No abnormalities - Resp Clear to auscultation - Abd +bowel sounds - GI Soft Deferred - Little urine production. On hemodialysis three times weekly. - Ext No significant edema - MSK 5-/5 weakness in left upper and lower extremity - Neuro Aphasia, dysarthria, 5-/5 strength left upper and lower extremities. Unsteady gait. - Psych Mild depression. ASSESSMENT: Pt. is a 88 yo Right-handed white male.On 09/01/2018 Pt. presented to [facility] with sudden onset of right-side weakness.On 09/01/2018 he was admitted to [facility] with diagnosis ACUTE LEFT PARIETAL LOBE INFARCTION.His impairment category is Stroke 01 - Ri ght Body (Left Brain) (01.2).Pre-morbidly, Pt. was independent/mod-I in Self-Care, Sphincter Control, Transfers Control, Locomotion, Communication, and Social Cognition; and he had good Sphincter Contro l.Currently, he has deficits of Transfers Control, Locomotion, Communication, Endurance, Balance, Saf ety Awareness, and Self-Care.Pt. is now referred to [facility] for acute [facility] rehabilitation in order to maximize patient's functional independence in activities of daily li ving, strength, ROM, and mobility.- Rehab Goal Patient has realistic goal of being discharged at assistance level 3-modA to reside at Home with Fam ming/Relatives. MDM/PLAN: - Physical Therapy Gait dysfunction - to improve, our physical therapists will perform initial evaluation of pt's statu s upon admission and devise an individualized program for Gait Training, and Wheel Chair mobility Inability to transfer - to improve, our physical therapists will perform initial evaluation of pt's status upon admission and devise an individualized program for Bed mobility Need for home safety evaluation - to improve, our physical therapists will perform initial evaluatio n of pt's status upon admission and devise an individualized program for Home Evaluation Need in caregiver upon discharge - to improve, our physical therapists will perform initial evaluati on of pt's status upon admission and devise an individualized program for Caregiver Training New precaution - to improve, our physical therapists will perform initial evaluation of pt's status upon admission and devise an individualized program for Patient precaution education Edema - to improve, our physical therapists will perform initial evaluation of pt's status upon admi ssion and devise an individualized program for Elevation Training, and Lymphedema Therapy Poor balance - to improve, our physical therapists will perform initial evaluation of pt's status up on admission and devise an individualized program for Balance Training Poor endurance - to improve, our physical therapists will perform initial evaluation of pt's status upon admission and devise an individualized program for Endurance Training Weakness - to improve, our physical therapists will perform initial evaluation of pt's status upon a dmission and devise an individualized program for Aquatic Therapy, Neuromuscular Reeducation, and Str engthening Achieving independence - to improve, our physical therapists will perform initial evaluation of pt's status upon admission and devise an individualized program for Community Reintegration Activities - Occupational Therapy ADL deficits - to improve, our occupation therapists will perform initial evaluation of pt's status upon admission and devise an individualized program for Bathing, Bed mobility, Community Reintegratio n, Cooking, Dressing, Eating, Fine Motor Skills, Grooming, Homemaking, Kitchen Mobility, Laundry, Pat ient Education, Safety Awareness, Splinting - Positioning, Transfers(Toilet, Tub, Shower), and Wheel Chair Management Need for rn care transition - to improve, our occupation therapists will perform initial evaluation of pt's status upon admission and devise an individualized program for Caregiver Training Weakness - to improve, our occupation therapists will perform initial evaluation of pt's status upon admission and devise an individualized program for Aquatic Therapy, Balance, Endurance, UE ROM, and UE strengthening - Diet Type Continue Regular - Diet - Liquid Texture Continue Regular - Tube Feed Continue N/A - Bladder care per protocol - Weight Bearing Precaution WBAT left LE - Skin care per protocol - Diet - Solid Texture Continue Regular - Shower allowing shower for Dementia, TBI, Stroke, or others FUNCTIONAL STATUS: UPDATED AT WEEKLY TEAM CONFERENCE - Bladder Same accident frequency: 7-Ind - No accidents in the past 7 days - Bowel Same accident frequency: 7-Ind - No accidents in the past 7 days - Walking Same score based on distance walked: 3(>=150ft) - Wheelchair Same score based on distance traveled: 0(N/A) FUNCTIONAL STATUS: - Self-Care A. Eating Ind B. Grooming Ind C. Bathing sup D. Dressing - Upper sup E. Dressing - Lower Gale F. Toileting Gale - Sphincter Control G: Bladder control Ind H: Bowel control Ind - Transfers Control I. Bed/Chair/Wheelchair CGA J. Toilet CGA K. Tub/Shower ADNO - Locomotion L. Walk/Wheelchair (C) CGA L. Walk/Wheelchair (W) CGA M. Stairs ADNO - Communication N. Comprehension (B) Gale O. Expression (B) modA - Social Cognition P. Social Interaction Princess Q. Problem Solving Princess R. Memory Princess - Endurance Fair - Balance Fair - Safety Awareness Fair CURRENT [facility]. DEFICITS: Transfers Control, Locomotion, Communication, Endurance, Balance, Safety Awareness, and Self-Care SIGNATURE PANEL: (CDT)
--- NOTE | 2018-09-14 11:04 | EKG ---
Test Date: 2018-09-07 Test Time: 02:18:42 Twx Operator: RT Borjas MEASUREMENT RESULTS: Intervals: Rate: 63 FL: QRSD: 92 QT: 448 QTc: 458 [place]: P: FL: QRS: 33 T: 119 INTERPRETIVE STATEMENTS: Atrial fibrillation Incomplete right bundle branch block Anteroseptal infarct, age undetermined T wave abnormality, consider lateral ischemia or digitalis effect Abnormal ECG Compared to ECG 09/01/2018 21:36:34 Incomplete right bundle-branch block now present Myocardial infarct finding still present T-wave abnormality still present Possible ischemia still present Electronically Signed On 09-07-18 05:34:22 CDT by Roque Santiago
--- NOTE | 2018-09-14 11:41 | EKG ---
Test Date: 2018-09-13 Test Time: 12:46:06 Rehabilitation Physician: RENEE MEASUREMENT RESULTS: Intervals: Rate: 70 NM: QRSD: 98 QT: 398 QTc: 429 [place]: P: NM: QRS: 145 T: 113 INTERPRETIVE STATEMENTS: Atrial fibrillation Right axis deviation Incomplete right bundle branch block Anteroseptal infarct, age undetermined Abnormal ECG Compared to ECG 09/07/2018 02:18:42 Right-axis deviation now present Myocardial infarct finding still present Electronically Signed On 09-13-18 16:09:32 CDT by Roque Santiago
--- NOTE | 2018-09-14 15:41 | FAST ---
ENCOUNTER DATE AND TIME: 09/13/2018 08:00 (CDT) NAME JOSE ALEJANDRO ROSS DATE OF : 1930 DATE OF ADMISSION: 09/03/2018 17:45 (CDT) PHONE: AGE: 88 N# [id number] GENDER: Male ENCOUNTER PHYSICIAN: Dr. Deandre Solis M.D. ADMISSION DIAGNOSIS: - Stroke 01 - Right Body (Left Brain) (01.2) ACUTE LEFT PARIETAL LOBE INFARCTION. EATING: Activity did not occur on this shift EATING - SCORE: 0-UNK GROOMING: Activity did not occur on this shift GROOMING - SCORE: 0-UNK BATHING: Activity did not occur on this shift BATHING - SCORE: 0-UNK DRESSING - UPPER BODY: Activity did not occur on this shift Patient is not dressing in public clothing ARTICLES SCORE Total number of steps: 0 DRESSING - UPPER BODY - SCORE: 0-UNK DRESSING - LOWER BODY: Activity did not occur on this shift Patient is not dressing in public clothing ARTICLES SCORE Total number of steps: 0 DRESSING - LOWER BODY - SCORE: 0-UNK TOILETING: Activity did not occur on this shift TOILETING - SCORE: 0-UNK BLADDER MANAGEMENT: Activity did not occur on this shift BLADDER MANAGEMENT - SCORE: 7-IND BOWEL MANAGEMENT: Activity did not occur on this shift BOWEL MANAGEMENT - SCORE: 7-IND TRANSFERS: BED, CHAIR, WHEELCHAIR: TRANSFERS: BED, CHAIR, WHEELCHAIR - STEP 1: Does the patient require assistance of a person or device, or need extra time with bed, chair, or whe elchair transfers? Yes. TRANSFERS: BED, CHAIR, WHEELCHAIR - STEP 2: Does the patient require the assistance of a helper? Yes. TRANSFERS: BED, CHAIR, WHEELCHAIR - STEP 3: How much assistance does the patient require from the helper? Steadying/guiding assistance TRANSFERS: BED, CHAIR, WHEELCHAIR - SCORE: 4-MIN TRANSFERS: TOILET: Activity did not occur on this shift TRANSFERS: TOILET - SCORE: 0-UNK TRANSFERS: SHOWER: Activity did not occur on this shift TRANSFERS: SHOWER - SCORE: 0-UNK TRANSFERS: TUB: Activity did not occur on this shift TRANSFERS: TUB - SCORE: 0-UNK LOCOMOTION: WALK: LOCOMOTION: WALK - STEP 1: Does the patient need help from a person or device, or need extra time to walk 150 feet? Yes. LOCOMOTION: WALK - STEP 2: How much assistance does the patient require to walk a minimum of 150 feet? Patient walks less than 1 50 feet - but more than 50 feet - with the assistance of only one helper LOCOMOTION: WALK - SCORE: 2-MAX LOCOMOTION: WHEELCHAIR: LOCOMOTION: WHEELCHAIR - STEP 1: Does the patient need help to go 150 feet in a wheelchair? Yes. LOCOMOTION: WHEELCHAIR - STEP 2: How much assistance does the patient need from the helper? Patient goes less than 150 feet - but more than 50 feet - with the assistance of only one helper LOCOMOTION: WHEELCHAIR - SCORE: 2-MAX LOCOMOTION: STAIRS: Activity did not occur on this shift LOCOMOTION: STAIRS - SCORE: 0-UNK COMPREHENSION: COMPREHENSION - SCORE: 0-UNK EXPRESSION EXPRESSION - SCORE: 0-UNK SOCIAL INTERACTION: SOCIAL INTERACTION - SCORE: 0-UNK PROBLEM SOLVING: PROBLEM SOLVING - SCORE: 0-UNK MEMORY: MEMORY - SCORE: 0-UNK SIGNATURE PANEL: The following modified sections: Transfers: Bed, Chair, Wheelchair - Score, Transfers: Toilet - Score , Locomotion: Walk - Score, Locomotion: Wheelchair - Score, Locomotion: Stairs - Score were [cheri [email or web address]] signed by Mert Ferguson PTA on ThuSep 14 2018 15:40:31 [id number] (Central Daylight Time)
--- NOTE | 2018-09-16 18:38 | R.DS ---
FACILITY [facility] MR# [id number] NAME EVANS THOMAS ADDRESS [address] [place] [address] [address] [id number] PHONE DATE OF 1930 AGE 88 SSN# [id number] GENDER Male DEXTERITY Right-handed MARITAL STATUS RACE White ENCOUNTER PHYSICIAN Dr. Deandre Solis M.D. REFERRING DOCTOR Yisel Bell REFERRING FACILITY [facility] DISCHARGE DIAGNOSIS: - Stroke 01 - Right Body (Left Brain) (01.2) ACUTE LEFT PARIETAL LOBE INFARCTION. 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) - N/A CAD ANGINA HYPERTENSION HYPERLIPIDEMIA COLON CA CKD STAGE 3 SKIN CANCER DYSPNEA ESRDA ADD/ADHD ANEMIA CHF DATE OF ADMISSION 09/03/2018 17:45 (CDT) MEDICATION ALLERGIES: DOXYCYCLINE Iodine ENVIRONMENTAL ALLERGIES: None Known - Substance Allergies None Known - Other Allergies None Known NURSING: - Shower allowing shower - Bladder care per protocol - Skin care per protocol PRECAUTIONS: - Weight Bearing Precaution WBAT left LE ACTIVITIES OOB only with supervision THERAPIES: - Occupational Therapy Evaluate and Treat Visual Perceptual Training Cognitive Retraining - Speech Therapy Cognitive Training Memory Strategies Speech Intelligibility Training Expressive Language Skills Receptive Language Skills - Physical Therapy Evaluate and Treat HISTORY OF PRESENT ILLNESS: Pt. is a 88 yo Right-handed white male.On 09/01/2018 Pt. presented to [facility] with sudden onset of right-side weakness.On 09/01/2018 he was admitted to [facility] with diagnosis ACUTE LEFT PARIETAL LOBE INFARCTION.His impairment category is Stroke 01 - Ri ght Body (Left Brain) (01.2).Pre-morbidly, Pt. was independent/mod-I in Self-Care, Sphincter Control, and Social Cognition; and he had good Sphincter Control.Currently, he has deficits of Transfers Cont rol, Locomotion, Communication, Endurance, Balance, Safety Awareness, and Self-Care.Pt. is now referr ed to [facility] for acute in-patient rehabilitation in order to maximize sandra ent's functional independence in activities of daily living, strength, ROM, and mobility.- Rehab Goal Patient has realistic goal of being discharged at assistance level 3-modA to reside at Home with Fam ming/Relatives. Evans Thomas is an 88 year old male that lives in a two sandy home with spouse and family. Patient manages to ambulate without assistive device. On 09/01/2018, he started to have slurred speech and was admitted to [facility] and treated. He is now medically stable but in need of 24-hour nursing, doctor supervision and oversite while receiving acti ve and ongoing intensive PT, OT expected to participate in 3hours of therapy a day/15 hours per week and receive care with an intensive interdisciplinary approach.HOSPITAL COURSE: DIET - LIQUID TEXTURE: On 09/03/2018 Pt was upgraded to Regular Diet - Liquid Texture. DIET - SOLID TEXTURE: On 09/03/2018 Pt was upgraded to Regular Diet - Solid Texture. DIET TYPE: On 09/03/2018 Pt was upgraded to Regular Diet Type. TUBE FEED: On 09/03/2018 Pt was changed to N/A Tube Feed. WEIGHT BEARING PRECAUTION: On 09/04/2018 the following precautions were added for the patient: Weight Bearing Precaution - WBAT left LE, and Weight Bearing Precaution - WBAT left LE. On 09/06/2018 the following precautions were removed for the patient: Weight Bearing Precaution - WB AT left LE. On 09/07/2018 the following precautions were added for the patient: Weight Bearing Precaution - WBAT left LE. DISCHARGE PHYSICAL EXAM - Gen Alert and awake Lying in bed No apparent distress Oriented to: person, time, and place - Skin No breakdown Normacephalic - Eyes No abnormalities - ENMT No abnormalities - Neck No abnormalities - CVS RRR - Chest No abnormalities - Resp Clear to auscultation - Abd +bowel sounds - GI Soft Deferred - Little urine production. On hemodialysis three times weekly. - Ext No significant edema - MSK 5-/5 weakness in left upper and lower extremity - Neuro Aphasia, dysarthria, 5-/5 strength left upper and lower extremities. Unsteady gait. - Psych Mild depression. FUNCTIONAL STATUS: - Self-Care A. Eating 7-Ind B. Grooming 7-Ind C. Bathing 5-sup D. Dressing - Upper 5-sup E. Dressing - Lower 4-Gale F. Toileting 4-Gale - Sphincter Control G: Bladder control 7-Ind H: Bowel control 7-Ind - Transfers Control I. Bed/Chair/Wheelchair 2-maxA J. Toilet 2-maxA K. Tub/Shower 0-ADNO - Locomotion L. Walk/Wheelchair (C) 2-maxA L. Walk/Wheelchair (W) 2-maxA M. Stairs 0-ADNO - Communication N. Comprehension (B) 4-Gale O. Expression (B) 3-modA - Social Cognition P. Social Interaction 6-Princess Q. Problem Solving 6-Princess R. Memory 6-Princess - Endurance Fair - Balance Fair - Safety Awareness Fair DISCHARGE INSTRUCTIONS: - N/A Mobilization. DISCHARGE PLAN, FOLLOW UP CARE PROVISIONS: - Estimated Length of Stay (days) 17. - Consensus on plan Discharge plan has been discussed with primary caregiver. Patient/Family is in agreement with the cami n. Primary caregiver is in agreement with the plan. - Patient/Family Goals Return home with assistance. - Planned Living Setting Upon Discharge Home, to live with Family/Relatives. Transitional Living. SIGNATURE PANEL: (CDT)
== END 2018-09-13 20:07 | disposition short-term general hospital (02) | DRG 56 ==
LOC: 5TH 17:58
PROVIDERS: ADMIT Psychiatry & Neurology Neurology with Special Qualifications in Child Neurology; ATTEND Psychiatry & Neurology Neurology with Special Qualifications in Child Neurology
PROC: 5A1D70Z Performance of Urinary Filtration, Intermittent, Less than 6 Hours Per Day (ICD-10-PCS; 2018-09-04)
PROC: 5A1D70Z Performance of Urinary Filtration, Intermittent, Less than 6 Hours Per Day (ICD-10-PCS; 2018-09-06)
PROC: 0HBRXZZ Excision of Toe Nail, External Approach (ICD-10-PCS; principal; 2018-09-07)
PROC: 5A1D70Z Performance of Urinary Filtration, Intermittent, Less than 6 Hours Per Day (ICD-10-PCS; 2018-09-08)
PROC: 5A1D70Z Performance of Urinary Filtration, Intermittent, Less than 6 Hours Per Day (ICD-10-PCS; 2018-09-10)
PROC: 5A1D70Z Performance of Urinary Filtration, Intermittent, Less than 6 Hours Per Day (ICD-10-PCS; 2018-09-13)
DX: I69.351 Hemiplegia and hemiparesis following cerebral infarction affecting right dominant side (principal); N18.6 End stage renal disease; I50.43 Acute on chronic combined systolic (congestive) and diastolic (congestive) heart failure; I13.2 Hypertensive heart and chronic kidney disease with heart failure and with stage 5 chronic kidney disease, or end stage renal disease; I69.320 Aphasia following cerebral infarction; I25.10 Atherosclerotic heart disease of native coronary artery without angina pectoris; Z99.2 Dependence on renal dialysis; F90.9 Attention-deficit hyperactivity disorder, unspecified type; E78.5 Hyperlipidemia, unspecified; I48.91 Unspecified atrial fibrillation; N25.0 Renal osteodystrophy; I73.9 Peripheral vascular disease, unspecified; E88.09 Other disorders of plasma-protein metabolism, not elsewhere classified; D63.1 Anemia in chronic kidney disease; K59.00 Constipation, unspecified; I70.91 Generalized atherosclerosis; B35.1 Tinea unguium; L60.2 Onychogryphosis
CPT/HCPCS: 36415; 71046; 80048; 80053; 81001; 82040; 83735; 84100; 84132; 84134; 84484; 85025; 86704; 86706; 86803; 87086; 87088; 87340; 87804; 90935; 92507; 92508; 92523; 92526; 92610; 93005; 94640; 97110; 97112; 97116; 97163; 97167; 97530; J0610; J1644

== ENCOUNTER 2018-09-13 15:48 | Observation (INO) | payer OTHER ==
--- OUTSIDE RECORDS SUMMARY | 2018-09-13 20:53 | XMS REPORT | Clinical Summary ---
:1930 Author Organization [facility] Address [address] [place] [address] Care Team Providers Name Role Phone Asked, [...] follow- up MD examination (Primary Dx) after 09/12/2017 Social History Tobacco Use Types Packs/Day Years [...] AGE 65 AND OVER 1995 INFLUENZA VACCINE 01/06/2019 Results Not on fileafter 09/12/2017 Insurance Payer Benefit Plan / Group Subscriber ID Type Phone Address MEDICARE MEDICARE PART A AND B xxxxxxxxxx Medicare [place], [place] AETNA AETNA PPO OPEN CHOICE xxxxxxxxx PPO Advance Directives Patient has advance care planning documents on file. For more information, please contact:[place] [address]
[2018-09-13 23:37] VITALS: BMI 22.6
[2018-09-14] MEDS ORDERED: ONDANSETRON 4 MG/2 ML VIAL IV PRN
[2018-09-14] MEDS ORDERED: MORPHINE 2 MG/ML SYR IV PRN
[2018-09-14] MEDS ORDERED: ACETAMINOPHEN 500 MG TAB PO PRN
[2018-09-14] MEDS ORDERED: MECLIZINE HCL 12.5 MG TAB PO PRN (03:23)
[2018-09-14] MEDS ORDERED: ONDANSETRON 4 MG (ODT) TAB PO PRN (03:23)
[2018-09-14] MEDS ORDERED: BISACODYL 10 MG RC PRN (03:23)
[2018-09-14] MEDS ORDERED: BISACODYL 10 MG RECTAL SUPP PR PRN (03:33)
--- NOTE | 2018-09-14 04:01 | HP ---
Date of Admission: 09/13/2018 Reason For Transfer To General Medical Floor: Hyperkalemia with a potassium of 7.3. History Of Present Illness: This is an 88-year-old gentleman, who was admitted to inpatient rehab af ter being diagnosed with a stroke. He has a history of colon cancer and end-stage renal disease and has been on dialysis Thursday, Thursday, Thursday. He also has hypertension and coronary artery disease . He was up in rehab for the last 10 days. He has been doing fairly well. However, labs in the [facility] revealed that his potassium was initially elevated at 6.8. Repeat potassium level came back at 7.3. It was at that time that decision was made to transfer patient and start hemodialysis. Nephrol laine was consulted and the patient was started on hemodialysis. Post dialysis, the patient's potassiu m has come down to 3.0. Clinically asymptomatic, doing well. We will continue with physical therapy in the a.m. and trying to get the patient transferred back to rehab if indicated. Review of Systems: A 10-point review of systems is otherwise unremarkable. Past Medical History: Positive for coronary artery disease, hypertension, dyslipidemia, colon cancer , end-stage renal disease, squamous cell carcinoma of the skin, congestive heart failure. Past Surgical History: Partial colectomy, skin excisions for squamous cell carcinoma. The patient h as had a right rotator cuff repair. The patient has had a left AV fistula. Allergies: TO TETRACYCLINES AND IODINE. Home Medications: Have been reviewed and are in the chart. Family History: Noncontributory. Physical Examination: Vitals: Reveal temp of 97.4, heart rate 77, respirations 16, blood pressure 130/60, saturating 100%. General: The patient is lying in bed, comfortable, no distress, oriented to person, place, and quest ionable to time. HEENT: Within normal limits. Cardiovascular: Regular rate and rhythm. Systolic ejection murmur 2/6. Lungs: Clear bilaterally. Abdomen: Soft, nontender, nondistended. Bowel sounds positive. Extremities: No clubbing, no cyanosis, no edema. Neurological: Cranial nerves 2-12 are intact. Mo tor is 4/5. Sensory exam is intact to light touch. Skin: No deformities. Laboratory Data: Labs have been reviewed. Assessment: The patient with: 1.Hyperkalemia. 2.End-stage renal disease. 3.Recent diagnosis of CVA. 4.History of coronary artery disease. 5.History of colon cancer. 6.History of squamous cell carcinoma of the skin. Plan: Plan at this time is to reassess the patient's potassium level in the morning. If it is stabl e, then he should be able to go back to rehab. Continue anti-platelet therapy and statin therapy. H old lisinopril for now. Monitor electrolytes and labs in the morning and if rehabs agreeable, we hiren l transfer back up stairs. ANGELIKA/MORENA Voice ID: [id number]
--- NOTE | 2018-09-14 04:16 | PN ---
Date of Progress Note: 09/13/2018 Chief Complaint: Severe hyperkalemia. History Of Present Illness: The patient developed some tremors today, generalized weakness, and fatigue. He denies chest pain, fever or chills. He had routine blood work done and it showed severe hyperkalemia. The patient has multiple medical problems including history of COPD, congestive heart failure with systolic and diastolic dysfunction. He has end-stage renal disease, has been dialysis-dependent, and has been dialyzed 3 times per week. His last dialysis was done on Thursday. Blood work routinely obtained today showed severe hyperkalemia, potassium of 7.3, sodium 138, chloride 98, CO2 29, BUN 79, creatinine 7.10, phosphorus 6.3, and magnesium 2.6. The patient received a STAT dialysis to control hyperkalemia, and had ultrafiltration done to obtain a negative fluid balance. Review of Systems: The patient is lethargic, denies chest pain, although he is complaining of some generalized weakness, tremor, and confusion. Physical Examination: Lungs: Coarse breath sounds bilaterally. Heart: S1, S2. Abdomen: Soft, benign. Extremities: Slight edema. Laboratory Data: Shows potassium 7.3, BUN 79, creatinine 7.10, magnesium 2.6, phosphorus 6.3, hemoglobin 9.9, WBC 5.7, platelet count 328,000. Impression And Plan: 1. Severe hyperkalemia. The patient will have STAT dialysis with 1 potassium dialysis. The patient is dialysis dependent. He received Kayexalate, albuterol inhaler, and calcium gluconate to stabilize potassium, and dialysis will be done to obtain metabolic clearance. After dialysis, the patient will have potassium level re-evaluated. 2. Hypertension. Continue blood pressure medication. 3. Renal osteodystrophy. Phosphorus level is elevated. Adjust binders and continue to monitor calcium and phosphorus level. 4. Anemia. Hemoglobin level satisfactory. Continue erythropoietin stimulating agents. I spent total 36 min including 25 min to coordinate care plan. JEFF/MORENA Voice ID: [id number] Report ID: [id number] GREY
[2018-09-14 05:11] LABS: Absolute Lymphocytes (CBC) 0.4 K/uL (0.7-4.9); Absolute Monocytes 0.3 K/uL (0.1-1.3); Absolute Neutrophil 8.3 K/uL (1.8-8.0); Basophils % 0.3 % (0-1.3); Eosinophils % 0.9 % (0-4.4); Hematocrit 30.8 % (39.6-49.0); Lymphocytes % 4.5 % (15.3-44.8); Monocytes % 2.9 % (3.3-12.3); RBC Red Blood Cell Count 3.31 M/uL (4.33-5.43)
[2018-09-14 05:24] LABS: Phosphorus 4.5 mg/dL (2.5-4.9); Potassium 4.2 mmol/L (3.5-5.1)
[2018-09-14 05:59] LABS: Blood Morphology Comment NOTED (NOT SEEN); Ovalocytes 2+; Platelet Estimate ADEQ
--- NOTE | 2018-09-14 08:12 | P.DS ---
Discharge Date: 09/14/18 Disposition: TRANSFER TO INPATIENT REHAB Discharge Condition: GOOD Consultations: NEPHROLOGY FOR HEMODIALYSIS Brief History of Present Illness: Patient is an 88-year-old gentleman who was admitted for a stroke. During his rehabilitation stay he became hyperkalemic. He was transfer to the floor for hemodialysis. Hospital Course: Patient was hemodialyzed and his potassium is back to normal limits. At this time patient is stable for discharge back to rehabilitation. Vital Signs/Physical Exam: Temp Pulse Resp BP Pulse Ox 97.5 F 71 16 126/60 96 09/14/18 04:00 09/14/18 04:00 09/14/18 04:00 09/14/18 04:00 09/14/18 04:00 General: Alert, In no apparent distress Respiratory: Clear to auscultation bilaterally Laboratory Data at Discharge: WBC 9.1 K/uL (4.3-10.9) D 09/14/18 04:52 Hgb 9.7 g/dL (13.6-17.9) L 09/14/18 04:52 Hct 30.8 % (39.6-49.0) L 09/14/18 04:52 Plt Count 268 K/uL (152-406) 09/14/18 04:52 Sodium 136 mmol/L (136-145) 09/14/18 04:52 Potassium 4.2 mmol/L (3.5-5.1) 09/14/18 04:52 BUN 39 mg/dL (7-18) H 09/14/18 04:52 Creatinine 4.61 mg/dL (0.55-1.3) H D 09/14/18 04:52 Glucose 108 mg/dL (74-106) H 09/14/18 04:52 Phosphorus 4.5 mg/dL (2.5-4.9) 09/14/18 04:52 Magnesium 2.0 mg/dL (1.8-2.4) D 09/14/18 04:52 Home Medications: Atorvastatin Calcium 20 mg PO BEDTIME 09/13/18 Bisacodyl 10 mg RC DAILY PRN 09/13/18 Carvedilol 6.25 mg PO BID 09/13/18 Docusate/Senna [Senokot-S*] 3 tab PO BEDTIME 09/13/18 Duloxetine HCl [Cymbalta] 20 mg PO DAILY 09/13/18 Ferrous Sulfate 325 mg PO DAILY 09/13/18 Gabapentin 100 mg PO BEDTIME 09/13/18 Heparin [Heparin Sodium*] 5,000 unit SQ DAILY 09/13/18 Lisinopril 10 mg PO DAILY 09/13/18 Magnesium Oxide 400 mg PO DAILY 09/13/18 Meclizine HCl [Antivert*] 12.5 mg PO Q4H PRN 09/13/18 Melatonin 3 mg PO BEDTIME 09/13/18 Ondansetron HCl [Zofran] 4 mg PO Q4H PRN 09/13/18 Pantoprazole Sodium [Protonix] 40 mg PO DAILY 09/13/18 Vit A,C & E/Lutein/Minerals [Ocuvite Tablet] 1 tab PO DAILY 09/13/18 Patient Discharge Instructions: OK TO DC IV AND DC to inpatient rehab. FOLLOW- UP WITH PRIMARY CARE PROVIDER IN 1-2 WEEKS. FOLLOW-UP WITH NEUROLOGY AND CARDIOLOGY AN OUTPATIENT. CALL or TEXT DR. JOY AT [phone] IF ANY QUESTIONS REGARDING HOSPITAL STAY. Diet: Renal Activity: Fall precautions Time spent managing pt's care (in minutes): 25
[2018-09-14] MEDS ORDERED: DULOXETINE 20 MG CAP PO SCH (09:00)
[2018-09-14] MEDS ORDERED: LISINOPRIL 10 MG TAB PO SCH (09:00)
[2018-09-14] MEDS ORDERED: CARVEDILOL 6.25 MG TAB PO SCH (09:00)
[2018-09-14] MEDS ORDERED: FERROUS SULFATE 325 MG TAB PO SCH (09:00)
[2018-09-14] MEDS ORDERED: MAGNESIUM OXIDE 400 MG TAB PO SCH (09:00)
[2018-09-14] MEDS ORDERED: PANTOPRAZOLE 40MG TABLET PO SCH (09:00)
[2018-09-14 11:53] VITALS: BP 82/47; TEMP 97
[2018-09-14 12:21] VITALS: O2SAT 100
[2018-09-14] MEDS ORDERED: DOCUSATE NA/SENNA CONC 1 TAB PO SCH (21:00)
[2018-09-14] MEDS ORDERED: MELATONIN 3 MG TABLET PO SCH (21:00)
[2018-09-14] MEDS ORDERED: GABAPENTIN 100 MG CAP PO SCH (21:00)
[2018-09-14] MEDS ORDERED: ATORVASTATIN 20 MG TAB PO SCH (21:00)
== END 2018-09-14 12:17 ==
LOC: INTOOBSV 20:51 → 2ND 20:51
PROVIDERS: ADMIT Psychiatry & Neurology Neurology with Special Qualifications in Child Neurology; ATTEND Hospitalist
PROC: 5A1D70Z Performance of Urinary Filtration, Intermittent, Less than 6 Hours Per Day (ICD-10-PCS; principal; 2018-09-13)
DX: E87.5 Hyperkalemia (principal); I13.2 Hypertensive heart and chronic kidney disease with heart failure and with stage 5 chronic kidney disease, or end stage renal disease; I50.40 Unspecified combined systolic (congestive) and diastolic (congestive) heart failure; N18.6 End stage renal disease; Z99.2 Dependence on renal dialysis
CPT/HCPCS: 85025; 80048 ×2; 36415; 83735; 84100; 97162; 90935; G0379; G0378

== ENCOUNTER 2018-09-14 09:22 | Inpatient (IN) | payer OTHER ==
--- NOTE | 2018-09-14 10:19 | R.PREADM ---
SCREENING DATE AND TIME 09/14/2018 09:30 (CDT) ANTICIPATED REHAB ADMISSION DATE 09/16/2018 REFERRING FACILITY [facility] REFERRAL DATE AND TIME 09/14/2018 09:30 (CDT) REFERRAL ROOM# 204 ACUTE ADMIT DATE 09/01/2018 Previous Rehabilitation(s): No. 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 Deandre Solis M.D. MR# [id number] NAME JOSE ALEJANDRO ROSS ADDRESS [address] [facility] [id number] DATE OF 1930 AGE 88 SSN# [id number] GENDER male MARITAL STATUS RACE white ADMIT FROM 02 - [facility] PRE-HOSPITAL LIVING SETTING 01 - Home (private home/apt. board/care, assisted living, chcf, transitional living) HOME TYPE AND DETAILS Type of home: two sandy # of steps within the residence: 0 # of levels in the residence: 2 # of steps to enter the residence: 4 PRE-HOSPITAL LIVING WITH Family/Relatives FAMILY SUPPORT Yes PRIMARY FAMILY CONTACT NAME Violeta Ruffin PRIMARY FAMILY CONTACT PHONE PHONE PRIMARY FAMILY CONTACT ON ADM.? no IS PRIMARY FAMILY CONTACT AUTH. REP.? no 1ST EMERGENCY CONTACT Violeta Ruffin 1ST CONTACT PHONE PHONE 1ST CONTACT ON ADM. no IS 1ST CONTACT AUTH. REP.? no PHONE 2ND CONTACT ON ADM.? no PATIENT EMPLOYMENT STATUS Retired (for age) PATIENT EMPLOYER No Employer PAYOR INFORMATION: 1ST PAYOR NAME MEDICARE 1ST PAYOR PHONE [phone] 1ST PAYOR INJURY/ILLNESS DUE TO ACCIDENT? No ANOTHER REPUBLICAN RESPONSIBLE? No PRIMARY REHAB/ACUTE DIAGNOSIS: Left MCA ONSET DATE 09/01/2018 REHAB IMPAIRMENT CATEGORY (ROLAND): 01 Stroke (STR) MEETS 60% rule AFFECTED EXTREMITIES: RLE, and RUE PRIMARY DIAGNOSIS-RELATED SURGERIES: N/A COMORBID REHAB/ACUTE DIAGNOSES: - Tier 1 Dependence on renal dialysis (Z99.2) - N/A ESRD CAD ANGINA HYPERTENSION ATRIAL FIBRILLATION COLON CA SKIN CANCER CKD STAGE 3 DYSPNEA ADD/ADHD ANEMIA CHF INTERVENTIONS: - CAD 02 sats Activity management Medications VS - Hypertension Fluid management Medications VS - Atrial Fibrillation Anticoagulation Medications VS RISK FOR COMPLICATIONS: - CAD CHF Cardiac Arrest MA Pain - Hypertension CVA Hypotension MA TIA - Atrial Fibrillation CVA Heart failure Limb embolus SUMMARY OF ACUTE HOSPITALIZATION: Pt. is a 88 yo Right-handed white male. On 09/01/2018 Pt. presented to [facility] with sudden onset of right-side weakn ess. On 09/01/2018 he was admitted to [facility] with diagnosis Left MCA. His impairment category is Stroke 01 - Right Body (Left Brain) (01.2). Pre-morbidly, Pt. was independent/mod-I in Self-Care, Sphincter Control, Transfers Control, Locomotio n, Communication, and Social Cognition; and he had good Sphincter Control. Currently, he has deficits of Transfers Control, Locomotion, Communication, Social Cognition, Enduran ce, Balance, Safety Awareness, and Self-Care. Pt. is now referred to [facility] for acute in-patient rehabilitation in order to maximize patient's functional independence in activities of daily living, strength, ROM, and mobi lity. Patient has realistic goal of being discharged at assistance level 6-Princess to reside at Home with Fam ming/Relatives. PAST MEDICAL HISTORY ADD/ADHD ANEMIA ANGINA ATRIAL FIBRILLATION CAD CHF CKD STAGE 3 COLON CA DYSPNEA Dependence on renal dialysis (Z99.2) ESRD HYPERTENSION SKIN CANCER PAST SURGICAL HISTORY: PART OF COLON REMOVED RIGHT SHOULDER SURGERY LEFT FISTULA RIGHT ROXANA REMOVAL OF SKIN CA FROM LEFT EAR, FACE AND RIGHT HAND MEDICATION ALLERGIES: DOXYCYCLINE Iodine ENVIRONMENTAL ALLERGIES: None Known - Substance Allergies None Known - Other Allergies None Known CODE STATUS: Full code WEIGHT/HEIGHT/BMI: WEIGHT 153 lbs HEIGHT 5' 7" BMI 24 DIET: - Diet Type Regular - Diet - Solid Texture Regular - Diet - Liquid Texture Regular - Tube Feed N/A REVIEW OF SYSTEMS: - Gen Alert and awake Lying in bed No apparent distress Oriented to: person, time, and place - Vital Signs Temperature: 96.9 F SBP/DBP: 120/59 Pulse: 82 Resp: 16 Vital signs stable, afebrile - CVS RRR VITAL SIGNS Temperature: 96.9 F SBP/DBP: 120/59 Pulse: 82 Resp: 16 Vital signs stable, afebrile CURRENT SPHINCTER CONTROL: Pre-hospital bladder status: continent # of bladder accidents in the last 7 days prior to screenin Pre-hospital bowel status: continent # of bowel accidents in the last 7 days prior to screenin Last Bowel Movement Date: 09/14/2018 DETAILED CURRENT FUNCTIONAL STATUS: - Bladder accident frequency: Ind - No accidents in the past 7 days - Bowel accident frequency: Ind - No accidents in the past 7 days - Walking score based on distance walked: 1(<=50ft) - Wheelchair score based on distance traveled: 0(N/A) FUNCTIONAL STATUS: - Self-Care A. Eating Ind Princess B. Grooming Ind sup C. Bathing Ind sup D. Dressing - Upper Ind sup E. Dressing - Lower Ind sup F. Toileting Ind sup - Sphincter Control G: Bladder control Ind Ind H: Bowel control Ind Ind - Transfers Control I. Bed/Chair/Wheelchair Ind maxA J. Toilet Ind maxA K. Tub/Shower Ind ADNO - Locomotion L. Walk/Wheelchair (C) Ind maxA L. Walk/Wheelchair (W) Ind maxA M. Stairs Ind ADNO - Communication N. Comprehension (B) Ind Gale O. Expression (B) Ind Gale - Social Cognition P. Social Interaction Ind Gale Q. Problem Solving Ind modA R. Memory Ind modA - Endurance Fair - Balance Fair - Safety Awareness Fair [facility] DEFICITS: Transfers Control, Locomotion, Communication, Social Cognition, Endurance, Balance, Safety Awareness, and Self-Care THERAPY NOTES FROM ACUTE CARE: Attached. SPECIAL NEEDS: - Safety Concerns Skin breakdown precautions needed due to skin breakdown risk PRECAUTIONS: - Fall Precaution Bed and chair alarm PATIENT NEEDS ACTIVE AND ONGOING THERAPEUTIC INTERVENTION OF MULTIPLE THERAPY DISCIPLINES, INCLUDING: - Occupational Therapy Evaluate and Treat. Visual Perceptual Training. Cognitive Retraining. - Speech Therapy Cognitive Training. Memory Strategies. Speech Intelligibility Training. Expressive Language Skills. R eceptive Language Skills. - Physical Therapy Evaluate and Treat. PATIENT NEEDS CLOSE MEDICAL SUPERVISION BY A REHABILITATION PHYSICIAN FOR: Bowel and Bladder Management Coordination of Treatment Team Medical and Co-Morbidity Management DVT Management Pain Management PATIENT REQUIRES 24X7 REHAB NURSING FOR MEDICAL AND FUNCTIONAL MGT. OF THE FOLLOWING DEFICITS: ADL's Ambulation Bowel and Bladder Management Cognition Communication Disease Management Medication Management Patient/Family Education Providing Safe Environment Transfers Pain Management PATIENT REQUIRES INTENSIVE, COORDINATED INTERDISCIPLINARY APPROACH TO REHAB: Arranging Home Equipment/Services Discharge Planning Family Intervention/Training Fuse Spooler/Case Management PATIENT REHAB POTENTIAL: Expected level of measurable improvement will be of a practical value to patient's functional capacit y or adaptations to impairments Has a viable Discharge Plan Medically appropriate; condition is sufficiently stable to participate in intensive rehab program Patient is able and expected to receive 3 hours of individualized therapy daily on at least 5 of ever y 7 days Patient's prognosis for significant practical improvement within a reasonable period of time appears Good DISCHARGE PLAN: - Estimated Length of Stay (days) 17. - Consensus on plan Discharge plan has been discussed with primary caregiver. Patient/Family is in agreement with the cami n. Primary caregiver is in agreement with the plan. - Patient/Family Goals Return home with assistance. - Planned Living Setting Upon Discharge Home, to live with Family/Relatives. RECOMMENDED CARE LEVEL: IRF RECOMMENDATION DETAILS: Recommended Admission to Comprehensive Rehabilitation Program to Increase Functional [place] SCREENER'S COMPLETENESS CONFIRMATION: - Screening Confirmation The patient data collection on this preadmission screening form is finished PHYSICIANS REVIEW AND ADMISSION DETERMINATION Admit - Based on my review of the Pre-Admission Screening results, in my medical judgment and experie nce, I concur with the findings and recommend admission to [facility], as this patient requires an IRF level of care. SIGNATURE PANEL: Clinical Liaison - [electronically] signed by Eva Ramirez on 09/14/2018 at 10:03 (CDT) Physician Reviewer - [electronically] signed by Dr. Deandre Solis M.D. on 09/14/2018 at 10:18 (CDT )
--- OUTSIDE RECORDS SUMMARY | 2018-09-14 12:43 | XMS REPORT | Clinical Summary ---
:1930 Author Organization [employer] Address [address] [place] [address] Care Team Providers Name Role Phone Asked, [...] follow- up MD examination (Primary Dx) after 09/13/2017 Social History Tobacco Use Types Packs/Day Years [...] INFLUENZA VACCINE 01/06/2019 Results Not on fileafter 09/13/2017 Insurance Payer Benefit Plan / Group Subscriber ID Type Phone Address MEDICARE MEDICARE PART A AND B xxxxxxxxxx Medicare [place], [place] AETNA AETNA PPO OPEN CHOICE xxxxxxxxx PPO Advance Directives Patient has advance care planning documents on file. For more information, please contact:[place] [address]
[2018-09-14] MEDS ORDERED: MECLIZINE HCL 12.5 MG TAB PO PRN (13:16)
--- NOTE | 2018-09-14 18:40 | R.HP ---
FACILITY: [facility] ENCOUNTER DATE AND TIME: 09/14/2018 18:32 (CDT) MR#: [id number] NAME JOSE ALEJANDRO ROSS ADDRESS: [address] [place] [address] CITY: [place] [address] PHONE: DATE OF : 1930 AGE: 88 SSN# [id number] GENDER: Male DEXTERITY Right-handed MARITAL STATUS RACE White PRE-HOSPITAL LIVING SETTING 01 - Home (private home/apt. board/care, assisted living, fci, transitional living) PRE-HOSPITAL LIVING WITH Family/Relatives ENCOUNTER PHYSICIAN: Dr. Deandre Solis M.D. REFERRING DOCTOR: toñito Medrano DATE OF ADMISSION: 09/14/2018 18:33 (Central Daylight Time) REFERRING FACILITY [facility] HOME TYPE AND DETAILS: Type of home: two sandy # of steps within the residence: 0 # of levels in the residence: 2 # of steps to enter the residence: 4 ADMISSION DIAGNOSIS: Left MCA ONSET DATE: 09/01/2018 PRIMARY DIAGNOSIS-RELATED SURGERIES: N/A SECONDARY/COMORBID DIAGNOSES (TIERED): - Tier 1 Dependence on renal dialysis (Z99.2) - N/A ESRD CAD ANGINA HYPERTENSION ATRIAL FIBRILLATION COLON CA SKIN CANCER CKD STAGE 3 DYSPNEA ADD/ADHD ANEMIA CHF HISTORY OF PRESENT ILLNESS (HPI): Pt. is a 88 yo Right-handed white male. On 09/01/2018 Pt. presented to [facility] with sudden onset of right-side weakn ess. On 09/01/2018 he was admitted to [facility] with diagnosis Left MCA. His impairment category is Stroke 01 - Right Body (Left Brain) (01.2). Pre-morbidly, Pt. was independent/mod-I in Self-Care, Sphincter Control, Transfers Control, Locomotio n, Communication, and Social Cognition; and he had good Sphincter Control. Currently, he has deficits of Transfers Control, Locomotion, Communication, Social Cognition, Enduran ce, Balance, Safety Awareness, and Self-Care. Pt. is now referred to [facility] for acute in-patient rehabilitation in order to maximize patient's functional independence in activities of daily living, strength, ROM, and mobi lity. Patient has realistic goal of being discharged at assistance level 6-Princess to reside at Home with Fam ming/Relatives. MEDICATION ALLERGIES: DOXYCYCLINE Iodine ENVIRONMENTAL ALLERGIES: None Known - Substance Allergies None Known - Other Allergies None Known PAST MEDICAL HISTORY: ADD/ADHD ANEMIA ANGINA ATRIAL FIBRILLATION CAD CHF CKD STAGE 3 COLON CA DYSPNEA Dependence on renal dialysis (Z99.2) ESRD HYPERTENSION SKIN CANCER PAST SURGICAL HISTORY: PART OF COLON REMOVED RIGHT SHOULDER SURGERY LEFT FISTULA RIGHT ROXANA REMOVAL OF SKIN CA FROM LEFT EAR, FACE AND RIGHT HAND FAMILY HISTORY: Family history is not contributory. SOCIAL HISTORY: - Home Living Family/Relatives REVIEW OF SYSTEMS: - Gen No Chills Fatigue No Fever - Eyes No Double Vision No itchiness - ENMT Difficulty Swallowing - CVS No Chest Discomfort No Chest Pain Fatigue No Weight Gain - Resp No Cough No Shortness of Breath - GI Continent No Abdominal Pain No Constipation No Diarrhea - Continent No Kidney Pain No Painful Urination No Urinary Urgency - MSK No Joint Pain Muscle Cramps Stiffness - Skin No Itching No Rash No Suspicious Lesions - Neuro Coordination Difficulty Difficulty with Concentration Memory Loss No Seizures Weakness - Psych No Anxiety No Depression No HIV Exposure No Persistent Infections No Seasonal Allergies - Endo No Cold/Heat Intolerance No Excessive Hunger No Excessive Thirst No Excessive Urination PHYSICAL EXAM - Gen Alert and awake Lying in bed No apparent distress Oriented to: person, time, and place - Skin No breakdown No abnormalities - Eyes No abnormalities - ENMT No abnormalities - Neck No abnormalities - CVS RRR - Chest Clear - Abd + bowel sounds - GI nondistended Deferred - No abnormalities - Ext No significant edema - MSK 4+/5 weakness in left upper and lower extremity - Neuro 4/5 strength right upper and lower extremities. Mild expressive and receptive aphasia. - Psych No abnormalities VITAL SIGNS Temperature: 97.2 F SBP/DBP: 128/58 Pulse: 69 Resp: 16 NURSING: - Shower allowing shower - Bladder care per protocol - Skin care per protocol PRECAUTIONS: - Fall Precaution Bed and chair alarm ACTIVITIES OOB only with supervision FUNCTIONAL STATUS: - Self-Care A. Eating Ind Princess B. Grooming Ind sup C. Bathing Ind sup D. Dressing - Upper Ind sup E. Dressing - Lower Ind sup F. Toileting Ind sup - Sphincter Control G: Bladder control Ind Ind H: Bowel control Ind Ind - Transfers Control I. Bed/Chair/Wheelchair Ind maxA J. Toilet Ind maxA K. Tub/Shower Ind ADNO - Locomotion L. Walk/Wheelchair (C) Ind maxA L. Walk/Wheelchair (W) Ind maxA M. Stairs Ind ADNO - Communication N. Comprehension (B) Ind Gale O. Expression (B) Ind Gale - Social Cognition P. Social Interaction Ind Gale Q. Problem Solving Ind modA R. Memory Ind modA - Endurance Fair - Balance Fair - Safety Awareness Fair CURRENT FUNC. DEFICITS: Transfers Control, Locomotion, Communication, Social Cognition, Endurance, Balance, Safety Awareness, and Self-Care ASSESSMENT: Pt. is a 88 yo Right-handed white male.On 09/01/2018 Pt. presented to [facility] with sudden onset of right-side weakness.On 09/01/2018 he was admitted to [facility] with diagnosis Left MCA.His impairment category is Stroke 01 - Right Body (Left Brain) (01.2 ).Pre-morbidly, Pt. was independent/mod-I in Self-Care, Sphincter Control, Transfers Control, Locomot ion, Communication, and Social Cognition; and he had good Sphincter Control.Currently, he has deficit s of Transfers Control, Locomotion, Communication, Social Cognition, Endurance, Balance, Safety Aware ness, and Self-Care.Pt. is now referred to [facility] for acute in-patient giancarlo abilitation in order to maximize patient's functional independence in activities of daily living, str ength, ROM, and mobility.- Rehab Goal Patient has realistic goal of being discharged at assistance level 6-Princess to reside at Home with Fam ming/Relatives. for Dementia, TBI, Stroke, or others - Physical Therapy Gait dysfunction - to improve, our physical therapists will perform initial evaluation of pt's status upon admission and devise an individualized program for Gait Training, and Wheel Chair mobility Inability to transfer - to improve, our physical therapists will perform initial evaluation of pt's s tatus upon admission and devise an individualized program for Bed mobility Need for home safety evaluation - to improve, our physical therapists will perform initial evaluation of pt's status upon admission and devise an individualized program for Home Evaluation Need in caregiver upon discharge - to improve, our physical therapists will perform initial evaluatio n of pt's status upon admission and devise an individualized program for Caregiver Training New precaution - to improve, our physical therapists will perform initial evaluation of pt's status u karin admission and devise an individualized program for Patient precaution education Edema - to improve, our physical therapists will perform initial evaluation of pt's status upon admi ssion and devise an individualized program for Elevation Training, and Lymphedema Therapy Poor balance - to improve, our physical therapists will perform initial evaluation of pt's status upo n admission and devise an individualized program for Balance Training Poor endurance - to improve, our physical therapists will perform initial evaluation of pt's status u karin admission and devise an individualized program for Endurance Training Weakness - to improve, our physical therapists will perform initial evaluation of pt's status upon ad mission and devise an individualized program for Aquatic Therapy, Neuromuscular Reeducation, and Stre ngthening Achieving independence - to improve, our physical therapists will perform initial evaluation of pt's status upon admission and devise an individualized program for Community Reintegration Activities - Occupational Therapy ADL deficits - to improve, our occupation therapists will perform initial evaluation of pt's status u karin admission and devise an individualized program for Bathing, Bed mobility, Community Reintegration , Cooking, Dressing, Eating, Fine Motor Skills, Grooming, Homemaking, Kitchen Mobility, Laundry, Antonette ent Education, Safety Awareness, Splinting - Positioning, Transfers(Toilet, Tub, Shower), and Wheel C hair Management Cognitive deficits - to improve, our occupation therapists will perform initial evaluation of pt's st atus upon admission and devise an individualized program for Cognition - orientation Need for personal care service provider - to improve, our occupation therapists will perform initial evaluation of pt's s tatus upon admission and devise an individualized program for Caregiver Training Weakness - to improve, our occupation therapists will perform initial evaluation of pt's status upon admission and devise an individualized program for Aquatic Therapy, Balance, Endurance, UE ROM, and U E strengthening MEDICAL PLAN: - Diet Type Start Regular - Diet - Liquid Texture Start Regular - Tube Feed Start N/A - Bladder care per protocol - Weight Bearing Precaution WBAT right LE - Fall Precaution Bed and chair alarm - Skin care per protocol - Diet - Solid Texture Regular - Shower shower DISCHARGE PLAN: - Estimated Length of Stay (days) 17. - Consensus on plan Discharge plan has been discussed with primary caregiver. Patient/Family is in agreement with the cami n. Primary caregiver is in agreement with the plan. - Patient/Family Goals Return home with assistance. - Planned Living Setting Upon Discharge Home, to live with Family/Relatives. SIGNATURE PANEL: (CDT)
--- NOTE | 2018-09-14 18:42 | PAPE ---
PATIENT: [facility] MR# [id number] REFERRING DOCTOR toñito Medrano EVALUATION DATE AND TIME 09/14/2018 18:40 (CDT) NAME JOSE ALEJANDRO ROSS DATE OF 1930 AGE 88 PHONE N# [id number] GENDER male EVALUATING PHYSICIAN Dr. Deandre Solis M.D. 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 PATIENT NEEDS CLOSE MEDICAL SUPERVISION BY A REHABILITATION PHYSICIAN FOR: Bowel and Bladder Management Coordination of Treatment Team Medical and Co-Morbidity Management DVT Management Pain Management PATIENT REQUIRES 24X7 REHAB NURSING FOR MEDICAL AND FUNCTIONAL MGT. OF THE FOLLOWING DEFICITS: ADL's Ambulation Bowel and Bladder Management Cognition Communication Disease Management Medication Management Patient/Family Education Providing Safe Environment Transfers Pain Management PATIENT REQUIRES INTENSIVE, COORDINATED INTERDISCIPLINARY APPROACH TO REHAB: Arranging Home Equipment/Services Discharge Planning Family Intervention/Training Plant Utilities Engineer/Case Management LIST OF IDENTIFIED AND POTENTIAL PROBLEMS: Alteration in leisure activities Bladder, Incontinence Blood Pressure, Hypertension/hypotension Issues Bowel, Incontinence Fluid volume overload related to Congestive Heart Failure (CHF) Infection, Actual or Potential Mobility Impaired Pain, Alteration in Comfort Self Care Deficit Skin Integrity, Actual or Potential Urinary Tract Infection (UTI), Actual or Potential RISK FOR COMPLICATIONS - CAD CHF. Cardiac Arrest. ID. Pain. - Hypertension CVA. Hypotension. ID. TIA. - Atrial Fibrillation CVA. Heart failure. Limb embolus. INTERVENTIONS - CAD 02 sats. Activity management. Medications. VS. - Hypertension - Atrial Fibrillation Anticoagulation. Medications. VS. PATIENT COULD BE AT RISK FOR COMPLICATIONS FROM ADVERSE MEDICAL CONDITIONS DUE TO HIS/HER COMORBIDITI ES AND THE RIGORS OF THE INTENSIVE REHABILLITATION PROGRAM. METHODS OR INTERVENTIONS TO AVOID COMPLIC ATIONS INCLUDE: - Deep Vein Thrombosis (DVT) Prophylaxis therapy for prevention . Sequential Compression Device (SCD). TE D Hose. - Bleeding Stroke patients assessed for lethargy or change in status. - Infection Clinical staff to assess and manage the signs and symptoms of infection including fever, redness, war mth, etc. - Urinary Tract Infection - Aspiration Clinical staff will assess and manage coughing, drooling, congestion. - Falls Patient will be evaluated for Fall Precautions and will be placed on Fall Precautions as indicated pe r protocol. - Skin Breakdown Nursing will assess skin daily using assessment tool and will place on Skin Breakdown Precautions as indicated per protocol. - Pain Clinical staff may employ non-medication methods such as massage, distraction, decrease stimulus, etc . as needed. Clinical staff will assess patient's pain level every shift per protocol to assess and e nsure pain management effectiveness. Medications will be given and the pain level re-assessed. PRELIMINARY PLAN OF CARE: - Physical Therapy Patient needs Physical Therapy for a daily minimum of 1.5 hours at least 5 out of 7 days, to improve: Mobility, Strengthening, Transfers, Stretching, ROM, Endurance, Ability to manage stairs, Gait, and Balance. - Speech Therapy Patient needs Speech Therapy for a daily minimum of 0.5 hours at least 5 out of 7 days, to improve: S wallowing, Cognition, Language Skills, and Compensatory Strategies. - Rehabilitation Nursing Patient requires 24x7 Rehabilitation Nursing for: Pain Issues, Identifying and preventing risk factor s, Monitoring and reporting current medical conditions, Assisting with ambulation and transfer, Marlen ting with all ADL-s, Teaching patients about disease process and medications, Family teaching, Provid ing safe environment, Bowel and Bladder Issues, Skin Integrity, and Medication Management. Patient needs Plant Utilities Engineer and/or Case Management for: Discharge Planning, Arranging Home Equipmen t or Services, and Family Interventions. - Dietary and Nutrition Services Patient needs Dietary and Nutrition Services for: Adequate Nutrition, Nutritional Supplements, and Nu tritional Education. - Occupational Therapy Patient needs Occupational Therapy for a daily minimum of 1.5 hours at least 5 out of 7 days, to impr ove Activities of Daily Living, including: Eating, Grooming, Bathing, Dressing, Toileting, Toilet Tra nsfers, Community Reintegration, Higher functional activities, Adaptive Equipment, Splinting, Househo ld Tasks, and Other activities as determined. POTENTIAL FUNCTIONAL GOALS FOR PATIENT TO ACHIEVE BY DISCHARGE: - Safety Precaution Patient will remain free from falls or injury at time of discharge. - Bed Mobility Patient will perform bed mobility at 4-Gale level of assistance. - Transfers Patient will complete transfers from bed to chair at 4-Gale level of assistance. - Mobility Patient will ambulate 150 ft with 4-Gale level of assistance with RW. PATIENT REHAB POTENTIAL Expected level of measurable improvement will be of a practical value to patient's functional capacit y or adaptations to impairments Has a viable Discharge Plan Medically appropriate; condition is sufficiently stable to participate in intensive rehab program Patient is able and expected to receive 3 hours of individualized therapy daily on at least 5 of ever y 7 days Patient's prognosis for significant practical improvement within a reasonable period of time appears Good DISCHARGE PLAN: - Estimated Length of Stay (days) 17. - Consensus on plan Discharge plan has been discussed with primary caregiver. Patient/Family is in agreement with the cami n. Primary caregiver is in agreement with the plan. - Patient/Family Goals Return home with assistance. - Planned Living Setting Upon Discharge Home, to live with Family/Relatives. CONCLUSION ON REHABILITATION NECESSITY: I have evaluated patient's pre-admission functional status and, comparing it to the patient's post-ad mission functional status now, I conclude that the pre-admission assessment was accurate. Patient's c ondition on admission supports the medical necessity of admission to IRF. It is safe to proceed with patient's therapy program. SIGNATURE PANEL: (CDT)
[2018-09-14] MEDS: CARVEDILOL 6.25 MG TAB PO SCH (20:00)
[2018-09-14] MEDS: DOCUSATE NA/SENNA CONC 1 TAB PO SCH (20:49)
[2018-09-14] MEDS: MELATONIN 3 MG TABLET PO SCH (20:49)
[2018-09-14] MEDS: ATORVASTATIN 20 MG TAB PO SCH (20:49)
[2018-09-14] MEDS: GABAPENTIN 100 MG CAP PO SCH (20:49)
--- NOTE | 2018-09-15 01:45 | FAST ---
SHIFT START DATE/TIME: 09/14/2018 19:00 (CDT) SHIFT END DATE/TIME: 09/15/2018 07:00 (CDT) NAME JOSE ALEJANDRO ROSS DATE OF : 1930 DATE OF ADMISSION: 09/14/2018 18:33 (CDT) PHONE: AGE: 88 N# [id number] GENDER: Male ENCOUNTER PHYSICIAN: Dr. Deandre Solis M.D. 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 EATING: Activity did not occur on this shift EATING - SCORE: 0-UNK GROOMING: Activity did not occur on this shift GROOMING - SCORE: 0-UNK BATHING: Activity did not occur on this shift BATHING - SCORE: 0-UNK DRESSING - UPPER BODY: Patient is not dressing in public clothing ARTICLES SCORE Total number of steps: 0 DRESSING - UPPER BODY - SCORE: 0-UNK DRESSING - LOWER BODY: Patient is not dressing in public clothing ARTICLES SCORE Total number of steps: 0 DRESSING - LOWER BODY - SCORE: 0-UNK TOILETING: TOILETING - STEP 1: Does the patient require the assistance of a person or device, or need extra time with toileting? Yes . TOILETING - STEP 2: Does the patient require the assistance of a helper? Yes. TOILETING - STEP 3: How much assistance does the patient require from the helper? Hands-on assistance from the helper TOILETING - STEP 4: Of the 3 tasks: 1) Adjusting clothing prior to use, 2) Cleansing of perineal area, 3) Adjusting clot dileep after use; How many tasks does the patient perform WITHOUT assistance of the helper? Three tasks with steadying assistance from the helper TOILETING - SCORE: 4-MIN BLADDER MANAGEMENT: BLADDER MANAGEMENT - STEP 1: Does the patient control the bladder completely and intentionally without equipment or devices or med ications, and is always continent? No. BLADDER MANAGEMENT - STEP 2: Does the patient require the assistance of a helper? Yes. BLADDER MANAGEMENT - STEP 3: How much assistance does the patient require from the helper? Only supervision, stand-by, cuing, or c oaxing BLADDER MANAGEMENT - SCORE: 5-SUP BOWEL MANAGEMENT: BOWEL MANAGEMENT - STEP 1: Does the patient control bowels completely and intentionally without equipment devices or medications AND is always continent? No. BOWEL MANAGEMENT - STEP 2: Does the patient require the assistance of a helper? No, patient requires medication for control such as stool softeners, suppositories, laxatives, enemas, or OTC medications BOWEL MANAGEMENT - SCORE: 6-CATHY TRANSFERS: BED, CHAIR, WHEELCHAIR: TRANSFERS: BED, CHAIR, WHEELCHAIR - STEP 1: Does the patient require assistance of a person or device, or need extra time with bed, chair, or whe elchair transfers? Yes. TRANSFERS: BED, CHAIR, WHEELCHAIR - STEP 2: Does the patient require the assistance of a helper? Yes. TRANSFERS: BED, CHAIR, WHEELCHAIR - STEP 3: How much assistance does the patient require from the helper? Lifting of the legs TRANSFERS: BED, CHAIR, WHEELCHAIR - STEP 4: How many legs does the patient require the helper to lift? both legs TRANSFERS: BED, CHAIR, WHEELCHAIR - SCORE: 3-MOD TRANSFERS: TOILET: TRANSFERS: TOILET - STEP 1: Does the patient require the assistance of a person or device, or need extra time with toilet transfe rs? Yes. TRANSFERS: TOILET - STEP 2: Does the patient require the assistance of a helper? Yes. TRANSFERS: TOILET - STEP 3: How much assistance does the patient require from the helper? Patient performs half or more of the tr ansferring tasks TRANSFERS: TOILET - STEP 4: Does the patient need only incidental help such as contact guard or steadying during toilet transfer? Yes. TRANSFERS: TOILET - SCORE: 4-MIN TRANSFERS: SHOWER: Activity did not occur on this shift TRANSFERS: SHOWER - SCORE: 0-UNK TRANSFERS: TUB: Activity did not occur on this shift TRANSFERS: TUB - SCORE: 0-UNK LOCOMOTION: WALK: Activity did not occur on this shift LOCOMOTION: WALK - SCORE: 0-UNK LOCOMOTION: WHEELCHAIR: Activity did not occur on this shift LOCOMOTION: WHEELCHAIR - SCORE: 0-UNK COMPREHENSION: COMPREHENSION: TYPE: Both COMPREHENSION - STEP 1: Does the patient require help from a person or device, or need extra time to understand complex and a bstract ideas (such as current events, finances, discharge planning, medical issues, relationships, e tc)? Yes. COMPREHENSION - STEP 2: Does the patient require help to understand questions or statements about basic needs or ideas (such as hunger, thirst, sleep, safety, daily schedule, room location, or discomfort) half or more of the t ezio? No. COMPREHENSION - STEP 3: How often does the patient need help to understand directions and conversation about basic needs? 10% - 24% of the time COMPREHENSION - SCORE: 4-MIN EXPRESSION EXPRESSION: TYPE: Both EXPRESSION - STEP 1: Does the patient require help from a person or device, or need extra time expressing complex and abst ract ideas (such as current events, finances, discharge planning, medical issues, relationships, etc) ? No. EXPRESSION - STEP 2: Does the patient need extra time, require an assistive device (such as augmentive communication syste m or a communication board), OR does s/he have mild difficulty expressing complex and abstract ideas (including mild dysarthria or mild word-find problems)? Yes. EXPRESSION - SCORE: 6-CATHY SOCIAL INTERACTION: SOCIAL INTERACTION - STEP 1: Does the patient require a helper to interact with others in social and therapeutic situations? No. SOCIAL INTERACTION - STEP 2: Does the patient need extra time in social situations, OR does s/he interact with staff, other patien ts, and family members ONLY in structured environments, OR does s/he require medication for social in teraction? Yes, patient needs extra time SOCIAL INTERACTION - SCORE: 6-CATHY PROBLEM SOLVING: PROBLEM SOLVING - STEP 1: Does the patient need help from a person or device, or need extra time to solve complex problems such as managing a checking account or confronting interpersonal problems? Yes. PROBLEM SOLVING - STEP 2: Does the patient solve basic routine problems half or more of the time? Yes. PROBLEM SOLVING - STEP 3: How often does the patient need help to solve basic routine problems? 25%-49% of the time PROBLEM SOLVING - SCORE: 3-MOD MEMORY: MEMORY - STEP 1: Does the patient need help from a person or device, or need extra time to remember frequently encount ered people, daily routines, and executing requests? Yes. MEMORY - STEP 2: How often does the patient need help to remember frequently encountered people, daily routines, and e xecuting requests? 25% - 49% of the time MEMORY - SCORE: 3-MOD SIGNATURE PANEL: The following modified sections: Eating - Score, Grooming - Score, Dressing - Upper Body - Score, Kyrie ssing - Lower Body - Score, Toileting - Score, Bladder Management - Score, Bowel Management - Score, Transfers: Bed, Chair, Wheelchair - Score, Transfers: Toilet - Score, Transfers: Shower - Score, [place] sfers: Tub - Score, Locomotion: Walk - Score, Locomotion: Wheelchair - Score, Comprehension - Score, Expression - Score, Social Interaction - Score, Problem Solving - Score, Memory - Score were [electro nically] signed by Carmen Caal CNA on ThuSep 15 2018 01:44:17 GMT-0500 (Central Daylight Time)
[2018-09-15 06:41] LABS: Absolute Lymphocytes (CBC) 1.2 K/uL (0.7-4.9); Absolute Monocytes 0.5 K/uL (0.1-1.3); Absolute Neutrophil 3.3 K/uL (1.8-8.0); Basophils % 1.1 % (0-1.3); Eosinophils % 3.2 % (0-4.4); Hematocrit 28.4 % (39.6-49.0); Lymphocytes % 22.5 % (15.3-44.8); MPV 7.1 fL (7.6-11.3); Monocytes % 9.5 % (3.3-12.3); RBC Red Blood Cell Count 3.09 M/uL (4.33-5.43)
[2018-09-15 06:43] LABS: Albumin 2.5 g/dL (3.4-5.0); Magnesium 2.2 mg/dL (1.8-2.4); Prealbumin 11.6 mg/dL (20-40)
[2018-09-15] MEDS: ONDANSETRON 4 MG (ODT) TAB PO PRN (07:28)
[2018-09-15] MEDS: PANTOPRAZOLE 40MG TABLET PO SCH (07:28)
[2018-09-15] MEDS: CARVEDILOL 6.25 MG TAB PO SCH ×2 (08:00→20:15)
[2018-09-15] MEDS: LISINOPRIL 10 MG TAB PO SCH (08:00)
[2018-09-15] MEDS: MAGNESIUM OXIDE 400 MG TAB PO SCH (08:32)
[2018-09-15] MEDS: FERROUS SULFATE 325 MG TAB PO SCH (08:32)
[2018-09-15] MEDS: CYANOCOBALAMIN 1,000 MCG TAB PO SCH (08:33)
[2018-09-15] MEDS: OCUVITE (VIT A,C & E/LUTEIN/MINERAL) TABLET PO SCH (08:33)
[2018-09-15] MEDS: HEPARIN 5000 UNIT/ML 1 ML VIAL SQ SCH (09:04)
--- NOTE | 2018-09-15 10:15 | FAST ---
SHIFT START DATE/TIME: 09/15/2018 07:00 (CDT) SHIFT END DATE/TIME: 09/15/2018 19:00 (CDT) NAME JOSE ALEJANDRO ROSS DATE OF : 1930 DATE OF ADMISSION: 09/14/2018 18:33 (CDT) PHONE: AGE: 88 N# [id number] GENDER: Male ENCOUNTER PHYSICIAN: Dr. Deandre Solis M.D. 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 EATING: EATING - STEP 1: Does the patient require the assistance of a person or device, or need extra time when eating? Yes. EATING - STEP 2: Does the patient require the assistance of a helper? Yes. EATING - STEP 3: Does the patient perform half or more of the eating tasks? Yes. EATING - STEP 4: Does the patient need only supervision, cuing, coaxing OR help to apply an orthosis OR help to cut fo od, open containers, pour liquids, or butter bread? Yes. EATING - SCORE: 5-SUP GROOMING: Comb/brush hair Oral care Wash, rinse, and dry face Wash, rinse, and dry hands GROOMING - STEP 1: Does the patient require the assistance of a person or device, or need extra time when grooming? Yes. GROOMING - STEP 2: Does the patient require the assistance of a helper? Yes. GROOMING - STEP 3: How much assistance does the patient require from the helper? Cuing, coaxing, instructions, or encour agement for completion of grooming GROOMING - SCORE: 5-SUP BATHING: Activity did not occur on this shift BATHING - SCORE: 0-UNK DRESSING - UPPER BODY: Activity did not occur on this shift ARTICLES SCORE Total number of steps: 0 DRESSING - UPPER BODY - SCORE: 0-UNK DRESSING - LOWER BODY: Activity did not occur on this shift ARTICLES SCORE Total number of steps: 0 DRESSING - LOWER BODY - SCORE: 0-UNK TOILETING: TOILETING - STEP 1: Does the patient require the assistance of a person or device, or need extra time with toileting? Yes . TOILETING - STEP 2: Does the patient require the assistance of a helper? Yes. TOILETING - STEP 3: How much assistance does the patient require from the helper? Hands-on assistance from the helper TOILETING - STEP 4: Of the 3 tasks: 1) Adjusting clothing prior to use, 2) Cleansing of perineal area, 3) Adjusting clot dileep after use; How many tasks does the patient perform WITHOUT assistance of the helper? Three tasks with steadying assistance from the helper TOILETING - SCORE: 4-MIN BLADDER MANAGEMENT: BLADDER MANAGEMENT - STEP 1: Does the patient control the bladder completely and intentionally without equipment or devices or med ications, and is always continent? No. BLADDER MANAGEMENT - STEP 2: Does the patient require the assistance of a helper? No, patient requires and independently uses an a ssistive device, such as a urinal, bedpan, bedside commode, catheter, absorbent pad, or collecting de vice BLADDER MANAGEMENT - SCORE: 6-CATHY BOWEL MANAGEMENT: Activity did not occur on this shift BOWEL MANAGEMENT - SCORE: 7-IND TRANSFERS: BED, CHAIR, WHEELCHAIR: TRANSFERS: BED, CHAIR, WHEELCHAIR - STEP 1: Does the patient require assistance of a person or device, or need extra time with bed, chair, or whe elchair transfers? Yes. TRANSFERS: BED, CHAIR, WHEELCHAIR - STEP 2: Does the patient require the assistance of a helper? Yes. TRANSFERS: BED, CHAIR, WHEELCHAIR - STEP 3: How much assistance does the patient require from the helper? Steadying/guiding assistance TRANSFERS: BED, CHAIR, WHEELCHAIR - SCORE: 4-MIN TRANSFERS: TOILET: TRANSFERS: TOILET - STEP 1: Does the patient require the assistance of a person or device, or need extra time with toilet transfe rs? Yes. TRANSFERS: TOILET - STEP 2: Does the patient require the assistance of a helper? Yes. TRANSFERS: TOILET - STEP 3: How much assistance does the patient require from the helper? Patient performs half or more of the tr ansferring tasks TRANSFERS: TOILET - STEP 4: Does the patient need only incidental help such as contact guard or steadying during toilet transfer? Yes. TRANSFERS: TOILET - SCORE: 4-MIN TRANSFERS: SHOWER: Activity did not occur on this shift TRANSFERS: SHOWER - SCORE: 0-UNK TRANSFERS: TUB: Activity did not occur on this shift TRANSFERS: TUB - SCORE: 0-UNK LOCOMOTION: WALK: Activity did not occur on this shift LOCOMOTION: WALK - SCORE: 0-UNK LOCOMOTION: WHEELCHAIR: Activity did not occur on this shift LOCOMOTION: WHEELCHAIR - SCORE: 0-UNK COMPREHENSION: COMPREHENSION: TYPE: Both COMPREHENSION - STEP 1: Does the patient require help from a person or device, or need extra time to understand complex and a bstract ideas (such as current events, finances, discharge planning, medical issues, relationships, e tc)? Yes. COMPREHENSION - STEP 2: Does the patient require help to understand questions or statements about basic needs or ideas (such as hunger, thirst, sleep, safety, daily schedule, room location, or discomfort) half or more of the t ezio? No. COMPREHENSION - STEP 3: How often does the patient need help to understand directions and conversation about basic needs? 25% - 49% of the time COMPREHENSION - SCORE: 3-MOD EXPRESSION EXPRESSION: TYPE: Both EXPRESSION - STEP 1: Does the patient require help from a person or device, or need extra time expressing complex and abst ract ideas (such as current events, finances, discharge planning, medical issues, relationships, etc) ? Yes. EXPRESSION - STEP 2: Does the patient require help to express basic necessities or ideas (such as hunger, thirst, sleep, s afety, daily schedule, room location, or discomfort) half or more of the time? No. EXPRESSION - STEP 3: How often does the patient need help to express directions and conversation about basic needs? 25-49% of the time EXPRESSION - SCORE: 3-MOD SOCIAL INTERACTION: SOCIAL INTERACTION - STEP 1: Does the patient require a helper to interact with others in social and therapeutic situations? Yes. SOCIAL INTERACTION - STEP 2: Does the patient interact appropriately half or more of the time? Yes. SOCIAL INTERACTION - STEP 3: How often does the patient need help to interact appropriately? 25-49% of the time SOCIAL INTERACTION - SCORE: 3-MOD PROBLEM SOLVING: PROBLEM SOLVING - STEP 1: Does the patient need help from a person or device, or need extra time to solve complex problems such as managing a checking account or confronting interpersonal problems? Yes. PROBLEM SOLVING - STEP 2: Does the patient solve basic routine problems half or more of the time? Yes. PROBLEM SOLVING - STEP 3: How often does the patient need help to solve basic routine problems? 25%-49% of the time PROBLEM SOLVING - SCORE: 3-MOD MEMORY: MEMORY - STEP 1: Does the patient need help from a person or device, or need extra time to remember frequently encount ered people, daily routines, and executing requests? Yes. MEMORY - STEP 2: How often does the patient need help to remember frequently encountered people, daily routines, and e xecuting requests? 25% - 49% of the time MEMORY - SCORE: 3-MOD SIGNATURE PANEL: The following modified sections: Eating - Score, Grooming - Score, Bathing - Score, Dressing - Upper Body - Score, Dressing - Lower Body - Score, Toileting - Score, Bladder Management - Score, Bowel Man agement - Score, Transfers: Bed, Chair, Wheelchair - Score, Transfers: Toilet - Score, Transfers: Rupa wer - Score, Transfers: Tub - Score, Locomotion: Walk - Score, Locomotion: Wheelchair - Score, Compre hension - Score, Expression - Score, Social Interaction - Score, Problem Solving - Score, Memory - Sc ore were [electronically] signed by Jarad Chaney on ThuSep 15 2018 10:14:32 T-0500 (Central Daylight Time)
--- NOTE | 2018-09-15 16:00 | FAST ---
ENCOUNTER DATE AND TIME: 09/15/2018 08:00 (CDT) NAME JOSE ALEJANDRO ROSS DATE OF : 1930 DATE OF ADMISSION: 09/14/2018 18:33 (CDT) PHONE: AGE: 88 N# [id number] GENDER: Male ENCOUNTER PHYSICIAN: Dr. Deandre Solis M.D. 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 EATING: Activity did not occur on this shift EATING - SCORE: 0-UNK GROOMING: Activity did not occur on this shift GROOMING - SCORE: 0-UNK BATHING: Activity did not occur on this shift BATHING - SCORE: 0-UNK DRESSING - UPPER BODY: Activity did not occur on this shift Patient is not dressing in public clothing ARTICLES SCORE Total number of steps: 0 DRESSING - UPPER BODY - SCORE: 0-UNK DRESSING - LOWER BODY: Activity did not occur on this shift Patient is not dressing in public clothing ARTICLES SCORE Total number of steps: 0 DRESSING - LOWER BODY - SCORE: 0-UNK TOILETING: Activity did not occur on this shift TOILETING - SCORE: 0-UNK BLADDER MANAGEMENT: Activity did not occur on this shift BLADDER MANAGEMENT - SCORE: 7-IND BOWEL MANAGEMENT: Activity did not occur on this shift BOWEL MANAGEMENT - SCORE: 7-IND TRANSFERS: BED, CHAIR, WHEELCHAIR: TRANSFERS: BED, CHAIR, WHEELCHAIR - STEP 1: Does the patient require assistance of a person or device, or need extra time with bed, chair, or whe elchair transfers? Yes. TRANSFERS: BED, CHAIR, WHEELCHAIR - STEP 2: Does the patient require the assistance of a helper? Yes. TRANSFERS: BED, CHAIR, WHEELCHAIR - STEP 3: How much assistance does the patient require from the helper? Lifting of the patient TRANSFERS: BED, CHAIR, WHEELCHAIR - STEP 4: Does the helper lift the patient ONLY up? ONLY down? Up AND Down? ONLY up. TRANSFERS: BED, CHAIR, WHEELCHAIR - SCORE: 3-MOD TRANSFERS: TOILET: Activity did not occur on this shift TRANSFERS: TOILET - SCORE: 0-UNK TRANSFERS: SHOWER: Activity did not occur on this shift TRANSFERS: SHOWER - SCORE: 0-UNK TRANSFERS: TUB: Activity did not occur on this shift TRANSFERS: TUB - SCORE: 0-UNK LOCOMOTION: WALK: LOCOMOTION: WALK - STEP 1: Does the patient need help from a person or device, or need extra time to walk 150 feet? Yes. LOCOMOTION: WALK - STEP 2: How much assistance does the patient require to walk a minimum of 150 feet? Only incidental help such as contact guarding or steadying LOCOMOTION: WALK - SCORE: 4-MIN LOCOMOTION: WHEELCHAIR: Activity did not occur on this shift LOCOMOTION: WHEELCHAIR - SCORE: 0-UNK LOCOMOTION: STAIRS: Activity did not occur on this shift LOCOMOTION: STAIRS - SCORE: 0-UNK COMPREHENSION: COMPREHENSION - SCORE: 0-UNK EXPRESSION EXPRESSION - SCORE: 0-UNK SOCIAL INTERACTION: SOCIAL INTERACTION - SCORE: 0-UNK PROBLEM SOLVING: PROBLEM SOLVING - SCORE: 0-UNK MEMORY: MEMORY - SCORE: 0-UNK SIGNATURE PANEL: The following modified sections: Transfers: Bed, Chair, Wheelchair - Score, Transfers: Toilet - Score , Locomotion: Walk - Score, Locomotion: Wheelchair - Score, Locomotion: Stairs - Score were [electron genesis] signed by Shorty Fernandez PT on ThuSep 15 2018 16:00:32 T-0500 (Central Daylight Time)
--- NOTE | 2018-09-15 17:59 | PN ---
Date of Progress Note: 09/15/2018 Subjective: The patient was admitted with CVA on rehabilitation. The patient has difficulty swallow ing and feeling weak. Physical Examination: Vital Signs: Blood pressure 105/55, pulse of 64. Chest: Clear to auscultation. Heart: S1 and S2. Systolic murmur. Abdomen: Soft and nontender. Extremities: No edema. Laboratory Data: H and H 8.8/28.4, potassium 4, bicarb 33, BUN 54, creatinine 5.9, calcium 9.3. Current Medications: The patient on its include ferrous sulfate, atorvastatin, carvedilol 6.25, khari nopril 10, gabapentin 100, pantoprazole, docusate, melatonin. Assessment And Plan: 1.End-stage renal disease. We will maintain the patient on dialysis Thursday, Thursday, and Thursday. The patient is scheduled for dialysis today. 2.Secondary hyperparathyroid, stable. No need for binder. 3.Anemia of chronic kidney disease. Resume Epogen. 4.Cerebrovascular accident. Continue supportive care, PT/OT, patient is scheduled for another [facility] study. 5.Deconditioning. Continue PT/OT. 6.Hyperkalemia status post dialysis, recovered, resolved. CHRISTOPHER/MORENA Voice ID: [id number] Report ID: [id number]
[2018-09-15] MEDS: ATORVASTATIN 20 MG TAB PO SCH (20:15)
[2018-09-15] MEDS: DOCUSATE NA/SENNA CONC 1 TAB PO SCH (20:15)
[2018-09-15] MEDS: MELATONIN 3 MG TABLET PO SCH (20:16)
[2018-09-15] MEDS: GABAPENTIN 100 MG CAP PO SCH (20:16)
--- NOTE | 2018-09-16 01:46 | FAST ---
SHIFT START DATE/TIME: 09/15/2018 19:00 (CDT) SHIFT END DATE/TIME: 09/16/2018 07:00 (CDT) NAME JOSE ALEJANDRO ROSS DATE OF : 1930 DATE OF ADMISSION: 09/14/2018 18:33 (CDT) PHONE: AGE: 88 N# [id number] GENDER: Male ENCOUNTER PHYSICIAN: Dr. Deandre Solis M.D. 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 EATING: EATING - STEP 1: Does the patient require the assistance of a person or device, or need extra time when eating? Yes. EATING - STEP 2: Does the patient require the assistance of a helper? Yes. EATING - STEP 3: Does the patient perform half or more of the eating tasks? Yes. EATING - STEP 4: Does the patient need only supervision, cuing, coaxing OR help to apply an orthosis OR help to cut fo od, open containers, pour liquids, or butter bread? Yes. EATING - SCORE: 5-SUP GROOMING: Activity did not occur on this shift GROOMING - SCORE: 0-UNK BATHING: Activity did not occur on this shift BATHING - SCORE: 0-UNK DRESSING - UPPER BODY: Activity did not occur on this shift ARTICLES SCORE Total number of steps: 0 DRESSING - UPPER BODY - SCORE: 0-UNK DRESSING - LOWER BODY: Activity did not occur on this shift ARTICLES SCORE Total number of steps: 0 DRESSING - LOWER BODY - SCORE: 0-UNK TOILETING: TOILETING - STEP 1: Does the patient require the assistance of a person or device, or need extra time with toileting? Yes . TOILETING - STEP 2: Does the patient require the assistance of a helper? Yes. TOILETING - STEP 3: How much assistance does the patient require from the helper? Hands-on assistance from the helper TOILETING - STEP 4: Of the 3 tasks: 1) Adjusting clothing prior to use, 2) Cleansing of perineal area, 3) Adjusting clot dileep after use; How many tasks does the patient perform WITHOUT assistance of the helper? One task TOILETING - SCORE: 2-MAX BLADDER MANAGEMENT: BLADDER MANAGEMENT - STEP 1: Does the patient control the bladder completely and intentionally without equipment or devices or med ications, and is always continent? No. BLADDER MANAGEMENT - STEP 2: Does the patient require the assistance of a helper? Yes. BLADDER MANAGEMENT - STEP 3: How much assistance does the patient require from the helper? Patient requires contact assistance fro m the helper BLADDER MANAGEMENT - STEP 4: How much contact assistance does the patient require from the helper? Patient requires moderate joi tance, and performs 50% to 75% of bladder management tasks - [place] positions AND holds urinal or bed jimenez BLADDER MANAGEMENT - SCORE: 3-MOD BOWEL MANAGEMENT: Activity did not occur on this shift BOWEL MANAGEMENT - SCORE: 7-IND TRANSFERS: BED, CHAIR, WHEELCHAIR: TRANSFERS: BED, CHAIR, WHEELCHAIR - STEP 1: Does the patient require assistance of a person or device, or need extra time with bed, chair, or whe elchair transfers? Yes. TRANSFERS: BED, CHAIR, WHEELCHAIR - STEP 2: Does the patient require the assistance of a helper? Yes. TRANSFERS: BED, CHAIR, WHEELCHAIR - STEP 3: How much assistance does the patient require from the helper? Lifting of the legs TRANSFERS: BED, CHAIR, WHEELCHAIR - STEP 4: How many legs does the patient require the helper to lift? one leg TRANSFERS: BED, CHAIR, WHEELCHAIR - SCORE: 4-MIN TRANSFERS: TOILET: TRANSFERS: TOILET - STEP 1: Does the patient require the assistance of a person or device, or need extra time with toilet transfe rs? Yes. TRANSFERS: TOILET - STEP 2: Does the patient require the assistance of a helper? Yes. TRANSFERS: TOILET - STEP 3: How much assistance does the patient require from the helper? Patient performs half or more of the tr ansferring tasks TRANSFERS: TOILET - STEP 4: Does the patient need only incidental help such as contact guard or steadying during toilet transfer? Yes. TRANSFERS: TOILET - SCORE: 4-MIN TRANSFERS: SHOWER: Activity did not occur on this shift TRANSFERS: SHOWER - SCORE: 0-UNK TRANSFERS: TUB: Activity did not occur on this shift TRANSFERS: TUB - SCORE: 0-UNK LOCOMOTION: WALK: Activity did not occur on this shift LOCOMOTION: WALK - SCORE: 0-UNK LOCOMOTION: WHEELCHAIR: Activity did not occur on this shift LOCOMOTION: WHEELCHAIR - SCORE: 0-UNK COMPREHENSION: COMPREHENSION: TYPE: Both COMPREHENSION - STEP 1: Does the patient require help from a person or device, or need extra time to understand complex and a bstract ideas (such as current events, finances, discharge planning, medical issues, relationships, e tc)? Yes. COMPREHENSION - STEP 2: Does the patient require help to understand questions or statements about basic needs or ideas (such as hunger, thirst, sleep, safety, daily schedule, room location, or discomfort) half or more of the t ezio? No. COMPREHENSION - STEP 3: How often does the patient need help to understand directions and conversation about basic needs? Les s than 10% of the time COMPREHENSION - SCORE: 5-SUP EXPRESSION EXPRESSION: TYPE: Both EXPRESSION - STEP 1: Does the patient require help from a person or device, or need extra time expressing complex and abst ract ideas (such as current events, finances, discharge planning, medical issues, relationships, etc) ? Yes. EXPRESSION - STEP 2: Does the patient require help to express basic necessities or ideas (such as hunger, thirst, sleep, s afety, daily schedule, room location, or discomfort) half or more of the time? No. EXPRESSION - STEP 3: How often does the patient need help to express directions and conversation about basic needs? Less t [place] 10% of the time EXPRESSION - SCORE: 5-SUP SOCIAL INTERACTION: SOCIAL INTERACTION - STEP 1: Does the patient require a helper to interact with others in social and therapeutic situations? Yes. SOCIAL INTERACTION - STEP 2: Does the patient interact appropriately half or more of the time? Yes. SOCIAL INTERACTION - STEP 3: How often does the patient need help to interact appropriately? Less than 10% of the time SOCIAL INTERACTION - SCORE: 5-SUP PROBLEM SOLVING: PROBLEM SOLVING - STEP 1: Does the patient need help from a person or device, or need extra time to solve complex problems such as managing a checking account or confronting interpersonal problems? Yes. PROBLEM SOLVING - STEP 2: Does the patient solve basic routine problems half or more of the time? Yes. PROBLEM SOLVING - STEP 3: How often does the patient need help to solve basic routine problems? Less than 10% of the time PROBLEM SOLVING - SCORE: 5-SUP MEMORY: MEMORY - STEP 1: Does the patient need help from a person or device, or need extra time to remember frequently encount ered people, daily routines, and executing requests? Yes. MEMORY - STEP 2: How often does the patient need help to remember frequently encountered people, daily routines, and e xecuting requests? Less than 10% of the time MEMORY - SCORE: 5-SUP SIGNATURE PANEL: The following modified sections: Eating - Score, Bathing - Score, Dressing - Upper Body - Score, Dres sing - Lower Body - Score, Bowel Management - Score, Transfers: Shower - Score, Transfers: Tub - Scor e, Locomotion: Walk - Score, Locomotion: Wheelchair - Score, Comprehension - Score, Expression - Scor e, Social Interaction - Score, Problem Solving - Score, Memory - Score, Grooming - Score, Toileting - Score, Bladder Management - Score, Transfers: Bed, Chair, Wheelchair - Score, Transfers: Toilet - Sc ore were [electronically] signed by Yasmeen Cano RN on ThuSep 16 2018 01:45:33 T-0500 ([facility] Time)
[2018-09-16] MEDS ORDERED: SIMETHICONE 125 MG TAB PO PRN (05:02)
[2018-09-16] MEDS: SIMETHICONE 80 MG TAB PO PRN (05:20)
[2018-09-16 06:07] LABS: Absolute Lymphocytes (CBC) 0.9 K/uL (0.7-4.9); Absolute Monocytes 0.5 K/uL (0.1-1.3); Absolute Neutrophil 3.6 K/uL (1.8-8.0); Basophils % 1.1 % (0-1.3); Eosinophils % 2.5 % (0-4.4); Hematocrit 27.7 % (39.6-49.0); Lymphocytes % 16.9 % (15.3-44.8); Monocytes % 9.1 % (3.3-12.3); RBC Red Blood Cell Count 2.98 M/uL (4.33-5.43)
[2018-09-16 06:20] LABS: Potassium 4.3 mmol/L (3.5-5.1); Prealbumin 11.8 mg/dL (20-40)
[2018-09-16] MEDS: ONDANSETRON 4 MG (ODT) TAB PO PRN (06:54)
[2018-09-16] MEDS: PANTOPRAZOLE 40MG TABLET PO SCH (06:54)
[2018-09-16] MEDS: HEPARIN 5000 UNIT/ML 1 ML VIAL SQ SCH (08:04)
[2018-09-16] MEDS: LISINOPRIL 10 MG TAB PO SCH (08:45)
[2018-09-16] MEDS: CARVEDILOL 6.25 MG TAB PO SCH ×2 (08:45→19:38)
[2018-09-16] MEDS: CYANOCOBALAMIN 1,000 MCG TAB PO SCH (08:45)
[2018-09-16] MEDS: FERROUS SULFATE 325 MG TAB PO SCH (08:45)
[2018-09-16] MEDS: MAGNESIUM OXIDE 400 MG TAB PO SCH (08:45)
[2018-09-16] MEDS: OCUVITE (VIT A,C & E/LUTEIN/MINERAL) TABLET PO SCH (08:54)
--- NOTE | 2018-09-16 09:43 | RAD REPORT ---
EXAM DESCRIPTION: RAD - Barium Swallow Modified - 09/16/2018 8:58 am CLINICAL HISTORY: Dysphagia COMPARISON: Barium Swallow Modified dated 09/03/2018 TECHNIQUE: The patient was given liquid, semi-solid and solid forms of barium. Lateral view fluorosc opic imaging was performed in conjunction with speech pathology service. FINDINGS: Pharyngeal residue vallecular pyriform posterior wall moderate. No penetration or aspirat ion was viewed during the study with any consistancy tested. There were moaderate residues in the dianne lecula and pyriforms. Reswallows assisted in reducing residues. Delay in swallow onset present. This incrased with increase in viscosity and as study continued. There was reduced opening of the upper s eophageal sphincter. Significant esophageal stasis and reflux. Total fluoroscopy time: 6 minutes and 48 seconds
--- NOTE | 2018-09-16 10:11 | FAST ---
SHIFT START DATE/TIME: 09/16/2018 07:00 (CDT) SHIFT END DATE/TIME: 09/16/2018 19:00 (CDT) NAME JOSE ALEJANDRO ROSS DATE OF : 1930 DATE OF ADMISSION: 09/14/2018 18:33 (CDT) PHONE: AGE: 88 N# [id number] GENDER: Male ENCOUNTER PHYSICIAN: Dr. Deandre Solis M.D. 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 EATING: EATING - STEP 1: Does the patient require the assistance of a person or device, or need extra time when eating? Yes. EATING - STEP 2: Does the patient require the assistance of a helper? Yes. EATING - STEP 3: Does the patient perform half or more of the eating tasks? Yes. EATING - STEP 4: Does the patient need only supervision, cuing, coaxing OR help to apply an orthosis OR help to cut fo od, open containers, pour liquids, or butter bread? Yes. EATING - SCORE: 5-SUP GROOMING: Oral care GROOMING - STEP 1: Does the patient require the assistance of a person or device, or need extra time when grooming? Yes. GROOMING - STEP 2: Does the patient require the assistance of a helper? Yes. GROOMING - STEP 3: How much assistance does the patient require from the helper? Cuing, coaxing, instructions, or encour agement for completion of grooming GROOMING - SCORE: 5-SUP BATHING: Activity did not occur on this shift BATHING - SCORE: 0-UNK DRESSING - UPPER BODY: Activity did not occur on this shift ARTICLES SCORE Total number of steps: 0 DRESSING - UPPER BODY - SCORE: 0-UNK DRESSING - LOWER BODY: Activity did not occur on this shift ARTICLES SCORE Total number of steps: 0 DRESSING - LOWER BODY - SCORE: 0-UNK TOILETING: TOILETING - STEP 1: Does the patient require the assistance of a person or device, or need extra time with toileting? Yes . TOILETING - STEP 2: Does the patient require the assistance of a helper? Yes. TOILETING - STEP 3: How much assistance does the patient require from the helper? Hands-on assistance from the helper TOILETING - STEP 4: Of the 3 tasks: 1) Adjusting clothing prior to use, 2) Cleansing of perineal area, 3) Adjusting clot dileep after use; How many tasks does the patient perform WITHOUT assistance of the helper? Three tasks with steadying assistance from the helper TOILETING - SCORE: 4-MIN BLADDER MANAGEMENT: Patient is on renal dialysis or peritoneal dialysis and no voiding activity BLADDER MANAGEMENT - SCORE: 7-IND BOWEL MANAGEMENT: Activity did not occur on this shift BOWEL MANAGEMENT - SCORE: 7-IND TRANSFERS: BED, CHAIR, WHEELCHAIR: TRANSFERS: BED, CHAIR, WHEELCHAIR - STEP 1: Does the patient require assistance of a person or device, or need extra time with bed, chair, or whe elchair transfers? Yes. TRANSFERS: BED, CHAIR, WHEELCHAIR - STEP 2: Does the patient require the assistance of a helper? Yes. TRANSFERS: BED, CHAIR, WHEELCHAIR - STEP 3: How much assistance does the patient require from the helper? Steadying/guiding assistance TRANSFERS: BED, CHAIR, WHEELCHAIR - SCORE: 4-MIN TRANSFERS: TOILET: TRANSFERS: TOILET - STEP 1: Does the patient require the assistance of a person or device, or need extra time with toilet transfe rs? Yes. TRANSFERS: TOILET - STEP 2: Does the patient require the assistance of a helper? Yes. TRANSFERS: TOILET - STEP 3: How much assistance does the patient require from the helper? Patient performs half or more of the tr ansferring tasks TRANSFERS: TOILET - STEP 4: Does the patient need only incidental help such as contact guard or steadying during toilet transfer? Yes. TRANSFERS: TOILET - SCORE: 4-MIN TRANSFERS: SHOWER: Activity did not occur on this shift TRANSFERS: SHOWER - SCORE: 0-UNK TRANSFERS: TUB: Activity did not occur on this shift TRANSFERS: TUB - SCORE: 0-UNK LOCOMOTION: WALK: Activity did not occur on this shift LOCOMOTION: WALK - SCORE: 0-UNK LOCOMOTION: WHEELCHAIR: Activity did not occur on this shift LOCOMOTION: WHEELCHAIR - SCORE: 0-UNK COMPREHENSION: COMPREHENSION: TYPE: Both COMPREHENSION - STEP 1: Does the patient require help from a person or device, or need extra time to understand complex and a bstract ideas (such as current events, finances, discharge planning, medical issues, relationships, e tc)? No. COMPREHENSION - STEP 2: Does the patient need extra time, require an assistive device (such as glasses for visual comprehensi on or a hearing aid for auditory comprehension) or does s/he have mild difficulty understanding compl ex and abstract information? Yes. COMPREHENSION - SCORE: 6-CATHY EXPRESSION EXPRESSION: TYPE: Both EXPRESSION - STEP 1: Does the patient require help from a person or device, or need extra time expressing complex and abst ract ideas (such as current events, finances, discharge planning, medical issues, relationships, etc) ? Yes. EXPRESSION - STEP 2: Does the patient require help to express basic necessities or ideas (such as hunger, thirst, sleep, s afety, daily schedule, room location, or discomfort) half or more of the time? No. EXPRESSION - STEP 3: How often does the patient need help to express directions and conversation about basic needs? 10-24% of the time EXPRESSION - SCORE: 4-MIN SOCIAL INTERACTION: SOCIAL INTERACTION - STEP 1: Does the patient require a helper to interact with others in social and therapeutic situations? Yes. SOCIAL INTERACTION - STEP 2: Does the patient interact appropriately half or more of the time? Yes. SOCIAL INTERACTION - STEP 3: How often does the patient need help to interact appropriately? 10-24% of the time SOCIAL INTERACTION - SCORE: 4-MIN PROBLEM SOLVING: PROBLEM SOLVING - STEP 1: Does the patient need help from a person or device, or need extra time to solve complex problems such as managing a checking account or confronting interpersonal problems? Yes. PROBLEM SOLVING - STEP 2: Does the patient solve basic routine problems half or more of the time? Yes. PROBLEM SOLVING - STEP 3: How often does the patient need help to solve basic routine problems? 10%-24% of the time PROBLEM SOLVING - SCORE: 4-MIN MEMORY: MEMORY - STEP 1: Does the patient need help from a person or device, or need extra time to remember frequently encount ered people, daily routines, and executing requests? Yes. MEMORY - STEP 2: How often does the patient need help to remember frequently encountered people, daily routines, and e xecuting requests? 25% - 49% of the time MEMORY - SCORE: 3-MOD SIGNATURE PANEL: The following modified sections: Eating - Score, Grooming - Score, Bathing - Score, Dressing - Upper Body - Score, Dressing - Lower Body - Score, Toileting - Score, Bladder Management - Score, Bowel Man agement - Score, Transfers: Bed, Chair, Wheelchair - Score, Transfers: Toilet - Score, Transfers: Rupa wer - Score, Transfers: Tub - Score, Locomotion: Walk - Score, Locomotion: Wheelchair - Score, Compre hension - Score, Expression - Score, Social Interaction - Score, Problem Solving - Score, Memory - Sc ore were [electronically] signed by Jarad Chaney on ThuSep 16 2018 10:10:36 GMT-0500 (Central Daylight Time)
[2018-09-16 12:53] VITALS: BMI 25.7
[2018-09-16] MEDS: BISACODYL 10 MG RECTAL SUPP PR PRN (14:46)
--- NOTE | 2018-09-16 18:11 | R.PN ---
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 SUBJECTIVE: Pt denied any Shortness of Breath. Pt denied any depression. Hgb 8.6, creatinine 4.34, prealbumin 11.8. Barium swallow test shows no aspiration but significant es ophageal stasis and reflux. VITAL SIGNS Temperature: 97.5 F SBP/DBP: 120/60 Pulse: 58 Resp: 16 MEDICATION ALLERGIES: DOXYCYCLINE Iodine ENVIRONMENTAL ALLERGIES: None Known - Substance Allergies None Known - Other Allergies None Known NURSING: - Shower allowing shower - Bladder care per protocol - Skin care per protocol PRECAUTIONS: - Fall Precaution Bed and chair alarm ACTIVITIES OOB only with supervision THERAPIES: - Occupational Therapy Evaluate and Treat. Visual Perceptual Training. Cognitive Retraining. - Speech Therapy Cognitive Training. Memory Strategies. Speech Intelligibility Training. Expressive Language Skills. R eceptive Language Skills. - Physical Therapy Evaluate and Treat. PHYSICAL EXAM - Gen Alert and awake Lying in bed No apparent distress Oriented to: person, time, and place - Skin No breakdown No abnormalities - Eyes No abnormalities - ENMT No abnormalities - Neck No abnormalities - CVS RRR - Chest Clear - Abd + bowel sounds - GI nondistended Deferred - No abnormalities - Ext No significant edema - MSK 4+/5 weakness in left upper and lower extremity - Neuro 4/5 strength right upper and lower extremities. Mild expressive and receptive aphasia. - Psych No abnormalities ASSESSMENT: Pt. is a 88 yo Right-handed white male.On 09/01/2018 Pt. presented to [facility] with sudden onset of right-side weakness.On 09/01/2018 he was admitted to [facility] with diagnosis Left MCA.His impairment category is Stroke 01 - Right Body (Left Brain) (01.2 ).Pre-morbidly, Pt. was independent/mod-I in Self-Care, Sphincter Control, Transfers Control, Locomot ion, Communication, and Social Cognition; and he had good Sphincter Control.Currently, he has deficit s of Transfers Control, Locomotion, Communication, Social Cognition, Endurance, Balance, Safety Aware ness, and Self-Care.Pt. is now referred to [facility] for acute in-patient giancarlo abilitation in order to maximize patient's functional independence in activities of daily living, str ength, ROM, and mobility.- Rehab Goal Patient has realistic goal of being discharged at assistance level 6-Princess to reside at Home with Fam ming/Relatives. MDM/PLAN: - Physical Therapy Gait dysfunction - to improve, our physical therapists will perform initial evaluation of pt's statu s upon admission and devise an individualized program for Gait Training, and Wheel Chair mobility Inability to transfer - to improve, our physical therapists will perform initial evaluation of pt's status upon admission and devise an individualized program for Bed mobility Need for home safety evaluation - to improve, our physical therapists will perform initial evaluatio n of pt's status upon admission and devise an individualized program for Home Evaluation Need in caregiver upon discharge - to improve, our physical therapists will perform initial evaluati on of pt's status upon admission and devise an individualized program for Caregiver Training Edema - to improve, our physical therapists will perform initial evaluation of pt's status upon admis rui and devise an individualized program for Elevation Training, and Lymphedema Therapy New precaution - to improve, our physical therapists will perform initial evaluation of pt's status upon admission and devise an individualized program for Patient precaution education Poor balance - to improve, our physical therapists will perform initial evaluation of pt's status up on admission and devise an individualized program for Balance Training Poor endurance - to improve, our physical therapists will perform initial evaluation of pt's status upon admission and devise an individualized program for Endurance Training Weakness - to improve, our physical therapists will perform initial evaluation of pt's status upon a dmission and devise an individualized program for Aquatic Therapy, Neuromuscular Reeducation, and Str engthening Achieving independence - to improve, our physical therapists will perform initial evaluation of pt's status upon admission and devise an individualized program for Community Reintegration Activities - Occupational Therapy ADL deficits - to improve, our occupation therapists will perform initial evaluation of pt's status upon admission and devise an individualized program for Bathing, Bed mobility, Community Reintegratio n, Cooking, Dressing, Eating, Fine Motor Skills, Grooming, Homemaking, Kitchen Mobility, Laundry, Pat ient Education, Safety Awareness, Splinting - Positioning, Transfers(Toilet, Tub, Shower), and Wheel Chair Management Cognitive deficits - to improve, our occupation therapists will perform initial evaluation of pt's s tatus upon admission and devise an individualized program for Cognition - orientation Need for anesthesiologist and critical care - to improve, our occupation therapists will perform initial evaluation of pt's status upon admission and devise an individualized program for Caregiver Training Weakness - to improve, our occupation therapists will perform initial evaluation of pt's status upon admission and devise an individualized program for Aquatic Therapy, Balance, Endurance, UE ROM, and UE strengthening - Diet Type Continue Regular - Diet - Liquid Texture Continue Regular - Tube Feed Continue N/A - Bladder care per protocol - Weight Bearing Precaution WBAT right LE - Fall Precaution Bed and chair alarm - Skin care per protocol - Diet - Solid Texture Continue Regular - Shower allowing shower for Dementia, TBI, Stroke, or others FUNCTIONAL STATUS: UPDATED AT WEEKLY TEAM CONFERENCE - Bladder Same accident frequency: 7-Ind - No accidents in the past 7 days - Bowel Same accident frequency: 7-Ind - No accidents in the past 7 days - Walking Same score based on distance walked: 1(<=50ft) - Wheelchair Same score based on distance traveled: 0(N/A) FUNCTIONAL STATUS: - Self-Care A. Eating Princess B. Grooming sup C. Bathing sup D. Dressing - Upper sup E. Dressing - Lower sup F. Toileting sup - Sphincter Control G: Bladder control Ind H: Bowel control Ind - Transfers Control I. Bed/Chair/Wheelchair maxA J. Toilet maxA K. Tub/Shower ADNO - Locomotion L. Walk/Wheelchair (C) maxA L. Walk/Wheelchair (W) maxA M. Stairs ADNO - Communication N. Comprehension (B) Gale O. Expression (B) Gale - Social Cognition P. Social Interaction Gale Q. Problem Solving modA R. Memory modA - Endurance Fair - Balance Fair - Safety Awareness Fair CURRENT FUNC. DEFICITS: Transfers Control, Locomotion, Communication, Social Cognition, Endurance, Balance, Safety Awareness, and Self-Care SIGNATURE PANEL: (CDT)
[2018-09-16] MEDS: MELATONIN 3 MG TABLET PO SCH (20:35)
[2018-09-16] MEDS: NEPRO SHAKE 237 ML CAN PO SCH (20:35)
[2018-09-16] MEDS: ATORVASTATIN 20 MG TAB PO SCH (20:35)
[2018-09-16] MEDS: GABAPENTIN 100 MG CAP PO SCH (20:35)
[2018-09-16] MEDS: DOCUSATE NA/SENNA CONC 1 TAB PO SCH (20:35)
--- NOTE | 2018-09-17 01:21 | FAST ---
SHIFT START DATE/TIME: 09/16/2018 19:00 (CDT) SHIFT END DATE/TIME: 09/17/2018 07:00 (CDT) NAME JOSE ALEJANDRO ROSS DATE OF : 1930 DATE OF ADMISSION: 09/14/2018 18:33 (CDT) PHONE: AGE: 88 N# [id number] GENDER: Male ENCOUNTER PHYSICIAN: Dr. Deandre Solis M.D. 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 EATING: EATING - STEP 1: Does the patient require the assistance of a person or device, or need extra time when eating? Yes. EATING - STEP 2: Does the patient require the assistance of a helper? Yes. EATING - STEP 3: Does the patient perform half or more of the eating tasks? Yes. EATING - STEP 4: Does the patient need only supervision, cuing, coaxing OR help to apply an orthosis OR help to cut fo od, open containers, pour liquids, or butter bread? Yes. EATING - SCORE: 5-SUP GROOMING: Activity did not occur on this shift GROOMING - SCORE: 0-UNK BATHING: Activity did not occur on this shift BATHING - SCORE: 0-UNK DRESSING - UPPER BODY: Patient is not dressing in public clothing ARTICLES SCORE Total number of steps: 0 DRESSING - UPPER BODY - SCORE: 0-UNK DRESSING - LOWER BODY: Patient is not dressing in public clothing ARTICLES SCORE Total number of steps: 0 DRESSING - LOWER BODY - SCORE: 0-UNK TOILETING: TOILETING - STEP 1: Does the patient require the assistance of a person or device, or need extra time with toileting? Yes . TOILETING - STEP 2: Does the patient require the assistance of a helper? Yes. TOILETING - STEP 3: How much assistance does the patient require from the helper? Hands-on assistance from the helper TOILETING - STEP 4: Of the 3 tasks: 1) Adjusting clothing prior to use, 2) Cleansing of perineal area, 3) Adjusting clot dileep after use; How many tasks does the patient perform WITHOUT assistance of the helper? Three tasks with steadying assistance from the helper TOILETING - SCORE: 4-MIN BLADDER MANAGEMENT: Patient is on renal dialysis or peritoneal dialysis and no voiding activity BLADDER MANAGEMENT - SCORE: 7-IND BOWEL MANAGEMENT: BOWEL MANAGEMENT - STEP 1: Does the patient control bowels completely and intentionally without equipment devices or medications AND is always continent? No. BOWEL MANAGEMENT - STEP 2: Does the patient require the assistance of a helper? Yes. BOWEL MANAGEMENT - STEP 3: How much assistance does the patient require from the helper? Patient requires minimal contact assist ance / incidental help to maintain an external device such as removing / applying wafer BOWEL MANAGEMENT - SCORE: 4-MIN TRANSFERS: BED, CHAIR, WHEELCHAIR: TRANSFERS: BED, CHAIR, WHEELCHAIR - STEP 1: Does the patient require assistance of a person or device, or need extra time with bed, chair, or whe elchair transfers? Yes. TRANSFERS: BED, CHAIR, WHEELCHAIR - STEP 2: Does the patient require the assistance of a helper? Yes. TRANSFERS: BED, CHAIR, WHEELCHAIR - STEP 3: How much assistance does the patient require from the helper? Lifting of the legs TRANSFERS: BED, CHAIR, WHEELCHAIR - STEP 4: How many legs does the patient require the helper to lift? one leg TRANSFERS: BED, CHAIR, WHEELCHAIR - SCORE: 4-MIN TRANSFERS: TOILET: TRANSFERS: TOILET - STEP 1: Does the patient require the assistance of a person or device, or need extra time with toilet transfe rs? Yes. TRANSFERS: TOILET - STEP 2: Does the patient require the assistance of a helper? Yes. TRANSFERS: TOILET - STEP 3: How much assistance does the patient require from the helper? Patient performs half or more of the tr ansferring tasks TRANSFERS: TOILET - STEP 4: Does the patient need only incidental help such as contact guard or steadying during toilet transfer? Yes. TRANSFERS: TOILET - SCORE: 4-MIN TRANSFERS: SHOWER: Activity did not occur on this shift TRANSFERS: SHOWER - SCORE: 0-UNK TRANSFERS: TUB: Activity did not occur on this shift TRANSFERS: TUB - SCORE: 0-UNK LOCOMOTION: WALK: Activity did not occur on this shift LOCOMOTION: WALK - SCORE: 0-UNK LOCOMOTION: WHEELCHAIR: Activity did not occur on this shift LOCOMOTION: WHEELCHAIR - SCORE: 0-UNK COMPREHENSION: COMPREHENSION: TYPE: Both COMPREHENSION - STEP 1: Does the patient require help from a person or device, or need extra time to understand complex and a bstract ideas (such as current events, finances, discharge planning, medical issues, relationships, e tc)? Yes. COMPREHENSION - STEP 2: Does the patient require help to understand questions or statements about basic needs or ideas (such as hunger, thirst, sleep, safety, daily schedule, room location, or discomfort) half or more of the t ezio? No. COMPREHENSION - STEP 3: How often does the patient need help to understand directions and conversation about basic needs? Les s than 10% of the time COMPREHENSION - SCORE: 5-SUP EXPRESSION EXPRESSION: TYPE: Both EXPRESSION - STEP 1: Does the patient require help from a person or device, or need extra time expressing complex and abst ract ideas (such as current events, finances, discharge planning, medical issues, relationships, etc) ? Yes. EXPRESSION - STEP 2: Does the patient require help to express basic necessities or ideas (such as hunger, thirst, sleep, s afety, daily schedule, room location, or discomfort) half or more of the time? No. EXPRESSION - STEP 3: How often does the patient need help to express directions and conversation about basic needs? Less t tinoco 10% of the time EXPRESSION - SCORE: 5-SUP SOCIAL INTERACTION: SOCIAL INTERACTION - STEP 1: Does the patient require a helper to interact with others in social and therapeutic situations? Yes. SOCIAL INTERACTION - STEP 2: Does the patient interact appropriately half or more of the time? Yes. SOCIAL INTERACTION - STEP 3: How often does the patient need help to interact appropriately? Less than 10% of the time SOCIAL INTERACTION - SCORE: 5-SUP PROBLEM SOLVING: Patient requires bed/chair alarms due to attempts to get up unassisted when helper is needed. PROBLEM SOLVING - STEP 1: How often do the bed/chair alarms go off? Occasionally - the alarms go off about 25% or less PROBLEM SOLVING - SCORE: 4-MIN MEMORY: MEMORY - STEP 1: How often do the bed/chair alarms go off? Occasionally - the alarms go off about 25% of the time or l ess MEMORY - SCORE: 4-MIN SIGNATURE PANEL: The following modified sections: Eating - Score, Grooming - Score, Bathing - Score, Dressing - Upper Body - Score, Dressing - Lower Body - Score, Toileting - Score, Bladder Management - Score, Bowel Man agement - Score, Transfers: Bed, Chair, Wheelchair - Score, Transfers: Toilet - Score, Transfers: Rupa wer - Score, Transfers: Tub - Score, Locomotion: Walk - Score, Locomotion: Wheelchair - Score, Compre hension - Score, Expression - Score, Social Interaction - Score, Problem Solving - Score, Memory - Sc ore were [electronically] signed by Yasmeen Cano RN on ThuSep 17 2018 01:20:11 [facility]
[2018-09-17] MEDS: PANTOPRAZOLE 40MG TABLET PO SCH (06:29)
[2018-09-17] MEDS: LISINOPRIL 10 MG TAB PO SCH (08:00)
[2018-09-17] MEDS: CARVEDILOL 6.25 MG TAB PO SCH ×2 (08:00→21:40)
[2018-09-17] MEDS: HEPARIN 5000 UNIT/ML 1 ML VIAL SQ SCH (08:00)
[2018-09-17] MEDS: OCUVITE (VIT A,C & E/LUTEIN/MINERAL) TABLET PO SCH (08:17)
[2018-09-17] MEDS: MAGNESIUM OXIDE 400 MG TAB PO SCH (08:17)
[2018-09-17] MEDS: FERROUS SULFATE 325 MG TAB PO SCH (08:18)
[2018-09-17] MEDS: CYANOCOBALAMIN 1,000 MCG TAB PO SCH (08:19)
--- NOTE | 2018-09-17 09:55 | P.RH.PN ---
Estimated Length of Stay: 12 Expected Discharge Date: 09/22/18 Family Support: Yes Boiler Assistant Operator Goal: Mobility, Transfers, Self Care Vital Signs: Last Vital Signs Temp 96.0 F L 09/17/18 07:30 Pulse 62 09/17/18 08:00 Resp 14 09/17/18 07:30 BP 119/57 L 09/17/18 08:00 Pulse Ox 97 09/17/18 07:30 Laboratory: Laboratory Last Values WBC 5.2 K/uL (4.3-10.9) 09/16/18 05:41 RBC 2.98 M/uL (4.33-5.43) L 09/16/18 05:41 Hgb 8.6 g/dL (13.6-17.9) L 09/16/18 05:41 Hct 27.7 % (39.6-49.0) L 09/16/18 05:41 MCV 92.8 fL (80-100) 09/16/18 05:41 MCH 28.9 pg (27.0-35.0) 09/16/18 05:41 MCHC 31.2 g/dL (32.0-36.0) L 09/16/18 05:41 RDW 17.4 % (12.1-15.2) H 09/16/18 05:41 Plt Count 284 K/uL (152-406) 09/16/18 05:41 MPV 7.0 fL (7.6-11.3) L 09/16/18 05:41 Neutrophils % 70.4 % (41.7-73.7) 09/16/18 05:41 Lymphocytes % 16.9 % (15.3-44.8) 09/16/18 05:41 Monocytes % 9.1 % (3.3-12.3) 09/16/18 05:41 Eosinophils % 2.5 % (0-4.4) 09/16/18 05:41 Basophils % 1.1 % (0-1.3) 09/16/18 05:41 Absolute Neutrophils 3.6 K/uL (1.8-8.0) 09/16/18 05:41 Absolute Lymphocytes 0.9 K/uL (0.7-4.9) 09/16/18 05:41 Absolute Monocytes 0.5 K/uL (0.1-1.3) 09/16/18 05:41 Absolute Eosinophils 0.1 K/uL (0-0.5) 09/16/18 05:41 Absolute Basophils 0.1 K/uL (0-0.5) 09/16/18 05:41 Sodium 138 mmol/L (136-145) 09/16/18 05:41 Potassium 4.3 mmol/L (3.5-5.1) 09/16/18 05:41 Chloride 101 mmol/L (98-107) 09/16/18 05:41 Carbon Dioxide 32 mmol/L (21-32) 09/16/18 05:41 BUN 35 mg/dL (7-18) H 09/16/18 05:41 Creatinine 4.34 mg/dL (0.55-1.3) H D 09/16/18 05:41 Estimated GFR 13 mL/min (=/>90) L 09/16/18 05:41 Glucose 109 mg/dL (74-106) H 09/16/18 05:41 Calcium 8.4 mg/dL (8.5-10.1) L 09/16/18 05:41 Magnesium 2.2 mg/dL (1.8-2.4) 09/15/18 06:01 Albumin 2.5 g/dL (3.4-5.0) L 09/15/18 06:01 Prealbumin 11.8 mg/dL (20-40) L 09/16/18 05:41 Weight: 164 lb Wound Present: No Closed Surgical Incision Present: No Negative Pressure Wound Therapy Present: No Physician Update: He did pass his barium swallow test but had esophageal stasis. He will see Dr. Buitrago. Mechanical softs diet. He is at contact guard walking 150'. He has chronic anemia related to chronic kidney disease. He appears depressed. Will start Cymbalta 20 mg daily. Medication Issues: DVT Prophylaxis - heparin 5,000 units SQ daily Functional Improvement: Patient was re-admitted to 5th floor rehab yesterday. Patient showed improvement during today's therapy session compared to yesterday' s session. Functional Improvement Occupational Therapy: pt can benifit with further therapy to increase pt's overall weakness/endurance and safety while completing adl tasks, UB strengthening and static/dynamic standing balalnce for adl tasks when returning home. cont with the POC and the goals by the supervising OTR. Speech Therapy Update: Moderate oropharyngeal dysphagia as well as esophageal dysphagia. There was no penetration or asporation on MBSS today 09/16/2018. However there is reduced opening of the UES and moderate pharyngeal residuals. Fatigue impacts swallow safety. Patient down-graded to mechanical soft, ground meats with gravies/sauces and regular lqiuids; needs frequent small meals to reduced fatigue and increase intake. ENT and GI consult recommended. 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 Patient responding well to modeling and written word. Summary: Patient's care plan and ad terminal makeup operator goals have been reviewed and revised as necessary. Please see the Rehabilitation Signature page for all necessary signatures.
--- NOTE | 2018-09-17 14:00 | P.PN ---
Subjective Date of Service: 09/17/18 Subjective: No new changes pt with CVA and ESRD HD MWF stable vS trace edema Physical Examination - Vital Signs Temperature: 96.0 F Blood Pressure: 119/57 Pulse: 62 Respirations: 14 Pulse Ox (%): 97 - Physical Exam General: In no apparent distress, Oriented x3 HEENT: Atraumatic Neck: Supple, Without JVD or thyroid abnormality Respiratory: Clear to auscultation bilaterally, Normal air movement Cardiovascular: Normal S1 S2, No rubs, Other (trace edema ), Edema Gastrointestinal: Normal bowel sounds Integumentary: No rashes - Studies Microbiology Data (last 24 hrs): 09/16/18 17:55 Nasopharnyx Influenza Type A Antigen Screen - Final 09/16/18 17:55 Nasopharnyx Influenza Type B Antigen Screen - Final Assessment And Plan - Current Problems (Diagnosis) (1) Acute CVA (cerebrovascular accident) Onset Date: 09/01/18 Current Visit: No Status: Acute (2) ESRD on dialysis Onset Date: 10/12/17 Current Visit: No Status: Chronic - Plan ESRD will cont HD MWF renal dose meds CVA Cont PT/OT MBD phos controlled Anemia cont GUNJAN .
--- NOTE | 2018-09-17 15:50 | FAST ---
ENCOUNTER DATE AND TIME: 09/16/2018 08:00 (CDT) NAME JOSE ALEJANDRO ROSS DATE OF : 1930 DATE OF ADMISSION: 09/14/2018 18:33 (CDT) PHONE: AGE: 88 N# [id number] GENDER: Male ENCOUNTER PHYSICIAN: Dr. Deandre Solis M.D. 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 EATING: Activity did not occur on this shift EATING - SCORE: 0-UNK GROOMING: Activity did not occur on this shift GROOMING - SCORE: 0-UNK BATHING: Activity did not occur on this shift BATHING - SCORE: 0-UNK DRESSING - UPPER BODY: Activity did not occur on this shift Patient is not dressing in public clothing ARTICLES SCORE Total number of steps: 0 DRESSING - UPPER BODY - SCORE: 0-UNK DRESSING - LOWER BODY: Activity did not occur on this shift Patient is not dressing in public clothing ARTICLES SCORE Total number of steps: 0 DRESSING - LOWER BODY - SCORE: 0-UNK TOILETING: Activity did not occur on this shift TOILETING - SCORE: 0-UNK BLADDER MANAGEMENT: Activity did not occur on this shift BLADDER MANAGEMENT - SCORE: 7-IND BOWEL MANAGEMENT: Activity did not occur on this shift BOWEL MANAGEMENT - SCORE: 7-IND TRANSFERS: BED, CHAIR, WHEELCHAIR: TRANSFERS: BED, CHAIR, WHEELCHAIR - STEP 1: Does the patient require assistance of a person or device, or need extra time with bed, chair, or whe elchair transfers? Yes. TRANSFERS: BED, CHAIR, WHEELCHAIR - STEP 2: Does the patient require the assistance of a helper? Yes. TRANSFERS: BED, CHAIR, WHEELCHAIR - STEP 3: How much assistance does the patient require from the helper? Steadying/guiding assistance TRANSFERS: BED, CHAIR, WHEELCHAIR - SCORE: 4-MIN TRANSFERS: TOILET: Activity did not occur on this shift TRANSFERS: TOILET - SCORE: 0-UNK TRANSFERS: SHOWER: Activity did not occur on this shift TRANSFERS: SHOWER - SCORE: 0-UNK TRANSFERS: TUB: Activity did not occur on this shift TRANSFERS: TUB - SCORE: 0-UNK LOCOMOTION: WALK: LOCOMOTION: WALK - STEP 1: Does the patient need help from a person or device, or need extra time to walk 150 feet? Yes. LOCOMOTION: WALK - STEP 2: How much assistance does the patient require to walk a minimum of 150 feet? Only incidental help such as contact guarding or steadying LOCOMOTION: WALK - SCORE: 4-MIN LOCOMOTION: WHEELCHAIR: Activity did not occur on this shift LOCOMOTION: WHEELCHAIR - SCORE: 0-UNK LOCOMOTION: STAIRS: Activity did not occur on this shift LOCOMOTION: STAIRS - SCORE: 0-UNK COMPREHENSION: COMPREHENSION - SCORE: 0-UNK EXPRESSION EXPRESSION - SCORE: 0-UNK SOCIAL INTERACTION: SOCIAL INTERACTION - SCORE: 0-UNK PROBLEM SOLVING: PROBLEM SOLVING - SCORE: 0-UNK MEMORY: MEMORY - SCORE: 0-UNK SIGNATURE PANEL: The following modified sections: Transfers: Bed, Chair, Wheelchair - Score, Transfers: Toilet - Score , Locomotion: Walk - Score, Locomotion: Wheelchair - Score, Locomotion: Stairs - Score were [electron ically] signed by Mert Ferguson PTA on ThuSep 17 2018 15:49:58 T-0500 (Central Daylight Time)
[2018-09-17] MEDS: EPOETIN ALFA 10,000 UNIT/ML VIAL IV SCH (19:46)
[2018-09-17] MEDS: MELATONIN 3 MG TABLET PO SCH (21:39)
[2018-09-17] MEDS: ATORVASTATIN 20 MG TAB PO SCH (21:39)
[2018-09-17] MEDS: DOCUSATE NA/SENNA CONC 1 TAB PO SCH (21:39)
[2018-09-17] MEDS: GABAPENTIN 100 MG CAP PO SCH (21:40)
[2018-09-17] MEDS: NEPRO SHAKE 237 ML CAN PO SCH (21:41)
--- NOTE | 2018-09-18 02:15 | FAST ---
SHIFT START DATE/TIME: 09/17/2018 19:00 (CDT) SHIFT END DATE/TIME: 09/18/2018 07:00 (CDT) NAME JOSE ALEJANDRO ROSS DATE OF : 1930 DATE OF ADMISSION: 09/14/2018 18:33 (CDT) PHONE: AGE: 88 SSN# [id number] GENDER: Male ENCOUNTER PHYSICIAN: Dr. Deandre Solis M.D. 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 EATING: Activity did not occur on this shift EATING - SCORE: 0-UNK GROOMING: Activity did not occur on this shift GROOMING - SCORE: 0-UNK BATHING: Activity did not occur on this shift BATHING - SCORE: 0-UNK DRESSING - UPPER BODY: Patient is not dressing in public clothing ARTICLES SCORE Total number of steps: 0 DRESSING - UPPER BODY - SCORE: 0-UNK DRESSING - LOWER BODY: Patient is not dressing in public clothing ARTICLES SCORE Total number of steps: 0 DRESSING - LOWER BODY - SCORE: 0-UNK TOILETING: Activity did not occur on this shift TOILETING - SCORE: 0-UNK BLADDER MANAGEMENT: Patient is on renal dialysis or peritoneal dialysis and no voiding activity BLADDER MANAGEMENT - SCORE: 7-IND BOWEL MANAGEMENT: Activity did not occur on this shift BOWEL MANAGEMENT - SCORE: 7-IND TRANSFERS: BED, CHAIR, WHEELCHAIR: Activity did not occur on this shift TRANSFERS: BED, CHAIR, WHEELCHAIR - SCORE: 0-UNK TRANSFERS: TOILET: Activity did not occur on this shift TRANSFERS: TOILET - SCORE: 0-UNK TRANSFERS: SHOWER: Activity did not occur on this shift TRANSFERS: SHOWER - SCORE: 0-UNK TRANSFERS: TUB: Activity did not occur on this shift TRANSFERS: TUB - SCORE: 0-UNK LOCOMOTION: WALK: Activity did not occur on this shift LOCOMOTION: WALK - SCORE: 0-UNK LOCOMOTION: WHEELCHAIR: Activity did not occur on this shift LOCOMOTION: WHEELCHAIR - SCORE: 0-UNK COMPREHENSION: COMPREHENSION: TYPE: Both COMPREHENSION - STEP 1: Does the patient require help from a person or device, or need extra time to understand complex and a bstract ideas (such as current events, finances, discharge planning, medical issues, relationships, e tc)? Yes. COMPREHENSION - STEP 2: Does the patient require help to understand questions or statements about basic needs or ideas (such as hunger, thirst, sleep, safety, daily schedule, room location, or discomfort) half or more of the t ezio? No. COMPREHENSION - STEP 3: How often does the patient need help to understand directions and conversation about basic needs? 10% - 24% of the time COMPREHENSION - SCORE: 4-MIN EXPRESSION EXPRESSION: TYPE: Both EXPRESSION - STEP 1: Does the patient require help from a person or device, or need extra time expressing complex and abst ract ideas (such as current events, finances, discharge planning, medical issues, relationships, etc) ? Yes. EXPRESSION - STEP 2: Does the patient require help to express basic necessities or ideas (such as hunger, thirst, sleep, s afety, daily schedule, room location, or discomfort) half or more of the time? No. EXPRESSION - STEP 3: How often does the patient need help to express directions and conversation about basic needs? 10-24% of the time EXPRESSION - SCORE: 4-MIN SOCIAL INTERACTION: SOCIAL INTERACTION - STEP 1: Does the patient require a helper to interact with others in social and therapeutic situations? Yes. SOCIAL INTERACTION - STEP 2: Does the patient interact appropriately half or more of the time? Yes. SOCIAL INTERACTION - STEP 3: How often does the patient need help to interact appropriately? 10-24% of the time SOCIAL INTERACTION - SCORE: 4-MIN PROBLEM SOLVING: PROBLEM SOLVING - STEP 1: Does the patient need help from a person or device, or need extra time to solve complex problems such as managing a checking account or confronting interpersonal problems? Yes. PROBLEM SOLVING - STEP 2: Does the patient solve basic routine problems half or more of the time? Yes. PROBLEM SOLVING - STEP 3: How often does the patient need help to solve basic routine problems? 10%-24% of the time PROBLEM SOLVING - SCORE: 4-MIN MEMORY: MEMORY - STEP 1: Does the patient need help from a person or device, or need extra time to remember frequently encount ered people, daily routines, and executing requests? Yes. MEMORY - STEP 2: How often does the patient need help to remember frequently encountered people, daily routines, and e xecuting requests? 10% - 24% of the time MEMORY - SCORE: 4-MIN
[2018-09-18] MEDS: SIMETHICONE 80 MG TAB PO PRN ×2 (03:44→09:00)
[2018-09-18] MEDS: HYDROCODONE/APAP 5/325 MG TAB PO PRN (05:29)
[2018-09-18] MEDS: PANTOPRAZOLE 40MG TABLET PO SCH (06:59)
[2018-09-18] MEDS: HEPARIN 5000 UNIT/ML 1 ML VIAL SQ SCH (07:30)
[2018-09-18] MEDS: LISINOPRIL 10 MG TAB PO SCH (08:00)
[2018-09-18] MEDS: CARVEDILOL 6.25 MG TAB PO SCH ×2 (08:00→20:49)
[2018-09-18] MEDS: FERROUS SULFATE 325 MG TAB PO SCH (08:35)
[2018-09-18] MEDS: OCUVITE (VIT A,C & E/LUTEIN/MINERAL) TABLET PO SCH (08:35)
[2018-09-18] MEDS: MAGNESIUM OXIDE 400 MG TAB PO SCH (08:36)
[2018-09-18] MEDS: DULOXETINE 20 MG CAP PO SCH (08:36)
[2018-09-18] MEDS: CYANOCOBALAMIN 1,000 MCG TAB PO SCH (08:36)
--- NOTE | 2018-09-18 09:18 | RAD REPORT ---
EXAM DESCRIPTION: RAD - Foot Left 2 View - 09/18/2018 6:26 am CLINICAL HISTORY: Left Foot pain FINDINGS: A limited two view series obtained. No fracture or dislocation is seen. Osteoporosis Large calcaneal spur is present. Vascular calcifications seen.
--- NOTE | 2018-09-18 14:56 | FAST ---
SHIFT START DATE/TIME: 09/18/2018 07:00 (CDT) SHIFT END DATE/TIME: 09/18/2018 19:00 (CDT) NAME JOSE ALEJANDRO ROSS DATE OF : 1930 DATE OF ADMISSION: 09/14/2018 18:33 (CDT) PHONE: AGE: 88 N# [id number] GENDER: Male ENCOUNTER PHYSICIAN: Dr. Deandre Solis M.D. 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 EATING: EATING - STEP 1: Does the patient require the assistance of a person or device, or need extra time when eating? Yes. EATING - STEP 2: Does the patient require the assistance of a helper? Yes. EATING - STEP 3: Does the patient perform half or more of the eating tasks? Yes. EATING - STEP 4: Does the patient need only supervision, cuing, coaxing OR help to apply an orthosis OR help to cut fo od, open containers, pour liquids, or butter bread? Yes. EATING - SCORE: 5-SUP GROOMING: Activity did not occur on this shift GROOMING - SCORE: 0-UNK BATHING: Activity did not occur on this shift BATHING - SCORE: 0-UNK DRESSING - UPPER BODY: Activity did not occur on this shift ARTICLES SCORE Total number of steps: 0 DRESSING - UPPER BODY - SCORE: 0-UNK DRESSING - LOWER BODY: Activity did not occur on this shift ARTICLES SCORE Total number of steps: 0 DRESSING - LOWER BODY - SCORE: 0-UNK TOILETING: TOILETING - STEP 1: Does the patient require the assistance of a person or device, or need extra time with toileting? Yes . TOILETING - STEP 2: Does the patient require the assistance of a helper? Yes. TOILETING - STEP 3: How much assistance does the patient require from the helper? Hands-on assistance from the helper TOILETING - STEP 4: Of the 3 tasks: 1) Adjusting clothing prior to use, 2) Cleansing of perineal area, 3) Adjusting clot dileep after use; How many tasks does the patient perform WITHOUT assistance of the helper? No tasks; h elper performs all three tasks TOILETING - SCORE: 1-DEP BLADDER MANAGEMENT: Patient is on renal dialysis or peritoneal dialysis and no voiding activity BLADDER MANAGEMENT - SCORE: 7-IND BLADDER MANAGEMENT - FREQUENCY OF ACCIDENTS: BLADDER MANAGEMENT(FA) - STEP 1: How many accidents has the patient had during the current shift? 0 BOWEL MANAGEMENT: Activity did not occur on this shift BOWEL MANAGEMENT - SCORE: 7-IND BOWEL MANAGEMENT - FREQUENCY OF ACCIDENTS: BOWEL MANAGEMENT(FA) - STEP 1: How many accidents has the patient had during the current shift? 0 TRANSFERS: BED, CHAIR, WHEELCHAIR: TRANSFERS: BED, CHAIR, WHEELCHAIR - STEP 1: Does the patient require assistance of a person or device, or need extra time with bed, chair, or whe elchair transfers? Yes. TRANSFERS: BED, CHAIR, WHEELCHAIR - STEP 2: Does the patient require the assistance of a helper? Yes. TRANSFERS: BED, CHAIR, WHEELCHAIR - STEP 3: How much assistance does the patient require from the helper? Steadying/guiding assistance TRANSFERS: BED, CHAIR, WHEELCHAIR - SCORE: 4-MIN TRANSFERS: TOILET: TRANSFERS: TOILET - STEP 1: Does the patient require the assistance of a person or device, or need extra time with toilet transfe rs? Yes. TRANSFERS: TOILET - STEP 2: Does the patient require the assistance of a helper? Yes. TRANSFERS: TOILET - STEP 3: How much assistance does the patient require from the helper? Patient performs half or more of the tr ansferring tasks TRANSFERS: TOILET - STEP 4: Does the patient need only incidental help such as contact guard or steadying during toilet transfer? No. Patient needs more than incidental help TRANSFERS: TOILET - SCORE: 3-MOD TRANSFERS: SHOWER: Activity did not occur on this shift TRANSFERS: SHOWER - SCORE: 0-UNK TRANSFERS: TUB: Activity did not occur on this shift TRANSFERS: TUB - SCORE: 0-UNK LOCOMOTION: WALK: Activity did not occur on this shift LOCOMOTION: WALK - SCORE: 0-UNK LOCOMOTION: WHEELCHAIR: Activity did not occur on this shift LOCOMOTION: WHEELCHAIR - SCORE: 0-UNK COMPREHENSION: COMPREHENSION: TYPE: Both COMPREHENSION - STEP 1: Does the patient require help from a person or device, or need extra time to understand complex and a bstract ideas (such as current events, finances, discharge planning, medical issues, relationships, e tc)? Yes. COMPREHENSION - STEP 2: Does the patient require help to understand questions or statements about basic needs or ideas (such as hunger, thirst, sleep, safety, daily schedule, room location, or discomfort) half or more of the t ezio? Yes. COMPREHENSION - STEP 3: Is the patient basically able to understand and respond appropriately and consistently? Yes. COMPREHENSION - SCORE: 2-MAX COMPREHENSION - COMMENTS: Aphasic- difficulty locating correct word for thought process EXPRESSION EXPRESSION: TYPE: Both EXPRESSION - STEP 1: Does the patient require help from a person or device, or need extra time expressing complex and abst ract ideas (such as current events, finances, discharge planning, medical issues, relationships, etc) ? Yes. EXPRESSION - STEP 2: Does the patient require help to express basic necessities or ideas (such as hunger, thirst, sleep, s afety, daily schedule, room location, or discomfort) half or more of the time? No. EXPRESSION - STEP 3: How often does the patient need help to express directions and conversation about basic needs? 10-24% of the time EXPRESSION - SCORE: 4-MIN EXPRESSION - COMMENTS: Aphasic -difficulty locating correct word for thought process SOCIAL INTERACTION: SOCIAL INTERACTION - STEP 1: Does the patient require a helper to interact with others in social and therapeutic situations? Yes. SOCIAL INTERACTION - STEP 2: Does the patient interact appropriately half or more of the time? Yes. SOCIAL INTERACTION - STEP 3: How often does the patient need help to interact appropriately? 10-24% of the time SOCIAL INTERACTION - SCORE: 4-MIN COMMENTS: Aphasic- difficulty locating correct word for thought process PROBLEM SOLVING: PROBLEM SOLVING - STEP 1: Does the patient need help from a person or device, or need extra time to solve complex problems such as managing a checking account or confronting interpersonal problems? Yes. PROBLEM SOLVING - STEP 2: Does the patient solve basic routine problems half or more of the time? Yes. PROBLEM SOLVING - STEP 3: How often does the patient need help to solve basic routine problems? 10%-24% of the time PROBLEM SOLVING - SCORE: 4-MIN MEMORY: MEMORY - STEP 1: Does the patient need help from a person or device, or need extra time to remember frequently encount ered people, daily routines, and executing requests? Yes. MEMORY - STEP 2: How often does the patient need help to remember frequently encountered people, daily routines, and e xecuting requests? 25% - 49% of the time MEMORY - SCORE: 3-MOD SIGNATURE PANEL: The following modified sections: Eating - Score, Grooming - Score, Bathing - Score, Dressing - Upper Body - Score, Dressing - Lower Body - Score, Toileting - Score, Bladder Management - Score, Bowel Man agement - Score, Transfers: Bed, Chair, Wheelchair - Score, Transfers: Toilet - Score, Transfers: Rupa wer - Score, Transfers: Tub - Score, Locomotion: Walk - Score, Locomotion: Wheelchair - Score, Compre hension - Score, Expression - Score, Social Interaction - Score, Comments:, Expression - Comments:, C omprehension - Comments:, Problem Solving - Score, Memory - Score were [electronically] signed by Ruben IbarraNCande on Sat Sep 18 2018 14:56:36 T-0500 (Central Daylight Time)
--- NOTE | 2018-09-18 16:37 | PN ---
Date of Progress Note: 09/18/2018 Chief Complaint: Congestive heart failure with systolic dysfunction, COPD exacerbation, history of [facility]. History Of Present Illness: The patient is undergoing a rehab. He has end-stage renal disease, rece ived dialysis yesterday. Fluid overload is gradually improving. The patient was found to have sever e hyperkalemia and received stat dialysis. Potassium level has been stable over the last several day s. The patient is on low-potassium intake and dialysis is adjusted to control potassium level. Review of Systems: Denies complaints. Physical Examination: Lungs: Clear to auscultation bilaterally. Heart: S1, S2. Abdomen: Soft, benign. Extremities: No edema. Impression And Plan: 1.End-stage renal disease. Volemia is in good control. Continue p.o. fluid restriction. Dialysis will be resumed on Thursday. 2.Hypertension. Blood pressure is in the target range. Monitor blood pressure. Adjust medication. 3.Anemia of chronic kidney disease. Continue to monitor hemoglobin level and adjust erythropoietin- stimulating agents. 4.Renal osteodystrophy. Binders are adjusted. Continue treatment. Monitor phosphorus level. EB/MODL Voice ID: [id number] Report ID: [id number]
[2018-09-18] MEDS: ATORVASTATIN 20 MG TAB PO SCH (20:48)
[2018-09-18] MEDS: GABAPENTIN 100 MG CAP PO SCH (20:48)
[2018-09-18] MEDS: DOCUSATE NA/SENNA CONC 1 TAB PO SCH (20:49)
[2018-09-18] MEDS: NEPRO SHAKE 237 ML CAN PO SCH (20:49)
[2018-09-18] MEDS: MELATONIN 3 MG TABLET PO SCH (20:49)
--- NOTE | 2018-09-19 01:16 | FAST ---
SHIFT START DATE/TIME: 09/18/2018 19:00 (CDT) SHIFT END DATE/TIME: 09/19/2018 07:00 (CDT) NAME JOSE ALEJANDRO ROSS DATE OF : 1930 DATE OF ADMISSION: 09/14/2018 18:33 (CDT) PHONE: AGE: 88 N# [id number] GENDER: Male ENCOUNTER PHYSICIAN: Dr. Deandre Solis M.D. 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 EATING: Activity did not occur on this shift EATING - SCORE: 0-UNK GROOMING: Wash, rinse, and dry hands GROOMING - STEP 1: Does the patient require the assistance of a person or device, or need extra time when grooming? Yes. GROOMING - STEP 2: Does the patient require the assistance of a helper? Yes. GROOMING - STEP 3: How much assistance does the patient require from the helper? Cuing, coaxing, instructions, or encour agement for completion of grooming GROOMING - SCORE: 5-SUP BATHING: Activity did not occur on this shift BATHING - SCORE: 0-UNK DRESSING - UPPER BODY: Patient is not dressing in public clothing ARTICLES SCORE Total number of steps: 0 DRESSING - UPPER BODY - SCORE: 0-UNK DRESSING - LOWER BODY: Patient is not dressing in public clothing ARTICLES SCORE Total number of steps: 0 DRESSING - LOWER BODY - SCORE: 0-UNK TOILETING: TOILETING - STEP 1: Does the patient require the assistance of a person or device, or need extra time with toileting? Yes . TOILETING - STEP 2: Does the patient require the assistance of a helper? Yes. TOILETING - STEP 3: How much assistance does the patient require from the helper? Hands-on assistance from the helper TOILETING - STEP 4: Of the 3 tasks: 1) Adjusting clothing prior to use, 2) Cleansing of perineal area, 3) Adjusting clot dileep after use; How many tasks does the patient perform WITHOUT assistance of the helper? Two tasks TOILETING - SCORE: 3-MOD BLADDER MANAGEMENT: Patient is on renal dialysis or peritoneal dialysis and no voiding activity BLADDER MANAGEMENT - SCORE: 7-IND BOWEL MANAGEMENT: Activity did not occur on this shift BOWEL MANAGEMENT - SCORE: 7-IND TRANSFERS: BED, CHAIR, WHEELCHAIR: TRANSFERS: BED, CHAIR, WHEELCHAIR - STEP 1: Does the patient require assistance of a person or device, or need extra time with bed, chair, or whe elchair transfers? Yes. TRANSFERS: BED, CHAIR, WHEELCHAIR - STEP 2: Does the patient require the assistance of a helper? Yes. TRANSFERS: BED, CHAIR, WHEELCHAIR - STEP 3: How much assistance does the patient require from the helper? Lifting of the legs TRANSFERS: BED, CHAIR, WHEELCHAIR - STEP 4: How many legs does the patient require the helper to lift? both legs TRANSFERS: BED, CHAIR, WHEELCHAIR - SCORE: 3-MOD TRANSFERS: TOILET: TRANSFERS: TOILET - STEP 1: Does the patient require the assistance of a person or device, or need extra time with toilet transfe rs? Yes. TRANSFERS: TOILET - STEP 2: Does the patient require the assistance of a helper? Yes. TRANSFERS: TOILET - STEP 3: How much assistance does the patient require from the helper? Patient performs half or more of the tr ansferring tasks TRANSFERS: TOILET - STEP 4: Does the patient need only incidental help such as contact guard or steadying during toilet transfer? Yes. TRANSFERS: TOILET - SCORE: 4-MIN TRANSFERS: SHOWER: Activity did not occur on this shift TRANSFERS: SHOWER - SCORE: 0-UNK TRANSFERS: TUB: Activity did not occur on this shift TRANSFERS: TUB - SCORE: 0-UNK LOCOMOTION: WALK: Activity did not occur on this shift LOCOMOTION: WALK - SCORE: 0-UNK LOCOMOTION: WHEELCHAIR: Activity did not occur on this shift LOCOMOTION: WHEELCHAIR - SCORE: 0-UNK COMPREHENSION: COMPREHENSION: TYPE: Both COMPREHENSION - STEP 1: Does the patient require help from a person or device, or need extra time to understand complex and a bstract ideas (such as current events, finances, discharge planning, medical issues, relationships, e tc)? No. COMPREHENSION - STEP 2: Does the patient need extra time, require an assistive device (such as glasses for visual comprehensi on or a hearing aid for auditory comprehension) or does s/he have mild difficulty understanding compl ex and abstract information? Yes. COMPREHENSION - SCORE: 6-CATHY EXPRESSION EXPRESSION: TYPE: Both EXPRESSION - STEP 1: Does the patient require help from a person or device, or need extra time expressing complex and abst ract ideas (such as current events, finances, discharge planning, medical issues, relationships, etc) ? No. EXPRESSION - STEP 2: Does the patient need extra time, require an assistive device (such as augmentive communication syste m or a communication board), OR does s/he have mild difficulty expressing complex and abstract ideas (including mild dysarthria or mild word-find problems)? Yes. EXPRESSION - SCORE: 6-CATHY SOCIAL INTERACTION: SOCIAL INTERACTION - STEP 1: Does the patient require a helper to interact with others in social and therapeutic situations? No. SOCIAL INTERACTION - STEP 2: Does the patient need extra time in social situations, OR does s/he interact with staff, other patien ts, and family members ONLY in structured environments, OR does s/he require medication for social in teraction? Yes, patient needs extra time SOCIAL INTERACTION - SCORE: 6-CATHY PROBLEM SOLVING: PROBLEM SOLVING - STEP 1: Does the patient need help from a person or device, or need extra time to solve complex problems such as managing a checking account or confronting interpersonal problems? Yes. PROBLEM SOLVING - STEP 2: Does the patient solve basic routine problems half or more of the time? Yes. PROBLEM SOLVING - STEP 3: How often does the patient need help to solve basic routine problems? 25%-49% of the time PROBLEM SOLVING - SCORE: 3-MOD MEMORY: MEMORY - STEP 1: Does the patient need help from a person or device, or need extra time to remember frequently encount ered people, daily routines, and executing requests? No. MEMORY - STEP 2: Does the patient have slight difficulty recognizing frequently encountered people, daily routines, or executing requests without the need for repetition or using self-initiated or environmental cues to remember? Yes. MEMORY - SCORE: 6-CATHY SIGNATURE PANEL: The following modified sections: Eating - Score, Grooming - Score, Dressing - Upper Body - Score, Kyrie ssing - Lower Body - Score, Toileting - Score, Bladder Management - Score, Bowel Management - Score, Transfers: Bed, Chair, Wheelchair - Score, Transfers: Toilet - Score, Transfers: Shower - Score, [place] sfers: Tub - Score, Locomotion: Walk - Score, Locomotion: Wheelchair - Score, Comprehension - Score, Expression - Score, Social Interaction - Score, Problem Solving - Score, Memory - Score were [electro nically] signed by Carmen Caal CNA on ThuSep 19 2018 01:14:57 GMT-0500 (Central Daylight Time)
[2018-09-19] MEDS: ONDANSETRON 4 MG (ODT) TAB PO PRN (02:19)
[2018-09-19] MEDS: HEPARIN 5000 UNIT/ML 1 ML VIAL SQ SCH (06:38)
[2018-09-19] MEDS: PANTOPRAZOLE 40MG TABLET PO SCH (07:17)
[2018-09-19 07:47] LABS: Absolute Lymphocytes (CBC) 1.1 K/uL (0.7-4.9); Absolute Monocytes 0.6 K/uL (0.1-1.3); Absolute Neutrophil 3.6 K/uL (1.8-8.0); Eosinophils % 2.3 % (0-4.4); Hematocrit 29.2 % (39.6-49.0); Lymphocytes % 20.4 % (15.3-44.8); MPV 6.8 fL (7.6-11.3); Monocytes % 10.5 % (3.3-12.3); RBC Red Blood Cell Count 3.13 M/uL (4.33-5.43)
[2018-09-19] MEDS: LISINOPRIL 10 MG TAB PO SCH (08:00)
[2018-09-19] MEDS: CARVEDILOL 6.25 MG TAB PO SCH ×2 (08:00→20:00)
[2018-09-19 08:06] LABS: Potassium 4.7 mmol/L (3.5-5.1)
[2018-09-19] MEDS: FERROUS SULFATE 325 MG TAB PO SCH (08:21)
[2018-09-19] MEDS: CYANOCOBALAMIN 1,000 MCG TAB PO SCH (08:21)
[2018-09-19] MEDS: DULOXETINE 20 MG CAP PO SCH (08:21)
[2018-09-19] MEDS: MAGNESIUM OXIDE 400 MG TAB PO SCH (08:21)
[2018-09-19] MEDS: OCUVITE (VIT A,C & E/LUTEIN/MINERAL) TABLET PO SCH (08:21)
[2018-09-19] MEDS: SIMETHICONE 80 MG TAB PO PRN (09:05)
[2018-09-19] MEDS: BISACODYL 10 MG RECTAL SUPP PR PRN (13:19)
[2018-09-19] MEDS ORDERED: LACTULOSE 20 GM/30 ML UCUP PO PRN (14:05)
--- NOTE | 2018-09-19 16:13 | FAST ---
SHIFT START DATE/TIME: 09/19/2018 07:00 (CDT) SHIFT END DATE/TIME: 09/19/2018 19:00 (CDT) NAME JOSE ALEJANDRO ROSS DATE OF : 1930 DATE OF ADMISSION: 09/14/2018 18:33 (CDT) PHONE: AGE: 88 N# [id number] GENDER: Male ENCOUNTER PHYSICIAN: Dr. Deandre Solis M.D. 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 EATING: EATING - STEP 1: Does the patient require the assistance of a person or device, or need extra time when eating? Yes. EATING - STEP 2: Does the patient require the assistance of a helper? Yes. EATING - STEP 3: Does the patient perform half or more of the eating tasks? Yes. EATING - STEP 4: Does the patient need only supervision, cuing, coaxing OR help to apply an orthosis OR help to cut fo od, open containers, pour liquids, or butter bread? Yes. EATING - SCORE: 5-SUP GROOMING: Activity did not occur on this shift GROOMING - SCORE: 0-UNK GROOMING - COMMENTS: Pt resting in bed BATHING: Activity did not occur on this shift BATHING - SCORE: 0-UNK DRESSING - UPPER BODY: Activity did not occur on this shift ARTICLES SCORE Total number of steps: 0 DRESSING - UPPER BODY - SCORE: 0-UNK DRESSING - LOWER BODY: Activity did not occur on this shift ARTICLES SCORE Total number of steps: 0 DRESSING - LOWER BODY - SCORE: 0-UNK TOILETING: TOILETING - STEP 1: Does the patient require the assistance of a person or device, or need extra time with toileting? Yes . TOILETING - STEP 2: Does the patient require the assistance of a helper? Yes. TOILETING - STEP 3: How much assistance does the patient require from the helper? Hands-on assistance from the helper TOILETING - STEP 4: Of the 3 tasks: 1) Adjusting clothing prior to use, 2) Cleansing of perineal area, 3) Adjusting clot dileep after use; How many tasks does the patient perform WITHOUT assistance of the helper? Three tasks with steadying assistance from the helper TOILETING - SCORE: 4-MIN BLADDER MANAGEMENT: Patient is on renal dialysis or peritoneal dialysis and no voiding activity BLADDER MANAGEMENT - SCORE: 7-IND BLADDER MANAGEMENT - FREQUENCY OF ACCIDENTS: BLADDER MANAGEMENT(FA) - STEP 1: How many accidents has the patient had during the current shift? 0 BOWEL MANAGEMENT: BOWEL MANAGEMENT - STEP 1: Does the patient control bowels completely and intentionally without equipment devices or medications AND is always continent? No. BOWEL MANAGEMENT - STEP 2: Does the patient require the assistance of a helper? No, patient requires medication for control such as stool softeners, suppositories, laxatives, enemas, or OTC medications BOWEL MANAGEMENT - SCORE: 6-CATHY BOWEL MANAGEMENT - FREQUENCY OF ACCIDENTS: BOWEL MANAGEMENT(FA) - STEP 1: How many accidents has the patient had during the current shift? 0 TRANSFERS: BED, CHAIR, WHEELCHAIR: TRANSFERS: BED, CHAIR, WHEELCHAIR - STEP 1: Does the patient require assistance of a person or device, or need extra time with bed, chair, or whe elchair transfers? Yes. TRANSFERS: BED, CHAIR, WHEELCHAIR - STEP 2: Does the patient require the assistance of a helper? Yes. TRANSFERS: BED, CHAIR, WHEELCHAIR - STEP 3: How much assistance does the patient require from the helper? Steadying/guiding assistance TRANSFERS: BED, CHAIR, WHEELCHAIR - SCORE: 4-MIN TRANSFERS: TOILET: TRANSFERS: TOILET - STEP 1: Does the patient require the assistance of a person or device, or need extra time with toilet transfe rs? Yes. TRANSFERS: TOILET - STEP 2: Does the patient require the assistance of a helper? Yes. TRANSFERS: TOILET - STEP 3: How much assistance does the patient require from the helper? Patient performs half or more of the tr ansferring tasks TRANSFERS: TOILET - STEP 4: Does the patient need only incidental help such as contact guard or steadying during toilet transfer? No. Patient needs more than incidental help TRANSFERS: TOILET - SCORE: 3-MOD TRANSFERS: SHOWER: Activity did not occur on this shift TRANSFERS: SHOWER - SCORE: 0-UNK TRANSFERS: TUB: Activity did not occur on this shift TRANSFERS: TUB - SCORE: 0-UNK LOCOMOTION: WALK: Activity did not occur on this shift LOCOMOTION: WALK - SCORE: 0-UNK LOCOMOTION: WHEELCHAIR: Activity did not occur on this shift LOCOMOTION: WHEELCHAIR - SCORE: 0-UNK COMPREHENSION: COMPREHENSION: TYPE: Both COMPREHENSION - STEP 1: Does the patient require help from a person or device, or need extra time to understand complex and a bstract ideas (such as current events, finances, discharge planning, medical issues, relationships, e tc)? No. COMPREHENSION - STEP 2: Does the patient need extra time, require an assistive device (such as glasses for visual comprehensi on or a hearing aid for auditory comprehension) or does s/he have mild difficulty understanding compl ex and abstract information? Yes. COMPREHENSION - SCORE: 6-CATHY EXPRESSION EXPRESSION: TYPE: Both EXPRESSION - STEP 1: Does the patient require help from a person or device, or need extra time expressing complex and abst ract ideas (such as current events, finances, discharge planning, medical issues, relationships, etc) ? Yes. EXPRESSION - STEP 2: Does the patient require help to express basic necessities or ideas (such as hunger, thirst, sleep, s afety, daily schedule, room location, or discomfort) half or more of the time? No. EXPRESSION - STEP 3: How often does the patient need help to express directions and conversation about basic needs? Less t [place] 10% of the time EXPRESSION - SCORE: 5-SUP SOCIAL INTERACTION: SOCIAL INTERACTION - STEP 1: Does the patient require a helper to interact with others in social and therapeutic situations? Yes. SOCIAL INTERACTION - STEP 2: Does the patient interact appropriately half or more of the time? Yes. SOCIAL INTERACTION - STEP 3: How often does the patient need help to interact appropriately? 10-24% of the time SOCIAL INTERACTION - SCORE: 4-MIN PROBLEM SOLVING: PROBLEM SOLVING - STEP 1: Does the patient need help from a person or device, or need extra time to solve complex problems such as managing a checking account or confronting interpersonal problems? Yes. PROBLEM SOLVING - STEP 2: Does the patient solve basic routine problems half or more of the time? Yes. PROBLEM SOLVING - STEP 3: How often does the patient need help to solve basic routine problems? 10%-24% of the time PROBLEM SOLVING - SCORE: 4-MIN MEMORY: MEMORY - STEP 1: Does the patient need help from a person or device, or need extra time to remember frequently encount ered people, daily routines, and executing requests? Yes. MEMORY - STEP 2: How often does the patient need help to remember frequently encountered people, daily routines, and e xecuting requests? 25% - 49% of the time MEMORY - SCORE: 3-MOD SIGNATURE PANEL: The following modified sections: Eating - Score, Grooming - Score, Grooming - Comments:, Bathing - Sc ore, Dressing - Upper Body - Score, Dressing - Lower Body - Score, Toileting - Score, Bladder Managem ent - Score, Bowel Management - Score, Transfers: Bed, Chair, Wheelchair - Score, Transfers: Toilet - Score, Transfers: Shower - Score, Transfers: Tub - Score, Locomotion: Walk - Score, Locomotion: Whee lchair - Score, Comprehension - Score, Expression - Score, Social Interaction - Score, Problem Solvin g - Score, Memory - Score were [electronically] signed by Su Pop C.N.A. on ThuSep 19 2018 16: 12:56 T-0500 (Central Daylight Time)
[2018-09-19] MEDS: MELATONIN 3 MG TABLET PO SCH (20:16)
[2018-09-19] MEDS: ATORVASTATIN 20 MG TAB PO SCH (20:16)
[2018-09-19] MEDS: GABAPENTIN 100 MG CAP PO SCH (20:16)
[2018-09-19] MEDS: NEPRO SHAKE 237 ML CAN PO SCH (20:17)
[2018-09-19] MEDS: DOCUSATE NA/SENNA CONC 1 TAB PO SCH (20:18)
--- NOTE | 2018-09-20 00:23 | FAST ---
SHIFT START DATE/TIME: 09/19/2018 19:00 (CDT) SHIFT END DATE/TIME: 09/20/2018 07:00 (CDT) NAME JOSE ALEJANDRO ROSS DATE OF : 1930 DATE OF ADMISSION: 09/14/2018 18:33 (CDT) PHONE: AGE: 88 N# [id number] GENDER: Male ENCOUNTER PHYSICIAN: Dr. Deandre Solis M.D. 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 EATING: Activity did not occur on this shift EATING - SCORE: 0-UNK GROOMING: Activity did not occur on this shift GROOMING - SCORE: 0-UNK BATHING: Activity did not occur on this shift BATHING - SCORE: 0-UNK DRESSING - UPPER BODY: Patient is not dressing in public clothing ARTICLES SCORE Total number of steps: 0 DRESSING - UPPER BODY - SCORE: 0-UNK DRESSING - LOWER BODY: Patient is not dressing in public clothing ARTICLES SCORE Total number of steps: 0 DRESSING - LOWER BODY - SCORE: 0-UNK TOILETING: TOILETING - STEP 1: Does the patient require the assistance of a person or device, or need extra time with toileting? Yes . TOILETING - STEP 2: Does the patient require the assistance of a helper? Yes. TOILETING - STEP 3: How much assistance does the patient require from the helper? Hands-on assistance from the helper TOILETING - STEP 4: Of the 3 tasks: 1) Adjusting clothing prior to use, 2) Cleansing of perineal area, 3) Adjusting clot dileep after use; How many tasks does the patient perform WITHOUT assistance of the helper? No tasks; h candida performs all three tasks TOILETING - SCORE: 1-DEP BLADDER MANAGEMENT: Patient is on renal dialysis or peritoneal dialysis and no voiding activity BLADDER MANAGEMENT - SCORE: 7-IND BOWEL MANAGEMENT: [place] removes incontinent device (depends, pull ups, etc.); cleans the patient after accident / inco ntinent episode; and, applies new device (depends, pull-ups, padding, etc.). BOWEL MANAGEMENT - SCORE: 1-DEP TRANSFERS: BED, CHAIR, WHEELCHAIR: TRANSFERS: BED, CHAIR, WHEELCHAIR - STEP 1: Does the patient require assistance of a person or device, or need extra time with bed, chair, or whe elchair transfers? Yes. TRANSFERS: BED, CHAIR, WHEELCHAIR - STEP 2: Does the patient require the assistance of a helper? Yes. TRANSFERS: BED, CHAIR, WHEELCHAIR - STEP 3: How much assistance does the patient require from the helper? Lifting of the patient TRANSFERS: BED, CHAIR, WHEELCHAIR - STEP 4: Does the helper lift the patient ONLY up? ONLY down? Up AND Down? Patient needs help with all lifting TRANSFERS: BED, CHAIR, WHEELCHAIR - SCORE: 1-DEP TRANSFERS: TOILET: TRANSFERS: TOILET - STEP 1: Does the patient require the assistance of a person or device, or need extra time with toilet transfe rs? Yes. TRANSFERS: TOILET - STEP 2: Does the patient require the assistance of a helper? Yes. TRANSFERS: TOILET - STEP 3: How much assistance does the patient require from the helper? Patient performs less than half of the transferring tasks TRANSFERS: TOILET - STEP 4: Does the patient require total assistance for the toilet transfer such as the helper doing basically all the lifting? Yes. TRANSFERS: TOILET - SCORE: 1-DEP TRANSFERS: SHOWER: Activity did not occur on this shift TRANSFERS: SHOWER - SCORE: 0-UNK TRANSFERS: TUB: Activity did not occur on this shift TRANSFERS: TUB - SCORE: 0-UNK LOCOMOTION: WALK: Activity did not occur on this shift LOCOMOTION: WALK - SCORE: 0-UNK LOCOMOTION: WHEELCHAIR: Activity did not occur on this shift LOCOMOTION: WHEELCHAIR - SCORE: 0-UNK COMPREHENSION: COMPREHENSION: TYPE: Both COMPREHENSION - STEP 1: Does the patient require help from a person or device, or need extra time to understand complex and a bstract ideas (such as current events, finances, discharge planning, medical issues, relationships, e tc)? Yes. COMPREHENSION - STEP 2: Does the patient require help to understand questions or statements about basic needs or ideas (such as hunger, thirst, sleep, safety, daily schedule, room location, or discomfort) half or more of the t ezio? No. COMPREHENSION - STEP 3: How often does the patient need help to understand directions and conversation about basic needs? 25% - 49% of the time COMPREHENSION - SCORE: 3-MOD EXPRESSION EXPRESSION: TYPE: Both EXPRESSION - STEP 1: Does the patient require help from a person or device, or need extra time expressing complex and abst ract ideas (such as current events, finances, discharge planning, medical issues, relationships, etc) ? Yes. EXPRESSION - STEP 2: Does the patient require help to express basic necessities or ideas (such as hunger, thirst, sleep, s afety, daily schedule, room location, or discomfort) half or more of the time? No. EXPRESSION - STEP 3: How often does the patient need help to express directions and conversation about basic needs? 25-49% of the time EXPRESSION - SCORE: 3-MOD SOCIAL INTERACTION: SOCIAL INTERACTION - STEP 1: Does the patient require a helper to interact with others in social and therapeutic situations? No. SOCIAL INTERACTION - STEP 2: Does the patient need extra time in social situations, OR does s/he interact with staff, other patien ts, and family members ONLY in structured environments, OR does s/he require medication for social in teraction? Yes, patient requires medication for social interaction SOCIAL INTERACTION - SCORE: 6-CATHY PROBLEM SOLVING: PROBLEM SOLVING - STEP 1: Does the patient need help from a person or device, or need extra time to solve complex problems such as managing a checking account or confronting interpersonal problems? Yes. PROBLEM SOLVING - STEP 2: Does the patient solve basic routine problems half or more of the time? Yes. PROBLEM SOLVING - STEP 3: How often does the patient need help to solve basic routine problems? 25%-49% of the time PROBLEM SOLVING - SCORE: 3-MOD MEMORY: MEMORY - STEP 1: Does the patient need help from a person or device, or need extra time to remember frequently encount ered people, daily routines, and executing requests? Yes. MEMORY - STEP 2: How often does the patient need help to remember frequently encountered people, daily routines, and e xecuting requests? 25% - 49% of the time MEMORY - SCORE: 3-MOD SIGNATURE PANEL: The following modified sections: Eating - Score, Grooming - Score, Dressing - Upper Body - Score, [place] ssing - Lower Body - Score, Toileting - Score, Bladder Management - Score, Bowel Management - Score, Transfers: Bed, Chair, Wheelchair - Score, Transfers: Toilet - Score, Transfers: Shower - Score, [place] sfers: Tub - Score, Locomotion: Walk - Score, Locomotion: Wheelchair - Score, Comprehension - Score, Expression - Score, Social Interaction - Score, Problem Solving - Score, Memory - Score were [electro nically] signed by Carmen Caal CNA on ThuSep 20 2018 00:22:59 GMT-0500 (Central Daylight Time)
[2018-09-20] MEDS: PANTOPRAZOLE 40MG TABLET PO SCH (06:37)
[2018-09-20] MEDS: FERROUS SULFATE 325 MG TAB PO SCH (07:21)
[2018-09-20] MEDS: OCUVITE (VIT A,C & E/LUTEIN/MINERAL) TABLET PO SCH (07:21)
[2018-09-20] MEDS: POLYETHYL GLY 3350 17 GM/DOSE PO SCH (07:21)
[2018-09-20] MEDS: CYANOCOBALAMIN 1,000 MCG TAB PO SCH (07:21)
[2018-09-20] MEDS: DULOXETINE 20 MG CAP PO SCH (07:21)
[2018-09-20] MEDS: MAGNESIUM OXIDE 400 MG TAB PO SCH (07:21)
[2018-09-20] MEDS: CARVEDILOL 6.25 MG TAB PO SCH ×2 (07:23→19:41)
[2018-09-20] MEDS: LISINOPRIL 10 MG TAB PO SCH (07:44)
[2018-09-20] MEDS: HEPARIN 5000 UNIT/ML 1 ML VIAL SQ SCH (08:00)
[2018-09-20] MEDS: ONDANSETRON 4 MG (ODT) TAB PO PRN (09:02)
[2018-09-20] MEDS ORDERED: ALBUTEROL 2.5 MG/3 ML NEB SOL NEB PRN (10:07)
--- NOTE | 2018-09-20 11:00 | FAST ---
ENCOUNTER DATE AND TIME: 09/14/2018 08:00 (CDT) NAME JOSE ALEJANDRO ROSS DATE OF : 1930 DATE OF ADMISSION: 09/14/2018 18:33 (CDT) PHONE: AGE: 88 N# [id number] GENDER: Male ENCOUNTER PHYSICIAN: Dr. Deandre Solis M.D. 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 EATING: Activity did not occur on this shift EATING - SCORE: 0-UNK GROOMING: Oral care Wash, rinse, and dry face Wash, rinse, and dry hands GROOMING - STEP 1: Does the patient require the assistance of a person or device, or need extra time when grooming? Yes. GROOMING - STEP 2: Does the patient require the assistance of a helper? Yes. GROOMING - STEP 3: How much assistance does the patient require from the helper? More than incidental help GROOMING - STEP 4: How many grooming tasks does the patient perform WITHOUT the assistance of the helper? Half or more o f the grooming tasks GROOMING - SCORE: 3-MOD BATHING: Abdomen Buttocks Chest Left arm Left lower leg and foot Left upper leg Perineal area Right arm Right lower leg and foot Right upper leg BATHING - STEP 1: Does the patient require the assistance of a person or device, or need extra time when bathing? Yes. BATHING - STEP 2: Does the patient require the assistance of a helper? Yes. BATHING - STEP 3: How much assistance does the patient require from the helper? More than just incidental help BATHING - STEP 4: What percent of the body parts did the patient bathe WITHOUT the helper? Half or more of the body par ts BATHING - SCORE: 3-MOD DRESSING - UPPER BODY: T-shirt/pullover shirt (four steps) ARTICLES SCORE Total number of steps: 4 DRESSING - UPPER BODY - STEP 1: Does the patient require help from a person or device, or need extra time when dressing above the woody st? Yes. DRESSING - UPPER BODY - STEP 2: Does the patient require the assistance of a helper? Yes. DRESSING - UPPER BODY - STEP 3: Does the helper touch the patient while dressing? Yes. DRESSING - UPPER BODY - STEP 4: How many of the total steps does the patient complete on his/her own? 1 DRESSING - UPPER BODY - STEP 5: Does Patient require total assistance for dressing above the waist such as the helper holding clothin g and performing basically all the activities? No. DRESSING - UPPER BODY - SCORE: 2-MAX DRESSING - LOWER BODY: Elastic waist pants (three steps) Sock - Left foot (one step) Sock - Right foot (one step) Underwear (three steps) ARTICLES SCORE Total number of steps: 8 DRESSING - LOWER BODY - STEP 1: Does the patient require help from a person or device, or need extra time when dressing below the woody st? Yes. DRESSING - LOWER BODY - STEP 2: Does the patient require the assistance of a helper? Yes. DRESSING - LOWER BODY - STEP 3: Does the helper touch the patient while dressing? Yes. DRESSING - LOWER BODY - STEP 4: How many of the total steps does the patient complete on his/her own? 1 DRESSING - LOWER BODY - STEP 5: Does patient require total assistance for dressing below the waist such as the helper holding clothin g and performing basically all the activities? No. DRESSING - LOWER BODY - SCORE: 2-MAX TOILETING: Activity did not occur on this shift TOILETING - SCORE: 0-UNK BLADDER MANAGEMENT: Activity did not occur on this shift BLADDER MANAGEMENT - SCORE: 7-IND BOWEL MANAGEMENT: Activity did not occur on this shift BOWEL MANAGEMENT - SCORE: 7-IND TRANSFERS: BED, CHAIR, WHEELCHAIR: Activity did not occur on this shift TRANSFERS: BED, CHAIR, WHEELCHAIR - SCORE: 0-UNK TRANSFERS: TOILET: Activity did not occur on this shift TRANSFERS: TOILET - SCORE: 0-UNK TRANSFERS: SHOWER: TRANSFERS: SHOWER - STEP 1: Does the patient require the assistance of a person or device, or need extra time with shower transfe rs? Yes. TRANSFERS: SHOWER - STEP 2: Does the patient require the assistance of a helper? Yes. TRANSFERS: SHOWER - STEP 3: How much assistance does the patient require from the helper? More than incidental help TRANSFERS: SHOWER - STEP 4: How much more help does the patient require from the helper? Lifting the patient either up OR down fr om the wheelchair onto the shower chair TRANSFERS: SHOWER - SCORE: 3-MOD TRANSFERS: TUB: Activity did not occur on this shift TRANSFERS: TUB - SCORE: 0-UNK LOCOMOTION: WALK: Activity did not occur on this shift LOCOMOTION: WALK - SCORE: 0-UNK LOCOMOTION: WHEELCHAIR: Activity did not occur on this shift LOCOMOTION: WHEELCHAIR - SCORE: 0-UNK LOCOMOTION: STAIRS: Activity did not occur on this shift LOCOMOTION: STAIRS - SCORE: 0-UNK COMPREHENSION: COMPREHENSION: TYPE: Both COMPREHENSION - STEP 1: Does the patient require help from a person or device, or need extra time to understand complex and a bstract ideas (such as current events, finances, discharge planning, medical issues, relationships, e tc)? No. COMPREHENSION - STEP 2: Does the patient need extra time, require an assistive device (such as glasses for visual comprehensi on or a hearing aid for auditory comprehension) or does s/he have mild difficulty understanding compl ex and abstract information? Yes. COMPREHENSION - SCORE: 6-CATHY EXPRESSION EXPRESSION: TYPE: Both EXPRESSION - STEP 1: Does the patient require help from a person or device, or need extra time expressing complex and abst ract ideas (such as current events, finances, discharge planning, medical issues, relationships, etc) ? Yes. EXPRESSION - STEP 2: Does the patient require help to express basic necessities or ideas (such as hunger, thirst, sleep, s afety, daily schedule, room location, or discomfort) half or more of the time? No. EXPRESSION - STEP 3: How often does the patient need help to express directions and conversation about basic needs? 10-24% of the time EXPRESSION - SCORE: 4-MIN SOCIAL INTERACTION: SOCIAL INTERACTION - STEP 1: Does the patient require a helper to interact with others in social and therapeutic situations? Yes. SOCIAL INTERACTION - STEP 2: Does the patient interact appropriately half or more of the time? Yes. SOCIAL INTERACTION - STEP 3: How often does the patient need help to interact appropriately? 10-24% of the time SOCIAL INTERACTION - SCORE: 4-MIN PROBLEM SOLVING: PROBLEM SOLVING - STEP 1: Does the patient need help from a person or device, or need extra time to solve complex problems such as managing a checking account or confronting interpersonal problems? Yes. PROBLEM SOLVING - STEP 2: Does the patient solve basic routine problems half or more of the time? Yes. PROBLEM SOLVING - STEP 3: How often does the patient need help to solve basic routine problems? 10%-24% of the time PROBLEM SOLVING - SCORE: 4-MIN MEMORY: MEMORY - STEP 1: Does the patient need help from a person or device, or need extra time to remember frequently encount ered people, daily routines, and executing requests? Yes. MEMORY - STEP 2: How often does the patient need help to remember frequently encountered people, daily routines, and e xecuting requests? 10% - 24% of the time MEMORY - SCORE: 4-MIN SIGNATURE PANEL: The following modified sections: Eating - Score, Grooming - Score, Bathing - Score, Dressing - Upper Body - Score, Dressing - Lower Body - Score, Toileting - Score, Transfers: Bed, Chair, Wheelchair - S core, Transfers: Toilet - Score, Transfers: Tub - Score, Transfers: Shower - Score, Comprehension - S core, Expression - Score, Social Interaction - Score, Problem Solving - Score, Memory - Score were [e lectronically] signed by Shayy Mendoza OT on ThuSep 20 2018 10:59:44 T-0500 (Central Daylight T ezio)
--- NOTE | 2018-09-20 11:10 | RAD REPORT ---
EXAM DESCRIPTION: [place] Single View09/20/2018 11:01 am CLINICAL HISTORY: Cough COMPARISON: September FINDINGS: Small to moderate bilateral pleural effusions unchanged Mild bilateral pulmonary opacities are unchanged. The heart remains enlarged IMPRESSION: No significant change since the prior exam
--- NOTE | 2018-09-20 14:42 | FAST ---
SHIFT START DATE/TIME: 09/20/2018 07:00 (CDT) SHIFT END DATE/TIME: 09/20/2018 19:00 (CDT) NAME JOSE ALEJANDRO ROSS DATE OF : 1930 DATE OF ADMISSION: 09/14/2018 18:33 (CDT) PHONE: AGE: 88 N# [id number] GENDER: Male ENCOUNTER PHYSICIAN: Dr. Deandre Solis M.D. 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 EATING: EATING - STEP 1: Does the patient require the assistance of a person or device, or need extra time when eating? Yes. EATING - STEP 2: Does the patient require the assistance of a helper? Yes. EATING - STEP 3: Does the patient perform half or more of the eating tasks? Yes. EATING - STEP 4: Does the patient need only supervision, cuing, coaxing OR help to apply an orthosis OR help to cut fo od, open containers, pour liquids, or butter bread? Yes. EATING - SCORE: 5-SUP GROOMING: Activity did not occur on this shift GROOMING - SCORE: 0-UNK BATHING: Activity did not occur on this shift BATHING - SCORE: 0-UNK DRESSING - UPPER BODY: Activity did not occur on this shift ARTICLES SCORE Total number of steps: 0 DRESSING - UPPER BODY - SCORE: 0-UNK DRESSING - LOWER BODY: Elastic waist pants (three steps) Tied or buckled shoe - Left foot (two steps) Tied or buckled shoe - Right foot (two steps) ARTICLES SCORE Total number of steps: 7 DRESSING - LOWER BODY - STEP 1: Does the patient require help from a person or device, or need extra time when dressing below the woody st? Yes. DRESSING - LOWER BODY - STEP 2: Does the patient require the assistance of a helper? Yes. DRESSING - LOWER BODY - STEP 3: Does the helper touch the patient while dressing? Yes. DRESSING - LOWER BODY - STEP 4: How many of the total steps does the patient complete on his/her own? 0 DRESSING - LOWER BODY - STEP 5: Does patient require total assistance for dressing below the waist such as the helper holding clothin g and performing basically all the activities? Yes. DRESSING - LOWER BODY - SCORE: 1-DEP TOILETING: Activity did not occur on this shift TOILETING - SCORE: 0-UNK BLADDER MANAGEMENT: [place] removes incontinent device (Depends, pull ups, etc.); cleans the patient after accident / inco ntinent episode; and, applies new incontinent device. BLADDER MANAGEMENT - SCORE: 1-DEP BLADDER MANAGEMENT - FREQUENCY OF ACCIDENTS: BLADDER MANAGEMENT(FA) - STEP 1: How many accidents has the patient had during the current shift? 1 BOWEL MANAGEMENT: Activity did not occur on this shift BOWEL MANAGEMENT - SCORE: 7-IND BOWEL MANAGEMENT - FREQUENCY OF ACCIDENTS: BOWEL MANAGEMENT(FA) - STEP 1: How many accidents has the patient had during the current shift? 0 TRANSFERS: BED, CHAIR, WHEELCHAIR: TRANSFERS: BED, CHAIR, WHEELCHAIR - STEP 1: Does the patient require assistance of a person or device, or need extra time with bed, chair, or whe elchair transfers? Yes. TRANSFERS: BED, CHAIR, WHEELCHAIR - STEP 2: Does the patient require the assistance of a helper? Yes. TRANSFERS: BED, CHAIR, WHEELCHAIR - STEP 3: How much assistance does the patient require from the helper? Steadying/guiding assistance TRANSFERS: BED, CHAIR, WHEELCHAIR - SCORE: 4-MIN TRANSFERS: TOILET: TRANSFERS: TOILET - STEP 1: Does the patient require the assistance of a person or device, or need extra time with toilet transfe rs? Yes. TRANSFERS: TOILET - STEP 2: Does the patient require the assistance of a helper? Yes. TRANSFERS: TOILET - STEP 3: How much assistance does the patient require from the helper? Patient performs half or more of the tr ansferring tasks TRANSFERS: TOILET - STEP 4: Does the patient need only incidental help such as contact guard or steadying during toilet transfer? No. Patient needs more than incidental help TRANSFERS: TOILET - SCORE: 3-MOD TRANSFERS: SHOWER: Activity did not occur on this shift TRANSFERS: SHOWER - SCORE: 0-UNK TRANSFERS: TUB: Activity did not occur on this shift TRANSFERS: TUB - SCORE: 0-UNK LOCOMOTION: WALK: Activity did not occur on this shift LOCOMOTION: WALK - SCORE: 0-UNK LOCOMOTION: WHEELCHAIR: Activity did not occur on this shift LOCOMOTION: WHEELCHAIR - SCORE: 0-UNK COMPREHENSION: COMPREHENSION: TYPE: Both COMPREHENSION - STEP 1: Does the patient require help from a person or device, or need extra time to understand complex and a bstract ideas (such as current events, finances, discharge planning, medical issues, relationships, e tc)? Yes. COMPREHENSION - STEP 2: Does the patient require help to understand questions or statements about basic needs or ideas (such as hunger, thirst, sleep, safety, daily schedule, room location, or discomfort) half or more of the t ezio? No. COMPREHENSION - STEP 3: How often does the patient need help to understand directions and conversation about basic needs? 10% - 24% of the time COMPREHENSION - SCORE: 4-MIN EXPRESSION EXPRESSION: TYPE: Both EXPRESSION - STEP 1: Does the patient require help from a person or device, or need extra time expressing complex and abst ract ideas (such as current events, finances, discharge planning, medical issues, relationships, etc) ? Yes. EXPRESSION - STEP 2: Does the patient require help to express basic necessities or ideas (such as hunger, thirst, sleep, s afety, daily schedule, room location, or discomfort) half or more of the time? No. EXPRESSION - STEP 3: How often does the patient need help to express directions and conversation about basic needs? 10-24% of the time EXPRESSION - SCORE: 4-MIN SOCIAL INTERACTION: SOCIAL INTERACTION - STEP 1: Does the patient require a helper to interact with others in social and therapeutic situations? Yes. SOCIAL INTERACTION - STEP 2: Does the patient interact appropriately half or more of the time? Yes. SOCIAL INTERACTION - STEP 3: How often does the patient need help to interact appropriately? 10-24% of the time SOCIAL INTERACTION - SCORE: 4-MIN PROBLEM SOLVING: PROBLEM SOLVING - STEP 1: Does the patient need help from a person or device, or need extra time to solve complex problems such as managing a checking account or confronting interpersonal problems? Yes. PROBLEM SOLVING - STEP 2: Does the patient solve basic routine problems half or more of the time? Yes. PROBLEM SOLVING - STEP 3: How often does the patient need help to solve basic routine problems? 10%-24% of the time PROBLEM SOLVING - SCORE: 4-MIN MEMORY: MEMORY - STEP 1: Does the patient need help from a person or device, or need extra time to remember frequently encount ered people, daily routines, and executing requests? Yes. MEMORY - STEP 2: How often does the patient need help to remember frequently encountered people, daily routines, and e xecuting requests? 25% - 49% of the time MEMORY - SCORE: 3-MOD SIGNATURE PANEL: The following modified sections: Eating - Score, Grooming - Score, Bathing - Score, Dressing - Upper Body - Score, Dressing - Lower Body - Score, Toileting - Score, Bladder Management - Score, Bowel Man agement - Score, Transfers: Bed, Chair, Wheelchair - Score, Transfers: Toilet - Score, Transfers: Rupa wer - Score, Transfers: Tub - Score, Locomotion: Walk - Score, Locomotion: Wheelchair - Score, Compre hension - Score, Expression - Score, Social Interaction - Score, Problem Solving - Score, Memory - Sc ore were [electronically] signed by Ruben ManzoNCande on ThuSep 20 2018 14:42:06 T-0500 ([place] Daylight [place])
[2018-09-20] MEDS ORDERED: MEGESTROL 400 MG/10 ML UCUP PO SCH (15:00)
--- NOTE | 2018-09-20 15:02 | FAST ---
ENCOUNTER DATE AND TIME: 09/20/2018 08:00 (CDT) NAME JOSE ALEJANDRO ROSS DATE OF : 1930 DATE OF ADMISSION: 09/14/2018 18:33 (CDT) PHONE: AGE: 88 SSN# [id number] GENDER: Male ENCOUNTER PHYSICIAN: Dr. Deandre Solis M.D. 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 EATING: Activity did not occur on this shift EATING - SCORE: 0-UNK GROOMING: Activity did not occur on this shift GROOMING - SCORE: 0-UNK BATHING: Activity did not occur on this shift BATHING - SCORE: 0-UNK DRESSING - UPPER BODY: Activity did not occur on this shift Patient is not dressing in public clothing ARTICLES SCORE Total number of steps: 0 DRESSING - UPPER BODY - SCORE: 0-UNK DRESSING - LOWER BODY: Activity did not occur on this shift Patient is not dressing in public clothing ARTICLES SCORE Total number of steps: 0 DRESSING - LOWER BODY - SCORE: 0-UNK TOILETING: Activity did not occur on this shift TOILETING - SCORE: 0-UNK BLADDER MANAGEMENT: Activity did not occur on this shift BLADDER MANAGEMENT - SCORE: 7-IND BOWEL MANAGEMENT: Activity did not occur on this shift BOWEL MANAGEMENT - SCORE: 7-IND TRANSFERS: BED, CHAIR, WHEELCHAIR: Activity did not occur on this shift TRANSFERS: BED, CHAIR, WHEELCHAIR - SCORE: 0-UNK TRANSFERS: TOILET: Activity did not occur on this shift TRANSFERS: TOILET - SCORE: 0-UNK TRANSFERS: SHOWER: Activity did not occur on this shift TRANSFERS: SHOWER - SCORE: 0-UNK TRANSFERS: TUB: Activity did not occur on this shift TRANSFERS: TUB - SCORE: 0-UNK LOCOMOTION: WALK: Activity did not occur on this shift LOCOMOTION: WALK - SCORE: 0-UNK LOCOMOTION: WHEELCHAIR: Activity did not occur on this shift LOCOMOTION: WHEELCHAIR - SCORE: 0-UNK LOCOMOTION: STAIRS: Activity did not occur on this shift LOCOMOTION: STAIRS - SCORE: 0-UNK COMPREHENSION: COMPREHENSION - SCORE: 0-UNK EXPRESSION EXPRESSION - SCORE: 0-UNK SOCIAL INTERACTION: SOCIAL INTERACTION - SCORE: 0-UNK PROBLEM SOLVING: PROBLEM SOLVING - SCORE: 0-UNK MEMORY: MEMORY - SCORE: 0-UNK SIGNATURE PANEL: The following modified sections: Transfers: Bed, Chair, Wheelchair - Score, Transfers: Toilet - Score , Locomotion: Walk - Score, Locomotion: Wheelchair - Score, Locomotion: Stairs - Score were [cheri hurtado] signed by Mert Ferguson PTA on ThuSep 20 2018 15:01:05 GMT-0500 (Central Daylight Time)
--- NOTE | 2018-09-20 17:54 | R.PN ---
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 SUBJECTIVE: Pt denied any Shortness of Breath. Pt denied any depression. Hgb 9.1, creatinine 5.79, prealbumin 11.8. Barium swallow test shows no aspiration but significant es ophageal stasis and reflux. VITAL SIGNS Temperature: 97.5 F SBP/DBP: 109/60 Pulse: 70 Resp: 16 MEDICATION ALLERGIES: DOXYCYCLINE Iodine ENVIRONMENTAL ALLERGIES: None Known - Substance Allergies None Known - Other Allergies None Known NURSING: - Shower allowing shower - Bladder care per protocol - Skin care per protocol PRECAUTIONS: - Fall Precaution Bed and chair alarm ACTIVITIES OOB only with supervision THERAPIES: - Occupational Therapy Evaluate and Treat. Visual Perceptual Training. Cognitive Retraining. - Speech Therapy Cognitive Training. Memory Strategies. Speech Intelligibility Training. Expressive Language Skills. R eceptive Language Skills. - Physical Therapy Evaluate and Treat. PHYSICAL EXAM - Gen Alert and awake Lying in bed No apparent distress Oriented to: person, time, and place - Skin No breakdown No abnormalities - Eyes No abnormalities - ENMT No abnormalities - Neck No abnormalities - CVS RRR - Chest Clear - Abd + bowel sounds - GI nondistended Deferred - No abnormalities - Ext No significant edema - MSK 4+/5 weakness in left upper and lower extremity - Neuro 4/5 strength right upper and lower extremities. Mild expressive and receptive aphasia. - Psych No abnormalities ASSESSMENT: Pt. is a 88 yo Right-handed white male.On 09/01/2018 Pt. presented to [facility] with sudden onset of right-side weakness.On 09/01/2018 he was admitted to [facility] with diagnosis Left MCA.His impairment category is Stroke 01 - Right Body (Left Brain) (01.2 ).Pre-morbidly, Pt. was independent/mod-I in Self-Care, Sphincter Control, Transfers Control, Locomot ion, Communication, and Social Cognition; and he had good Sphincter Control.Currently, he has deficit s of Transfers Control, Locomotion, Communication, Social Cognition, Endurance, Balance, Safety Aware ness, and Self-Care.Pt. is now referred to [facility] for acute in-patient giancarlo abilitation in order to maximize patient's functional independence in activities of daily living, str ength, ROM, and mobility.- Rehab Goal Patient has realistic goal of being discharged at assistance level 6-Princess to reside at Home with Fam ming/Relatives. MDM/PLAN: - Physical Therapy Gait dysfunction - to improve, our physical therapists will perform initial evaluation of pt's statu s upon admission and devise an individualized program for Gait Training, and Wheel Chair mobility Inability to transfer - to improve, our physical therapists will perform initial evaluation of pt's status upon admission and devise an individualized program for Bed mobility Need for home safety evaluation - to improve, our physical therapists will perform initial evaluatio n of pt's status upon admission and devise an individualized program for Home Evaluation Need in caregiver upon discharge - to improve, our physical therapists will perform initial evaluati on of pt's status upon admission and devise an individualized program for Caregiver Training Edema - to improve, our physical therapists will perform initial evaluation of pt's status upon admi ssion and devise an individualized program for Elevation Training, and Lymphedema Therapy New precaution - to improve, our physical therapists will perform initial evaluation of pt's status upon admission and devise an individualized program for Patient precaution education Poor balance - to improve, our physical therapists will perform initial evaluation of pt's status up on admission and devise an individualized program for Balance Training Poor endurance - to improve, our physical therapists will perform initial evaluation of pt's status upon admission and devise an individualized program for Endurance Training Weakness - to improve, our physical therapists will perform initial evaluation of pt's status upon a dmission and devise an individualized program for Aquatic Therapy, Neuromuscular Reeducation, and Str engthening Achieving independence - to improve, our physical therapists will perform initial evaluation of pt's status upon admission and devise an individualized program for Community Reintegration Activities - Occupational Therapy ADL deficits - to improve, our occupation therapists will perform initial evaluation of pt's status upon admission and devise an individualized program for Bathing, Bed mobility, Community Reintegratio n, Cooking, Dressing, Eating, Fine Motor Skills, Grooming, Homemaking, Kitchen Mobility, Laundry, Pat ient Education, Safety Awareness, Splinting - Positioning, Transfers(Toilet, Tub, Shower), and Wheel Chair Management Cognitive deficits - to improve, our occupation therapists will perform initial evaluation of pt's s tatus upon admission and devise an individualized program for Cognition - orientation Need for day care provider - to improve, our occupation therapists will perform initial evaluation of pt's status upon admission and devise an individualized program for Caregiver Training Weakness - to improve, our occupation therapists will perform initial evaluation of pt's status upon admission and devise an individualized program for Aquatic Therapy, Balance, Endurance, UE ROM, and UE strengthening - Diet Type Continue Regular - Diet - Liquid Texture Continue Regular - Tube Feed Continue N/A - Bladder care per protocol - Weight Bearing Precaution WBAT right LE - Fall Precaution Bed and chair alarm - Skin care per protocol - Diet - Solid Texture Continue Regular - Shower allowing shower for Dementia, TBI, Stroke, or others FUNCTIONAL STATUS: UPDATED AT WEEKLY TEAM CONFERENCE - Bladder Same accident frequency: 7-Ind - No accidents in the past 7 days - Bowel Same accident frequency: 7-Ind - No accidents in the past 7 days - Walking Same score based on distance walked: 1(<=50ft) - Wheelchair Same score based on distance traveled: 0(N/A) FUNCTIONAL STATUS: - Self-Care A. Eating Princess B. Grooming sup C. Bathing sup D. Dressing - Upper sup E. Dressing - Lower sup F. Toileting sup - Sphincter Control G: Bladder control Ind H: Bowel control Ind - Transfers Control I. Bed/Chair/Wheelchair maxA J. Toilet maxA K. Tub/Shower ADNO - Locomotion L. Walk/Wheelchair (C) maxA L. Walk/Wheelchair (W) maxA M. Stairs ADNO - Communication N. Comprehension (B) Gale O. Expression (B) Gale - Social Cognition P. Social Interaction Gale Q. Problem Solving modA R. Memory modA - Endurance Fair - Balance Fair - Safety Awareness Fair CURRENT FUNC. DEFICITS: Transfers Control, Locomotion, Communication, Social Cognition, Endurance, Balance, Safety Awareness, and Self-Care SIGNATURE PANEL: (CDT)
[2018-09-20] MEDS: EPOETIN ALFA 10,000 UNIT/ML VIAL IV SCH (17:59)
[2018-09-20] MEDS: MELATONIN 3 MG TABLET PO SCH (20:24)
[2018-09-20] MEDS: DOCUSATE NA/SENNA CONC 1 TAB PO SCH (20:24)
[2018-09-20] MEDS: GABAPENTIN 100 MG CAP PO SCH (20:24)
[2018-09-20] MEDS: MEGESTROL 400 MG/10 ML UCUP PO SCH (20:24)
[2018-09-20] MEDS: ATORVASTATIN 20 MG TAB PO SCH (20:24)
[2018-09-20] MEDS: NEPRO SHAKE 237 ML CAN PO SCH (20:24)
--- NOTE | 2018-09-21 03:12 | FAST ---
SHIFT START DATE/TIME: 09/20/2018 19:00 (CDT) SHIFT END DATE/TIME: 09/21/2018 07:00 (CDT) NAME JOSE ALEJANDRO ROSS DATE OF : 1930 DATE OF ADMISSION: 09/14/2018 18:33 (CDT) PHONE: AGE: 88 SSN# [id number] GENDER: Male ENCOUNTER PHYSICIAN: Dr. Deandre Solis M.D. 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 EATING: Activity did not occur on this shift EATING - SCORE: 0-UNK GROOMING: Activity did not occur on this shift GROOMING - SCORE: 0-UNK BATHING: Activity did not occur on this shift BATHING - SCORE: 0-UNK DRESSING - UPPER BODY: Activity did not occur on this shift ARTICLES SCORE Total number of steps: 0 DRESSING - UPPER BODY - SCORE: 0-UNK DRESSING - LOWER BODY: Activity did not occur on this shift ARTICLES SCORE Total number of steps: 0 DRESSING - LOWER BODY - SCORE: 0-UNK TOILETING: TOILETING - STEP 1: Does the patient require the assistance of a person or device, or need extra time with toileting? Yes . TOILETING - STEP 2: Does the patient require the assistance of a helper? Yes. TOILETING - STEP 3: How much assistance does the patient require from the helper? Hands-on assistance from the helper TOILETING - STEP 4: Of the 3 tasks: 1) Adjusting clothing prior to use, 2) Cleansing of perineal area, 3) Adjusting clot dileep after use; How many tasks does the patient perform WITHOUT assistance of the helper? No tasks; h elper performs all three tasks TOILETING - SCORE: 1-DEP BLADDER MANAGEMENT: [place] removes incontinent device (Depends, pull ups, etc.); cleans the patient after accident / inco ntinent episode; and, applies new incontinent device. BLADDER MANAGEMENT - SCORE: 1-DEP BOWEL MANAGEMENT: Activity did not occur on this shift BOWEL MANAGEMENT - SCORE: 7-IND TRANSFERS: BED, CHAIR, WHEELCHAIR: Patient requires more than one helper and/or the use of a mechanical lift is utilized TRANSFERS: BED, CHAIR, WHEELCHAIR - SCORE: 1-DEP TRANSFERS: TOILET: Patient requires more than one helper and/or the use of a mechanical lift is utilized TRANSFERS: TOILET - SCORE: 1-DEP TRANSFERS: SHOWER: Activity did not occur on this shift TRANSFERS: SHOWER - SCORE: 0-UNK TRANSFERS: TUB: Activity did not occur on this shift TRANSFERS: TUB - SCORE: 0-UNK LOCOMOTION: WALK: Activity did not occur on this shift LOCOMOTION: WALK - SCORE: 0-UNK LOCOMOTION: WHEELCHAIR: Activity did not occur on this shift LOCOMOTION: WHEELCHAIR - SCORE: 0-UNK COMPREHENSION: COMPREHENSION: TYPE: Both COMPREHENSION - STEP 1: Does the patient require help from a person or device, or need extra time to understand complex and a bstract ideas (such as current events, finances, discharge planning, medical issues, relationships, e tc)? Yes. COMPREHENSION - STEP 2: Does the patient require help to understand questions or statements about basic needs or ideas (such as hunger, thirst, sleep, safety, daily schedule, room location, or discomfort) half or more of the t ezio? Yes. COMPREHENSION - STEP 3: Is the patient basically able to understand and respond appropriately and consistently? Yes. COMPREHENSION - SCORE: 2-MAX EXPRESSION EXPRESSION: TYPE: Both EXPRESSION - STEP 1: Does the patient require help from a person or device, or need extra time expressing complex and abst ract ideas (such as current events, finances, discharge planning, medical issues, relationships, etc) ? Yes. EXPRESSION - STEP 2: Does the patient require help to express basic necessities or ideas (such as hunger, thirst, sleep, s afety, daily schedule, room location, or discomfort) half or more of the time? No. EXPRESSION - STEP 3: How often does the patient need help to express directions and conversation about basic needs? 25-49% of the time EXPRESSION - SCORE: 3-MOD SOCIAL INTERACTION: SOCIAL INTERACTION - STEP 1: Does the patient require a helper to interact with others in social and therapeutic situations? No. SOCIAL INTERACTION - STEP 2: Does the patient need extra time in social situations, OR does s/he interact with staff, other patien ts, and family members ONLY in structured environments, OR does s/he require medication for social in teraction? Yes, patient requires medication for social interaction SOCIAL INTERACTION - SCORE: 6-CATHY PROBLEM SOLVING: Patient requires bed/chair alarms due to attempts to get up unassisted when helper is needed. PROBLEM SOLVING - STEP 1: How often do the bed/chair alarms go off? Occasionally - the alarms go off about 25% or less PROBLEM SOLVING - SCORE: 4-MIN MEMORY: MEMORY - STEP 1: How often do the bed/chair alarms go off? Occasionally - the alarms go off about 25% of the time or l ess MEMORY - SCORE: 4-MIN SIGNATURE PANEL: The following modified sections: Eating - Score, Grooming - Score, Bathing - Score, Dressing - Upper Body - Score, Dressing - Lower Body - Score, Toileting - Score, Bladder Management - Score, Bowel Man agement - Score, Transfers: Bed, Chair, Wheelchair - Score, Transfers: Toilet - Score, Transfers: Rupa wer - Score, Transfers: Tub - Score, Locomotion: Walk - Score, Locomotion: Wheelchair - Score, Compre hension - Score, Expression - Score, Social Interaction - Score, Problem Solving - Score, Memory - Sc ore were [electronically] signed by Divina Pena CNA on ThuSep 21 2018 03:11:21 T-0500 ([place] ylight Time)
--- NOTE | 2018-09-21 03:34 | PN ---
Date of Progress Note: 09/19/2018 Chief Complaint: End-stage renal disease, congestive heart failure with diastolic dysfunction, COPD exacerbation. Subjective: The patient is complaining of some cough. Denies wheezing and denies nausea, vomiting. Physical Examination: Lungs: Clear to auscultation bilaterally. Heart: S1, S2. Abdomen: Soft, benign. Extremities: Slight edema. Lab Work: Hemoglobin 9.1, WBC 5.5, platelet count is 265,000. Sodium 138, potassium 4.7, chloride 9 8, CO2 30, BUN 48, creatinine 5.79, calcium 8.8. Impression And Plan: 1.Congestive heart failure with diastolic dysfunction. Continue p.o. fluid restriction. The patien t is dialysis dependent. Dialysis will be scheduled for tomorrow. 2.The patient is complaining of constipation. The patient will have laxatives. 3.The patient has history of COPD. Chest x-ray will be done to evaluate for an evidence of pleural effusion and pneumonia. 4.Monitor for any evidence of fever and check blood cultures if temperature is greater than 100. 5.Anemia in CKD. Hemoglobin level is improving. Continue current treatment. 6.Renal osteodystrophy. Continue renal diet and binders. EB/MODL Voice ID: [id number] Report ID: [id number]
--- NOTE | 2018-09-21 03:43 | PN ---
Date of Progress Note: 09/20/2018 Chief Complaint: End-stage renal disease, on dialysis. Subjective: The patient is scheduled to have dialysis today to obtain metabolic clearance and ultraf iltration. The patient has peripheral edema, shortness of breath, and severe deconditioning. Lab wo rk was done and showed normal electrolytes. The patient previously was found to have severe hyperkal emia. Recently potassium level has been at normal range. The patient has history of malnutrition. Prealbumin level is diminished. The patient will have high protein intake. Congestive heart failure with diastolic dysfunction. The patient is to have dialysis with ultrafiltr ation. The patient is on p.o. fluid restriction. Review of Systems: Denies PND, orthopnea. Physical Examination: Lungs: Few crackles at bases. Heart: S1, S2. Abdomen: Soft, benign. Extremities: Edema in both legs. Laboratory Data: Sodium 138, potassium 4.7, chloride 98, CO2 30, BUN 48, creatinine 5.79, calcium 8. 8. Hemoglobin 9.1, WBC 5.5, platelet count 265. Impression And Plan: 1.End-stage renal disease. The patient will have dialysis today. The patient may benefit from leeann y dialysis to control volemia. Chest x-ray showed pleural effusion and stable opacities. The patien t has COPD exacerbation. Continue bronchodilators for COPD exacerbation. 2.Anemia. Hemoglobin is improving. 3.Renal osteodystrophy. Continue renal diet and binders. EB/MODL Voice ID: [id number] Report ID: [id number]
[2018-09-21] MEDS: ONDANSETRON 4 MG (ODT) TAB PO PRN (07:05)
[2018-09-21] MEDS: PANTOPRAZOLE 40MG TABLET PO SCH (07:05)
[2018-09-21] MEDS: HEPARIN 5000 UNIT/ML 1 ML VIAL SQ SCH (08:17)
[2018-09-21] MEDS: OCUVITE (VIT A,C & E/LUTEIN/MINERAL) TABLET PO SCH (08:19)
[2018-09-21] MEDS: POLYETHYL GLY 3350 17 GM/DOSE PO SCH (08:19)
[2018-09-21] MEDS: LISINOPRIL 10 MG TAB PO SCH (08:20)
[2018-09-21] MEDS: FERROUS SULFATE 325 MG TAB PO SCH (08:20)
[2018-09-21] MEDS: DULOXETINE 20 MG CAP PO SCH (08:22)
[2018-09-21] MEDS: CYANOCOBALAMIN 1,000 MCG TAB PO SCH (08:22)
[2018-09-21] MEDS: MAGNESIUM OXIDE 400 MG TAB PO SCH (08:22)
[2018-09-21] MEDS: CARVEDILOL 6.25 MG TAB PO SCH ×2 (08:22→19:40)
--- NOTE | 2018-09-21 13:07 | P.PN ---
Subjective Date of Service: 09/21/18 Chief Complaint: dysphagia, s/p CVA Subjective: No new changes (No choking / coughing with meals reported. But seems depressed with decreased mood. Needs some hope.) Review of Systems 10-point ROS is otherwise unremarkable General: Weakness, Malaise Physical Examination - Vital Signs Temperature: 96.8 F Blood Pressure: 129/69 Pulse: 61 Respirations: 18 Pulse Ox (%): 99 - Physical Exam General: Alert, In no apparent distress, Oriented x3, Cooperative HEENT: Atraumatic, Normocephalic, PERRLA, EOMI Neck: Supple Respiratory: Normal air movement Cardiovascular: Normal pulses Gastrointestinal: Soft and benign, No tenderness, No rebound, No guarding Neurological: Normal speech, Abnormal strength (decreased) Assessment And Plan - Current Problems (Diagnosis) (1) Dysphagia Current Visit: Yes Status: Acute (2) Acute CVA (cerebrovascular accident) Onset Date: 09/01/18 Current Visit: No Status: Acute (3) Encounter for rehabilitation Onset Date: 06/22/17 Current Visit: No Status: Acute (4) Debility Onset Date: 06/22/17 Current Visit: No Status: Chronic (5) ESRD on dialysis Onset Date: 10/12/17 Current Visit: No Status: Chronic - Plan REC: 1) continue speech therapy 2) physical therapy 3) increase vegetable / fiber intake
--- NOTE | 2018-09-21 13:10 | FAST ---
SHIFT START DATE/TIME: 09/21/2018 07:00 (CDT) SHIFT END DATE/TIME: 09/21/2018 19:00 (CDT) NAME JOSE ALEJANDRO ROSS DATE OF : 1930 DATE OF ADMISSION: 09/14/2018 18:33 (CDT) PHONE: AGE: 88 N# [id number] GENDER: Male ENCOUNTER PHYSICIAN: Dr. Deandre Solis M.D. 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 EATING: EATING - STEP 1: Does the patient require the assistance of a person or device, or need extra time when eating? Yes. EATING - STEP 2: Does the patient require the assistance of a helper? Yes. EATING - STEP 3: Does the patient perform half or more of the eating tasks? Yes. EATING - STEP 4: Does the patient need only supervision, cuing, coaxing OR help to apply an orthosis OR help to cut fo od, open containers, pour liquids, or butter bread? Yes. EATING - SCORE: 5-SUP GROOMING: Comb/brush hair Wash, rinse, and dry face Wash, rinse, and dry hands GROOMING - STEP 1: Does the patient require the assistance of a person or device, or need extra time when grooming? Yes. GROOMING - STEP 2: Does the patient require the assistance of a helper? No. The patient only requires an assistive devic e, OR takes more than reasonable time to groom, OR there is a concern for safety as the patient groom s GROOMING - SCORE: 6-CATHY BATHING: Activity did not occur on this shift BATHING - SCORE: 0-UNK DRESSING - UPPER BODY: Activity did not occur on this shift ARTICLES SCORE Total number of steps: 0 DRESSING - UPPER BODY - SCORE: 0-UNK DRESSING - LOWER BODY: Activity did not occur on this shift ARTICLES SCORE Total number of steps: 0 DRESSING - LOWER BODY - SCORE: 0-UNK TOILETING: TOILETING - STEP 1: Does the patient require the assistance of a person or device, or need extra time with toileting? Yes . TOILETING - STEP 2: Does the patient require the assistance of a helper? Yes. TOILETING - STEP 3: How much assistance does the patient require from the helper? Hands-on assistance from the helper TOILETING - STEP 4: Of the 3 tasks: 1) Adjusting clothing prior to use, 2) Cleansing of perineal area, 3) Adjusting clot dileep after use; How many tasks does the patient perform WITHOUT assistance of the helper? Two tasks TOILETING - SCORE: 3-MOD BLADDER MANAGEMENT: Patient is on renal dialysis or peritoneal dialysis and no voiding activity BLADDER MANAGEMENT - SCORE: 7-IND BOWEL MANAGEMENT: BOWEL MANAGEMENT - STEP 1: Does the patient control bowels completely and intentionally without equipment devices or medications AND is always continent? No. BOWEL MANAGEMENT - STEP 2: Does the patient require the assistance of a helper? No, patient requires and manages independently a n assistive device such as a bedpan, bedside commode, absorbent pad, incontinent device, or collectin g device BOWEL MANAGEMENT - SCORE: 6-CATHY TRANSFERS: BED, CHAIR, WHEELCHAIR: TRANSFERS: BED, CHAIR, WHEELCHAIR - STEP 1: Does the patient require assistance of a person or device, or need extra time with bed, chair, or whe elchair transfers? Yes. TRANSFERS: BED, CHAIR, WHEELCHAIR - STEP 2: Does the patient require the assistance of a helper? Yes. TRANSFERS: BED, CHAIR, WHEELCHAIR - STEP 3: How much assistance does the patient require from the helper? Steadying/guiding assistance TRANSFERS: BED, CHAIR, WHEELCHAIR - SCORE: 4-MIN TRANSFERS: TOILET: TRANSFERS: TOILET - STEP 1: Does the patient require the assistance of a person or device, or need extra time with toilet transfe rs? Yes. TRANSFERS: TOILET - STEP 2: Does the patient require the assistance of a helper? Yes. TRANSFERS: TOILET - STEP 3: How much assistance does the patient require from the helper? Patient performs half or more of the tr ansferring tasks TRANSFERS: TOILET - STEP 4: Does the patient need only incidental help such as contact guard or steadying during toilet transfer? Yes. TRANSFERS: TOILET - SCORE: 4-MIN TRANSFERS: SHOWER: Activity did not occur on this shift TRANSFERS: SHOWER - SCORE: 0-UNK TRANSFERS: TUB: Activity did not occur on this shift TRANSFERS: TUB - SCORE: 0-UNK LOCOMOTION: WALK: Activity did not occur on this shift LOCOMOTION: WALK - SCORE: 0-UNK LOCOMOTION: WHEELCHAIR: Activity did not occur on this shift LOCOMOTION: WHEELCHAIR - SCORE: 0-UNK COMPREHENSION: COMPREHENSION: TYPE: Both COMPREHENSION - STEP 1: Does the patient require help from a person or device, or need extra time to understand complex and a bstract ideas (such as current events, finances, discharge planning, medical issues, relationships, e tc)? Yes. COMPREHENSION - STEP 2: Does the patient require help to understand questions or statements about basic needs or ideas (such as hunger, thirst, sleep, safety, daily schedule, room location, or discomfort) half or more of the t ezio? No. COMPREHENSION - STEP 3: How often does the patient need help to understand directions and conversation about basic needs? 25% - 49% of the time COMPREHENSION - SCORE: 3-MOD EXPRESSION EXPRESSION: TYPE: Both EXPRESSION - STEP 1: Does the patient require help from a person or device, or need extra time expressing complex and abst ract ideas (such as current events, finances, discharge planning, medical issues, relationships, etc) ? Yes. EXPRESSION - STEP 2: Does the patient require help to express basic necessities or ideas (such as hunger, thirst, sleep, s afety, daily schedule, room location, or discomfort) half or more of the time? No. EXPRESSION - STEP 3: How often does the patient need help to express directions and conversation about basic needs? 10-24% of the time EXPRESSION - SCORE: 4-MIN SOCIAL INTERACTION: SOCIAL INTERACTION - STEP 1: Does the patient require a helper to interact with others in social and therapeutic situations? Yes. SOCIAL INTERACTION - STEP 2: Does the patient interact appropriately half or more of the time? Yes. SOCIAL INTERACTION - STEP 3: How often does the patient need help to interact appropriately? 10-24% of the time SOCIAL INTERACTION - SCORE: 4-MIN PROBLEM SOLVING: PROBLEM SOLVING - STEP 1: Does the patient need help from a person or device, or need extra time to solve complex problems such as managing a checking account or confronting interpersonal problems? Yes. PROBLEM SOLVING - STEP 2: Does the patient solve basic routine problems half or more of the time? Yes. PROBLEM SOLVING - STEP 3: How often does the patient need help to solve basic routine problems? 10%-24% of the time PROBLEM SOLVING - SCORE: 4-MIN MEMORY: MEMORY - STEP 1: Does the patient need help from a person or device, or need extra time to remember frequently encount ered people, daily routines, and executing requests? Yes. MEMORY - STEP 2: How often does the patient need help to remember frequently encountered people, daily routines, and e xecuting requests? 25% - 49% of the time MEMORY - SCORE: 3-MOD SIGNATURE PANEL: The following modified sections: Eating - Score, Grooming - Score, Bathing - Score, Dressing - Upper Body - Score, Dressing - Lower Body - Score, Toileting - Score, Bladder Management - Score, Bowel Man agement - Score, Transfers: Bed, Chair, Wheelchair - Score, Transfers: Toilet - Score, Transfers: Rupa wer - Score, Transfers: Tub - Score, Locomotion: Walk - Score, Locomotion: Wheelchair - Score, Compre hension - Score, Expression - Score, Social Interaction - Score, Problem Solving - Score, Memory - Sc ore were [electronically] signed by Jarad Chaney on ThuSep 21 2018 13:10:35 T-0500 (Central Daylight Time)
--- NOTE | 2018-09-21 14:41 | RAD REPORT ---
EXAM DESCRIPTION: RAD - Ankle Left 2 View - 09/21/2018 2:36 pm CLINICAL HISTORY: Left ankle pain FINDINGS: No fracture or dislocation is seen. A limited two view series was obtained Moderate calcaneal spur. Vascular calcifications seen
--- NOTE | 2018-09-21 14:42 | RAD REPORT ---
EXAM DESCRIPTION: Alis Hsu Left09/21/2018 2:36 pm CLINICAL HISTORY: Left leg pain FINDINGS: No fracture is seen. Vascular calcifications. Osteoporosis
--- NOTE | 2018-09-21 14:42 | RAD REPORT ---
EXAM DESCRIPTION: RAD - Foot Left 2 View - 09/21/2018 2:36 pm CLINICAL HISTORY: Left Foot pain FINDINGS: No fracture or dislocation is seen. Osteoporosis Limited two view series obtained. Vascular calcifications seen
--- NOTE | 2018-09-21 14:45 | RAD REPORT ---
EXAM DESCRIPTION: CT - Head Brain Wo Cont - 09/21/2018 2:18 pm CLINICAL HISTORY: CVA COMPARISON: August 2018 MRI TECHNIQUE: Computed axial tomography of the head was obtained. IV contrast was not requested. All CT scans are performed using dose optimization technique as appropriate and may include automated exposure control or mA/KV adjustment according to patient size. FINDINGS: An intracranial bleed is not seen . The ventricles are normal in caliber. No extra-axial fluid collection is noted. An approximately 4 centimeter low-density area within the left parietal lobe is compatible with a lat e subacute infarct. Mild to moderate low-density areas within periventricular, deep and subcortical white matter likely r epresent ischemic changes secondary to small vessel disease Fluid within the sinuses/ mastoids is not seen. IMPRESSION: 4 centimeter late subacute infarct left parietal lobe.
--- NOTE | 2018-09-21 15:29 | FAST ---
ENCOUNTER DATE AND TIME: 09/21/2018 08:00 (CDT) NAME JOSE ALEJANDRO ROSS DATE OF : 1930 DATE OF ADMISSION: 09/14/2018 18:33 (CDT) PHONE: AGE: 88 N# [id number] GENDER: Male ENCOUNTER PHYSICIAN: Dr. Deandre Solis M.D. 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 EATING: Activity did not occur on this shift EATING - SCORE: 0-UNK GROOMING: Activity did not occur on this shift GROOMING - SCORE: 0-UNK BATHING: Activity did not occur on this shift BATHING - SCORE: 0-UNK DRESSING - UPPER BODY: Activity did not occur on this shift Patient is not dressing in public clothing ARTICLES SCORE Total number of steps: 0 DRESSING - UPPER BODY - SCORE: 0-UNK DRESSING - LOWER BODY: Activity did not occur on this shift Patient is not dressing in public clothing ARTICLES SCORE Total number of steps: 0 DRESSING - LOWER BODY - SCORE: 0-UNK TOILETING: Activity did not occur on this shift TOILETING - SCORE: 0-UNK BLADDER MANAGEMENT: Activity did not occur on this shift BLADDER MANAGEMENT - SCORE: 7-IND BOWEL MANAGEMENT: Activity did not occur on this shift BOWEL MANAGEMENT - SCORE: 7-IND TRANSFERS: BED, CHAIR, WHEELCHAIR: TRANSFERS: BED, CHAIR, WHEELCHAIR - STEP 1: Does the patient require assistance of a person or device, or need extra time with bed, chair, or whe elchair transfers? Yes. TRANSFERS: BED, CHAIR, WHEELCHAIR - STEP 2: Does the patient require the assistance of a helper? Yes. TRANSFERS: BED, CHAIR, WHEELCHAIR - STEP 3: How much assistance does the patient require from the helper? Lifting of the patient TRANSFERS: BED, CHAIR, WHEELCHAIR - STEP 4: Does the helper lift the patient ONLY up? ONLY down? Up AND Down? Up AND Down. TRANSFERS: BED, CHAIR, WHEELCHAIR - SCORE: 2-MAX TRANSFERS: TOILET: Activity did not occur on this shift TRANSFERS: TOILET - SCORE: 0-UNK TRANSFERS: SHOWER: Activity did not occur on this shift TRANSFERS: SHOWER - SCORE: 0-UNK TRANSFERS: TUB: Activity did not occur on this shift TRANSFERS: TUB - SCORE: 0-UNK LOCOMOTION: WALK: Activity did not occur on this shift LOCOMOTION: WALK - SCORE: 0-UNK LOCOMOTION: WHEELCHAIR: Activity did not occur on this shift LOCOMOTION: WHEELCHAIR - SCORE: 0-UNK LOCOMOTION: STAIRS: Activity did not occur on this shift LOCOMOTION: STAIRS - SCORE: 0-UNK COMPREHENSION: COMPREHENSION - SCORE: 0-UNK EXPRESSION EXPRESSION - SCORE: 0-UNK SOCIAL INTERACTION: SOCIAL INTERACTION - SCORE: 0-UNK PROBLEM SOLVING: PROBLEM SOLVING - SCORE: 0-UNK MEMORY: MEMORY - SCORE: 0-UNK SIGNATURE PANEL: The following modified sections: Transfers: Bed, Chair, Wheelchair - Score, Transfers: Toilet - Score , Locomotion: Walk - Score, Locomotion: Wheelchair - Score, Locomotion: Stairs - Score were [electron ically] signed by Mert Ferguson PTA on ThuSep 21 2018 15:28:18 GMT-0500 (Central Daylight Time)
[2018-09-21] MEDS: HYDROCODONE/APAP 5/325 MG TAB PO PRN (16:33)
--- NOTE | 2018-09-21 18:54 | R.PN ---
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 SUBJECTIVE: Pt denied any Shortness of Breath. Pt denied any depression. Hgb 9.1, creatinine 5.79, prealbumin 11.8. Barium swallow test shows no aspiration but significant es ophageal stasis and reflux. Required max assistance for transfers today. Static standing for only 1 minute with max assistance. Repeat head CT shows no unexpected findings. Evolving 4 cm late subacute left parietal lobe ischemic stroke. X-rays of left ankle and foot shows no acute changes but vascular calcifications and osteopor osis. VITAL SIGNS Temperature: 97.5 F SBP/DBP: 129/69 Pulse: 61 Resp: 16 MEDICATION ALLERGIES: DOXYCYCLINE Iodine ENVIRONMENTAL ALLERGIES: None Known - Substance Allergies None Known - Other Allergies None Known NURSING: - Shower allowing shower - Bladder care per protocol - Skin care per protocol PRECAUTIONS: - Fall Precaution Bed and chair alarm ACTIVITIES OOB only with supervision THERAPIES: - Occupational Therapy Evaluate and Treat. Visual Perceptual Training. Cognitive Retraining. - Speech Therapy Cognitive Training. Memory Strategies. Speech Intelligibility Training. Expressive Language Skills. R eceptive Language Skills. - Physical Therapy Evaluate and Treat. PHYSICAL EXAM - Gen Alert and awake Lying in bed No apparent distress Oriented to: person, time, and place - Skin No breakdown No abnormalities - Eyes No abnormalities - ENMT No abnormalities - Neck No abnormalities - CVS RRR - Chest Clear - Abd + bowel sounds - GI nondistended Deferred - No abnormalities - Ext No significant edema - MSK 4+/5 weakness in left upper and lower extremity - Neuro 4/5 strength right upper and lower extremities. Mild expressive and receptive aphasia. - Psych No abnormalities ASSESSMENT: Pt. is a 88 yo Right-handed white male.On 09/01/2018 Pt. presented to [facility] with sudden onset of right-side weakness.On 09/01/2018 he was admitted to [facility] with diagnosis Left MCA.His impairment category is Stroke 01 - Right Body (Left Brain) (01.2 ).Pre-morbidly, Pt. was independent/mod-I in Self-Care, Sphincter Control, Transfers Control, Locomot ion, Communication, and Social Cognition; and he had good Sphincter Control.Currently, he has deficit s of Transfers Control, Locomotion, Communication, Social Cognition, Endurance, Balance, Safety Aware ness, and Self-Care.Pt. is now referred to [facility] for acute in-patient giancarlo abilitation in order to maximize patient's functional independence in activities of daily living, str ength, ROM, and mobility.- Rehab Goal Patient has realistic goal of being discharged at assistance level 6-Princess to reside at Home with Fam ming/Relatives. MDM/PLAN: - Physical Therapy Gait dysfunction - to improve, our physical therapists will perform initial evaluation of pt's statu s upon admission and devise an individualized program for Gait Training, and Wheel Chair mobility Inability to transfer - to improve, our physical therapists will perform initial evaluation of pt's status upon admission and devise an individualized program for Bed mobility Need for home safety evaluation - to improve, our physical therapists will perform initial evaluatio n of pt's status upon admission and devise an individualized program for Home Evaluation Need in caregiver upon discharge - to improve, our physical therapists will perform initial evaluati on of pt's status upon admission and devise an individualized program for Caregiver Training Edema - to improve, our physical therapists will perform initial evaluation of pt's status upon admi ssion and devise an individualized program for Elevation Training, and Lymphedema Therapy New precaution - to improve, our physical therapists will perform initial evaluation of pt's status upon admission and devise an individualized program for Patient precaution education Poor balance - to improve, our physical therapists will perform initial evaluation of pt's status up on admission and devise an individualized program for Balance Training Poor endurance - to improve, our physical therapists will perform initial evaluation of pt's status upon admission and devise an individualized program for Endurance Training Weakness - to improve, our physical therapists will perform initial evaluation of pt's status upon a dmission and devise an individualized program for Aquatic Therapy, Neuromuscular Reeducation, and Str engthening Achieving independence - to improve, our physical therapists will perform initial evaluation of pt's status upon admission and devise an individualized program for Community Reintegration Activities - Occupational Therapy ADL deficits - to improve, our occupation therapists will perform initial evaluation of pt's status upon admission and devise an individualized program for Bathing, Bed mobility, Community Reintegratio n, Cooking, Dressing, Eating, Fine Motor Skills, Grooming, Homemaking, Kitchen Mobility, Laundry, Pat ient Education, Safety Awareness, Splinting - Positioning, Transfers(Toilet, Tub, Shower), and Wheel Chair Management Cognitive deficits - to improve, our occupation therapists will perform initial evaluation of pt's s tatus upon admission and devise an individualized program for Cognition - orientation Need for early breastfeeding care specialist - to improve, our occupation therapists will perform initial evaluation of pt's status upon admission and devise an individualized program for Caregiver Training Weakness - to improve, our occupation therapists will perform initial evaluation of pt's status upon admission and devise an individualized program for Aquatic Therapy, Balance, Endurance, UE ROM, and UE strengthening - Diet Type Continue Regular - Diet - Liquid Texture Continue Regular - Tube Feed Continue N/A - Bladder care per protocol - Weight Bearing Precaution WBAT right LE - Fall Precaution Bed and chair alarm - Skin care per protocol - Diet - Solid Texture Continue Regular - Shower allowing shower for Dementia, TBI, Stroke, or others FUNCTIONAL STATUS: UPDATED AT WEEKLY TEAM CONFERENCE - Bladder Same accident frequency: 7-Ind - No accidents in the past 7 days - Bowel Same accident frequency: 7-Ind - No accidents in the past 7 days - Walking Same score based on distance walked: 1(<=50ft) - Wheelchair Same score based on distance traveled: 0(N/A) FUNCTIONAL STATUS: - Self-Care A. Eating Pricness B. Grooming sup C. Bathing sup D. Dressing - Upper sup E. Dressing - Lower sup F. Toileting sup - Sphincter Control G: Bladder control Ind H: Bowel control Ind - Transfers Control I. Bed/Chair/Wheelchair maxA J. Toilet maxA K. Tub/Shower ADNO - Locomotion L. Walk/Wheelchair (C) maxA L. Walk/Wheelchair (W) maxA M. Stairs ADNO - Communication N. Comprehension (B) Gale O. Expression (B) Gale - Social Cognition P. Social Interaction Gale Q. Problem Solving modA R. Memory modA - Endurance Fair - Balance Fair - Safety Awareness Fair CURRENT FUNC. DEFICITS: Transfers Control, Locomotion, Communication, Social Cognition, Endurance, Balance, Safety Awareness, and Self-Care SIGNATURE PANEL: (CDT)
[2018-09-21] MEDS: ATORVASTATIN 20 MG TAB PO SCH (19:37)
[2018-09-21] MEDS: DOCUSATE NA/SENNA CONC 1 TAB PO SCH (19:37)
[2018-09-21] MEDS: NEPRO SHAKE 237 ML CAN PO SCH (19:38)
[2018-09-21] MEDS: GABAPENTIN 100 MG CAP PO SCH (19:38)
[2018-09-21] MEDS: MELATONIN 3 MG TABLET PO SCH (19:39)
[2018-09-21] MEDS: MEGESTROL 400 MG/10 ML UCUP PO SCH (19:42)
--- NOTE | 2018-09-22 03:32 | FAST ---
SHIFT START DATE/TIME: 09/21/2018 19:00 (CDT) SHIFT END DATE/TIME: 09/22/2018 07:00 (CDT) NAME JOSE ALEJNADRO ROSS DATE OF : 1930 DATE OF ADMISSION: 09/14/2018 18:33 (CDT) PHONE: AGE: 88 SSN# [id number] GENDER: Male ENCOUNTER PHYSICIAN: Dr. Deandre Solis M.D. 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 EATING: Activity did not occur on this shift EATING - SCORE: 0-UNK GROOMING: Activity did not occur on this shift GROOMING - SCORE: 0-UNK BATHING: Activity did not occur on this shift BATHING - SCORE: 0-UNK DRESSING - UPPER BODY: Activity did not occur on this shift ARTICLES SCORE Total number of steps: 0 DRESSING - UPPER BODY - SCORE: 0-UNK DRESSING - LOWER BODY: Activity did not occur on this shift ARTICLES SCORE Total number of steps: 0 DRESSING - LOWER BODY - SCORE: 0-UNK TOILETING: TOILETING - STEP 1: Does the patient require the assistance of a person or device, or need extra time with toileting? Yes . TOILETING - STEP 2: Does the patient require the assistance of a helper? Yes. TOILETING - STEP 3: How much assistance does the patient require from the helper? Hands-on assistance from the helper TOILETING - STEP 4: Of the 3 tasks: 1) Adjusting clothing prior to use, 2) Cleansing of perineal area, 3) Adjusting clot dileep after use; How many tasks does the patient perform WITHOUT assistance of the helper? No tasks; h candida performs all three tasks TOILETING - SCORE: 1-DEP BLADDER MANAGEMENT: Patient is on renal dialysis or peritoneal dialysis and no voiding activity BLADDER MANAGEMENT - SCORE: 7-IND BOWEL MANAGEMENT: Activity did not occur on this shift BOWEL MANAGEMENT - SCORE: 7-IND TRANSFERS: BED, CHAIR, WHEELCHAIR: Patient requires more than one helper and/or the use of a mechanical lift is utilized TRANSFERS: BED, CHAIR, WHEELCHAIR - SCORE: 1-DEP TRANSFERS: TOILET: Patient requires more than one helper and/or the use of a mechanical lift is utilized TRANSFERS: TOILET - SCORE: 1-DEP TRANSFERS: SHOWER: Activity did not occur on this shift TRANSFERS: SHOWER - SCORE: 0-UNK TRANSFERS: TUB: Activity did not occur on this shift TRANSFERS: TUB - SCORE: 0-UNK LOCOMOTION: WALK: Activity did not occur on this shift LOCOMOTION: WALK - SCORE: 0-UNK LOCOMOTION: WHEELCHAIR: Activity did not occur on this shift LOCOMOTION: WHEELCHAIR - SCORE: 0-UNK COMPREHENSION: COMPREHENSION: TYPE: Both COMPREHENSION - STEP 1: Does the patient require help from a person or device, or need extra time to understand complex and a bstract ideas (such as current events, finances, discharge planning, medical issues, relationships, e tc)? Yes. COMPREHENSION - STEP 2: Does the patient require help to understand questions or statements about basic needs or ideas (such as hunger, thirst, sleep, safety, daily schedule, room location, or discomfort) half or more of the t ezio? No. COMPREHENSION - STEP 3: How often does the patient need help to understand directions and conversation about basic needs? 25% - 49% of the time COMPREHENSION - SCORE: 3-MOD EXPRESSION EXPRESSION: TYPE: Both EXPRESSION - STEP 1: Does the patient require help from a person or device, or need extra time expressing complex and abst ract ideas (such as current events, finances, discharge planning, medical issues, relationships, etc) ? Yes. EXPRESSION - STEP 2: Does the patient require help to express basic necessities or ideas (such as hunger, thirst, sleep, s afety, daily schedule, room location, or discomfort) half or more of the time? No. EXPRESSION - STEP 3: How often does the patient need help to express directions and conversation about basic needs? 25-49% of the time EXPRESSION - SCORE: 3-MOD SOCIAL INTERACTION: SOCIAL INTERACTION - STEP 1: Does the patient require a helper to interact with others in social and therapeutic situations? No. SOCIAL INTERACTION - STEP 2: Does the patient need extra time in social situations, OR does s/he interact with staff, other patien ts, and family members ONLY in structured environments, OR does s/he require medication for social in teraction? Yes, patient requires medication for social interaction SOCIAL INTERACTION - SCORE: 6-CATHY PROBLEM SOLVING: Patient requires bed/chair alarms due to attempts to get up unassisted when helper is needed. PROBLEM SOLVING - STEP 1: How often do the bed/chair alarms go off? Occasionally - the alarms go off about 25% or less PROBLEM SOLVING - SCORE: 4-MIN MEMORY: MEMORY - STEP 1: How often do the bed/chair alarms go off? Occasionally - the alarms go off about 25% of the time or l ess MEMORY - SCORE: 4-MIN SIGNATURE PANEL: The following modified sections: Eating - Score, Grooming - Score, Bathing - Score, Dressing - Upper Body - Score, Dressing - Lower Body - Score, Toileting - Score, Bladder Management - Score, Bowel Man agement - Score, Transfers: Bed, Chair, Wheelchair - Score, Transfers: Toilet - Score, Transfers: Rupa wer - Score, Transfers: Tub - Score, Locomotion: Walk - Score, Locomotion: Wheelchair - Score, Compre hension - Score, Expression - Score, Social Interaction - Score, Problem Solving - Score, Memory - Sc ore were [electronically] signed by Divina Pena CNA on ThuSep 22 2018 03:31:58 T-0500 [facility]
[2018-09-22] MEDS: PANTOPRAZOLE 40MG TABLET PO SCH (06:47)
[2018-09-22] MEDS: CARVEDILOL 6.25 MG TAB PO SCH (08:00)
[2018-09-22] MEDS: LISINOPRIL 10 MG TAB PO SCH (08:00)
[2018-09-22] MEDS: POLYETHYL GLY 3350 17 GM/DOSE PO SCH (08:31)
[2018-09-22] MEDS: CYANOCOBALAMIN 1,000 MCG TAB PO SCH (08:32)
[2018-09-22] MEDS: DULOXETINE 20 MG CAP PO SCH (08:32)
[2018-09-22] MEDS: MAGNESIUM OXIDE 400 MG TAB PO SCH (08:33)
[2018-09-22] MEDS: OCUVITE (VIT A,C & E/LUTEIN/MINERAL) TABLET PO SCH (08:33)
[2018-09-22] MEDS: FERROUS SULFATE 325 MG TAB PO SCH (08:33)
[2018-09-22] MEDS: HEPARIN 5000 UNIT/ML 1 ML VIAL SQ SCH (08:59)
--- NOTE | 2018-09-22 15:01 | FAST ---
ENCOUNTER DATE AND TIME: 09/22/2018 08:00 (CDT) NAME JOSE ALEJANDRO ROSS DATE OF : 1930 DATE OF ADMISSION: 09/14/2018 18:33 (CDT) PHONE: AGE: 88 N# [id number] GENDER: Male ENCOUNTER PHYSICIAN: Dr. Deandre Solis M.D. 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 EATING: Activity did not occur on this shift EATING - SCORE: 0-UNK GROOMING: Activity did not occur on this shift GROOMING - SCORE: 0-UNK BATHING: Activity did not occur on this shift BATHING - SCORE: 0-UNK DRESSING - UPPER BODY: Activity did not occur on this shift Patient is not dressing in public clothing ARTICLES SCORE Total number of steps: 0 DRESSING - UPPER BODY - SCORE: 0-UNK DRESSING - LOWER BODY: Activity did not occur on this shift Patient is not dressing in public clothing ARTICLES SCORE Total number of steps: 0 DRESSING - LOWER BODY - SCORE: 0-UNK TOILETING: Activity did not occur on this shift TOILETING - SCORE: 0-UNK BLADDER MANAGEMENT: Activity did not occur on this shift BLADDER MANAGEMENT - SCORE: 7-IND BOWEL MANAGEMENT: Activity did not occur on this shift BOWEL MANAGEMENT - SCORE: 7-IND TRANSFERS: BED, CHAIR, WHEELCHAIR: TRANSFERS: BED, CHAIR, WHEELCHAIR - STEP 1: Does the patient require assistance of a person or device, or need extra time with bed, chair, or whe elchair transfers? Yes. TRANSFERS: BED, CHAIR, WHEELCHAIR - STEP 2: Does the patient require the assistance of a helper? Yes. TRANSFERS: BED, CHAIR, WHEELCHAIR - STEP 3: How much assistance does the patient require from the helper? Lifting of the patient TRANSFERS: BED, CHAIR, WHEELCHAIR - STEP 4: Does the helper lift the patient ONLY up? ONLY down? Up AND Down? ONLY up. TRANSFERS: BED, CHAIR, WHEELCHAIR - SCORE: 3-MOD TRANSFERS: TOILET: Activity did not occur on this shift TRANSFERS: TOILET - SCORE: 0-UNK TRANSFERS: SHOWER: Activity did not occur on this shift TRANSFERS: SHOWER - SCORE: 0-UNK TRANSFERS: TUB: Activity did not occur on this shift TRANSFERS: TUB - SCORE: 0-UNK LOCOMOTION: WALK: Patient walks less than 50 feet LOCOMOTION: WALK - SCORE: 1-DEP LOCOMOTION: WHEELCHAIR: Activity did not occur on this shift LOCOMOTION: WHEELCHAIR - SCORE: 0-UNK LOCOMOTION: STAIRS: Activity did not occur on this shift LOCOMOTION: STAIRS - SCORE: 0-UNK COMPREHENSION: COMPREHENSION - SCORE: 0-UNK EXPRESSION EXPRESSION - SCORE: 0-UNK SOCIAL INTERACTION: SOCIAL INTERACTION - SCORE: 0-UNK PROBLEM SOLVING: PROBLEM SOLVING - SCORE: 0-UNK MEMORY: MEMORY - SCORE: 0-UNK SIGNATURE PANEL: The following modified sections: Transfers: Bed, Chair, Wheelchair - Score, Transfers: Toilet - Score , Locomotion: Walk - Score, Locomotion: Wheelchair - Score, Locomotion: Stairs - Score were [electron ically] signed by Shorty Fernandez PT on ThuSep 22 2018 15:00:53 GMT-0500 (Central Daylight Time)
--- NOTE | 2018-09-22 17:39 | PN ---
Date of Progress Note: 09/22/2018 Subjective: The patient still feeling weak, losing energy, not participating much in physical therap y. Physical Examination: General: When I saw the patient, the patient is sitting in the chair. Vital Signs: Blood pressure 111/55, pulse of 62, afebrile. Chest: Faint crackles in the base. Heart: S1 and S2, regular. Systolic murmur. Abdomen: Soft and nontender. Extremities: No edema. Laboratory Data: H and H 9.1/29.2. Sodium 138, potassium 4.7, bicarb 30, BUN 48, creatinine 5.7, ca lcium 8.8. Current Medications: The patient on include: 1.Epogen. 2.Oral iron. 3.Atorvastatin. 4.Carvedilol 6.25. 5.Lisinopril. 6.Atorvastatin. 7.Gabapentin. 8.Meclizine. 9.Simethicone. 10.Pantoprazole. 11.Multivitamin. Assessment And Plan: 1.End-stage renal disease, stable, looked to me more normal volume. I am going to continue the dial ysis Thursday, Thursday, and Thursday. The patient due for dialysis today. I going to go ahead and dec rease his blood flow to 300 and we will follow up the patient. We are not going to challenge the pat ient. 2.Hypertension. Currently blood pressure on the lower side. I am going to go ahead and decrease ca rvedilol to 3.125 and discontinue lisinopril. 3.Fatigue, cerebrovascular accident. Continue PT/OT. Hopefully by decreasing the carvedilol and di scontinue lisinopril, we will see the response of the patient. I going to go ahead and send for CK t o evaluate if there is any myopathy. I am going to go ahead and send for vitamin D level for the pat ient. CHRISTOPHER/MODL Voice ID: [id number] Report ID: [id number]
--- NOTE | 2018-09-22 17:58 | R.PN ---
ENCOUNTER DATE AND TIME: 09/22/2018 17:53 (CDT) NAME JOSE ALEJANDRO ROSS DATE OF : 1930 DATE OF ADMISSION: 09/14/2018 18:33 (CDT) Left MCACHIEF COMPLAINT: Left MCA stroke with aphasia and right sided weakness. SUBJECTIVE: Pt denied any Shortness of Breath. Pt denied any depression. Hgb 9.1, creatinine 5.79, prealbumin 11.8. Barium swallow test shows no aspiration but significant es ophageal stasis and reflux. Ambulated 68' with minimum assistance using a rolling walker. Quickly fatigues and his knee bend, req uiring frequent cueing to walk upright. Repeat head CT shows no unexpected findings. Evolving 4 cm late subacute left parietal lobe ischemic stroke. X-rays of left ankle and foot shows no acute changes but vascular calcifications and osteopor osis. VITAL SIGNS Temperature: 97.5 F SBP/DBP: 111/55 Pulse: 62 Resp: 16 MEDICATION ALLERGIES: DOXYCYCLINE Iodine ENVIRONMENTAL ALLERGIES: None Known - Substance Allergies None Known - Other Allergies None Known NURSING: - Shower allowing shower - Bladder care per protocol - Skin care per protocol PRECAUTIONS: - Fall Precaution Bed and chair alarm ACTIVITIES OOB only with supervision THERAPIES: - Occupational Therapy Evaluate and Treat. Visual Perceptual Training. Cognitive Retraining. - Speech Therapy Cognitive Training. Memory Strategies. Speech Intelligibility Training. Expressive Language Skills. R eceptive Language Skills. - Physical Therapy Evaluate and Treat. PHYSICAL EXAM - Gen Alert and awake Lying in bed No apparent distress Oriented to: person, time, and place - Skin No breakdown No abnormalities - Eyes No abnormalities - ENMT No abnormalities - Neck No abnormalities - CVS RRR - Chest Clear - Abd + bowel sounds - GI nondistended Deferred - No abnormalities - Ext No significant edema - MSK 4+/5 weakness in left upper and lower extremity - Neuro 4/5 strength right upper and lower extremities. Mild expressive and receptive aphasia. - Psych No abnormalities ASSESSMENT: Pt. is a 88 yo Right-handed white male.On 09/01/2018 Pt. presented to [facility] with sudden onset of right-side weakness.On 09/01/2018 he was admitted to [facility] with diagnosis Left MCA.His impairment category is Stroke 01 - Right Body (Left Brain) (01.2 ).Pre-morbidly, Pt. was independent/mod-I in Self-Care, Sphincter Control, Transfers Control, Locomot ion, Communication, and Social Cognition; and he had good Sphincter Control.Currently, he has deficit s of Transfers Control, Locomotion, Communication, Social Cognition, Endurance, Balance, Safety Aware ness, and Self-Care.Pt. is now referred to [facility] for acute in-patient giancarlo abilitation in order to maximize patient's functional independence in activities of daily living, str ength, ROM, and mobility.- Rehab Goal Patient has realistic goal of being discharged at assistance level 6-Princess to reside at Home with Fam ming/Relatives. MDM/PLAN: - Physical Therapy Gait dysfunction - to improve, our physical therapists will perform initial evaluation of pt's statu s upon admission and devise an individualized program for Gait Training, and Wheel Chair mobility Inability to transfer - to improve, our physical therapists will perform initial evaluation of pt's status upon admission and devise an individualized program for Bed mobility Need for home safety evaluation - to improve, our physical therapists will perform initial evaluatio n of pt's status upon admission and devise an individualized program for Home Evaluation Need in caregiver upon discharge - to improve, our physical therapists will perform initial evaluati on of pt's status upon admission and devise an individualized program for Caregiver Training Edema - to improve, our physical therapists will perform initial evaluation of pt's status upon admi ssion and devise an individualized program for Elevation Training, and Lymphedema Therapy New precaution - to improve, our physical therapists will perform initial evaluation of pt's status upon admission and devise an individualized program for Patient precaution education Poor balance - to improve, our physical therapists will perform initial evaluation of pt's status up on admission and devise an individualized program for Balance Training Poor endurance - to improve, our physical therapists will perform initial evaluation of pt's status upon admission and devise an individualized program for Endurance Training Weakness - to improve, our physical therapists will perform initial evaluation of pt's status upon a dmission and devise an individualized program for Aquatic Therapy, Neuromuscular Reeducation, and Str engthening Achieving independence - to improve, our physical therapists will perform initial evaluation of pt's status upon admission and devise an individualized program for Community Reintegration Activities - Occupational Therapy ADL deficits - to improve, our occupation therapists will perform initial evaluation of pt's status upon admission and devise an individualized program for Bathing, Bed mobility, Community Reintegratio n, Cooking, Dressing, Eating, Fine Motor Skills, Grooming, Homemaking, Kitchen Mobility, Laundry, Pat ient Education, Safety Awareness, Splinting - Positioning, Transfers(Toilet, Tub, Shower), and Wheel Chair Management Cognitive deficits - to improve, our occupation therapists will perform initial evaluation of pt's s tatus upon admission and devise an individualized program for Cognition - orientation Need for healthcare or medical - to improve, our occupation therapists will perform initial evaluation of pt's status upon admission and devise an individualized program for Caregiver Training Weakness - to improve, our occupation therapists will perform initial evaluation of pt's status upon admission and devise an individualized program for Aquatic Therapy, Balance, Endurance, UE ROM, and UE strengthening - Diet Type Continue Regular - Diet - Liquid Texture Continue Regular - Tube Feed Continue N/A - Bladder care per protocol - Weight Bearing Precaution WBAT right LE - Fall Precaution Bed and chair alarm - Skin care per protocol - Diet - Solid Texture Continue Regular - Shower allowing shower for Dementia, TBI, Stroke, or others FUNCTIONAL STATUS: UPDATED AT WEEKLY TEAM CONFERENCE - Bladder Same accident frequency: 7-Ind - No accidents in the past 7 days - Bowel Same accident frequency: 7-Ind - No accidents in the past 7 days - Walking Same score based on distance walked: 1(<=50ft) - Wheelchair Same score based on distance traveled: 0(N/A) FUNCTIONAL STATUS: - Self-Care A. Eating Princess B. Grooming sup C. Bathing sup D. Dressing - Upper sup E. Dressing - Lower sup F. Toileting sup - Sphincter Control G: Bladder control Ind H: Bowel control Ind - Transfers Control I. Bed/Chair/Wheelchair maxA J. Toilet maxA K. Tub/Shower ADNO - Locomotion L. Walk/Wheelchair (C) maxA L. Walk/Wheelchair (W) maxA M. Stairs ADNO - Communication N. Comprehension (B) Gale O. Expression (B) Gale - Social Cognition P. Social Interaction Gale Q. Problem Solving modA R. Memory modA - Endurance Fair - Balance Fair - Safety Awareness Fair CURRENT FUNC. DEFICITS: Transfers Control, Locomotion, Communication, Social Cognition, Endurance, Balance, Safety Awareness, and Self-Care SIGNATURE PANEL: (CDT)
[2018-09-22] MEDS: CARVEDILOL 3.125 MG TAB PO SCH (20:00)
[2018-09-22] MEDS: EPOETIN ALFA 10,000 UNIT/ML VIAL IV SCH (20:28)
[2018-09-22] MEDS: GABAPENTIN 100 MG CAP PO SCH (21:00)
[2018-09-22] MEDS: MELATONIN 3 MG TABLET PO SCH (21:00)
[2018-09-22] MEDS: ATORVASTATIN 20 MG TAB PO SCH (21:00)
[2018-09-22] MEDS: MEGESTROL 400 MG/10 ML UCUP PO SCH (21:00)
[2018-09-22] MEDS: DOCUSATE NA/SENNA CONC 1 TAB PO SCH (23:34)
[2018-09-22] MEDS: NEPRO SHAKE 237 ML CAN PO SCH (23:35)
[2018-09-23] MEDS: MELATONIN 3 MG TABLET PO SCH ×2 (00:12→20:47)
--- NOTE | 2018-09-23 01:36 | FAST ---
SHIFT START DATE/TIME: 09/22/2018 19:00 (CDT) SHIFT END DATE/TIME: 09/23/2018 07:00 (CDT) NAME JOSE ALEJANDRO ROSS DATE OF : 1930 DATE OF ADMISSION: 09/14/2018 18:33 (CDT) PHONE: AGE: 88 SSN# [id number] GENDER: Male ENCOUNTER PHYSICIAN: Dr. Deandre Solis M.D. 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 EATING: Activity did not occur on this shift EATING - SCORE: 0-UNK GROOMING: Activity did not occur on this shift GROOMING - SCORE: 0-UNK BATHING: Activity did not occur on this shift BATHING - SCORE: 0-UNK DRESSING - UPPER BODY: Patient is not dressing in public clothing ARTICLES SCORE Total number of steps: 0 DRESSING - UPPER BODY - SCORE: 0-UNK DRESSING - LOWER BODY: Patient is not dressing in public clothing ARTICLES SCORE Total number of steps: 0 DRESSING - LOWER BODY - SCORE: 0-UNK TOILETING: Activity did not occur on this shift TOILETING - SCORE: 0-UNK BLADDER MANAGEMENT: Patient is on renal dialysis or peritoneal dialysis and no voiding activity BLADDER MANAGEMENT - SCORE: 7-IND BOWEL MANAGEMENT: BOWEL MANAGEMENT - STEP 1: Does the patient control bowels completely and intentionally without equipment devices or medications AND is always continent? No. BOWEL MANAGEMENT - STEP 2: Does the patient require the assistance of a helper? No, patient requires medication for control such as stool softeners, suppositories, laxatives, enemas, or OTC medications BOWEL MANAGEMENT - SCORE: 6-CATHY TRANSFERS: BED, CHAIR, WHEELCHAIR: Activity did not occur on this shift TRANSFERS: BED, CHAIR, WHEELCHAIR - SCORE: 0-UNK TRANSFERS: TOILET: Activity did not occur on this shift TRANSFERS: TOILET - SCORE: 0-UNK TRANSFERS: SHOWER: Activity did not occur on this shift TRANSFERS: SHOWER - SCORE: 0-UNK TRANSFERS: TUB: Activity did not occur on this shift TRANSFERS: TUB - SCORE: 0-UNK LOCOMOTION: WALK: Activity did not occur on this shift LOCOMOTION: WALK - SCORE: 0-UNK LOCOMOTION: WHEELCHAIR: Activity did not occur on this shift LOCOMOTION: WHEELCHAIR - SCORE: 0-UNK COMPREHENSION: COMPREHENSION: TYPE: Both COMPREHENSION - STEP 1: Does the patient require help from a person or device, or need extra time to understand complex and a bstract ideas (such as current events, finances, discharge planning, medical issues, relationships, e tc)? Yes. COMPREHENSION - STEP 2: Does the patient require help to understand questions or statements about basic needs or ideas (such as hunger, thirst, sleep, safety, daily schedule, room location, or discomfort) half or more of the t ezio? No. COMPREHENSION - STEP 3: How often does the patient need help to understand directions and conversation about basic needs? 25% - 49% of the time COMPREHENSION - SCORE: 3-MOD EXPRESSION EXPRESSION: TYPE: Both EXPRESSION - STEP 1: Does the patient require help from a person or device, or need extra time expressing complex and abst ract ideas (such as current events, finances, discharge planning, medical issues, relationships, etc) ? Yes. EXPRESSION - STEP 2: Does the patient require help to express basic necessities or ideas (such as hunger, thirst, sleep, s afety, daily schedule, room location, or discomfort) half or more of the time? No. EXPRESSION - STEP 3: How often does the patient need help to express directions and conversation about basic needs? 25-49% of the time EXPRESSION - SCORE: 3-MOD SOCIAL INTERACTION: SOCIAL INTERACTION - STEP 1: Does the patient require a helper to interact with others in social and therapeutic situations? No. SOCIAL INTERACTION - STEP 2: Does the patient need extra time in social situations, OR does s/he interact with staff, other patien ts, and family members ONLY in structured environments, OR does s/he require medication for social in teraction? Yes, patient requires medication for social interaction SOCIAL INTERACTION - SCORE: 6-CATHY PROBLEM SOLVING: PROBLEM SOLVING - STEP 1: Does the patient need help from a person or device, or need extra time to solve complex problems such as managing a checking account or confronting interpersonal problems? Yes. PROBLEM SOLVING - STEP 2: Does the patient solve basic routine problems half or more of the time? Yes. PROBLEM SOLVING - STEP 3: How often does the patient need help to solve basic routine problems? 25%-49% of the time PROBLEM SOLVING - SCORE: 3-MOD MEMORY: MEMORY - STEP 1: Does the patient need help from a person or device, or need extra time to remember frequently encount ered people, daily routines, and executing requests? Yes. MEMORY - STEP 2: How often does the patient need help to remember frequently encountered people, daily routines, and e xecuting requests? 25% - 49% of the time MEMORY - SCORE: 3-MOD SIGNATURE PANEL: The following modified sections: Eating - Score, Grooming - Score, Dressing - Upper Body - Score, Kyrie ssing - Lower Body - Score, Toileting - Score, Bladder Management - Score, Bowel Management - Score, Transfers: Bed, Chair, Wheelchair - Score, Transfers: Toilet - Score, Transfers: Shower - Score, [place] sfers: Tub - Score, Locomotion: Walk - Score, Locomotion: Wheelchair - Score, Comprehension - Score, Expression - Score, Social Interaction - Score, Problem Solving - Score, Memory - Score were [electro nically] signed by Carmen Caal CNA on ThuSep 23 2018 01:35:24 GMT-0500 (Central Daylight Time)
[2018-09-23] MEDS: PANTOPRAZOLE 40MG TABLET PO SCH (06:29)
[2018-09-23 06:43] LABS: Absolute Lymphocytes (CBC) 0.7 K/uL (0.7-4.9); Absolute Monocytes 0.6 K/uL (0.1-1.3); Absolute Neutrophil 3.4 K/uL (1.8-8.0); Basophils % 0.8 % (0-1.3); Eosinophils % 2.7 % (0-4.4); Hematocrit 29.1 % (39.6-49.0); Lymphocytes % 15.1 % (15.3-44.8); MPV 6.7 fL (7.6-11.3); Monocytes % 12.6 % (3.3-12.3); RBC Red Blood Cell Count 3.12 M/uL (4.33-5.43)
[2018-09-23 07:04] LABS: Albumin 2.2 g/dL (3.4-5.0); CKMB Creatine Kinase MB 1.5 ng/mL (0.3-3.6); Potassium 3.9 mmol/L (3.5-5.1); Prealbumin 9.6 mg/dL (20-40)
[2018-09-23] MEDS: CYANOCOBALAMIN 1,000 MCG TAB PO SCH (08:00)
[2018-09-23] MEDS: CARVEDILOL 3.125 MG TAB PO SCH ×2 (08:00→20:00)
[2018-09-23 08:39] VITALS: O2SAT 99
[2018-09-23] MEDS: OCUVITE (VIT A,C & E/LUTEIN/MINERAL) TABLET PO SCH (08:51)
[2018-09-23] MEDS: FERROUS SULFATE 325 MG TAB PO SCH (08:51)
[2018-09-23] MEDS: DULOXETINE 20 MG CAP PO SCH (08:51)
[2018-09-23] MEDS: MAGNESIUM OXIDE 400 MG TAB PO SCH (08:51)
[2018-09-23] MEDS: POLYETHYL GLY 3350 17 GM/DOSE PO SCH (08:52)
[2018-09-23] MEDS: HEPARIN 5000 UNIT/ML 1 ML VIAL SQ SCH (09:28)
--- NOTE | 2018-09-23 15:18 | FAST ---
SHIFT START DATE/TIME: 09/23/2018 07:00 (CDT) SHIFT END DATE/TIME: 09/23/2018 19:00 (CDT) NAME JOSE ALEJANDRO ROSS DATE OF : 1930 DATE OF ADMISSION: 09/14/2018 18:33 (CDT) PHONE: AGE: 88 N# [id number] GENDER: Male ENCOUNTER PHYSICIAN: Dr. Deandre Solis M.D. 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 EATING: EATING - STEP 1: Does the patient require the assistance of a person or device, or need extra time when eating? Yes. EATING - STEP 2: Does the patient require the assistance of a helper? Yes. EATING - STEP 3: Does the patient perform half or more of the eating tasks? Yes. EATING - STEP 4: Does the patient need only supervision, cuing, coaxing OR help to apply an orthosis OR help to cut fo od, open containers, pour liquids, or butter bread? Yes. EATING - SCORE: 5-SUP GROOMING: Activity did not occur on this shift GROOMING - SCORE: 0-UNK BATHING: Activity did not occur on this shift BATHING - SCORE: 0-UNK DRESSING - UPPER BODY: Activity did not occur on this shift ARTICLES SCORE Total number of steps: 0 DRESSING - UPPER BODY - SCORE: 0-UNK DRESSING - LOWER BODY: Activity did not occur on this shift ARTICLES SCORE Total number of steps: 0 DRESSING - LOWER BODY - SCORE: 0-UNK TOILETING: TOILETING - STEP 1: Does the patient require the assistance of a person or device, or need extra time with toileting? Yes . TOILETING - STEP 2: Does the patient require the assistance of a helper? Yes. TOILETING - STEP 3: How much assistance does the patient require from the helper? Hands-on assistance from the helper TOILETING - STEP 4: Of the 3 tasks: 1) Adjusting clothing prior to use, 2) Cleansing of perineal area, 3) Adjusting clot dileep after use; How many tasks does the patient perform WITHOUT assistance of the helper? One task TOILETING - SCORE: 2-MAX BLADDER MANAGEMENT: Patient is on renal dialysis or peritoneal dialysis and no voiding activity BLADDER MANAGEMENT - SCORE: 7-IND BLADDER MANAGEMENT - FREQUENCY OF ACCIDENTS: BLADDER MANAGEMENT(FA) - STEP 1: How many accidents has the patient had during the current shift? 0 BOWEL MANAGEMENT: Activity did not occur on this shift BOWEL MANAGEMENT - SCORE: 7-IND BOWEL MANAGEMENT - FREQUENCY OF ACCIDENTS: BOWEL MANAGEMENT(FA) - STEP 1: How many accidents has the patient had during the current shift? 0 TRANSFERS: BED, CHAIR, WHEELCHAIR: TRANSFERS: BED, CHAIR, WHEELCHAIR - STEP 1: Does the patient require assistance of a person or device, or need extra time with bed, chair, or whe elchair transfers? Yes. TRANSFERS: BED, CHAIR, WHEELCHAIR - STEP 2: Does the patient require the assistance of a helper? Yes. TRANSFERS: BED, CHAIR, WHEELCHAIR - STEP 3: How much assistance does the patient require from the helper? Lifting of the patient TRANSFERS: BED, CHAIR, WHEELCHAIR - STEP 4: Does the helper lift the patient ONLY up? ONLY down? Up AND Down? Patient needs help with all lifting TRANSFERS: BED, CHAIR, WHEELCHAIR - SCORE: 1-DEP TRANSFERS: TOILET: TRANSFERS: TOILET - STEP 1: Does the patient require the assistance of a person or device, or need extra time with toilet transfe rs? Yes. TRANSFERS: TOILET - STEP 2: Does the patient require the assistance of a helper? Yes. TRANSFERS: TOILET - STEP 3: How much assistance does the patient require from the helper? Patient performs half or more of the tr ansferring tasks TRANSFERS: TOILET - STEP 4: Does the patient need only incidental help such as contact guard or steadying during toilet transfer? No. Patient needs more than incidental help TRANSFERS: TOILET - SCORE: 3-MOD TRANSFERS: SHOWER: Activity did not occur on this shift TRANSFERS: SHOWER - SCORE: 0-UNK TRANSFERS: TUB: Activity did not occur on this shift TRANSFERS: TUB - SCORE: 0-UNK LOCOMOTION: WALK: Activity did not occur on this shift LOCOMOTION: WALK - SCORE: 0-UNK LOCOMOTION: WHEELCHAIR: Activity did not occur on this shift LOCOMOTION: WHEELCHAIR - SCORE: 0-UNK COMPREHENSION: COMPREHENSION: TYPE: Both COMPREHENSION - STEP 1: Does the patient require help from a person or device, or need extra time to understand complex and a bstract ideas (such as current events, finances, discharge planning, medical issues, relationships, e tc)? Yes. COMPREHENSION - STEP 2: Does the patient require help to understand questions or statements about basic needs or ideas (such as hunger, thirst, sleep, safety, daily schedule, room location, or discomfort) half or more of the t ezio? No. COMPREHENSION - STEP 3: How often does the patient need help to understand directions and conversation about basic needs? 25% - 49% of the time COMPREHENSION - SCORE: 3-MOD EXPRESSION EXPRESSION: TYPE: Both EXPRESSION - STEP 1: Does the patient require help from a person or device, or need extra time expressing complex and abst ract ideas (such as current events, finances, discharge planning, medical issues, relationships, etc) ? Yes. EXPRESSION - STEP 2: Does the patient require help to express basic necessities or ideas (such as hunger, thirst, sleep, s afety, daily schedule, room location, or discomfort) half or more of the time? No. EXPRESSION - STEP 3: How often does the patient need help to express directions and conversation about basic needs? 25-49% of the time EXPRESSION - SCORE: 3-MOD SOCIAL INTERACTION: SOCIAL INTERACTION - STEP 1: Does the patient require a helper to interact with others in social and therapeutic situations? Yes. SOCIAL INTERACTION - STEP 2: Does the patient interact appropriately half or more of the time? Yes. SOCIAL INTERACTION - STEP 3: How often does the patient need help to interact appropriately? 25-49% of the time SOCIAL INTERACTION - SCORE: 3-MOD PROBLEM SOLVING: PROBLEM SOLVING - STEP 1: Does the patient need help from a person or device, or need extra time to solve complex problems such as managing a checking account or confronting interpersonal problems? Yes. PROBLEM SOLVING - STEP 2: Does the patient solve basic routine problems half or more of the time? Yes. PROBLEM SOLVING - STEP 3: How often does the patient need help to solve basic routine problems? 25%-49% of the time PROBLEM SOLVING - SCORE: 3-MOD MEMORY: MEMORY - STEP 1: Does the patient need help from a person or device, or need extra time to remember frequently encount ered people, daily routines, and executing requests? Yes. MEMORY - STEP 2: How often does the patient need help to remember frequently encountered people, daily routines, and e xecuting requests? 25% - 49% of the time MEMORY - SCORE: 3-MOD SIGNATURE PANEL: The following modified sections: Eating - Score, Grooming - Score, Bathing - Score, Dressing - Upper Body - Score, Dressing - Lower Body - Score, Toileting - Score, Bladder Management - Score, Bowel Man agement - Score, Transfers: Bed, Chair, Wheelchair - Score, Transfers: Toilet - Score, Transfers: Rupa wer - Score, Transfers: Tub - Score, Locomotion: Walk - Score, Locomotion: Wheelchair - Score, Compre hension - Score, Expression - Score, Social Interaction - Score, Problem Solving - Score, Memory - Sc ore were [electronically] signed by Su Pop C.N.A. on ThuSep 23 2018 15:16:49 T-0500 (Centra l Daylight Time)
--- NOTE | 2018-09-23 15:43 | FAST ---
ENCOUNTER DATE AND TIME: 09/23/2018 08:00 (CDT) NAME JOSE ALEJANDRO ROSS DATE OF : 1930 DATE OF ADMISSION: 09/14/2018 18:33 (CDT) PHONE: AGE: 88 N# [id number] GENDER: Male ENCOUNTER PHYSICIAN: Dr. Deandre Solis M.D. 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 EATING: Activity did not occur on this shift EATING - SCORE: 0-UNK GROOMING: Activity did not occur on this shift GROOMING - SCORE: 0-UNK BATHING: Activity did not occur on this shift BATHING - SCORE: 0-UNK DRESSING - UPPER BODY: Activity did not occur on this shift Patient is not dressing in public clothing ARTICLES SCORE Total number of steps: 0 DRESSING - UPPER BODY - SCORE: 0-UNK DRESSING - LOWER BODY: Activity did not occur on this shift Patient is not dressing in public clothing ARTICLES SCORE Total number of steps: 0 DRESSING - LOWER BODY - SCORE: 0-UNK TOILETING: Activity did not occur on this shift TOILETING - SCORE: 0-UNK BLADDER MANAGEMENT: Activity did not occur on this shift BLADDER MANAGEMENT - SCORE: 7-IND BOWEL MANAGEMENT: Activity did not occur on this shift BOWEL MANAGEMENT - SCORE: 7-IND TRANSFERS: BED, CHAIR, WHEELCHAIR: TRANSFERS: BED, CHAIR, WHEELCHAIR - STEP 1: Does the patient require assistance of a person or device, or need extra time with bed, chair, or whe elchair transfers? Yes. TRANSFERS: BED, CHAIR, WHEELCHAIR - STEP 2: Does the patient require the assistance of a helper? Yes. TRANSFERS: BED, CHAIR, WHEELCHAIR - STEP 3: How much assistance does the patient require from the helper? Steadying/guiding assistance TRANSFERS: BED, CHAIR, WHEELCHAIR - SCORE: 4-MIN TRANSFERS: TOILET: Activity did not occur on this shift TRANSFERS: TOILET - SCORE: 0-UNK TRANSFERS: SHOWER: Activity did not occur on this shift TRANSFERS: SHOWER - SCORE: 0-UNK TRANSFERS: TUB: Activity did not occur on this shift TRANSFERS: TUB - SCORE: 0-UNK LOCOMOTION: WALK: Patient walks less than 50 feet LOCOMOTION: WALK - SCORE: 1-DEP LOCOMOTION: WHEELCHAIR: Activity did not occur on this shift LOCOMOTION: WHEELCHAIR - SCORE: 0-UNK LOCOMOTION: STAIRS: Activity did not occur on this shift LOCOMOTION: STAIRS - SCORE: 0-UNK COMPREHENSION: COMPREHENSION - SCORE: 0-UNK EXPRESSION EXPRESSION - SCORE: 0-UNK SOCIAL INTERACTION: SOCIAL INTERACTION - SCORE: 0-UNK PROBLEM SOLVING: PROBLEM SOLVING - SCORE: 0-UNK MEMORY: MEMORY - SCORE: 0-UNK SIGNATURE PANEL: The following modified sections: Transfers: Bed, Chair, Wheelchair - Score, Transfers: Toilet - Score , Locomotion: Walk - Score, Locomotion: Wheelchair - Score, Locomotion: Stairs - Score were [electron ically] signed by Mert Ferguson PTA on ThuSep 23 2018 15:42:23 T-0500 (Central Daylight Time)
[2018-09-23] MEDS ORDERED: ALBUTEROL 2.5 MG/3 ML NEB SOL NEB PRN (16:00)
--- NOTE | 2018-09-23 17:06 | R.PN ---
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 SUBJECTIVE: Pt denied any Shortness of Breath. Pt denied any depression. Hgb 9.1, WBC 5.0, creatinine 4046, prealbumin 9.6. Barium swallow test shows no aspiration but signif icant esophageal stasis and reflux. Ambulated 10' with maximum assistance using a rolling walker. Quickly fatigues and his knee bend, req uiring frequent cueing to walk upright. Repeat head CT shows no unexpected findings. Evolving 4 cm late subacute left parietal lobe ischemic stroke. X-rays of left ankle and foot shows no acute changes but vascular calcifications and osteopor osis. VITAL SIGNS Temperature: 97.6 F SBP/DBP: 106/53 Pulse: 68 Resp: 16 MEDICATION ALLERGIES: DOXYCYCLINE Iodine ENVIRONMENTAL ALLERGIES: None Known - Substance Allergies None Known - Other Allergies None Known NURSING: - Shower allowing shower - Bladder care per protocol - Skin care per protocol PRECAUTIONS: - Fall Precaution Bed and chair alarm ACTIVITIES OOB only with supervision THERAPIES: - Occupational Therapy Evaluate and Treat. Visual Perceptual Training. Cognitive Retraining. - Speech Therapy Cognitive Training. Memory Strategies. Speech Intelligibility Training. Expressive Language Skills. R eceptive Language Skills. - Physical Therapy Evaluate and Treat. PHYSICAL EXAM - Gen Alert and awake Lying in bed No apparent distress Oriented to: person, time, and place - Skin No breakdown No abnormalities - Eyes No abnormalities - ENMT No abnormalities - Neck No abnormalities - CVS RRR - Chest Clear - Abd + bowel sounds - GI nondistended Deferred - No abnormalities - Ext No significant edema - MSK 4+/5 weakness in left upper and lower extremity - Neuro 4/5 strength right upper and lower extremities. Mild expressive and receptive aphasia. - Psych No abnormalities ASSESSMENT: Pt. is a 88 yo Right-handed white male.On 09/01/2018 Pt. presented to [facility] with sudden onset of right-side weakness.On 09/01/2018 he was admitted to [facility] with diagnosis Left MCA.His impairment category is Stroke 01 - Right Body (Left Brain) (01.2 ).Pre-morbidly, Pt. was independent/mod-I in Self-Care, Sphincter Control, Transfers Control, Locomot ion, Communication, and Social Cognition; and he had good Sphincter Control.Currently, he has deficit s of Transfers Control, Locomotion, Communication, Social Cognition, Endurance, Balance, Safety Aware ness, and Self-Care.Pt. is now referred to [facility] for acute in-patient giancarlo abilitation in order to maximize patient's functional independence in activities of daily living, str ength, ROM, and mobility.- Rehab Goal Patient has realistic goal of being discharged at assistance level 6-Princess to reside at Home with Fam ming/Relatives. MDM/PLAN: - Physical Therapy Gait dysfunction - to improve, our physical therapists will perform initial evaluation of pt's statu s upon admission and devise an individualized program for Gait Training, and Wheel Chair mobility Inability to transfer - to improve, our physical therapists will perform initial evaluation of pt's status upon admission and devise an individualized program for Bed mobility Need for home safety evaluation - to improve, our physical therapists will perform initial evaluatio n of pt's status upon admission and devise an individualized program for Home Evaluation Need in caregiver upon discharge - to improve, our physical therapists will perform initial evaluati on of pt's status upon admission and devise an individualized program for Caregiver Training Edema - to improve, our physical therapists will perform initial evaluation of pt's status upon admi ssion and devise an individualized program for Elevation Training, and Lymphedema Therapy New precaution - to improve, our physical therapists will perform initial evaluation of pt's status upon admission and devise an individualized program for Patient precaution education Poor balance - to improve, our physical therapists will perform initial evaluation of pt's status up on admission and devise an individualized program for Balance Training Poor endurance - to improve, our physical therapists will perform initial evaluation of pt's status upon admission and devise an individualized program for Endurance Training Weakness - to improve, our physical therapists will perform initial evaluation of pt's status upon a dmission and devise an individualized program for Aquatic Therapy, Neuromuscular Reeducation, and Str engthening Achieving independence - to improve, our physical therapists will perform initial evaluation of pt's status upon admission and devise an individualized program for Community Reintegration Activities - Occupational Therapy ADL deficits - to improve, our occupation therapists will perform initial evaluation of pt's status upon admission and devise an individualized program for Bathing, Bed mobility, Community Reintegratio n, Cooking, Dressing, Eating, Fine Motor Skills, Grooming, Homemaking, Kitchen Mobility, Laundry, Pat ient Education, Safety Awareness, Splinting - Positioning, Transfers(Toilet, Tub, Shower), and Wheel Chair Management Cognitive deficits - to improve, our occupation therapists will perform initial evaluation of pt's s tatus upon admission and devise an individualized program for Cognition - orientation Need for animal care specialist - to improve, our occupation therapists will perform initial evaluation of pt's status upon admission and devise an individualized program for Caregiver Training Weakness - to improve, our occupation therapists will perform initial evaluation of pt's status upon admission and devise an individualized program for Aquatic Therapy, Balance, Endurance, UE ROM, and UE strengthening - Diet Type Continue Regular - Diet - Liquid Texture Continue Regular - Tube Feed Continue N/A - Bladder care per protocol - Weight Bearing Precaution WBAT right LE - Fall Precaution Bed and chair alarm - Skin care per protocol - Diet - Solid Texture Continue Regular - Shower allowing shower for Dementia, TBI, Stroke, or others FUNCTIONAL STATUS: UPDATED AT WEEKLY TEAM CONFERENCE - Bladder Same accident frequency: 7-Ind - No accidents in the past 7 days - Bowel Same accident frequency: 7-Ind - No accidents in the past 7 days - Walking Same score based on distance walked: 1(<=50ft) - Wheelchair Same score based on distance traveled: 0(N/A) FUNCTIONAL STATUS: - Self-Care A. Eating Princess B. Grooming sup C. Bathing sup D. Dressing - Upper sup E. Dressing - Lower sup F. Toileting sup - Sphincter Control G: Bladder control Ind H: Bowel control Ind - Transfers Control I. Bed/Chair/Wheelchair maxA J. Toilet maxA K. Tub/Shower ADNO - Locomotion L. Walk/Wheelchair (C) maxA L. Walk/Wheelchair (W) maxA M. Stairs ADNO - Communication N. Comprehension (B) Gale O. Expression (B) Gale - Social Cognition P. Social Interaction Gale Q. Problem Solving modA R. Memory modA - Endurance Fair - Balance Fair - Safety Awareness Fair CURRENT FUNC. DEFICITS: Transfers Control, Locomotion, Communication, Social Cognition, Endurance, Balance, Safety Awareness, and Self-Care SIGNATURE PANEL: (CDT)
[2018-09-23] MEDS: ATORVASTATIN 20 MG TAB PO SCH (20:47)
[2018-09-23] MEDS: NEPRO SHAKE 237 ML CAN PO SCH (20:47)
[2018-09-23] MEDS: GABAPENTIN 100 MG CAP PO SCH (20:47)
[2018-09-23] MEDS: MEGESTROL 400 MG/10 ML UCUP PO SCH (20:48)
[2018-09-23] MEDS: DOCUSATE NA/SENNA CONC 1 TAB PO SCH (20:48)
--- NOTE | 2018-09-24 00:58 | FAST ---
SHIFT START DATE/TIME: 09/23/2018 19:00 (CDT) SHIFT END DATE/TIME: 09/24/2018 07:00 (CDT) NAME JOSE ALEJANDRO ROSS DATE OF : 1930 DATE OF ADMISSION: 09/14/2018 18:33 (CDT) PHONE: AGE: 88 N# [id number] GENDER: Male ENCOUNTER PHYSICIAN: Dr. Deandre Solis M.D. 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 EATING: Activity did not occur on this shift EATING - SCORE: 0-UNK GROOMING: Activity did not occur on this shift GROOMING - SCORE: 0-UNK BATHING: Activity did not occur on this shift BATHING - SCORE: 0-UNK DRESSING - UPPER BODY: Patient is not dressing in public clothing ARTICLES SCORE Total number of steps: 0 DRESSING - UPPER BODY - SCORE: 0-UNK DRESSING - LOWER BODY: Patient is not dressing in public clothing ARTICLES SCORE Total number of steps: 0 DRESSING - LOWER BODY - SCORE: 0-UNK TOILETING: TOILETING - STEP 1: Does the patient require the assistance of a person or device, or need extra time with toileting? Yes . TOILETING - STEP 2: Does the patient require the assistance of a helper? Yes. TOILETING - STEP 3: How much assistance does the patient require from the helper? Hands-on assistance from the helper TOILETING - STEP 4: Of the 3 tasks: 1) Adjusting clothing prior to use, 2) Cleansing of perineal area, 3) Adjusting clot dileep after use; How many tasks does the patient perform WITHOUT assistance of the helper? No tasks; kori tirado performs all three tasks TOILETING - SCORE: 1-DEP BLADDER MANAGEMENT: BLADDER MANAGEMENT - STEP 1: Does the patient control the bladder completely and intentionally without equipment or devices or med ications, and is always continent? No. BLADDER MANAGEMENT - STEP 2: Does the patient require the assistance of a helper? Yes. BLADDER MANAGEMENT - STEP 3: How much assistance does the patient require from the helper? Only set-up of equipment - such as plac ing it within reach of the patient or emptying a device - to maintain either satisfactory voiding pat tern or managing an external device, such as an absorbent pad, ileal device, or catheter BLADDER MANAGEMENT - SCORE: 5-SUP BOWEL MANAGEMENT: Activity did not occur on this shift BOWEL MANAGEMENT - SCORE: 7-IND TRANSFERS: BED, CHAIR, WHEELCHAIR: Patient requires more than one helper and/or the use of a mechanical lift is utilized TRANSFERS: BED, CHAIR, WHEELCHAIR - SCORE: 1-DEP TRANSFERS: TOILET: Patient requires more than one helper and/or the use of a mechanical lift is utilized TRANSFERS: TOILET - SCORE: 1-DEP TRANSFERS: SHOWER: Activity did not occur on this shift TRANSFERS: SHOWER - SCORE: 0-UNK TRANSFERS: TUB: Activity did not occur on this shift TRANSFERS: TUB - SCORE: 0-UNK LOCOMOTION: WALK: Activity did not occur on this shift LOCOMOTION: WALK - SCORE: 0-UNK LOCOMOTION: WHEELCHAIR: Activity did not occur on this shift LOCOMOTION: WHEELCHAIR - SCORE: 0-UNK COMPREHENSION: COMPREHENSION: TYPE: Both COMPREHENSION - STEP 1: Does the patient require help from a person or device, or need extra time to understand complex and a bstract ideas (such as current events, finances, discharge planning, medical issues, relationships, e tc)? Yes. COMPREHENSION - STEP 2: Does the patient require help to understand questions or statements about basic needs or ideas (such as hunger, thirst, sleep, safety, daily schedule, room location, or discomfort) half or more of the t ezio? No. COMPREHENSION - STEP 3: How often does the patient need help to understand directions and conversation about basic needs? 25% - 49% of the time COMPREHENSION - SCORE: 3-MOD EXPRESSION EXPRESSION: TYPE: Both EXPRESSION - STEP 1: Does the patient require help from a person or device, or need extra time expressing complex and abst ract ideas (such as current events, finances, discharge planning, medical issues, relationships, etc) ? Yes. EXPRESSION - STEP 2: Does the patient require help to express basic necessities or ideas (such as hunger, thirst, sleep, s afety, daily schedule, room location, or discomfort) half or more of the time? No. EXPRESSION - STEP 3: How often does the patient need help to express directions and conversation about basic needs? 25-49% of the time EXPRESSION - SCORE: 3-MOD SOCIAL INTERACTION: SOCIAL INTERACTION - STEP 1: Does the patient require a helper to interact with others in social and therapeutic situations? No. SOCIAL INTERACTION - STEP 2: Does the patient need extra time in social situations, OR does s/he interact with staff, other patien ts, and family members ONLY in structured environments, OR does s/he require medication for social in teraction? Yes, patient requires medication for social interaction SOCIAL INTERACTION - SCORE: 6-CATHY PROBLEM SOLVING: PROBLEM SOLVING - STEP 1: Does the patient need help from a person or device, or need extra time to solve complex problems such as managing a checking account or confronting interpersonal problems? Yes. PROBLEM SOLVING - STEP 2: Does the patient solve basic routine problems half or more of the time? Yes. PROBLEM SOLVING - STEP 3: How often does the patient need help to solve basic routine problems? 25%-49% of the time PROBLEM SOLVING - SCORE: 3-MOD MEMORY: MEMORY - STEP 1: Does the patient need help from a person or device, or need extra time to remember frequently encount ered people, daily routines, and executing requests? Yes. MEMORY - STEP 2: How often does the patient need help to remember frequently encountered people, daily routines, and e xecuting requests? 25% - 49% of the time MEMORY - SCORE: 3-MOD SIGNATURE PANEL: The following modified sections: Eating - Score, Grooming - Score, Dressing - Upper Body - Score, Kyrie ssing - Lower Body - Score, Toileting - Score, Bladder Management - Score, Bowel Management - Score, Transfers: Bed, Chair, Wheelchair - Score, Transfers: Toilet - Score, Transfers: Shower - Score, [place] sfers: Tub - Score, Locomotion: Walk - Score, Locomotion: Wheelchair - Score, Comprehension - Score, Expression - Score, Social Interaction - Score, Problem Solving - Score, Memory - Score were [electro nically] signed by Carmen Caal CNA on ThuSep 24 2018 00:57:18 GMT-0500 (Central Daylight Time)
[2018-09-24] MEDS: PANTOPRAZOLE 40MG TABLET PO SCH (06:49)
[2018-09-24] MEDS: CARVEDILOL 3.125 MG TAB PO SCH (08:00)
[2018-09-24 08:38] VITALS: BP 114/55
--- NOTE | 2018-09-24 09:39 | P.RH.PN ---
Estimated Length of Stay: 11 Expected Discharge Date: 09/24/18 Discharge Disposition Plan: Home Family Support: Yes Halfway Goal: Mobility, Transfers, Self Care Vital Signs: Last Vital Signs Temp 97.1 F 09/23/18 20:00 Pulse 65 09/24/18 08:00 Resp 18 09/23/18 20:00 BP 114/55 L 09/24/18 08:00 Pulse Ox 98 09/23/18 20:00 Laboratory: Laboratory Last Values WBC 5.0 K/uL (4.3-10.9) 09/23/18 06:16 RBC 3.12 M/uL (4.33-5.43) L 09/23/18 06:16 Hgb 9.1 g/dL (13.6-17.9) L 09/23/18 06:16 Hct 29.1 % (39.6-49.0) L 09/23/18 06:16 MCV 93.4 fL (80-100) 09/23/18 06:16 MCH 29.0 pg (27.0-35.0) 09/23/18 06:16 MCHC 31.1 g/dL (32.0-36.0) L 09/23/18 06:16 RDW 18.1 % (12.1-15.2) H 09/23/18 06:16 Plt Count 236 K/uL (152-406) 09/23/18 06:16 MPV 6.7 fL (7.6-11.3) L 09/23/18 06:16 Neutrophils % 68.8 % (41.7-73.7) 09/23/18 06:16 Lymphocytes % 15.1 % (15.3-44.8) L 09/23/18 06:16 Monocytes % 12.6 % (3.3-12.3) H 09/23/18 06:16 Eosinophils % 2.7 % (0-4.4) 09/23/18 06:16 Basophils % 0.8 % (0-1.3) 09/23/18 06:16 Absolute Neutrophils 3.4 K/uL (1.8-8.0) 09/23/18 06:16 Absolute Lymphocytes 0.7 K/uL (0.7-4.9) 09/23/18 06:16 Absolute Monocytes 0.6 K/uL (0.1-1.3) 09/23/18 06:16 Absolute Eosinophils 0.1 K/uL (0-0.5) 09/23/18 06:16 Absolute Basophils 0.0 K/uL (0-0.5) 09/23/18 06:16 Sodium 139 mmol/L (136-145) 09/23/18 06:16 Potassium 3.9 mmol/L (3.5-5.1) 09/23/18 06:16 Chloride 102 mmol/L (98-107) 09/23/18 06:16 Carbon Dioxide 30 mmol/L (21-32) 09/23/18 06:16 BUN 33 mg/dL (7-18) H 09/23/18 06:16 Creatinine 4.46 mg/dL (0.55-1.3) H D 09/23/18 06:16 Estimated GFR 13 mL/min (=/>90) L 09/23/18 06:16 Glucose 91 mg/dL (74-106) 09/23/18 06:16 Uric Acid 2.9 mg/dL (3.5-7.2) L 09/18/18 06:20 Calcium 8.3 mg/dL (8.5-10.1) L 09/23/18 06:16 Magnesium 2.2 mg/dL (1.8-2.4) 09/15/18 06:01 CK-MB (CK-2) 1.5 ng/mL (0.3-3.6) 09/23/18 06:16 Albumin 2.2 g/dL (3.4-5.0) L 09/23/18 06:16 Prealbumin 9.6 mg/dL (20-40) L 09/23/18 06:16 Weight: 157 lb Wound Present: No Closed Surgical Incision Present: No Negative Pressure Wound Therapy Present: No Physician Update: His labs been reviewed and are stable. His is having dialysis today before discharge to snf. 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 Medication Issues: DVT Prophylaxis - heparin 5,000 units SQ daily Functional Improvement: Patient presents w/ depression-like demeanor and increased lethargy. Patient appears to be able to be capable of physically completing tasks, however psychologically limits self. Functional Improvement Occupational Therapy: pt can benifit with further therapy to address pt's overall weakness and endurance for adl tasks training the pt on using A/E as needed and energy conservation techniques. Cont with the POC and the goals by the supervising OTR. Speech Therapy Update: Patient cont. to require MOD A for Auditory Comprehension , Verbal Expression, Problem Solving, and Memory. He is at [facility] for Social Interaction. The biggest limiting factor appears to be pt.'s endurance and alertness level. Summary: Patient's care plan and rn document improvement specialist goals have been reviewed and revised as necessary. Please see the Rehabilitation Signature page for all necessary signatures.
[2018-09-24 09:57] VITALS: TEMP 96.2
--- NOTE | 2018-09-24 11:59 | P.PN ---
Subjective Date of Service: 09/24/18 Chief Complaint: dysphagia, s/p CVA Subjective: No new changes pt with CVA and ESRD HD MWF stable vS no edema Physical Examination - Vital Signs Temperature: 96.2 F Blood Pressure: 114/55 Pulse: 65 Respirations: 16 Pulse Ox (%): 98 - Physical Exam General: Alert, In no apparent distress HEENT: Atraumatic Neck: Supple, Without JVD or thyroid abnormality Respiratory: Clear to auscultation bilaterally, Normal air movement Cardiovascular: No edema, Regular rate/rhythm, Normal S1 S2, No rubs, No murmurs Gastrointestinal: Normal bowel sounds, Soft and benign Assessment And Plan - Current Problems (Diagnosis) (1) Acute CVA (cerebrovascular accident) Onset Date: 09/01/18 Current Visit: No Status: Acute (2) ESRD on dialysis Onset Date: 10/12/17 Current Visit: No Status: Chronic - Plan ESRD will cont HD MWF renal dose meds CVA Cont PT/OT MBD phos controlled Anemia cont GUNJAN .
[2018-09-24] MEDS: OCUVITE (VIT A,C & E/LUTEIN/MINERAL) TABLET PO SCH (14:07)
[2018-09-24] MEDS: FERROUS SULFATE 325 MG TAB PO SCH (14:07)
[2018-09-24] MEDS: CYANOCOBALAMIN 1,000 MCG TAB PO SCH (14:07)
[2018-09-24] MEDS: MAGNESIUM OXIDE 400 MG TAB PO SCH (14:07)
[2018-09-24] MEDS: DULOXETINE 20 MG CAP PO SCH (14:07)
[2018-09-24] MEDS: POLYETHYL GLY 3350 17 GM/DOSE PO SCH (14:07)
[2018-09-24] MEDS: HEPARIN 5000 UNIT/ML 1 ML VIAL SQ SCH (14:07)
--- NOTE | 2018-09-24 16:55 | FAST ---
SHIFT START DATE/TIME: 09/24/2018 07:00 (CDT) SHIFT END DATE/TIME: 09/24/2018 19:00 (CDT) NAME JOSE ALEJANDRO ROSS DATE OF : 1930 DATE OF ADMISSION: 09/14/2018 18:33 (CDT) PHONE: AGE: 88 N# [id number] GENDER: Male ENCOUNTER PHYSICIAN: Dr. Deandre Solis M.D. 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 EATING: EATING - STEP 1: Does the patient require the assistance of a person or device, or need extra time when eating? Yes. EATING - STEP 2: Does the patient require the assistance of a helper? No, patient only requires an assistive device, O R s/he takes more than reasonable time to eat, OR there is a safety concern, OR s/he requires modifie d food consistency EATING - SCORE: 6-CATHY GROOMING: Comb/brush hair GROOMING - STEP 1: Does the patient require the assistance of a person or device, or need extra time when grooming? Yes. GROOMING - STEP 2: Does the patient require the assistance of a helper? Yes. GROOMING - STEP 3: How much assistance does the patient require from the helper? Incidental touching assistance from the helper while grooming GROOMING - SCORE: 4-MIN BATHING: Activity did not occur on this shift BATHING - SCORE: 0-UNK DRESSING - UPPER BODY: Activity did not occur on this shift ARTICLES SCORE Total number of steps: 0 DRESSING - UPPER BODY - SCORE: 0-UNK DRESSING - LOWER BODY: Underwear (three steps) ARTICLES SCORE Total number of steps: 3 DRESSING - LOWER BODY - STEP 1: Does the patient require help from a person or device, or need extra time when dressing below the woody st? Yes. DRESSING - LOWER BODY - STEP 2: Does the patient require the assistance of a helper? Yes. DRESSING - LOWER BODY - STEP 3: Does the helper touch the patient while dressing? Yes. DRESSING - LOWER BODY - STEP 4: How many of the total steps does the patient complete on his/her own? 1 DRESSING - LOWER BODY - STEP 5: Does patient require total assistance for dressing below the waist such as the helper holding clothin g and performing basically all the activities? Yes. DRESSING - LOWER BODY - SCORE: 1-DEP TOILETING: TOILETING - STEP 1: Does the patient require the assistance of a person or device, or need extra time with toileting? Yes . TOILETING - STEP 2: Does the patient require the assistance of a helper? Yes. TOILETING - STEP 3: How much assistance does the patient require from the helper? Hands-on assistance from the helper TOILETING - STEP 4: Of the 3 tasks: 1) Adjusting clothing prior to use, 2) Cleansing of perineal area, 3) Adjusting clot dileep after use; How many tasks does the patient perform WITHOUT assistance of the helper? No tasks; h elper performs all three tasks TOILETING - SCORE: 1-DEP BLADDER MANAGEMENT: Patient is on renal dialysis or peritoneal dialysis and no voiding activity BLADDER MANAGEMENT - SCORE: 7-IND BLADDER MANAGEMENT - FREQUENCY OF ACCIDENTS: BLADDER MANAGEMENT(FA) - STEP 1: How many accidents has the patient had during the current shift? 0 BOWEL MANAGEMENT: BOWEL MANAGEMENT - STEP 1: Does the patient control bowels completely and intentionally without equipment devices or medications AND is always continent? Yes. BOWEL MANAGEMENT - SCORE: 7-IND BOWEL MANAGEMENT - FREQUENCY OF ACCIDENTS: BOWEL MANAGEMENT(FA) - STEP 1: How many accidents has the patient had during the current shift? 0 TRANSFERS: BED, CHAIR, WHEELCHAIR: TRANSFERS: BED, CHAIR, WHEELCHAIR - STEP 1: Does the patient require assistance of a person or device, or need extra time with bed, chair, or whe elchair transfers? Yes. TRANSFERS: BED, CHAIR, WHEELCHAIR - STEP 2: Does the patient require the assistance of a helper? Yes. TRANSFERS: BED, CHAIR, WHEELCHAIR - STEP 3: How much assistance does the patient require from the helper? Lifting of the patient TRANSFERS: BED, CHAIR, WHEELCHAIR - STEP 4: Does the helper lift the patient ONLY up? ONLY down? Up AND Down? ONLY up. TRANSFERS: BED, CHAIR, WHEELCHAIR - SCORE: 3-MOD TRANSFERS: TOILET: TRANSFERS: TOILET - STEP 1: Does the patient require the assistance of a person or device, or need extra time with toilet transfe rs? Yes. TRANSFERS: TOILET - STEP 2: Does the patient require the assistance of a helper? Yes. TRANSFERS: TOILET - STEP 3: How much assistance does the patient require from the helper? Patient performs less than half of the transferring tasks TRANSFERS: TOILET - STEP 4: Does the patient require total assistance for the toilet transfer such as the helper doing basically all the lifting? Yes. TRANSFERS: TOILET - SCORE: 1-DEP TRANSFERS: SHOWER: Activity did not occur on this shift TRANSFERS: SHOWER - SCORE: 0-UNK TRANSFERS: TUB: Activity did not occur on this shift TRANSFERS: TUB - SCORE: 0-UNK LOCOMOTION: WALK: Activity did not occur on this shift LOCOMOTION: WALK - SCORE: 0-UNK LOCOMOTION: WHEELCHAIR: Activity did not occur on this shift LOCOMOTION: WHEELCHAIR - SCORE: 0-UNK COMPREHENSION: COMPREHENSION - SCORE: 0-UNK EXPRESSION EXPRESSION - SCORE: 0-UNK SOCIAL INTERACTION: SOCIAL INTERACTION - SCORE: 0-UNK PROBLEM SOLVING: PROBLEM SOLVING - SCORE: 0-UNK MEMORY: MEMORY - SCORE: 0-UNK SIGNATURE PANEL: The following modified sections: Eating - Score, Grooming - Score, Bathing - Score, Dressing - Upper Body - Score, Dressing - Lower Body - Score, Toileting - Score, Bladder Management - Score, Bowel Man agement - Score, Transfers: Bed, Chair, Wheelchair - Score, Transfers: Toilet - Score, Transfers: Rupa wer - Score, Transfers: Tub - Score, Locomotion: Walk - Score, Locomotion: Wheelchair - Score, Compre hension - Score, Expression - Score, Social Interaction - Score, Problem Solving - Score, Memory - Sc ore were [electronically] signed by Evelyn Stout CNA on ThuSep 24 2018 16:54:33 T-0500 (Centra l Daylight Time)
--- NOTE | 2018-09-26 16:37 | CON ---
Date of Consultation: 09/16/2018 Reason For Consultation: Dysphagia, odynophagia, reflux disease. History Of Present Illness: The patient is an 88-year-old white male with history of coronary artery disease, colon cancer resection September 2008, colon polyps, diverticulitis, diverticulosis, hemorrhoid s, hypertension, chronic kidney disease, coronary artery disease status post CABG, and kidney stent. The patient presented to hospital and in rehabilitation due to status post stroke 2 weeks ago, had d ysphagia since stroke. The patient has had dysphagia to solids in the lower chest, some choking and coughing. Modified barium swallows revealed no aspiration. However, the patient states he has pain in the chest with solids in the lower chest is mild. He has since had a history of acid reflux disea se and has been on acid suppression therapy. He also notes recent hypotension events in hospital, sp ontaneous while in the rehab unit. His blood pressure is noted to be low at times. Past Medical History: As stated above, significant for hypertension; coronary artery disease, status post CABG; coronary stents; colon cancer in August 2008, status post resection; chronic kidney diseas e with kidney stent noted in the past; hemorrhoids; colon polyps; and anemia. Home Medicines: Include aspirin, carvedilol, folic acid, hydralazine, lisinopril, omeprazole, simvas tatin, vitamin D3, PreserVision capsule. Allergies: TO DOXYCYCLINE AND IODINE. Social History: . No tobacco or alcohol. Family History: Other family members including children with history of colon cancer as well. Review of Systems: The patient has dysphagia, odynophagia, reflux disease, decreased mood. No anxiety. No melena, simon tochezia, masses coffee-grounds, emesis, hematuria, dysuria, polyuria, polydipsia, chest pain, shortn ess of breath, seizure, syncope, lower extremity edema, muscle aches, joint aches, backaches, but rosas s have some depression, situational depression with a stroke. It appears decreased mood noted in the hospital by multiple people including staff and family. Physical Examination: Vital Signs: The patient is 5 foot 7 inch, 157 pounds, BMI of 25 kg/m2. Temperature 96.4 degrees Fa hrenheit, pulse 58, respiratory rate 18, blood pressure 120/60, O2 saturation 98%. General: He is an elderly male, sitting in a wheelchair, in no acute distress. Somewhat decreased m ood. HEENT: Normocephalic, atraumatic. Anicteric. Pupils equal, round, and reactive to light. Extraocu lar movements intact. Oropharynx is clear. Neck: Supple. No masses. Respirations: Clear to auscultation bilaterally. Cardiac: Regular rate and rhythm. No gallops or rubs. Gastrointestinal: Positive bowel sounds. Soft, nontender, nondistended. No hepatosplenomegaly. Extremities: No clubbing, cyanosis, or edema. 2+ pulses. Neuro: Alert and oriented x3. Decreased motor function of the body. Somewhat lethargic and able to move all extremities well. Laboratory Data: The patient has a white count of 5.2, hemoglobin of 8.6, hematocrit 28, MCV of 93, platelet count 284, polys of 70%, lymphocytes 17%, monocytes 9%, eosinophils 3%. He has a sodium 138 , potassium 4.3, chloride 101, bicarb 32, BUN 35, creatinine of 4.34, glucose 108, calcium 8.4, pre-a lbumin 11.8, magnesium 2.2 yesterday, albumin 2.5 yesterday. Impression: 1.Dysphagia, status post stroke 2 weeks ago. This patient has been present since stroke only, dysph agia to solids in lower chest. The patient passed modified-barium swallow yesterday with no aspirati ons noted, though he has occasional choking and coughing. 2.Odynophagia in the lower chest, mild. This could be due to pill esophagitis or his reflux disease causing esophagitis or other. 3.History of reflux disease, on acid suppression therapy. 4.Recent hypotension events in the hospital, increase risk of hypotensive events and further worseni ng strokes if given sedation with the upper endoscopy. 5.Protein-calorie malnutrition with albumin 2.5, pre-albumin low at 11.6. Recommendation: 1.Continue speech therapy, status post tertiary gaining swallow function. EGD after neuro clearance and hypotensive events have resolved. 2.Continue speech pathology recommendations and diet and continue speech therapy. 3.Barium swallow function fully, though no aspiration is noted on modified barium swallow. 4.Consider PEG tube as indicated. The family currently does not want to proceed it after talk with daughter. CELINA/MODL Voice ID: [id number] Report ID: [id number]
[2018-09-27 13:48] LABS: Vitamin D 1,25-Dihydroxy Total 9 pg/mL (18-72); Vitamin D,1,25-OH2, D2 <8 pg/mL
== END 2018-09-24 14:50 | DRG 56 ==
LOC: 5TH 12:22
PROVIDERS: ADMIT Psychiatry & Neurology Neurology with Special Qualifications in Child Neurology; ATTEND Psychiatry & Neurology Neurology with Special Qualifications in Child Neurology
PROC: 5A1D70Z Performance of Urinary Filtration, Intermittent, Less than 6 Hours Per Day (ICD-10-PCS; 2018-09-15)
PROC: 5A1D70Z Performance of Urinary Filtration, Intermittent, Less than 6 Hours Per Day (ICD-10-PCS; 2018-09-17)
PROC: 5A1D70Z Performance of Urinary Filtration, Intermittent, Less than 6 Hours Per Day (ICD-10-PCS; 2018-09-20)
PROC: 5A1D70Z Performance of Urinary Filtration, Intermittent, Less than 6 Hours Per Day (ICD-10-PCS; 2018-09-22)
PROC: 5A1D70Z Performance of Urinary Filtration, Intermittent, Less than 6 Hours Per Day (ICD-10-PCS; principal; 2018-09-24)
DX: I69.351 Hemiplegia and hemiparesis following cerebral infarction affecting right dominant side (principal); N18.6 End stage renal disease; I13.2 Hypertensive heart and chronic kidney disease with heart failure and with stage 5 chronic kidney disease, or end stage renal disease; N25.81 Secondary hyperparathyroidism of renal origin; I50.20 Unspecified systolic (congestive) heart failure; J44.1 Chronic obstructive pulmonary disease with (acute) exacerbation; E46 Unspecified protein-calorie malnutrition; I69.320 Aphasia following cerebral infarction; I69.391 Dysphagia following cerebral infarction; F90.9 Attention-deficit hyperactivity disorder, unspecified type; I48.91 Unspecified atrial fibrillation; I25.10 Atherosclerotic heart disease of native coronary artery without angina pectoris; D63.1 Anemia in chronic kidney disease; E87.5 Hyperkalemia; N25.0 Renal osteodystrophy; K59.00 Constipation, unspecified; R53.81 Other malaise; R13.10 Dysphagia, unspecified; Z68.24 Body mass index [BMI] 24.0-24.9, adult; Z99.2 Dependence on renal dialysis
CPT/HCPCS: 36415; 70450; 71045; 74230; 80048; 82040; 82553; 82652; 83735; 84134; 84550; 85025; 87804; 90935; 92507; 92523; 92526; 92611; 94640; 97110; 97112; 97116; 97162; 97167; 97530; J1644; Q4081